=== PATIENT | male | born 1930 | race Caucasian/White ===

== ENCOUNTER 2016-08-29 20:08 | Inpatient (IN) | payer OTHER, MEDICARE ==
[~2016-08-29] VITALS: Ht 190.5 cm; Wt 104.5 kg
[~2016-08-29 20:08] MED LIST: ACETAMINOPHEN/O1 TAB PO; AMLODIPINE10 MG PO; ASPIRIN81 M1 PO; ATORVASTATIN CA20 MG PO; CEFUROXIME250 M1 PO; FUROSEMIDE20 M1 PO; HYDRALAZINE HCL25 MG PO; HYDRALAZINE HCL50 M1 PO; IMDUR60 MG PO; LEVOTHROID SO0.05 MG PO; LIPITOR20 MG PO; LYRICA75 MG PO; METOPROLOL TART50 MG PO; OMEPRAZOLE20 M2 PO; PROCRIT20000 UNIT SC; ROCALTROL0.25 MCG PO; SODIUM BICARBO648 MG PO; TRANDATE100 MG PO; VALSARTAN320 MG PO; VITAMIN D1000 IU PO; ZETIA10 MG PO
--- NOTE | 2016-08-29 20:42 | ED AMS/SEIZURE/WEAK/DIZZY ---
History of Present Illness General Chief Complaint: General Adult Stated Complaint: SIB LATOYA OSMAN, KIDNEY FAILURE? Source: patient, family, old records Exam Limitations: no limitations Vital Signs & Intake/Output Vital Signs & Intake/Output Vital Signs Date Time Temp Pulse Resp B/P Pulse O2 O2 Flow FiO2 Ox Delivery Rate 08/29 2010 98.5 68 18 165/72 94 Room Air Allergies Coded Allergies: NO KNOWN ALLERGIES (09/28/15) Reconcile Medications Amlodipine Besylate (Amlodipine) 10 MG TAB 1 TAB PO DAILY HTN (Reported) Aspirin 81 MG CTB 1 TAB PO DAILY HEART (Reported) Atorvastatin Calcium (Lipitor) 20 MG TAB 1 TAB PO DAILY CHOLESTEROL (Reported ) Calcitriol (Rocaltrol) 0.25 MCG SGL 1 CAP PO DAILY VIT (Reported) Epoetin Earnest (Procrit) 20,000 UNIT/1 ML VIAL 30,000 U SC ONCE A WEEK ANEMIA Ezetimibe (Zetia) 10 MG TAB 1 TAB PO DAILY CHOLESTEROL (Reported) Furosemide 20 MG TABLET 20 MG PO DAILY HEART FAILURE Hydralazine HCl 50 MG TABLET 1 TAB PO BID HTN (Reported) Isosorbide Mononitrate (Imdur) [address] 1 TAB PO DAILY HEART (Reported) Labetalol (Trandate) 100 MG TABLET 300 MG PO BID BLOOD PRESSURE Levothyroxine Sodium (Levothroid Sodium) 0.05 MG TAB 1 TAB PO DAILY THYROID ( Reported) Omeprazole 20 MG CAPSULE.DR 40 MG PO BID gi bleed Pregabalin (Lyrica) 75 MG CAP 1 TAB PO DAILY PAIN (Reported) Sodium Bicarbonate 648 MG TAB 1 TAB PO DAILY HEART (Reported) Triage Note: PT SENT TO ER BY LATOYA OSMAN DUE TO CREATNINE LEVL WENT FROM 2.7-5.5. PT OFFERS NO COMPLAINTS TO THIS NURSE Triage Nurses Notes Reviewed? yes Onset: Gradual Duration: day(s): Timing: recent history Injury Environment: home Severity: mild Modifying Factors: Worsens With: other ("Not drinking so much"). Associated Symptoms: increased weakness and confusion HPI: 86 yo gentleman h/o chf, h/o renal failure, was on dialysis x 3 days in 2016, presents with elevated creatinine of 5.5, sent in by his primary care provider. His family reports that he has had increased weakness and confusion in recent weeks, has had decreased oral intake, no fluid retention/fever/dyspnea/dysuria/ chest pain. He has been taking his lasix as directed. He is otherwise well. Past History Travel History Traveled to [place] past 21 day No Medical History Any Pertinent Medical History? see below for history Neurological: shingles- left flank EENT: NONE Cardiovascular: CAD (s/p CABG x 5), diastolic CHF, hypertension, hyperlipidemia, atrial tachycardia Respiratory: pneumonia Gastrointestinal: NONE Hepatic: NONE Renal: chronic kidney disease (stage 4) Musculoskeletal: chronic back pain (implanted stimulator device), osteoarthritis Psychiatric: NONE Endocrine: hypothyroidism Blood Disorders: anemia Cancer(s): colon/rectal cancer [place] MARSHAL/Reproductive: NONE History of MRSA: No History of VRE: No History of CDIFF: No Surgical History Surgical History: CABG, colon resection (sigmoid - Diaz A colon Ca), knee replacement, nerve stimulator Psychosocial History Who do you live with Spouse What is your primary language Niuean Tobacco Use: Never used ETOH Use: denies use Illicit Drug Use: denies illicit drug use Family History Family History, If Any: MOTHER, , Age 58; Cause: Colon cancer. FATHER, , Age 70; Cause: Myocardial infarction. Relation not specified for: colon cancer in mother Hx Contributory? No Review of Systems Review of Systems Constitutional: Reports: no symptoms. EENTM: Reports: no symptoms. Respiratory: Reports: no symptoms. Cardiovascular: Reports: no symptoms. GI: Reports: no symptoms. Genitourinary: Reports: no symptoms. Musculoskeletal: Reports: no symptoms. Skin: Reports: no symptoms. Neurological/Psychological: Reports: no symptoms. Hematologic/Endocrine: Reports: no symptoms. Immunologic/Allergic: Reports: no symptoms. All Other Systems: Reviewed and Negative Physical Exam Physical Exam General Appearance: well developed/nourished, no apparent distress, alert, mild distress Head: atraumatic, normal appearance Eyes: Bilateral: normal appearance. Ears, Nose, Throat: normal pharynx, normal ENT inspection, dry mucosa Neck: normal inspection, supple, full range of motion Respiratory: normal breath sounds, chest non-tender, no respiratory distress, quiet respiration, lungs clear Cardiovascular: regular rate/rhythm Gastrointestinal: normal bowel sounds, soft, non-tender, no organomegaly Back: normal inspection, normal range of motion Extremities: normal range of motion Neurologic/Psych: no motor/sensory deficits, awake, alert, oriented x 3 Skin: intact, normal color, warm/dry Core Measures ACS in differential dx? No CVA/TIA Diagnosis: No Severe Sepsis Present: No Septic Shock Present: No Progress Differential Diagnosis: dehydration, electrolyte imbalance, hypoglycemia Plan of Care: Orders Procedure Date/time Status Nothing by Mouth 08/30 B Active Saline Lock 08/29 2051 Active Misc Message 08/29 2051 Active ED Holding Orders 08/29 2051 Active Admit to inpatient 08/29 2051 Active Vital Signs 08/29 2051 Active AMMONIA 08/29 2051 Complete Code Status 08/29 2051 Active EKG 08/29 2050 Active Mims, Insertion/Removal/Asses 08/29 2049 Active CULTURE,URINE 08/29 2049 Active URINALYSIS 08/29 2049 Complete LIPASE 08/29 2018 Complete HEPATIC FUNCTION PANEL 08/29 2018 Complete CBC WITHOUT DIFFERENTIAL 08/29 2018 Complete BASIC METABOLIC PANEL 08/29 2018 Complete AMYLASE 08/29 2018 Complete Laboratory Tests 08/29/162124: Urine Color STRAW, Urine Clarity CLEAR, Urine pH 6.0, Ur Specific [place] 1.015, Urine Protein TRACE H, Urine Ketones NEG, Urine Nitrite NEG, Urine Bilirubin NEG, Urine Urobilinogen 0.2, Ur Leukocyte Esterase NEG, Ur Microscopic SEDIMENT EXAMINED, Urine RBC RARE, Urine Bacteria RARE H, Hyaline Casts 1-3 H, Urine Hemoglobin NEG, Urine Glucose NEG 08/29/16 2100: Ammonia 12 08/29/16 2100: Anion Gap 14, Estimated GFR 10 L, BUN/Creatinine Ratio 16.7, Glucose 118 H, Calcium 9.7, Total Bilirubin 0.7, Direct Bilirubin 0.6 H, AST 24, ALT 24, Alkaline Phosphatase 70, Total Protein 7.3, Albumin 4.3, Amylase 155 H, Lipase 443 H, CBC w Diff NO MAN DIFF REQ, RBC 3.78 L, MCV 87.7, MCH 29.6, RDW 13.7, MPV 8.0, Gran % 72.6, Lymphocytes % 10.5 L, Monocytes % 10.6 H, Eosinophils % 6.0 H, Basophils % 0.3, Absolute Granulocytes 3.5, Absolute Lymphocytes 0.5 L, Absolute Monocytes 0.5, Absolute Eosinophils 0.3, Absolute Basophils 0, PUBS MCHC 33.8 Microbiology 08/29 2124 URINE ROUT: Urine Culture - RECD Initial ED EKG: normal axis, normal intervals, normal p-waves, normal QRS complex, normal sinus rhythm Departure Departure Disposition: STILL A PATIENT Condition: Stable Clinical Impression Primary Impression: Renal failure Referrals: TAI OSMAN APRN (PCP/Family) Departure Forms: Customer Survey General Discharge Information Admission Note Spoke With: ALAN MCLEAN MD Documentation of Exam: Documentation of any treatments & extenuating circumstances including Concerns Regarding Discharge (functional status, medication knowledge or non-compliance, living conditions, etc.) that warrant an admission rather than observation: pt with creatinine of 5.5, most consistent with pre-renal azotemia vs post renal vs intrinsic renal failure.... pt merits trial of iv fluids, follow creatinine, electrolytes, volume status. stable for gen med Regarding Discharge (functional status, medication knowledge or non-compliance, living conditions, etc.) that warrant an admission rather than observation: pt with creatinine of 5.5, most consistent with pre-renal azotemia vs post renal vs intrinsic renal failure.... pt merits trial of iv fluids, follow creatinine, electrolytes, volume status. stable for gen med
[2016-08-29 21:19] LABS: ABSOLUTE BASOPHIL COUNT 0 /CUMM (0.0-0.2); ABSOLUTE EOSINOPHIL COUNT 0.3 /CUMM (0.0-0.7); ABSOLUTE GRANULOCYTE CT 3.5 /CUMM (1.4-6.5); ABSOLUTE LYMPH COUNT 0.5 /CUMM (1.2-3.4); ABSOLUTE MONOCYTE COUNT 0.5 /CUMM (0.10-0.60); BASOPHIL % 0.3 % (0.0-2.0); GRANULOCYTE % 72.6 % (42.2-75.2); HEMATOCRIT 33.1 % (42-52); MEAN CORPUSCULAR HGB 29.6 PG (27.0-31.0); MEAN CORPUSCULAR HGB CONC 33.8 G/DL (33.0-37.0); MEAN CORPUSCULAR VOLUME 87.7 FL (80.0-94.0); PLATELET COUNT 169 /CUMM (130-400); RBC DISTRIBUTION WIDTH 13.7 % (11.5-14.5); RED BLOOD CELL CT 3.78 /CUMM (4.70-6.10); WHITE BLOOD CELL COUNT 4.8 /CUMM (4.8-10.8)
[2016-08-29] MEDS ORDERED: ZETIA10 M1 PO (22:34)
[2016-08-29] MEDS ORDERED: HYDRALAZINE HC100 M1 PO (22:39)
[2016-08-29] MEDS ORDERED: ATORVASTATIN CA20 M1 PO (22:39)
[2016-08-29] MEDS ORDERED: LABETALOL HCL300 M1 PO (22:40)
[2016-08-29] MEDS ORDERED: COLACE100 M1 PO (22:40)
[2016-08-29] MEDS ORDERED: LASIX20 M1 PO (22:41)
[2016-08-29] MEDS ORDERED: FEOSOL325 MG PO (22:42)
[2016-08-29] MEDS ORDERED: SENOKOT8.6 M2 PO (22:42)
[2016-08-29] MEDS ORDERED: ISOSORBIDE MONO60 M1 PO (22:43)
[2016-08-29] MEDS ORDERED: AMLODIPINE BESY10 M1 PO (22:43)
[2016-08-29] MEDS ORDERED: LEVOTHYROXINE50 MCG PO (22:43)
[2016-08-29] MEDS ORDERED: LYRICA75 M1 PO (22:44)
[2016-08-29] MEDS ORDERED: VITAMIN D1000 UNIT PO (22:44)
[2016-08-29] MEDS ORDERED: LIDO TOP (22:49)
[2016-08-29] MEDS ORDERED: [UNRECOGNIZED DRUG - OTHER] TOP (22:49)
[2016-08-29] MEDS ORDERED: GABA TOP (22:49)
[2016-08-29] MEDS ORDERED: ERYTHROMYCIN1 GM OPH (22:50)
[2016-08-30 00:26] VITALS: BP 210/96
--- NOTE | 2016-08-30 00:27 | History & Physical ---
HE BAIN,ENRIQUE 08/30/16 0026: General Information and HPI MD Statement: I have seen and personally examined IRIS DREW SR and documented this H&P. The patient is a 86 year old M who presented with a patient stated chief complaint of []. Source of Information: patient Exam Limitations: no limitations History of Present Illness: Patient is an 86-year-old male with a past medical history of CAD (s/p CABG x 5) , LVEF> 55%, hypertension, hyperlipidemia, diastolic heart failure, stage IV chronic kidney disease,Chronic back pain (implanted stimulator device). He was having chest pain, on the left side of chest secondary to postherpetic neuralgia. It was terrible and was uncontrollable for him so he visited his PCP. He advised for blood work up and even chest CT scan to know exactly what is going on. On blood work up. It was found that his creatinine has been an increase to 5.4, so he was advised to visit [facility]. Most of the information is taken from the . According to her, patient was having hallucinations since last 2 days and he was sleeping more and more today. Patient denies fever, chills, dysuria, diarrhea, constipation, nausea, no vomiting, chest pain, shortness of breath, palpitation. According to the patient was tested for sleep apnea in past by Dr. Currie, and advised to have CPAP, but because he was having very severe dryness of the mouth, he is avoiding it. He is also on 2 liters of oxygen via nasal cannula at home, he uses it only in the night or when his saturation goes down to 88 percent. also requested to inform Dr. Zack Cross at [facility] for this admission. He is having history of chronic back pain (implanted stimulator device) and following the pain specialist Dr goff. Personal history-he walks independently, he quit smoking 25 years ago, he denies use of alcohol, he lives with the . Allergies-drug allergies Summer Child Caregiver-Dr. Currie Coordinator Of Online Programs-Andrea Levine MD Allergies/Medications Allergies: Coded Allergies: NO KNOWN ALLERGIES (09/28/15) Home Med list Amlodipine Besylate 10 MG TABLET 1 TAB PO DAILY BP (Reported) Atorvastatin Calcium 20 MG TABLET 1 TAB PO DAILY CHOLESTEROL (Reported) Cholecalciferol (Vitamin D3) (Vitamin D) 1,000 UNIT TABLET 1 TAB PO DAILY SUPPLEMENT (Reported) Docusate Sodium (Colace) 100 MG CAPSULE 1 CAP PO BID STOOL SOFTENER (Reported ) Epoetin Earnest (Procrit) 20,000 UNIT/1 ML VIAL 30,000 U SC ONCE A WEEK ANEMIA Erythromycin Base (Erythromycin) 5 MG/GRAM (0.5 %) OINT...G. 1 ANI OPH QHS RIGHT LOWER LID (Reported) apply 1 cm ribbon into the lower conjunctival sac Ezetimibe (Zetia) 10 MG TABLET 1 TAB PO DAILY CHOLESTEROL (Reported) Ferrous Sulfate (IRON) (Unknown Strength) TABLET 2 TAB PO BID SUPPLEMENT ( Reported) Furosemide (Lasix) 20 MG TABLET 60 MG PO QAM DIURETIC (Reported) Furosemide 20 MG TABLET 20 MG PO DAILY HEART FAILURE [Cheryl 10%/ Lido 5%/ A] 1 ANI TOP QPM NERVE PAIN -LEFT SIDE UNDER AR (Reported) Hydralazine HCl 100 MG TABLET 1 TAB PO BID BP (Reported) Isosorbide Mononitrate (Isosorbide Mononitrate ER) 60 MG TAB.ER.24H 1 TAB PO DAILY HEART (Reported) Labetalol HCl 300 MG TABLET 1 TAB PO BID BP (Reported) Levothyroxine Sodium 50 MCG TABLET 1 TAB PO DAILY THYROID (Reported) Omeprazole 20 MG CAPSULE.DR 40 MG PO BID gi bleed Pregabalin (Lyrica) 75 MG CAPSULE 1 CAP PO QPM NERVE PAIN (Reported) Sennosides (Senokot) 8.6 MG TABLET 1 TAB PO DAILY GI (Reported) Past History Travel History Traveled to [place] past 21 day No Medical History Neurological: shingles- left flank EENT: NONE Cardiovascular: CAD (s/p CABG x 5), diastolic CHF, hypertension, hyperlipidemia, atrial tachycardia Respiratory: pneumonia Gastrointestinal: NONE Hepatic: NONE Renal: chronic kidney disease (stage 4) Musculoskeletal: chronic back pain (implanted stimulator device), osteoarthritis Psychiatric: NONE Endocrine: hypothyroidism Blood Disorders: anemia Cancer(s): colon/rectal cancer 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 FATHER, , Age 70; Cause: Myocardial infarction. Relation not specified for: colon cancer in mother Psychosocial History Primary Language: Hungarian ETOH Use: denies use Illicit Drug Use: denies illicit drug use Living Will? yes Power of Assembler Dc Field Ring/HCP? unknown Functional Ability ADLs Independent: dressing, eating, toileting, bathing. Ambulation: independent IADLs Independent: shopping, housework, finances, food prep, telephone, transportation , medication admin. Review of Systems Review of Systems Constitutional: Denies: no symptoms. EENTM: Denies: no symptoms. Cardiovascular: Reports: chest pain. Denies: edema, orthopena, palpitations, peripheral edema, syncope. Respiratory: Denies: cough, hemoptysis, orthopnea, short of breath, sputum production, stridor. GI: Denies: no symptoms. Genitourinary: Reports: frequency. Musculoskeletal: Reports: back pain, joint pain. Denies: gout, joint swelling, muscle pain, muscle stiffness, neck pain. Skin: Reports: change in skin color, erythema. Neurological/Psychological: Reports: cognitive dysfunction, confusion, dementia. Denies: anxiety, ataxia. Exam & Diagnostic Data Last 24 Hrs of Vital Signs/I&O Vital Signs Date Time Temp Pulse Resp B/P Pulse O2 O2 Flow FiO2 Ox Delivery Rate 08/30 25 92 Room Air 08/30 25 97.6 77 20 210/96 92 Room Air 08/29 2010 98.5 68 18 165/72 94 Room Air Intake & Output 08/30 0800 08/30 0000 08/29 1600 Intake Total 1000 Output Total Balance 1000 Intake, IV 1000 Patient 108.862 kg 108.862 kg Weight Physical Exam General Appearance Alert, Oriented X3, Cooperative, No Acute Distress Skin there is area of redness and hyperalgesia on left side thorax and going to left vertebrae to middle of the chest, unilaterally HEENT Atraumatic, PERRLA, EOMI Neck Supple, No JVD Cardiovascular Normal S1, Normal S2, murmur Lungs Clear to Auscultation, Normal Air Movement Abdomen Soft, No Tenderness Neurological Normal Speech Extremities No Clubbing, No Cyanosis, No Edema Last 24 Hrs of Labs/Jamel: Laboratory Tests 08/29/162124: Urine Color STRAW, Urine Clarity CLEAR, Urine pH 6.0, Ur Specific [place] 1.015, Urine Protein TRACE H, Urine Ketones NEG, Urine Nitrite NEG, Urine Bilirubin NEG, Urine Urobilinogen 0.2, Ur Leukocyte Esterase NEG, Ur Microscopic SEDIMENT EXAMINED, Urine RBC RARE, Urine Bacteria RARE H, Hyaline Casts 1-3 H, Urine Hemoglobin NEG, Urine Glucose NEG 08/29/16 2100: Ammonia 12 08/29/16 2100: Anion Gap 14, Estimated GFR 10 L, BUN/Creatinine Ratio 16.7, Glucose 118 H, Calcium 9.7, Total Bilirubin 0.7, Direct Bilirubin 0.6 H, AST 24, ALT 24, Alkaline Phosphatase 70, Total Protein 7.3, Albumin 4.3, Amylase 155 H, Lipase 443 H, CBC w Diff NO MAN DIFF REQ, RBC 3.78 L, MCV 87.7, MCH 29.6, RDW 13.7, MPV 8.0, Gran % 72.6, Lymphocytes % 10.5 L, Monocytes % 10.6 H, Eosinophils % 6.0 H, Basophils % 0.3, Absolute Granulocytes 3.5, Absolute Lymphocytes 0.5 L, Absolute Monocytes 0.5, Absolute Eosinophils 0.3, Absolute Basophils 0, PUBS MCHC 33.8 Microbiology 08/29 2124 URINE ROUT: Urine Culture - RECD Assessment/Plan Assessment: Patient is an 86-year-old male with a past medical history of CAD (s/p CABG x 5) , LVEF> 55%, hypertension, hyperlipidemia, diastolic heart failure, stage IV chronic kidney disease,Chronic back pain (implanted stimulator device). He was having chest pain, on the left side of chest secondary to postherpetic neuralgia. It was terrible and was uncontrollable for him so he visited his PCP. He advised for blood work up and even chest CT scan to know exactly what is going on. On blood work up. It was found that his creatinine has been increase to 5.4, so he was advised to visit [facility]. chest CT was normal. Vital signs at the time of admission temperature 98.5, pulse 80, respiration 18, blood pressure 160/72, SPO2 94% on room Pertinent labs -hemoglobin 11.2, will, BUN 19, creatinine 5.4, GFR 10, carbon dioxide 31, glucose 118, direct bilirubin 0.6, a mildly is 155, lipase 443 Problem list- Shingles left side (since September 2015) CAD (s/p CABG x 5), with nuclear stress test negative for ischemia June 2015 , LVEF> 55% diastolic CHF, hypertension, hyperlipidemia, Recurrent narrow complex tachycardia, possibly an atrial tachycardia but converted to sinus rhythm after adenosine (10/19/15) no recurrence History of pneumonia, probably secondary to aspiration Stage IV chronic kidney disease Anemia of chronic kidney disease Chronic back pain (implanted stimulator device), osteoarthritis History of will Superficial right peroneal vein clot GERD History of colon resection (sigmoid - Diaz A colon Ca), History of knee replacement Plan - Acute kidney injury secondary to dehydration Patient was having dehydration, probably secondary to poor oral intake and furosemide. * We will admit the patient and the general medical floor * We will start him on IV fluids normal saline-100 mL per hour * We will avoid furosemide and other nephrotoxic medication * We will regularly monitor BEP * We will place a consult for cleaning and maintenance worker and follow the recommendation * We will follow ultrasound to r/o obstruction * Strict intake output charting * Daily weight measurement Hypertension(blood pressure 190/60) * We gave tab labetalol 200 milligrams once * We will continue all home medication except furosemide including amlodipine and hydrochlorothiazide * Vitals every shift. 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 Diet - Heart healthy Diet DVT prophylaxis-ALP S/heparin Code Status -Full Code As Ranked By This Provider Problem List: 1. Shingles (herpes zoster) polyneuropathy 2. History of colon cancer 3. Diverticulosis of colon 4. Hypertension 5. Hyperlipidemia 6. Hypothyroidism 7. BPH (benign prostatic hyperplasia) Core Measures/Miscellaneous Acute Coronary Syndrome ACS Diagnosis: No Cerebrovascular Accident CVA/TIA Diagnosis: No Congestive Heart Failure CHF Diagnosis: No Venous Thromboembolism VTE Risk Factors: Age > 40 VTE Prophylaxis Ordered Inpt: Mechanical (ALPS/TEDS) No Mech VTE prophylaxis d/t: No contraindications No VTE Pharm Prophylaxis d/t: No contraindications VTE Diagnosis: No VTE Type: NONE VTE Confirmed by (Test): NONE Severe Sepsis Severe Sepsis Present: No Septic Shock Septic Shock Present: No Miscellaneous Documentation Attending Case Discussed With: ALAN MCLEAN MD Primary Care Physician: TAI OSMAN APRN Patient sees these Specialists Dr Zack Cross - [facility]) - [phone] Dr Rosey Mcgraw Level of Patient Care: General Medicine KIRSTAMOO JOE 08/30/16 0312: Resident Review Statement Resident Statement: discussed with automotive internet sales manager Other Findings: HPI as above Assessment and plan He is 86-year-old man with past medical history of COPD, obstructive sleep apnea intolerant to CPAP, uses 2 L of oxygen at night, hypothyroidism, hypertension, dyslipidemia, diabetes mellitus, hypothyroidism, multifocal anemia, chronic low back syndrome s/p stimulator implantation, colon cancer s/p partial colectomy and coronary artery disease s/p CABG 5, history of GURPREET on CKD requiring transient HD in 2016 , history of shingles and postherpetic neuralgia. Active problems 1. Acute on chronic kidney disease. Most likely prerenal. Patient takes Lasix at home that can also cause kidney damage. Creatinine is 5.4 2. Confusion and hallucination most likely secondary to azotemia 3. Constipation 4. High blood pressure Plan We will admit patient to general medicine floor. Continue IV hydration. Repeat kidney functions in a.m. Avoid nephrotoxins. We will get renal ultrasound to rule out obstruction. Check urine lites, plasma and urine osmolality. Will hold Lasix for now. We will watch for fluid overload. Nephro consult in a.m. Patient's blood pressure was high while in hospital. He is on amlodipine, hydralazine, labetalol. He also takes imdur. According to patient took all his medications for the day before coming to hospital. He was given 200 mg of labetalol 1. We will watch blood pressure closely. We will order a bowel regimen. We will repeat EKG as admission EKG is not a good EKG. pain management. 3. Subcutaneous heparin for DVT prophylaxis. Heart healthy diet. Physical therapy evaluation and treatment. Patient is full VINAY,AARTEKhalif 08/30/16 0458: Attending MD Review Statement Attending Statement Attending MD Statement: examined this patient, discuss w/resident/PA/HEALTH CARE LEGAL ASSISTANT, agreed w/resident/PA/HEALTH CARE LEGAL ASSISTANT, discussed with family, reviewed EMR data (avail), reviewed images, amended to note Attending Assessment/Plan: CC: Worsening creatinine PMH: HTN, HLD, CAD S/P CABG, hypothyroidism, CK D, anemia, GI bleed, history of colon cancer S/P resection, HFpEF, chronic pain on pain stimulator, ROBYN not on CPAP, on nighttime oxygen. Patient was following up with PCP for feeling off balance, hallucinations, dozing off, and persistent pain in his previous shingles site since last few days. Patient was being evaluated with labs outpatient and was found to have elevated creatinine so patient was sent to ER. Patient follows outpatient with Dr. Zack Cross, cleaning and maintenance worker, patient's does not remember his most recent creatinine outpatient, options of AV fistula were not discussed anytime outpatient. Vitals: T max 98.5, pulse, RR, O2 saturation within acceptable range. Patient mildly hypertensive. On exam: A O 3, no acute distress, neck supple, no lymphadenopathy, no JVD, mucosa dry, no focal neurological deficits. CVS: S1-S2, RRR. RS: Clear to auscultate bilaterally. Abdomen: Soft, NT, ND, bowel sounds present. No dependent edema, peripheral pulses and perfusion normal. Labs: Hemoglobin 11.5, bicarbonate 31, anion gap 14, BUN 90, creatinine 5.4, glucose 118, ammonia 12, mildly is 155, lipase 443. EKG showed no acute changes A and P #1 acute on chronic kidney injury: Most recent available creatinine is immediate 2016 which is 1.6, patient's does not remember any exact value thereafter, but mentions that it might be around 2.7. Still patient's creatinine is markedly elevated along with increased BUN. Patient has symptoms of confusion, hallucinations, "dozing". Each may favor more of a chronic process. Patient is on by mouth Lasix 60 mg daily for his heart failure, on examination patient appears dehydrated. We'll continue with gentle hydration normal saline at 100 mL per hour, Lasix on hold, strict I's and O's, keep close eye on oxygenation and volume status, continue Mims catheter, nephrology consult in a.m. Patient's requests that the patient's own cleaning and maintenance worker Dr. Cross should be informed as well. Obtain renal ultrasound, chest x-ray. #2 metabolic encephalopathy probably secondary to uremia, ammonia normal. Patient has history of hallucination and confusion at home, currently oriented, watch for delirium. #3 continue all his home medications for chronic stable conditions, HTN, HLD, CAD, hypothyroidism, anemia, with amlodipine, aspirin, hydralazine, Imdur, labetalol, Synthroid, Lyrica and hold Lasix as discussed above #4 heparin for DVT prophylaxis, avoid opiates with history of hallucinations and confusion, full code. #5 patient has severe post herpetic neuralgia, has follow-up neurology outpatient appointment.
--- NOTE | 2016-08-30 05:00 | Admission Certification ---
Admission Certification Certification Statement - As attending physician, I certify that at the time of - admission, based on clinical presentation, severity of - symptoms, need for further diagnostic testing and - therapeutic interventions, and risk of adverse outcomes - without in-hospital treatment, in my clinical assessment, - this patient requires an acute hospital stay for a minimum - of two nights or longer. I have also considered psychsocial - factors such as support system, advanced age, financial - issues, cognitive issues, and failed out-patient treatments, - past re-admission history, safety of patient, and lack of - compliance as applicable. Specific rationale supporting this admission is: Acute on chronic kidney injury
[2016-08-30 08:06] LABS: ABSOLUTE BASOPHIL COUNT 0 /CUMM (0.0-0.2); ABSOLUTE EOSINOPHIL COUNT 0.2 /CUMM (0.0-0.7); ABSOLUTE GRANULOCYTE CT 3.7 /CUMM (1.4-6.5); ABSOLUTE LYMPH COUNT 0.6 /CUMM (1.2-3.4); ABSOLUTE MONOCYTE COUNT 0.4 /CUMM (0.10-0.60); BASOPHIL % 0.3 % (0.0-2.0); EOSINOPHIL % 4.8 % (0-5); GRANULOCYTE % 74.5 % (42.2-75.2); MEAN CORPUSCULAR HGB CONC 33.9 G/DL (33.0-37.0); MEAN CORPUSCULAR VOLUME 88.5 FL (80.0-94.0); MEAN PLATELET VOLUME 8.5 FL (7.4-10.4); PLATELET COUNT 146 /CUMM (130-400); RBC DISTRIBUTION WIDTH 13.7 % (11.5-14.5); RED BLOOD CELL CT 3.51 /CUMM (4.70-6.10); WHITE BLOOD CELL COUNT 4.9 /CUMM (4.8-10.8)
[2016-08-30 09:00] VITALS: BP 186/90
--- NOTE | 2016-08-30 09:08 | ULTRASOUND REPORT ---
EXAMINATION: US RETROPERITONEAL COMPLETE (RENAL) CLINICAL INFORMATION: 86-year-old male with acute kidney injury. Suspected obstruction. COMPARISON: CT of the abdomen and pelvis done on 10/20/2015. TECHNIQUE: Real-time imaging of the kidneys and bladder. FINDINGS: RIGHT KIDNEY: 10.6 x 4.3 x 4.9 cm (SAG x AP x TRV). Marked diffuse cortical thinning is noted throughout the entire right kidney without evidence of any hydronephrosis. There are 3 cortical renal cysts identified, the largest seen at the inferior pole, measures 3.6 x 2.0 x 2.8 cm. The second smaller cortical cyst is noted at the mid pole, measures 2.1 x 1.9 x 2.0 cm. The superior polar cyst measures 1.8 x 1.6 x 1.8 cm. LEFT KIDNEY: 11.1 x 6.0 x 6.3 cm (SAG x AP x TRV). Moderate diffuse cortical thinning is present with no evidence of any hydronephrosis. Superimposed multiple cystic abnormalities are present, one at the upper pole measures 2.0 x 1.8 x 2.5 cm, while the cystic abnormality seen at the mid pole measures 2.5 x 2.0 x 2.1 cm. BLADDER: Bladder is decompressed. There is a Mims catheter present. IMPRESSION: 1. Bilateral normal size kidneys with evidence of marked diffuse cortical thinning on the right and moderate diffuse cortical thinning on the left with superimposed multiple cystic abnormalities, as described above. 2. No sonographic evidence of hydronephrosis on either side.
--- NOTE | 2016-08-30 09:29 | RADIOLOGY REPORT ---
EXAMINATION: XR PORTABLE CHEST CLINICAL INFORMATION: Confusion and weakness. Increased creatinine level. COMPARISON: 05/19/2016 TECHNIQUE: Portable AP view of the chest was obtained. FINDINGS: Left diaphragm is chronically elevated and platelike atelectasis is present within the lingula. No acute pulmonary edema, focal consolidation or pleural effusion. Cardiac silhouette is mildly enlarged, status post CABG. Thoracic aorta is calcified. No acute skeletal findings. IMPRESSION: 1. No acute cardiopulmonary abnormality compared to 05/19/2016. 2. Mild cardiomegaly without congestive heart failure. 3. Chronically elevated left diaphragm with platelike atelectasis in the lingula.
--- NOTE | 2016-08-30 12:44 | Cons- Nephrology ---
General Information and HPI Consulting Request Date of Consult: 08/30/16 Requested By: ALAN MCLEAN MD Reason for Consult: GURPREET on CKD Source of Information: patient, family, old records Exam Limitations: no limitations History of Present Illness: Patient is an 86-year-old male with a past medical history most significant for chronic kidney disease (baseline creatinine around 2 as per the patient's ; was recently in our system was 1.6 back in November 2015) with an episode of GURPREET requiring dialysis in October of 2015 from which he recovered (at [facility] - in the setting of sepsis), CAD status post CABG, heart failure with a preserved ejection fraction, hypertension, hyperlipidemia who presents for abnormal blood work. Patient had been in his usual state of health when he started developing swelling along his left chest a/w pain. This is the spot that he had zoster in the past. He underwent a CT of the chest on 08/22/16 without contrast which did not demonstrate any acute abnormalities (although of note did have what was thought to be partially visualized possible L renal hemorrhagic/proteinaceous cysts). His reports that starting around 08/26, he started developing hallucinations. His said that this came on all of a sudden. No other specific abnormalities or complaints (no fevers, chills, urinary symptoms, lightheadedness, dizziness, or decreased PO intake). He was able to take his medications which included Lasix during this time. His said that he was not taking any NSAID's. Of note, he is not on an ARSENIO-I or ARB. He had his blood drawn yesterday which demonstrated a creatinine of 5.4 for which he was sent into the hospital for further evaluation. In the hospital, he was given intravenous fluid. A Cruz catheter was placed. His repeat creatinine was 5.0. Labs otherwise notable for hemoglobin of 10.5, white blood cell count 4.9, lipase 443 (newly elevated), and UA with trace protein and no cells. In speaking to the patient has , his hallucinations have resolved. The patient was thirsty but reported no other specific complaints. Allergies/Medications Allergies: Coded Allergies: NO KNOWN ALLERGIES (09/28/15) Home Med List: Amlodipine Besylate 10 MG TABLET 1 TAB PO DAILY BP (Reported) Atorvastatin Calcium 20 MG TABLET 1 TAB PO DAILY CHOLESTEROL (Reported) Cholecalciferol (Vitamin D3) (Vitamin D) 1,000 UNIT TABLET 1 TAB PO DAILY SUPPLEMENT (Reported) Docusate Sodium (Colace) 100 MG CAPSULE 1 CAP PO BID STOOL SOFTENER (Reported ) Epoetin Earnest (Procrit) 20,000 UNIT/1 ML VIAL 30,000 U SC ONCE A WEEK ANEMIA Erythromycin Base (Erythromycin) 5 MG/GRAM (0.5 %) OINT...G. 1 ANI OPH QHS RIGHT LOWER LID (Reported) apply 1 cm ribbon into the lower conjunctival sac Ezetimibe (Zetia) 10 MG TABLET 1 TAB PO DAILY CHOLESTEROL (Reported) Ferrous Sulfate (IRON) (Unknown Strength) TABLET 2 TAB PO BID SUPPLEMENT ( Reported) Furosemide (Lasix) 20 MG TABLET 60 MG PO QAM DIURETIC (Reported) Furosemide 20 MG TABLET 20 MG PO DAILY HEART FAILURE [Cheryl 10%/ Lido 5%/ A] 1 ANI TOP QPM NERVE PAIN -LEFT SIDE UNDER AR (Reported) Hydralazine HCl 100 MG TABLET 1 TAB PO BID BP (Reported) Isosorbide Mononitrate (Isosorbide Mononitrate ER) 60 MG TAB.ER.24H 1 TAB PO DAILY HEART (Reported) Labetalol HCl 300 MG TABLET 1 TAB PO BID BP (Reported) Levothyroxine Sodium 50 MCG TABLET 1 TAB PO DAILY THYROID (Reported) Omeprazole 20 MG CAPSULE.DR 40 MG PO BID gi bleed Pregabalin (Lyrica) 75 MG CAPSULE 1 CAP PO QPM NERVE PAIN (Reported) Sennosides (Senokot) 8.6 MG TABLET 1 TAB PO DAILY GI (Reported) Current Medications: Current Medications Sig/Tiffanie Start time Last Medication Dose Route Stop Time Status Admin Acetaminophen 650 MG Q6P PRN 08/30 0015 AC PO Amlodipine Besylate 10 MG DAILY 08/30 1000 AC 08/30 PO 0841 Amlodipine Besylate 5 MG ONCE ONE 08/30 0115 CAN PO 08/30 0116 Atorvastatin Calcium 20 MG DAILY 08/30 1000 AC 08/30 PO 0841 Cholecalciferol 1,000 IU DAILY 08/30 1000 AC 08/30 PO 0842 Docusate Sodium 100 MG BID 08/30 1000 AC 08/30 PO 0841 Erythromycin 1 ANI AT BEDTIME 08/30 2200 AC OPH Ezetimibe 10 MG DAILY 08/30 1000 AC 08/30 PO 0842 Ferrous Sulfate 325 MG BID 08/30 1000 AC 08/30 PO 0841 Heparin Sodium 5,000 UNIT Q8 08/30 0600 AC 08/30 (Porcine) SC 0618 Hydralazine HCl 100 MG BID 08/30 1000 AC 08/30 PO 0841 Isosorbide 60 MG DAILY 08/30 1000 AC 08/30 Mononitrate PO 0841 Labetalol HCl 300 MG BID 08/30 1000 AC 08/30 PO 0842 Labetalol HCl 200 MG ONCE ONE 08/30 0115 DC 08/30 PO 08/30 0116 0206 Levothyroxine Sodium 0.05 MG DAILY AC 08/30 0700 AC 08/30 PO 0618 Omeprazole 40 MG 0700,1600 08/30 0700 AC 08/30 PO 0618 Patient Own 1 UNIT Q8P PRN 08/30 0115 AC Medication TOP Polyethylene Glycol 17 GM DAILY 08/30 1000 AC 08/30 PO 0842 Pregabalin 75 MG QPM 08/30 2200 AC PO Senna 187 MG DAILY 08/30 1000 AC 08/30 PO 0842 Sodium Chloride 1,000 ML Q10H 08/30 0030 AC 08/30 IV 08/30 2028 0840 Sodium Chloride 1,000 ML BOLUS ONE 08/29 2100 DC 08/29 IV 08/29 215 2150 Review of Systems Review of Systems: Complete 14 point ROS neg except as per HPI Past History Travel History Traveled to [place] past 21 day No Medical History Neurological: shingles- left flank EENT: NONE Cardiovascular: CAD (s/p CABG x 5), diastolic CHF, hypertension, hyperlipidemia, atrial tachycardia Respiratory: pneumonia Gastrointestinal: NONE Hepatic: NONE Renal: chronic kidney disease (stage 4) Musculoskeletal: chronic back pain (implanted stimulator device), osteoarthritis Psychiatric: NONE Endocrine: hypothyroidism Blood Disorders: anemia Cancer(s): colon/rectal cancer OPERATION MANAGER/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 FATHER, , Age 70; Cause: Myocardial infarction. Relation not specified for: colon cancer in mother Psychosocial History Primary Language: Hungarian Smoking Status: Former Smoker ETOH Use: denies use Illicit Drug Use: denies illicit drug use Living Will? yes Power of Clinical Asst/HCP? unknown Functional Ability ADLs Independent: dressing, eating, toileting, bathing. Ambulation: independent IADLs Independent: shopping, housework, finances, food prep, telephone, transportation , medication admin. Exam & Diagnostic Data Vital Signs and I&O Vital Signs Date Time Temp Pulse Resp B/P Pulse O2 O2 Flow FiO2 Ox Delivery Rate 08/30 0900 98.2 74 20 186/90 90 Room Air 08/30 0842 72 186/90 08/30 0841 72 186/90 08/30 0841 72 186/90 08/30 0841 72 186/90 08/30 0206 194/84 08/30 0026 92 Room Air 08/30 0026 97.6 77 20 210/96 92 Room Air 08/29 2010 98.5 68 18 165/72 94 Room Air Intake & Output 08/30 1600 08/30 0400 08/29 1600 08/29 0400 08/28 1600 08/28 0400 Intake Total 800 1000 Output Total 750 Balance 50 1000 Intake, IV 600 1000 Intake, Oral 200 Output, Urine 750 Patient 240 lb Weight Physical Exam: Gen - sleepy but OK appearing Head - NCAT Eyes - anicteric sclera, EOMI Neck - JVP visible but not up CV - RRR Chest - poor inspiratory effort but clear to auscultation Abd - soft, nontender Upper ext - no edema Lower ext - trace edema Skin - no rash Neuro - drowsy but oriented, no asterixis Results Pertinent Lab Results: Laboratory Tests 08/30 08/30 0600 0009 Chemistry Sodium (137 - 145 mmol/L) 143 Potassium (3.5 - 5.1 mmol/L) 3.6 Chloride (98 - 107 mmol/L) 104 Carbon Dioxide (22 - 30 mmol/L) 28 Anion Gap (5 - 16) 12 BUN (9 - 20 mg/dL) 92 H Creatinine (0.7 - 1.2 mg/dL) 5.0 H Estimated GFR (>60 ml/min) 11 L BUN/Creatinine Ratio (7 - 25 %) 18.4 Serum Osmolality (285 - 295 MOSM/KG) 326 H Cancelled Hematology CBC w Diff NO MAN DIFF REQ WBC (4.8 - 10.8 /CUMM) 4.9 RBC (4.70 - 6.10 /CUMM) 3.51 L Hgb (14.0 - 18.0 G/DL) 10.5 L Hct (42 - 52 %) 31.0 L MCV (80.0 - 94.0 FL) 88.5 MCH (27.0 - 31.0 PG) 30.0 RDW (11.5 - 14.5 %) 13.7 Plt Count (130 - 400 /CUMM) 146 MPV (7.4 - 10.4 FL) 8.5 Gran % (42.2 - 75.2 %) 74.5 Lymphocytes % (20.5 - 51.1 %) 11.9 L Monocytes % (1.7 - 9.3 %) 8.5 Eosinophils % (0 - 5 %) 4.8 Basophils % (0.0 - 2.0 %) 0.3 Absolute Granulocytes (1.4 - 6.5 /CUMM) 3.7 Absolute Lymphocytes (1.2 - 3.4 /CUMM) 0.6 L Absolute Monocytes (0.10 - 0.60 /CUMM) 0.4 Absolute Eosinophils (0.0 - 0.7 /CUMM) 0.2 Absolute Basophils (0.0 - 0.2 /CUMM) 0 PUBS MCHC (33.0 - 37.0 G/DL) 33.9 08/29 2100 Chemistry Ammonia (9 - 30 umol/L) 12 Urines Urine Color (YEL,AMB,STR) STRAW Urine Clarity (CLEAR) CLEAR Urine pH (5.0 - 8.0) 6.0 Ur Specific Alpha (1.001 - 1.035) 1.015 Urine Protein (NEG,<30 MG/DL) TRACE H Urine Ketones (NEG) NEG Urine Nitrite (NEG) NEG Urine Bilirubin (NEG) NEG Urine Urobilinogen (0.1 - 1.0 EU/dl) 0.2 Ur Leukocyte Esterase (NEG) NEG Ur Microscopic SEDIMENT EXAMINED Urine RBC (0 - 5 /HPF) RARE Urine Bacteria (NEG/NONE) RARE H Hyaline Casts (0/LPF) 1-3 H Urine Hemoglobin (NEG) NEG Urine Osmolality (300 - 1000 MOSM/KG) 424 Ur Random Creatinine (mg/dL) 79.8 Ur Random Sodium (30 - 90 mmol/L) 54 Ur Random Potassium (mmol/L) 31.0 Fraction Sodium Excret (<1% %) 2.5 H Urine Glucose (N MG/DL) NEG 08/29 2100 Chemistry Sodium (137 - 145 mmol/L) 145 Potassium (3.5 - 5.1 mmol/L) 3.9 Chloride (98 - 107 mmol/L) 100 Carbon Dioxide (22 - 30 mmol/L) 31 H Anion Gap (5 - 16) 14 BUN (9 - 20 mg/dL) 90 H Creatinine (0.7 - 1.2 mg/dL) 5.4 *H Estimated GFR (>60 ml/min) 10 L BUN/Creatinine Ratio (7 - 25 %) 16.7 Glucose (65 - 99 mg/dL) 118 H Calcium (8.4 - 10.2 mg/dL) 9.7 Total Bilirubin (0.2 - 1.3 mg/dL) 0.7 Direct Bilirubin (< 0.4 mg/dL) 0.6 H AST (17 - 59 U/L) 24 ALT (21 - 72 U/L) 24 Alkaline Phosphatase (< 127 U/L) 70 Total Protein (6.3 - 8.2 g/dL) 7.3 Albumin (3.5 - 5.0 g/dL) 4.3 Amylase (30 - 110 U/L) 155 H Lipase (23 - 300 U/L) 443 H Hematology CBC w Diff NO MAN DIFF REQ WBC (4.8 - 10.8 /CUMM) 4.8 RBC (4.70 - 6.10 /CUMM) 3.78 L Hgb (14.0 - 18.0 G/DL) 11.2 L Hct (42 - 52 %) 33.1 L MCV (80.0 - 94.0 FL) 87.7 MCH (27.0 - 31.0 PG) 29.6 RDW (11.5 - 14.5 %) 13.7 Plt Count (130 - 400 /CUMM) 169 MPV (7.4 - 10.4 FL) 8.0 Gran % (42.2 - 75.2 %) 72.6 Lymphocytes % (20.5 - 51.1 %) 10.5 L Monocytes % (1.7 - 9.3 %) 10.6 H Eosinophils % (0 - 5 %) 6.0 H Basophils % (0.0 - 2.0 %) 0.3 Absolute Granulocytes (1.4 - 6.5 /CUMM) 3.5 Absolute Lymphocytes (1.2 - 3.4 /CUMM) 0.5 L Absolute Monocytes (0.10 - 0.60 /CUMM) 0.5 Absolute Eosinophils (0.0 - 0.7 /CUMM) 0.3 Absolute Basophils (0.0 - 0.2 /CUMM) 0 PUBS MCHC (33.0 - 37.0 G/DL) 33.8 Imaging/Other Studies: US - US-RENAL/KIDNEY EXAMINATION: US RETROPERITONEAL COMPLETE (RENAL) CLINICAL INFORMATION: 86-year-old male with acute kidney injury. Suspected obstruction. COMPARISON: CT of the abdomen and pelvis done on 10/20/2015. TECHNIQUE: Real-time imaging of the kidneys and bladder. FINDINGS: RIGHT KIDNEY: 10.6 x 4.3 x 4.9 cm (SAG x AP x TRV). Marked diffuse cortical thinning is noted throughout the entire right kidney without evidence of any hydronephrosis. There are 3 cortical renal cysts identified, the largest seen at the inferior pole, measures 3.6 x 2.0 x 2.8 cm. The second smaller cortical cyst is noted at the mid pole, measures 2.1 x 1.9 x 2.0 cm. The superior polar cyst measures 1.8 x 1.6 x 1.8 cm. LEFT KIDNEY: 11.1 x 6.0 x 6.3 cm (SAG x AP x TRV). Moderate diffuse cortical thinning is present with no evidence of any hydronephrosis. Superimposed multiple cystic abnormalities are present, one at the upper pole measures 2.0 x 1.8 x 2.5 cm, while the cystic abnormality seen at the mid pole measures 2.5 x 2.0 x 2.1 cm. BLADDER: Bladder is decompressed. There is a Cruz catheter present. IMPRESSION: 1. Bilateral normal size kidneys with evidence of marked diffuse cortical thinning on the right and moderate diffuse cortical thinning on the left with superimposed multiple cystic abnormalities, as described above. 2. No sonographic evidence of hydronephrosis on either side. XR PORTABLE CHEST CLINICAL INFORMATION: Confusion and weakness. Increased creatinine level. COMPARISON: 05/19/2016 TECHNIQUE: Portable AP view of the chest was obtained. FINDINGS: Left diaphragm is chronically elevated and platelike atelectasis is present within the lingula. No acute pulmonary edema, focal consolidation or pleural effusion. Cardiac silhouette is mildly enlarged, status post CABG. Thoracic aorta is calcified. No acute skeletal findings. IMPRESSION: 1. No acute cardiopulmonary abnormality compared to 05/19/2016. 2. Mild cardiomegaly without congestive heart failure. 3. Chronically elevated left diaphragm with platelike atelectasis in the lingula. Assessment/Plan Assessment/Recommendations Assessment: GURPREET -will need to get in touch with the patient's outpatient fabric designer, but it does seem like there has been a significant increase in his creatinine. The reason for this is not entirely clear. His story is not completely consistent with prerenal azotemia. There is no evidence of urinary obstruction and he now has a Cruz catheter. His urinalysis is bland. I would suspect ATN versus progression of his chronic kidney disease. Since his hallucinations have reportedly resolved, and his labs are otherwise okay, there is no acute need for dialysis at this time. That being said, he will need to be carefully monitored as he may ultimately require it. Hypernatremia - Likely from decreased free water intake. Volume status - he does have trace lower exam any edema. He is on Lasix as an outpatient. Is getting intravenous fluid without evidence of pulmonary edema on his chest x-ray. Given that his creatinine is slightly improving, it is reasonable to continue this although I would stop after the current liter is finished. I suspect that his GURPREET is indurated ATN for which treatment be supportive. Giving him too much fluid would make him volume overloaded and give us a reason to need to initiate dialysis. Hallucinations -not clear that this is the result of uremia. He is also on medications such as Lyrica that may buildup with renal failure. He has other cardiovascular risk factors and may need to be ruled out for a cerebral event. 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 I suspect that the renal cysts are acquired rather than the underlying cause of his CKD as his kidneys are normal in size and he is 86 years old. Recommendations: -Would stop IVF after current bag finishes -Hold diuretics for now -Maintain cruz catheter -Would reach out to his outpatient physicians to get more recent bloodwork -Would get Hepatitis B panel in case he ultimately needs dialysis -Would get a urine sodium, creatinine, urea -Consider head imaging and careful administration of lyrica -Would switch IVF to 1/2NS given hypernatremia -Would check CK level -No clear need for dialysis today Will continue to follow. Please call [phone] with ?'s
[2016-08-30 16:42] VITALS: BP 142/80
[2016-08-30 21:21] VITALS: BP 192/96
[2016-08-30 23:27] VITALS: BP 160/76
[2016-08-31 08:00] VITALS: BP 162/74
--- NOTE | 2016-08-31 11:06 | PN- Housestaff ---
[facility] 0957: Subjective Follow-up For: Acute on chronic renal failure Hypernatremia Hallucinations Complaints: COMPLAINS OF PAIN IN THE LEFT HAND DUE TO SHINGLES Tele-Events Since Last Visit: Patient is [employer] Subjective: Patient was admitted for acute on chronic kidney injury creatinine 5.4 on admission. He was on followed by his PCP for loss of balance, hallucinations and shingles. He was given IV fluids one bag which resulted in improvement of his creatinine. Hallucinations have resolved .Nephrology on board. Patient has no complaints other than the hand pain due to shingles. Review of Systems Constitutional: Reports: no symptoms. EENTM: Reports: no symptoms. Cardiovascular: Reports: no symptoms. Respiratory: Reports: no symptoms. Gastrointestinal: Reports: no symptoms. Genitourinary: Reports: no symptoms. Musculoskeletal: Reports: muscle pain (LEFT ARM PAIN). Neurological/Psychological: Reports: no symptoms. Objective Last 24 Hrs of Vital Signs/I&O Vital Signs Date Time Temp Pulse Resp B/P Pulse O2 O2 Flow FiO2 Ox Delivery Rate 08/31 918 160/78 08/31 09 160/78 08/31 09 160/78 08/31 0919 160/78 08/31 0800 99.3 68 20 162/74 89 Room Air 08/30 2327 97.9 72 20 160/76 91 Room Air 08/30 2121 72 192/96 08/30 2112 72 192/96 08/30 2111 72 192/96 08/30 1642 98.0 64 18 142/80 93 Room Air 08/30 1600 93 Room Air Intake & Output 08/31 1600 08/31 0800 08/31 0000 Intake Total 100 600 Output Total 500 375 Balance -400 225 Intake, Oral 100 600 Number 0 Bowel Movements Output, Urine 500 375 Physical Exam General Appearance: Alert, Oriented X3, Cooperative, No Acute Distress Skin: No Rashes, No Breakdown, No Significant Lesion HEENT: Atraumatic, PERRLA, EOMI Neck: No JVD Lymphatic: Cervical nl Cardiovascular: Regular Rate, Normal S1, Normal S2 Lungs: Clear to Auscultation, Normal Air Movement Abdomen: Normal Bowel Sounds, Soft, No Tenderness Neurological: Normal Speech, Normal Tone Extremities: No Clubbing, No Cyanosis, No Edema, Normal Pulses Vascular: Normal Pulses Current Medications: Current Medications Sig/Tiffanie Start time Last Medication Dose Route Stop Time Status Admin Acetaminophen 650 MG Q6P PRN 08/30 0015 AC PO Amlodipine Besylate 10 MG DAILY 08/30 1000 AC 08/31 PO 0919 Atorvastatin Calcium 20 MG DAILY 08/30 1000 AC 08/31 PO 0919 Cholecalciferol 1,000 IU DAILY 08/30 1000 AC 08/31 PO 0919 Docusate Sodium 100 MG BID 08/30 1000 AC 08/31 PO 0919 Erythromycin 1 ANI AT BEDTIME 08/30 2200 AC 08/30 OPH 2112 Ezetimibe 10 MG DAILY 08/30 1000 AC 08/31 PO 0919 Ferrous Sulfate 325 MG BID 08/30 1000 AC 08/31 PO 0919 Heparin Sodium 5,000 UNIT Q8 08/30 0600 AC 08/31 (Porcine) SC 0636 Hydralazine HCl 100 MG BID 08/30 1000 AC 08/31 PO 0919 Isosorbide 60 MG DAILY 08/30 1000 AC 08/31 Mononitrate PO 0919 Labetalol HCl 300 MG BID 08/30 1000 AC 08/31 PO 0919 Levothyroxine Sodium 0.05 MG DAILY AC 08/30 0700 AC 08/31 PO 0636 Omeprazole 40 MG 0700,1600 08/30 0700 AC 08/31 PO 0636 Patient Medication 1 ED ONE ONE 08/30 1345 MS Teaching ED 08/30 1346 Patient Own 1 UNIT Q8P PRN 08/30 0115 AC 08/30 Medication TOP 1946 Polyethylene Glycol 17 GM DAILY 08/30 1000 AC 08/30 PO 0842 Potassium Chloride 40 MEQ ONCE ONE 08/31 0730 DC 08/31 PO 08/31 0731 0919 Pregabalin 75 MG QPM 08/30 2200 AC 08/30 PO 2112 Senna 187 MG DAILY 08/30 1000 AC 08/31 PO 0919 Sodium Chloride 1,000 ML Q10H 08/30 0030 DC 08/30 IV 08/30 2028 0840 Last 24 Hrs of Lab/Jamel Results Last 24 Hrs of Labs/Mics: Laboratory Tests 08/31/16 0630: Anion Gap 11, Estimated GFR 10 L, BUN/Creatinine Ratio 15.8, Creatine Kinase 296 H 08/30/16 1930: Urine Osmolality 481, Ur Random Creatinine 112.5, Ur Random Sodium 26 L, Ur Random Potassium 35.5, Fraction Sodium Excret 0.8 Assessment/Plan Assessment: Patient is a 86 y/o M with PMH HTN, HLD, CAD S/P CABG, hypothyroidism, CK D, anemia, GI bleed, history of colon cancer S/P resection, HFpEF, chronic pain on pain stimulator, ROBYN not on CPAP, on nighttime oxygen was admitted for worsening creatinine levels in his recent blood work. He was also being treated for balance issues and hallucinations by his PCP. Assessment and plan: 1. Acute on chronic CKD: Spoke to patient's consultant teacher Dr. Zack Cross who confirmed that patient has stage IV CKD. Last blood work from June 2016 showed a creatinine level of 2.5. Patient has been on temporary dialysis in the past. On admission creatinine was 5.4, the reason for the decline in 2 months is quite unclear.His symptoms of hallucination, balance problems could be secondary to prerenal azotemia. Urine analysis is bland. No obstruction, patient has a Mims now. * Nephrology on board. Most likely examination could be ATN due to such acute worsening in creatinine in 2 months. Patient received one bag of fluids yesterday with slight improvement of the creatinine. However this morning creatinine worsened to 5.3. * Plan is to monitor the patient for one more day. If creatinine improves, dialysis could be avoided at this admission and patient could follow up with his consultant teacher as an outpatient. * Patient has trace pedal edema on exam. No further fluids as it could lead to fluid overload mandating dialysis. * Holding Lasix for now * Continue Mims catheter * Continue to monitor BEP and creatinine kinase which is still high 2. Hypertension: Stable at 168/70 * Continue labetalol, hydralazine and amlodipine * Holding Lasix for kidney injury 3. Hallucinations: Likely secondary to prerenal azotemia * Patient is more awake and alert today * Working with PT for balance problems 4. 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 Renal cysts on CT. Normal-size kidneys. * Creatinine 2.4 in June 2016 * Was on temporary dialysis before * Manager Cath Lab is Dr. Zack Cross([phone]) Diet - Heart healthy Diet DVT prophylaxis-ALP S/heparin Code Status -Full Code Problem List: 1. Shingles (herpes zoster) polyneuropathy 2. GURPREET (acute kidney injury) 3. Dehydration Pain Ratin Pain Location: LEFT ARM Pain Goal: Pain 4 or less Pain Plan: Lyrica Tylenol Tomorrow's Labs & Rationales: BEP for elevated creatinine YENY NICK MD 08/31/16 1309: Attending MD Review Statement Attending Statement Attending MD Statement: examined this patient, discuss w/resident/PA/REMARKETING REP, agreed w/resident/PA/REMARKETING REP, reviewed EMR data (avail) Attending Assessment/Plan: Agree with resident assessment. Labs reviewed. Continues to complain of left abdominal discomfort at post-herpetic neuralgia site. No further hallucinations or psychosis, possibly medication induced in the setting of renal failure. Adequate urine output yesterday. Creatinine worsened at 5.3. Per patient's consultant teacher, his baseline is 2.5 and he has required temporary dialysis in the past. Plan - Continue to monitor urine output - Daily BEP, check UA tomorrow - Follow nephrology recommendations - Continue home medications - Avoid nephrotoxic medications - No further IV fluids - DVT PPx
--- NOTE | 2016-08-31 12:11 | PN- Nephrology ---
Assessment/Plan Assessment: GURPREET -the patient had a baseline creatinine of 2.4 in June of this year. The cause for the increase to 5.4 is not clear. He remains elevated at 5.3 today, even with cessation of diuretics and administration of intravenous fluid. There is no evidence of urinary obstruction and he currently has a Cruz catheter in place. His urine sediment is bland. A would suspect ATN as opposed to prerenal azotemia as it did not resolve with the above measures. He has no clear indication for dialysis right now. Only to await and see how his kidney function does over the next few days. This was discussed in detail with his outpatient cell feed department supervisor as well as primary team. Hypernatremia - Improved. Volume status - he seems relatively euvolemic on exam. I think that we should continue to hold his diuretics at least for today but not give him additional IV fluid. Hallucinations -resolved. As a result, not related to uremia. May have been from medications such as Lyrica building up. 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 I suspect that the renal cysts are acquired rather than the underlying cause of his CKD as his kidneys are normal in size and he is 86 years old. Suggestion: -Hold diuretics -Hold additional IVF -Maintain cruz catheter today - can likely perform trial of void in the next couple of days -No need for dialysis at this time Will continue to follow. Please call [phone] with ?'s Subjective Subjective: Pt without hallucinations No other uremic symptoms Objective Vital Signs and I&Os Vital Signs Date Time Temp Pulse Resp B/P Pulse O2 O2 Flow FiO2 Ox Delivery Rate 08/31 918 160/78 08/31 0919 160/78 08/31 0919 160/78 08/31 0919 160/78 08/31 0800 99.3 68 20 162/74 89 Room Air 08/30 2327 97.9 72 20 160/76 91 Room Air 08/30 2120 72 19208/30 211 72 19208/30 211 72 19208/30 1642 98.0 64 18 142/80 93 Room Air 08/30 1600 93 Room Air Intake & Output 08/31 1600 08/31 0400 08/30 1600 08/30 0400 08/29 1600 08/29 0400 Intake Total 126 400 3017 1000 Output Total 415 036 1244 Balance -400 075 329 3663 Intake, IV 1050 1000 Intake, Oral 100 600 800 Number 0 0 Bowel Movements Output, Urine 218 312 9298 Patient 240 lb Weight Physical Exam: Gen - NAD HEENT - JVP visible but not up CV - RRR Chest - L basilar crackles Abd - soft, nontender Ext - minimal edema Neuro - alert, oriented Current Medications: Current Medications Sig/Tiffanie Start time Last Medication Dose Route Stop Time Status Admin Acetaminophen 650 MG Q6P PRN 08/30 0015 AC PO Amlodipine Besylate 10 MG DAILY 08/30 1000 AC 08/31 PO 0919 Atorvastatin Calcium 20 MG DAILY 08/30 1000 AC 08/31 PO 0919 Cholecalciferol 1,000 IU DAILY 08/30 1000 AC 08/31 PO 0919 Docusate Sodium 100 MG BID 08/30 1000 AC 08/31 PO 0919 Erythromycin 1 ANI AT BEDTIME 08/30 2200 AC 08/30 OPH 2112 Ezetimibe 10 MG DAILY 08/30 1000 AC 08/31 PO 0919 Ferrous Sulfate 325 MG BID 08/30 1000 AC 08/31 PO 0919 Heparin Sodium 5,000 UNIT Q8 08/30 0600 AC 08/31 (Porcine) SC 0636 Hydralazine HCl 100 MG BID 08/30 1000 AC 08/31 PO 0919 Isosorbide 60 MG DAILY 08/30 1000 AC 08/31 Mononitrate PO 0919 Labetalol HCl 300 MG BID 08/30 1000 AC 08/31 PO 0919 Levothyroxine Sodium 0.05 MG DAILY AC 08/30 0700 AC 08/31 PO 0636 Omeprazole 40 MG 0700,1600 08/30 0700 AC 08/31 PO 0636 Patient Medication 1 ED ONE ONE 08/30 1345 DC Teaching ED 08/30 1346 Patient Own 1 UNIT Q8P PRN 08/30 0115 AC 08/30 Medication TOP 1946 Polyethylene Glycol 17 GM DAILY 08/30 1000 AC 08/30 PO 0842 Potassium Chloride 40 MEQ ONCE ONE 08/31 0730 DC 08/31 PO 08/31 0731 0919 Pregabalin 75 MG QPM 08/30 2200 AC 08/30 PO 2112 Senna 187 MG DAILY 08/30 1000 AC 08/31 PO 0919 Sodium Chloride 1,000 ML Q10H 08/30 0030 DC 08/30 IV 08/30 2028 0840 Results Pertinent Lab Results: Laboratory Tests 08/31 08/30 08/30 0630 1930 0600 Chemistry Sodium (137 - 145 mmol/L) 141 143 Potassium (3.5 - 5.1 mmol/L) 3.9 3.6 Chloride (98 - 107 mmol/L) 102 104 Carbon Dioxide (22 - 30 mmol/L) 29 28 Anion Gap (5 - 16) 11 12 BUN (9 - 20 mg/dL) 84 H 92 H Creatinine (0.7 - 1.2 mg/dL) 5.3 *H 5.0 H Estimated GFR (>60 ml/min) 10 L 11 L BUN/Creatinine Ratio (7 - 25 %) 15.8 18.4 Serum Osmolality (285 - 295 MOSM/KG) 326 H Creatine Kinase (55 - 170 U/L) 296 H 370 H Hematology CBC w Diff NO MAN DIFF REQ WBC (4.8 - 10.8 /CUMM) 4.9 RBC (4.70 - 6.10 /CUMM) 3.51 L Hgb (14.0 - 18.0 G/DL) 10.5 L Hct (42 - 52 %) 31.0 L MCV (80.0 - 94.0 FL) 88.5 MCH (27.0 - 31.0 PG) 30.0 RDW (11.5 - 14.5 %) 13.7 Plt Count (130 - 400 /CUMM) 146 MPV (7.4 - 10.4 FL) 8.5 Gran % (42.2 - 75.2 %) 74.5 Lymphocytes % (20.5 - 51.1 %) 11.9 L Monocytes % (1.7 - 9.3 %) 8.5 Eosinophils % (0 - 5 %) 4.8 Basophils % (0.0 - 2.0 %) 0.3 Absolute Granulocytes (1.4 - 6.5 /CUMM) 3.7 Absolute Lymphocytes (1.2 - 3.4 /CUMM) 0.6 L Absolute Monocytes (0.10 - 0.60 /CUMM) 0.4 Absolute Eosinophils (0.0 - 0.7 /CUMM) 0.2 Absolute Basophils (0.0 - 0.2 /CUMM) 0 PUBS MCHC (33.0 - 37.0 G/DL) 33.9 Serology Hepatitis A IgM Ab (NONREACTIVE) NONREACTIVE Hep Bs Antigen (NONREACTIVE) NONREACTIVE Hep B Core IgM Ab Conf (NONREACTIVE) NONREACTIVE Hepatitis C Antibody (NONREACTIVE) NONREACTIVE Urines Urine Osmolality (300 - 1000 MOSM/KG) 481 Ur Random Creatinine (mg/dL) 112.5 Ur Random Sodium (30 - 90 mmol/L) 26 L Ur Random Potassium (mmol/L) 35.5 Fraction Sodium Excret (<1% %) 0.8 08/30 08/29 08/29 0009 2125 212 Chemistry Serum Osmolality Cancelled Miscellaneous Ref Lab Test Result Pending Urines Urine Color (YEL,AMB,STR) STRAW Urine Clarity (CLEAR) CLEAR Urine pH (5.0 - 8.0) 6.0 Ur Specific [place] (1.001 - 1.035) 1.015 Urine Protein (NEG,<30 MG/DL) TRACE H Urine Ketones (NEG) NEG Urine Nitrite (NEG) NEG Urine Bilirubin (NEG) NEG Urine Urobilinogen (0.1 - 1.0 EU/dl) 0.2 Ur Leukocyte Esterase (NEG) NEG Ur Microscopic SEDIMENT EXAMINED Urine RBC (0 - 5 /HPF) RARE Urine Bacteria (NEG/NONE) RARE H Hyaline Casts (0/LPF) 1-3 H Urine Hemoglobin (NEG) NEG Urine Osmolality (300 - 1000 MOSM/KG) 424 Ur Random Creatinine (mg/dL) 79.8 Ur Random Sodium (30 - 90 mmol/L) 54 Ur Random Potassium (mmol/L) 31.0 Fraction Sodium Excret (<1% %) 2.5 H Urine Glucose (N MG/DL) NEG 08/29 08/29 2100 2100 Chemistry Sodium (137 - 145 mmol/L) 145 Potassium (3.5 - 5.1 mmol/L) 3.9 Chloride (98 - 107 mmol/L) 100 Carbon Dioxide (22 - 30 mmol/L) 31 H Anion Gap (5 - 16) 14 BUN (9 - 20 mg/dL) 90 H Creatinine (0.7 - 1.2 mg/dL) 5.4 *H Estimated GFR (>60 ml/min) 10 L BUN/Creatinine Ratio (7 - 25 %) 16.7 Glucose (65 - 99 mg/dL) 118 H Calcium (8.4 - 10.2 mg/dL) 9.7 Total Bilirubin (0.2 - 1.3 mg/dL) 0.7 Direct Bilirubin (< 0.4 mg/dL) 0.6 H AST (17 - 59 U/L) 24 ALT (21 - 72 U/L) 24 Alkaline Phosphatase (< 127 U/L) 70 Ammonia (9 - 30 umol/L) 12 Total Protein (6.3 - 8.2 g/dL) 7.3 Albumin (3.5 - 5.0 g/dL) 4.3 Amylase (30 - 110 U/L) 155 H Lipase (23 - 300 U/L) 443 H Hematology CBC w Diff NO MAN DIFF REQ WBC (4.8 - 10.8 /CUMM) 4.8 RBC (4.70 - 6.10 /CUMM) 3.78 L Hgb (14.0 - 18.0 G/DL) 11.2 L Hct (42 - 52 %) 33.1 L MCV (80.0 - 94.0 FL) 87.7 MCH (27.0 - 31.0 PG) 29.6 RDW (11.5 - 14.5 %) 13.7 Plt Count (130 - 400 /CUMM) 169 MPV (7.4 - 10.4 FL) 8.0 Gran % (42.2 - 75.2 %) 72.6 Lymphocytes % (20.5 - 51.1 %) 10.5 L Monocytes % (1.7 - 9.3 %) 10.6 H Eosinophils % (0 - 5 %) 6.0 H Basophils % (0.0 - 2.0 %) 0.3 Absolute Granulocytes (1.4 - 6.5 /CUMM) 3.5 Absolute Lymphocytes (1.2 - 3.4 /CUMM) 0.5 L Absolute Monocytes (0.10 - 0.60 /CUMM) 0.5 Absolute Eosinophils (0.0 - 0.7 /CUMM) 0.3 Absolute Basophils (0.0 - 0.2 /CUMM) 0 PUBS MCHC (33.0 - 37.0 G/DL) 33.8 Imaging/Other Studies: EXAM TYPE: US - US-RENAL/KIDNEY EXAMINATION: US RETROPERITONEAL COMPLETE (RENAL) CLINICAL INFORMATION: 86-year-old male with acute kidney injury. Suspected obstruction. COMPARISON: CT of the abdomen and pelvis done on 10/20/2015. TECHNIQUE: Real-time imaging of the kidneys and bladder. FINDINGS: RIGHT KIDNEY: 10.6 x 4.3 x 4.9 cm (SAG x AP x TRV). Marked diffuse cortical thinning is noted throughout the entire right kidney without evidence of any hydronephrosis. There are 3 cortical renal cysts identified, the largest seen at the inferior pole, measures 3.6 x 2.0 x 2.8 cm. The second smaller cortical cyst is noted at the mid pole, measures 2.1 x 1.9 x 2.0 cm. The superior polar cyst measures 1.8 x 1.6 x 1.8 cm. LEFT KIDNEY: 11.1 x 6.0 x 6.3 cm (SAG x AP x TRV). Moderate diffuse cortical thinning is present with no evidence of any hydronephrosis. Superimposed multiple cystic abnormalities are present, one at the upper pole measures 2.0 x 1.8 x 2.5 cm, while the cystic abnormality seen at the mid pole measures 2.5 x 2.0 x 2.1 cm. BLADDER: Bladder is decompressed. There is a Cruz catheter present. IMPRESSION: 1. Bilateral normal size kidneys with evidence of marked diffuse cortical thinning on the right and moderate diffuse cortical thinning on the left with superimposed multiple cystic abnormalities, as described above. 2. No sonographic evidence of hydronephrosis on either side. EXAM TYPE: RAD - XRY-PORTABLE CHEST XRAY EXAMINATION: XR PORTABLE CHEST CLINICAL INFORMATION: Confusion and weakness. Increased creatinine level. COMPARISON: 05/19/2016 TECHNIQUE: Portable AP view of the chest was obtained. FINDINGS: Left diaphragm is chronically elevated and platelike atelectasis is present within the lingula. No acute pulmonary edema, focal consolidation or pleural effusion. Cardiac silhouette is mildly enlarged, status post CABG. Thoracic aorta is calcified. No acute skeletal findings. IMPRESSION: 1. No acute cardiopulmonary abnormality compared to 05/19/2016. 2. Mild cardiomegaly without congestive heart failure. 3. Chronically elevated left diaphragm with platelike atelectasis in the lingula.
[2016-08-31 15:18] VITALS: BP 120/70
[2016-08-31 22:00] VITALS: BP 140/80
--- NOTE | 2016-09-01 07:39 | PN- Housestaff ---
[facility] 0724: Subjective Follow-up For: Acute on chronic renal failure Hypernatremia Hallucinations Complaints: confused , no complaints Subjective: Patient appears confused this morning. He is not alert, oriented 3. Denies any nausea, vomiting, abdominal pain, urinary or bowel symptoms. He seems to be hallucinating and thinks he is at his friend's home. He is making urine. Review of Systems Constitutional: Reports: no symptoms. EENTM: Reports: no symptoms. Cardiovascular: Reports: no symptoms. Respiratory: Reports: no symptoms. Gastrointestinal: Reports: no symptoms. Genitourinary: Reports: no symptoms. Neurological/Psychological: Reports: confusion. Objective Last 24 Hrs of Vital Signs/I&O Vital Signs Date Time Temp Pulse Resp B/P Pulse O2 O2 Flow FiO2 Ox Delivery Rate 08/31 2203 70 140/80 08/31 2200 98.0 70 20 140/80 95 Room Air 08/31 1518 98.1 64 20 120/70 90 Room Air 08/31 0919 160/78 08/31 0919 160/78 08/31 0919 160/78 08/31 0919 160/78 08/31 0800 99.3 68 20 162/74 89 Room Air Intake & Output 09/01 0800 09/01 0000 08/31 1600 Intake Total 100 600 Output Total 200 450 Balance -100 150 Intake, Oral 100 600 Number 1 Bowel Movements Output, Urine 200 450 Physical Exam General Appearance: not alert, oriented X3 Skin: redness and hyperalgia on the left side of the chest. HEENT: Atraumatic, PERRLA, EOMI Neck: Supple, No JVD Lymphatic: Cervical nl Cardiovascular: Regular Rate, Normal S1, Normal S2 Lungs: bilateral basal crackles Abdomen: Normal Bowel Sounds, Soft, No Tenderness Neurological: Normal Tone, Sensation Intact Extremities: trace bilateral pedal edema Current Medications: Current Medications Sig/Tiffanie Start time Last Medication Dose Route Stop Time Status Admin Acetaminophen 650 MG Q6P PRN 08/30 0015 AC PO Amlodipine Besylate 10 MG DAILY 08/30 1000 AC 08/31 PO 918 Atorvastatin Calcium 20 MG DAILY 08/30 1000 AC 08/31 PO 918 Cholecalciferol 1,000 IU DAILY 08/30 1000 AC 08/31 PO 918 Docusate Sodium 100 MG BID 08/30 1000 AC 08/31 PO 2155 Erythromycin 1 ANI AT BEDTIME 08/30 2200 AC 08/31 OPH 2156 Ezetimibe 10 MG DAILY 08/30 1000 AC 08/31 PO 0919 Ferrous Sulfate 325 MG BID 08/30 1000 AC 08/31 PO 2155 Heparin Sodium 5,000 UNIT Q8 08/30 0600 AC 09/01 (Porcine) SC 0600 Hydralazine HCl 100 MG BID 08/30 1000 AC 08/31 PO 2202 Isosorbide 60 MG DAILY 08/30 1000 AC 08/31 Mononitrate PO 0919 Labetalol HCl 300 MG BID 08/30 1000 AC 08/31 PO 2203 Levothyroxine Sodium 0.05 MG DAILY AC 08/30 0700 AC 09/01 PO 0654 Omeprazole 40 MG 0700,1600 08/30 0700 AC 09/01 PO 0654 Patient Own 1 UNIT Q8P PRN 08/30 0115 AC 08/30 Medication TOP 1946 Polyethylene Glycol 17 GM DAILY 08/30 1000 AC 08/30 PO 0842 Potassium Chloride 40 MEQ ONCE ONE 08/31 0730 DC 08/31 PO 08/31 0731 0919 Pregabalin 75 MG QPM 08/30 2200 AC 08/31 PO 2206 Senna 187 MG DAILY 08/30 1000 AC 08/31 PO 0919 Last 24 Hrs of Lab/Jamel Results Last 24 Hrs of Labs/Mics: Laboratory Tests 09/01/16 0610: Sodium Pending, Potassium Pending, Chloride Pending, Carbon Dioxide Pending, Anion Gap Pending, BUN Pending, Creatinine Pending, BUN/Creatinine Ratio Pending , Creatine Kinase Pending Assessment/Plan Assessment: Patient is a 86 y/o M with PMH HTN, HLD, CAD S/P CABG, hypothyroidism, CK D, anemia, GI bleed, history of colon cancer S/P resection, HFpEF, chronic pain on pain stimulator, ROBYN not on CPAP, on nighttime oxygen was admitted for worsening creatinine levels in his recent blood work. He was also being treated for balance issues and hallucinations by his PCP. Assessment and plan: 1. Acute on chronic CKD 4/5: Creatinine 2.4 in June 2016. Acute worsening in the last 2 months. Patient has been on temporal dialysis in the past. * Creatinine pending this am * Repeat UA pending * Adequate urine output in the past 24 hours * IV fluids have been stopped. * Continue Mims catheter * Holding Lasix for now * Avoid nephrotoxic medications * Nephrology on board, decision regarding dialysis pending creatinine values 2. Hypertension: Stable at 140/70 * Continue labetalol, hydralazine and amlodipine * Holding Lasix for kidney injury * Continue all other home meds 3. Postherpetic neuralgia * Patient on Lyrica for pain control 4. Hallucinations: Continues to have hallucinations. * We will check back later for improvement of mentation * Working with PT for balance problems 5. 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 Renal cysts on CT. Normal-size kidneys. * Creatinine 2.4 in June 2016 * Was on temporary dialysis before * Road Sign Installer is Dr. Zack Cross([phone]) Diet - Heart healthy Diet DVT prophylaxis-ALP S/heparin Code Status -Full Code Problem List: 1. Shingles (herpes zoster) polyneuropathy 2. Acute on chronic renal failure Pain Ratin Pain Location: Left chest Pain Goal: Pain 4 or less Pain Plan: Lyrica Tylenol Tomorrow's Labs & Rationales: BEP for renal failure YENY NICK MD 09/01/16 1324: Attending MD Review Statement Attending Statement Attending MD Statement: examined this patient, discuss w/resident/PA/PROGRAMMER OPERATOR NUMERICAL CONTROL, agreed w/resident/PA/PROGRAMMER OPERATOR NUMERICAL CONTROL, reviewed EMR data (avail) Attending Assessment/Plan: Agree with resident assessment. Labs reviewed. Continues to complain of left abdominal discomfort at post-herpetic neuralgia site. No further hallucinations or psychosis, possibly medication induced in the setting of renal failure. Adequate urine output yesterday. Creatinine worsened at 5.3. Per patient's enterprise account executive, his baseline is 2.5 and he has required temporary dialysis in the past. Plan - Continue to monitor urine output - Repeat BEP tomorrow - Follow nephrology recommendations - Continue home medications - Avoid nephrotoxic medications - No further IV fluids - DVT PPx - Anticipated discharge tomorrow. Please send CMR to pharmacy for review.
[2016-09-01 07:44] VITALS: BP 142/58
--- NOTE | 2016-09-01 11:57 | PN- Nephrology ---
Assessment/Plan Assessment: GURPREET -the patient had a baseline creatinine of 2.4 in June of this year. The cause for the increase to 5.4 is not clear. He remains elevated at 5.3 today, even with cessation of diuretics and administration of intravenous fluid (which have now been stopped). There is no evidence of urinary obstruction and he currently has a Mims catheter in place. His urine sediment is bland. A would suspect ATN as opposed to prerenal azotemia as it did not resolve with the above measures. He has no clear indication for dialysis right now. If his renal function remains stable over the next day or so and he remains lucid, I would be in favor of letting him be discharged to follow-up with his outpatient Director Of Sustainability. Hypernatremia - Improved. Volume status - he seems relatively euvolemic on exam - I think holding diuretics today would be OK. Hallucinations -resolved. As a result, not related to uremia. May have been from medications such as Lyrica building up. If his renal function does not improve significantly, the dose of this may need to be adjusted. 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 I suspect that the renal cysts are acquired rather than the underlying cause of his CKD as his kidneys are normal in size and he is 86 years old. Suggestion: -Hold diuretics today -Trial of void -f/u BMP tomorrow - if stable/decreasing, may be reasonable to discharge -Family interested in repeat CBC -No need for dialysis at this time Will continue to follow. Please call [phone] with ?'s Subjective Subjective: SCr remains at 5.3 K 4.1 and bicarb 27 Pt without specific complaints Oriented and conversive without hallucinations when I spoke to him (twice) - feels he is doing well too Mims catheter coming out today Objective Vital Signs and I&Os Vital Signs Date Time Temp Pulse Resp B/P Pulse O2 O2 Flow FiO2 Ox Delivery Rate 09/01 0744 98.4 84 20 142/58 90 Room Air 08/31 2203 70 140/80 08/31 2200 98.0 70 20 140/80 95 Room Air 08/31 1518 98.1 64 20 120/70 90 Room Air Intake & Output 09/01 1600 09/01 0400 08/31 1600 08/31 0400 08/30 1600 08/30 0400 Intake Total 200 100 582 243 7982 1000 Output Total 1050 200 952 510 0466 Balance -850 -100 -250 590 731 6335 Intake, IV 1050 1000 Intake, Oral 200 100 700 600 800 Number 1 0 0 Bowel Movements Output, Urine 1050 200 [phone] Patient 240 lb Weight Physical Exam: Gen - NAD HEENT - supple, JVP not clearly up CV - RRR Chest - clear Abd - soft, nontender Ext - no significant edema Neuro - alert, oriented, conversive Current Medications: Current Medications Sig/Tiffanie Start time Last Medication Dose Route Stop Time Status Admin Acetaminophen 650 MG Q6P PRN 08/30 0015 AC PO Amlodipine Besylate 10 MG DAILY 08/30 1000 AC 08/31 PO 0919 Atorvastatin Calcium 20 MG DAILY 08/30 1000 AC 08/31 PO 0919 Cholecalciferol 1,000 IU DAILY 08/30 1000 AC 08/31 PO 0919 Docusate Sodium 100 MG BID 08/30 1000 AC 08/31 PO 2155 Erythromycin 1 ANI AT BEDTIME 08/30 2200 AC 08/31 OPH 2156 Ezetimibe 10 MG DAILY 08/30 1000 AC 08/31 PO 0919 Ferrous Sulfate 325 MG BID 08/30 1000 AC 08/31 PO 2155 Heparin Sodium 5,000 UNIT Q8 08/30 0600 AC 09/01 (Porcine) SC 0600 Hydralazine HCl 100 MG BID 08/30 1000 AC 08/31 PO 2202 Isosorbide 60 MG DAILY 08/30 1000 AC 08/31 Mononitrate PO 0919 Labetalol HCl 300 MG BID 08/30 1000 AC 08/31 PO 2203 Levothyroxine Sodium 0.05 MG DAILY AC 08/30 0700 AC 09/01 PO 0654 Omeprazole 40 MG 0700,1600 08/30 0700 AC 09/01 PO 0654 Patient Own 1 UNIT Q8P PRN 08/30 0115 AC 08/30 Medication TOP 1946 Polyethylene Glycol 17 GM DAILY 08/30 1000 AC 08/30 PO 0842 Pregabalin 75 MG QPM 08/30 2200 AC 08/31 PO 2206 Senna 187 MG DAILY 08/30 1000 AC 08/31 PO 0919 Results Pertinent Lab Results: Laboratory Tests 09/01 09/01 08/31 08/30 0850 0610 0630 1930 Chemistry Sodium (137 - 145 mmol/L) 140 141 Potassium (3.5 - 5.1 mmol/L) 4.1 3.9 Chloride (98 - 107 mmol/L) 104 102 Carbon Dioxide (22 - 30 mmol/L) 27 29 Anion Gap (5 - 16) 9 11 BUN (9 - 20 mg/dL) 83 H 84 H Creatinine (0.7 - 1.2 mg/dL) 5.3 *H 5.3 *H Estimated GFR (>60 ml/min) 10 L 10 L BUN/Creatinine Ratio (7 - 25 %) 15.7 15.8 Creatine Kinase (55 - 170 U/L) 316 H 296 H Urines Urinalysis LIGHT H Urine Color (YEL,AMB,STR) YEL Urine Clarity (CLEAR) CLEAR Urine pH (5.0 - 8.0) 6.0 Ur Specific Holden (1.001 - 1.035) 1.015 Urine Protein (NEG,<30 MG/DL) 30 H Urine Ketones (NEG) NEG Urine Nitrite (NEG) NEG Urine Bilirubin (NEG) NEG Urine Urobilinogen (0.1 - 1.0 EU/dl) 0.2 Ur Leukocyte Esterase (NEG) NEG Ur Microscopic SEDIMENT EXAMINED Urine RBC (0 - 5 /HPF) 15-25 H Urine WBC (0 - 2 /HPF) 1-3 H Ur Epithelial Cells (NONE,FEW) RARE Urine Bacteria (NEG/NONE) FEW H Urine Hemoglobin (NEG) SMALL H Urine Osmolality (300 - 1000 MOSM/KG) 481 Ur Random Creatinine (mg/dL) 112.5 Ur Random Sodium (30 - 90 mmol/L) 26 L Ur Random Potassium (mmol/L) 35.5 Fraction Sodium Excret (<1% %) 0.8 Urine Glucose (N MG/DL) NEG 08/30 08/30 0600 0009 Chemistry Sodium (137 - 145 mmol/L) 143 Potassium (3.5 - 5.1 mmol/L) 3.6 Chloride (98 - 107 mmol/L) 104 Carbon Dioxide (22 - 30 mmol/L) 28 Anion Gap (5 - 16) 12 BUN (9 - 20 mg/dL) 92 H Creatinine (0.7 - 1.2 mg/dL) 5.0 H Estimated GFR (>60 ml/min) 11 L BUN/Creatinine Ratio (7 - 25 %) 18.4 Serum Osmolality (285 - 295 MOSM/KG) 326 H Cancelled Creatine Kinase (55 - 170 U/L) 370 H Hematology CBC w Diff NO MAN DIFF REQ WBC (4.8 - 10.8 /CUMM) 4.9 RBC (4.70 - 6.10 /CUMM) 3.51 L Hgb (14.0 - 18.0 G/DL) 10.5 L Hct (42 - 52 %) 31.0 L MCV (80.0 - 94.0 FL) 88.5 MCH (27.0 - 31.0 PG) 30.0 RDW (11.5 - 14.5 %) 13.7 Plt Count (130 - 400 /CUMM) 146 MPV (7.4 - 10.4 FL) 8.5 Gran % (42.2 - 75.2 %) 74.5 Lymphocytes % (20.5 - 51.1 %) 11.9 L Monocytes % (1.7 - 9.3 %) 8.5 Eosinophils % (0 - 5 %) 4.8 Basophils % (0.0 - 2.0 %) 0.3 Absolute Granulocytes (1.4 - 6.5 /CUMM) 3.7 Absolute Lymphocytes (1.2 - 3.4 /CUMM) 0.6 L Absolute Monocytes (0.10 - 0.60 /CUMM) 0.4 Absolute Eosinophils (0.0 - 0.7 /CUMM) 0.2 Absolute Basophils (0.0 - 0.2 /CUMM) 0 PUBS MCHC (33.0 - 37.0 G/DL) 33.9 Serology Hepatitis A IgM Ab (NONREACTIVE) NONREACTIVE Hep Bs Antigen (NONREACTIVE) NONREACTIVE Hep B Core IgM Ab Conf (NONREACTIVE) NONREACTIVE Hepatitis C Antibody (NONREACTIVE) NONREACTIVE 08/29 2100 Chemistry Ammonia (9 - 30 umol/L) 12 Miscellaneous Ref Lab Test Result (()) REPORT Urines Urine Color (YEL,AMB,STR) STRAW Urine Clarity (CLEAR) CLEAR Urine pH (5.0 - 8.0) 6.0 Ur Specific Holden (1.001 - 1.035) 1.015 Urine Protein (NEG,<30 MG/DL) TRACE H Urine Ketones (NEG) NEG Urine Nitrite (NEG) NEG Urine Bilirubin (NEG) NEG Urine Urobilinogen (0.1 - 1.0 EU/dl) 0.2 Ur Leukocyte Esterase (NEG) NEG Ur Microscopic SEDIMENT EXAMINED Urine RBC (0 - 5 /HPF) RARE Urine Bacteria (NEG/NONE) RARE H Hyaline Casts (0/LPF) 1-3 H Urine Hemoglobin (NEG) NEG Urine Osmolality (300 - 1000 MOSM/KG) 424 Ur Random Creatinine (mg/dL) 79.8 Ur Random Sodium (30 - 90 mmol/L) 54 Ur Random Potassium (mmol/L) 31.0 Fraction Sodium Excret (<1% %) 2.5 H Urine Glucose (N MG/DL) NEG 08/29 2100 Chemistry Sodium (137 - 145 mmol/L) 145 Potassium (3.5 - 5.1 mmol/L) 3.9 Chloride (98 - 107 mmol/L) 100 Carbon Dioxide (22 - 30 mmol/L) 31 H Anion Gap (5 - 16) 14 BUN (9 - 20 mg/dL) 90 H Creatinine (0.7 - 1.2 mg/dL) 5.4 *H Estimated GFR (>60 ml/min) 10 L BUN/Creatinine Ratio (7 - 25 %) 16.7 Glucose (65 - 99 mg/dL) 118 H Calcium (8.4 - 10.2 mg/dL) 9.7 Total Bilirubin (0.2 - 1.3 mg/dL) 0.7 Direct Bilirubin (< 0.4 mg/dL) 0.6 H AST (17 - 59 U/L) 24 ALT (21 - 72 U/L) 24 Alkaline Phosphatase (< 127 U/L) 70 Total Protein (6.3 - 8.2 g/dL) 7.3 Albumin (3.5 - 5.0 g/dL) 4.3 Amylase (30 - 110 U/L) 155 H Lipase (23 - 300 U/L) 443 H Hematology CBC w Diff NO MAN DIFF REQ WBC (4.8 - 10.8 /CUMM) 4.8 RBC (4.70 - 6.10 /CUMM) 3.78 L Hgb (14.0 - 18.0 G/DL) 11.2 L Hct (42 - 52 %) 33.1 L MCV (80.0 - 94.0 FL) 87.7 MCH (27.0 - 31.0 PG) 29.6 RDW (11.5 - 14.5 %) 13.7 Plt Count (130 - 400 /CUMM) 169 MPV (7.4 - 10.4 FL) 8.0 Gran % (42.2 - 75.2 %) 72.6 Lymphocytes % (20.5 - 51.1 %) 10.5 L Monocytes % (1.7 - 9.3 %) 10.6 H Eosinophils % (0 - 5 %) 6.0 H Basophils % (0.0 - 2.0 %) 0.3 Absolute Granulocytes (1.4 - 6.5 /CUMM) 3.5 Absolute Lymphocytes (1.2 - 3.4 /CUMM) 0.5 L Absolute Monocytes (0.10 - 0.60 /CUMM) 0.5 Absolute Eosinophils (0.0 - 0.7 /CUMM) 0.3 Absolute Basophils (0.0 - 0.2 /CUMM) 0 PUBS MCHC (33.0 - 37.0 G/DL) 33.8 Imaging/Other Studies: EXAM TYPE: US - US-RENAL/KIDNEY EXAMINATION: US RETROPERITONEAL COMPLETE (RENAL) CLINICAL INFORMATION: 86-year-old male with acute kidney injury. Suspected obstruction. COMPARISON: CT of the abdomen and pelvis done on 10/20/2015. TECHNIQUE: Real-time imaging of the kidneys and bladder. FINDINGS: RIGHT KIDNEY: 10.6 x 4.3 x 4.9 cm (SAG x AP x TRV). Marked diffuse cortical thinning is noted throughout the entire right kidney without evidence of any hydronephrosis. There are 3 cortical renal cysts identified, the largest seen at the inferior pole, measures 3.6 x 2.0 x 2.8 cm. The second smaller cortical cyst is noted at the mid pole, measures 2.1 x 1.9 x 2.0 cm. The superior polar cyst measures 1.8 x 1.6 x 1.8 cm. LEFT KIDNEY: 11.1 x 6.0 x 6.3 cm (SAG x AP x TRV). Moderate diffuse cortical thinning is present with no evidence of any hydronephrosis. Superimposed multiple cystic abnormalities are present, one at the upper pole measures 2.0 x 1.8 x 2.5 cm, while the cystic abnormality seen at the mid pole measures 2.5 x 2.0 x 2.1 cm. BLADDER: Bladder is decompressed. There is a Mims catheter present. IMPRESSION: 1. Bilateral normal size kidneys with evidence of marked diffuse cortical thinning on the right and moderate diffuse cortical thinning on the left with superimposed multiple cystic abnormalities, as described above. 2. No sonographic evidence of hydronephrosis on either side. EXAM TYPE: RAD - XRY-PORTABLE CHEST XRAY EXAMINATION: XR PORTABLE CHEST CLINICAL INFORMATION: Confusion and weakness. Increased creatinine level. COMPARISON: 05/19/2016 TECHNIQUE: Portable AP view of the chest was obtained. FINDINGS: Left diaphragm is chronically elevated and platelike atelectasis is present within the lingula. No acute pulmonary edema, focal consolidation or pleural effusion. Cardiac silhouette is mildly enlarged, status post CABG. Thoracic aorta is calcified. No acute skeletal findings. IMPRESSION: 1. No acute cardiopulmonary abnormality compared to 05/19/2016. 2. Mild cardiomegaly without congestive heart failure. 3. Chronically elevated left diaphragm with platelike atelectasis in the lingula.
--- NOTE | 2016-09-01 14:52 | Patient Discharge Instructions ---
Discharge Instructions General Discharge Information You were seen/treated for: Acute on chronic kidney disease. Special Instructions: Please follow-up with your PCP within 1 week of discharge. Please follow-up with your casino attendant Dr. Zack Cross within 1 week of discharge. Diet Recommended Diet: Heart Healthy Activity Full Activity/No Limits: Yes (as tolerated) Acute Coronary Syndrome Inclusion Criteria At DC or during hospital stay patient has or had the following: ACS DIAGNOSIS No Discharge Core Measures Meds if any: Prescribed or Continued at Discharge Meds if any: NOT Prescribed or Continued at Discharge Congestive Heart Failure Inclusion Criteria At DC or during hospital stay patient has or had the following: CHF DIAGNOSIS No Discharge Core Measures Meds if any: Prescribed or Continued at Discharge Meds if any: NOT Prescribed or Continued at Discharge Cerebrovascular accident Inclusion Criteria At DC or during hospital stay patient has or had the following: CVA/TIA Diagnosis No Discharge Core Measures Meds if any: Prescribed or Continued at Discharge Meds if any: NOT Prescribed or Continued at Discharge Venous thromboembolism Inclusion Criteria VTE Diagnosis No VTE Type NONE VTE Confirmed by (Test) NONE Discharge Core Measures - Per Current guidelines, there needs to be overlap - treatment for the first 5 days of Warfarin therapy. - If discharged on Warfarin prior to 5 days of - overlap therapy, the patient will need to be - assessed for post discharge needs including - *Post discharge parental anticoagulation - *Warfarin and/or parental anticoagulation education - *Follow up date to check INR post discharge At least 5 days overlap therapy as Inpatient No Meds if any: Prescribed or Continued at Discharge Note: Overlap Therapy is Warfarin and Anticoagulant Meds if any: NOT Prescribed or Continued at Discharge
--- NOTE | 2016-09-01 15:09 | Discharge Summary ---
See Addendum Visit Information Visit Dates Admission Date: 08/29/16 Discharge Date: 09/02/2016 Hospital Course Course Attending Physician: ALAN MCLEAN MD Primary Care Physician: TAI OSMAN APRN Hospital Course: Patient is a 86 y/o M with PMH HTN, HLD, CAD S/P CABG, hypothyroidism, CK D, anemia, GI bleed, history of colon cancer S/P resection, HFpEF, chronic pain on pain stimulator, ROBYN not on CPAP, on nighttime oxygen was admitted for worsening creatinine levels in his recent blood work. He was also being treated for balance issues and hallucinations by his PCP. Problem list: 1.Acute on chronic CKD 4/5: Patient's creatinine on admission was 5.4. Patient' s recent blood work at his side laster's office in June 2016 had a creatinine level of 2.5. It was unclear what had resulted in an acute decline in his kidney function in the last 2 months. Nephrology was consulted who felt it could be an ATN with unclear etiology. Patient received one bag of fluids. He was euvolemic upon examination. BEP was monitored and Lasix was held at admission. He hallucination, balance problems were presumed to be secondary to prerenal azotemia however they improved during the hospital stay. Urinalysis was bland and there were no signs of obstruction. Patient was maintained on a Mims catheter. There was no indication for dialysis at this admission and this was discussed with his side laster Dr. Tanesha Cross. Creatinine did not improve much and patient was given voiding trial before discharge. It was presumed that this creatinine level was his new baseline. Patient was instructed continue holding the diuretics and follow up with his side laster upon discharge. 2. Aspiration pneumonia? Patient desaturated to less than 80% during hospitalization and was found to have a streaky left basilar infiltrate questionable aspiration. He was started on Unasyn IV and cultures were ordered. Patient passed swallow evaluation and was continued on a heart healthy diet. He was discharged home on 7 days of Augmentin. Culture results were pending at the time of discharge. 3. Hypertension: Stable during hospital stay. Patient was maintained on labetalol, hydralazine and amlodipine. 4. Postherpetic neuralgia: Patient was on Lyrica for pain control. 5. Hallucinations: Hallucinations improved during hospital stay. He worked with physical therapy for balance and gait problems. 6. 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 Renal cysts on CT. Normal-size kidneys. Creatinine did not improve much during hospitalization. This was presumed to be patient's new baseline and the plan was to follow up with his side laster upon discharge and discussion about dialysis in future. Diet - Heart healthy Diet DVT prophylaxis-ALP S/heparin Code Status -Full Code Complications: Patient desaturated to less than 80% on 09/02/2016 and was started on 2 L nasal cannula. Chest x-ray streaky questionable infiltrate in the left base. He was started on Unasyn for aspiration pneumonia. White count remained normal and he was afebrile. Allergies: Coded Allergies: NO KNOWN ALLERGIES (09/28/15) Disposition Summary Disposition Principal Diagnosis: Acute on chronic kidney Additional Diagnosis: Hypertension Discharge Disposition: home health services Discharge Instructions General Discharge Information Code Status: Full Code Patient's Diet: Heart healthy Patient's Activity: As tolerated Follow-Up Instructions/Appts: 1. Please follow-up with your PCP within 1 week of discharge. 2. Please follow-up with your side laster Dr. Tanesha Cross within 1 week of discharge. Medications at Discharge Discharge Medications: Stop taking the following medications: Furosemide (Furosemide) 20 MG TABLET ORAL DAILY Days = 30 Furosemide (Lasix) 20 MG TABLET ORAL Every Morning Continue taking these medications: Omeprazole (Omeprazole) 20 MG CAPSULE. 40 Milligram ORAL TWICE DAILY Qty = 60 Comments: Last Taken: 09/20 Time: 0600AM Epoetin Earnest (Procrit) 20,000 UNIT/1 ML VIAL 30,000 Units Inject into fatty tissue ONCE A WEEK Days = 30 Ezetimibe (Zetia) 10 MG TABLET 1 Tablet ORAL DAILY Comments: LAST TAKEN 09/20 AT 10AM Atorvastatin Calcium (Atorvastatin Calcium) 20 MG TABLET 1 Tablet ORAL DAILY Qty = 90 Comments: LAST TAKEN 09/20 10AM Hydralazine HCl (Hydralazine HCl) 100 MG TABLET 1 Tablet ORAL TWICE DAILY Qty = 60 Comments: TAKEN 09/20 AT 10AM Docusate Sodium (Colace) 100 MG CAPSULE 1 Capsule ORAL TWICE DAILY Comments: PER PT MED LIST Labetalol HCl (Labetalol HCl) 300 MG TABLET 1 Tablet ORAL TWICE DAILY Qty = 60 Comments: TAKEN 09/20 AT 10AM Ferrous Sulfate (IRON) (Unknown Strength) TABLET 2 Tablet ORAL TWICE DAILY Comments: PER PT MED LIST Sennosides (Senokot) 8.6 MG TABLET 1 Tablet ORAL DAILY Comments: PER PT MED LIST Amlodipine Besylate (Amlodipine Besylate) 10 MG TABLET 1 Tablet ORAL DAILY Comments: LAST TAKEN 09/20 AT 10AM Isosorbide Mononitrate (Isosorbide Mononitrate ER) 60 MG TAB.ER.24H 1 Tablet ORAL DAILY Comments: TAKEN 09/20 AT 10AM Levothyroxine Sodium (Levothyroxine Sodium) 50 MCG TABLET 1 Tablet ORAL DAILY Qty = 30 Comments: LAST TAKEN 09/20 AT 6AM Pregabalin (Lyrica) 75 MG CAPSULE 1 Capsule ORAL Every night Qty = 30 Comments: PER PT MED LIST Cholecalciferol (Vitamin D3) (Vitamin D) 1,000 UNIT TABLET 1 Tablet ORAL DAILY Comments: LAST TAKEN 09/20 AT 10AM [Toribio 10%/ Lido 5%/ A] 1 Application On the skin Every night Qty = 80 Comments: PER PT MED LABEL TORIBIO 10%/LIDO 5%/AMIT4%/MENTHOL 5% APPLY TOP TO AFFECTED AREA THREE TO FOUR TIMES A DAY Erythromycin Base (Erythromycin) 5 MG/GRAM (0.5 %) OINT...G. 1 Application In the eye TAKE AT BEDTIME Qty = 35 Instructions: apply 1 cm ribbon into the lower conjunctival sac Comments: PER PT MED LABEL Copies To: YENY NICK MD; TANESHA MUNGUIA MD; TAI OSMAN APRN; TANESHA CROSS MD Attending Review Statement Documenting Attending: YENY NICK MD Copies To: BENJAMIN NICK MD, MD, DAVID A; HELLER APRN, JUDITH A.; TANESHA CROSS MD, MD Review Statement Documenting Attending: YENY NICK MD
[2016-09-01 16:09] VITALS: BP 124/76
[2016-09-01 23:27] VITALS: BP 138/70
--- NOTE | 2016-09-02 08:05 | PN- Housestaff ---
[facility] [place] 09/02/16 0753: Subjective Follow-up For: Acute on chronic renal failure Shortness of breath Complaints: c/o shortness of breath, sputum production Subjective: Patient desaturated last night to below 88% and had to be put on 2 L nasal cannula. A chest x-ray has been ordered which is pending. He has been afebrile overnight. Has been producing thick phlegm. Chest examination revealed bilateral wheezing. Completely awake, alert and oriented. A swallow eval has been ordered as there is a question of aspiration leading to the sudden onset of shortness of breath. Eyes any chest pain, palpitations, nausea, vomiting. Review of Systems Constitutional: Reports: malaise, weakness. EENTM: Reports: no symptoms. Cardiovascular: Reports: no symptoms. Respiratory: Reports: short of breath. Gastrointestinal: Reports: no symptoms. Genitourinary: Reports: no symptoms. Musculoskeletal: Reports: no symptoms. Skin: Reports: no symptoms. Neurological/Psychological: Reports: no symptoms. Objective Last 24 Hrs of Vital Signs/I&O Vital Signs Date Time Temp Pulse Resp B/P Pulse O2 O2 Flow FiO2 Ox Delivery Rate 09/02 0000 Nasal 2.0L Cannula 09/01 2327 97.8 69 20 138/70 90 Room Air 09/01 2222 80 152/72 03 2221 80 152/72 09/01 1609 97.6 61 20 124/76 91 Room Air 09/01 1600 Nasal 3.0L Cannula 09/01 1219 84 142/58 09/01 1219 84 142/58 09/01 1218 84 142/58 09/01 1218 84 142/58 Intake & Output 09/02 0800 09/02 0000 09/01 1600 Intake Total 882 115 6865 Output Total 550 550 850 Balance -150 -70 165 Intake, Oral 377 649 7553 Number 0 Bowel Movements Output, Urine 550 550 850 Physical Exam General Appearance: Alert, Oriented X3, Cooperative, Mild Distress Skin: redness and hyperalgesia on the left side of the chest. HEENT: Atraumatic, PERRLA, EOMI, nasal cannula Neck: Supple, No JVD Lymphatic: Cervical nl Cardiovascular: Regular Rate, Normal S1, Normal S2 Lungs: bilateral wheezing Abdomen: Normal Bowel Sounds, Soft, No Tenderness Neurological: Normal Speech, Normal Tone Extremities: trace bilateral edema Vascular: Normal Pulses Current Medications: Current Medications Sig/Tiffanie Start time Last Medication Dose Route Stop Time Status Admin Acetaminophen 650 MG Q6P PRN 08/30 0015 AC PO Amlodipine Besylate 10 MG DAILY 08/30 1000 AC 09/01 PO 1219 Atorvastatin Calcium 20 MG DAILY 08/30 1000 AC 09/01 PO 1218 Cholecalciferol 1,000 IU DAILY 08/30 1000 AC 09/01 PO 1219 Docusate Sodium 100 MG BID 08/30 1000 AC 09/01 PO 2222 Erythromycin 1 ANI AT BEDTIME 08/30 2200 AC 09/01 OPH 2222 Ezetimibe 10 MG DAILY 08/30 1000 AC 09/01 PO 1218 Ferrous Sulfate 325 MG BID 08/30 1000 AC 09/01 PO 2222 Heparin Sodium 5,000 UNIT Q8 08/30 0600 AC 09/02 (Porcine) SC 0618 Hydralazine HCl 100 MG BID 08/30 1000 AC 09/01 PO 2222 Isosorbide 60 MG DAILY 08/30 1000 AC 09/01 Mononitrate PO 1218 Labetalol HCl 300 MG BID 08/30 1000 AC 09/01 PO 2221 Levothyroxine Sodium 0.05 MG DAILY AC 08/30 0700 AC 09/02 PO 0619 Omeprazole 40 MG 0700,1600 08/30 0700 AC 09/02 PO 0619 Patient Medication 1 ED .ST-MED ONE 09/01 1341 IN Teaching ED 09/01 1342 Patient Own 1 UNIT Q8P PRN 08/30 0115 AC 08/30 Medication TOP 1946 Polyethylene Glycol 17 GM DAILY 08/30 1000 AC 09/01 PO 1219 Pregabalin 75 MG QPM 08/30 2200 AC 09/01 PO 2222 Senna 187 MG DAILY 08/30 1000 AC 09/01 PO 1219 Last 24 Hrs of Lab/Jamel Results Last 24 Hrs of Labs/Mics: Laboratory Tests 09/02/16 0610: Anion Gap 10, Estimated GFR 10 L, BUN/Creatinine Ratio 14.9, CBC w Diff Pending , WBC Pending, RBC Pending, Hgb Pending, Hct Pending, MCV Pending, MCH Pending, RDW Pending, Plt Count Pending, MPV Pending, PUBS MCHC Pending 09/01/16 0850: Urinalysis LIGHT H, Urine Color YEL, Urine Clarity CLEAR, Urine pH 6.0, Ur Specific [place] 1.015, Urine Protein 30 H, Urine Ketones NEG, Urine Nitrite NEG, Urine Bilirubin NEG, Urine Urobilinogen 0.2, Ur Leukocyte Esterase NEG, Ur Microscopic SEDIMENT EXAMINED, Urine RBC 15-25 H, Urine WBC 1-3 H, Ur Epithelial Cells RARE, Urine Bacteria FEW H, Urine Hemoglobin SMALL H, Urine Glucose NEG Microbiology 09/03 747 URINE ROUT: Urine Culture - ORD 09/03 747 LOWER RESP: Respiratory Culture - ORD 09/03 747 LOWER RESP: Gram Stain - ORD 09/03 747 BLOOD: Blood Culture - ORD 09/03 747 BLOOD: Blood Culture - ORD Assessment/Plan Assessment: Patient is a 86 y/o M with PMH HTN, HLD, CAD S/P CABG, hypothyroidism, CK D, anemia, GI bleed, history of colon cancer S/P resection, HFpEF, chronic pain on pain stimulator, ROBYN not on CPAP, on nighttime oxygen was admitted for worsening creatinine levels in his recent blood work. He was also being treated for balance issues and hallucinations by his PCP. Assessment and plan: 1. Acute on chronic CKD 4/5: Creatinine 2.4 in June 2016. Acute worsening in the last 2 months. Patient has been on temporal dialysis in the past. * Creatinine continues to be the same 5.3. This seems to be the patient's new baseline. * Repeat UA showed some proteinuria and hematuria * Mims catheter removed. Successful voiding trial with adequate urine output in the last 24 hours. * IV fluids have been stopped. * Holding Lasix for now * Avoid nephrotoxic medications * Nephrology on board, decision regarding dialysis pending creatinine values 2. Sudden onset of shortness of breath? Aspiration. Afebrile. * Patient desaturated overnight to less than 88% and was put on 2 L nasal cannula * Chest examination is significant for bilateral wheezing * Has been complaining of cough with thick phlegm * Blood and sputum cultures have been sent * Stat chest x-ray pending * [facility] nebs [id number] * Swallow evaluation ordered 3. Hypertension: Stable * Continue labetalol, hydralazine and amlodipine * Holding Lasix for kidney injury * Continue all other home meds 4. Postherpetic neuralgia * Patient on Lyrica for pain control 5. Hallucinations: Resolved * Working with PT for balance problems 6. 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 Renal cysts on CT. Normal-size kidneys. * Creatinine 2.4 in June 2016 * Was on temporary dialysis before * Cheese Cook is Dr. Zack Cross([phone]) Diet - Heart healthy Diet DVT prophylaxis-ALP S/heparin Code Status -Full Code Problem List: 1. Shingles 2. Acute on chronic renal failure 3. Acute hypoxemic respiratory failure Pain Ratin Pain Location: chest Pain Goal: Pain 4 or less Pain Plan: Lyrica Tylenol Tomorrow's Labs & Rationales: bep , cbc SANDOVAL BAIN,YENY 09/02/16 1147: Attending MD Review Statement Attending Statement Attending MD Statement: examined this patient, discuss w/resident/PA/SLEEP LAB TECHNICIAN, agreed w/resident/PA/SLEEP LAB TECHNICIAN, reviewed EMR data (avail) Attending Assessment/Plan: Overnight desaturated to 82%. Patient wears PRN 2L NC at home. Lungs sound wheezy bilaterally. CXR shows streaky infiltrate, but do not suspect pneumonia at this time. More likely etiology is aspiration. Patient is comfortable now and saturating 97% on 2L NC. Metabolic encephalopathy seen on admission has since resolved and is likely due to medications such as Lyrica. Plan - May restart home diuretics - Start Unasyn - Continue to monitor urine output - Repeat BEP tomorrow - Follow nephrology recommendations - Continue home medications - Avoid nephrotoxic medications - No further IV fluids - DVT PPx - Anticipated discharge tomorrow. Please send CMR to pharmacy for review. - Can likely be discharged tomorrow if doing well, will continue Augmentin for 7 days and patient will follow up with nephrology as outpatient. - Outpatient modified barium swallow. Seen by speech therapy, instructions given.
[2016-09-02 08:08] VITALS: BP 160/90
[2016-09-02 08:17] LABS: ABSOLUTE BASOPHIL COUNT 0 /CUMM (0.0-0.2); ABSOLUTE EOSINOPHIL COUNT 0.3 /CUMM (0.0-0.7); ABSOLUTE GRANULOCYTE CT 3.2 /CUMM (1.4-6.5); ABSOLUTE LYMPH COUNT 0.6 /CUMM (1.2-3.4); ABSOLUTE MONOCYTE COUNT 0.4 /CUMM (0.10-0.60); BASOPHIL % 0.5 % (0.0-2.0); EOSINOPHIL % 6.2 % (0-5); HEMATOCRIT 27.6 % (42-52); MEAN CORPUSCULAR HGB 29.9 PG (27.0-31.0); MEAN CORPUSCULAR HGB CONC 34.1 G/DL (33.0-37.0); MEAN CORPUSCULAR VOLUME 87.8 FL (80.0-94.0); MEAN PLATELET VOLUME 8.6 FL (7.4-10.4); PLATELET COUNT 128 /CUMM (130-400); RBC DISTRIBUTION WIDTH 13.5 % (11.5-14.5); RED BLOOD CELL CT 3.15 /CUMM (4.70-6.10); WHITE BLOOD CELL COUNT 4.4 /CUMM (4.8-10.8)
--- NOTE | 2016-09-02 08:18 | RADIOLOGY REPORT ---
EXAMINATION: XR PORTABLE CHEST CLINICAL INFORMATION: Evaluate for pulmonary pathology COMPARISON: Multiple chest x-rays most recent prior dated 08/30/2016 TECHNIQUE: Portable AP view of the chest was obtained. FINDINGS: Status post median sternotomy and CABG. Stable cardiomegaly. Mild central pulmonary vascular congestion. Stable low left lung volume with moderate elevation of the left hemidiaphragm. Increasing streaky opacity noted in the left base. Mild blunting of the left costophrenic sulcus may represent trace fluid or pleural thickening. Streaky atelectasis right base.. IMPRESSION: 1. Streaky atelectasis or infiltrate left base. 2. Persistent elevation of the left hemidiaphragm. 3. Minor subsegmental atelectasis right base.
[2016-09-02] MEDS ORDERED: AUGMENTIN 500-1 EACH PO (15:16)
--- NOTE | 2016-09-02 15:47 | PN- Nephrology ---
Assessment/Plan Assessment: GURPREET -the patient had a baseline creatinine of 2.4 in June of this year. The cause for the increase to 5.4 is not clear. He remains elevated at 5.3 today, even with cessation of diuretics and administration of intravenous fluid (which have now been stopped). There is no evidence of urinary obstruction and he currently has a Mims catheter in place. His urine sediment is bland. A would suspect ATN as opposed to prerenal azotemia as it did not resolve with the above measures. He has no clear indication for dialysis right now. There is also the possibility that this is just progression of his underlying kidney disease ( although such a drastic rise seems less likely). At this point, there is not a clear need for him to remain in the hospital just for his abnormal kidney function. It would be reasonable for him to get repeat labs next week and f/u with his outpatient Digestion Operator. Given his diastolic CHF, I think that restarting his oral diuretics would be reasonable. Hypernatremia - Improved. Volume status - he seems relatively euvolemic on exam - I think holding diuretics today would be OK. Hallucinations -resolved. As a result, not related to uremia. May have been from medications such as Lyrica building up. If his renal function does not improve significantly, the dose of this may need to be adjusted. 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 I suspect that the renal cysts are acquired rather than the underlying cause of his CKD as his kidneys are normal in size and he is 86 years old. Suggestion: -Would restart home dose oral diuretics -Would have patient get repeat labs next week and f/u with Dr. Cross (Nephrology ) -No need for dialysis at this time Will continue to follow. Please call [phone] with ?'s Subjective Subjective: SCr stable at 5.3 No uremic symptoms Mims catheter out - no urinary issues ?aspiration Objective Vital Signs and I&Os Vital Signs Date Time Temp Pulse Resp B/P Pulse O2 O2 Flow FiO2 Ox Delivery Rate 09/02 1119 160/90 09/02 1119 160/90 09/02 1118 160/90 09/02 1118 160/90 09/02 0921 Nasal 2.0L Cannula 09/02 0808 97.1 76 20 160/90 94 Nasal 2.0L Cannula 09/02 0800 95 Nasal 2.0L Cannula 09/02 0000 Nasal 2.0L Cannula 09/01 2327 97.8 69 20 138/70 90 Room Air 09/01 2222 80 152/72 09/01 2221 80 152/72 09/01 1609 97.6 61 20 124/76 91 Room Air 09/01 1600 Nasal 3.0L Cannula Intake & Output 09/02 1600 09/02 0400 09/01 1600 09/01 0400 08/31 1600 08/31 0400 Intake Total 802 887 4973 100 700 600 Output Total 350 823 7565 200 950 375 Balance 80 -70 -685 -100 -250 225 Intake, IV 100 Intake, Oral 110 112 3932 100 700 600 Number 0 1 0 Bowel Movements Output, Urine 403 992 6377 200 950 375 Patient 240 lb Weight Physical Exam: Gen - NAD HEENT - supple, JVP not clearly up CV - RRR Chest - clear Abd - soft, nontender Ext - no significant edema Neuro - alert, oriented, conversive Current Medications: Current Medications Sig/Tiffanie Start time Last Medication Dose Route Stop Time Status Admin Acetaminophen 650 MG Q6P PRN 08/30 0015 AC PO Amlodipine Besylate 10 MG DAILY 08/30 1000 AC 09/02 PO 1119 Ampicillin Sodium/ 1,500 MG 0900 09/03 0900 AC Sulbactam Sodium IV Sodium Chloride 100 ML Ampicillin Sodium/ 1,500 MG Q24H 09/02 1300 DC 09/02 Sulbactam Sodium IV 1353 Sodium Chloride 100 ML Atorvastatin Calcium 20 MG DAILY 08/30 1000 AC 09/02 PO 1119 Cholecalciferol 1,000 IU DAILY 08/30 1000 AC 09/02 PO 1119 Docusate Sodium 100 MG BID 08/30 1000 AC 09/02 PO 1118 Erythromycin 1 ANI AT BEDTIME 08/30 2200 AC 09/01 OPH 2222 Ezetimibe 10 MG DAILY 08/30 1000 AC 09/02 PO 1119 Ferrous Sulfate 325 MG BID 08/30 1000 AC 09/02 PO 1118 Heparin Sodium 5,000 UNIT Q8 08/30 0600 AC 09/02 (Porcine) SC 1353 Hydralazine HCl 100 MG BID 08/30 1000 AC 09/02 PO 1118 Isosorbide 60 MG DAILY 08/30 1000 AC 09/02 Mononitrate PO 1118 Labetalol HCl 300 MG BID 08/30 1000 AC 09/02 PO 1119 Levothyroxine Sodium 0.05 MG DAILY AC 08/30 0700 AC 09/02 PO 0619 Omeprazole 40 MG 0700,1600 08/30 0700 AC 09/02 PO 0619 Patient Own 1 UNIT Q8P PRN 08/30 0115 AC 08/30 Medication TOP 194 Polyethylene Glycol 17 GM DAILY 08/30 1000 AC 09/02 PO 1119 Pregabalin 75 MG QPM 08/30 2200 AC 09/01 PO 2222 Senna 187 MG DAILY 08/30 1000 AC 09/02 PO 1119 Results Pertinent Lab Results: Laboratory Tests 09/02 09/01 0610 0850 Chemistry Sodium (137 - 145 mmol/L) 139 Potassium (3.5 - 5.1 mmol/L) 4.5 Chloride (98 - 107 mmol/L) 101 Carbon Dioxide (22 - 30 mmol/L) 28 Anion Gap (5 - 16) 10 BUN (9 - 20 mg/dL) 79 H Creatinine (0.7 - 1.2 mg/dL) 5.3 *H Estimated GFR (>60 ml/min) 10 L BUN/Creatinine Ratio (7 - 25 %) 14.9 Hematology CBC w Diff NO MAN DIFF REQ WBC (4.8 - 10.8 /CUMM) 4.4 L RBC (4.70 - 6.10 /CUMM) 3.15 L Hgb (14.0 - 18.0 G/DL) 9.4 L Hct (42 - 52 %) 27.6 L MCV (80.0 - 94.0 FL) 87.8 MCH (27.0 - 31.0 PG) 29.9 RDW (11.5 - 14.5 %) 13.5 Plt Count (130 - 400 /CUMM) 128 L MPV (7.4 - 10.4 FL) 8.6 Gran % (42.2 - 75.2 %) 72.0 Lymphocytes % (20.5 - 51.1 %) 13.4 L Monocytes % (1.7 - 9.3 %) 7.9 Eosinophils % (0 - 5 %) 6.2 H Basophils % (0.0 - 2.0 %) 0.5 Absolute Granulocytes (1.4 - 6.5 /CUMM) 3.2 Absolute Lymphocytes (1.2 - 3.4 /CUMM) 0.6 L Absolute Monocytes (0.10 - 0.60 /CUMM) 0.4 Absolute Eosinophils (0.0 - 0.7 /CUMM) 0.3 Absolute Basophils (0.0 - 0.2 /CUMM) 0 PUBS MCHC (33.0 - 37.0 G/DL) 34.1 Urines Urinalysis LIGHT H Urine Color (YEL,AMB,STR) YEL Urine Clarity (CLEAR) CLEAR Urine pH (5.0 - 8.0) 6.0 Ur Specific [place] (1.001 - 1.035) 1.015 Urine Protein (NEG,<30 MG/DL) 30 H Urine Ketones (NEG) NEG Urine Nitrite (NEG) NEG Urine Bilirubin (NEG) NEG Urine Urobilinogen (0.1 - 1.0 EU/dl) 0.2 Ur Leukocyte Esterase (NEG) NEG Ur Microscopic SEDIMENT EXAMINED Urine RBC (0 - 5 /HPF) 15-25 H Urine WBC (0 - 2 /HPF) 1-3 H Ur Epithelial Cells (NONE,FEW) RARE Urine Bacteria (NEG/NONE) FEW H Urine Hemoglobin (NEG) SMALL H Urine Glucose (N MG/DL) NEG 09/01 08/31 08/30 0610 0630 1930 Chemistry Sodium (137 - 145 mmol/L) 140 141 Potassium (3.5 - 5.1 mmol/L) 4.1 3.9 Chloride (98 - 107 mmol/L) 104 102 Carbon Dioxide (22 - 30 mmol/L) 27 29 Anion Gap (5 - 16) 9 11 BUN (9 - 20 mg/dL) 83 H 84 H Creatinine (0.7 - 1.2 mg/dL) 5.3 *H 5.3 *H Estimated GFR (>60 ml/min) 10 L 10 L BUN/Creatinine Ratio (7 - 25 %) 15.7 15.8 Creatine Kinase (55 - 170 U/L) 316 H 296 H Urines Urine Osmolality (300 - 1000 MOSM/KG) 481 Ur Random Creatinine (mg/dL) 112.5 Ur Random Sodium (30 - 90 mmol/L) 26 L Ur Random Potassium (mmol/L) 35.5 Fraction Sodium Excret (<1% %) 0.8 Imaging/Other Studies: EXAM TYPE: RAD - XRY-PORTABLE CHEST XRAY EXAMINATION: XR PORTABLE CHEST CLINICAL INFORMATION: Evaluate for pulmonary pathology COMPARISON: Multiple chest x-rays most recent prior dated 08/30/2016 TECHNIQUE: Portable AP view of the chest was obtained. FINDINGS: Status post median sternotomy and CABG. Stable cardiomegaly. Mild central pulmonary vascular congestion. Stable low left lung volume with moderate elevation of the left hemidiaphragm. Increasing streaky opacity noted in the left base. Mild blunting of the left costophrenic sulcus may represent trace fluid or pleural thickening. Streaky atelectasis right base.. IMPRESSION: 1. Streaky atelectasis or infiltrate left base. 2. Persistent elevation of the left hemidiaphragm. 3. Minor subsegmental atelectasis right base. EXAM TYPE: US - US-RENAL/KIDNEY EXAMINATION: US RETROPERITONEAL COMPLETE (RENAL) CLINICAL INFORMATION: 86-year-old male with acute kidney injury. Suspected obstruction. COMPARISON: CT of the abdomen and pelvis done on 10/20/2015. TECHNIQUE: Real-time imaging of the kidneys and bladder. FINDINGS: RIGHT KIDNEY: 10.6 x 4.3 x 4.9 cm (SAG x AP x TRV). Marked diffuse cortical thinning is noted throughout the entire right kidney without evidence of any hydronephrosis. There are 3 cortical renal cysts identified, the largest seen at the inferior pole, measures 3.6 x 2.0 x 2.8 cm. The second smaller cortical cyst is noted at the mid pole, measures 2.1 x 1.9 x 2.0 cm. The superior polar cyst measures 1.8 x 1.6 x 1.8 cm. LEFT KIDNEY: 11.1 x 6.0 x 6.3 cm (SAG x AP x TRV). Moderate diffuse cortical thinning is present with no evidence of any hydronephrosis. Superimposed multiple cystic abnormalities are present, one at the upper pole measures 2.0 x 1.8 x 2.5 cm, while the cystic abnormality seen at the mid pole measures 2.5 x 2.0 x 2.1 cm. BLADDER: Bladder is decompressed. There is a Mims catheter present. IMPRESSION: 1. Bilateral normal size kidneys with evidence of marked diffuse cortical thinning on the right and moderate diffuse cortical thinning on the left with superimposed multiple cystic abnormalities, as described above. 2. No sonographic evidence of hydronephrosis on either side.
[2016-09-02 16:17] VITALS: BP 150/70
[2016-09-02 23:00] VITALS: BP 140/58
[2016-09-03 07:39] VITALS: BP 154/82
--- NOTE | 2016-09-03 08:12 | PN- Housestaff ---
See Addendum Subjective Follow-up For: Aspiration PNA Subjective: Pt seen this morning, he was comfortably lying in bed. Reports no fever or chills. Still has cough productive of thick yellow green sputum. He reports wheezing. He feels OK to go home. Noted increase in bun/cr from 79/5.3 --> 86/5.9. noted h/h drop from 10.5/31 --> 9.4/27.6 pt and family refuses home health services. Pt desat to 85% on 2L on ambulation today, PT thinks pt needs rehab. also his is concern why his creatinine is rising. his is concerned that the unasyn that was started is what increased his cr. we will discontinue the unasyn. and watch off abx. Review of Systems Constitutional: Denies: chills, fever. EENTM: Denies: visual changes. Cardiovascular: Denies: chest pain. Respiratory: Reports: cough, sputum production. Gastrointestinal: Denies: abdominal pain. Objective Last 24 Hrs of Vital Signs/I&O Vital Signs Date Time Temp Pulse Resp B/P Pulse O2 O2 Flow FiO2 Ox Delivery Rate 09/03 0936 154/78 / 0935 154/78 09/03 0935 154/78 09/03 0935 154/78 09/03 0822 94 Nasal 2.0L Cannula 09/03 0739 97.7 66 20 154/82 92 Nasal 2.0L Cannula 09/03 0000 96 Nasal 2.0L Cannula 09/02 2300 98.3 61 20 140/58 96 Nasal 2.0L Cannula 09/02 2115 71 140/58 09/02 2114 71 140/58 09/02 1617 97.7 59 20 150/70 96 09/02 1600 Nasal 2.0L Cannula 09/02 1119 160/90 09/02 1119 160/90 09/02 1118 160/90 09/02 1118 160/90 Intake & Output 09/03 1600 / 0800 / 0000 Intake Total 120 400 Output Total 600 Balance -480 400 Intake, Oral 120 400 Output, Urine 600 Physical Exam General Appearance: Alert, Oriented X3, Cooperative Skin: No Significant Lesion HEENT: Atraumatic Cardiovascular: Normal S1, Normal S2, systolic murmur Lungs: diffuse exp wheezing Abdomen: Normal Bowel Sounds, Soft, No Tenderness Neurological: Normal Speech Current Medications: Current Medications Sig/Tiffanie Start time Last Medication Dose Route Stop Time Status Admin Acetaminophen 650 MG Q6P PRN 08/30 0015 AC PO Amlodipine Besylate 10 MG DAILY 08/30 1000 AC 09/03 PO 0935 Ampicillin Sodium/ 1,500 MG 0900 09/03 0900 AC 09/03 Sulbactam Sodium IV 0934 Sodium Chloride 100 ML Ampicillin Sodium/ 1,500 MG Q24H 09/02 1300 DC 09/02 Sulbactam Sodium IV 1353 Sodium Chloride 100 ML Atorvastatin Calcium 20 MG DAILY 08/30 1000 AC 09/03 PO 0935 Cholecalciferol 1,000 IU DAILY 08/30 1000 AC 09/03 PO 0936 Docusate Sodium 100 MG BID 08/30 1000 AC 09/03 PO 0935 Erythromycin 1 ANI AT BEDTIME 08/30 2200 AC 09/02 OPH 2115 Ezetimibe 10 MG DAILY 08/30 1000 AC 09/03 PO 0936 Ferrous Sulfate 325 MG BID 08/30 1000 AC 09/03 PO 0935 Heparin Sodium 5,000 UNIT Q8 08/30 0600 AC 09/03 (Porcine) SC 0644 Hydralazine HCl 100 MG BID 08/30 1000 AC 09/03 PO 0935 Isosorbide 60 MG DAILY 08/30 1000 AC 09/03 Mononitrate PO 0935 Labetalol HCl 300 MG BID 08/30 1000 AC 09/03 PO 0936 Levothyroxine Sodium 0.05 MG DAILY AC 08/30 0700 AC 09/03 PO 0644 Omeprazole 40 MG 0700,1600 08/30 0700 AC 09/03 PO 0644 Patient Own 1 UNIT Q8P PRN 08/30 0115 AC 08/30 Medication TOP 1946 Polyethylene Glycol 17 GM DAILY 08/30 1000 AC 09/03 PO 0937 Pregabalin 75 MG QPM 08/30 2200 AC 09/02 PO 2116 Senna 187 MG DAILY 08/30 1000 AC 09/03 PO 0935 Last 24 Hrs of Lab/Jamel Results Last 24 Hrs of Labs/Mics: Laboratory Tests 09/03/16 0615: Anion Gap 12, Estimated GFR 9 L, BUN/Creatinine Ratio 14.6 Microbiology 09/02 1205 BLOOD: Blood Culture - RECD 09/02 1140 BLOOD: Blood Culture - RECD Assessment/Plan Assessment: Patient is a 86 y/o M with PMH HTN, HLD, CAD S/P CABG, hypothyroidism, CK D, anemia, GI bleed, history of colon cancer S/P resection, HFpEF, chronic pain on pain stimulator, ROBYN not on CPAP, on nighttime oxygen was admitted for worsening creatinine levels in his recent blood work. He was also being treated for balance issues and hallucinations by his PCP. Assessment and plan: 1. Acute on chronic CKD 4/5: Creatinine 2.4 in June 2016. Acute worsening in the last 2 months. Patient has been on temporal dialysis in the past. * Creatinine increases from 5.3 to 5.9 * Repeat UA showed some proteinuria and hematuria * Mims catheter removed. Successful voiding trial with adequate urine output in the last 24 hours. * IV fluids have been stopped. * Holding Lasix for now * Avoid nephrotoxic medications * Nephrology on board, decision regarding dialysis pending creatinine values 2. Sudden onset of shortness of breath? Aspiration. Afebrile. * Patient desaturated overnight to less than 88% and was put on 2 L nasal cannula * Chest examination is significant for bilateral wheezing * Has been complaining of cough with thick phlegm * Blood and sputum cultures have been sent * [facility] nebs [id number] * Swallow evaluation ordered * IV unasyn started but cr increased, iv unasyn stopped after 1 day, will watch off abx 3. Hypertension: Stable * Continue labetalol, hydralazine and amlodipine * Holding Lasix for kidney injury * Continue all other home meds 4. Postherpetic neuralgia * Patient on Lyrica for pain control 5. Hallucinations: Resolved * Working with PT for balance problems 6. 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 Renal cysts on CT. Normal-size kidneys. * Creatinine 2.4 in June 2016 * Was on temporary dialysis before * Planting Machine Operator is Dr. Zack Cross ([phone]) Diet - Heart healthy Diet DVT prophylaxis-ALP S/heparin Code Status -Full Code Problem List: 1. Acute on chronic renal failure 2. Shingles (herpes zoster) polyneuropathy 3. Acute hypoxemic respiratory failure 4. Aspiration pneumonia Pain Ratin Pain Location: none Pain Goal: Remain pain free Pain Plan: none Tomorrow's Labs & Rationales: bep for worsening bun/cr and increasing k cbc for dropping h/h DVT/Prophylaxis: mechanical, pharmacological
[2016-09-03 16:05] VITALS: BP 160/80
--- NOTE | 2016-09-03 17:21 | PN- Nephrology ---
Assessment/Plan Assessment: GURPREET - I am not sure why his creatinine increased to 5.9 in the last day. Unasyn should not cause GURPREET. The one thing to rule out would be urinary obstruction. I asked the patient's RN to get a bladder scan for PVR. I am somewhat hesitant to restart his diuretics while his creatinine is increasing. If it improves, there shouldn't be a reason from a Nephrology standpoint why he wouldn't be able to go home and f/u with his outpatient Nephrolgoist. Hallucinations -resolved. Likely Lyrica building up in the setting of GURPREET. 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 I suspect that the renal cysts are acquired rather than the underlying cause of his CKD as his kidneys are normal in size and he is 86 years old. Suggestion: -OK to hold diuretics today -Hold unasyn -bladder scan for PVR -If SCr stable/decreasing with no uremic symptoms, would have patient get repeat labs next week and f/u with Dr. Cross (Nephrology) -No need for dialysis at this time Will continue to follow. Please call [phone] with ?'s Subjective Subjective: SCr up to 5.9 Started on unasyn yesterday Mims out Pt remains asymptomatic Objective Vital Signs and I&Os Vital Signs Date Time Temp Pulse Resp B/P Pulse O2 O2 Flow FiO2 Ox Delivery Rate 09/03 1605 98.4 63 20 160/80 95 /04 1600 Nasal 2.0L Cannula 09/03 0936 154/78 / 0935 154/78 / 0935 154/78 / 0935 154/78 / 0822 94 Nasal 2.0L Cannula 09/03 0739 97.7 66 20 154/82 92 Nasal 2.0L Cannula / 0000 96 Nasal 2.0L Cannula 09/02 2300 98.3 61 20 140/58 96 Nasal 2.0L Cannula 09/02 2115 71 140/58 09/02 211 71 140/58 Intake & Output 03/04 1600 03/04 0400 / 1600 09/02 0400 09/01 1600 / 0400 Intake Total 520 400 607 426 7391 100 Output Total 1250 070 005 1667 200 Balance -730 400 80 -70 -685 -100 Intake, IV 100 Intake, Oral 520 400 336 096 6907 100 Number 0 Bowel Movements Output, Urine 1250 582 149 9294 200 Patient 240 lb Weight Physical Exam: Gen - NAD HEENT - supple CV - RRR Chest - decreased breath sounds L base Abd - soft, nontender Ext - trace edema Neuro - alert, oriented, conversive Current Medications: Current Medications Sig/Tiffanie Start time Last Medication Dose Route Stop Time Status Admin Acetaminophen 650 MG Q6P PRN 08/30 0015 AC PO Amlodipine Besylate 10 MG DAILY 08/30 1000 AC 09/03 PO 0935 Ampicillin Sodium/ 1,500 MG 09/03 0900 DC 09/03 Sulbactam Sodium IV 0934 Sodium Chloride 100 ML Atorvastatin Calcium 20 MG DAILY 08/30 1000 AC 09/03 PO 0935 Cholecalciferol 1,000 IU DAILY 08/30 1000 AC 09/03 PO 0936 Docusate Sodium 100 MG BID 08/30 1000 AC 09/03 PO 0935 Erythromycin 1 ANI AT BEDTIME 08/30 2200 AC 09/02 OPH 2115 Ezetimibe 10 MG DAILY 08/30 1000 AC 09/03 PO 0936 Ferrous Sulfate 325 MG BID 08/30 1000 AC 09/03 PO 0935 Heparin Sodium 5,000 UNIT Q8 08/30 0600 AC 09/03 (Porcine) SC 1515 Hydralazine HCl 100 MG BID 08/30 1000 AC 09/03 PO 0935 Isosorbide 60 MG DAILY 08/30 1000 AC 09/03 Mononitrate PO 0935 Labetalol HCl 300 MG BID 08/30 1000 AC 09/03 PO 0936 Levothyroxine Sodium 0.05 MG DAILY AC 08/30 0700 AC 09/03 PO 0644 Omeprazole 40 MG 0700,1600 08/30 0700 AC 09/03 PO 1613 Patient Own 1 UNIT Q8P PRN 08/30 0115 AC 08/30 Medication TOP 1946 Polyethylene Glycol 17 GM DAILY 08/30 1000 AC 09/03 PO 0937 Pregabalin 75 MG QPM 08/30 2200 AC 09/02 PO 2116 Senna 187 MG DAILY 08/30 1000 AC 09/03 PO 0935 Results Pertinent Lab Results: Laboratory Tests 09/03 09/02 0615 0610 Chemistry Sodium (137 - 145 mmol/L) 139 139 Potassium (3.5 - 5.1 mmol/L) 5.0 4.5 Chloride (98 - 107 mmol/L) 100 101 Carbon Dioxide (22 - 30 mmol/L) 27 28 Anion Gap (5 - 16) 12 10 BUN (9 - 20 mg/dL) 86 H 79 H Creatinine (0.7 - 1.2 mg/dL) 5.9 *H 5.3 *H Estimated GFR (>60 ml/min) 9 L 10 L BUN/Creatinine Ratio (7 - 25 %) 14.6 14.9 Hematology CBC w Diff NO MAN DIFF REQ WBC (4.8 - 10.8 /CUMM) 4.4 L RBC (4.70 - 6.10 /CUMM) 3.15 L Hgb (14.0 - 18.0 G/DL) 9.4 L Hct (42 - 52 %) 27.6 L MCV (80.0 - 94.0 FL) 87.8 MCH (27.0 - 31.0 PG) 29.9 RDW (11.5 - 14.5 %) 13.5 Plt Count (130 - 400 /CUMM) 128 L MPV (7.4 - 10.4 FL) 8.6 Gran % (42.2 - 75.2 %) 72.0 Lymphocytes % (20.5 - 51.1 %) 13.4 L Monocytes % (1.7 - 9.3 %) 7.9 Eosinophils % (0 - 5 %) 6.2 H Basophils % (0.0 - 2.0 %) 0.5 Absolute Granulocytes (1.4 - 6.5 /CUMM) 3.2 Absolute Lymphocytes (1.2 - 3.4 /CUMM) 0.6 L Absolute Monocytes (0.10 - 0.60 /CUMM) 0.4 Absolute Eosinophils (0.0 - 0.7 /CUMM) 0.3 Absolute Basophils (0.0 - 0.2 /CUMM) 0 PUBS MCHC (33.0 - 37.0 G/DL) 34.1 /02 03/02 0850 0610 Chemistry Sodium (137 - 145 mmol/L) 140 Potassium (3.5 - 5.1 mmol/L) 4.1 Chloride (98 - 107 mmol/L) 104 Carbon Dioxide (22 - 30 mmol/L) 27 Anion Gap (5 - 16) 9 BUN (9 - 20 mg/dL) 83 H Creatinine (0.7 - 1.2 mg/dL) 5.3 *H Estimated GFR (>60 ml/min) 10 L BUN/Creatinine Ratio (7 - 25 %) 15.7 Creatine Kinase (55 - 170 U/L) 316 H Urines Urinalysis LIGHT H Urine Color (YEL,AMB,STR) YEL Urine Clarity (CLEAR) CLEAR Urine pH (5.0 - 8.0) 6.0 Ur Specific [place] (1.001 - 1.035) 1.015 Urine Protein (NEG,<30 MG/DL) 30 H Urine Ketones (NEG) NEG Urine Nitrite (NEG) NEG Urine Bilirubin (NEG) NEG Urine Urobilinogen (0.1 - 1.0 EU/dl) 0.2 Ur Leukocyte Esterase (NEG) NEG Ur Microscopic SEDIMENT EXAMINED Urine RBC (0 - 5 /HPF) 15-25 H Urine WBC (0 - 2 /HPF) 1-3 H Ur Epithelial Cells (NONE,FEW) RARE Urine Bacteria (NEG/NONE) FEW H Urine Hemoglobin (NEG) SMALL H Urine Glucose (N MG/DL) NEG Imaging/Other Studies: EXAM TYPE: RAD - XRY-PORTABLE CHEST XRAY EXAMINATION: XR PORTABLE CHEST CLINICAL INFORMATION: Evaluate for pulmonary pathology COMPARISON: Multiple chest x-rays most recent prior dated 08/30/2016 TECHNIQUE: Portable AP view of the chest was obtained. FINDINGS: Status post median sternotomy and CABG. Stable cardiomegaly. Mild central pulmonary vascular congestion. Stable low left lung volume with moderate elevation of the left hemidiaphragm. Increasing streaky opacity noted in the left base. Mild blunting of the left costophrenic sulcus may represent trace fluid or pleural thickening. Streaky atelectasis right base.. IMPRESSION: 1. Streaky atelectasis or infiltrate left base. 2. Persistent elevation of the left hemidiaphragm. 3. Minor subsegmental atelectasis right base.
[2016-09-03 23:47] VITALS: BP 160/80
[2016-09-04 08:07] LABS: ABSOLUTE BASOPHIL COUNT 0 /CUMM (0.0-0.2); ABSOLUTE EOSINOPHIL COUNT 0.2 /CUMM (0.0-0.7); ABSOLUTE GRANULOCYTE CT 3.8 /CUMM (1.4-6.5); ABSOLUTE LYMPH COUNT 0.4 /CUMM (1.2-3.4); ABSOLUTE MONOCYTE COUNT 0.4 /CUMM (0.10-0.60); BASOPHIL % 0 % (0.0-2.0); EOSINOPHIL % 3.9 % (0-5); GRANULOCYTE % 79.3 % (42.2-75.2); HEMATOCRIT 27.8 % (42-52); MEAN CORPUSCULAR HGB 30.1 PG (27.0-31.0); MEAN CORPUSCULAR HGB CONC 33.7 G/DL (33.0-37.0); MEAN CORPUSCULAR VOLUME 89.4 FL (80.0-94.0); MEAN PLATELET VOLUME 8.8 FL (7.4-10.4); PLATELET COUNT 118 /CUMM (130-400); RBC DISTRIBUTION WIDTH 13.8 % (11.5-14.5); RED BLOOD CELL CT 3.11 /CUMM (4.70-6.10); WHITE BLOOD CELL COUNT 4.8 /CUMM (4.8-10.8)
[2016-09-04 08:15] VITALS: BP 142/74
--- NOTE | 2016-09-04 08:33 | PN- Housestaff ---
NILA BAIN,[place] 09/04/16 0833: Subjective Follow-up For: Aspiration PNA Complaints: no complaints Subjective: Patient reports no new concerns. Review of Systems Constitutional: Reports: see HPI. Objective Last 24 Hrs of Vital Signs/I&O Vital Signs Date Time Temp Pulse Resp B/P Pulse O2 O2 Flow FiO2 Ox Delivery Rate 09/04 09 140/74 03/05 0907 140/74 / 0907 140/74 / 0907 140/74 / 0815 97.8 70 20 142/74 90 Nasal 4.0L Cannula 09/04 0806 91 Nasal 4.0L Cannula 09/04 0000 Nasal 2.0L Cannula 09/03 2347 97.7 68 20 160/80 94 Nasal 2.0L Cannula 09/03 2238 148/70 09/03 2237 148/70 09/03 1605 98.4 63 20 160/80 95 / 1600 Nasal 2.0L Cannula Intake & Output 09/04 1600 09/04 0800 09/04 0000 Intake Total 250 425 Output Total 300 550 Balance -50 -125 Intake, IV 10 Intake, Oral 240 425 Output, Urine 300 550 Physical Exam General Appearance: Alert, Oriented X3, Cooperative, No Acute Distress Skin: No Rashes HEENT: Atraumatic, PERRLA, EOMI, Mucous Membr. moist/pink Cardiovascular: Regular Rate, Normal S1, Normal S2, No Murmurs Lungs: Clear to Auscultation Abdomen: Normal Bowel Sounds, Soft, No Tenderness, No Hepatospenomegaly, No Masses Extremities: No Clubbing, No Cyanosis, No Edema Current Medications: Current Medications Sig/Tiffanie Start time Last Medication Dose Route Stop Time Status Admin Acetaminophen 650 MG Q6P PRN 08/30 0015 AC PO Amlodipine Besylate 10 MG DAILY 08/30 1000 AC 09/04 PO 0907 Ampicillin Sodium/ 1,500 MG 09/03 0900 DC 09/03 Sulbactam Sodium IV 0934 Sodium Chloride 100 ML Atorvastatin Calcium 20 MG DAILY 08/30 1000 AC 09/04 PO 0907 Cholecalciferol 1,000 IU DAILY 08/30 1000 AC 09/04 PO 0907 Docusate Sodium 100 MG BID 08/30 1000 AC 09/04 PO 0907 Erythromycin 1 ANI AT BEDTIME 08/30 2200 AC 09/03 OPH 2234 Ezetimibe 10 MG DAILY 08/30 1000 AC 09/04 PO 09 Ferrous Sulfate 325 MG BID 08/30 1000 AC 09/04 PO 09 Heparin Sodium 5,000 UNIT Q8 08/30 0600 AC 09/04 (Porcine) SC 06 Hydralazine HCl 100 MG BID 08/30 1000 AC 09/04 PO 0907 Isosorbide 60 MG DAILY 08/30 1000 AC 09/04 Mononitrate PO 09 Labetalol HCl 300 MG BID 08/30 1000 AC 09/04 PO 09 Levothyroxine Sodium 0.05 MG DAILY AC 08/30 0700 AC 09/04 PO 06 Omeprazole 40 MG 0700,1600 08/30 0700 AC 09/04 PO 0604 Patient Own 1 UNIT Q8P PRN 08/30 0115 AC 08/30 Medication TOP 194 Polyethylene Glycol 17 GM DAILY 08/30 1000 AC 09/04 PO 0906 Pregabalin 75 MG QPM 08/30 2200 AC 09/03 PO 223 Senna 187 MG DAILY 08/30 1000 AC 09/04 PO 09 Last 24 Hrs of Lab/Jamel Results Last 24 Hrs of Labs/Mics: Laboratory Tests 09/04/16 0620: Anion Gap 11, Estimated GFR 8 L, BUN/Creatinine Ratio 14.1, CBC w Diff NO MAN DIFF REQ, RBC 3.11 L, MCV 89.4, MCH 30.1, RDW 13.8, MPV 8.8, Gran % 79.3 H, Lymphocytes % 8.5 L, Monocytes % 8.3, Eosinophils % 3.9, Basophils % 0 L, Absolute Granulocytes 3.8, Absolute Lymphocytes 0.4 L, Absolute Monocytes 0.4, Absolute Eosinophils 0.2, Absolute Basophils 0, PUBS MCHC 33.7 Assessment/Plan Assessment: Patient is a 86 y/o M with PMH HTN, HLD, CAD S/P CABG, hypothyroidism, CK D, anemia, GI bleed, history of colon cancer S/P resection, HFpEF, chronic pain on pain stimulator, ROBYN not on CPAP, on nighttime oxygen was admitted for worsening creatinine levels in his recent blood work. He was also being treated for balance issues and hallucinations by his PCP. Assessment and plan: 1. Acute on chronic CKD 4/5: Creatinine 2.4 in June 2016. Acute worsening in the last 2 months. Patient has been on temporal dialysis in the past. * Creatinine increases from 5.9 to 6.4 * Repeat UA showed some proteinuria and hematuria * Mims catheter removed. Successful voiding trial with adequate urine output in the last 24 hours. * IV fluids have been stopped. * Holding Lasix for now * Avoid nephrotoxic medications * Nephrology on board, recommendation if SCr stable and not increasing patient could be discharged. However given the increase patient is not stable for discharge today. 2. Sudden onset of shortness of breath? Aspiration. Afebrile. * IV unasyn started but cr increased, iv unasyn stopped after 1 day, will watch off abx 3. Hypertension: Stable * Continue labetalol, hydralazine and amlodipine * Holding Lasix for kidney injury * Continue all other home meds 4. Postherpetic neuralgia * Patient on Lyrica for pain control 5. Hallucinations: Resolved * Working with PT for balance problems 6. 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 Renal cysts on CT. Normal-size kidneys. * Creatinine 2.4 in June 2016 * Was on temporary dialysis before * Continuous Improvement Coach is Dr. Zack Cross ([phone]) * hyperkalemia today of 5.2. If incraseing will consider intervention. Diet - Heart healthy Diet DVT prophylaxis-ALP S/heparin Code Status -Full Code Problem List: 1. Aspiration pneumonia Pain Ratin Pain Location: none Pain Goal: Pain 4 or less Pain Plan: Pain pathway Tomorrow's Labs & Rationales: CKD YENY NICK MD 09/04/16 1511: Attending MD Review Statement Attending Statement Attending MD Statement: examined this patient, discuss w/resident/PA/PAINT CREW SUPERVISOR, agreed w/resident/PA/PAINT CREW SUPERVISOR, reviewed EMR data (avail) Attending Assessment/Plan: Creatinine increased to 6.4 today. Patient is well and has no complaints. He does desarturate with ambulation to 85%. Afebrile, mild cough. Metabolic encephalopathy seen on admission has since resolved and is likely due to medications such as Lyrica. Plan - May discontinue Unasyn - Continue to monitor urine output - Repeat BEP tomorrow - Follow nephrology recommendations - Continue home medications - Avoid nephrotoxic medications - No further IV fluids - DVT PPx - Outpatient modified barium swallow. Seen by speech therapy, instructions given.
[2016-09-04 15:27] VITALS: BP 172/86
--- NOTE | 2016-09-04 16:40 | PN- Nephrology ---
Assessment/Plan Assessment: GURPREET - GURPREET in last couple days presumably from urinary obstruction. Will need to see if SCr improves with cruz placement. Has required a prolonged cruz in the past post-op in speaking to his . He has a Urologist (she can't remember his name). He may need to go home with a catheter if his SCr now starts to decrease. Should get Urology input. Hallucinations -resolved. Likely Lyrica building up in the setting of GURPREET. 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 I suspect that the renal cysts are acquired rather than the underlying cause of his CKD as his kidneys are normal in size and he is 86 years old. Suggestion: -OK to hold diuretics today -Maintain cruz catheter -Urology consult -No need for dialysis at this time Will continue to follow. Please call [phone] with ?'s Subjective Subjective: SCr up to 6.4 Hg stable at 9.4 No uremic symptoms Cruz catheter replaced after PVR of ~172cc (after voiding 350cc) Objective Vital Signs and I&Os Vital Signs Date Time Temp Pulse Resp B/P Pulse O2 O2 Flow FiO2 Ox Delivery Rate 09/04 1625 92 Nasal 3.0L Cannula 09/04 1527 97.8 70 18 172/86 94 / 0907 140/74 03/ 0907 140/74 03/ 0907 140/74 03/ 0907 140/74 03/ 0815 97.8 70 20 142/74 90 Nasal 4.0L Cannula 09/04 0806 91 Nasal 4.0L Cannula 09/04 0000 Nasal 2.0L Cannula 09/03 2347 97.7 68 20 160/80 94 Nasal 2.0L Cannula 09/03 2238 148/70 09/03 2237 148/70 Intake & Output 09/04 1600 / 0400 / 1600 / 0400 09/02 1600 / 0400 Intake Total 650 425 520 400 980 680 Output Total 6178 632 1960 900 950 Balance -450 -125 -730 400 80 -270 Intake, IV 10 100 Intake, Oral 640 425 520 400 880 680 Output, Urine 8962 349 8821 900 950 Patient 240 lb Weight Physical Exam: Gen - NAD HEENT - supple CV - RRR Chest - decreased breath sounds L base Abd - soft, nontender Ext - trace edema Neuro - alert, oriented, conversive Current Medications: Current Medications Sig/Tiffanie Start time Last Medication Dose Route Stop Time Status Admin Acetaminophen 650 MG Q6P PRN 08/30 0015 AC PO Amlodipine Besylate 10 MG DAILY 08/30 1000 AC 09/04 PO 0907 Atorvastatin Calcium 20 MG DAILY 08/30 1000 AC 09/04 PO 0907 Cholecalciferol 1,000 IU DAILY 08/30 1000 AC 09/04 PO 0907 Docusate Sodium 100 MG BID 08/30 1000 AC 09/04 PO 0907 Erythromycin 1 ANI AT BEDTIME 08/30 2200 AC 09/03 OPH 2234 Ezetimibe 10 MG DAILY 08/30 1000 AC 09/04 PO 0907 Ferrous Sulfate 325 MG BID 08/30 1000 AC 09/04 PO 0907 Heparin Sodium 5,000 UNIT Q8 08/30 0600 AC 09/04 (Porcine) SC 1458 Hydralazine HCl 100 MG BID 08/30 1000 AC 09/04 PO 0907 Isosorbide 60 MG DAILY 08/30 1000 AC 09/04 Mononitrate PO 0907 Labetalol HCl 300 MG BID 08/30 1000 AC 09/04 PO 0907 Levothyroxine Sodium 0.05 MG DAILY AC 08/30 0700 AC 09/04 PO 0604 Omeprazole 40 MG 0700,1600 08/30 0700 AC 09/04 PO 1529 Patient Own 1 UNIT Q8P PRN 08/30 0115 AC 08/30 Medication TOP 1946 Polyethylene Glycol 17 GM DAILY 08/30 1000 AC 09/04 PO 0906 Pregabalin 75 MG QPM 08/30 2200 AC 09/03 PO 2234 Senna 187 MG DAILY 08/30 1000 AC 09/04 PO 0907 Results Pertinent Lab Results: Laboratory Tests 09/04 03 0620 0615 Chemistry Sodium (137 - 145 mmol/L) 137 139 Potassium (3.5 - 5.1 mmol/L) 5.2 H 5.0 Chloride (98 - 107 mmol/L) 102 100 Carbon Dioxide (22 - 30 mmol/L) 23 27 Anion Gap (5 - 16) 11 12 BUN (9 - 20 mg/dL) 90 H 86 H Creatinine (0.7 - 1.2 mg/dL) 6.4 *H 5.9 *H Estimated GFR (>60 ml/min) 8 L 9 L BUN/Creatinine Ratio (7 - 25 %) 14.1 14.6 Hematology CBC w Diff NO MAN DIFF REQ WBC (4.8 - 10.8 /CUMM) 4.8 RBC (4.70 - 6.10 /CUMM) 3.11 L Hgb (14.0 - 18.0 G/DL) 9.4 L Hct (42 - 52 %) 27.8 L MCV (80.0 - 94.0 FL) 89.4 MCH (27.0 - 31.0 PG) 30.1 RDW (11.5 - 14.5 %) 13.8 Plt Count (130 - 400 /CUMM) 118 L MPV (7.4 - 10.4 FL) 8.8 Gran % (42.2 - 75.2 %) 79.3 H Lymphocytes % (20.5 - 51.1 %) 8.5 L Monocytes % (1.7 - 9.3 %) 8.3 Eosinophils % (0 - 5 %) 3.9 Basophils % (0.0 - 2.0 %) 0 L Absolute Granulocytes (1.4 - 6.5 /CUMM) 3.8 Absolute Lymphocytes (1.2 - 3.4 /CUMM) 0.4 L Absolute Monocytes (0.10 - 0.60 /CUMM) 0.4 Absolute Eosinophils (0.0 - 0.7 /CUMM) 0.2 Absolute Basophils (0.0 - 0.2 /CUMM) 0 PUBS MCHC (33.0 - 37.0 G/DL) 33.7 03/03 0610 Chemistry Sodium (137 - 145 mmol/L) 139 Potassium (3.5 - 5.1 mmol/L) 4.5 Chloride (98 - 107 mmol/L) 101 Carbon Dioxide (22 - 30 mmol/L) 28 Anion Gap (5 - 16) 10 BUN (9 - 20 mg/dL) 79 H Creatinine (0.7 - 1.2 mg/dL) 5.3 *H Estimated GFR (>60 ml/min) 10 L BUN/Creatinine Ratio (7 - 25 %) 14.9 Hematology CBC w Diff NO MAN DIFF REQ WBC (4.8 - 10.8 /CUMM) 4.4 L RBC (4.70 - 6.10 /CUMM) 3.15 L Hgb (14.0 - 18.0 G/DL) 9.4 L Hct (42 - 52 %) 27.6 L MCV (80.0 - 94.0 FL) 87.8 MCH (27.0 - 31.0 PG) 29.9 RDW (11.5 - 14.5 %) 13.5 Plt Count (130 - 400 /CUMM) 128 L MPV (7.4 - 10.4 FL) 8.6 Gran % (42.2 - 75.2 %) 72.0 Lymphocytes % (20.5 - 51.1 %) 13.4 L Monocytes % (1.7 - 9.3 %) 7.9 Eosinophils % (0 - 5 %) 6.2 H Basophils % (0.0 - 2.0 %) 0.5 Absolute Granulocytes (1.4 - 6.5 /CUMM) 3.2 Absolute Lymphocytes (1.2 - 3.4 /CUMM) 0.6 L Absolute Monocytes (0.10 - 0.60 /CUMM) 0.4 Absolute Eosinophils (0.0 - 0.7 /CUMM) 0.3 Absolute Basophils (0.0 - 0.2 /CUMM) 0 PUBS MCHC (33.0 - 37.0 G/DL) 34.1 Imaging/Other Studies: EXAM TYPE: RAD - XRY-PORTABLE CHEST XRAY EXAMINATION: XR PORTABLE CHEST CLINICAL INFORMATION: Evaluate for pulmonary pathology COMPARISON: Multiple chest x-rays most recent prior dated 08/30/2016 TECHNIQUE: Portable AP view of the chest was obtained. FINDINGS: Status post median sternotomy and CABG. Stable cardiomegaly. Mild central pulmonary vascular congestion. Stable low left lung volume with moderate elevation of the left hemidiaphragm. Increasing streaky opacity noted in the left base. Mild blunting of the left costophrenic sulcus may represent trace fluid or pleural thickening. Streaky atelectasis right base.. IMPRESSION: 1. Streaky atelectasis or infiltrate left base. 2. Persistent elevation of the left hemidiaphragm. 3. Minor subsegmental atelectasis right base. EXAM TYPE: US - US-RENAL/KIDNEY EXAMINATION: US RETROPERITONEAL COMPLETE (RENAL) CLINICAL INFORMATION: 86-year-old male with acute kidney injury. Suspected obstruction. COMPARISON: CT of the abdomen and pelvis done on 10/20/2015. TECHNIQUE: Real-time imaging of the kidneys and bladder. FINDINGS: RIGHT KIDNEY: 10.6 x 4.3 x 4.9 cm (SAG x AP x TRV). Marked diffuse cortical thinning is noted throughout the entire right kidney without evidence of any hydronephrosis. There are 3 cortical renal cysts identified, the largest seen at the inferior pole, measures 3.6 x 2.0 x 2.8 cm. The second smaller cortical cyst is noted at the mid pole, measures 2.1 x 1.9 x 2.0 cm. The superior polar cyst measures 1.8 x 1.6 x 1.8 cm. LEFT KIDNEY: 11.1 x 6.0 x 6.3 cm (SAG x AP x TRV). Moderate diffuse cortical thinning is present with no evidence of any hydronephrosis. Superimposed multiple cystic abnormalities are present, one at the upper pole measures 2.0 x 1.8 x 2.5 cm, while the cystic abnormality seen at the mid pole measures 2.5 x 2.0 x 2.1 cm. BLADDER: Bladder is decompressed. There is a Cruz catheter present. IMPRESSION: 1. Bilateral normal size kidneys with evidence of marked diffuse cortical thinning on the right and moderate diffuse cortical thinning on the left with superimposed multiple cystic abnormalities, as described above. 2. No sonographic evidence of hydronephrosis on either side.
[2016-09-04 18:35] VITALS: BP 162/84
[2016-09-04 22:21] VITALS: BP 148/72
[2016-09-05 07:12] VITALS: BP 134/68
[2016-09-05 08:54] LABS: ABSOLUTE BASOPHIL COUNT 0 /CUMM (0.0-0.2); ABSOLUTE EOSINOPHIL COUNT 0.1 /CUMM (0.0-0.7); ABSOLUTE GRANULOCYTE CT 4.5 /CUMM (1.4-6.5); ABSOLUTE LYMPH COUNT 0.3 /CUMM (1.2-3.4); ABSOLUTE MONOCYTE COUNT 0.5 /CUMM (0.10-0.60); BASOPHIL % 0.2 % (0.0-2.0); GRANULOCYTE % 82.3 % (42.2-75.2); HEMATOCRIT 26.4 % (42-52); MEAN CORPUSCULAR HGB 29.7 PG (27.0-31.0); MEAN CORPUSCULAR HGB CONC 33.5 G/DL (33.0-37.0); MEAN CORPUSCULAR VOLUME 88.8 FL (80.0-94.0); MEAN PLATELET VOLUME 8.6 FL (7.4-10.4); PLATELET COUNT 114 /CUMM (130-400); RBC DISTRIBUTION WIDTH 13.7 % (11.5-14.5); RED BLOOD CELL CT 2.97 /CUMM (4.70-6.10); WHITE BLOOD CELL COUNT 5.4 /CUMM (4.8-10.8)
--- NOTE | 2016-09-05 10:07 | PN- Housestaff ---
FERNANDOMARCELOFRANKO 09/05/16 1007: Subjective Follow-up For: Acute and chronic kidney injury Aspiration pneumonia Complaints: no complaints Subjective: Patient's creatinine has been worsening. His creatinine this morning was 6.9. His urine is clear and shows no signs of hematuria. Patient feels better this morning. Offers no complaints. Still continues to be on 2 L of oxygen. Review of Systems Constitutional: Reports: no symptoms. EENTM: Reports: no symptoms. Cardiovascular: Reports: no symptoms. Respiratory: Reports: short of breath. Gastrointestinal: Reports: no symptoms. Genitourinary: Reports: no symptoms. Musculoskeletal: Reports: no symptoms. Skin: Reports: no symptoms. Neurological/Psychological: Reports: no symptoms. Hematologic/Endocrine: Reports: no symptoms. Objective Last 24 Hrs of Vital Signs/I&O Vital Signs Date Time Temp Pulse Resp B/P Pulse O2 O2 Flow FiO2 Ox Delivery Rate 09/05 1356 98.2 87 20 130/70 90 / 1040 134/68 09/05 1039 134/68 09/05 0712 97.9 87 20 134/68 88 Nasal Cannula 09/05 0000 92 Nasal 3.0L Cannula 09/04 2221 97.6 80 20 148/72 91 Nasal Cannula 09/04 2138 73 162/84 09/04 2137 73 162/84 09/04 1835 98.1 73 16 162/84 92 Nasal 3.0L Cannula 09/04 1625 92 Nasal 3.0L Cannula 09/04 1527 97.8 70 18 172/86 94 Intake & Output 09/05 1600 09/05 0800 09/05 0000 Intake Total 220 240 Output Total 600 400 Balance -600 220 -160 Intake, Oral 220 240 Output, Urine 600 400 Physical Exam General Appearance: Alert, Cooperative, No Acute Distress Skin: No Rashes, No Breakdown HEENT: Atraumatic, PERRLA, EOMI Neck: Supple, No JVD Lymphatic: Cervical nl Cardiovascular: Regular Rate, Normal S1, Normal S2 Lungs: bilateral crackles Abdomen: Normal Bowel Sounds, Soft, No Tenderness Neurological: Normal Speech, Normal Tone Extremities: No Clubbing, No Cyanosis, No Edema Current Medications: Current Medications Sig/Tiffanie Start time Last Medication Dose Route Stop Time Status Admin Acetaminophen 650 MG Q6P PRN 08/30 0015 AC PO Albuterol Sulfate 3 ML Q4H PRN 09/05 1330 AC INH Amlodipine Besylate 10 MG DAILY 08/30 1000 AC 09/05 PO 1040 Atorvastatin Calcium 20 MG DAILY 08/30 1000 AC 09/05 PO 1040 Cholecalciferol 1,000 IU DAILY 08/30 1000 AC 09/05 PO 1039 Docusate Sodium 100 MG BID 08/30 1000 AC 09/05 PO 1040 Erythromycin 1 ANI AT BEDTIME 08/30 2200 AC 09/04 OPH 2139 Ezetimibe 10 MG DAILY 08/30 1000 AC 09/05 PO 1039 Ferrous Sulfate 325 MG BID 08/30 1000 AC 09/05 PO 1040 Heparin Sodium 5,000 UNIT Q8 08/30 0600 AC 09/05 (Porcine) SC 0552 Hydralazine HCl 100 MG BID 08/30 1000 AC 09/05 PO 1040 Isosorbide 60 MG DAILY 08/30 1000 AC 09/05 Mononitrate PO 1040 Labetalol HCl 300 MG BID 08/30 1000 AC 09/05 PO 1039 Levothyroxine Sodium 0.05 MG DAILY AC 08/30 0700 AC 09/05 PO 0552 Omeprazole 40 MG 0700,1600 08/30 0700 AC 09/05 PO 0552 Patient Medication 1 ED .STK-MED ONE 09/05 1409 [place] Teaching ED 09/05 1410 Patient Own 1 UNIT Q8P PRN 08/30 0115 AC 08/30 Medication TOP 1946 Polyethylene Glycol 17 GM DAILY 08/30 1000 AC 09/05 PO 1039 Pregabalin 75 MG QPM 08/30 2200 AC 09/04 PO 2138 Senna 187 MG DAILY 08/30 1000 AC 09/05 PO 1040 Last 24 Hrs of Lab/Jamel Results Last 24 Hrs of Labs/Mics: Laboratory Tests 09/05/16 0737: Anion Gap 16, Estimated GFR 8 L, BUN/Creatinine Ratio 13.9, CBC w Diff NO MAN DIFF REQ, RBC 2.97 L, MCV 88.8, MCH 29.7, RDW 13.7, MPV 8.6, Gran % 82.3 H, Lymphocytes % 6.0 L, Monocytes % 9.5 H, Eosinophils % 2.0, Basophils % 0.2, Absolute Granulocytes 4.5, Absolute Lymphocytes 0.3 L, Absolute Monocytes 0.5, Absolute Eosinophils 0.1, Absolute Basophils 0, PUBS MCHC 33.5 Assessment/Plan Assessment: Patient is a 86 y/o M with PMH HTN, HLD, CAD S/P CABG, hypothyroidism, CK D, anemia, GI bleed, history of colon cancer S/P resection, HFpEF, chronic pain on pain stimulator, ROBYN not on CPAP, on nighttime oxygen was admitted for worsening creatinine levels in his recent blood work. He was also being treated for balance issues and hallucinations by his PCP. Assessment and plan: 1. 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 Initial thought was that his creatinine might get better with the placement of Mims. However creatinine has been worsening, no clear evidence of nephrotoxic insults. * Creatinine worsened to 6.9 this a.m. * Potassium increased to repeat UA and microscopic analysis * Repeat UA showed some proteinuria and hematuria * Mims catheter removed. Successful voiding trial with adequate urine output in the last 24 hours. * IV fluids have been stopped. * Holding Lasix for now * Avoid nephrotoxic medications * Urine protein, creatinine and microalbumin sent * We will check SPEP and [place] Lambda free light chains * Patient may need dialysis if creatinine continues to worsen * Nephrology on board 2. Aspiration pneumonia * No white count, afebrile * Still continues to be on 3 L oxygen, will try to taper down. * IV unasyn was started but cr increased, iv unasyn stopped after 1 day, due to worsening of creatinine 3. Hypertension: Stable * Continue labetalol, hydralazine and amlodipine * Holding Lasix for kidney injury * Continue all other home meds 4. Postherpetic neuralgia * Patient on Lyrica for pain control 5. Hallucinations: Resolved * Working with PT for balance problems 6. 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 Renal cysts on CT. Normal-size kidneys. * Creatinine 2.4 in June 2016 * Was on temporary dialysis before * Human Service Technician is Dr. Zack Cross ([phone]) * hyperkalemia today of 5.4. Diet - Heart healthy Diet DVT prophylaxis-ALP S/heparin Code Status -Full Code Problem List: 1. GURPREET (acute kidney injury) 2. Aspiration pneumonia Pain Ratin Pain Location: none Pain Goal: Remain pain free Pain Plan: tylenol Tomorrow's Labs & Rationales: bep... gurpreet on ckd RIYA BAIN,COILN 09/05/16 1129: Attending MD Review Statement Attending Statement Attending MD Statement: examined this patient, discuss w/resident/PA/MISSION MANAGER, agreed w/resident/PA/MISSION MANAGER, reviewed EMR data (avail) Attending Assessment/Plan: Patient was seen and examined. She is sitting in chair comfortably. Mims is draining clear urine. Patient denies any recent fever chills or chest pains. His can afebrile with stable vital signs. He is currently on 3 L of oxygen. Chest exam shows decreased air entry the left base. Abdomen soft nontender. Labs were reviewed. CBC shows a chronic anemia and decreasing in platelet count 114. Potassium is 5.4 and creatinine has increased to 6.9. Assessment and plan * Acute and chronic renal failure- unfortunately creatinine has been progressively increasing. Patient does not currently have any uremic symptoms. We did discuss next step with nephrology. Recheck creatinine tomorrow. * Hyperkalemia- * Recent diagnosis of pneumonia- patient received short course of Unasyn which was discontinued due to fears of interstitial nephritis. Patient currently is afebrile. * Hypoxia- patient needs incentive spirometry
--- NOTE | 2016-09-05 11:08 | PN- Nephrology ---
Assessment/Plan Assessment: GURPREET - I was hopeful that his SCr would improve with placement of the cruz catheter but it has not. His initial renal U/S did suggest a significant degree of cortical thinning - suggestive of severe CKD. At this time, the etiology of his initial presentation remains unclear and although he may have had some element of urinary retention without the cruz catheter, his SCr is still increasing with the cruz in. There have been no clear hemodynamic insults or nephrotoxic meds. He has had no peripheral eosinophilia (absolute eosinophil count low). And I think that his volume status seems reasonable and he does not clearly need IVF - his diuretic is being held. His cardiac function was normal in October of last year and I don't think that it needs to be repeated. Unfortunately if his SCr continues to rise, he may need to be initiated on dialysis. A renal biopsy at this time would not be clinically helpful. Hallucinations -resolved. I thought that this was 2/2 Lyrica although he continues to get this medication? 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 I suspect that the renal cysts are acquired rather than the underlying cause of his CKD as his kidneys are normal in size and he is 86 years old. Suggestion: -Would repeat UA with microscopic analysis -Would send urine protein, creatinine, and microalbumin -Would hold diuretics today -Would send SPEP and [place] Lambda free light chains -May need dialysis if SCr continues to uptrend I discussed this with the patient but his was not available. If she is here soon, I can talk to her today otherwise I will have to discuss this with her tomorrow morning. Will continue to follow. Please call [phone] with ?'s Subjective Subjective: SCr continues to uptrend - now 6.9 No clear uremic symptoms Cruz catheter is in (was placed Monday evening) - SCr increasing despite cruz Hg down to 8.8 Plts down to 114 - no recent T bili WBC not elevated - no fever Initial UA (08/29) - trace protein, rare RBC, neg leuks 2nd UA (09/01) - with cruz catheter - 30mg protein, 15-25 RBC, 1-3 WBC's Cruz taken out and now replaced Objective Vital Signs and I&Os Vital Signs Date Time Temp Pulse Resp B/P Pulse O2 O2 Flow FiO2 Ox Delivery Rate 09/05 1040 134/68 09/05 1039 134/68 / 0712 97.9 87 20 134/68 88 Nasal Cannula 09/05 0000 92 Nasal 3.0L Cannula 09/04 2221 97.6 80 20 148/72 91 Nasal Cannula 09/048 73 162/84 09/04 213 73 162/84 09/04 1835 98.1 73 16 162/84 92 Nasal 3.0L Cannula 09/04 162 92 Nasal 3.0L Cannula 09/04 1527 97.8 70 18 172/86 94 Intake & Output 09/05 1600 09/05 0400 09/04 1600 09/04 0400 09/03 1600 09/03 0400 Intake Total 220 240 650 425 520 400 Output Total 400 9161 953 3021 Balance 220 -160 -450 -125 -730 400 Intake, IV 10 Intake, Oral 220 240 640 425 520 400 Output, Urine 400 3983 717 0445 Physical Exam: Gen - OK appearing HEENT - supple CV - RRR Chest - scant bibasilar crackles, "gurgly" sounding Abd - soft, nontender Ext - no edema Neuro - alert, conversive Current Medications: Current Medications Sig/Tiffanie Start time Last Medication Dose Route Stop Time Status Admin Acetaminophen 650 MG Q6P PRN 08/30 0015 AC PO Amlodipine Besylate 10 MG DAILY 08/30 1000 AC 09/05 PO 1040 Atorvastatin Calcium 20 MG DAILY 08/30 1000 AC 09/05 PO 1040 Cholecalciferol 1,000 IU DAILY 08/30 1000 AC 09/05 PO 1039 Docusate Sodium 100 MG BID 08/30 1000 AC 09/05 PO 1040 Erythromycin 1 ANI AT BEDTIME 08/30 2200 AC 09/04 OPH 2139 Ezetimibe 10 MG DAILY 08/30 1000 AC 09/05 PO 1039 Ferrous Sulfate 325 MG BID 08/30 1000 AC 09/05 PO 1040 Heparin Sodium 5,000 UNIT Q8 08/30 0600 AC 09/05 (Porcine) SC 0552 Hydralazine HCl 100 MG BID 08/30 1000 AC 09/05 PO 1040 Isosorbide 60 MG DAILY 08/30 1000 AC 09/05 Mononitrate PO 1040 Labetalol HCl 300 MG BID 08/30 1000 AC 09/05 PO 1039 Levothyroxine Sodium 0.05 MG DAILY AC 08/30 0700 AC 09/05 PO 0552 Omeprazole 40 MG 0700,1600 08/30 0700 AC 09/05 PO 0552 Patient Own 1 UNIT Q8P PRN 08/30 0115 AC 08/30 Medication TOP 1946 Polyethylene Glycol 17 GM DAILY 08/30 1000 AC 09/05 PO 1039 Pregabalin 75 MG QPM 08/30 2200 AC 09/04 PO 2138 Senna 187 MG DAILY 08/30 1000 AC 09/05 PO 1040 Results Pertinent Lab Results: Laboratory Tests 09/05 09/04 0737 0620 Chemistry Sodium (137 - 145 mmol/L) 138 137 Potassium (3.5 - 5.1 mmol/L) 5.4 H 5.2 H Chloride (98 - 107 mmol/L) 99 102 Carbon Dioxide (22 - 30 mmol/L) 23 23 Anion Gap (5 - 16) 16 11 BUN (9 - 20 mg/dL) 96 H 90 H Creatinine (0.7 - 1.2 mg/dL) 6.9 *H 6.4 *H Estimated GFR (>60 ml/min) 8 L 8 L BUN/Creatinine Ratio (7 - 25 %) 13.9 14.1 Hematology CBC w Diff NO MAN DIFF REQ NO MAN DIFF REQ WBC (4.8 - 10.8 /CUMM) 5.4 4.8 RBC (4.70 - 6.10 /CUMM) 2.97 L 3.11 L Hgb (14.0 - 18.0 G/DL) 8.8 L 9.4 L Hct (42 - 52 %) 26.4 L 27.8 L MCV (80.0 - 94.0 FL) 88.8 89.4 MCH (27.0 - 31.0 PG) 29.7 30.1 RDW (11.5 - 14.5 %) 13.7 13.8 Plt Count (130 - 400 /CUMM) 114 L 118 L MPV (7.4 - 10.4 FL) 8.6 8.8 Gran % (42.2 - 75.2 %) 82.3 H 79.3 H Lymphocytes % (20.5 - 51.1 %) 6.0 L 8.5 L Monocytes % (1.7 - 9.3 %) 9.5 H 8.3 Eosinophils % (0 - 5 %) 2.0 3.9 Basophils % (0.0 - 2.0 %) 0.2 0 L Absolute Granulocytes (1.4 - 6.5 /CUMM) 4.5 3.8 Absolute Lymphocytes (1.2 - 3.4 /CUMM) 0.3 L 0.4 L Absolute Monocytes (0.10 - 0.60 /CUMM) 0.5 0.4 Absolute Eosinophils (0.0 - 0.7 /CUMM) 0.1 0.2 Absolute Basophils (0.0 - 0.2 /CUMM) 0 0 PUBS MCHC (33.0 - 37.0 G/DL) 33.5 33.7 / 0615 Chemistry Sodium (137 - 145 mmol/L) 139 Potassium (3.5 - 5.1 mmol/L) 5.0 Chloride (98 - 107 mmol/L) 100 Carbon Dioxide (22 - 30 mmol/L) 27 Anion Gap (5 - 16) 12 BUN (9 - 20 mg/dL) 86 H Creatinine (0.7 - 1.2 mg/dL) 5.9 *H Estimated GFR (>60 ml/min) 9 L BUN/Creatinine Ratio (7 - 25 %) 14.6 Imaging/Other Studies: EXAM TYPE: US - US-RENAL/KIDNEY EXAMINATION: US RETROPERITONEAL COMPLETE (RENAL) CLINICAL INFORMATION: 86-year-old male with acute kidney injury. Suspected obstruction. COMPARISON: CT of the abdomen and pelvis done on 10/20/2015. TECHNIQUE: Real-time imaging of the kidneys and bladder. FINDINGS: RIGHT KIDNEY: 10.6 x 4.3 x 4.9 cm (SAG x AP x TRV). Marked diffuse cortical thinning is noted throughout the entire right kidney without evidence of any hydronephrosis. There are 3 cortical renal cysts identified, the largest seen at the inferior pole, measures 3.6 x 2.0 x 2.8 cm. The second smaller cortical cyst is noted at the mid pole, measures 2.1 x 1.9 x 2.0 cm. The superior polar cyst measures 1.8 x 1.6 x 1.8 cm. LEFT KIDNEY: 11.1 x 6.0 x 6.3 cm (SAG x AP x TRV). Moderate diffuse cortical thinning is present with no evidence of any hydronephrosis. Superimposed multiple cystic abnormalities are present, one at the upper pole measures 2.0 x 1.8 x 2.5 cm, while the cystic abnormality seen at the mid pole measures 2.5 x 2.0 x 2.1 cm. BLADDER: Bladder is decompressed. There is a Cruz catheter present. IMPRESSION: 1. Bilateral normal size kidneys with evidence of marked diffuse cortical thinning on the right and moderate diffuse cortical thinning on the left with superimposed multiple cystic abnormalities, as described above. 2. No sonographic evidence of hydronephrosis on either side. EXAM TYPE: RAD - XRY-PORTABLE CHEST XRAY EXAMINATION: XR PORTABLE CHEST CLINICAL INFORMATION: Evaluate for pulmonary pathology COMPARISON: Multiple chest x-rays most recent prior dated 08/30/2016 TECHNIQUE: Portable AP view of the chest was obtained. FINDINGS: Status post median sternotomy and CABG. Stable cardiomegaly. Mild central pulmonary vascular congestion. Stable low left lung volume with moderate elevation of the left hemidiaphragm. Increasing streaky opacity noted in the left base. Mild blunting of the left costophrenic sulcus may represent trace fluid or pleural thickening. Streaky atelectasis right base.. IMPRESSION: 1. Streaky atelectasis or infiltrate left base. 2. Persistent elevation of the left hemidiaphragm. 3. Minor subsegmental atelectasis right base.
[2016-09-05 13:56] VITALS: BP 130/70
[2016-09-06 06:40] VITALS: BP 140/68
--- NOTE | 2016-09-06 09:17 | PN- Att Addend ---
Attending Addendum Attending Brief Note Attending MD Statement: examined this patient, discuss w/resident/PA/DIRECTOR EXPORT, agreed w/resident/PA/DIRECTOR EXPORT, reviewed EMR data (avail) Attending Assessment/Plan: Patient was seen and examined. Mims is draining clear urine. Patient denies any recent fever chills or chest pains. Vital Signs Date Time Temp Pulse Resp B/P Pulse O2 O2 Flow FiO2 Ox Delivery Rate 09/06 0640 98.1 66 20 140/68 93 Nasal 2.0L Cannula 09/06 0000 92 Nasal 3.0L Cannula 09/05 2056 68 140/70 09/05 2056 68 140/70 09/05 1636 92 Nasal 3.0L Cannula 09/05 1356 98.2 87 20 130/70 90 09/05 1040 134/68 09/05 1039 134/68 Intake & Output 09/06 1600 09/06 0800 09/06 0000 Intake Total 400 250 Output Total 100 Balance 400 150 Intake, Oral 400 250 Output, Urine 100 Chest exam shows decreased air entry the left base. Chest also shows left-sided wheezing and scattered crepitations. Patient appears slightly tachypneic than yesterday. Abdomen soft nontender. Laboratory Tests 09/06 09/05 09/05 0615 1500 1430 Chemistry Sodium (137 - 145 mmol/L) 135 L Potassium (3.5 - 5.1 mmol/L) 5.5 H Chloride (98 - 107 mmol/L) 99 Carbon Dioxide (22 - 30 mmol/L) 22 Anion Gap (5 - 16) 15 BUN (9 - 20 mg/dL) 109 *H Creatinine (0.7 - 1.2 mg/dL) 7.6 *H Estimated GFR (>60 ml/min) 7 L BUN/Creatinine Ratio (7 - 25 %) 14.3 Urines Ur Random Creatinine Pending Cancelled Ur Random Microalbumin Cancelled U Random Total Protein Pending Cancelled U Cystine/Creat Ratio Cancelled 09/05 1430 Urines Urinalysis LIGHT H Urine Color (YEL,AMB,STR) YEL Urine Clarity (CLEAR) HAZY H Urine pH (5.0 - 8.0) 6.0 Ur Specific [place] (1.001 - 1.035) 1.025 Urine Protein (NEG,<30 MG/DL) 100 H Urine Ketones (NEG) NEG Urine Nitrite (NEG) NEG Urine Bilirubin (NEG) NEG Urine Urobilinogen (0.1 - 1.0 EU/dl) 0.2 Ur Leukocyte Esterase (NEG) NEG Ur Microscopic SEDIMENT EXAMINED Urine RBC (0 - 5 /HPF) >75 H Urine WBC (0 - 2 /HPF) 1-3 H Ur Epithelial Cells (NONE,FEW) MANY H Hyaline Casts (0/LPF) FEW H Granular Casts (NONE /LPF) RARE H Urine Hemoglobin (NEG) MOD H Urine Glucose (N MG/DL) NEG Assessment and plan * Acute and chronic renal failure- unfortunately creatinine has been progressively increasing. Patient does not currently have any uremic symptoms. We did discuss next step with nephrology. Recheck creatinine tomorrow. He will likely need a hemodialysis. We will ask nephrology whether we should put a central catheter anticipation of dialysis. * Rule out CHF given the patient's tachypnea [place] obtain a chest x-ray to rule out fluid overload. * Hyperkalemia- can give a dose of Kayexalate given the potassium has progressively been increasing * Recent diagnosis of pneumonia- patient received short course of Unasyn which was discontinued due to fears of interstitial nephritis. Patient currently is afebrile. * Hypoxia- continue incentive spirometry
--- NOTE | 2016-09-06 10:20 | PN- Housestaff ---
Subjective Follow-up For: Acute and chronic kidney injury Aspiration pneumonia Subjective: Patient continues to fluctuating mentation. Creatinine worsened to 7.6 this morning. No uremic symptoms. Still continues to require 2 L of oxygen. We will check a chest x-ray to rule out pulmonary edema. Review of Systems Constitutional: Reports: malaise, weakness. EENTM: Reports: no symptoms. Cardiovascular: Reports: no symptoms. Respiratory: Reports: short of breath. Gastrointestinal: Reports: no symptoms. Genitourinary: Reports: no symptoms. Musculoskeletal: Reports: no symptoms. Skin: Reports: no symptoms. Objective Last 24 Hrs of Vital Signs/I&O Vital Signs Date Time Temp Pulse Resp B/P Pulse O2 O2 Flow FiO2 Ox Delivery Rate 09/06 0839 80 162/70 09/06 0839 162/70 09/06 0939 80 162/70 09/06 0939 80 162/70 09/06 0640 98.1 66 20 140/68 93 Nasal 2.0L Cannula / 0000 92 Nasal 3.0L Cannula 09/05 2057 68 140/70 09/05 2057 68 140/70 09/05 1636 92 Nasal 3.0L Cannula 09/05 1356 98.2 87 20 130/70 90 03/06 1040 134/68 03/06 1039 134/68 Intake & Output 09/06 1600 09/06 0800 / 0000 Intake Total 400 250 Output Total 100 Balance 400 150 Intake, Oral 400 250 Output, Urine 100 Physical Exam General Appearance: Alert, Mild Distress, not oriented Skin: No Rashes, No Breakdown HEENT: Atraumatic, PERRLA, nasal cannula Neck: Supple, No JVD Lymphatic: Cervical nl Cardiovascular: Regular Rate, Normal S1, Normal S2 Lungs: bilateral crackles Abdomen: Normal Bowel Sounds, Soft, No Tenderness Neurological: Normal Speech, Normal Tone Extremities: No Clubbing, No Cyanosis, No Edema, Normal Pulses Current Medications: Current Medications Sig/Tiffanie Start time Last Medication Dose Route Stop Time Status Admin Acetaminophen 650 MG Q6P PRN 08/30 0015 AC PO Albuterol Sulfate 3 ML Q4H PRN 09/05 1330 AC INH Amlodipine Besylate 10 MG DAILY 08/30 1000 AC 09/06 PO 0939 Atorvastatin Calcium 20 MG DAILY 08/30 1000 AC 09/06 PO 0939 Cholecalciferol 1,000 IU DAILY 08/30 1000 AC 09/06 PO 0939 Docusate Sodium 100 MG BID 08/30 1000 AC 09/06 PO 0939 Erythromycin 1 ANI AT BEDTIME 08/30 2200 AC 09/05 OPH 2057 Ezetimibe 10 MG DAILY 08/30 1000 AC 09/06 PO 0938 Ferrous Sulfate 325 MG BID 08/30 1000 AC 09/06 PO 0939 Heparin Sodium 5,000 UNIT Q8 08/30 0600 AC 09/06 (Porcine) SC 0548 Hydralazine HCl 100 MG BID 08/30 1000 AC 09/06 PO 0939 Isosorbide 60 MG DAILY 08/30 1000 AC 09/06 Mononitrate PO 0939 Labetalol HCl 300 MG BID 08/30 1000 AC 09/06 PO 0939 Levothyroxine Sodium 0.05 MG DAILY AC 08/30 0700 AC 09/06 PO 0548 Omeprazole 40 MG 0700,1600 08/30 0700 DC 09/05 PO 0552 Patient Medication 1 ED .STK-MED ONE 09/05 1409 [place] Teaching ED 09/05 1410 Patient Own 1 UNIT Q8P PRN 08/30 0115 08/30 Medication TOP 1946 Polyethylene Glycol 17 GM DAILY 08/30 1000 AC 09/06 PO 0939 Pregabalin 75 MG QPM 08/30 2200 AC 09/05 PO 8 Senna 187 MG DAILY 08/30 1000 AC 09/06 PO 0939 Sodium Polystyrene 60 ML ONCE ONE 09/06 1015 AC Sulfonate PO 09/06 1016 Last 24 Hrs of Lab/Jamel Results Last 24 Hrs of Labs/Mics: Laboratory Tests 09/06/16 0615: Anion Gap 15, Estimated GFR 7 L, BUN/Creatinine Ratio 14.3, Creatine Kinase 190 H 09/05/16 1500: Ur Random Creatinine Pending, U Random Total Protein Pending 09/05/16 1430: Ur Random Creatinine Cancelled, Ur Random Microalbumin Cancelled, U Random Total Protein Cancelled, U Cystine/Creat Ratio Cancelled 09/05/16 1430: Urinalysis LIGHT H, Urine Color YEL, Urine Clarity HAZY H, Urine pH 6.0, Ur Specific [place] 1.025, Urine Protein 100 H, Urine Ketones NEG, Urine Nitrite NEG, Urine Bilirubin NEG, Urine Urobilinogen 0.2, Ur Leukocyte Esterase NEG, Ur Microscopic SEDIMENT EXAMINED, Urine RBC >75 H, Urine WBC 1-3 H, Ur Epithelial Cells MANY H, Hyaline Casts FEW H, Granular Casts RARE H, Urine Hemoglobin MOD H, Urine Glucose NEG Assessment/Plan Assessment: Patient is a 86 y/o M with PMH HTN, HLD, CAD S/P CABG, hypothyroidism, CK D, anemia, GI bleed, history of colon cancer S/P resection, HFpEF, chronic pain on pain stimulator, ROBYN not on CPAP, on nighttime oxygen was admitted for worsening creatinine levels in his recent blood work. He was also being treated for balance issues and hallucinations by his PCP. Assessment and plan: 1. 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 Initial thought was that his creatinine might get better with the placement of Mims. However creatinine has been worsening, no clear evidence of nephrotoxic insults. * Creatinine worsened to 7.6 this a.m. We will discuss with nephrology regarding putting in a dialysis catheter as patient will likely need dialysis * Potassium increased 5.5 , one dose of Kayexalate given. * Repeat UA showed hematuria, some epithelial cells, a few hyaline casts. * CK level ordered to rule out myoglobinuria * Mims catheter continued * Holding Lasix for now * Avoid nephrotoxic medications * Urine protein, creatinine and microalbumin sent * We will check SPEP and [place] Lambda free light chains * Nephrology on board 2. Aspiration pneumonia : Still continues to require 3 L of oxygen * No white count, afebrile * We'll check a chest x-ray to rule out flash pulmonary edema as chest sounds crackly and diuretics are on hold. * IV unasyn was started but cr increased, iv unasyn stopped after 1 day, due to worsening of creatinine 3. Hypertension: Stable * Continue labetalol, hydralazine and amlodipine * Holding Lasix for kidney injury * Continue all other home meds 4. Postherpetic neuralgia * Patient on Lyrica for pain control 5. Hallucinations: Resolved * Working with PT for balance problems 6. 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 Renal cysts on CT. Normal-size kidneys. * Creatinine 2.4 in June 2016 * Was on temporary dialysis before * Professional Services Consultant is Dr. Zack Cross ([phone]) * hyperkalemia today of 5.4. Diet - Heart healthy Diet DVT prophylaxis-ALP S/heparin Code Status -Full Code Problem List: 1. GURPREET (acute kidney injury) 2. Aspiration pneumonia Pain Ratin Pain Location: na Pain Goal: Remain pain free Pain Plan: tylenol Tomorrow's Labs & Rationales: bep... gurpreet on ckd
--- NOTE | 2016-09-06 10:32 | PN- Nephrology ---
See Addendum Assessment/Plan Assessment: GURPREET - Unfortunately continues to rise. He has had urinary retention during this hospitalization as well as in the past, however, whereas his creatinine had improved during prior hospitalizations, it has not improved here. There have been no clear hemodynamic insults or nephrotoxic meds. He has had no peripheral eosinophilia (absolute eosinophil count low). And I think that his volume status seems reasonable and he does not clearly need IVF - his diuretic is being held. His cardiac function was normal in October of last year and I don't think that it needs to be repeated. He has hematuria which has only developed with the placement of 2 cruz catheters - I doubt that this is a GN although it would be reasonable to send serologies. Unfortunately with the rising creatinine and confusion, I think that initiating dialysis would be warranted - I will need to discuss this with his . Hallucinations - These had resolved although he is confused today. He continues to get Lyrica although it was thought that this may have been contributing. 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 I suspect that the renal cysts are acquired rather than the underlying cause of his CKD as his kidneys are normal in size and he is 86 years old. Suggestion: -I will discuss initiation of dialysis with the patient's -Please send urine protein, creatinine, microalbumin -Please send urine sodium, urea, creatinine -Cont to hold diuretics -Please send DORA, dsDNA, C3, C4, HIV, MPO and PR3 ANCA, and anti-GBM -Please send SPEP and [place] Lambda Free Light Chains Will continue to follow. Please call [phone] with ?'s Subjective Subjective: SCr continues to increase - now 7.6 Pt unable to tell me that he is in [facility] and thinks that it's October 1949 No issues breathing PPI (home med) stopped Objective Vital Signs and I&Os Vital Signs Date Time Temp Pulse Resp B/P Pulse O2 O2 Flow FiO2 Ox Delivery Rate 09/06 938 80 162/70 09/06 938 162/70 09/06 938 80 162/70 09/06 938 80 162/09/06 98.1 66 20 140/68 93 Nasal 2.0L Cannula 09/06 0000 92 Nasal 3.0L Cannula 09/05 2056 68 140/70 09/05 2056 68 140/70 09/05 1636 92 Nasal 3.0L Cannula 09/05 1356 98.2 87 20 130/70 90 06 1040 134/68 09/05 1039 134/68 Intake & Output 09/06 1600 09/06 0400 09/05 1600 09/05 0400 09/04 1600 09/04 0400 Intake Total 400 250 700 240 650 425 Output Total 100 040 877 7882 550 Balance 400 150 100 -160 -450 -125 Intake, IV 10 Intake, Oral 400 250 700 240 640 425 Output, Urine 100 098 247 6625 550 Physical Exam: Gen - OK appearing HEENT - supple CV - RRR Chest - some scant crackles Abd - soft, nontender Ext - trace L>R edema Skin - no rash Neuro - not oriented to place or time Current Medications: Current Medications Sig/Tiffanie Start time Last Medication Dose Route Stop Time Status Admin Acetaminophen 650 MG Q6P PRN 08/30 0015 AC PO Albuterol Sulfate 3 ML Q4H PRN 09/05 1330 AC INH Amlodipine Besylate 10 MG DAILY 08/30 1000 AC 09/06 PO 0939 Atorvastatin Calcium 20 MG DAILY 08/30 1000 AC 09/06 PO 0939 Cholecalciferol 1,000 IU DAILY 08/30 1000 AC 09/06 PO 0939 Docusate Sodium 100 MG BID 08/30 1000 AC 09/06 PO 0939 Erythromycin 1 ANI AT BEDTIME 08/30 2200 AC 09/05 OPH 2058 Ezetimibe 10 MG DAILY 08/30 1000 AC 09/06 PO 0938 Ferrous Sulfate 325 MG BID 08/30 1000 AC 09/06 PO 0939 Heparin Sodium 5,000 UNIT Q8 08/30 0600 AC 09/06 (Porcine) SC 0548 Hydralazine HCl 100 MG BID 08/30 1000 AC 09/06 PO 0939 Isosorbide 60 MG DAILY 08/30 1000 AC 09/06 Mononitrate PO 0939 Labetalol HCl 300 MG BID 08/30 1000 AC 09/06 PO 0939 Levothyroxine Sodium 0.05 MG DAILY AC 08/30 0700 AC 09/06 PO 0548 Omeprazole 40 MG 0700,1600 08/30 0700 DC 09/05 PO 0552 Patient Medication 1 ED .STK-MED ONE 09/05 1409 CA Teaching ED 09/05 1410 Patient Own 1 UNIT Q8P PRN 08/30 0115 AC 08/30 Medication TOP 1946 Polyethylene Glycol 17 GM DAILY 08/30 1000 AC 09/06 PO 0939 Pregabalin 75 MG QPM 08/30 2200 AC 09/05 PO 8 Senna 187 MG DAILY 08/30 1000 AC 09/06 PO 0939 Sodium Polystyrene 60 ML ONCE ONE 09/06 1015 DC Sulfonate PO 09/06 1016 Results Pertinent Lab Results: Laboratory Tests 09/06 09/05 09/05 0615 1500 1430 Chemistry Sodium (137 - 145 mmol/L) 135 L Potassium (3.5 - 5.1 mmol/L) 5.5 H Chloride (98 - 107 mmol/L) 99 Carbon Dioxide (22 - 30 mmol/L) 22 Anion Gap (5 - 16) 15 BUN (9 - 20 mg/dL) 109 *H Creatinine (0.7 - 1.2 mg/dL) 7.6 *H Estimated GFR (>60 ml/min) 7 L BUN/Creatinine Ratio (7 - 25 %) 14.3 Creatine Kinase (55 - 170 U/L) 190 H Urines Ur Random Creatinine Pending Cancelled Ur Random Microalbumin Cancelled U Random Total Protein Pending Cancelled U Cystine/Creat Ratio Cancelled 09/05 09/05 1430 0737 Chemistry Sodium (137 - 145 mmol/L) 138 Potassium (3.5 - 5.1 mmol/L) 5.4 H Chloride (98 - 107 mmol/L) 99 Carbon Dioxide (22 - 30 mmol/L) 23 Anion Gap (5 - 16) 16 BUN (9 - 20 mg/dL) 96 H Creatinine (0.7 - 1.2 mg/dL) 6.9 *H Estimated GFR (>60 ml/min) 8 L BUN/Creatinine Ratio (7 - 25 %) 13.9 Hematology CBC w Diff NO MAN DIFF REQ WBC (4.8 - 10.8 /CUMM) 5.4 RBC (4.70 - 6.10 /CUMM) 2.97 L Hgb (14.0 - 18.0 G/DL) 8.8 L Hct (42 - 52 %) 26.4 L MCV (80.0 - 94.0 FL) 88.8 MCH (27.0 - 31.0 PG) 29.7 RDW (11.5 - 14.5 %) 13.7 Plt Count (130 - 400 /CUMM) 114 L MPV (7.4 - 10.4 FL) 8.6 Gran % (42.2 - 75.2 %) 82.3 H Lymphocytes % (20.5 - 51.1 %) 6.0 L Monocytes % (1.7 - 9.3 %) 9.5 H Eosinophils % (0 - 5 %) 2.0 Basophils % (0.0 - 2.0 %) 0.2 Absolute Granulocytes (1.4 - 6.5 /CUMM) 4.5 Absolute Lymphocytes (1.2 - 3.4 /CUMM) 0.3 L Absolute Monocytes (0.10 - 0.60 /CUMM) 0.5 Absolute Eosinophils (0.0 - 0.7 /CUMM) 0.1 Absolute Basophils (0.0 - 0.2 /CUMM) 0 PUBS MCHC (33.0 - 37.0 G/DL) 33.5 Urines Urinalysis LIGHT H Urine Color (YEL,AMB,STR) YEL Urine Clarity (CLEAR) HAZY H Urine pH (5.0 - 8.0) 6.0 Ur Specific [place] (1.001 - 1.035) 1.025 Urine Protein (NEG,<30 MG/DL) 100 H Urine Ketones (NEG) NEG Urine Nitrite (NEG) NEG Urine Bilirubin (NEG) NEG Urine Urobilinogen (0.1 - 1.0 EU/dl) 0.2 Ur Leukocyte Esterase (NEG) NEG Ur Microscopic SEDIMENT EXAMINED Urine RBC (0 - 5 /HPF) >75 H Urine WBC (0 - 2 /HPF) 1-3 H Ur Epithelial Cells (NONE,FEW) MANY H Hyaline Casts (0/LPF) FEW H Granular Casts (NONE /LPF) RARE H Urine Hemoglobin (NEG) MOD H Urine Glucose (N MG/DL) NEG 03/06 03/05 0600 0620 Chemistry Sodium (137 - 145 mmol/L) 137 Potassium (3.5 - 5.1 mmol/L) 5.2 H Chloride (98 - 107 mmol/L) 102 Carbon Dioxide (22 - 30 mmol/L) 23 Anion Gap (5 - 16) 11 BUN (9 - 20 mg/dL) 90 H Creatinine (0.7 - 1.2 mg/dL) 6.4 *H Estimated GFR (>60 ml/min) 8 L BUN/Creatinine Ratio (7 - 25 %) 14.1 Prot Electrophoresis Pending Total Protein (PEP) Pending Albumin % (PEP) Pending Mogsb-4-Ltuttrswp Pending Haciz-7-Rpolyvinf Pending Olpy-8-Ysdswhsw Pending Glnk-2-Wqjjnoqb Pending Gamma Globulins Pending Abnorm Protein Band 1 Pending Abnorm Protein Band 2 Pending Abnorm Protein Band 3 Pending Hematology CBC w Diff NO MAN DIFF REQ WBC (4.8 - 10.8 /CUMM) 4.8 RBC (4.70 - 6.10 /CUMM) 3.11 L Hgb (14.0 - 18.0 G/DL) 9.4 L Hct (42 - 52 %) 27.8 L MCV (80.0 - 94.0 FL) 89.4 MCH (27.0 - 31.0 PG) 30.1 RDW (11.5 - 14.5 %) 13.8 Plt Count (130 - 400 /CUMM) 118 L MPV (7.4 - 10.4 FL) 8.8 Gran % (42.2 - 75.2 %) 79.3 H Lymphocytes % (20.5 - 51.1 %) 8.5 L Monocytes % (1.7 - 9.3 %) 8.3 Eosinophils % (0 - 5 %) 3.9 Basophils % (0.0 - 2.0 %) 0 L Absolute Granulocytes (1.4 - 6.5 /CUMM) 3.8 Absolute Lymphocytes (1.2 - 3.4 /CUMM) 0.4 L Absolute Monocytes (0.10 - 0.60 /CUMM) 0.4 Absolute Eosinophils (0.0 - 0.7 /CUMM) 0.2 Absolute Basophils (0.0 - 0.2 /CUMM) 0 PUBS MCHC (33.0 - 37.0 G/DL) 33.7 Miscellaneous Ref Lab Test Result Pending Imaging/Other Studies: EXAM TYPE: RAD - XRY-PORTABLE CHEST XRAY EXAMINATION: XR PORTABLE CHEST CLINICAL INFORMATION: Evaluate for pulmonary pathology COMPARISON: Multiple chest x-rays most recent prior dated 08/30/2016 TECHNIQUE: Portable AP view of the chest was obtained. FINDINGS: Status post median sternotomy and CABG. Stable cardiomegaly. Mild central pulmonary vascular congestion. Stable low left lung volume with moderate elevation of the left hemidiaphragm. Increasing streaky opacity noted in the left base. Mild blunting of the left costophrenic sulcus may represent trace fluid or pleural thickening. Streaky atelectasis right base.. IMPRESSION: 1. Streaky atelectasis or infiltrate left base. 2. Persistent elevation of the left hemidiaphragm. 3. Minor subsegmental atelectasis right base. EXAM TYPE: US - US-RENAL/KIDNEY EXAMINATION: US RETROPERITONEAL COMPLETE (RENAL) CLINICAL INFORMATION: 86-year-old male with acute kidney injury. Suspected obstruction. COMPARISON: CT of the abdomen and pelvis done on 10/20/2015. TECHNIQUE: Real-time imaging of the kidneys and bladder. FINDINGS: RIGHT KIDNEY: 10.6 x 4.3 x 4.9 cm (SAG x AP x TRV). Marked diffuse cortical thinning is noted throughout the entire right kidney without evidence of any hydronephrosis. There are 3 cortical renal cysts identified, the largest seen at the inferior pole, measures 3.6 x 2.0 x 2.8 cm. The second smaller cortical cyst is noted at the mid pole, measures 2.1 x 1.9 x 2.0 cm. The superior polar cyst measures 1.8 x 1.6 x 1.8 cm. LEFT KIDNEY: 11.1 x 6.0 x 6.3 cm (SAG x AP x TRV). Moderate diffuse cortical thinning is present with no evidence of any hydronephrosis. Superimposed multiple cystic abnormalities are present, one at the upper pole measures 2.0 x 1.8 x 2.5 cm, while the cystic abnormality seen at the mid pole measures 2.5 x 2.0 x 2.1 cm. BLADDER: Bladder is decompressed. There is a Cruz catheter present. IMPRESSION: 1. Bilateral normal size kidneys with evidence of marked diffuse cortical thinning on the right and moderate diffuse cortical thinning on the left with superimposed multiple cystic abnormalities, as described above. 2. No sonographic evidence of hydronephrosis on either side.
--- NOTE | 2016-09-06 11:04 | RADIOLOGY REPORT ---
EXAMINATION: XR PORTABLE CHEST CLINICAL INFORMATION: Shortness of breath. Follow-up x-ray for aspiration pneumonia and question CHF. COMPARISON: Several prior chest x-rays, most recent of which is dated 09/02/2016. TECHNIQUE: Portable AP semierect view of the chest was obtained. FINDINGS: Evaluation is limited by motion artifact. Median sternotomy wires, enlarged heart and volume loss in left lung base again seen with elevation of the left hemidiaphragm and patchy parenchymal opacity in the left lung base. Allowing for differences in technique, no interval change is seen. There is persistent central vascular congestion and patchy parenchymal opacity in the right lung base, likely representing mild subsegmental atelectasis. No pulmonary edema or pneumothorax is seen. Bony structures to the extent seen are unremarkable. IMPRESSION: 1. Limited assessment due to motion artifact. 2. No significant interval change is seen in the elevation of the left hemidiaphragm with left basilar volume loss and consolidation. 3. Mild right basilar subsegmental atelectasis. 4. Mild central vascular congestion. No overt edema.
[2016-09-06 14:41] VITALS: BP 130/70
[2016-09-06 20:47] LABS: PT 11.3 SEC (9.4-12.5)
[2016-09-06 23:22] VITALS: BP 144/68
[2016-09-07 06:57] VITALS: BP 127/60
[2016-09-07 09:00] LABS: ABSOLUTE BASOPHIL COUNT 0 /CUMM (0.0-0.2); ABSOLUTE EOSINOPHIL COUNT 0.1 /CUMM (0.0-0.7); ABSOLUTE GRANULOCYTE CT 3.4 /CUMM (1.4-6.5); ABSOLUTE LYMPH COUNT 0.3 /CUMM (1.2-3.4); ABSOLUTE MONOCYTE COUNT 0.4 /CUMM (0.10-0.60); BASOPHIL % 0.2 % (0.0-2.0); EOSINOPHIL % 1.5 % (0-5); GRANULOCYTE % 82.1 % (42.2-75.2); HEMATOCRIT 25.8 % (42-52); MEAN CORPUSCULAR HGB 29.5 PG (27.0-31.0); MEAN CORPUSCULAR HGB CONC 33.9 G/DL (33.0-37.0); MEAN PLATELET VOLUME 8.9 FL (7.4-10.4); PLATELET COUNT 128 /CUMM (130-400); RBC DISTRIBUTION WIDTH 13.5 % (11.5-14.5); RED BLOOD CELL CT 2.97 /CUMM (4.70-6.10); WHITE BLOOD CELL COUNT 4.1 /CUMM (4.8-10.8)
--- NOTE | 2016-09-07 10:47 | ULTRASOUND REPORT ---
CLINICAL HISTORY: 86-year-old male with acute on chronic kidney disease, now requiring hemodialysis. PROCEDURES: 1. Real-time ultrasound guided access into the right internal jugular vein after documentation of selected vessel patency, and permanent imaging storing in the patient records. 2. Placement of a tunneled 23 cm cm dual lumen central venous catheter. PHYSICIANS: Dr. Rahul Duenas MEDICATIONS: Lidocaine 1% 15mL SQ. Antibiotics: [None] For additional details, please see nursing flow sheet. COMPLICATIONS: None. ESTIMATED BLOOD LOSS: < 5 mL SPECIMENS: None. CONTRAST: None. FLUOROSCOPY TIME: 2.5 minutes PROCEDURE NOTE: The procedure, risks, benefits, and alternatives were carefully explained to the patient and written informed consent was obtained. The patient was placed supine on the fluoroscopy table. A time out was performed. The neck and upper chest was prepped and draped in usual sterile fashion. Local anesthesia was administered to the access site with Lidocaine. The right internal jugular vein was accessed using ultrasound with a 5 F Micropuncture set. A 0.018 wire was advanced into the high right atrium for measuring purposes. The 0.018in wire was subsequently exchanged for a 0.035 in short Amplatz that was advanced to the IVC to maintain access during the tunneling process. Next, subcutaneous Lidocaine was administered to the chest, and a subcutaneous tunnel that connects to the venotomy site was created using blunt dissection. The dialysis catheter was sized for the correct tunnel length. The catheter was then pulled through the tunnel. The micropuncture set sheath in the IJ was exchanged over the wire for sequential dilators and lastly a peel-away sheath. The inner dilator and J wire removed, and the catheter was advanced through the sheath. The sheath was peeled away. The catheter was tested, flushed, and sutured to the skin with its tip in the high right atrium. The catheter ports were packed with heparin per routine protocol. The venotomy site in the right neck was closed with a 2-0 nylon suture. The catheter was secured to the chest wall with a 2-0 nylon suture. FINDINGS: 1. Patent right internal jugular vein. 2. Tip of catheter in the high right atrium. 3. Catheter flushes and aspirates very well with a 10mL syringe. 4. No pneumothorax. IMPRESSION: Successful and uncomplicated placement of a right internal jugular 16 [place] 23 cm hemodialysis catheter. PLAN: The patient was stable after the procedure and was transferred to the floor. The patient was maintained on 5 L of nasal oxygen with oxygen saturations ranging from 88-91 throughout the procedure. There was no significant change throughout the procedure. The patient was stable throughout the procedure. The catheter may be used immediately. The suture at the neck may be removed in 5-7 days and the suture securing the catheter should remain in place for 4 weeks or greater.
--- NOTE | 2016-09-07 13:10 | PN- Nephrology ---
Assessment/Plan Assessment: GURPREET - Continues to rise. He has had urinary retention during this hospitalization as well as in the past, however, whereas his creatinine had improved during prior hospitalizations, it has not improved here. There have been no clear hemodynamic insults or nephrotoxic meds. He has had no peripheral eosinophilia (absolute eosinophil count low). And I think that his volume status seems reasonable and he does not clearly need IVF - his diuretic is being held. His cardiac function was normal in October of last year and I don't think that it needs to be repeated. He has hematuria which has only developed with the placement of 2 cruz catheters - I doubt that this is a GN although it would be reasonable to send serologies. AMANDA cath placed this AM with plan for dialysis this afternoon. I am not convinced that his kidneys are "end-stage" - because his urinary retention may have significantly contributed to his kidney injury, I do think that it's worth getting Urology input on management, especially if he leaves with significant UOP. Hallucinations - These had resolved although he is confused today. He continues to get Lyrica although it was thought that this may have been contributing. 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 I suspect that the renal cysts are acquired rather than the underlying cause of his CKD as his kidneys are normal in size and he is 86 years old. Suggestion: -Initiation of dialysis today -Plan for dialysis today, tomorrow, and Monday -Would resend UA -Would make sure to send (if not already sent) - C3, C4, MPO and PR3 ANCA, and anti-GBM -Would consult Urology given urinary retention - this may have contributed to kidney injury which I am not convinced is permanent - he may need to go home with a catheter if he remains with good UOP Will continue to follow. Please call [phone] with ?'s [phone] Subjective Subjective: SCr up to 8.6 AMANDA cath placed this AM Hg 8.7 Other labs: KLFLC Ratio 1.64 Hep B Ag Neg Hep C Ab Neg HIV NR DORA neg Objective Vital Signs and I&Os Vital Signs Date Time Temp Pulse Resp B/P Pulse O2 O2 Flow FiO2 Ox Delivery Rate 09/07 1043 160/86 09/07 1043 160/86 09/07 1043 160/86 09/07 1042 80 160/86 03/08 0800 Nasal 4.0L Cannula 03/08 0657 97.8 77 20 127/60 91 Nasal 4.0L Cannula 09/07 0000 92 Nasal 4.0L Cannula 09/06 2322 98.0 69 20 144/68 91 Nasal 4.0L Cannula 09/06 2038 69 144/68 09/06 1706 94 Nasal 3.0L Cannula 09/06 1441 97.7 80 20 130/70 93 Intake & Output 09/07 1600 09/07 0400 09/06 1600 09/06 0400 09/05 1600 09/05 0400 Intake Total 120 250 640 250 700 240 Output Total 475 150 500 100 600 400 Balance -355 100 140 150 100 -160 Intake, IV 10 Intake, Oral 120 240 640 250 700 240 Output, Urine 475 150 500 100 600 400 Physical Exam: Gen - lethargic HEENT - supple CV - RRR Chest - poor inspiratory effort Abd - soft, nontender Ext - no significant edema Skin - no rash Neuro - lethargic Access - R chest wall tunneled dialysis catheter Current Medications: Current Medications Sig/Tiffanie Start time Last Medication Dose Route Stop Time Status Admin Acetaminophen 650 MG Q6P PRN 08/30 0015 AC PO Albuterol Sulfate 3 ML Q4H PRN 09/05 1330 AC 09/07 INH 1030 Amlodipine Besylate 10 MG DAILY 08/30 1000 AC 09/07 PO 1043 Atorvastatin Calcium 20 MG DAILY 08/30 1000 AC 09/07 PO 1043 Cholecalciferol 1,000 IU DAILY 08/30 1000 AC 09/07 PO 1042 Docusate Sodium 100 MG BID 08/30 1000 AC 09/07 PO 1043 Erythromycin 1 ANI AT BEDTIME 08/30 2200 AC 09/06 OPH 2035 Ezetimibe 10 MG DAILY 08/30 1000 AC 09/07 PO 1042 Fentanyl Citrate 0 .STK-MED ONE 09/07 0902 DC .ROUTE Ferrous Sulfate 325 MG BID 08/30 1000 AC 09/07 PO 1043 Furosemide 40 MG ONCE ONE 09/06 1600 DC 09/06 IV PUSH 09/06 1601 1713 Heparin Sodium 0 .STK-MED ONE 09/07 0756 DC (Porcine) IV Heparin Sodium 5,000 UNIT Q8 08/30 0600 AC 09/06 (Porcine) SC 2037 Hydralazine HCl 100 MG BID 08/30 1000 AC 09/07 PO 1043 Isosorbide 60 MG DAILY 08/30 1000 AC 09/07 Mononitrate PO 1043 Labetalol HCl 300 MG BID 08/30 1000 AC 09/07 PO 1042 Levothyroxine Sodium 0.05 MG DAILY AC 08/30 0700 AC 09/07 PO 0506 Lidocaine 0 .STK-MED ONE 09/07 0756 DC .ROUTE Lidocaine/Epinephrine 0 .STK-MED ONE 09/07 0756 DC .ROUTE Patient Medication 1 ED .STK-MED ONE 09/06 1415 DC Teaching ED 09/06 141 Patient Own 1 UNIT Q8P PRN 08/30 0115 AC 08/30 Medication TOP 1946 Polyethylene Glycol 17 GM DAILY 08/30 1000 AC 09/07 PO 104 Pregabalin 75 MG QPM 08/30 2200 DC 09/06 PO 2037 Senna 187 MG DAILY 08/30 1000 AC 09/07 PO 1043 Results Pertinent Lab Results: Laboratory Tests 09/0715 Chemistry Sodium (137 - 145 mmol/L) 138 135 L Potassium (3.5 - 5.1 mmol/L) 5.5 H 5.5 H Chloride (98 - 107 mmol/L) 100 99 Carbon Dioxide (22 - 30 mmol/L) 22 22 Anion Gap (5 - 16) 16 15 BUN (9 - 20 mg/dL) 120 *H 109 *H Creatinine (0.7 - 1.2 mg/dL) 8.6 *H 7.6 *H Estimated GFR (>60 ml/min) 6 L 7 L BUN/Creatinine Ratio (7 - 25 %) 14.0 14.3 Creatine Kinase (55 - 170 U/L) 190 H Coagulation PT (9.4 - 12.5 SEC) 11.3 INR (0.90 - 1.17) 1.08 Hematology CBC w Diff NO MAN DIFF REQ WBC (4.8 - 10.8 /CUMM) 4.1 L RBC (4.70 - 6.10 /CUMM) 2.97 L Hgb (14.0 - 18.0 G/DL) 8.7 L Hct (42 - 52 %) 25.8 L MCV (80.0 - 94.0 FL) 87.0 MCH (27.0 - 31.0 PG) 29.5 RDW (11.5 - 14.5 %) 13.5 Plt Count (130 - 400 /CUMM) 128 L MPV (7.4 - 10.4 FL) 8.9 Gran % (42.2 - 75.2 %) 82.1 H Lymphocytes % (20.5 - 51.1 %) 7.0 L Monocytes % (1.7 - 9.3 %) 9.2 Eosinophils % (0 - 5 %) 1.5 Basophils % (0.0 - 2.0 %) 0.2 Absolute Granulocytes (1.4 - 6.5 /CUMM) 3.4 Absolute Lymphocytes (1.2 - 3.4 /CUMM) 0.3 L Absolute Monocytes (0.10 - 0.60 /CUMM) 0.4 Absolute Eosinophils (0.0 - 0.7 /CUMM) 0.1 Absolute Basophils (0.0 - 0.2 /CUMM) 0 PUBS MCHC (33.0 - 37.0 G/DL) 33.9 Serology HIV 1&2 Ab Western Blot (NONREACTIVE) NONREACTIVE 09/06 09/05 09/05 0600 1500 1430 Immunology DORA Titer ND Anti-Nuclear Antibody (NEG,1:40) NEG 1:40 IFA ASSAY Urines Ur Random Creatinine (mg/dL) 139 Cancelled Ur Random Microalbumin Cancelled U Random Total Protein (0 - 12 mg/dL) 96 H Cancelled Protein/Creatinin Ratio (< 0.2) 0.70 H U Cystine/Creat Ratio Cancelled 09/05 09/05 1430 0737 Chemistry Sodium (137 - 145 mmol/L) 138 Potassium (3.5 - 5.1 mmol/L) 5.4 H Chloride (98 - 107 mmol/L) 99 Carbon Dioxide (22 - 30 mmol/L) 23 Anion Gap (5 - 16) 16 BUN (9 - 20 mg/dL) 96 H Creatinine (0.7 - 1.2 mg/dL) 6.9 *H Estimated GFR (>60 ml/min) 8 L BUN/Creatinine Ratio (7 - 25 %) 13.9 Hematology CBC w Diff NO MAN DIFF REQ WBC (4.8 - 10.8 /CUMM) 5.4 RBC (4.70 - 6.10 /CUMM) 2.97 L Hgb (14.0 - 18.0 G/DL) 8.8 L Hct (42 - 52 %) 26.4 L MCV (80.0 - 94.0 FL) 88.8 MCH (27.0 - 31.0 PG) 29.7 RDW (11.5 - 14.5 %) 13.7 Plt Count (130 - 400 /CUMM) 114 L MPV (7.4 - 10.4 FL) 8.6 Gran % (42.2 - 75.2 %) 82.3 H Lymphocytes % (20.5 - 51.1 %) 6.0 L Monocytes % (1.7 - 9.3 %) 9.5 H Eosinophils % (0 - 5 %) 2.0 Basophils % (0.0 - 2.0 %) 0.2 Absolute Granulocytes (1.4 - 6.5 /CUMM) 4.5 Absolute Lymphocytes (1.2 - 3.4 /CUMM) 0.3 L Absolute Monocytes (0.10 - 0.60 /CUMM) 0.5 Absolute Eosinophils (0.0 - 0.7 /CUMM) 0.1 Absolute Basophils (0.0 - 0.2 /CUMM) 0 PUBS MCHC (33.0 - 37.0 G/DL) 33.5 Urines Urinalysis LIGHT H Urine Color (YEL,AMB,STR) YEL Urine Clarity (CLEAR) HAZY H Urine pH (5.0 - 8.0) 6.0 Ur Specific [place] (1.001 - 1.035) 1.025 Urine Protein (NEG,<30 MG/DL) 100 H Urine Ketones (NEG) NEG Urine Nitrite (NEG) NEG Urine Bilirubin (NEG) NEG Urine Urobilinogen (0.1 - 1.0 EU/dl) 0.2 Ur Leukocyte Esterase (NEG) NEG Ur Microscopic SEDIMENT EXAMINED Urine RBC (0 - 5 /HPF) >75 H Urine WBC (0 - 2 /HPF) 1-3 H Ur Epithelial Cells (NONE,FEW) MANY H Hyaline Casts (0/LPF) FEW H Granular Casts (NONE /LPF) RARE H Urine Hemoglobin (NEG) MOD H Urine Glucose (N MG/DL) NEG 03/06 0600 Chemistry Prot Electrophoresis Pending Total Protein (PEP) Pending Albumin % (PEP) Pending Hocpz-3-Mopngglps Pending Tcjpm-9-Skvnqihlx Pending Uecs-4-Evppnbze Pending Twho-0-Sndlanry Pending Gamma Globulins Pending Abnorm Protein Band 1 Pending Abnorm Protein Band 2 Pending Abnorm Protein Band 3 Pending Miscellaneous Ref Lab Test Result (()) REPORT Imaging/Other Studies: EXAM TYPE: RAD - XRY-PORTABLE CHEST XRAY EXAMINATION: XR PORTABLE CHEST CLINICAL INFORMATION: Shortness of breath. Follow-up x-ray for aspiration pneumonia and question CHF. COMPARISON: Several prior chest x-rays, most recent of which is dated 09/02/2016. TECHNIQUE: Portable AP semierect view of the chest was obtained. FINDINGS: Evaluation is limited by motion artifact. Median sternotomy wires, enlarged heart and volume loss in left lung base again seen with elevation of the left hemidiaphragm and patchy parenchymal opacity in the left lung base. Allowing for differences in technique, no interval change is seen. There is persistent central vascular congestion and patchy parenchymal opacity in the right lung base, likely representing mild subsegmental atelectasis. No pulmonary edema or pneumothorax is seen. Bony structures to the extent seen are unremarkable. IMPRESSION: 1. Limited assessment due to motion artifact. 2. No significant interval change is seen in the elevation of the left hemidiaphragm with left basilar volume loss and consolidation. 3. Mild right basilar subsegmental atelectasis. 4. Mild central vascular congestion. No overt edema.
[2016-09-07 14:18] VITALS: BP 117/63
--- NOTE | 2016-09-07 16:10 | PN- Housestaff ---
Subjective Follow-up For: Acute and chronic kidney injury Aspiration pneumonia Complaints: no complaints Subjective: Creatinine worsening this am,patient is scheduled for a dialysis session today. Review of Systems Constitutional: Reports: no symptoms. EENTM: Reports: no symptoms. Cardiovascular: Reports: no symptoms. Respiratory: Reports: no symptoms. Gastrointestinal: Reports: no symptoms. Genitourinary: Reports: no symptoms. Musculoskeletal: Reports: no symptoms. Skin: Reports: no symptoms. Neurological/Psychological: Reports: no symptoms. Objective Last 24 Hrs of Vital Signs/I&O Vital Signs Date Time Temp Pulse Resp B/P Pulse O2 O2 Flow FiO2 Ox Delivery Rate 09/07 1418 98.2 68 17 117/63 90 09/07 1045 92 Nasal 4.0L Cannula 09/07 1043 160/86 09/07 1043 160/86 09/07 1043 160/86 09/07 1042 80 160/86 09/07 0800 Nasal 4.0L Cannula 09/07 0657 97.8 77 20 127/60 91 Nasal 4.0L Cannula 09/07 0000 92 Nasal 4.0L Cannula 09/06 2322 98.0 69 20 144/68 91 Nasal 4.0L Cannula 09/06 2038 69 144/68 07 1706 94 Nasal 3.0L Cannula Intake & Output 09/07 1600 08 0800 08 0000 Intake Total 120 0 250 Output Total 300 175 150 Balance -180 -175 100 Intake, IV 10 Intake, Oral 120 0 240 Number 1 Bowel Movements Output, Urine 300 175 150 Physical Exam General Appearance: not alert and oriented, appears confused Skin: No Rashes, No Breakdown HEENT: Atraumatic, PERRLA, EOMI Neck: Supple, No JVD Lymphatic: Cervical nl Cardiovascular: Regular Rate, Normal S1, Normal S2 Lungs: bibasilar crackles Abdomen: Normal Bowel Sounds, Soft, No Tenderness Neurological: Normal Speech, Normal Tone Extremities: No Clubbing, No Cyanosis, No Edema Current Medications: Current Medications Sig/Tiffanie Start time Last Medication Dose Route Stop Time Status Admin Acetaminophen 650 MG Q6P PRN 08/30 0015 AC PO Albuterol Sulfate 3 ML Q4H PRN 09/05 1330 AC 09/07 INH 1406 Amlodipine Besylate 10 MG DAILY 08/30 1000 AC 09/07 PO 1043 Atorvastatin Calcium 20 MG DAILY 08/30 1000 AC 09/07 PO 1043 Cholecalciferol 1,000 IU DAILY 08/30 1000 AC 09/07 PO 1042 Docusate Sodium 100 MG BID 08/30 1000 AC 09/07 PO 1043 Erythromycin 1 ANI AT BEDTIME 08/30 2200 AC 09/06 OPH 2035 Ezetimibe 10 MG DAILY 08/30 1000 AC 09/07 PO 1042 Fentanyl Citrate 0 .STK-MED ONE 09/07 0902 DC .ROUTE Ferrous Sulfate 325 MG BID 08/30 1000 AC 09/07 PO 1043 Heparin Sodium 0 .STK-MED ONE 09/07 0756 DC (Porcine) IV Heparin Sodium 5,000 UNIT Q8 08/30 0600 AC 09/07 (Porcine) SC 1339 Hydralazine HCl 100 MG BID 08/30 1000 AC 09/07 PO 1043 Isosorbide 60 MG DAILY 08/30 1000 AC 09/07 Mononitrate PO 1043 Labetalol HCl 300 MG BID 08/30 1000 AC 09/07 PO 1042 Levothyroxine Sodium 0.05 MG DAILY AC 08/30 0700 AC 09/07 PO 0506 Lidocaine 0 .STK-MED ONE 09/07 0756 DC .ROUTE Lidocaine/Epinephrine 0 .STK-MED ONE 09/07 0756 DC .ROUTE Patient Own 1 UNIT Q8P PRN 08/30 0115 AC 08/30 Medication TOP 1946 Polyethylene Glycol 17 GM DAILY 08/30 1000 AC 09/07 PO 1042 Pregabalin 75 MG QPM 08/30 2200 DC 09/06 PO 2037 Senna 187 MG DAILY 08/30 1000 AC 09/07 PO 1043 Last 24 Hrs of Lab/Jaeml Results Last 24 Hrs of Labs/Mics: Laboratory Tests 09/07/16 1508: ANCA Pending, Complement C3 Pending, Complement C4 Pending, Hepatitis A IgM Ab Pending, Hep Bs Antigen Pending, Hep B Core IgM Ab Conf Pending, Hepatitis C Antibody Pending 09/07/16 1400: Ref Lab Test Result Pending, Ref Lab Test Result Pending, Ref Lab Test Result Pending 09/07/16 0730: Anion Gap 16, Estimated GFR 6 L, BUN/Creatinine Ratio 14.0, CBC w Diff NO MAN DIFF REQ, RBC 2.97 L, MCV 87.0, MCH 29.5, RDW 13.5, MPV 8.9, Gran % 82.1 H, Lymphocytes % 7.0 L, Monocytes % 9.2, Eosinophils % 1.5, Basophils % 0.2, Absolute Granulocytes 3.4, Absolute Lymphocytes 0.3 L, Absolute Monocytes 0.4, Absolute Eosinophils 0.1, Absolute Basophils 0, PUBS MCHC 33.9 09/06/162024: PT 11.3, INR 1.08 Assessment/Plan Assessment: Patient is a 86 y/o M with PMH HTN, HLD, CAD S/P CABG, hypothyroidism, CK D, anemia, GI bleed, history of colon cancer S/P resection, HFpEF, chronic pain on pain stimulator, ROBYN not on CPAP, on nighttime oxygen was admitted for worsening creatinine levels in his recent blood work. He was also being treated for balance issues and hallucinations by his PCP. Assessment and plan: 1. 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 Initial thought was that his creatinine might get better with the placement of Mims. However creatinine has been worsening, no clear evidence of nephrotoxic insults. * Creatinine worsened to 8.6, Tal cath placement the same followed by dialysis today, tomorrow, and Monday. * Potassium increased 5.5 , one dose of Kayexalate given. * Would resend UA * Will check C3, C4, MPO and PR3 ANCA, and anti-GBM * Urology consult to r/o obstruction * Mims catheter continued * Holding Lasix for now * Avoid nephrotoxic medications * Urine protein, creatinine and microalbumin sent * We will check SPEP and [place] Lambda free light chains * Nephrology on board 2. Aspiration pneumonia : Still continues to require 3 L of oxygen * No white count, afebrile * IV unasyn was started but cr increased, iv unasyn stopped after 1 day, due to worsening of creatinine 3. Hypertension: Stable * Continue labetalol, hydralazine and amlodipine * Holding Lasix for kidney injury * Continue all other home meds 4. Postherpetic neuralgia * Patient on Lyrica for pain control 5. Hallucinations: Resolved * Working with PT for balance problems 6. 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 Renal cysts on CT. Normal-size kidneys. * Creatinine 2.4 in June 2016 * Was on temporary dialysis before * Ironer Hand is Dr. Zack Cross ([phone]) * hyperkalemia today of 5.4. Diet - Heart healthy Diet DVT prophylaxis-ALP S/heparin Code Status -Full Code Problem List: 1. GURPREET (acute kidney injury) 2. Renal failure Pain Ratin Pain Location: na Pain Goal: Remain pain free Pain Plan: tylenol Tomorrow's Labs & Rationales: bep... gurpreet on ckd
--- NOTE | 2016-09-07 16:36 | PN- Att Addend ---
Attending Addendum Attending Brief Note Attending MD Statement: examined this patient, discuss w/resident/PA/TRADE SPECIALIST, agreed w/resident/PA/TRADE SPECIALIST, reviewed EMR data (avail) Attending Assessment/Plan: Patient seen and examined. Plan of care discussed with the medical team and the patient. Available lab work and radiology test reports were reviewed. Patient denies any recent fever chills or chest pains. He underwent Tal catheter placement today. He appears lethargic and exhausted. He continues to be on oxygen currently at 4 L of oxygen by nasal cannula. Vital Signs Date Time Temp Pulse Resp B/P Pulse O2 O2 Flow FiO2 Ox Delivery Rate 09/07 1418 98.2 68 17 117/63 90 09/07 1045 92 Nasal 4.0L Cannula 09/07 1043 160/86 09/07 1043 160/86 09/07 1043 160/86 09/07 1042 80 160/86 09/07 0800 Nasal 4.0L Cannula 09/07 0657 97.8 77 20 127/60 91 Nasal 4.0L Cannula 09/07 0000 92 Nasal 4.0L Cannula 09/06 2322 98.0 69 20 144/68 91 Nasal 4.0L Cannula 09/06 2038 69 144/68 09/06 1706 94 Nasal 3.0L Cannula Intake & Output 09/07 1600 08 0800 09/07 0000 Intake Total 120 0 250 Output Total 300 175 150 Balance -180 -175 100 Intake, IV 10 Intake, Oral 120 0 240 Number 1 Bowel Movements Output, Urine 300 175 150 Exam: General: Patient is lethargic and awake alert oriented without any distress appears slightly tachypneic CVS: S1 plus S2 without any murmur or gallops Chest: Few scattered crepitation without any wheeze. There is no respiratory distress. Abdomen: Soft nontender, bowel sound present, no guarding or rebound CREDIT CARD CLERK: Awake alert oriented without any focal neuro deficit and follows command appropriately Extremities: No edema; no clubbing or cyanosis noted Laboratory Tests 09/07 09/07 09/07 1508 1400 0730 Chemistry Sodium (137 - 145 mmol/L) 138 Potassium (3.5 - 5.1 mmol/L) 5.5 H Chloride (98 - 107 mmol/L) 100 Carbon Dioxide (22 - 30 mmol/L) 22 Anion Gap (5 - 16) 16 BUN (9 - 20 mg/dL) 120 *H Creatinine (0.7 - 1.2 mg/dL) 8.6 *H Estimated GFR (>60 ml/min) 6 L BUN/Creatinine Ratio (7 - 25 %) 14.0 Hematology CBC w Diff NO MAN DIFF REQ WBC (4.8 - 10.8 /CUMM) 4.1 L RBC (4.70 - 6.10 /CUMM) 2.97 L Hgb (14.0 - 18.0 G/DL) 8.7 L Hct (42 - 52 %) 25.8 L MCV (80.0 - 94.0 FL) 87.0 MCH (27.0 - 31.0 PG) 29.5 RDW (11.5 - 14.5 %) 13.5 Plt Count (130 - 400 /CUMM) 128 L MPV (7.4 - 10.4 FL) 8.9 Gran % (42.2 - 75.2 %) 82.1 H Lymphocytes % (20.5 - 51.1 %) 7.0 L Monocytes % (1.7 - 9.3 %) 9.2 Eosinophils % (0 - 5 %) 1.5 Basophils % (0.0 - 2.0 %) 0.2 Absolute Granulocytes (1.4 - 6.5 /CUMM) 3.4 Absolute Lymphocytes (1.2 - 3.4 /CUMM) 0.3 L Absolute Monocytes (0.10 - 0.60 /CUMM) 0.4 Absolute Eosinophils (0.0 - 0.7 /CUMM) 0.1 Absolute Basophils (0.0 - 0.2 /CUMM) 0 PUBS MCHC (33.0 - 37.0 G/DL) 33.9 Immunology ANCA Pending Complement C3 Pending Complement C4 Pending Miscellaneous Ref Lab Test Result Pending Ref Lab Test Result Pending Ref Lab Test Result Pending Serology Hepatitis A IgM Ab Pending Hep Bs Antigen Pending Hep B Core IgM Ab Conf Pending Hepatitis C Antibody Pending 09/06 2024 Coagulation PT (9.4 - 12.5 SEC) 11.3 INR (0.90 - 1.17) 1.08 Chest x-ray 1. Limited assessment due to motion artifact. 2. No significant interval change is seen in the elevation of the left hemidiaphragm with left basilar volume loss and consolidation. 3. Mild right basilar subsegmental atelectasis. 4. Mild central vascular congestion. No overt edema. Assessment * Acute and chronic renal failure- unfortunately creatinine has been progressively increasing. * Rule out CHF given the patient's tachypnea * Hyperkalemia- can give a dose of Kayexalate given the potassium has progressively been increasing * Recent diagnosis of pneumonia- patient received short course of Unasyn which was discontinued due to fears of interstitial nephritis. Patient currently is afebrile. * Hypoxia- continue incentive spirometry Plan * Proceed with hemodialysis today * Recheck chemistry labs tomorrow; expect potassium level to drop with hemodialysis * Continue to monitor respiratory status; taper oxygen as tolerated
[2016-09-07 21:48] VITALS: BP 160/80
[2016-09-08 07:07] VITALS: BP 164/54
--- NOTE | 2016-09-08 10:37 | PN- Att Addend ---
Attending Addendum Attending Brief Note Patient seen and examined. Plan of care discussed with the medical team and the patient. Available lab work and radiology test reports were reviewed. Patient denies any recent fever chills or chest pains. He appears lethargic and exhausted. He continues to be on oxygen currently at 5 L of oxygen by nasal cannula. He underwent him and also yesterday. Last night as per nursing staff patient was confused. Vital Signs Date Time Temp Pulse Resp B/P Pulse O2 O2 Flow FiO2 Ox Delivery Rate 09/08 706 98.6 81 20 164/54 90 Nasal Cannula 09/08 0525 93 Nasal 5.0L Cannula 09/08 0000 90 Nasal 5.0L Cannula 09/07 2150 90 Nasal 5.0L Cannula 09/07 2148 98.6 82 20 160/80 90 Nasal 5.0L Cannula 09/07 2137 82 160/80 09/07 2137 82 160/80 09/07 1600 5.0L 09/07 1418 98.2 68 17 117/63 90 09/07 1045 92 Nasal 4.0L Cannula 09/07 1043 160/86 09/07 1043 160/86 09/07 1043 160/86 09/07 1042 80 160/86 Intake & Output 09/08 1600 09/08 0800 09/08 0000 Intake Total 700 Output Total 400 400 Balance -400 300 Intake, Oral 700 Number 1 1 1 Bowel Movements Output, Urine 400 400 Exam: General: Patient is lethargic and awake and lethargic partially oriented without any distress appears slightly tachypneic and confused CVS: S1 plus S2 without any murmur or gallops Chest: Few scattered crepitation without any wheeze. There is no respiratory distress. Abdomen: Soft nontender, bowel sound present, no guarding or rebound SLIVER HANDLER: Awake alert oriented without any focal neuro deficit and follows command appropriately Extremities: No edema; no clubbing or cyanosis noted Laboratory Tests 09/07 09/07 2047 1508 Immunology ANCA Pending Complement C3 Pending Complement C4 Pending Serology Hepatitis A IgM Ab (NONREACTIVE) NONREACTIVE Hep Bs Antigen (NONREACTIVE) NONREACTIVE Hep B Core IgM Ab Conf (NONREACTIVE) NONREACTIVE Hepatitis C Antibody (NONREACTIVE) NONREACTIVE Urines Urinalysis LIGHT H Urine Color (YEL,AMB,STR) YEL Urine Clarity (CLEAR) HAZY H Urine pH (5.0 - 8.0) 6.0 Ur Specific [place] (1.001 - 1.035) 1.020 Urine Protein (NEG,<30 MG/DL) 30 H Urine Ketones (NEG) NEG Urine Nitrite (NEG) NEG Urine Bilirubin (NEG) NEG Urine Urobilinogen (0.1 - 1.0 EU/dl) 0.2 Ur Leukocyte Esterase (NEG) NEG Ur Microscopic SEDIMENT EXAMINED Urine RBC (0 - 5 /HPF) >75 H Urine WBC (0 - 2 /HPF) RARE Ur Epithelial Cells (NONE,FEW) TRANS H Urine Hemoglobin (NEG) SMALL H Urine Glucose (N MG/DL) NEG 09/07 1400 Miscellaneous Ref Lab Test Result Pending Ref Lab Test Result Pending Ref Lab Test Result Pending Assessment * Acute and chronic renal failure- unfortunately creatinine has been progressively increasing. Patient is status post Tal catheter placement and he underwent hemodialysis as of yesterday. Plan is to repeat hematemesis today. * Rule out CHF given the patient's tachypnea and increasing hypoxia * Hyperkalemia- continue hemodialysis * Recent diagnosis of pneumonia- patient received short course of Unasyn which was discontinued due to fears of interstitial nephritis. Patient currently is afebrile. * Hypoxia- continue incentive spirometry Plan * Proceed with hemodialysis today * Recheck chemistry labs tomorrow; expect potassium level to drop with hemodialysis * Continue to monitor respiratory status; taper oxygen as tolerate; patient needs fluid removal during dialysis * Follow-up lab work which will be done during dialysis
--- NOTE | 2016-09-08 11:42 | PN- Nephrology ---
Assessment/Plan Assessment: GURPREET - Had continued to rise to the point of needing dialysis yesterday. Confusion may be 2/2 uremia. I wonder if his worsened renal function is 2/2 urinary retention. He has had urinary retention during this hospitalization as well as in the past, however, whereas his creatinine had improved during prior hospitalizations, it has not improved here. There have been no clear hemodynamic insults or nephrotoxic meds. He has had no peripheral eosinophilia (absolute eosinophil count low). He has hematuria which has only developed with the placement of 2 cruz catheters - I doubt that this is a GN although it would be reasonable to send serologies. I am not convinced that his kidneys are "end- stage" - because his urinary retention may have significantly contributed to his kidney injury, I do think that it's worth getting Urology input on management, especially if he leaves with significant UOP. Hallucinations - Current confusion may be 2/2 uremia. 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 I suspect that the renal cysts are acquired rather than the underlying cause of his CKD as his kidneys are normal in size and he is 86 years old. Suggestion: -Dialysis #2 today -Plan for dialysis #3 tomorrow -Would make sure to send (if not already sent) - C3, C4, MPO and PR3 ANCA, and anti-GBM -Would consult Urology given urinary retention - this may have contributed to kidney injury which I am not convinced is permanent - he may need to go home with a catheter if he remains with good UOP Will continue to follow. Please call [phone] with ?'s [phone] Subjective Subjective: AMANDA cath and first dialysis session yesterday Cruz remains - 400cc UOP Objective Vital Signs and I&Os Vital Signs Date Time Temp Pulse Resp B/P Pulse O2 O2 Flow FiO2 Ox Delivery Rate 09/08 1121 93 Nasal 5.0L Cannula 09/08 1030 80 160/90 09/08 1030 80 160/90 09/08 1029 80 160/90 09/08 1029 80 160/92 09/08 0707 98.6 81 20 164/54 90 Nasal Cannula 09/08 0525 93 Nasal 5.0L Cannula 09/08 0000 90 Nasal 5.0L Cannula 09/07 2150 90 Nasal 5.0L Cannula 09/07 2148 98.6 82 20 160/80 90 Nasal 5.0L Cannula 09/07 2136 82 160/80 09/07 2136 82 160/80 09/07 1600 5.0L 09/07 1418 98.2 68 17 117/63 90 Intake & Output 09/08 1600 09/08 0400 09/07 1600 09/07 0400 09/06 1600 09/06 0400 Intake Total 700 120 250 640 250 Output Total 400 400 475 150 500 100 Balance -400 300 -355 100 140 150 Intake, IV 10 Intake, Oral 700 120 240 640 250 Number 2 1 1 Bowel Movements Output, Urine 400 400 475 150 500 100 Physical Exam: Gen - OK appearing HEENT - supple CV - RRR Chest - clear anteriorly (limited exam) Abd - soft, nontender Ext - no significant edema Neuro - not oriented to place; knows the President Current Medications: Current Medications Sig/Tiffanie Start time Last Medication Dose Route Stop Time Status Admin Acetaminophen 650 MG Q6P PRN 08/30 0015 AC PO Albuterol Sulfate 3 ML Q4H PRN 09/05 1330 AC 09/07 INH 1406 Amlodipine Besylate 10 MG DAILY 08/30 1000 AC 09/08 PO 1029 Atorvastatin Calcium 20 MG DAILY 08/30 1000 AC 09/08 PO 1031 Cholecalciferol 1,000 IU DAILY 08/30 1000 AC 09/08 PO 1030 Docusate Sodium 100 MG BID 08/30 1000 AC 09/08 PO 1030 Erythromycin 1 ANI AT BEDTIME 08/30 2200 AC 09/07 OPH 2137 Ezetimibe 10 MG DAILY 08/30 1000 AC 09/08 PO 1030 Ferrous Sulfate 325 MG BID 08/30 1000 AC 09/08 PO 1027 Heparin Sodium 5,000 UNIT Q8 08/30 0600 AC 09/08 (Porcine) SD 0648 Hydralazine HCl 100 MG BID 08/30 1000 AC 09/08 PO 1030 Isosorbide 60 MG DAILY 08/30 1000 AC 09/08 Mononitrate PO 1030 Labetalol HCl 300 MG BID 08/30 1000 AC 09/08 PO 1029 Levothyroxine Sodium 0.05 MG DAILY AC 08/30 0700 AC 09/08 PO 0648 Patient Own 1 UNIT Q8P PRN 08/30 0115 AC 08/30 Medication TOP 1946 Polyethylene Glycol 17 GM DAILY 08/30 1000 AC 09/08 PO 1031 Senna 187 MG DAILY 08/30 1000 AC 09/08 PO 1030 Results Pertinent Lab Results: Laboratory Tests 09/07 09/07 2047 1508 Immunology ANCA Pending Complement C3 Pending Complement C4 Pending Serology Hepatitis A IgM Ab (NONREACTIVE) NONREACTIVE Hep Bs Antigen (NONREACTIVE) NONREACTIVE Hep B Core IgM Ab Conf (NONREACTIVE) NONREACTIVE Hepatitis C Antibody (NONREACTIVE) NONREACTIVE Urines Urinalysis LIGHT H Urine Color (YEL,AMB,STR) YEL Urine Clarity (CLEAR) HAZY H Urine pH (5.0 - 8.0) 6.0 Ur Specific [place] (1.001 - 1.035) 1.020 Urine Protein (NEG,<30 MG/DL) 30 H Urine Ketones (NEG) NEG Urine Nitrite (NEG) NEG Urine Bilirubin (NEG) NEG Urine Urobilinogen (0.1 - 1.0 EU/dl) 0.2 Ur Leukocyte Esterase (NEG) NEG Ur Microscopic SEDIMENT EXAMINED Urine RBC (0 - 5 /HPF) >75 H Urine WBC (0 - 2 /HPF) RARE Ur Epithelial Cells (NONE,FEW) TRANS H Urine Hemoglobin (NEG) SMALL H Urine Glucose (N MG/DL) NEG 09/07 09/07 09/06 1400 0730 2024 Chemistry Sodium (137 - 145 mmol/L) 138 Potassium (3.5 - 5.1 mmol/L) 5.5 H Chloride (98 - 107 mmol/L) 100 Carbon Dioxide (22 - 30 mmol/L) 22 Anion Gap (5 - 16) 16 BUN (9 - 20 mg/dL) 120 *H Creatinine (0.7 - 1.2 mg/dL) 8.6 *H Estimated GFR (>60 ml/min) 6 L BUN/Creatinine Ratio (7 - 25 %) 14.0 Coagulation PT (9.4 - 12.5 SEC) 11.3 INR (0.90 - 1.17) 1.08 Hematology CBC w Diff NO MAN DIFF REQ WBC (4.8 - 10.8 /CUMM) 4.1 L RBC (4.70 - 6.10 /CUMM) 2.97 L Hgb (14.0 - 18.0 G/DL) 8.7 L Hct (42 - 52 %) 25.8 L MCV (80.0 - 94.0 FL) 87.0 MCH (27.0 - 31.0 PG) 29.5 RDW (11.5 - 14.5 %) 13.5 Plt Count (130 - 400 /CUMM) 128 L MPV (7.4 - 10.4 FL) 8.9 Gran % (42.2 - 75.2 %) 82.1 H Lymphocytes % (20.5 - 51.1 %) 7.0 L Monocytes % (1.7 - 9.3 %) 9.2 Eosinophils % (0 - 5 %) 1.5 Basophils % (0.0 - 2.0 %) 0.2 Absolute Granulocytes (1.4 - 6.5 /CUMM) 3.4 Absolute Lymphocytes (1.2 - 3.4 /CUMM) 0.3 L Absolute Monocytes (0.10 - 0.60 /CUMM) 0.4 Absolute Eosinophils (0.0 - 0.7 /CUMM) 0.1 Absolute Basophils (0.0 - 0.2 /CUMM) 0 PUBS MCHC (33.0 - 37.0 G/DL) 33.9 Miscellaneous Ref Lab Test Result Pending Ref Lab Test Result Pending Ref Lab Test Result Pending 09/06 09/06 0615 0600 Chemistry Sodium (137 - 145 mmol/L) 135 L Potassium (3.5 - 5.1 mmol/L) 5.5 H Chloride (98 - 107 mmol/L) 99 Carbon Dioxide (22 - 30 mmol/L) 22 Anion Gap (5 - 16) 15 BUN (9 - 20 mg/dL) 109 *H Creatinine (0.7 - 1.2 mg/dL) 7.6 *H Estimated GFR (>60 ml/min) 7 L BUN/Creatinine Ratio (7 - 25 %) 14.3 Creatine Kinase (55 - 170 U/L) 190 H Immunology DORA Titer ND Anti-Nuclear Antibody (NEG,1:40) NEG 1:40 IFA ASSAY Serology HIV 1&2 Ab Western Blot (NONREACTIVE) NONREACTIVE 09/05 09/05 09/05 1500 1430 1430 Urines Urinalysis LIGHT H Urine Color (YEL,AMB,STR) YEL Urine Clarity (CLEAR) HAZY H Urine pH (5.0 - 8.0) 6.0 Ur Specific [place] (1.001 - 1.035) 1.025 Urine Protein (NEG,<30 MG/DL) 100 H Urine Ketones (NEG) NEG Urine Nitrite (NEG) NEG Urine Bilirubin (NEG) NEG Urine Urobilinogen (0.1 - 1.0 EU/dl) 0.2 Ur Leukocyte Esterase (NEG) NEG Ur Microscopic SEDIMENT EXAMINED Urine RBC (0 - 5 /HPF) >75 H Urine WBC (0 - 2 /HPF) 1-3 H Ur Epithelial Cells (NONE,FEW) MANY H Hyaline Casts (0/LPF) FEW H Granular Casts (NONE /LPF) RARE H Urine Hemoglobin (NEG) MOD H Ur Random Creatinine (mg/dL) 139 Cancelled Ur Random Microalbumin Cancelled U Random Total Protein (0 - 12 mg/dL) 96 H Cancelled Protein/Creatinin Ratio (< 0.2) 0.70 H Urine Glucose (N MG/DL) NEG U Cystine/Creat Ratio Cancelled Imaging/Other Studies: No new chest imaging Chest X-ray 09/06/16 EXAM TYPE: RAD - XRY-PORTABLE CHEST XRAY EXAMINATION: XR PORTABLE CHEST CLINICAL INFORMATION: Shortness of breath. Follow-up x-ray for aspiration pneumonia and question CHF. COMPARISON: Several prior chest x-rays, most recent of which is dated 09/02/2016. TECHNIQUE: Portable AP semierect view of the chest was obtained. FINDINGS: Evaluation is limited by motion artifact. Median sternotomy wires, enlarged heart and volume loss in left lung base again seen with elevation of the left hemidiaphragm and patchy parenchymal opacity in the left lung base. Allowing for differences in technique, no interval change is seen. There is persistent central vascular congestion and patchy parenchymal opacity in the right lung base, likely representing mild subsegmental atelectasis. No pulmonary edema or pneumothorax is seen. Bony structures to the extent seen are unremarkable. IMPRESSION: 1. Limited assessment due to motion artifact. 2. No significant interval change is seen in the elevation of the left hemidiaphragm with left basilar volume loss and consolidation. 3. Mild right basilar subsegmental atelectasis. 4. Mild central vascular congestion. No overt edema.
[2016-09-08 13:11] LABS: ABSOLUTE BASOPHIL COUNT 0 /CUMM (0.0-0.2); ABSOLUTE EOSINOPHIL COUNT 0.1 /CUMM (0.0-0.7); ABSOLUTE GRANULOCYTE CT 3.4 /CUMM (1.4-6.5); ABSOLUTE LYMPH COUNT 0.3 /CUMM (1.2-3.4); ABSOLUTE MONOCYTE COUNT 0.5 /CUMM (0.10-0.60); BASOPHIL % 0.4 % (0.0-2.0); EOSINOPHIL % 1.5 % (0-5); GRANULOCYTE % 80.2 % (42.2-75.2); HEMATOCRIT 24.7 % (42-52); MEAN CORPUSCULAR HGB 29.2 PG (27.0-31.0); MEAN CORPUSCULAR HGB CONC 33.4 G/DL (33.0-37.0); MEAN CORPUSCULAR VOLUME 87.5 FL (80.0-94.0); MEAN PLATELET VOLUME 8.7 FL (7.4-10.4); PLATELET COUNT 132 /CUMM (130-400); RBC DISTRIBUTION WIDTH 13.8 % (11.5-14.5); RED BLOOD CELL CT 2.82 /CUMM (4.70-6.10); WHITE BLOOD CELL COUNT 4.3 /CUMM (4.8-10.8)
--- NOTE | 2016-09-08 15:04 | PN- Housestaff ---
Subjective Follow-up For: Acute and chronic kidney injury Aspiration pneumonia Complaints: no complaints Subjective: Creatinine worsening this am,patient had a session of dialysis yesterday and this scheduled for another session today. Appears confused this morning. Review of Systems Constitutional: Reports: malaise, weakness. EENTM: Reports: no symptoms. Cardiovascular: Reports: no symptoms. Respiratory: Reports: short of breath. Gastrointestinal: Reports: no symptoms. Genitourinary: Reports: no symptoms. Musculoskeletal: Reports: no symptoms. Objective Last 24 Hrs of Vital Signs/I&O Vital Signs Date Time Temp Pulse Resp B/P Pulse O2 O2 Flow FiO2 Ox Delivery Rate 09/08 1121 93 Nasal 5.0L Cannula 09/08 1030 80 160/90 09/08 1030 80 160/90 09/08 1029 80 160/90 09/08 1029 80 160/92 09/08 0707 98.6 81 20 164/54 90 Nasal Cannula 09/08 0525 93 Nasal 5.0L Cannula 09/08 0000 90 Nasal 5.0L Cannula 09/07 2150 90 Nasal 5.0L Cannula 09/07 2148 98.6 82 20 160/80 90 Nasal 5.0L Cannula 09/07 2137 82 160/80 09/07 2137 82 160/80 09/07 1600 5.0L Intake & Output 09/08 1600 09/08 0800 09/08 0000 Intake Total 700 Output Total 400 400 Balance -400 300 Intake, Oral 700 Number 1 1 1 Bowel Movements Output, Urine 400 400 Physical Exam General Appearance: Alert, No Acute Distress, confused Skin: No Rashes, No Breakdown, No Significant Lesion HEENT: Atraumatic, PERRLA, EOMI Neck: Supple, No JVD Lymphatic: Cervical nl Cardiovascular: Regular Rate, Normal S1, Normal S2, No Murmurs Lungs: bilateral bases Abdomen: Normal Bowel Sounds, Soft, No Tenderness Neurological: Normal Speech, Normal Tone, Sensation Intact Extremities: No Clubbing, No Cyanosis, No Edema Current Medications: Current Medications Sig/Tiffanie Start time Last Medication Dose Route Stop Time Status Admin Acetaminophen 650 MG Q6P PRN 08/30 0015 AC PO Albuterol Sulfate 3 ML Q4H PRN 09/05 1330 AC 09/07 INH 1406 Amlodipine Besylate 10 MG DAILY 08/30 1000 AC 09/08 PO 1029 Atorvastatin Calcium 20 MG DAILY 08/30 1000 AC 09/08 PO 1031 Cholecalciferol 1,000 IU DAILY 08/30 1000 AC 09/08 PO 1030 Docusate Sodium 100 MG BID 08/30 1000 AC 09/08 PO 1030 Erythromycin 1 ANI AT BEDTIME 08/30 2200 AC 09/07 OPH 2137 Ezetimibe 10 MG DAILY 08/30 1000 AC 09/08 PO 1030 Ferrous Sulfate 325 MG BID 08/30 1000 AC 09/08 PO 1027 Heparin Sodium 5,000 UNIT Q8 08/30 0600 AC 09/08 (Porcine) SC 0648 Hydralazine HCl 100 MG BID 08/30 1000 AC 09/08 PO 1030 Isosorbide 60 MG DAILY 08/30 1000 AC 09/08 Mononitrate PO 1030 Labetalol HCl 300 MG BID 08/30 1000 AC 09/08 PO 1029 Levothyroxine Sodium 0.05 MG DAILY AC 08/30 0700 AC 09/08 PO 0648 Patient Own 1 UNIT Q8P PRN 08/30 0115 AC 08/30 Medication TOP 1946 Polyethylene Glycol 17 GM DAILY 08/30 1000 AC 09/08 PO 1031 Senna 187 MG DAILY 08/30 1000 AC 09/08 PO 1030 Last 24 Hrs of Lab/Jamel Results Last 24 Hrs of Labs/Mics: Laboratory Tests 09/08/16 1230: Anion Gap 14, Estimated GFR 8 L, BUN/Creatinine Ratio 15.2, Glucose 93, Calcium 9.0, Phosphorus 6.0 H, Magnesium 2.5 H, Albumin 3.9, CBC w Diff NO MAN DIFF REQ, RBC 2.82 L, MCV 87.5, MCH 29.2, RDW 13.8, MPV 8.7, Gran % 80.2 H, Lymphocytes % 6.0 L, Monocytes % 11.9 H, Eosinophils % 1.5, Basophils % 0.4, Absolute Granulocytes 3.4, Absolute Lymphocytes 0.3 L, Absolute Monocytes 0.5, Absolute Eosinophils 0.1, Absolute Basophils 0, PUBS MCHC 33.4 09/07/162046: Urinalysis LIGHT H, Urine Color YEL, Urine Clarity HAZY H, Urine pH 6.0, Ur Specific [place] 1.020, Urine Protein 30 H, Urine Ketones NEG, Urine Nitrite NEG, Urine Bilirubin NEG, Urine Urobilinogen 0.2, Ur Leukocyte Esterase NEG, Ur Microscopic SEDIMENT EXAMINED, Urine RBC >75 H, Urine WBC RARE, Ur Epithelial Cells TRANS H, Urine Hemoglobin SMALL H, Urine Glucose NEG 09/07/16 1508: ANCA Pending, Complement C3 Pending, Complement C4 Pending, Hepatitis A IgM Ab NONREACTIVE, Hep Bs Antigen NONREACTIVE, Hep B Core IgM Ab Conf NONREACTIVE, Hepatitis C Antibody NONREACTIVE Assessment/Plan Assessment: Patient is a 86 y/o M with PMH HTN, HLD, CAD S/P CABG, hypothyroidism, CK D, anemia, GI bleed, history of colon cancer S/P resection, HFpEF, chronic pain on pain stimulator, ROBYN not on CPAP, on nighttime oxygen was admitted for worsening creatinine levels in his recent blood work. He was also being treated for balance issues and hallucinations by his PCP. Assessment and plan: 1. 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 Initial thought was that his creatinine might get better with the placement of Mims. However creatinine has been worsening, no clear evidence of nephrotoxic insults. * Dialysis #2 today, plan for dialysis #3 tomorrow * Creatinine improved to 6.7 today * Potassium 4.8 * Pending C3, C4, MPO and PR3 ANCA, and anti-GBM. DORA negative * Urology consult to r/o obstruction * Mims catheter continued * Holding Lasix for now * Avoid nephrotoxic medications * Urine protein, creatinine and microalbumin sent * We will check SPEP and [place] Lambda free light chains * Nephrology on board 2. Aspiration pneumonia : Now requiring 5 L of oxygen * No white count, afebrile * IV unasyn was started but cr increased, iv unasyn stopped after 1 day, due to worsening of creatinine * Will require fluid removal during dialysis 3. Hypertension: Stable * Continue labetalol, hydralazine and amlodipine * Holding Lasix for kidney injury * Continue all other home meds 4. Postherpetic neuralgia * Patient on Lyrica for pain control 5. Hallucinations: Resolved * Working with PT for balance problems 6. 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 Renal cysts on CT. Normal-size kidneys. * Creatinine 2.4 in June 2016 * Was on temporary dialysis before * Data Base Administrator is Dr. Zack Cross ([phone]) * hyperkalemia today of 5.4. Diet - Heart healthy Diet DVT prophylaxis-ALP S/heparin Code Status -Full Code Problem List: 1. GURPREET (acute kidney injury) 2. Renal failure Pain Ratin Pain Location: na Pain Goal: Remain pain free Pain Plan: tylenol Tomorrow's Labs & Rationales: bep... gurpreet on ckd
[2016-09-08 15:25] VITALS: BP 158/60
[2016-09-08 21:00] VITALS: BP 168/78
[2016-09-09 07:43] VITALS: BP 178/70
--- NOTE | 2016-09-09 10:18 | PN- Housestaff ---
Subjective Follow-up For: Acute and chronic kidney injury Aspiration pneumonia Complaints: no complaints Subjective: Creatinine improving , day 3 of dialysis today. Patient is alert awake and oriented 3. Offers no complaints. Review of Systems Constitutional: Reports: no symptoms. EENTM: Reports: no symptoms. Cardiovascular: Reports: no symptoms. Respiratory: Reports: no symptoms. Gastrointestinal: Reports: no symptoms. Genitourinary: Reports: no symptoms. Musculoskeletal: Reports: no symptoms. Skin: Reports: no symptoms. Objective Last 24 Hrs of Vital Signs/I&O Vital Signs Date Time Temp Pulse Resp B/P Pulse O2 O2 Flow FiO2 Ox Delivery Rate 09/09 0743 98.4 77 20 178/70 92 Nasal 5.0L Cannula 09/09 0000 93 Nasal 5.0L Cannula 09/08 2100 99.0 80 22 168/78 93 Nasal 5.0L Cannula 09/08 2040 80 168/78 09/08 2039 80 168/78 09/08 1935 93 Nasal 5.0L Cannula 09/08 1600 Nasal 5.0L Cannula 09/08 1525 98.5 80 20 158/60 100 Nasal 5.0L Cannula 09/08 1121 93 Nasal 5.0L Cannula 09/08 1030 80 160/90 09/08 1030 80 160/90 09/08 1029 80 160/90 09/08 1029 80 160/92 Intake & Output 09/09 1600 09/09 0800 09/09 0000 Intake Total 220 220 Output Total 200 350 Balance 20 -130 Intake, Oral 220 220 Number 1 Bowel Movements Output, Urine 200 350 Patient 108.437 kg 109.543 kg Weight Physical Exam General Appearance: Alert, Oriented X3, Cooperative, No Acute Distress Skin: No Rashes, No Breakdown, No Significant Lesion HEENT: Atraumatic, PERRLA, EOMI Neck: Supple, No JVD Lymphatic: Cervical nl Cardiovascular: Regular Rate, Normal S1, Normal S2, No Murmurs Lungs: bilateral ronchi Abdomen: Normal Bowel Sounds, Soft, No Tenderness Neurological: Normal Speech, Sensation Intact Extremities: No Clubbing, No Cyanosis, No Edema, Normal Pulses Current Medications: Current Medications Sig/Tiffanie Start time Last Medication Dose Route Stop Time Status Admin Acetaminophen 650 MG Q6P PRN 08/30 0015 AC PO Albuterol Sulfate 3 ML Q4H PRN 09/05 1330 AC 09/07 INH 1406 Amlodipine Besylate 10 MG DAILY 08/30 1000 AC 09/08 PO 1029 Atorvastatin Calcium 20 MG DAILY 08/30 1000 AC 09/08 PO 1031 Cholecalciferol 1,000 IU DAILY 08/30 1000 AC 09/08 PO 1030 Docusate Sodium 100 MG BID 08/30 1000 AC 09/08 PO 204 Epoetin Earnest 3,000 UNIT MoWeFr PRN 09/09 914 AC IV Epoetin Earnest 2,000 UNIT MoWeFr PRN 09/09 914 AC IV Erythromycin 1 ANI AT BEDTIME 08/30 2200 AC 09/08 OPH 2053 Ezetimibe 10 MG DAILY 08/30 1000 AC 09/08 PO 1030 Ferrous Sulfate 325 MG BID 08/30 1000 AC 09/08 PO 204 Heparin Sodium 5,000 UNIT Q8 08/30 0600 AC 09/09 (Porcine) SC 0600 Hydralazine HCl 100 MG BID 08/30 1000 AC 09/08 PO 2040 Isosorbide 60 MG DAILY 08/30 1000 AC 09/08 Mononitrate PO 1030 Labetalol HCl 300 MG BID 08/30 1000 AC 09/08 PO 2039 Levothyroxine Sodium 0.05 MG DAILY AC 08/30 0700 AC 09/09 PO 0600 Patient Own 1 UNIT Q8P PRN 08/30 0115 AC 08/30 Medication TOP 1946 Polyethylene Glycol 17 GM DAILY 08/30 1000 AC 09/08 PO 1031 Senna 187 MG DAILY 08/30 1000 AC 09/08 PO 1030 Last 24 Hrs of Lab/Jamel Results Last 24 Hrs of Labs/Mics: Laboratory Tests 09/09/16 0815: Sodium Pending, Potassium Pending, Chloride Pending, Carbon Dioxide Pending, Anion Gap Pending, BUN Pending, Creatinine Pending, BUN/Creatinine Ratio Pending 09/09/16 0630: Urinalysis MOD H, Urine Color YEL, Urine Clarity CLEAR, Urine pH 6.0, Ur Specific [place] 1.025, Urine Protein 30 H, Urine Ketones TRACE H, Urine Nitrite NEG, Urine Bilirubin NEG@ICTO, Urine Urobilinogen 0.2, Ur Leukocyte Esterase NEG, Ur Microscopic SEDIMENT EXAMINED, Urine RBC 1-3, Urine WBC 1-3 H, Ur Epithelial Cells RARE, Urine Bacteria FEW H, Hyaline Casts RARE H, Granular Casts RARE H, Urine Mucus FEW, Urine Hemoglobin NEG, Urine Glucose NEG 09/08/16 1230: Anion Gap 14, Estimated GFR 8 L, BUN/Creatinine Ratio 15.2, Glucose 93, Calcium 9.0, Phosphorus 6.0 H, Magnesium 2.5 H, Albumin 3.9, CBC w Diff NO MAN DIFF REQ, RBC 2.82 L, MCV 87.5, MCH 29.2, RDW 13.8, MPV 8.7, Gran % 80.2 H, Lymphocytes % 6.0 L, Monocytes % 11.9 H, Eosinophils % 1.5, Basophils % 0.4, Absolute Granulocytes 3.4, Absolute Lymphocytes 0.3 L, Absolute Monocytes 0.5, Absolute Eosinophils 0.1, Absolute Basophils 0, PUBS MCHC 33.4 Assessment/Plan Assessment: Patient is a 86 y/o M with PMH HTN, HLD, CAD S/P CABG, hypothyroidism, CK D, anemia, GI bleed, history of colon cancer S/P resection, HFpEF, chronic pain on pain stimulator, ROBYN not on CPAP, on nighttime oxygen was admitted for worsening creatinine levels in his recent blood work. He was also being treated for balance issues and hallucinations by his PCP. Assessment and plan: 1. 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 Initial thought was that his creatinine might get better with the placement of Mims. However creatinine has been worsening, no clear evidence of nephrotoxic insults. * Dialysis #3 today, plan for dialysis #3 tomorrow * Creatinine improved to 5 today * Potassium 4.5 * Pending C3, C4, MPO and PR3 ANCA, and anti-GBM. DORA negative * Urology consult to r/o obstruction * Mims catheter continued * Holding Lasix for now * Avoid nephrotoxic medications * Urine protein, creatinine and microalbumin sent * Elevated [place] and lambda light chains * Nephrology on board 2. Aspiration pneumonia : Now requiring 5 L of oxygen * No white count, afebrile * IV unasyn was started but cr increased, iv unasyn stopped after 1 day, due to worsening of creatinine * 1 L of fluid removed during last dialysis. Will require more fluid removal. 3. Hypertension: Stable * Continue labetalol, hydralazine and amlodipine * Holding Lasix for kidney injury * Continue all other home meds 4. Postherpetic neuralgia * Patient on Lyrica for pain control 5. Hallucinations: Resolved * Working with PT for balance problems 6. 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 Renal cysts on CT. Normal-size kidneys. * Creatinine 2.4 in June 2016 * Was on temporary dialysis before * Fish Net Maker is Dr. Zack Cross ([phone]) * hyperkalemia today of 5.4. Diet - Heart healthy Diet DVT prophylaxis-ALP S/heparin Code Status -Full Code Problem List: 1. GURPREET (acute kidney injury) 2. Aspiration pneumonia 3. CKD (chronic kidney disease) Pain Ratin Pain Location: na Pain Goal: Remain pain free Pain Plan: tylenol Tomorrow's Labs & Rationales: bep... gurpreet on ckd
--- NOTE | 2016-09-09 12:09 | PN- Att Addend ---
Attending Addendum Attending Brief Note Patient seen and examined. Plan of care discussed with the medical team and the patient. Available lab work and radiology test reports were reviewed. He is currently undergoing hemodialysis. Patient denies any recent fever chills or chest pains. He appears awake alert. He continues to be on oxygen currently at 5 L of oxygen by nasal cannula. Vital Signs Date Time Temp Pulse Resp B/P Pulse O2 O2 Flow FiO2 Ox Delivery Rate 09/09 08 Nasal 5.0L Cannula 09/09 0743 98.4 77 20 178/70 92 Nasal 5.0L Cannula 09/09 0000 93 Nasal 5.0L Cannula 09/08 2100 99.0 80 22 168/78 93 Nasal 5.0L Cannula 09/08 2040 80 168/78 09/08 2039 80 168/78 09/08 1935 93 Nasal 5.0L Cannula 09/08 1600 Nasal 5.0L Cannula 09/08 1525 98.5 80 20 158/60 100 Nasal 5.0L Cannula Intake & Output 09/09 1600 09/09 0800 09/09 0000 Intake Total 220 220 Output Total 200 350 Balance 20 -130 Intake, Oral 220 220 Number 1 Bowel Movements Output, Urine 200 350 Patient 239 lb 242 lb Weight Exam: General: Patient is lethargic and awake and lethargic partially oriented without any distress; his confusion seems to have improved. CVS: S1 plus S2 without any murmur or gallops Chest: Few scattered crepitation without any wheeze. There is no respiratory distress. Abdomen: Soft nontender, bowel sound present, no guarding or rebound ACOUSTIC WARFARE ANALYST: Awake alert oriented without any focal neuro deficit and follows command appropriately Extremities: No edema; no clubbing or cyanosis noted Laboratory Tests 09/09 09/09 0815 0630 Chemistry Sodium (137 - 145 mmol/L) 142 Potassium (3.5 - 5.1 mmol/L) 4.5 Chloride (98 - 107 mmol/L) 101 Carbon Dioxide (22 - 30 mmol/L) 26 Anion Gap (5 - 16) 15 BUN (9 - 20 mg/dL) 72 H Creatinine (0.7 - 1.2 mg/dL) 5.0 H Estimated GFR (>60 ml/min) 11 L BUN/Creatinine Ratio (7 - 25 %) 14.4 Urines Urinalysis MOD H Urine Color (YEL,AMB,STR) YEL Urine Clarity (CLEAR) CLEAR Urine pH (5.0 - 8.0) 6.0 Ur Specific [place] (1.001 - 1.035) 1.025 Urine Protein (NEG,<30 MG/DL) 30 H Urine Ketones (NEG) TRACE H Urine Nitrite (NEG) NEG Urine Bilirubin (NEG) NEG@ICTO Urine Urobilinogen (0.1 - 1.0 EU/dl) 0.2 Ur Leukocyte Esterase (NEG) NEG Ur Microscopic SEDIMENT EXAMINED Urine RBC (0 - 5 /HPF) 1-3 Urine WBC (0 - 2 /HPF) 1-3 H Ur Epithelial Cells (NONE,FEW) RARE Urine Bacteria (NEG/NONE) FEW H Hyaline Casts (0/LPF) RARE H Granular Casts (NONE /LPF) RARE H Urine Mucus (FEW,NONE) FEW Urine Hemoglobin (NEG) NEG Urine Glucose (N MG/DL) NEG 09/08 1230 Chemistry Sodium (137 - 145 mmol/L) 139 Potassium (3.5 - 5.1 mmol/L) 4.8 Chloride (98 - 107 mmol/L) 104 Carbon Dioxide (22 - 30 mmol/L) 21 L Anion Gap (5 - 16) 14 BUN (9 - 20 mg/dL) 102 *H Creatinine (0.7 - 1.2 mg/dL) 6.7 *H Estimated GFR (>60 ml/min) 8 L BUN/Creatinine Ratio (7 - 25 %) 15.2 Glucose (65 - 99 mg/dL) 93 Calcium (8.4 - 10.2 mg/dL) 9.0 Phosphorus (2.5 - 4.5 mg/dL) 6.0 H Magnesium (1.6 - 2.3 mg/dL) 2.5 H Albumin (3.5 - 5.0 g/dL) 3.9 Hematology CBC w Diff NO MAN DIFF REQ WBC (4.8 - 10.8 /CUMM) 4.3 L RBC (4.70 - 6.10 /CUMM) 2.82 L Hgb (14.0 - 18.0 G/DL) 8.3 L Hct (42 - 52 %) 24.7 L MCV (80.0 - 94.0 FL) 87.5 MCH (27.0 - 31.0 PG) 29.2 RDW (11.5 - 14.5 %) 13.8 Plt Count (130 - 400 /CUMM) 132 MPV (7.4 - 10.4 FL) 8.7 Gran % (42.2 - 75.2 %) 80.2 H Lymphocytes % (20.5 - 51.1 %) 6.0 L Monocytes % (1.7 - 9.3 %) 11.9 H Eosinophils % (0 - 5 %) 1.5 Basophils % (0.0 - 2.0 %) 0.4 Absolute Granulocytes (1.4 - 6.5 /CUMM) 3.4 Absolute Lymphocytes (1.2 - 3.4 /CUMM) 0.3 L Absolute Monocytes (0.10 - 0.60 /CUMM) 0.5 Absolute Eosinophils (0.0 - 0.7 /CUMM) 0.1 Absolute Basophils (0.0 - 0.2 /CUMM) 0 PUBS MCHC (33.0 - 37.0 G/DL) 33.4 Assessment * Acute and chronic renal failure- patient current hemodialysis day #3 with improvement in creatinine * Rule out CHF given the patient's tachypnea and increasing hypoxia * Hyperkalemia- continue hemodialysis; potassium has improved * Recent diagnosis of pneumonia- patient received short course of Unasyn which was discontinued due to fears of interstitial nephritis. Patient currently is afebrile. * Hypoxia- continue incentive spirometry Plan * Continue to monitor respiratory status; taper oxygen as tolerate; patient needs fluid removal during dialysis * Follow-up lab work which will be done during dialysis * Patient remains hypoxic he may need reimaging of his chest * Continue to monitor respiratory status; taper oxygen as tolerate; patient needs fluid removal during dialysis * Follow-up lab work which will be done during dialysis
--- NOTE | 2016-09-09 12:42 | PN- Nephrology ---
Assessment/Plan Assessment: GURPREET - Had continued to rise to the point of needing initiation of dialysis. Confusion improving. UOP increasing - cruz catheter remains in (this may have been the cause of his worsening renal function). Still not clear to me whether or not he has ESRD. Hematuria - Resolved. Likely 2/2 cruz placement rather than acute GN. Urinary retention - Still with significant UOP. Has cruz in. 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 I suspect that the renal cysts are acquired rather than the underlying cause of his CKD as his kidneys are normal in size and he is 86 years old. Hypoxia - Not clear from last chest x-ray that this is 2/2 fluid. He's getting some fluid taken off with dialysis with care not to drop his blood pressure. Can repeat chest x-ray after today's dialysis to reevaluate for pulm pathology. Suggestion: -Dialysis #3 today -Chest x-ray after dialysis today -Tentative plan for next dialysis on Monday -Maintain crzu catheter -f/u BMP and UOP Monday - will ask for him to be on second shift dialysis that day so that he can be evaluated beforehand -Serologies sent but hematuria resolved - not likely to be clinically helpful at this point Will continue to follow. Please call [phone] with ?'s [phone] Subjective Subjective: Pt seen and examined on dialysis No complaints Noted by housestaff to still have significant O2 requirements UOP up to 1350cc over last day - remains with cruz Objective Vital Signs and I&Os Vital Signs Date Time Temp Pulse Resp B/P Pulse O2 O2 Flow FiO2 Ox Delivery Rate 09/09 0800 Nasal 5.0L Cannula 09/09 0743 98.4 77 20 178/70 92 Nasal 5.0L Cannula 09/09 0000 93 Nasal 5.0L Cannula 09/08 2100 99.0 80 22 168/78 93 Nasal 5.0L Cannula 09/08 2040 80 168/78 09/08 2039 80 168/78 09/08 1935 93 Nasal 5.0L Cannula 09/08 1600 Nasal 5.0L Cannula 09/08 1525 98.5 80 20 158/60 100 Nasal 5.0L Cannula Intake & Output 09/09 1600 09/09 0400 09/08 1600 09/08 0400 03/08 1600 03/08 0400 Intake Total 220 220 400 700 120 250 Output Total 552 509 9467 400 475 150 Balance 20 -130 -600 300 -355 100 Intake, IV 10 Intake, Oral 220 220 400 700 120 240 Number 1 2 1 1 Bowel Movements Output, Urine 266 841 9583 400 475 150 Patient 239 lb 242 lb Weight Physical Exam: Gen - improved appearance HEENT - supple CV - RRR Chest - clear Abd - soft, nontender Ext - no significant edema Neuro - alert, oriented to place, date, and the president Current Medications: Current Medications Sig/Tiffanie Start time Last Medication Dose Route Stop Time Status Admin Acetaminophen 650 MG Q6P PRN 08/30 0015 AC PO Albuterol Sulfate 3 ML Q4H PRN 09/05 1330 AC 09/07 INH 1406 Amlodipine Besylate 10 MG DAILY 08/30 1000 AC 09/08 PO 1029 Atorvastatin Calcium 20 MG DAILY 08/30 1000 AC 09/08 PO 1031 Cholecalciferol 1,000 IU DAILY 08/30 1000 AC 09/08 PO 1030 Docusate Sodium 100 MG BID 08/30 1000 AC 09/08 PO 2042 Epoetin Earnest 3,000 UNIT MoWeFr PRN 09/09 0915 AC IV Epoetin Earnest 2,000 UNIT MoWeFr PRN 09/09 0915 AC IV Erythromycin 1 ANI AT BEDTIME 08/30 2200 AC 09/08 OPH 2053 Ezetimibe 10 MG DAILY 08/30 1000 AC 09/08 PO 1030 Ferrous Sulfate 325 MG BID 08/30 1000 AC 09/08 PO 2042 Heparin Sodium 5,000 UNIT Q8 08/30 0600 AC 09/09 (Porcine) SC 0600 Hydralazine HCl 100 MG BID 08/30 1000 AC 09/08 PO 2040 Isosorbide 60 MG DAILY 08/30 1000 AC 09/08 Mononitrate PO 1030 Labetalol HCl 300 MG BID 08/30 1000 AC 09/08 PO 2039 Levothyroxine Sodium 0.05 MG DAILY AC 08/30 0700 AC 09/09 PO 0600 Patient Own 1 UNIT Q8P PRN 08/30 0115 AC 08/30 Medication TOP 1946 Polyethylene Glycol 17 GM DAILY 08/30 1000 AC 09/08 PO 1031 Senna 187 MG DAILY 08/30 1000 AC 09/08 PO 1030 Results Pertinent Lab Results: Laboratory Tests 09/09 09/09 0815 0630 Chemistry Sodium (137 - 145 mmol/L) 142 Potassium (3.5 - 5.1 mmol/L) 4.5 Chloride (98 - 107 mmol/L) 101 Carbon Dioxide (22 - 30 mmol/L) 26 Anion Gap (5 - 16) 15 BUN (9 - 20 mg/dL) 72 H Creatinine (0.7 - 1.2 mg/dL) 5.0 H Estimated GFR (>60 ml/min) 11 L BUN/Creatinine Ratio (7 - 25 %) 14.4 Urines Urinalysis MOD H Urine Color (YEL,AMB,STR) YEL Urine Clarity (CLEAR) CLEAR Urine pH (5.0 - 8.0) 6.0 Ur Specific [place] (1.001 - 1.035) 1.025 Urine Protein (NEG,<30 MG/DL) 30 H Urine Ketones (NEG) TRACE H Urine Nitrite (NEG) NEG Urine Bilirubin (NEG) NEG@ICTO Urine Urobilinogen (0.1 - 1.0 EU/dl) 0.2 Ur Leukocyte Esterase (NEG) NEG Ur Microscopic SEDIMENT EXAMINED Urine RBC (0 - 5 /HPF) 1-3 Urine WBC (0 - 2 /HPF) 1-3 H Ur Epithelial Cells (NONE,FEW) RARE Urine Bacteria (NEG/NONE) FEW H Hyaline Casts (0/LPF) RARE H Granular Casts (NONE /LPF) RARE H Urine Mucus (FEW,NONE) FEW Urine Hemoglobin (NEG) NEG Urine Glucose (N MG/DL) NEG 09/08 09/07 1230 2047 Chemistry Sodium (137 - 145 mmol/L) 139 Potassium (3.5 - 5.1 mmol/L) 4.8 Chloride (98 - 107 mmol/L) 104 Carbon Dioxide (22 - 30 mmol/L) 21 L Anion Gap (5 - 16) 14 BUN (9 - 20 mg/dL) 102 *H Creatinine (0.7 - 1.2 mg/dL) 6.7 *H Estimated GFR (>60 ml/min) 8 L BUN/Creatinine Ratio (7 - 25 %) 15.2 Glucose (65 - 99 mg/dL) 93 Calcium (8.4 - 10.2 mg/dL) 9.0 Phosphorus (2.5 - 4.5 mg/dL) 6.0 H Magnesium (1.6 - 2.3 mg/dL) 2.5 H Albumin (3.5 - 5.0 g/dL) 3.9 Hematology CBC w Diff NO MAN DIFF REQ WBC (4.8 - 10.8 /CUMM) 4.3 L RBC (4.70 - 6.10 /CUMM) 2.82 L Hgb (14.0 - 18.0 G/DL) 8.3 L Hct (42 - 52 %) 24.7 L MCV (80.0 - 94.0 FL) 87.5 MCH (27.0 - 31.0 PG) 29.2 RDW (11.5 - 14.5 %) 13.8 Plt Count (130 - 400 /CUMM) 132 MPV (7.4 - 10.4 FL) 8.7 Gran % (42.2 - 75.2 %) 80.2 H Lymphocytes % (20.5 - 51.1 %) 6.0 L Monocytes % (1.7 - 9.3 %) 11.9 H Eosinophils % (0 - 5 %) 1.5 Basophils % (0.0 - 2.0 %) 0.4 Absolute Granulocytes (1.4 - 6.5 /CUMM) 3.4 Absolute Lymphocytes (1.2 - 3.4 /CUMM) 0.3 L Absolute Monocytes (0.10 - 0.60 /CUMM) 0.5 Absolute Eosinophils (0.0 - 0.7 /CUMM) 0.1 Absolute Basophils (0.0 - 0.2 /CUMM) 0 PUBS MCHC (33.0 - 37.0 G/DL) 33.4 Urines Urinalysis LIGHT H Urine Color (YEL,AMB,STR) YEL Urine Clarity (CLEAR) HAZY H Urine pH (5.0 - 8.0) 6.0 Ur Specific [place] (1.001 - 1.035) 1.020 Urine Protein (NEG,<30 MG/DL) 30 H Urine Ketones (NEG) NEG Urine Nitrite (NEG) NEG Urine Bilirubin (NEG) NEG Urine Urobilinogen (0.1 - 1.0 EU/dl) 0.2 Ur Leukocyte Esterase (NEG) NEG Ur Microscopic SEDIMENT EXAMINED Urine RBC (0 - 5 /HPF) >75 H Urine WBC (0 - 2 /HPF) RARE Ur Epithelial Cells (NONE,FEW) TRANS H Urine Hemoglobin (NEG) SMALL H Urine Glucose (N MG/DL) NEG 09/07 09/07 09/07 1508 1400 0730 Chemistry Sodium (137 - 145 mmol/L) 138 Potassium (3.5 - 5.1 mmol/L) 5.5 H Chloride (98 - 107 mmol/L) 100 Carbon Dioxide (22 - 30 mmol/L) 22 Anion Gap (5 - 16) 16 BUN (9 - 20 mg/dL) 120 *H Creatinine (0.7 - 1.2 mg/dL) 8.6 *H Estimated GFR (>60 ml/min) 6 L BUN/Creatinine Ratio (7 - 25 %) 14.0 Hematology CBC w Diff NO MAN DIFF REQ WBC (4.8 - 10.8 /CUMM) 4.1 L RBC (4.70 - 6.10 /CUMM) 2.97 L Hgb (14.0 - 18.0 G/DL) 8.7 L Hct (42 - 52 %) 25.8 L MCV (80.0 - 94.0 FL) 87.0 MCH (27.0 - 31.0 PG) 29.5 RDW (11.5 - 14.5 %) 13.5 Plt Count (130 - 400 /CUMM) 128 L MPV (7.4 - 10.4 FL) 8.9 Gran % (42.2 - 75.2 %) 82.1 H Lymphocytes % (20.5 - 51.1 %) 7.0 L Monocytes % (1.7 - 9.3 %) 9.2 Eosinophils % (0 - 5 %) 1.5 Basophils % (0.0 - 2.0 %) 0.2 Absolute Granulocytes (1.4 - 6.5 /CUMM) 3.4 Absolute Lymphocytes (1.2 - 3.4 /CUMM) 0.3 L Absolute Monocytes (0.10 - 0.60 /CUMM) 0.4 Absolute Eosinophils (0.0 - 0.7 /CUMM) 0.1 Absolute Basophils (0.0 - 0.2 /CUMM) 0 PUBS MCHC (33.0 - 37.0 G/DL) 33.9 Immunology ANCA Pending Complement C3 Pending Complement C4 Pending Miscellaneous Ref Lab Test Result Pending Ref Lab Test Result Pending Ref Lab Test Result Pending Serology Hepatitis A IgM Ab (NONREACTIVE) NONREACTIVE Hep Bs Antigen (NONREACTIVE) NONREACTIVE Hep B Core IgM Ab Conf (NONREACTIVE) NONREACTIVE Hepatitis C Antibody (NONREACTIVE) NONREACTIVE 09/06 2024 Coagulation PT (9.4 - 12.5 SEC) 11.3 INR (0.90 - 1.17) 1.08
--- NOTE | 2016-09-09 12:51 | Cons- Urology ---
General Information and HPI Consulting Request Date of Consult: 09/09/16 Requested By: ALAN MCLEAN MD Reason for Consult: worsening renal function: bph-retention? Source of Information: patient, family, old records Exam Limitations: no limitations History of Present Illness: 86 year old with multiple med. problems, present with worsenin renal failure and left chest pain. pt reportedly voiding well, but cruz placed for strict I and O. Renal US reviewed with NO hydro. bilat. Allergies/Medications Allergies: Coded Allergies: NO KNOWN ALLERGIES (09/28/15) Home Med List: Amlodipine Besylate 10 MG TABLET 1 TAB PO DAILY BP (Reported) Atorvastatin Calcium 20 MG TABLET 1 TAB PO DAILY CHOLESTEROL (Reported) Cholecalciferol (Vitamin D3) (Vitamin D) 1,000 UNIT TABLET 1 TAB PO DAILY SUPPLEMENT (Reported) Docusate Sodium (Colace) 100 MG CAPSULE 1 CAP PO BID STOOL SOFTENER (Reported ) Epoetin Earnest (Procrit) 20,000 UNIT/1 ML VIAL 30,000 U SC ONCE A WEEK ANEMIA Erythromycin Base (Erythromycin) 5 MG/GRAM (0.5 %) OINT...G. 1 ANI OPH QHS RIGHT LOWER LID (Reported) apply 1 cm ribbon into the lower conjunctival sac Ezetimibe (Zetia) 10 MG TABLET 1 TAB PO DAILY CHOLESTEROL (Reported) Ferrous Sulfate (IRON) (Unknown Strength) TABLET 2 TAB PO BID SUPPLEMENT ( Reported) Furosemide (Lasix) 20 MG TABLET 60 MG PO QAM DIURETIC (Reported) Furosemide 20 MG TABLET 20 MG PO DAILY HEART FAILURE [Cheryl 10%/ Lido 5%/ A] 1 ANI TOP QPM NERVE PAIN -LEFT SIDE UNDER AR (Reported) Hydralazine HCl 100 MG TABLET 1 TAB PO BID BP (Reported) Isosorbide Mononitrate (Isosorbide Mononitrate ER) 60 MG TAB.ER.24H 1 TAB PO DAILY HEART (Reported) Labetalol HCl 300 MG TABLET 1 TAB PO BID BP (Reported) Levothyroxine Sodium 50 MCG TABLET 1 TAB PO DAILY THYROID (Reported) Omeprazole 20 MG CAPSULE.DR 40 MG PO BID gi bleed Pregabalin (Lyrica) 75 MG CAPSULE 1 CAP PO QPM NERVE PAIN (Reported) Sennosides (Senokot) 8.6 MG TABLET 1 TAB PO DAILY GI (Reported) Current Medications: Current Medications Sig/Tiffanie Start time Last Medication Dose Route Stop Time Status Admin Acetaminophen 650 MG Q6P PRN 08/30 0015 AC PO Albuterol Sulfate 3 ML Q4H PRN 09/05 1330 AC 09/07 INH 1406 Amlodipine Besylate 10 MG DAILY 08/30 1000 AC 09/09 PO 1234 Atorvastatin Calcium 20 MG DAILY 08/30 1000 AC 09/09 PO 1230 Cholecalciferol 1,000 IU DAILY 08/30 1000 AC 09/09 PO 1229 Docusate Sodium 100 MG BID 08/30 1000 AC 09/09 PO 1230 Epoetin Earnest 3,000 UNIT MoWeFr PRN 09/09 09 AC IV Epoetin Earnest 2,000 UNIT MoWeFr PRN 09/09 09 AC IV Erythromycin 1 ANI AT BEDTIME 08/30 2200 AC 09/08 OPH 2053 Ezetimibe 10 MG DAILY 08/30 1000 AC 09/09 PO 1230 Ferrous Sulfate 325 MG BID 08/30 1000 AC 09/09 PO 1230 Heparin Sodium 5,000 UNIT Q8 08/30 0600 AC 09/09 (Porcine) SC 0600 Hydralazine HCl 100 MG BID 08/30 1000 AC 09/09 PO 1234 Isosorbide 60 MG DAILY 08/30 1000 AC 09/09 Mononitrate PO 1233 Labetalol HCl 300 MG BID 08/30 1000 AC 09/09 PO 1233 Levothyroxine Sodium 0.05 MG DAILY AC 08/30 0700 AC 09/09 PO 0600 Patient Own 1 UNIT Q8P PRN 08/30 0115 AC 08/30 Medication TOP 1946 Polyethylene Glycol 17 GM DAILY 08/30 1000 AC 09/08 PO 1031 Senna 187 MG DAILY 08/30 1000 AC 09/09 PO 1230 Past History Medical History Neurological: shingles- left flank EENT: NONE Cardiovascular: CAD (s/p CABG x 5), diastolic CHF, hypertension, hyperlipidemia, atrial tachycardia Respiratory: pneumonia Gastrointestinal: NONE Hepatic: NONE Renal: chronic kidney disease (stage 4) Musculoskeletal: chronic back pain (implanted stimulator device), osteoarthritis Psychiatric: NONE Endocrine: hypothyroidism Blood Disorders: anemia 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 FATHER, , Age 70; Cause: Myocardial infarction. Relation not specified for: colon cancer in mother Psychosocial History Primary Language: American Smoking Status: Former Smoker ETOH Use: denies use Illicit Drug Use: denies illicit drug use Living Will? yes Power of Global Cto/HCP? unknown Functional Ability ADLs Independent: dressing, eating, toileting, bathing. Ambulation: independent IADLs Independent: shopping, housework, finances, food prep, telephone, transportation , medication admin. Employment History Retired? yes Review of Systems Review of Systems Constitutional: Reports: malaise, weakness. EENTM: Denies: no symptoms. Cardiovascular: Denies: no symptoms. GI: Reports: bloating, distention. Genitourinary: Denies: no symptoms. Musculoskeletal: Reports: back pain. Neurological/Psychological: Denies: no symptoms. Exam & Diagnostic Data Vital Signs and I&O Vital Signs Date Time Temp Pulse Resp B/P Pulse O2 O2 Flow FiO2 Ox Delivery Rate 09/09 1234 80 168/70 09/09 1234 80 168/70 09/09 1233 80 168/70 09/09 1233 80 168/70 09/09 0800 Nasal 5.0L Cannula 09/09 0743 98.4 77 20 178/70 92 Nasal 5.0L Cannula 09/09 0000 93 Nasal 5.0L Cannula 09/08 2100 99.0 80 22 168/78 93 Nasal 5.0L Cannula 09/08 2040 80 168/78 09/08 2039 80 168/78 09/08 1935 93 Nasal 5.0L Cannula 09/08 1600 Nasal 5.0L Cannula 09/08 1525 98.5 80 20 158/60 100 Nasal 5.0L Cannula Intake & Output 09/09 1600 09/09 0800 09/09 0000 09/08 1600 09/08 0800 09/08 0000 Intake Total 220 220 400 700 Output Total 722 464 8313 400 Balance 20 -130 -600 300 Intake, Oral 220 220 400 700 Number 1 1 1 1 Bowel Movements Output, Urine 445 937 8950 400 Patient 239 lb 242 lb Weight Physical Exam General Appearance: well developed/nourished, obese Head: atraumatic Neck: normal inspection Respiratory: normal breath sounds Cardiovascular: regular rate/rhythm Gastrointestinal: morbidly obese Back: no vertebral tenderness Extremities: normal inspection, normal capillary refill Neurologic/Psych: no motor/sensory deficits, awake, alert, oriented x 3 Skin: intact Reproductive: Normal male genitalia, cruz in place Last 24 Hours of Labs: Laboratory Tests 09/09 09/09 0815 0630 Chemistry Sodium (137 - 145 mmol/L) 142 Potassium (3.5 - 5.1 mmol/L) 4.5 Chloride (98 - 107 mmol/L) 101 Carbon Dioxide (22 - 30 mmol/L) 26 Anion Gap (5 - 16) 15 BUN (9 - 20 mg/dL) 72 H Creatinine (0.7 - 1.2 mg/dL) 5.0 H Estimated GFR (>60 ml/min) 11 L BUN/Creatinine Ratio (7 - 25 %) 14.4 Urines Urinalysis MOD H Urine Color (YEL,AMB,STR) YEL Urine Clarity (CLEAR) CLEAR Urine pH (5.0 - 8.0) 6.0 Ur Specific [place] (1.001 - 1.035) 1.025 Urine Protein (NEG,<30 MG/DL) 30 H Urine Ketones (NEG) TRACE H Urine Nitrite (NEG) NEG Urine Bilirubin (NEG) NEG@ICTO Urine Urobilinogen (0.1 - 1.0 EU/dl) 0.2 Ur Leukocyte Esterase (NEG) NEG Ur Microscopic SEDIMENT EXAMINED Urine RBC (0 - 5 /HPF) 1-3 Urine WBC (0 - 2 /HPF) 1-3 H Ur Epithelial Cells (NONE,FEW) RARE Urine Bacteria (NEG/NONE) FEW H Hyaline Casts (0/LPF) RARE H Granular Casts (NONE /LPF) RARE H Urine Mucus (FEW,NONE) FEW Urine Hemoglobin (NEG) NEG Urine Glucose (N MG/DL) NEG Imaging Results: PATIENT: IRIS DREW PRESENT AGE: 86 PATIENT ACCOUNT NO: [id number] : 31 LOCATION: 1NO ORDERING PHYSICIAN: MOO VELASCO MD SERVICE DATE: 08/30/16 EXAM TYPE: US - US-RENAL/KIDNEY EXAMINATION: US RETROPERITONEAL COMPLETE (RENAL) CLINICAL INFORMATION: 86-year-old male with acute kidney injury. Suspected obstruction. COMPARISON: CT of the abdomen and pelvis done on 10/20/2015. TECHNIQUE: Real-time imaging of the kidneys and bladder. FINDINGS: RIGHT KIDNEY: 10.6 x 4.3 x 4.9 cm (SAG x AP x TRV). Marked diffuse cortical thinning is noted throughout the entire right kidney without evidence of any hydronephrosis. There are 3 cortical renal cysts identified, the largest seen at the inferior pole, measures 3.6 x 2.0 x 2.8 cm. The second smaller cortical cyst is noted at the mid pole, measures 2.1 x 1.9 x 2.0 cm. The superior polar cyst measures 1.8 x 1.6 x 1.8 cm. LEFT KIDNEY: 11.1 x 6.0 x 6.3 cm (SAG x AP x TRV). Moderate diffuse cortical thinning is present with no evidence of any hydronephrosis. Superimposed multiple cystic abnormalities are present, one at the upper pole measures 2.0 x 1.8 x 2.5 cm, while the cystic abnormality seen at the mid pole measures 2.5 x 2.0 x 2.1 cm. BLADDER: Bladder is decompressed. There is a Cruz catheter present. IMPRESSION: 1. Bilateral normal size kidneys with evidence of marked diffuse cortical thinning on the right and moderate diffuse cortical thinning on the left with superimposed multiple cystic abnormalities, as described above. 2. No sonographic evidence of hydronephrosis on either side. Assessment/Plan Assessment/Plan pt with progressing renal function likely medical disease as there is no obstruction on US. BPH-retention possible contributing factor. plan: keep cruz until creatinine reaches baseline then dc. Copies To: ANTONIO PACHECO MD Consult Acknowledgment - Thank you for your consult request. Attending MD Review Statement Attending Statement Attending MD Statement: examined this patient, discuss w/resident/PA/TECHNICAL SUPPORT INTERN Attending Assessment/Plan: pt with worsening renal failure;possibly exacerbated by dehydration and bph. no hydronephrosis on US so no acute intervention needed. would keep cruz until baseline creatinine reached then DC
--- NOTE | 2016-09-09 14:05 | RADIOLOGY REPORT ---
EXAMINATION: XR MODIFIED BARIUM SWALLOW CLINICAL INFORMATION: Dysphagia. COMPARISON: None. TECHNIQUE: Fluoroscopic assistance was provided during a modified barium swallow performed in coordination with the speech pathology service. FLUOROSCOPY TIME: 55 seconds NUMBER OF SAVED IMAGES: 9 FINDINGS: The modified barium swallow examination was performed in cooperation with the speech pathologist using dynamic fluoroscopic imaging in a lateral projection. The patient's swallowing function was observed during administration of apple sauce puree, honey, nectar, thin barium contrast, and barium coated bread and cracker. Normal swallowing function was observed. No episodes of tracheal aspiration or penetration. IMPRESSION: Normal swallowing function was observed. No evidence of tracheal aspiration.
[2016-09-09 14:24] VITALS: BP 120/78
--- NOTE | 2016-09-09 15:28 | RADIOLOGY REPORT ---
EXAMINATION: XR PORTABLE CHEST CLINICAL INFORMATION: Evaluate for congestion. COMPARISON: Chest x-ray 09/06/2016. TECHNIQUE: Portable AP view of the chest was obtained. FINDINGS: Single AP view of the chest demonstrates pulmonary hypoinflation and bronchovascular crowding. Redemonstrated is nonspecific elevation of the left hemidiaphragm, with loops of bowel visualized beneath the left hemidiaphragm. Cardiomediastinal contours are partially obscured. Redemonstrated are median sternotomy wires and findings suggestive of prior CABG. There is a large bore right jugular central venous catheter terminating within the right atrium. No large right-sided pleural effusions or pneumothoraces are identified. There is limited evaluation for pleural fluid within the left lung base given elevation of the left hemidiaphragm. Left basilar opacification is nonspecific and could reflect atelectasis. Superimposed infection is not excluded in the appropriate clinical setting. IMPRESSION: 1. Interval placement of a large bore right jugular central venous catheter which is visualized terminating within the right atrium. Otherwise, no significant interval changes in the appearance of the chest. 2. No pneumothoraces. 3. Persistent elevation of the left hemidiaphragm. Left basilar opacification may reflect atelectasis. Superimposed infection cannot be excluded in the appropriate clinical setting.
[2016-09-09 23:45] VITALS: BP 152/72
[2016-09-10 06:48] VITALS: BP 120/60
--- NOTE | 2016-09-10 09:17 | PN- Housestaff ---
Subjective Follow-up For: Acute and chronic kidney injury Aspiration pneumonia Subjective: Creatinine improving , Patient is alert awake and oriented 3. Offers no complaints. Review of Systems Constitutional: Reports: no symptoms. EENTM: Reports: no symptoms. Cardiovascular: Reports: no symptoms. Respiratory: Reports: no symptoms. Gastrointestinal: Reports: no symptoms. Genitourinary: Reports: no symptoms. Musculoskeletal: Reports: no symptoms. Skin: Reports: no symptoms. Objective Last 24 Hrs of Vital Signs/I&O Vital Signs Date Time Temp Pulse Resp B/P Pulse O2 O2 Flow FiO2 Ox Delivery Rate 09/10 0648 98.1 70 18 120/60 94 Nasal 4.0L Cannula 09/10 0000 Nasal 5.0L Cannula 09/09 2345 98.9 70 20 152/72 95 Nasal 4.0L Cannula 09/09 2219 70 152/72 09/09 2219 70 152/72 09/09 1600 94 Nasal 2.0L Cannula 09/09 1424 98.0 68 20 120/78 92 09/09 1354 93 Nasal 5.0L Cannula 09/09 1234 80 168/70 09/09 1234 80 168/70 09/09 1233 80 168/70 09/09 1233 80 168/70 Intake & Output 09/10 1600 09/10 0800 09/10 0000 Intake Total 100 100 Output Total 125 326 Balance -25 -226 Intake, Oral 100 100 Output, Stool 1 Output, Urine 125 325 Patient 235 lb Weight Physical Exam General Appearance: Alert, Oriented X3, Cooperative, No Acute Distress Skin: No Rashes, No Breakdown, No Significant Lesion HEENT: Atraumatic, PERRLA, EOMI Neck: Supple, No JVD Lymphatic: Cervical nl Cardiovascular: Regular Rate, Normal S1, Normal S2 Lungs: b/l RONCHI Abdomen: Normal Bowel Sounds, Soft, No Tenderness Extremities: No Clubbing, No Cyanosis, No Edema, Normal Pulses Vascular: Normal Pulses, Pulses Symmetrical Current Medications: Current Medications Sig/Tiffanie Start time Last Medication Dose Route Stop Time Status Admin Acetaminophen 650 MG .STK-MED ONE 09/10 0058 DC PO 09/10 0059 Acetaminophen 650 MG Q6P PRN 08/30 0015 AC 09/10 PO 0101 Albuterol Sulfate 3 ML Q4H PRN 09/05 1330 AC 09/07 INH 1406 Amlodipine Besylate 10 MG DAILY 08/30 1000 AC 09/09 PO 1234 Atorvastatin Calcium 20 MG DAILY 08/30 1000 AC 09/09 PO 1230 Cholecalciferol 1,000 IU DAILY 08/30 1000 AC 09/09 PO 1229 Docusate Sodium 100 MG BID 08/30 1000 AC 09/09 PO 2220 Epoetin Earnest 3,000 UNIT MoWeFr PRN 09/09 0915 AC IV Epoetin Earnest 2,000 UNIT MoWeFr PRN 09/09 0915 AC IV Erythromycin 1 ANI AT BEDTIME 08/30 2200 AC 09/09 OPH 2220 Ezetimibe 10 MG DAILY 08/30 1000 AC 09/09 PO 1230 Ferrous Sulfate 325 MG BID 08/30 1000 AC 09/09 PO 2220 Heparin Sodium 5,000 UNIT Q8 08/30 0600 AC 09/10 (Porcine) SC 0542 Hydralazine HCl 100 MG BID 08/30 1000 AC 09/09 PO 2219 Isosorbide 60 MG DAILY 08/30 1000 AC 09/09 Mononitrate PO 1233 Labetalol HCl 300 MG BID 08/30 1000 AC 09/09 PO 2219 Levothyroxine Sodium 0.05 MG DAILY AC 08/30 0700 AC 09/10 PO 0542 Patient Own 1 UNIT Q8P PRN 08/30 0115 AC 08/30 Medication TOP 1946 Polyethylene Glycol 17 GM DAILY 08/30 1000 AC 09/08 PO 1031 Senna 187 MG DAILY 08/30 1000 AC 09/09 PO 1230 Last 24 Hrs of Lab/Jamel Results Last 24 Hrs of Labs/Mics: Laboratory Tests 09/10/16 0913: Sodium Cancelled, Potassium Cancelled, Chloride Cancelled, Carbon Dioxide Cancelled, Anion Gap Cancelled, BUN Cancelled, Creatinine Cancelled, BUN/ Creatinine Ratio Cancelled 09/09/16 1508: Anion Gap 12, Estimated GFR 20 L, BUN/Creatinine Ratio 12.0 Assessment/Plan Assessment: Patient is a 86 y/o M with PMH HTN, HLD, CAD S/P CABG, hypothyroidism, CK D, anemia, GI bleed, history of colon cancer S/P resection, HFpEF, chronic pain on pain stimulator, ROBYN not on CPAP, on nighttime oxygen was admitted for worsening creatinine levels in his recent blood work. He was also being treated for balance issues and hallucinations by his PCP. Assessment and plan: 1. 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 Initial thought was that his creatinine might get better with the placement of Cruz. However creatinine has been worsening, no clear evidence of nephrotoxic insults. * Patient received dialysis yesterday, next dialysis on Monday * Creatinine yesterday improved to 3 * No BEP today * Potassium 4.1 from yesterday * Pending C3, C4, MPO and PR3 ANCA, and anti-GBM. DORA negative * seen by urologist yesterday, he may have retention related to BPH. Plan is to keep cruz until creatinine reaches baseline then dc. * Cruz catheter continued * Holding Lasix for now * Avoid nephrotoxic medications * Urine protein, creatinine and microalbumin sent * Elevated [place] and lambda light chains * Nephrology on board 2. Aspiration pneumonia : Now requiring 5 L of oxygen * No white count, afebrile * Watch off antibiotic * 1 L of fluid removed during last dialysis. Will require more fluid removal. 3. Hypertension: Stable * Continue labetalol, hydralazine and amlodipine * Holding Lasix for kidney injury * Continue all other home meds 4. Postherpetic neuralgia * Patient on Lyrica for pain control 5. Hallucinations: Resolved * Working with PT for balance problems 6. 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 Renal cysts on CT. Normal-size kidneys. * Creatinine 2.4 in June 2016, yesterday 3 * Was on temporary dialysis before * Fishing Game Warden is Dr. Zack Cross ([phone]) Diet - Heart healthy Diet DVT prophylaxis-ALP S/heparin Code Status -Full Code Problem List: 1. GURPREET (acute kidney injury) 2. CKD (chronic kidney disease) Pain Ratin Pain Location: na Pain Goal: Remain pain free Pain Plan: Tylenol Tomorrow's Labs & Rationales: BEP DVT/Prophylaxis: pharmacological
--- NOTE | 2016-09-10 10:49 | PN- Att Addend ---
Attending Addendum Attending Brief Note Patient seen and examined. Plan of care discussed with the medical team and the patient. Available lab work and radiology test reports were reviewed. Patient denies any recent fever chills or chest pains. He appears awake alert but confused and disoriented this morning. He continues to be on oxygen currently at 4 L of oxygen by nasal cannula. His last and also was yesterday. Vital Signs Date Time Temp Pulse Resp B/P Pulse O2 O2 Flow FiO2 Ox Delivery Rate 09/10 1041 70 120/60 09/10 1040 70 120/60 09/10 1040 70 120/60 09/10 1040 70 120/60 09/10 0648 98.1 70 18 120/60 94 Nasal 4.0L Cannula 09/10 0000 Nasal 5.0L Cannula 09/09 2345 98.9 70 20 152/72 95 Nasal 4.0L Cannula 09/09 2219 70 152/72 09/09 2219 70 152/72 09/09 1600 94 Nasal 2.0L Cannula 09/09 1424 98.0 68 20 120/78 92 09/09 1354 93 Nasal 5.0L Cannula 09/09 1234 80 168/70 09/09 1234 80 168/70 09/09 1233 80 168/70 09/09 1233 80 168/70 Intake & Output 09/10 1600 09/10 0800 09/10 0000 Intake Total 100 100 Output Total 125 326 Balance -25 -226 Intake, Oral 100 100 Output, Stool 1 Output, Urine 125 325 Patient 235 lb Weight Exam: General: Patient is lethargic and awake and lethargic partially oriented without any distress; his confusion seems to have improved. CVS: S1 plus S2 without any murmur or gallops Chest: Few scattered crepitation without any wheeze. There is no respiratory distress. Abdomen: Soft nontender, bowel sound present, no guarding or rebound METAL WEIGHER: Awake alert oriented without any focal neuro deficit and follows command appropriately Extremities: No edema; no clubbing or cyanosis noted Laboratory Tests 09/10 09/09 0913 1508 Chemistry Sodium (137 - 145 mmol/L) Cancelled 140 Potassium (3.5 - 5.1 mmol/L) Cancelled 4.1 Chloride (98 - 107 mmol/L) Cancelled 100 Carbon Dioxide (22 - 30 mmol/L) Cancelled 28 Anion Gap (5 - 16) Cancelled 12 BUN (9 - 20 mg/dL) Cancelled 36 H Creatinine (0.7 - 1.2 mg/dL) Cancelled 3.0 H Estimated GFR (>60 ml/min) 20 L BUN/Creatinine Ratio (7 - 25 %) Cancelled 12.0 Chest x-ray done September 09 1. Interval placement of a large bore right jugular central venous catheter which is visualized terminating within the right atrium. Otherwise, no significant interval changes in the appearance of the chest. 2. No pneumothoraces. 3. Persistent elevation of the left hemidiaphragm. Left basilar opacification may reflect atelectasis. Superimposed infection cannot be excluded in the appropriate clinical setting. Modified barium study showed normal swallowing function Assessment * Acute and chronic renal failure- patient had 3 hemodialysis so far with improvement in creatinine and potassium * Rule out CHF given the patient's tachypnea and increasing hypoxia; recent x- rays do not show any acute CHF * Hyperkalemia- continue hemodialysis; potassium has improved * Recent diagnosis of pneumonia- patient received short course of Unasyn which was discontinued due to fears of interstitial nephritis. Patient currently is afebrile. * Hypoxia- continue incentive spirometry * Confusion and delirium Plan * Continue to monitor respiratory status; taper oxygen as tolerate; patient needs fluid removal during dialysis * Follow-up lab work which will be done during dialysis * Incentive spirometry * Frequent reorientation; out of bed to chair and ambulate with assist
[2016-09-10 15:06] VITALS: BP 134/58
[2016-09-10 22:00] VITALS: BP 160/70
[2016-09-11 07:02] VITALS: BP 140/66
--- NOTE | 2016-09-11 09:11 | PN- Housestaff ---
Subjective Follow-up For: Acute on chronic kidney injury Aspiration pneumonia Complaints: no complaints Subjective: Patient is alert awake and oriented 3. Offers no complaints. Review of Systems Constitutional: Reports: no symptoms. Objective Last 24 Hrs of Vital Signs/I&O Vital Signs Date Time Temp Pulse Resp B/P Pulse O2 O2 Flow FiO2 Ox Delivery Rate 09/11 0702 98.2 86 20 140/66 96 Nasal 4.0L Cannula 09/11 0000 Nasal 5.0L Cannula 09/10 2226 98.0 09/10 220 98.0 92 16 160/70 97 Nasal 2.0L Cannula 09/10 2140 92 16 160/70 09/10 1600 Nasal 5.0L Cannula 09/10 1506 98.3 66 20 134/58 95 09/10 1158 93 Nasal 5.0L Cannula 09/10 1041 70 120/60 09/10 1040 70 120/60 09/10 1040 70 120/60 09/10 1040 70 120/60 Intake & Output 09/11 1600 09/11 0800 09/11 0000 Intake Total 250 480 Output Total 150 Balance 250 330 Intake, Oral 250 480 Output, Urine 150 Physical Exam General Appearance: Alert, Oriented X3, Cooperative, No Acute Distress HEENT: Mucous Membr. moist/pink Cardiovascular: Regular Rate, Normal S1, Normal S2 Lungs: decreased AE bibasilarly Abdomen: Normal Bowel Sounds, Soft, No Tenderness Extremities: No Edema, Normal Pulses Current Medications: Current Medications Sig/Tiffanie Start time Last Medication Dose Route Stop Time Status Admin Acetaminophen 650 MG Q6P PRN 08/30 0015 AC 09/10 PO 0101 Albuterol Sulfate 3 ML Q4H PRN 09/05 1330 DC 09/07 INH 1406 Amlodipine Besylate 10 MG DAILY 08/30 1000 AC 09/10 PO 1040 Atorvastatin Calcium 20 MG DAILY 08/30 1000 AC 09/10 PO 1040 Cholecalciferol 1,000 IU DAILY 08/30 1000 AC 09/10 PO 1040 Docusate Sodium 100 MG BID 08/30 1000 AC 09/10 PO 2141 Epoetin Earnest 3,000 UNIT MoWeFr PRN 09/09 0815 AC IV Epoetin Earnest 2,000 UNIT MoWeFr PRN 09/09 914 AC IV Erythromycin 1 ANI AT BEDTIME 08/30 2200 AC 09/10 OPH 2203 Ezetimibe 10 MG DAILY 08/30 1000 AC 09/10 PO 1040 Ferrous Sulfate 325 MG BID 08/30 1000 AC 09/10 PO 2141 Heparin Sodium 5,000 UNIT Q8 08/30 0600 AC 09/11 (Porcine) SC 0634 Hydralazine HCl 100 MG BID 08/30 1000 AC 09/10 PO 2141 Isosorbide 60 MG DAILY 08/30 1000 AC 09/10 Mononitrate PO 1041 Labetalol HCl 300 MG BID 08/30 1000 AC 09/10 PO 2140 Levothyroxine Sodium 0.05 MG DAILY AC 08/30 0700 AC 09/11 PO 0634 Patient Own 1 UNIT Q8P PRN 08/30 0115 AC 08/30 Medication TOP 1946 Polyethylene Glycol 17 GM DAILY 08/30 1000 AC 09/10 PO 1041 Senna 187 MG DAILY 08/30 1000 AC 09/10 PO 1040 Last 24 Hrs of Lab/Jamel Results Last 24 Hrs of Labs/Mics: not done Assessment/Plan Assessment: Patient is a 86 y/o M with PMH HTN, HLD, CAD S/P CABG, hypothyroidism, CK D, anemia, GI bleed, history of colon cancer S/P resection, HFpEF, chronic pain on pain stimulator, ROBYN not on CPAP, on nighttime oxygen was admitted for worsening creatinine levels in his recent blood work. He was also being treated for balance issues and hallucinations by his PCP. Assessment and plan: 1. 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 * Next dialysisis tomorrow Monday * Repeat BEP tomorrow * Pending C3, C4, MPO and PR3 ANCA, and anti-GBM. DORA negative * Plan is to keep cruz until creatinine reaches baseline then dc. * Holding Lasix for now * Avoid nephrotoxic medications * Elevated [place] and lambda light chains * Nephrology on board * Urology on board 2. Aspiration pneumonia : Now requiring 4 L of oxygen * No white count, afebrile * Watch off antibiotics * Next Dialysis is tomorrow * 3. Hypertension: Stable * Continue labetalol, hydralazine and amlodipine * Holding Lasix for kidney injury * Continue all other home meds 4. Postherpetic neuralgia * Patient on Lyrica for pain control 5. Hallucinations: Resolved * Working with PT for balance problems 6. 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 Renal cysts on CT. Normal-size kidneys. * Creatinine 2.4 in June 2016, yesterday 3 * Was on temporary dialysis before * Can Tester is Dr. Zack Cross ([phone]) Diet - Heart healthy Diet DVT prophylaxis-ALP S/heparin Code Status -Full Code Problem List: 1. Acute on chronic renal failure 2. Aspiration pneumonia Pain Ratin Pain Location: n/a Pain Goal: n/a Pain Plan: n/a Tomorrow's Labs & Rationales: CBC-H&H dropping BEP-Kidney function
--- NOTE | 2016-09-11 10:55 | PN- Att Addend ---
Attending Addendum Attending Brief Note Patient seen and examined. Plan of care discussed with the medical team and the patient. Available lab work and radiology test reports were reviewed. Patient denies any recent fever chills or chest pains. He appears awake alert and oriented this morning. His confusion has decreased. He continues to be on oxygen currently at 4 L of oxygen by nasal cannula. His last hemodialysis was yesterday with removal of 1.5 L of fluid. Vital Signs Date Time Temp Pulse Resp B/P Pulse O2 O2 Flow FiO2 Ox Delivery Rate 09/11 1049 140/68 09/11 1049 140/68 09/11 1049 1409/11 1048 140/68 09/11 0702 98.2 86 20 140/66 96 Nasal 4.0L Cannula 09/11 0000 Nasal 5.0L Cannula 09/10 2226 98.0 09/10 2200 98.0 92 16 160/70 97 Nasal 2.0L Cannula 09/10 2140 92 16 160/70 09/10 1600 Nasal 5.0L Cannula 09/10 1506 98.3 66 20 134/58 95 09/10 1158 93 Nasal 5.0L Cannula Intake & Output 09/11 1600 09/11 0800 09/11 0000 Intake Total 250 480 Output Total 150 Balance 250 330 Intake, Oral 250 480 Output, Urine 150 Exam: General: Patient is lethargic and awake and l oriented without any distress; his confusion seems to have improved. CVS: S1 plus S2 without any murmur or gallops Chest: Few scattered crepitation without any wheeze. There is no respiratory distress. Abdomen: Soft nontender, bowel sound present, no guarding or rebound RESEARCH ENVIRONMENTAL ENGINEER: Awake alert oriented without any focal neuro deficit and follows command appropriately Extremities: No edema; no clubbing or cyanosis noted No new labs done today. Assessment * Acute and chronic renal failure- patient currently on hemodialysis throughcatheter h with improvement in creatinine and potassium * Rule out CHF given the patient's tachypnea and increasing hypoxia; recent x- rays do not show any acute CHF, however patient remains on oxygen * Hyperkalemia- continue hemodialysis; potassium has improved * Recent diagnosis of pneumonia- patient received short course of Unasyn which was discontinued due to fears of interstitial nephritis. Patient currently is afebrile. * Hypoxia- continue incentive spirometry * Confusion and delirium Plan * Continue to monitor respiratory status; taper oxygen as tolerate; * Follow-up lab work which will be done during dialysis * Incentive spirometry * Frequent reorientation; out of bed to chair and ambulate with assist
[2016-09-11 15:41] VITALS: BP 154/68
[2016-09-11 22:46] VITALS: BP 152/70
[2016-09-12 07:08] VITALS: BP 136/70
--- NOTE | 2016-09-12 08:03 | PN- Housestaff ---
[facility] 09[facility] 0753: Subjective Follow-up For: Acute on chronic renal failure ? CHF Hyperkalemia Hypoxia/aspiration pneumonia Complaints: no complaints Subjective: Patient appears less confused this morning. He is awake and oriented 3. Continues to be on 5 L oxygen. Last dialysis was on Monday with removal of 1.5 L of fluid. Improvement in creatinine and BUN levels. Review of Systems Constitutional: Reports: malaise, weakness. EENTM: Reports: no symptoms. Cardiovascular: Reports: no symptoms. Respiratory: Reports: short of breath. Gastrointestinal: Reports: no symptoms. Genitourinary: Reports: no symptoms. Musculoskeletal: Reports: no symptoms. Skin: Reports: no symptoms. Neurological/Psychological: Reports: no symptoms. Objective Last 24 Hrs of Vital Signs/I&O Vital Signs Date Time Temp Pulse Resp B/P Pulse O2 O2 Flow FiO2 Ox Delivery Rate 09/12 0708 98.1 62 22 136/70 93 Nasal 5.0L Cannula 09/12 0000 95 Nasal 3.0L Cannula 09/11 2246 98.1 61 20 152/70 95 Nasal 5.0L Cannula 09/11 2132 60 138/68 09/11 2132 60 138/68 09/11 1600 95 Nasal 5.0L Cannula 09/11 1541 98.0 67 20 154/68 96 09/11 1049 140/68 09/11 1049 140/68 09/11 1049 14/68 09/11 1048 140/68 09/11 0800 96 Nasal 5.0L Cannula Intake & Output 09/12 0800 09/12 0000 09/11 1600 Intake Total 250 400 300 Output Total 275 100 175 Balance -25 300 125 Intake, Oral 250 400 300 Number 1 Bowel Movements Output, Urine 275 100 175 Patient 105.687 kg Weight Physical Exam General Appearance: Alert, Oriented X3, Cooperative, No Acute Distress Skin: No Rashes, No Breakdown, No Significant Lesion HEENT: Atraumatic, PERRLA, EOMI Neck: Supple, No JVD Lymphatic: Cervical nl Cardiovascular: Regular Rate, Normal S1, Normal S2, No Murmurs Lungs: occasional rhonchi Abdomen: Normal Bowel Sounds, Soft, No Tenderness Neurological: Normal Speech, Normal Tone Extremities: No Clubbing, No Cyanosis, No Edema Current Medications: Current Medications Sig/Tiffanie Start time Last Medication Dose Route Stop Time Status Admin Acetaminophen 650 MG .STK-MED ONE 09/11 2347 DC PO 09/11 2348 Acetaminophen 650 MG .STK-MED ONE 09/11 1808 DC PO 09/11 1809 Acetaminophen 650 MG Q6P PRN 08/30 0015 AC 09/11 PO 2350 Amlodipine Besylate 10 MG DAILY 08/30 1000 AC 09/11 PO 1049 Atorvastatin Calcium 20 MG DAILY 08/30 1000 AC 09/11 PO 1049 Cholecalciferol 1,000 IU DAILY 08/30 1000 AC 09/11 PO 1049 Docusate Sodium 100 MG BID 08/30 1000 AC 09/11 PO 2131 Epoetin Earnest 3,000 UNIT MoWeFr PRN 09/09 0915 AC IV Epoetin Earnest 2,000 UNIT MoWeFr PRN 09/09 0915 AC IV Erythromycin 1 ANI AT BEDTIME 08/30 2200 AC 09/11 OPH 2131 Ezetimibe 10 MG DAILY 08/30 1000 AC 09/11 PO 1049 Ferrous Sulfate 325 MG BID 08/30 1000 AC 09/11 PO 2131 Heparin Sodium 5,000 UNIT Q8 08/30 0600 AC 09/12 (Porcine) SC 0518 Hydralazine HCl 100 MG BID 08/30 1000 AC 09/11 PO 1048 Isosorbide 60 MG DAILY 08/30 1000 AC 09/11 Mononitrate PO 1049 Labetalol HCl 300 MG BID 08/30 1000 AC 09/11 PO 1049 Levothyroxine Sodium 0.05 MG DAILY AC 08/30 0700 AC 09/12 PO 0518 Patient Own 1 UNIT Q8P PRN 08/30 0115 AC 09/11 Medication TOP 1814 Polyethylene Glycol 17 GM DAILY 08/30 1000 AC 09/11 PO 1050 Senna 187 MG DAILY 08/30 1000 AC 09/11 PO 1049 Last 24 Hrs of Lab/Jamel Results Last 24 Hrs of Labs/Mics: j Assessment/Plan Assessment: Patient is a 86 y/o M with PMH HTN, HLD, CAD S/P CABG, hypothyroidism, CK D, anemia, GI bleed, history of colon cancer S/P resection, HFpEF, chronic pain on pain stimulator, ROBYN not on CPAP, on nighttime oxygen was admitted for worsening creatinine levels in his recent blood work. He was also being treated for balance issues and hallucinations by his PCP. Assessment and plan: 1. 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 * Next dialysisis today. Plan to attempt ultrafiltration of 2-2.5 L if patient can tolerates and see if this improves his hypoxia. * Creatinine improved to 3 . BEPam pending * Pending C3, C4, MPO and PR3 ANCA, and anti-GBM. DORA negative * Plan is to keep cruz until creatinine reaches baseline then dc. * Holding Lasix for now * Avoid nephrotoxic medications * Elevated [place] and lambda light chains * Nephrology on board * Urology recommended to keep the Cruz in until creatinine reaches baseline and then DC. BPH could be retention contributing factor. There is no obstruction seen on ultrasound. 2. Aspiration pneumonia : Now requiring 4 L of oxygen * No white count, afebrile * Watch off antibiotics * Next Dialysis is tomorrow * We'll try to taper down the oxygen * Incentive spirometry encouraged * Patient encouraged to out of bed to chair 3. Hypertension: Stable * Continue labetalol, hydralazine and amlodipine * Holding Lasix for kidney injury * Continue all other home meds 4. Postherpetic neuralgia * Patient on Lyrica for pain control 5. Hallucinations: Resolved * Working with PT for balance problems 6. 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 Renal cysts on CT. Normal-size kidneys. * Creatinine 2.4 in June 2016, yesterday 3 * Was on temporary dialysis before * Manager Generation is Dr. Zack Cross ([phone]) Diet - Heart healthy Diet DVT prophylaxis-ALP S/heparin Code Status -Full Code Problem List: 1. Aspiration pneumonia 2. CKD (chronic kidney disease) 3. Acute hypoxemic respiratory failure 4. CHF (congestive heart failure) 5. Hyperkalemia 6. GURPREET (acute kidney injury) Pain Ratin Pain Location: na Pain Goal: Remain pain free Pain Plan: tylenol Tomorrow's Labs & Rationales: bep... gurpreet on ckd KRYSTYNA [place] MD 09/12/16 1428: Attending MD Review Statement Attending Statement Attending Statement: examined this patient, discuss w/resident/PA/GPS FIELD DATA COLLECTOR, agreed w/resident/PA/GPS FIELD DATA COLLECTOR, reviewed EMR data (avail), discussed with nursing, discussed with case mgmt, amended to note Attending Assessment/Plan: Patient seen and examined. Sitting up comfortably in the chair not in acute distress. Denies chest pain or shortness of breath. Denies palpitations. Patient reports that what sounds like drug-induced respiratory failure he has been on nocturnal oxygen at 2 L/m. He has a history of obstructive sleep apnea but does not utilize CPAP therapy because he cannot tolerate the mask. He was admitted on account of acute on chronic kidney injury noted on outpatient labs. He is currently requiring about 5 L of oxygen to maintain saturation. On examination he is not in any respiratory distress. He has poor inspiration effort however lungs are clear bilaterally. Abdomen is soft and nontender. He has a peripheral edema. He has no jugular venous distention. His discussed with nephrology service. Patient continues to remain oliguric. Recommendations: -His hypoxia is likely chronic due to obesity hypoventilation and obstructive sleep apnea. -Continue to encourage use of incentive spirometry. -Case discussed with the nephrology service. Patient will have additional ultrafiltration today. -Wean off oxygen supplementation as tolerated postdialysis. -Recommend outpatient follow-up with the pulmonary service, however if oxygenation does not improve or gets worse consider imaging with VQ scan and inpatient pulmonary consultation.
--- NOTE | 2016-09-12 10:05 | PN- Nephrology ---
Assessment/Plan Assessment: Assessment: 1.GURPREET - as noted in previous notes, it is not clear whether or not this is ESRD. His serum creatinine in June was 2.4. 2. Hematuria - Resolved. Likely 2/2 cruz placement rather than acute GN. 3. Urinary retention - Still with significant UOP. Has cruz in. 4. 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 He is followed by Dr. Zack Cross 5. Hypoxia -given the fact that it is hoped his kidneys will recover function, I would not plan on a CT scan with contrast to exclude pulmonary embolus. With his advanced age and known chronic kidney disease, he would be a greater risk for contrast-induced nephropathy 6. Coronary artery disease 7. History of hypertension 8. Urinary retention. If he did experience episodes of urinary retention that had gone unnoticed, this could have led to his progressive renal functional loss. He had an episode of acute on chronic kidney injury requiring hemodialysis in the past. His problems with urinary retention were noted at that time. He only had 275 mL of urine out yesterday with the Cruz catheter in place. 9. Anemia. He is on iron sulfate. This generally is worthless in people with CKD stage IV or 5 disease. It is usually not absorbed and, if anything, causes constipation. It has the dual effect of being poorly tolerated and ineffective. Suggestion: 1. Will plan on hemodialysis today. 2. Will attempt ultrafiltration 2-2.5 L as he tolerates and see if this does not improve his hypoxia. 3. Would stop the iron sulfate Subjective Subjective: Patient is sitting up in a chair. He feels well. He offers no complaints. Review of Systems EENTM: Reports: hearing changes (this is not new). Objective Vital Signs and I&Os Vital Signs Date Time Temp Pulse Resp B/P Pulse O2 O2 Flow FiO2 Ox Delivery Rate 09/12 09 72 140/70 09/12 0926 72 140/70 09/12 0926 72 140/70 09/12 0925 72 140/70 09/12 0708 98.1 62 22 136/70 93 Nasal 5.0L Cannula 09/12 0000 95 Nasal 3.0L Cannula 09/11 2246 98.1 61 20 152/70 95 Nasal 5.0L Cannula 09/112 60 138/68 09/112 60 138/68 09/11 1600 95 Nasal 5.0L Cannula 09/11 1541 98.0 67 20 154/68 96 09/11 1049 140/68 09/11 1049 140/68 09/11 1049 09/11 1048 140 Intake & Output 09/12 1600 09/12 0400 09/11 1600 09/11 0400 09/10 1600 09/10 0400 Intake Total 250 400 550 480 220 100 Output Total 275 100 175 150 275 326 Balance -25 300 375 330 -55 -226 Intake, Oral 250 400 550 480 220 100 Number 1 0 Bowel Movements Output, Stool 1 Output, Urine 275 100 175 150 275 325 Patient 233 lb 235 lb Weight Physical Exam General Appearance: well developed/nourished, no apparent distress, alert, awake Head: atraumatic, normal appearance Ears, Nose, Throat: hearing decreased Neck: normal inspection, supple, trachea mid line Respiratory: lungs clear, decreased breath sounds Cardiovascular: regular rate/rhythm Abdomen: soft, non-tender, no organomegaly, no abdominal bruits Back: no vertebral tenderness, no CVA tenderness Extremities: normal inspection, no edema Neurologic/Psychiatric: awake, alert, oriented x 3, slightly hard of hearing, moving all extremities Skin: intact Current Medications: Current Medications Sig/Tiffanie Start time Last Medication Dose Route Stop Time Status Admin Acetaminophen 650 MG .STK-MED ONE 09/11 2347 DC PO 09/11 2348 Acetaminophen 650 MG .STK-MED ONE 09/11 1808 DC PO 09/11 1809 Acetaminophen 650 MG Q6P PRN 08/30 0015 AC 09/11 PO 2350 Amlodipine Besylate 10 MG DAILY 08/30 1000 AC 09/12 PO 09 Atorvastatin Calcium 20 MG DAILY 08/30 1000 AC 09/12 PO 0924 Cholecalciferol 1,000 IU DAILY 08/30 1000 AC 09/12 PO 0924 Docusate Sodium 100 MG BID 08/30 1000 AC 09/12 PO 0924 Epoetin Earnest 3,000 UNIT MoWeFr PRN 09/09 914 IV Epoetin Earnest 2,000 UNIT MoWeFr PRN 09/09 914 IV Erythromycin 1 ANI AT BEDTIME 08/30 2200 AC 09/11 OPH 2131 Ezetimibe 10 MG DAILY 08/30 1000 AC 09/12 PO 0925 Ferrous Sulfate 325 MG BID 08/30 1000 AC 09/12 PO 0925 Heparin Sodium 5,000 UNIT Q8 08/30 0600 AC 09/12 (Porcine) SC 0518 Hydralazine HCl 100 MG BID 08/30 1000 AC 09/12 PO 0926 Isosorbide 60 MG DAILY 08/30 1000 AC 09/12 Mononitrate PO 0926 Labetalol HCl 300 MG BID 08/30 1000 AC 09/12 PO 0926 Levothyroxine Sodium 0.05 MG DAILY AC 08/30 0700 AC 09/12 PO 0518 Patient Own 1 UNIT Q8P PRN 08/30 0115 AC 09/11 Medication TOP 1814 Polyethylene Glycol 17 GM DAILY 08/30 1000 AC 09/11 PO 1050 Senna 187 MG DAILY 08/30 1000 AC 09/12 PO 0925 Results Pertinent Lab Results: Laboratory Tests 09/10 1508 Chemistry Sodium (137 - 145 mmol/L) Cancelled 140 Potassium (3.5 - 5.1 mmol/L) Cancelled 4.1 Chloride (98 - 107 mmol/L) Cancelled 100 Carbon Dioxide (22 - 30 mmol/L) Cancelled 28 Anion Gap (5 - 16) Cancelled 12 BUN (9 - 20 mg/dL) Cancelled 36 H Creatinine (0.7 - 1.2 mg/dL) Cancelled 3.0 H Estimated GFR (>60 ml/min) 20 L BUN/Creatinine Ratio (7 - 25 %) Cancelled 12.0 Imaging/Other Studies: PATIENT: IRIS DREW SR PRESENT AGE: 86 PATIENT ACCOUNT NO: [id number] : 31 LOCATION: [facility] ORDERING PHYSICIAN: MOO VELASCO MD SERVICE DATE: 08/30/16 EXAM TYPE: US - US-RENAL/KIDNEY EXAMINATION: US RETROPERITONEAL COMPLETE (RENAL) CLINICAL INFORMATION: 86-year-old male with acute kidney injury. Suspected obstruction. COMPARISON: CT of the abdomen and pelvis done on 10/20/2015. TECHNIQUE: Real-time imaging of the kidneys and bladder. FINDINGS: RIGHT KIDNEY: 10.6 x 4.3 x 4.9 cm (SAG x AP x TRV). Marked diffuse cortical thinning is noted throughout the entire right kidney without evidence of any hydronephrosis. There are 3 cortical renal cysts identified, the largest seen at the inferior pole, measures 3.6 x 2.0 x 2.8 cm. The second smaller cortical cyst is noted at the mid pole, measures 2.1 x 1.9 x 2.0 cm. The superior polar cyst measures 1.8 x 1.6 x 1.8 cm. LEFT KIDNEY: 11.1 x 6.0 x 6.3 cm (SAG x AP x TRV). Moderate diffuse cortical thinning is present with no evidence of any hydronephrosis. Superimposed multiple cystic abnormalities are present, one at the upper pole measures 2.0 x 1.8 x 2.5 cm, while the cystic abnormality seen at the mid pole measures 2.5 x 2.0 x 2.1 cm. BLADDER: Bladder is decompressed. There is a Cruz catheter present. IMPRESSION: 1. Bilateral normal size kidneys with evidence of marked diffuse cortical thinning on the right and moderate diffuse cortical thinning on the left with superimposed multiple cystic abnormalities, as described above. 2. No sonographic evidence of hydronephrosis on either side. DICTATED BY: KATHARINA CRUZ MD DATE/TIME DICTATED:08/30/[address]852 RO[address] EQUIPMENT OPERATOR:ROBERT DATE/TIME TRANSCRIBED:08/30/16852 CONFIDENTIAL, DO NOT COPY WITHOUT APPROPRIATE AUTHORIZATION.
[2016-09-12 15:18] LABS: ABSOLUTE BASOPHIL COUNT 0 /CUMM (0.0-0.2); ABSOLUTE EOSINOPHIL COUNT 0.2 /CUMM (0.0-0.7); ABSOLUTE GRANULOCYTE CT 3.8 /CUMM (1.4-6.5); ABSOLUTE LYMPH COUNT 0.4 /CUMM (1.2-3.4); ABSOLUTE MONOCYTE COUNT 0.5 /CUMM (0.10-0.60); BASOPHIL % 0.2 % (0.0-2.0); EOSINOPHIL % 4.7 % (0-5); GRANULOCYTE % 77.8 % (42.2-75.2); HEMATOCRIT 26.8 % (42-52); MEAN CORPUSCULAR HGB 29.1 PG (27.0-31.0); MEAN CORPUSCULAR HGB CONC 32.9 G/DL (33.0-37.0); MEAN CORPUSCULAR VOLUME 88.5 FL (80.0-94.0); MEAN PLATELET VOLUME 8.1 FL (7.4-10.4); PLATELET COUNT 173 /CUMM (130-400); RBC DISTRIBUTION WIDTH 13.8 % (11.5-14.5); RED BLOOD CELL CT 3.03 /CUMM (4.70-6.10); WHITE BLOOD CELL COUNT 4.9 /CUMM (4.8-10.8)
[2016-09-12 22:58] VITALS: BP 138/62
[2016-09-13 06:54] VITALS: BP 130/70
--- NOTE | 2016-09-13 11:00 | PN- Att Addend ---
Attending Addendum Attending Brief Note Patient seen and examined. Resting comfortably and not in any acute distress. No issues overnight reported by nursing staff. Denies chest pain or shortness of breath. Denies palpitations. Denies cough. Was saturating 97% on 3 L of oxygen at rest. Vital Signs Date Time Temp Pulse Resp B/P Pulse O2 O2 Flow FiO2 Ox Delivery Rate 09/13 0911 78 140/64 09/13 0911 78 140/64 09/13 0910 78 140/64 09/13 0910 78 140/64 09/13 0654 97.8 72 20 130/70 96 Nasal Cannula 09/13 0000 Nasal 3.0L Cannula 09/12 2258 98.7 76 20 138/62 96 Nasal Cannula 09/12 2218 138/62 09/12 2217 138/62 09/12 1600 Nasal 3.0L Cannula Gen. appearance: Not in any distress Neck: No jugular venous distention Heart: S1-S2 regular Lungs: Clear to auscultation bilaterally Abdomen: Soft, nontender with normal bowel sounds Extremities: No pedal edema Skin: Intact with no rashes. Laboratory Tests 09/13/16 0730: Anion Gap 10, Estimated GFR 16 L, BUN/Creatinine Ratio 8.6 09/12/16 1245: Anion Gap 14, Estimated GFR 13 L, BUN/Creatinine Ratio 12.0, CBC w Diff NO MAN DIFF REQ, RBC 3.03 L, MCV 88.5, MCH 29.1, RDW 13.8, MPV 8.1, Gran % 77.8 H, Lymphocytes % 7.8 L, Monocytes % 9.5 H, Eosinophils % 4.7, Basophils % 0.2, Absolute Granulocytes 3.8, Absolute Lymphocytes 0.4 L, Absolute Monocytes 0.5, Absolute Eosinophils 0.2, Absolute Basophils 0, PUBS MCHC 32.9 L Problems: 1. Acute on chronic kidney disease. 2. Hypoxic respiratory insufficiency; chronic 3. Postherpetic neuralgia 4. Hypertension Plan: -Oxygen requirement is improving. Patient is on 2 L at nighttime at home. -Continue to wean down oxygen supplementation as tolerated. -Continue hemodialysis as recommended by the nephrology service. Patient remains oliguric putting out 525 mL of urine yesterday. -Follow-up with the nephrology service regarding discharge planning.
--- NOTE | 2016-09-13 11:01 | PN- Housestaff ---
Subjective Follow-up For: 1. Acute on chronic kidney disease. 2. Hypoxic respiratory insufficiency; chronic 3. Postherpetic neuralgia 4. Hypertension Review of Systems Constitutional: Reports: see HPI. Objective Last 24 Hrs of Vital Signs/I&O Vital Signs Date Time Temp Pulse Resp B/P Pulse O2 O2 Flow FiO2 Ox Delivery Rate 09/13 0911 78 140/64 09/13 0911 78 140/64 09/13 0910 78 140/64 09/13 0910 78 140/64 09/13 0654 97.8 72 20 130/70 96 Nasal Cannula 09/13 0000 Nasal 3.0L Cannula 09/12 2258 98.7 76 20 138/62 96 Nasal Cannula 09/12 2218 138/62 09/12 2217 138/62 09/12 1600 Nasal 3.0L Cannula Intake & Output 09/13 1600 09/13 0800 09/13 0000 Intake Total 240 240 Output Total 50 250 Balance 190 -10 Intake, Oral 240 240 Output, Urine 50 250 Patient 232 lb Weight Physical Exam General Appearance: Alert, Oriented X3 Assessment/Plan Assessment: Patient is a 86 y/o M with PMH HTN, HLD, CAD S/P CABG, hypothyroidism, CK D, anemia, GI bleed, history of colon cancer S/P resection, HFpEF, chronic pain on pain stimulator, ROBYN not on CPAP, on nighttime oxygen was admitted for worsening creatinine levels in his recent blood work. He was also being treated for balance issues and hallucinations by his PCP. Assessment and plan: 1. 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 Aspiration pneumonia 3. Hypertension 4 . postherpetic neuralgia Plan -Creatinine 3.6 today.Would ask nephrology staff for the next day of HD.(placed a call waiting call back) -pending c3,c4,MPO and PR3 anca and anti GBM,ruchi negative -Holding Lasix for now Avoid nephrotoxic medications Elevated [place] and lambda light chains Nephrology on board Urology recommended to keep the Mims in until creatinine reaches baseline and then DC. BPH could be retention contributing factor. There is no obstruction seen on ultrasound. 2. Aspiration pneumonia : Now requring 2L oxygen No white count, afebrile Watch off antibiotics 3. Hypertension: Stable * Continue labetalol, hydralazine and amlodipine * Holding Lasix for kidney injury * Continue all other home meds 4. Postherpetic neuralgia * Patient on Lyrica for pain control 5. Hallucinations: Resolved * Working with PT for balance problems 6. 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 Renal cysts on CT. Normal-size kidneys. * Creatinine 2.4 in June 2016, yesterday 3 * Was on temporary dialysis before * Deposition Reporter is Dr. Zack Cross ([phone]) Diet - Heart healthy Diet DVT prophylaxis-ALP S/heparin Code Status -Full Code Problem List: 1. CKD (chronic kidney disease) 2. Aspiration pneumonia Pain Ratin Pain Location: po tylenol as needed Pain Goal: Remain pain free Pain Plan: po tylenol as needed Tomorrow's Labs & Rationales: cbc and bep
[2016-09-13 14:25] VITALS: BP 123/70
[2016-09-13 22:05] VITALS: BP 130/70
[2016-09-14 07:22] VITALS: BP 164/66
--- NOTE | 2016-09-14 09:53 | PN- Nephrology ---
Assessment/Plan Assessment: Assessment: 1.GURPREET - as noted in previous notes, it is not clear whether or not this is ESRD. His serum creatinine in June was 2.4. The increase in urine output is encouraging. 2. Hematuria - Resolved. Likely 2/2 cruz placement rather than acute GN. 3. Urinary retention - Still with significant UOP. Has cruz in. 4. 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 He is followed by Dr. Zack Cross 5. Hypoxia -this seems to be better 6. Coronary artery disease 7. History of hypertension 8. Urinary retention. 9. Anemia. 10. Volume status. According to the scales he gained 8 pounds in 2 days? This would imply gaining 3.6 kg. This is not documented in the intakes and outputs Suggestion: 1. Hemodialysis today. 2. Currently will likely limit ultrafiltration to 2 L today. 3. It is hoped that he will recover function and no longer need dialysis. 4. Continue with strict intakes and outputs and daily weights. Subjective Subjective: Patient seen at the beginning of hemodialysis. He does appear to be making more urine. Objective Vital Signs and I&Os Vital Signs Date Time Temp Pulse Resp B/P Pulse O2 O2 Flow FiO2 Ox Delivery Rate 09/14 0722 97.9 73 20 164/66 91 Nasal 1.5L Cannula 09/14 0000 Nasal 1.5L Cannula 09/13 2205 98.1 80 20 130/70 96 09/13 2045 60 128/80 09/13 2044 60 128/80 09/13 1600 95 Nasal 1.5L Cannula 09/13 1425 98.2 80 20 123/70 95 Intake & Output 09/14 1600 09/14 0400 09/13 1600 09/13 0400 09/12 0400 Intake Total 200 200 890 240 650 400 Output Total 400 151 250 275 100 Balance -200 200 739 -10 375 300 Intake, IV 0 Intake, Oral 200 200 890 240 650 400 Number 0 0 2 Bowel Movements Output, Stool 1 Output, Urine 400 150 250 275 100 Patient 240 lb 232 lb 233 lb Weight Physical Exam: General Appearance: well developed/nourished, no apparent distress, alert, awake Head: atraumatic, normal appearance Ears, Nose, Throat: hearing decreased Neck: normal inspection, supple, trachea mid line Respiratory: lungs clear, decreased breath sounds Cardiovascular: regular rate/rhythm Abdomen: soft, non-tender, no organomegaly, no abdominal bruits Back: no vertebral tenderness, no CVA tenderness Extremities: normal inspection, he does have sacral edema Neurologic/Psychiatric: awake, alert, oriented x 3, slightly hard of hearing, moving all extremities Current Medications: Current Medications Sig/Tiffanie Start time Last Medication Dose Route Stop Time Status Admin Acetaminophen 650 MG .STK-MED ONE 09/13 1641 DC PO 09/13 1642 Acetaminophen 650 MG Q6P PRN 08/30 0015 AC 09/13 PO 1647 Amlodipine Besylate 10 MG DAILY 08/30 1000 AC 09/13 PO 0911 Atorvastatin Calcium 20 MG DAILY 08/30 1000 AC 09/13 PO 0909 Cholecalciferol 1,000 IU DAILY 08/30 1000 AC 09/13 PO 0908 Docusate Sodium 100 MG BID 08/30 1000 AC 09/13 PO 204 Epoetin Earnest 3,000 UNIT MoWeFr PRN 09/09 0915 AC IV Epoetin Earnest 2,000 UNIT MoWeFr PRN 09/09 0915 AC IV Erythromycin 1 ANI AT BEDTIME 08/30 2200 AC 09/13 OPH 2045 Ezetimibe 10 MG DAILY 08/30 1000 AC 09/13 PO 0908 Heparin Sodium 5,000 UNIT Q8 08/30 0600 AC 09/14 (Porcine) SC 0539 Hydralazine HCl 100 MG BID 08/30 1000 AC 09/13 PO 2044 Isosorbide 60 MG DAILY 08/30 1000 AC 09/13 Mononitrate PO 0910 Labetalol HCl 300 MG BID 08/30 1000 AC 09/13 PO 2045 Levothyroxine Sodium 0.05 MG DAILY AC 08/30 0700 AC 09/14 PO 0539 Patient Own 1 UNIT Q8P PRN 08/30 0115 AC 09/13 Medication TOP 1649 Polyethylene Glycol 17 GM DAILY 08/30 1000 AC 09/13 PO 0912 Senna 187 MG DAILY 08/30 1000 AC 09/13 PO 0909 Results Pertinent Lab Results: Laboratory Tests 09/14 09/13 09/12 0612 0730 1245 Chemistry Sodium (137 - 145 mmol/L) 140 140 142 Potassium (3.5 - 5.1 mmol/L) 3.7 3.8 3.7 Chloride (98 - 107 mmol/L) 102 102 103 Carbon Dioxide (22 - 30 mmol/L) 26 28 24 Anion Gap (5 - 16) 11 10 14 BUN (9 - 20 mg/dL) 37 H 31 H 53 H Creatinine (0.7 - 1.2 mg/dL) 4.2 H 3.6 H 4.4 H Estimated GFR (>60 ml/min) 14 L 16 L 13 L BUN/Creatinine Ratio (7 - 25 %) 8.8 8.6 12.0 Hematology CBC w Diff NO MAN DIFF REQ WBC (4.8 - 10.8 /CUMM) 4.9 RBC (4.70 - 6.10 /CUMM) 3.03 L Hgb (14.0 - 18.0 G/DL) 8.8 L Hct (42 - 52 %) 26.8 L MCV (80.0 - 94.0 FL) 88.5 MCH (27.0 - 31.0 PG) 29.1 RDW (11.5 - 14.5 %) 13.8 Plt Count (130 - 400 /CUMM) 173 MPV (7.4 - 10.4 FL) 8.1 Gran % (42.2 - 75.2 %) 77.8 H Lymphocytes % (20.5 - 51.1 %) 7.8 L Monocytes % (1.7 - 9.3 %) 9.5 H Eosinophils % (0 - 5 %) 4.7 Basophils % (0.0 - 2.0 %) 0.2 Absolute Granulocytes (1.4 - 6.5 /CUMM) 3.8 Absolute Lymphocytes (1.2 - 3.4 /CUMM) 0.4 L Absolute Monocytes (0.10 - 0.60 /CUMM) 0.5 Absolute Eosinophils (0.0 - 0.7 /CUMM) 0.2 Absolute Basophils (0.0 - 0.2 /CUMM) 0 PUBS MCHC (33.0 - 37.0 G/DL) 32.9 L
[2016-09-14 10:18] LABS: ABSOLUTE BASOPHIL COUNT 0 /CUMM (0.0-0.2); ABSOLUTE EOSINOPHIL COUNT 0.3 /CUMM (0.0-0.7); ABSOLUTE GRANULOCYTE CT 4.5 /CUMM (1.4-6.5); ABSOLUTE LYMPH COUNT 0.4 /CUMM (1.2-3.4); ABSOLUTE MONOCYTE COUNT 0.5 /CUMM (0.10-0.60); BASOPHIL % 0.2 % (0.0-2.0); EOSINOPHIL % 5.1 % (0-5); GRANULOCYTE % 78.9 % (42.2-75.2); HEMATOCRIT 28.4 % (42-52); MEAN CORPUSCULAR HGB CONC 32.4 G/DL (33.0-37.0); MEAN CORPUSCULAR VOLUME 89.5 FL (80.0-94.0); MEAN PLATELET VOLUME 7.8 FL (7.4-10.4); PLATELET COUNT 185 /CUMM (130-400); RED BLOOD CELL CT 3.17 /CUMM (4.70-6.10); WHITE BLOOD CELL COUNT 5.7 /CUMM (4.8-10.8)
[2016-09-14 14:26] VITALS: BP 125/80
--- NOTE | 2016-09-14 14:43 | PN- Housestaff ---
Subjective Follow-up For: Acute on chronic kidney disease Possible aspiration pneumonia Hypertension Post herpetic neuralgia Hallucinations Subjective: Patient seen and examined. He is complaining of loose stools and looks less active. at bedside. Patient had some improvement in his urine output. His labs and vitals look stable. Patient expressed this am that he does not want to live anymore. He was evaluated by psyc Review of Systems Constitutional: Reports: see HPI. Objective Last 24 Hrs of Vital Signs/I&O Vital Signs Date Time Temp Pulse Resp B/P Pulse O2 O2 Flow FiO2 Ox Delivery Rate 09/14 1426 98.7 80 20 125/80 96 09/14 1349 88 170/62 09/14 1348 88 170/62 09/14 1348 88 170/62 09/14 1348 88 170/62 09/14 0800 Nasal 1.5L Cannula 09/14 0722 97.9 73 20 164/66 91 Nasal 1.5L Cannula 09/14 0000 Nasal 1.5L Cannula 09/13 2205 98.1 80 20 130/70 96 09/13 2045 60 128/80 09/13 2044 60 128/80 Intake & Output 09/14 1600 09/14 0800 09/14 0000 Intake Total 200 200 Output Total 400 Balance -200 200 Intake, IV 0 Intake, Oral 200 200 Number 0 0 Bowel Movements Output, Urine 400 Patient 108.012 kg 108.862 kg Weight Physical Exam General Appearance: Alert, Oriented X3, Cooperative Skin: No Rashes, No Breakdown HEENT: Atraumatic Neck: Supple Cardiovascular: Normal S1, Normal S2 Lungs: Clear to Auscultation, Normal Air Movement Abdomen: Soft, No Tenderness Current Medications: Current Medications Sig/Tiffanie Start time Last Medication Dose Route Stop Time Status Admin Acetaminophen 650 MG .STK-MED ONE 09/13 1641 DC PO 09/13 1642 Acetaminophen 650 MG Q6P PRN 08/30 0015 AC 09/14 PO 1532 Amlodipine Besylate 10 MG DAILY 08/30 1000 AC 09/14 PO 1348 Atorvastatin Calcium 20 MG DAILY 08/30 1000 AC 09/14 PO 1349 Cholecalciferol 1,000 IU DAILY 08/30 1000 AC 09/14 PO 1349 Docusate Sodium 100 MG BID 08/30 1000 AC 09/14 PO 1349 Epoetin Earnest 3,000 UNIT MoWeFr PRN 03/10 0915 AC IV Epoetin Earnest 2,000 UNIT MoWeFr PRN 09/09 914 AC IV Erythromycin 1 ANI AT BEDTIME 08/30 2200 AC 09/13 OPH 2045 Ezetimibe 10 MG DAILY 08/30 1000 AC 09/14 PO 1348 Heparin Sodium 5,000 UNIT Q8 08/30 0600 AC 09/14 (Porcine) SC 1350 Hydralazine HCl 100 MG BID 08/30 1000 AC 09/14 PO 1348 Isosorbide 60 MG DAILY 08/30 1000 AC 09/14 Mononitrate PO 1349 Labetalol HCl 300 MG BID 08/30 1000 AC 09/14 PO 1348 Levothyroxine Sodium 0.05 MG DAILY AC 08/30 0700 AC 09/14 PO 0539 Patient Medication 1 ED .STK-MED ONE 09/14 1336 MT Teaching ED 09/14 1337 Patient Own 1 UNIT Q8P PRN 08/30 0115 AC 09/13 Medication TOP 1649 Polyethylene Glycol 17 GM DAILY 08/30 1000 AC 09/14 PO 1349 Senna 187 MG DAILY 08/30 1000 AC 09/14 PO 1349 Last 24 Hrs of Lab/Jamel Results Last 24 Hrs of Labs/Mics: Laboratory Tests 09/14/16 1230: 09/14/16 0750: Anion Gap 15, Estimated GFR 14 L, BUN/Creatinine Ratio 9.0, Phosphorus 3.8, Magnesium 2.0, Albumin 3.8, CBC w Diff NO MAN DIFF REQ, RBC 3.17 L, MCV 89.5, MCH 29.0, RDW 14.0, MPV 7.8, Gran % 78.9 H, Lymphocytes % 7.0 L, Monocytes % 8.8, Eosinophils % 5.1 H, Basophils % 0.2, Absolute Granulocytes 4.5, Absolute Lymphocytes 0.4 L, Absolute Monocytes 0.5, Absolute Eosinophils 0.3, Absolute Basophils 0, PUBS MCHC 32.4 L 09/14/16 0612: Anion Gap 11, Estimated GFR 14 L, BUN/Creatinine Ratio 8.8 Assessment/Plan Assessment: Patient is a 86 y/o M with PMH HTN, HLD, CAD S/P CABG, hypothyroidism, CK D, anemia, GI bleed, history of colon cancer S/P resection, HFpEF, chronic pain on pain stimulator, ROBYN not on CPAP, on nighttime oxygen was admitted for worsening creatinine levels in his recent blood work. He was also being treated for balance issues and hallucinations by his PCP. Imaging done as inpatient Chest x-ray 09/09/16 1. Interval placement of a large bore right jugular central venous catheter which is visualized terminating within the right atrium. Otherwise, no significant interval changes in the appearance of the chest. 2. Persistent elevation of the left hemidiaphragm. Left basilar opacification may reflect atelectasis. Superimposed infection cannot be excluded in the appropriate clinical setting. Patient had PICC line insertion on 09/07/16 Dialysis initiated on 09/07/16 Renal ultrasound 08/30/16 1. Bilateral normal size kidneys with evidence of marked diffuse cortical thinning on the right and moderate diffuse cortical thinning on the left with superimposed multiple cystic abnormalities, as described above. 2. No sonographic evidence of hydronephrosis on either side. Problem list 1. 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 Aspiration pneumonia 3. Hypertension 4 . postherpetic neuralgia 5. Hematuria 6. Coronary artery disease 7. Urinary retention- still having Mims catheter 8. Suicidal ideation Plan Acute kidney disease in chronic kidney disease unsure if it is progressing to end-stage renal disease Patient has been on dialysis since 09/07/16, patient had dialysis today. Spoke with Dr. Dyer regarding long-term care for the need of dialysis. Per Dr. Dyer , patient's urine output is improving, if he continues to improve he might not need dialysis anymore. Creatinine 4.1 on 09/14/16 before dialysis C3 109, C426, P ANCA positive, ruchi negative. Elevated [place] and lambda light chains Patient was on a very high-dose of Lasix as an outpatient which is being held currently Continue to avoid nephrotoxic medications Nephrology consult service on board and appreciate the recommendations Hematuria Probably due to Mims insertion, hematuria has resolved. We'll continue to keep the Mims until the creatinine reaches the baseline Possible aspiration pneumonia patient is on 2 L of nasal cannula Chest x-ray shows elevation of left hemidiaphragm with left basilar volume loss and possible consolidation Patient has no leukocytosis and is afebrile Is continue to be off antibiotics If he spikes fever can panculture and start antibiotics Hypertension Continue labetalol, hydralazine and amlodipine Danny hold Lasix as above Postherpetic neuralgia Patient on Lyrica for pain control Hallucinations Patient had some hallucinations previously which have now resolved Suicidal ideation Patient this morning continued to rest was medical treatment and stated that he wants to just . He currently does not have any plan or intention. Patient evaluated by psychiatric service today. They recommended Effexor at half her typical dose (confirmed by pharmacy) Per psych patient would benefit from talk therapy and they want to refer the patient to outpatient services Diarrhea Patient has been having loose stools since this morning. C. diff ordered, will follow up. Patient encouraged to stay hydrated. Will start him on IV fluids @ 50 cc/hr to prevent dehydration. Diet - Heart healthy Diet DVT prophylaxis-ALP S/heparin Code Status -Full Code Problem List: 1. Acute respiratory failure with hypoxia and hypercapnia Pain Ratin Pain Location: n/a Pain Goal: Pain 4 or less Pain Plan: tylenol prn for pain Tomorrow's Labs & Rationales: none
--- NOTE | 2016-09-14 15:42 | Cons- Psychiatry ---
Psychiatric Consult Date of Consult: 09/14/16 Reason for Consult: "aggitation" History of Present Illness: Identifying Info: 86-year-old male presents to [facility] emergency department on 08/29/2016 per his PCPs recommendation for elevated creatinine and increasing confusion. He was subsequently diagnosed with acute on chronic kidney injury and admitted to medicine. CC: "I just want to lay down and " HPI: Patient over the past year the patient has had 3 extended hospital stays as well as rehabilitation stays. Additionally he has chronic pain to the axilla due to nerve damage from a recent bout of shingles. 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 Per his 's report he has engaged in no pleasurable activities at all. Per nursing report he stated today that he just wanted to , at that point he denied any plan or intention he stated rather he would like to of natural causes as he is tired of living this way. This patient is typically in good spirits that for the past 2 days has been quite depressed. PMH: Please see the H&P for a complete listing HTN, HLD, CAD S/P CABG, hypothyroidism, CK D, anemia, GI bleed, history of colon cancer S/P resection, HFpEF, chronic pain on pain stimulator, ROBYN not on CPAP Past Psych History: None Family Psych History: Denies Substance History Former smoker, denies other Family Substance History: Son has substance abuse issues Social: Born and raised in [place]. He's been for 59 years and has 4 kids and one grandchild. 2 of his children live with him and his . 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 Abuse/Trauma: Unobtained Current Home Psychotropic Medications: None Current Hospital Psychotropic Medications: None Allergies: Coded Allergies: NO KNOWN ALLERGIES (09/28/15) Current Medications: Med Acetaminophen 650 MG PO Q6P PRN 08/30/16 0015 Amlodipine Besylate 10 MG PO DAILY 08/30/16 1000 Atorvastatin Calcium 20 MG PO DAILY 08/30/16 1000 Cholecalciferol 1,000 IU PO DAILY 08/30/16 1000 Docusate Sodium 100 MG PO BID 08/30/16 1000 Ezetimibe 10 MG PO DAILY 08/30/16 1000 Epoetin Earnest 3,000 UNIT IV MoWeFr PRN 09/09/16 0915 Epoetin Earnest 2,000 UNIT IV MoWeFr PRN 09/09/16 0915 Erythromycin 1 ANI OPH AT BEDTIME 08/30/16 2200 Heparin Sodium (Porcine) 5,000 UNIT SC Q8 08/30/16 0600 Hydralazine HCl 100 MG PO BID 08/30/16 1000 Isosorbide Mononitrate 60 MG PO DAILY 08/30/16 1000 Labetalol HCl 300 MG PO BID 08/30/16 1000 Levothyroxine Sodium 0.05 MG PO DAILY AC 08/30/16 0700 Patient Own Medication 1 UNIT TOP Q8P PRN 08/30/16 0115 Polyethylene Glycol 17 GM PO DAILY 08/30/16 1000 Senna 187 MG PO DAILY 08/30/16 1000 Past History Past Medical History Neurological: shingles- left flank EENT: NONE Cardiovascular: CAD (s/p CABG x 5), diastolic CHF, hypertension, hyperlipidemia, atrial tachycardia Respiratory: pneumonia Gastrointestinal: NONE Hepatic: NONE Renal: chronic kidney disease (stage 4) Musculoskeletal: chronic back pain (implanted stimulator device), osteoarthritis Psychiatric: NONE Endocrine: hypothyroidism Blood Disorders: anemia Cancer(s): colon/rectal cancer SHIFT MGR/Reproductive: NONE Past Surgical History Surgical History: CABG, colon resection (sigmoid - Diaz A colon Ca), knee replacement, nerve stimulator Psychosocial History Strengths/Capabilities: Strong family support Physical Limitations (Interventions): Multiple medical comorbidities Psychiatric Treatment History Psych Treatment Psychiatric Treatment No Diagnosis: None Risk Factors: age (under 24/over 65), chronic/serious med cond., male Substance Use/Abuse History Drug Use/Abuse Substances Used/Abused No Substance Abuse Treatment Substance Abuse Treatment Past Substance Abuse [place] No Assessment/Plan Mental Status Orientation: Person, Place, Situation Affect: Depressed, Flat Speech: Soft Neuro-vegetative: Appetite Decreased, Energy Decreased Mental Status Exam: Mental Status Exam Presentation/Appearance: Cooperative with evaluation. Hospital garb. Calm lying in bed Orientation: x3 Sensorium: Awake, somewhat somnolent post dialysis treatment Eye contact: Appropriate Affect: Flat Mood: "I dunno" Depression: Endorses Anxiety: Denies Thought Content: - Continues to endorse passive suicidal ideation. Denies any plans or intention. States and also believes they will not kill themselves. - Nadir DACOSTA, /, PI. - Denies Hopeless/Helpless Thoughts Thought Process: Linear Speech: Soft, minimal Judgment: Fair Insight: Fair Cognition: Memory: Grossly intact Attention/Concentration: Grossly intact MMSE: (Not completed) Brief ROS Gait: Impaired ambulates with assistance and walker Sleep: Adequate Appetite: Decreased Energy: Decreased IADLs/ADLs: With assistance Patient and initially hesitant about the need for psychotropic medication, somewhat ambivalent, but would potentially be receptive to a medication that further harm his kidneys. Lab Results: Laboratory Tests 09/14/16 1230: 09/14/16 0750: Anion Gap 15, Estimated GFR 14 L, BUN/Creatinine Ratio 9.0, Phosphorus 3.8, Magnesium 2.0, Albumin 3.8, CBC w Diff NO MAN DIFF REQ, RBC 3.17 L, MCV 89.5, MCH 29.0, RDW 14.0, MPV 7.8, Gran % 78.9 H, Lymphocytes % 7.0 L, Monocytes % 8.8, Eosinophils % 5.1 H, Basophils % 0.2, Absolute Granulocytes 4.5, Absolute Lymphocytes 0.4 L, Absolute Monocytes 0.5, Absolute Eosinophils 0.3, Absolute Basophils 0, PUBS MCHC 32.4 L 09/14/16 0612: Anion Gap 11, Estimated GFR 14 L, BUN/Creatinine Ratio 8.8 09/13/16 0730: Anion Gap 10, Estimated GFR 16 L, BUN/Creatinine Ratio 8.6 09/12/16 1245: Anion Gap 14, Estimated GFR 13 L, BUN/Creatinine Ratio 12.0, CBC w Diff NO MAN DIFF REQ, RBC 3.03 L, MCV 88.5, MCH 29.1, RDW 13.8, MPV 8.1, Gran % 77.8 H, Lymphocytes % 7.8 L, Monocytes % 9.5 H, Eosinophils % 4.7, Basophils % 0.2, Absolute Granulocytes 3.8, Absolute Lymphocytes 0.4 L, Absolute Monocytes 0.5, Absolute Eosinophils 0.2, Absolute Basophils 0, PUBS MCHC 32.9 L Diffential Diagnosis: (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 It should be noted that due to his age, gender, and chronic medical conditions this patient is at higher risk for suicide. While at present he is passively suicidal and he is not imminent threat to self, if he is not treated appropriately there could be serious consequences. His current state of demoralization is tied to his physical health and if he can recover his mental health should as well. Provisional Treatment Plan: 1. Spoke to pharmacy regarding medication recommendations that would be safe for this patient to take in terms of antidepressants that stimulate norepinephrine to help with energy, mood, and possibly pain. Effexor recommended at half a typical dose. This would be with the hope of discontinuing medication once patient is medically well. If nephrology, the patient, and his agree with this plan we would start Effexor ER 37.5mg daily qam. 2. Patient would benefit from talk therapy. If agreeable we can refer him to our outpatient services or another individual therapy provider. 3. Please initiate Pastoral care referral. Thank you for including psychiatry in this case we'll continue to follow. Ky Contreras APRN, pager [phone]
[2016-09-14 21:20] VITALS: BP 135/70
[2016-09-15 06:48] VITALS: BP 152/64
--- NOTE | 2016-09-15 07:23 | PN- Housestaff ---
MARIN CHNE 09/15/16 0723: Subjective Follow-up For: 1. 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 Aspiration pneumonia 3. Hypertension 4 . postherpetic neuralgia 5. Hematuria 6. Coronary artery disease 7. Urinary retention- still having Mims catheter Subjective: Patient seen and examined this morning. Was sitting comfortably on the chair. Did not look depressed any more. Patient stated that he feels more active. His urine foly had slight hematuria (probably traumatic) patient has 4 bowel movements over noght. He does not have WBC count or fever. C diff is pedning. ROS negative Review of Systems Constitutional: Reports: see HPI. Objective Last 24 Hrs of Vital Signs/I&O Vital Signs Date Time Temp Pulse Resp B/P Pulse O2 O2 Flow FiO2 Ox Delivery Rate 09/15 1214 66 95 09/15 1007 67 152/62 09/15 1006 67 152/62 09/15 1006 67 152/62 09/15 1006 67 152/62 09/15 0800 92 Nasal 1.5L Cannula 09/15 0648 98.1 67 20 152/64 92 Nasal 1.5L Cannula 09/15 0000 Nasal 1.5L Cannula 09/14 2133 66 135/70 09/14 2133 66 135/70 09/14 2120 98.2 66 20 135/70 94 09/14 1600 Nasal 1.5L Cannula 09/14 1426 98.7 80 20 125/80 96 09/14 1349 88 170/62 09/14 1348 88 170/62 09/14 1348 88 170/62 09/14 1348 88 170/62 Intake & Output 09/15 1600 09/15 0800 09/15 0000 Intake Total 500 300 Output Total 50 Balance 450 300 Intake, IV 400 200 Intake, Oral 100 100 Output, Urine 50 Physical Exam General Appearance: Alert, Oriented X3, Cooperative, No Acute Distress Skin: No Rashes, No Breakdown HEENT: Atraumatic Neck: Supple Cardiovascular: Regular Rate, Normal S1, Normal S2 Lungs: Clear to Auscultation, Normal Air Movement Abdomen: Normal Bowel Sounds, Soft, No Tenderness Extremities: Normal Pulses Current Medications: Current Medications Sig/Tiffanie Start time Last Medication Dose Route Stop Time Status Admin Acetaminophen 1,000 MG Q6P PRN 09/14 2214 AC N/A 1 UNIT IV Acetaminophen 650 MG .STK-MED ONE 09/14 1522 DC PO 09/14 1523 Acetaminophen 650 MG Q6P PRN 08/30 0015 AC 09/14 PO 1532 Amlodipine Besylate 10 MG DAILY 08/30 1000 AC 09/15 PO 1006 Atorvastatin Calcium 20 MG DAILY 08/30 1000 AC 09/15 PO 1006 Cholecalciferol 1,000 IU DAILY 08/30 1000 AC 09/15 PO 1006 Diclofenac Sodium 1 ANI 4 TIMES/DAY 09/14 2200 CAN TOP Docusate Sodium 100 MG BID 08/30 1000 AC 09/15 PO 1006 Epoetin Earnest 3,000 UNIT MoWeFr PRN 09/09 0915 AC IV Epoetin Earnest 2,000 UNIT MoWeFr PRN 09/09 0915 AC IV Erythromycin 1 ANI AT BEDTIME 08/30 2200 AC 09/14 OPH 2134 Ezetimibe 10 MG DAILY 08/30 1000 AC 09/15 PO 1006 Heparin Sodium 5,000 UNIT Q8 08/30 0600 AC 09/15 (Porcine) SC 0659 Hydralazine HCl 100 MG BID 08/30 1000 AC 09/15 PO 1007 Isosorbide 60 MG DAILY 08/30 1000 AC 09/15 Mononitrate PO 1006 Labetalol HCl 300 MG BID 08/30 1000 AC 09/15 PO 1006 Levothyroxine Sodium 0.05 MG DAILY AC 08/30 0700 AC 09/15 PO 0659 Patient Medication 1 ED .STK-MED ONE 09/14 1336 MD Teaching ED 09/14 1337 Patient Own 1 UNIT Q8P PRN 08/30 0115 AC 09/13 Medication TOP 1649 Polyethylene Glycol 17 GM DAILY 08/30 1000 AC 09/14 PO 1349 Senna 187 MG DAILY 08/30 1000 AC 09/15 PO 1006 Sodium Chloride 1,000 ML Q20H 09/14 1715 AC 09/14 IV 1724 Last 24 Hrs of Lab/Jamel Results Last 24 Hrs of Labs/Mics: Laboratory Tests 09/15/16 0853: Anion Gap 14, Estimated GFR 18 L, BUN/Creatinine Ratio 5.5 L 09/15/16 0615: CBC w Diff NO MAN DIFF REQ, RBC 3.23 L, MCV 89.3, MCH 29.2, RDW 14.3, MPV 7.7, Gran % 76.0 H, Lymphocytes % 10.7 L, Monocytes % 9.6 H, Eosinophils % 3.5, Basophils % 0.2, Absolute Granulocytes 4.2, Absolute Lymphocytes 0.6 L, Absolute Monocytes 0.5, Absolute Eosinophils 0.2, Absolute Basophils 0, PUBS MCHC 32.7 L Microbiology 09/15 1743 STOOL: Cryptosporidium Antigen - COMP 09/15 1743 STOOL: Giardia Antigen (JAMEL) - COMP 09/15 1743 STOOL: Clostridium difficile Toxin A & B - RES 09/15 1743 STOOL: Stool Culture - RES Assessment/Plan Assessment: Patient is a 86 y/o M with PMH HTN, HLD, CAD S/P CABG, hypothyroidism, CK D, anemia, GI bleed, history of colon cancer S/P resection, HFpEF, chronic pain on pain stimulator, ROBYN not on CPAP, on nighttime oxygen was admitted for worsening creatinine levels in his recent blood work. He was also being treated for balance issues and hallucinations by his PCP. Imaging done as inpatient Chest x-ray 09/09/16 1. Interval placement of a large bore right jugular central venous catheter which is visualized terminating within the right atrium. Otherwise, no significant interval changes in the appearance of the chest. 2. Persistent elevation of the left hemidiaphragm. Left basilar opacification may reflect atelectasis. Superimposed infection cannot be excluded in the appropriate clinical setting. Patient had PICC line insertion on 09/07/16 Dialysis initiated on 09/07/16 Renal ultrasound 08/30/16 1. Bilateral normal size kidneys with evidence of marked diffuse cortical thinning on the right and moderate diffuse cortical thinning on the left with superimposed multiple cystic abnormalities, as described above. 2. No sonographic evidence of hydronephrosis on either side. Problem list 1. 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 Aspiration pneumonia 3. Hypertension 4 . postherpetic neuralgia 5. Hematuria 6. Coronary artery disease 7. Urinary retention- still having Mims catheter 8. Suicidal ideation Plan Acute kidney disease in chronic kidney disease unsure if it is progressing to end-stage renal disease Patient has been on dialysis since 09/07/16, patient will have dialysis tomorrow and will stay over the weekend. Spoke with Dr. Dyer regarding long-term care for the need of dialysis. Per Dr. Gomez, patient's urine output is improving, if he continues to improve he might not need dialysis anymore. Will repeat BEP tomorrow after dialysis C3 109, C426, P ANCA positive, ruchi negative. Elevated Sutton and lambda light chains Patient was on a very high-dose of Lasix as an outpatient which is being held currently as patient is on hemodialysis Continue to avoid nephrotoxic medications Nephrology consult service on board and appreciate the recommendations Hematuria Probably due to Mims insertion. Hematuria appreciated again on 09/15/16, possibly traumatic in nature as patient is repeatedly doing to bathroom for his diarrhea. We'll continue to keep the Mims until the creatinine reaches the baseline Possible aspiration pneumonia patient is on 2 L of nasal cannula Chest x-ray shows elevation of left hemidiaphragm with left basilar volume loss and possible consolidation Patient has no leukocytosis and is afebrile Is continue to be off antibiotics If he spikes fever can panculture and start antibiotics Hypertension Continue labetalol, hydralazine and amlodipine Danny hold Lasix as above Postherpetic neuralgia Patient on Lyrica for pain control Hallucinations Patient had some hallucinations previously which have now resolved Suicidal ideation Patient was frustated yesterday due to his medical problems. Patient evaluated by psychiatric service on 09/14/16. They recommended Effexor at half her typical dose.will hold off on that by now as the drug should be avoided in renal impairement. Per psych patient would benefit from talk therapy and they want to refer the patient to outpatient services Diarrhea Patient has been having loose stools since 09/14/16 C. diff ordered, will follow up. Patient encouraged to stay hydrated. Started on IV fluids @ 50 cc/hr to prevent dehydration. Diet - Heart healthy Diet DVT prophylaxis-ALP S/heparin Code Status -Full Code Problem List: 1. Acute on chronic renal failure Pain Ratin Pain Location: n/a Pain Goal: Pain 4 or less Pain Plan: tylenol prn for pain Tomorrow's Labs & Rationales: cbc beroni [place] MD,KRYSTYNA 09/15/16 1057: Attending MD Review Statement Attending Statement Attending Statement: examined this patient, discuss w/resident/PA/INTAKE MANAGER, agreed w/resident/PA/INTAKE MANAGER, reviewed EMR data (avail), discussed with nursing, discussed with case mgmt, amended to note Attending Assessment/Plan: Patient seen and examined. Sitting down in his chair not in any acute distress. He appears to be much better spirits today. Denies chest or shortness of breath. Denies palpitations. Denies abdominal pain. Evaluation by the psychiatry service yesterday appreciated. He put out just over 500 mL of urine yesterday. Urine bag contains [employer] colored urine this morning. Nursing staff reports some trauma with the Mims catheter today when he was being transitioned to the wheelchair. He had some diarrhea yesterday which appears to be improving this morning. Problems: 1. Acute on chronic kidney disease requiring 2. Hematuria 3. Depressive disorder secondary to medical condition 4. Hypertension 5. Metabolic encephalopathy; likely secondary to uremia. Now resolved. 6. Diarrhea 7. Hypoxic respiratory insufficiency. Plan: -Recommendation from the renal service history evaluate patient's creatinine urine output tomorrow morning prior to decision regarding further hemodialysis. Patient and are aware of this recommendation. -Follow-up with the renal service regarding indications of his positive P ANCA result. -Check urinalysis. -So far stool test is negative for infectious process. Hold laxatives for now. -Psychiatric evaluation appreciated. Would avoid Effexor for now given his renal disorder. He appears to be in better spirits today. Continue supportive care. -Saturation is improving with dialysis. He is currently down to 1-1/2 L of oxygen daily. He is on 2 L at nighttime at baseline.
[2016-09-15 08:38] LABS: ABSOLUTE BASOPHIL COUNT 0 /CUMM (0.0-0.2); ABSOLUTE EOSINOPHIL COUNT 0.2 /CUMM (0.0-0.7); ABSOLUTE GRANULOCYTE CT 4.2 /CUMM (1.4-6.5); ABSOLUTE LYMPH COUNT 0.6 /CUMM (1.2-3.4); ABSOLUTE MONOCYTE COUNT 0.5 /CUMM (0.10-0.60); BASOPHIL % 0.2 % (0.0-2.0); EOSINOPHIL % 3.5 % (0-5); HEMATOCRIT 28.8 % (42-52); MEAN CORPUSCULAR HGB 29.2 PG (27.0-31.0); MEAN CORPUSCULAR HGB CONC 32.7 G/DL (33.0-37.0); MEAN CORPUSCULAR VOLUME 89.3 FL (80.0-94.0); MEAN PLATELET VOLUME 7.7 FL (7.4-10.4); PLATELET COUNT 183 /CUMM (130-400); RBC DISTRIBUTION WIDTH 14.3 % (11.5-14.5); RED BLOOD CELL CT 3.23 /CUMM (4.70-6.10); WHITE BLOOD CELL COUNT 5.5 /CUMM (4.8-10.8)
--- NOTE | 2016-09-15 11:47 | PN- Nephrology ---
Assessment/Plan Assessment: Assessment: 1.GURPREET - as noted in previous notes, it is not clear whether or not this is ESRD. His serum creatinine in June was 2.4. The increase in urine output is encouraging.he has a positive atypical pANCA. I doubt this gentleman has a vasculitic process. 2. Hematuria - has recurred Likely due to cruz placement rather than acute GN. 3. Urinary retention - Still with significant UOP. Has cruz in. 4. 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 He is followed by Dr. Zack Cross 5. Hypoxia -this seems to be better 6. Coronary artery disease S/P CABG, 7. History of hypertension 8. Urinary retention. 9. Anemia. 10.HLD, 11.hypothyroidism, 12. CKD 13. GI bleed, 14 History of colon cancer S/P resection, 15. Diastolic Heart failure, 16 chronic pain on pain stimulator, 17. ROBYN not on CPAP, on nighttime oxygen. Suggestion: 1. Possible Hemodialysis tomorrow. 2. He apparently has been receiving fluid overnight secondary to his nausea. Subjective Subjective: Patient feels better this morning than yesterday. Objective Vital Signs and I&Os Vital Signs Date Time Temp Pulse Resp B/P Pulse O2 O2 Flow FiO2 Ox Delivery Rate 09/15 1007 67 152/62 09/15 1006 67 152/62 09/15 1006 67 152/62 09/15 1006 67 152/62 09/15 0800 92 Nasal 1.5L Cannula 09/15 0648 98.1 67 20 152/64 92 Nasal 1.5L Cannula 09/15 0000 Nasal 1.5L Cannula 09/14 2133 66 135/70 09/14 2133 66 135/70 09/14 2120 98.2 66 20 135/70 94 09/14 1600 Nasal 1.5L Cannula 09/14 1426 98.7 80 20 125/80 96 09/14 1349 88 170/62 09/14 1348 88 170/62 09/14 1348 88 170/62 09/14 1348 88 170/62 Intake & Output 09/15 1600 09/15 0400 09/14 1600 09/14 0400 09/13 1600 09/13 0400 Intake Total 500 300 700 200 890 240 Output Total 50 575 151 250 Balance 450 300 125 200 739 -10 Intake, IV 400 200 0 Intake, Oral 100 100 700 200 890 240 Number 3 0 Bowel Movements Output, Stool 1 Output, Urine 50 575 150 250 Patient 238 lb 232 lb Weight Physical Exam: General Appearance: well developed/nourished, no apparent distress, alert, awake Head: atraumatic, normal appearance Ears, Nose, Throat: hearing decreased Neck: normal inspection, supple, trachea mid line Respiratory: lungs clear, decreased breath sounds Cardiovascular: regular rate/rhythm Abdomen: soft, non-tender, no organomegaly, no abdominal bruits Back: no vertebral tenderness, no CVA tenderness Extremities: normal inspection, no edema Neurologic/Psychiatric: awake, alert, oriented x 3, slightly hard of hearing, moving all extremities Current Medications: Current Medications Sig/Tiffanie Start time Last Medication Dose Route Stop Time Status Admin Acetaminophen 1,000 MG Q6P PRN 09/14 221 AC N/A 1 UNIT IV Acetaminophen 650 MG .STK-MED ONE 09/14 1522 DC PO 09/14 1523 Acetaminophen 650 MG Q6P PRN 08/30 0015 AC 09/14 PO 1532 Amlodipine Besylate 10 MG DAILY 08/30 1000 AC 09/15 PO 1006 Atorvastatin Calcium 20 MG DAILY 08/30 1000 AC 09/15 PO 1006 Cholecalciferol 1,000 IU DAILY 08/30 1000 AC 09/15 PO 1006 Diclofenac Sodium 1 ANI 4 TIMES/DAY 09/14 2200 CAN TOP Docusate Sodium 100 MG BID 08/30 1000 AC 09/15 PO 1006 Epoetin Earnest 3,000 UNIT MoWeFr PRN 09/09 0915 AC IV Epoetin Earnest 2,000 UNIT MoWeFr PRN 09/09 0915 AC IV Erythromycin 1 ANI AT BEDTIME 08/30 2200 AC 09/14 OPH 2134 Ezetimibe 10 MG DAILY 08/30 1000 AC 09/15 PO 1006 Heparin Sodium 5,000 UNIT Q8 08/30 0600 AC 09/15 (Porcine) SC 0659 Hydralazine HCl 100 MG BID 08/30 1000 AC 09/15 PO 1007 Isosorbide 60 MG DAILY 08/30 1000 AC 09/15 Mononitrate PO 1006 Labetalol HCl 300 MG BID 08/30 1000 AC 09/15 PO 1006 Levothyroxine Sodium 0.05 MG DAILY AC 08/30 0700 AC 09/15 PO 0659 Patient Medication 1 ED .STK-MED ONE 09/[address] [facility] ED 09/14 1337 Patient Own 1 UNIT Q8P PRN 08/30 0115 AC 09/13 Medication TOP 1649 Polyethylene Glycol 17 GM DAILY 08/30 1000 AC 09/14 PO 1349 Senna 187 MG DAILY 08/30 1000 AC 09/15 PO 1006 Sodium Chloride 1,000 ML Q20H 09/14 1715 AC 09/14 IV 1724 Results Pertinent Lab Results: Laboratory Tests 09/15 09/15 09/14 0853 0615 1230 Chemistry Sodium (137 - 145 mmol/L) 140 Potassium (3.5 - 5.1 mmol/L) 3.4 L Chloride (98 - 107 mmol/L) 102 Carbon Dioxide (22 - 30 mmol/L) 24 Anion Gap (5 - 16) 14 BUN (9 - 20 mg/dL) 18 11 Creatinine (0.7 - 1.2 mg/dL) 3.3 H Estimated GFR (>60 ml/min) 18 L BUN/Creatinine Ratio (7 - 25 %) 5.5 L Hematology CBC w Diff NO MAN DIFF REQ WBC (4.8 - 10.8 /CUMM) 5.5 RBC (4.70 - 6.10 /CUMM) 3.23 L Hgb (14.0 - 18.0 G/DL) 9.4 L Hct (42 - 52 %) 28.8 L MCV (80.0 - 94.0 FL) 89.3 MCH (27.0 - 31.0 PG) 29.2 RDW (11.5 - 14.5 %) 14.3 Plt Count (130 - 400 /CUMM) 183 MPV (7.4 - 10.4 FL) 7.7 Gran % (42.2 - 75.2 %) 76.0 H Lymphocytes % (20.5 - 51.1 %) 10.7 L Monocytes % (1.7 - 9.3 %) 9.6 H Eosinophils % (0 - 5 %) 3.5 Basophils % (0.0 - 2.0 %) 0.2 Absolute Granulocytes (1.4 - 6.5 /CUMM) 4.2 Absolute Lymphocytes (1.2 - 3.4 /CUMM) 0.6 L Absolute Monocytes (0.10 - 0.60 /CUMM) 0.5 Absolute Eosinophils (0.0 - 0.7 /CUMM) 0.2 Absolute Basophils (0.0 - 0.2 /CUMM) 0 PUBS MCHC (33.0 - 37.0 G/DL) 32.7 L 09/14 09/14 09/14 0912 0750 0612 Chemistry Sodium (137 - 145 mmol/L) 140 140 Potassium (3.5 - 5.1 mmol/L) 3.7 3.7 Chloride (98 - 107 mmol/L) 100 102 Carbon Dioxide (22 - 30 mmol/L) 25 26 Anion Gap (5 - 16) 15 11 BUN (9 - 20 mg/dL) 37 H 37 H Creatinine (0.7 - 1.2 mg/dL) 4.1 H 4.2 H Estimated GFR (>60 ml/min) 14 L 14 L BUN/Creatinine Ratio (7 - 25 %) 9.0 8.8 Phosphorus (2.5 - 4.5 mg/dL) 3.8 Magnesium (1.6 - 2.3 mg/dL) 2.0 Albumin (3.5 - 5.0 g/dL) 3.8 Coagulation PT Cancelled INR Cancelled Hematology CBC w Diff NO MAN DIFF REQ WBC (4.8 - 10.8 /CUMM) 5.7 RBC (4.70 - 6.10 /CUMM) 3.17 L Hgb (14.0 - 18.0 G/DL) 9.2 L Hct (42 - 52 %) 28.4 L MCV (80.0 - 94.0 FL) 89.5 MCH (27.0 - 31.0 PG) 29.0 RDW (11.5 - 14.5 %) 14.0 Plt Count (130 - 400 /CUMM) 185 MPV (7.4 - 10.4 FL) 7.8 Gran % (42.2 - 75.2 %) 78.9 H Lymphocytes % (20.5 - 51.1 %) 7.0 L Monocytes % (1.7 - 9.3 %) 8.8 Eosinophils % (0 - 5 %) 5.1 H Basophils % (0.0 - 2.0 %) 0.2 Absolute Granulocytes (1.4 - 6.5 /CUMM) 4.5 Absolute Lymphocytes (1.2 - 3.4 /CUMM) 0.4 L Absolute Monocytes (0.10 - 0.60 /CUMM) 0.5 Absolute Eosinophils (0.0 - 0.7 /CUMM) 0.3 Absolute Basophils (0.0 - 0.2 /CUMM) 0 PUBS MCHC (33.0 - 37.0 G/DL) 32.4 L 09/13 09/12 0730 1245 Chemistry Sodium (137 - 145 mmol/L) 140 142 Potassium (3.5 - 5.1 mmol/L) 3.8 3.7 Chloride (98 - 107 mmol/L) 102 103 Carbon Dioxide (22 - 30 mmol/L) 28 24 Anion Gap (5 - 16) 10 14 BUN (9 - 20 mg/dL) 31 H 53 H Creatinine (0.7 - 1.2 mg/dL) 3.6 H 4.4 H Estimated GFR (>60 ml/min) 16 L 13 L BUN/Creatinine Ratio (7 - 25 %) 8.6 12.0 Hematology CBC w Diff NO MAN DIFF REQ WBC (4.8 - 10.8 /CUMM) 4.9 RBC (4.70 - 6.10 /CUMM) 3.03 L Hgb (14.0 - 18.0 G/DL) 8.8 L Hct (42 - 52 %) 26.8 L MCV (80.0 - 94.0 FL) 88.5 MCH (27.0 - 31.0 PG) 29.1 RDW (11.5 - 14.5 %) 13.8 Plt Count (130 - 400 /CUMM) 173 MPV (7.4 - 10.4 FL) 8.1 Gran % (42.2 - 75.2 %) 77.8 H Lymphocytes % (20.5 - 51.1 %) 7.8 L Monocytes % (1.7 - 9.3 %) 9.5 H Eosinophils % (0 - 5 %) 4.7 Basophils % (0.0 - 2.0 %) 0.2 Absolute Granulocytes (1.4 - 6.5 /CUMM) 3.8 Absolute Lymphocytes (1.2 - 3.4 /CUMM) 0.4 L Absolute Monocytes (0.10 - 0.60 /CUMM) 0.5 Absolute Eosinophils (0.0 - 0.7 /CUMM) 0.2 Absolute Basophils (0.0 - 0.2 /CUMM) 0 PUBS MCHC (33.0 - 37.0 G/DL) 32.9 L
[2016-09-15 14:18] VITALS: BP 130/70
[2016-09-15 22:45] VITALS: BP 140/70
[2016-09-16 07:11] VITALS: BP 152/64
--- NOTE | 2016-09-16 07:33 | PN- Housestaff ---
Subjective Follow-up For: Dialysis dependent CKD Subjective: Patient seen and examined. He looks awake and alert. Doing well. No new complains Review of Systems Constitutional: Reports: see HPI. Objective Last 24 Hrs of Vital Signs/I&O Vital Signs Date Time Temp Pulse Resp B/P Pulse O2 O2 Flow FiO2 Ox Delivery Rate 09/16 1450 98.2 69 20 152/82 94 09/16 0859 64 152/64 09/16 0859 64.0 64 152/64 09/16 0859 64 152/64 09/16 0859 64 152/64 09/16 0711 98.1 64 20 152/64 93 Nasal Cannula 09/16 0000 93 Nasal 0.5L Cannula 09/15 2245 97.6 76 19 140/70 93 Nasal Cannula 09/15 2058 76 160/70 09/15 2057 76 160/70 Intake & Output 09/16 1600 09/16 0800 09/16 0000 Intake Total 400 200 210 Output Total 110 100 220 Balance 290 100 -10 Intake, IV 0 Intake, Oral 400 200 210 Number 0 0 Bowel Movements Output, Urine 110 100 220 Patient 103.873 kg Weight Physical Exam General Appearance: Alert, Oriented X3, Cooperative, No Acute Distress Skin: No Rashes, No Breakdown HEENT: Atraumatic Neck: Supple Cardiovascular: Regular Rate, Normal S1, Normal S2 Lungs: Clear to Auscultation, Normal Air Movement Abdomen: Soft, No Tenderness Neurological: Normal Speech Extremities: No Edema, Normal Pulses Current Medications: Current Medications Sig/Tiffanie Start time Last Medication Dose Route Stop Time Status Admin Acetaminophen 650 MG .STK-MED ONE 09/16 0042 DC PO 09/16 0043 Acetaminophen 1,000 MG Q6P PRN 09/14 2215 AC N/A 1 UNIT IV Acetaminophen 650 MG Q6P PRN 08/30 0015 AC 09/15 PO 2110 Amlodipine Besylate 10 MG DAILY 08/30 1000 AC 09/16 PO 0859 Atorvastatin Calcium 20 MG DAILY 08/30 1000 AC 09/16 PO 0859 Cholecalciferol 1,000 IU DAILY 08/30 1000 AC 09/16 PO 0859 Diclofenac Sodium 1 ANI 4 TIMES/DAY 09/16 1800 CANr TOP Epoetin Earnest 3,000 UNIT MoWeFr PRN 09/09 914 AC IV Epoetin Earnest 2,000 UNIT MoWeFr PRN 03/10 0915 AC IV Erythromycin 1 ANI AT BEDTIME 08/30 2200 AC 09/15 OPH 2058 Ezetimibe 10 MG DAILY 08/30 1000 AC 09/16 PO 0859 Heparin Sodium 5,000 UNIT Q8 08/30 0600 AC 09/16 (Porcine) SC 1448 Hydralazine HCl 100 MG BID 08/30 1000 AC 09/16 PO 0859 Isosorbide 60 MG DAILY 08/30 1000 AC 09/16 Mononitrate PO 0859 Labetalol HCl 300 MG BID 08/30 1000 AC 09/16 PO 0859 Levothyroxine Sodium 0.05 MG DAILY AC 08/30 0700 AC 09/16 PO 0619 Methyl Salicylate 1 ANI .[Q3PRN] 09/16 1700 UNVr TOP Patient Own 1 UNIT Q8P PRN 08/30 0115 AC 09/13 Medication TOP 1649 Last 24 Hrs of Lab/Jamel Results Last 24 Hrs of Labs/Mics: Laboratory Tests 09/16/16 1029: Anion Gap 14, Estimated GFR 15 L, BUN/Creatinine Ratio 8.2, CBC w Diff NO MAN DIFF REQ, RBC 3.26 L, MCV 88.4, MCH 29.2, RDW 13.9, MPV 7.3 L, Gran % 78.3 H, Lymphocytes % 7.9 L, Monocytes % 9.5 H, Eosinophils % 3.9, Basophils % 0.4, Absolute Granulocytes 4.2, Absolute Lymphocytes 0.4 L, Absolute Monocytes 0.5, Absolute Eosinophils 0.2, Absolute Basophils 0, PUBS MCHC 33.0 09/15/16 1810: Urine Color BLDY H, Urine Clarity TURBD H, Urine pH 5.5, Ur Specific [place] > = 1.030, Urine Protein >=300 H, Urine Ketones 15 H, Urine Nitrite POS H, Urine Bilirubin POS@ICTO H, Urine Urobilinogen 1.0, Ur Leukocyte Esterase TRACE H, Ur Microscopic SEDIMENT EXAMINED, Urine RBC PACKD H, Urine WBC 1-3 H, Ur Epithelial Cells FEW, Hyaline Casts RARE H, Urine Hemoglobin LARGE H, Urine Glucose NEG Assessment/Plan Assessment: Patient is a 86 y/o M with PMH HTN, HLD, CAD S/P CABG, hypothyroidism, CK D, anemia, GI bleed, history of colon cancer S/P resection, HFpEF, chronic pain on pain stimulator, ROBYN not on CPAP, on nighttime oxygen was admitted for worsening creatinine levels in his recent blood work. He was also being treated for balance issues and hallucinations by his PCP. Imaging done as inpatient Chest x-ray 09/09/16 1. Interval placement of a large bore right jugular central venous catheter which is visualized terminating within the right atrium. Otherwise, no significant interval changes in the appearance of the chest. 2. Persistent elevation of the left hemidiaphragm. Left basilar opacification may reflect atelectasis. Superimposed infection cannot be excluded in the appropriate clinical setting. Patient had PICC line insertion on 09/07/16 Dialysis initiated on 09/07/16 Renal ultrasound 08/30/16 1. Bilateral normal size kidneys with evidence of marked diffuse cortical thinning on the right and moderate diffuse cortical thinning on the left with superimposed multiple cystic abnormalities, as described above. 2. No sonographic evidence of hydronephrosis on either side. Problem list 1. 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 Aspiration pneumonia 3. Hypertension 4 . postherpetic neuralgia 5. Hematuria 6. Coronary artery disease 7. Urinary retention- still having Mims catheter 8. Suicidal ideation Plan Acute kidney disease in chronic kidney disease unsure if it is progressing to end-stage renal disease Patient has been on dialysis since 09/07/16, patient will have dialysis tomorrow and will likely stay over the weekend. Spoke with Dr. Dyer regarding long-term care for the need of dialysis. Per Dr. yDer, patient's urine output is improving, if he continues to improve he might not need dialysis anymore. Will repeat BEP tomorrow before dialysis C3 109, C426, P ANCA positive, ruchi negative. Elevated [place] and lambda light chains Patient was on a very high-dose of Lasix as an outpatient which is being held currently as patient is on hemodialysis Continue to avoid nephrotoxic medications Nephrology consult service on board and appreciate the recommendations Hematuria Probably due to Mims insertion. Hematuria appreciated again on 09/15/16, possibly traumatic in nature as patient is repeatedly doing to bathroom for his diarrhea. We'll continue to keep the Mims until the creatinine reaches the baseline Possible aspiration pneumonia patient is on 2 L of nasal cannula Chest x-ray shows elevation of left hemidiaphragm with left basilar volume loss and possible consolidation Patient has no leukocytosis and is afebrile Is continue to be off antibiotics If he spikes fever can panculture and start antibiotics Hypertension Continue labetalol, hydralazine and amlodipine Danny hold Lasix as above Postherpetic neuralgia Patient on Lyrica for pain control Hallucinations Patient had some hallucinations previously which have now resolved Suicidal ideation Patient was frustated yesterday due to his medical problems. Patient evaluated by psychiatric service on 09/14/16. They recommended Effexor at half her typical dose.will hold off on that by now as the drug should be avoided in renal impairement. Per psych patient would benefit from talk therapy and they want to refer the patient to outpatient services Diarrhea Patient has been having loose stools since 09/14/16 C. diff negative. Diarrhea has resolved. Diet - Heart healthy Diet DVT prophylaxis-ALP S/heparin Code Status -Full Code Problem List: 1. Renal failure Pain Ratin Pain Location: n/a Pain Goal: Pain 4 or less Pain Plan: tylenol prn Tomorrow's Labs & Rationales: cbc bep to be drawn before dialysis
--- NOTE | 2016-09-16 10:31 | PN- Nephrology ---
Assessment/Plan Assessment: Assessment: 1.GURPREET - as noted in previous notes, it is not clear whether or not this is ESRD. His serum creatinine in June was 2.4. The increase in urine output is encouraging.he has a positive atypical pANCA. I doubt this gentleman has a vasculitic process. Please note, his anti-proteinase 3 and his antimyeloperoxidase were both negative. Likewise, his anti-GBM was negative. He has small kidneys on ultrasound, even if this were positive were involved in a vasculitic process, the likelihood of recovery with biopsy and immunosuppression is slim to none. In addition, the thought of high-dose immunosuppression and an 86-year-old is not thrilling. 2. Hematuria - has recurred Likely due to cruz placement rather than acute GN. 3. Urinary retention - Still with significant UOP. Has cruz in. 4. 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 He is followed by Dr. Zack Cross 5. Hypoxia -this seems to be better 6. Coronary artery disease S/P CABG, 7. History of hypertension 8. Urinary retention. 9. Anemia. 10.HLD, 11.hypothyroidism, 12. CKD 13. GI bleed, 14 History of colon cancer S/P resection, 15. Diastolic Heart failure, 16 chronic pain on pain stimulator, 17. ROBYN not on CPAP, on nighttime oxygen. Suggestion: 1. Possible Hemodialysis tomorrow. 2. Have asked that his blood be sent by peripheral stick on a stat basis. If it is better than it was on Monday prior to dialysis, dialysis may well be held. 3. Please send blood work by peripheral phlebotomy in the a.m. so that a dialysis decision may be made in a timely fashion. Subjective Subjective: Patient says he feels well. He tells me that they just changed his Cruz bag. Objective Vital Signs and I&Os Vital Signs Date Time Temp Pulse Resp B/P Pulse O2 O2 Flow FiO2 Ox Delivery Rate 09/16 0859 64 15264 09/16 0859 64.0 64 152/64 09/16 0859 64 152/64 09/16 0859 64 15264 09/16 0711 98.1 64 20 152/64 93 Nasal Cannula 09/16 0000 93 Nasal 0.5L Cannula 09/15 2245 97.6 76 19 140/70 93 Nasal Cannula 03/16 2058 76 160/70 03/16 2057 76 160/70 09/15 1418 98.0 80 19 130/70 93 09/15 1214 66 95 Intake & Output 09/16 1600 09/16 0400 09/15 1600 09/15 0400 09/14 1600 09/14 0400 Intake Total 200 210 980 300 700 200 Output Total 100 220 80 575 Balance 100 -10 900 300 125 200 Intake, IV 400 200 0 Intake, Oral 200 210 580 100 700 200 Number 0 0 3 0 Bowel Movements Output, Urine 100 220 80 575 Patient 229 lb 238 lb Weight Physical Exam: General Appearance: well developed/nourished, no apparent distress, alert, awake Head: atraumatic, normal appearance Ears, Nose, Throat: hearing decreased Neck: normal inspection, supple, trachea mid line Respiratory: lungs clear, decreased breath sounds Cardiovascular: regular rate/rhythm Abdomen: soft, non-tender, no organomegaly, no abdominal bruits Back: no vertebral tenderness, no CVA tenderness Extremities: normal inspection, no edema Neurologic/Psychiatric: awake, alert, oriented x 3, slightly hard of hearing, moving all extremities Current Medications: Current Medications Sig/Tiffanie Start time Last Medication Dose Route Stop Time Status Admin Acetaminophen 650 MG .STK-MED ONE 09/16 0042 DC PO 09/16 0043 Acetaminophen 1,000 MG Q6P PRN 09/14 2215 N/A 1 UNIT IV Acetaminophen 650 MG Q6P PRN 08/30 0015 AC 09/15 PO 2110 Amlodipine Besylate 10 MG DAILY 08/30 1000 AC 09/16 PO 0859 Atorvastatin Calcium 20 MG DAILY 08/30 1000 AC 09/16 PO 0859 Cholecalciferol 1,000 IU DAILY 08/30 1000 AC 09/16 PO 0859 Docusate Sodium 100 MG BID 08/30 1000 DC 09/15 PO 1006 Epoetin Earnest 3,000 UNIT MoWeFr PRN 09/09 0815 AC IV Epoetin Earnest 2,000 UNIT MoWeFr PRN 09/09 914 AC IV Erythromycin 1 ANI AT BEDTIME 08/30 2200 AC 09/15 OPH 2057 Ezetimibe 10 MG DAILY 08/30 1000 AC 09/16 PO 0859 Heparin Sodium 5,000 UNIT Q8 08/30 0600 AC 09/16 (Porcine) SC 0619 Hydralazine HCl 100 MG BID 08/30 1000 AC 09/16 PO 0859 Isosorbide 60 MG DAILY 08/30 1000 AC 09/16 Mononitrate PO 0859 Labetalol HCl 300 MG BID 08/30 1000 AC 09/16 PO 0859 Levothyroxine Sodium 0.05 MG DAILY AC 08/30 0700 AC 09/16 PO 0619 Patient Medication 1 ED .STK-MED ONE 09/15 1426 IN Teaching ED 09/15 1427 Patient Own 1 UNIT Q8P PRN 08/30 0115 09/13 Medication TOP 1649 Polyethylene Glycol 17 GM DAILY 08/30 1000 DC 09/14 PO 1349 Senna 187 MG DAILY 08/30 1000 DC 09/15 PO 1006 Sodium Chloride 1,000 ML Q20H 09/14 1715 DC 09/14 IV 1724 Results Pertinent Lab Results: Laboratory Tests 09/16 09/15 09/15 1029 1810 0853 Chemistry Sodium (137 - 145 mmol/L) Pending 140 Potassium (3.5 - 5.1 mmol/L) Pending 3.4 L Chloride (98 - 107 mmol/L) Pending 102 Carbon Dioxide (22 - 30 mmol/L) Pending 24 Anion Gap (5 - 16) Pending 14 BUN (9 - 20 mg/dL) Pending 18 Creatinine (0.7 - 1.2 mg/dL) Pending 3.3 H Estimated GFR (>60 ml/min) 18 L BUN/Creatinine Ratio (7 - 25 %) Pending 5.5 L Hematology CBC w Diff Pending WBC Pending RBC Pending Hgb Pending Hct Pending MCV Pending MCH Pending RDW Pending Plt Count Pending MPV Pending PUBS MCHC Pending Urines Urine Color (YEL,AMB,STR) BLDY H Urine Clarity (CLEAR) TURBD H Urine pH (5.0 - 8.0) 5.5 Ur Specific [place] (1.001 - 1.035) >= 1.030 Urine Protein (NEG,<30 MG/DL) >=300 H Urine Ketones (NEG) 15 H Urine Nitrite (NEG) POS H Urine Bilirubin (NEG) POS@ICTO H Urine Urobilinogen (0.1 - 1.0 EU/dl) 1.0 Ur Leukocyte Esterase (NEG) TRACE H Ur Microscopic SEDIMENT EXAMINED Urine RBC (0 - 5 /HPF) PACKD H Urine WBC (0 - 2 /HPF) 1-3 H Ur Epithelial Cells (NONE,FEW) FEW Hyaline Casts (0/LPF) RARE H Urine Hemoglobin (NEG) LARGE H Urine Glucose (N MG/DL) NEG 09/15 09/14 09/14 0615 1230 0912 Chemistry BUN (9 - 20 mg/dL) 11 Coagulation PT Cancelled INR Cancelled Hematology CBC w Diff NO MAN DIFF REQ WBC (4.8 - 10.8 /CUMM) 5.5 RBC (4.70 - 6.10 /CUMM) 3.23 L Hgb (14.0 - 18.0 G/DL) 9.4 L Hct (42 - 52 %) 28.8 L MCV (80.0 - 94.0 FL) 89.3 MCH (27.0 - 31.0 PG) 29.2 RDW (11.5 - 14.5 %) 14.3 Plt Count (130 - 400 /CUMM) 183 MPV (7.4 - 10.4 FL) 7.7 Gran % (42.2 - 75.2 %) 76.0 H Lymphocytes % (20.5 - 51.1 %) 10.7 L Monocytes % (1.7 - 9.3 %) 9.6 H Eosinophils % (0 - 5 %) 3.5 Basophils % (0.0 - 2.0 %) 0.2 Absolute Granulocytes (1.4 - 6.5 /CUMM) 4.2 Absolute Lymphocytes (1.2 - 3.4 /CUMM) 0.6 L Absolute Monocytes (0.10 - 0.60 /CUMM) 0.5 Absolute Eosinophils (0.0 - 0.7 /CUMM) 0.2 Absolute Basophils (0.0 - 0.2 /CUMM) 0 PUBS MCHC (33.0 - 37.0 G/DL) 32.7 L 09/14 09/14 0750 0612 Chemistry Sodium (137 - 145 mmol/L) 140 140 Potassium (3.5 - 5.1 mmol/L) 3.7 3.7 Chloride (98 - 107 mmol/L) 100 102 Carbon Dioxide (22 - 30 mmol/L) 25 26 Anion Gap (5 - 16) 15 11 BUN (9 - 20 mg/dL) 37 H 37 H Creatinine (0.7 - 1.2 mg/dL) 4.1 H 4.2 H Estimated GFR (>60 ml/min) 14 L 14 L BUN/Creatinine Ratio (7 - 25 %) 9.0 8.8 Phosphorus (2.5 - 4.5 mg/dL) 3.8 Magnesium (1.6 - 2.3 mg/dL) 2.0 Albumin (3.5 - 5.0 g/dL) 3.8 Hematology CBC w Diff NO MAN DIFF REQ WBC (4.8 - 10.8 /CUMM) 5.7 RBC (4.70 - 6.10 /CUMM) 3.17 L Hgb (14.0 - 18.0 G/DL) 9.2 L Hct (42 - 52 %) 28.4 L MCV (80.0 - 94.0 FL) 89.5 MCH (27.0 - 31.0 PG) 29.0 RDW (11.5 - 14.5 %) 14.0 Plt Count (130 - 400 /CUMM) 185 MPV (7.4 - 10.4 FL) 7.8 Gran % (42.2 - 75.2 %) 78.9 H Lymphocytes % (20.5 - 51.1 %) 7.0 L Monocytes % (1.7 - 9.3 %) 8.8 Eosinophils % (0 - 5 %) 5.1 H Basophils % (0.0 - 2.0 %) 0.2 Absolute Granulocytes (1.4 - 6.5 /CUMM) 4.5 Absolute Lymphocytes (1.2 - 3.4 /CUMM) 0.4 L Absolute Monocytes (0.10 - 0.60 /CUMM) 0.5 Absolute Eosinophils (0.0 - 0.7 /CUMM) 0.3 Absolute Basophils (0.0 - 0.2 /CUMM) 0 PUBS MCHC (33.0 - 37.0 G/DL) 32.4 L
[2016-09-16 10:44] LABS: ABSOLUTE BASOPHIL COUNT 0 /CUMM (0.0-0.2); ABSOLUTE EOSINOPHIL COUNT 0.2 /CUMM (0.0-0.7); ABSOLUTE GRANULOCYTE CT 4.2 /CUMM (1.4-6.5); ABSOLUTE LYMPH COUNT 0.4 /CUMM (1.2-3.4); ABSOLUTE MONOCYTE COUNT 0.5 /CUMM (0.10-0.60); BASOPHIL % 0.4 % (0.0-2.0); EOSINOPHIL % 3.9 % (0-5); GRANULOCYTE % 78.3 % (42.2-75.2); HEMATOCRIT 28.8 % (42-52); MEAN CORPUSCULAR HGB 29.2 PG (27.0-31.0); MEAN CORPUSCULAR VOLUME 88.4 FL (80.0-94.0); MEAN PLATELET VOLUME 7.3 FL (7.4-10.4); PLATELET COUNT 232 /CUMM (130-400); RBC DISTRIBUTION WIDTH 13.9 % (11.5-14.5); RED BLOOD CELL CT 3.26 /CUMM (4.70-6.10); WHITE BLOOD CELL COUNT 5.4 /CUMM (4.8-10.8)
--- NOTE | 2016-09-16 12:38 | Event Note ---
Event Note Event Note: Discussed with the patient and with his . I spoke with his by phone. The patient's serum creatinine today is 3.8. He looks fine. I'm concerned that his urine output is not great. He does, however, appear to be somewhat on the dry side to me. I do not see any urgent dialytic need today. As outlined in previous notes, it is hoped that the patient will recover enough function to stop dialysis. I do not think we are at that point yet. Although he is technically possible as well as possible from a reimbursement perspective dialyze this man as an outpatient, I am concerned that he is on the cusp of recovery. I would be concerned that injudicious use of renal replacement therapy will delay recovery and potentially result in the person becoming truly end-stage. On the other hand, if it becomes apparent that he is not showing signs of recovery, it may be reasonable for him to be dialyzed at [facility] with his outpatient keyseater operator Dr. Zack Cross. It would seem still too early to tell. The patient's home phone number is [phone].
[2016-09-16 14:50] VITALS: BP 152/82
--- NOTE | 2016-09-16 17:06 | PN- Att Addend ---
Attending Addendum Attending Brief Note Patient seen and examined. Plan of care discussed with the medical team and the patient. Available lab work and radiology test reports were reviewed. Patient denies any recent fever chills or chest pains. He appears awake alert and oriented this morning. He sitting in chair and does not exhibit any confusion no distress. He is currently off oxygen. Vital Signs Date Time Temp Pulse Resp B/P Pulse O2 O2 Flow FiO2 Ox Delivery Rate 09/16 1450 98.2 69 20 152/82 94 09/16 0859 64 152/64 09/16 0859 64.0 64 152/64 09/16 0859 64 152/64 09/16 0859 64 152/64 09/16 0711 98.1 64 20 152/64 93 Nasal Cannula 09/16 0000 93 Nasal 0.5L Cannula 09/15 2245 97.6 76 19 140/70 93 Nasal Cannula 09/15 2058 76 160/70 09/15 2057 76 160/70 Intake & Output 09/16 1600 09/16 0800 09/16 0000 Intake Total 400 200 210 Output Total 110 100 220 Balance 290 100 -10 Intake, IV 0 Intake, Oral 400 200 210 Number 0 0 Bowel Movements Output, Urine 110 100 220 Patient 229 lb Weight Exam: General: Patient is lethargic and awake and l oriented without any distress; no confusion noted CVS: S1 plus S2 without any murmur or gallops Chest: Few scattered crepitation without any wheeze. There is no respiratory distress. Abdomen: Soft nontender, bowel sound present, no guarding or rebound USED CAR RENOVATOR: Awake alert oriented without any focal neuro deficit and follows command appropriately Extremities: No edema; no clubbing or cyanosis noted Laboratory Tests 09/16 09/15 1029 1810 Chemistry Sodium (137 - 145 mmol/L) 135 L Potassium (3.5 - 5.1 mmol/L) 3.9 Chloride (98 - 107 mmol/L) 99 Carbon Dioxide (22 - 30 mmol/L) 22 Anion Gap (5 - 16) 14 BUN (9 - 20 mg/dL) 31 H Creatinine (0.7 - 1.2 mg/dL) 3.8 H Estimated GFR (>60 ml/min) 15 L BUN/Creatinine Ratio (7 - 25 %) 8.2 Hematology CBC w Diff NO MAN DIFF REQ WBC (4.8 - 10.8 /CUMM) 5.4 RBC (4.70 - 6.10 /CUMM) 3.26 L Hgb (14.0 - 18.0 G/DL) 9.5 L Hct (42 - 52 %) 28.8 L MCV (80.0 - 94.0 FL) 88.4 MCH (27.0 - 31.0 PG) 29.2 RDW (11.5 - 14.5 %) 13.9 Plt Count (130 - 400 /CUMM) 232 MPV (7.4 - 10.4 FL) 7.3 L Gran % (42.2 - 75.2 %) 78.3 H Lymphocytes % (20.5 - 51.1 %) 7.9 L Monocytes % (1.7 - 9.3 %) 9.5 H Eosinophils % (0 - 5 %) 3.9 Basophils % (0.0 - 2.0 %) 0.4 Absolute Granulocytes (1.4 - 6.5 /CUMM) 4.2 Absolute Lymphocytes (1.2 - 3.4 /CUMM) 0.4 L Absolute Monocytes (0.10 - 0.60 /CUMM) 0.5 Absolute Eosinophils (0.0 - 0.7 /CUMM) 0.2 Absolute Basophils (0.0 - 0.2 /CUMM) 0 PUBS MCHC (33.0 - 37.0 G/DL) 33.0 Urines Urine Color (YEL,AMB,STR) BLDY H Urine Clarity (CLEAR) TURBD H Urine pH (5.0 - 8.0) 5.5 Ur Specific [place] (1.001 - 1.035) >= 1.030 Urine Protein (NEG,<30 MG/DL) >=300 H Urine Ketones (NEG) 15 H Urine Nitrite (NEG) POS H Urine Bilirubin (NEG) POS@ICTO H Urine Urobilinogen (0.1 - 1.0 EU/dl) 1.0 Ur Leukocyte Esterase (NEG) TRACE H Ur Microscopic SEDIMENT EXAMINED Urine RBC (0 - 5 /HPF) PACKD H Urine WBC (0 - 2 /HPF) 1-3 H Ur Epithelial Cells (NONE,FEW) FEW Hyaline Casts (0/LPF) RARE H Urine Hemoglobin (NEG) LARGE H Urine Glucose (N MG/DL) NEG Assessment * Acute and chronic renal failure- patient currently on hemodialysis through AMANDA catheter with improvement in creatinine and potassium; nephrology decide about further plan for continuing or discontinuing hemodialysis. Note the patient urine output has been low. * hx CHF given the patient's tachypnea and increasing hypoxia; recent x-rays do not show any acute CHF, however patient oxygenation and hypoxia did improve after hemodialysis * hyperkalemia- potassium has improved * Confusion and delirium- improved Plan * Continue to monitor respiratory status; * Await further decision about hemodialysis * Follow-up lab work which will be done during dialysis * Continue Incentive spirometry
[2016-09-16 22:53] VITALS: BP 170/70
[2016-09-17 06:46] VITALS: BP 178/68
[2016-09-17 08:21] LABS: ABSOLUTE BASOPHIL COUNT 0 /CUMM (0.0-0.2); ABSOLUTE EOSINOPHIL COUNT 0.2 /CUMM (0.0-0.7); ABSOLUTE GRANULOCYTE CT 3.3 /CUMM (1.4-6.5); ABSOLUTE LYMPH COUNT 0.5 /CUMM (1.2-3.4); ABSOLUTE MONOCYTE COUNT 0.5 /CUMM (0.10-0.60); BASOPHIL % 0.4 % (0.0-2.0); EOSINOPHIL % 4.9 % (0-5); GRANULOCYTE % 73.3 % (42.2-75.2); HEMATOCRIT 27.6 % (42-52); MEAN CORPUSCULAR HGB 29.3 PG (27.0-31.0); MEAN CORPUSCULAR HGB CONC 33.2 G/DL (33.0-37.0); MEAN PLATELET VOLUME 7.1 FL (7.4-10.4); PLATELET COUNT 215 /CUMM (130-400); RBC DISTRIBUTION WIDTH 14.5 % (11.5-14.5); RED BLOOD CELL CT 3.14 /CUMM (4.70-6.10); WHITE BLOOD CELL COUNT 4.5 /CUMM (4.8-10.8)
--- NOTE | 2016-09-17 09:48 | PN- Housestaff ---
Subjective Follow-up For: GURPREET Urinary retension CKD B/L LE pain Complaints: Pain in B/L LE Subjective: Patient seen and examined, he is setting in the chair in moderate distress. He is oriented and cooperative. Denies chest pain, SOB. No abdominal or flank pain. Vitals stable Mims in place with clear yellow output. Review of Systems Constitutional: Reports: no symptoms. EENTM: Reports: no symptoms. Cardiovascular: Reports: no symptoms. Respiratory: Reports: no symptoms. Gastrointestinal: Reports: no symptoms. Musculoskeletal: Reports: see HPI. Skin: Reports: no symptoms. Objective Last 24 Hrs of Vital Signs/I&O Vital Signs Date Time Temp Pulse Resp B/P Pulse O2 O2 Flow FiO2 Ox Delivery Rate 09/17 1011 72 140/80 09/17 1011 72 140/80 09/17 1011 72 140/80 09/17 1011 72 140/80 09/17 0646 97.5 67 22 178/68 94 Room Air 09/16 2253 98.1 78 22 170/70 94 Room Air 09/16 2137 78 170/70 09/16 2137 74 170/70 09/16 1450 98.2 69 20 152/82 94 Intake & Output 09/17 1600 09/17 0800 09/17 0000 Intake Total 240 760 Output Total 225 Balance 240 535 Intake, IV 10 Intake, Oral 240 750 Output, Urine 225 Patient 231 lb Weight Physical Exam General Appearance: Alert, Oriented X3, Cooperative, Moderate Distress Skin: No Rashes, No Breakdown, No Significant Lesion HEENT: Atraumatic, PERRLA, EOMI, Mucous Membr. moist/pink Cardiovascular: Normal S1, Normal S2, systolic murmur Lungs: Clear to Auscultation, Normal Air Movement Abdomen: Normal Bowel Sounds, Soft, No Tenderness Neurological: Sensation Intact Extremities: No Edema Current Medications: Current Medications Sig/Tiffanie Start time Last Medication Dose Route Stop Time Status Admin Acetaminophen 650 MG .STK-MED ONE 09/16 2129 DC PO 09/16 2130 Acetaminophen 1,000 MG Q6P PRN 09/14 221 AC N/A 1 UNIT IV Acetaminophen 650 MG Q6P PRN 08/30 0015 AC 09/17 PO 0614 Amlodipine Besylate 10 MG DAILY 08/30 1000 AC 09/17 PO 1011 Atorvastatin Calcium 20 MG DAILY 08/30 1000 AC 03/18 PO 1011 Cholecalciferol 1,000 IU DAILY 08/30 1000 AC 09/17 PO 1010 Diclofenac Sodium 1 ANI 4 TIMES/DAY 09/16 1800 CAN TOP Epoetin Earnest 3,000 UNIT MoWeFr PRN 09/09 09 AC IV Epoetin Earnest 2,000 UNIT MoWeFr PRN 09/09 09 AC IV Erythromycin 1 ANI AT BEDTIME 08/30 2200 AC 09/16 OPH 2137 Ezetimibe 10 MG DAILY 08/30 1000 AC 09/17 PO 1010 Heparin Sodium 5,000 UNIT Q8 08/30 0600 AC 09/17 (Porcine) SC 0614 Hydralazine HCl 100 MG BID 08/30 1000 AC 09/17 PO 1011 Isosorbide 60 MG DAILY 08/30 1000 AC 09/17 Mononitrate PO 1011 Labetalol HCl 300 MG BID 08/30 1000 AC 09/17 PO 1011 Levothyroxine Sodium 0.05 MG DAILY AC 08/30 0700 AC 09/17 PO 0614 Methyl Salicylate 1 ANI Q3P PRN 09/16 1700 AC 09/16 TOP 2134 Patient Own 1 UNIT Q8P PRN 08/30 0115 AC 09/13 Medication TOP 1649 Last 24 Hrs of Lab/Jamel Results Last 24 Hrs of Labs/Mics: Laboratory Tests 09/17/16 0700: Anion Gap 11, Estimated GFR 13 L, BUN/Creatinine Ratio 8.2, CBC w Diff NO MAN DIFF REQ, RBC 3.14 L, MCV 88.0, MCH 29.3, RDW 14.5, MPV 7.1 L, Gran % 73.3, Lymphocytes % 11.1 L, Monocytes % 10.3 H, Eosinophils % 4.9, Basophils % 0.4, Absolute Granulocytes 3.3, Absolute Lymphocytes 0.5 L, Absolute Monocytes 0.5, Absolute Eosinophils 0.2, Absolute Basophils 0, PUBS MCHC 33.2 Assessment/Plan Assessment: Patient is a 86 y/o M with PMH HTN, HLD, CAD S/P CABG, hypothyroidism, CK D, anemia, GI bleed, history of colon cancer S/P resection, HFpEF, chronic pain on pain stimulator, ROBYN not on CPAP, on nighttime oxygen was admitted for worsening creatinine levels in his recent blood work. He was also being treated for balance issues and hallucinations by his PCP. Imaging done as inpatient Chest x-ray 09/09/16 1. Interval placement of a large bore right jugular central venous catheter which is visualized terminating within the right atrium. Otherwise, no significant interval changes in the appearance of the chest. 2. Persistent elevation of the left hemidiaphragm. Left basilar opacification may reflect atelectasis. Superimposed infection cannot be excluded in the appropriate clinical setting. Patient had PICC line insertion on 09/07/16 Dialysis initiated on 09/07/16 Renal ultrasound 08/30/16 1. Bilateral normal size kidneys with evidence of marked diffuse cortical thinning on the right and moderate diffuse cortical thinning on the left with superimposed multiple cystic abnormalities, as described above. 2. No sonographic evidence of hydronephrosis on either side. Problem list 1. 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 Aspiration pneumonia 3. Hypertension 4 . postherpetic neuralgia 5. Hematuria 6. Coronary artery disease 7. Urinary retention- still having Mims catheter 8. Suicidal ideation Plan Acute kidney disease in chronic kidney disease unsure if it is progressing to end-stage renal disease Patient last dialysis was on 09/14. He was seen by dual rate dealer, if his creatinine continue to rise over the weakend then will need to re-start treatment. Will repeat BEP tomorrow C3 109, C426, P ANCA positive, ruchi negative. Elevated [place] and lambda light chains Patient was on a very high-dose of Lasix as an outpatient which is being held currently as patient is on hemodialysis Continue to avoid nephrotoxic medications Nephrology consult service on board and appreciate the recommendations B/L lE pain: Lidoderm patch was added Hematuria/ resolved Probably due to Mims insertion. Hematuria appreciated again on 09/15/16, possibly traumatic in nature as patient is repeatedly doing to bathroom for his diarrhea. We'll continue to keep the Mims until the creatinine reaches the baseline Possible aspiration pneumonia/ currently on RA Chest x-ray shows elevation of left hemidiaphragm with left basilar volume loss and possible consolidation Patient has no leukocytosis and is afebrile Is continue to be off antibiotics If he spikes fever can panculture and start antibiotics Hypertension Continue labetalol, hydralazine and amlodipine Danny hold Lasix as above Postherpetic neuralgia Patient on Lyrica for pain control Hallucinations Patient had some hallucinations previously which have now resolved Suicidal ideation Patient was frustated yesterday due to his medical problems. Patient evaluated by psychiatric service on 09/14/16. They recommended Effexor at half her typical dose.will hold off on that by now as the drug should be avoided in renal impairement. Per psych patient would benefit from talk therapy and they want to refer the patient to outpatient services Diarrhea Patient has been having loose stools since 09/14/16 C. diff negative. Diarrhea has resolved. Diet - Heart healthy Diet DVT prophylaxis-ALP S/heparin Code Status -Full Code Problem List: 1. CKD (chronic kidney disease) 2. GURPREET (acute kidney injury) 3. Shingles Pain Ratin Pain Location: B/L LE Pain Goal: Pain 4 or less Pain Plan: iv tylenol Tomorrow's Labs & Rationales: CBC, BEP DVT/Prophylaxis: pharmacological
--- NOTE | 2016-09-17 11:08 | PN- Nephrology ---
Assessment/Plan Assessment: Creatinine still creeping up. No uremic symtpoms. Suggestion: No urgent dialysis need but if creatinine continues to climb over the weekend will need to re-start treatment. Unclear if one gets systemic levels from topical NSAIDs but would consider stopping them. Check daily labs. Subjective Subjective: Patient feeling well, deneis N/V SOB. Objective Vital Signs and I&Os Vital Signs Date Time Temp Pulse Resp B/P Pulse O2 O2 Flow FiO2 Ox Delivery Rate 09/17 1011 72 140/80 09/17 1011 72 140/80 09/17 1011 72 140/80 09/17 1011 72 140/80 09/17 0646 97.5 67 22 178/68 94 Room Air 09/16 2253 98.1 78 22 170/70 94 Room Air 09/16 213 78 170/70 09/16 2137 74 170/70 09/16 1450 98.2 69 20 152/82 94 Intake & Output 09/17 1600 09/17 0400 09/16 1600 09/16 0400 09/15 1600 09/15 0400 Intake Total 240 760 600 210 980 300 Output Total 225 210 220 80 Balance 240 535 390 -10 900 300 Intake, IV 10 0 400 200 Intake, Oral 240 750 600 210 580 100 Number 0 0 Bowel Movements Output, Urine 225 210 220 80 Patient 231 lb 229 lb Weight Physical Exam: NAD VS as above: Lungs: clear CV: no rub Abd:nontender Exts: no edema Neuro: A&O Current Medications: Current Medications Sig/Tiffanie Start time Last Medication Dose Route Stop Time Status Admin Acetaminophen 650 MG .STK-MED ONE 09/16 2129 DC PO 09/16 2130 Acetaminophen 1,000 MG Q6P PRN 09/14 221 AC N/A 1 UNIT IV Acetaminophen 650 MG Q6P PRN 08/30 0015 AC 09/17 PO 0614 Amlodipine Besylate 10 MG DAILY 08/30 1000 AC 09/17 PO 1011 Atorvastatin Calcium 20 MG DAILY 08/30 1000 AC 09/17 PO 1011 Cholecalciferol 1,000 IU DAILY 08/30 1000 AC 09/17 PO 1010 Diclofenac Sodium 1 ANI 4 TIMES/DAY 09/16 1800 CAN TOP Epoetin Earnest 3,000 UNIT MoWeFr PRN 09/09 914 AC IV Epoetin Earnest 2,000 UNIT MoWeFr PRN 03/10 0915 AC IV Erythromycin 1 ANI AT BEDTIME 08/30 2200 AC 09/16 OPH 2137 Ezetimibe 10 MG DAILY 08/30 1000 AC 09/17 PO 1010 Heparin Sodium 5,000 UNIT Q8 08/30 0600 AC 09/17 (Porcine) SC 0614 Hydralazine HCl 100 MG BID 08/30 1000 AC 09/17 PO 1011 Isosorbide 60 MG DAILY 08/30 1000 AC 09/17 Mononitrate PO 1011 Labetalol HCl 300 MG BID 08/30 1000 AC 09/17 PO 1011 Levothyroxine Sodium 0.05 MG DAILY AC 08/30 0700 AC 09/17 PO 0614 Methyl Salicylate 1 ANI Q3P PRN 09/16 1700 AC 09/16 TOP 2134 Patient Own 1 UNIT Q8P PRN 08/30 0115 AC 09/13 Medication TOP 1649 Results Pertinent Lab Results: Laboratory Tests 09/17 09/16 0700 1029 Chemistry Sodium (137 - 145 mmol/L) 137 135 L Potassium (3.5 - 5.1 mmol/L) 3.6 3.9 Chloride (98 - 107 mmol/L) 101 99 Carbon Dioxide (22 - 30 mmol/L) 25 22 Anion Gap (5 - 16) 11 14 BUN (9 - 20 mg/dL) 36 H 31 H Creatinine (0.7 - 1.2 mg/dL) 4.4 H 3.8 H Estimated GFR (>60 ml/min) 13 L 15 L BUN/Creatinine Ratio (7 - 25 %) 8.2 8.2 Hematology CBC w Diff NO MAN DIFF REQ NO MAN DIFF REQ WBC (4.8 - 10.8 /CUMM) 4.5 L 5.4 RBC (4.70 - 6.10 /CUMM) 3.14 L 3.26 L Hgb (14.0 - 18.0 G/DL) 9.2 L 9.5 L Hct (42 - 52 %) 27.6 L 28.8 L MCV (80.0 - 94.0 FL) 88.0 88.4 MCH (27.0 - 31.0 PG) 29.3 29.2 RDW (11.5 - 14.5 %) 14.5 13.9 Plt Count (130 - 400 /CUMM) 215 232 MPV (7.4 - 10.4 FL) 7.1 L 7.3 L Gran % (42.2 - 75.2 %) 73.3 78.3 H Lymphocytes % (20.5 - 51.1 %) 11.1 L 7.9 L Monocytes % (1.7 - 9.3 %) 10.3 H 9.5 H Eosinophils % (0 - 5 %) 4.9 3.9 Basophils % (0.0 - 2.0 %) 0.4 0.4 Absolute Granulocytes (1.4 - 6.5 /CUMM) 3.3 4.2 Absolute Lymphocytes (1.2 - 3.4 /CUMM) 0.5 L 0.4 L Absolute Monocytes (0.10 - 0.60 /CUMM) 0.5 0.5 Absolute Eosinophils (0.0 - 0.7 /CUMM) 0.2 0.2 Absolute Basophils (0.0 - 0.2 /CUMM) 0 0 PUBS MCHC (33.0 - 37.0 G/DL) 33.2 33.0 09/15 09/15 1810 0853 Chemistry Sodium (137 - 145 mmol/L) 140 Potassium (3.5 - 5.1 mmol/L) 3.4 L Chloride (98 - 107 mmol/L) 102 Carbon Dioxide (22 - 30 mmol/L) 24 Anion Gap (5 - 16) 14 BUN (9 - 20 mg/dL) 18 Creatinine (0.7 - 1.2 mg/dL) 3.3 H Estimated GFR (>60 ml/min) 18 L BUN/Creatinine Ratio (7 - 25 %) 5.5 L Urines Urine Color (YEL,AMB,STR) BLDY H Urine Clarity (CLEAR) TURBD H Urine pH (5.0 - 8.0) 5.5 Ur Specific [place] (1.001 - 1.035) >= 1.030 Urine Protein (NEG,<30 MG/DL) >=300 H Urine Ketones (NEG) 15 H Urine Nitrite (NEG) POS H Urine Bilirubin (NEG) POS@ICTO H Urine Urobilinogen (0.1 - 1.0 EU/dl) 1.0 Ur Leukocyte Esterase (NEG) TRACE H Ur Microscopic SEDIMENT EXAMINED Urine RBC (0 - 5 /HPF) PACKD H Urine WBC (0 - 2 /HPF) 1-3 H Ur Epithelial Cells (NONE,FEW) FEW Hyaline Casts (0/LPF) RARE H Urine Hemoglobin (NEG) LARGE H Urine Glucose (N MG/DL) NEG 09/15 09/14 0615 1230 Chemistry BUN (9 - 20 mg/dL) 11 Hematology CBC w Diff NO MAN DIFF REQ WBC (4.8 - 10.8 /CUMM) 5.5 RBC (4.70 - 6.10 /CUMM) 3.23 L Hgb (14.0 - 18.0 G/DL) 9.4 L Hct (42 - 52 %) 28.8 L MCV (80.0 - 94.0 FL) 89.3 MCH (27.0 - 31.0 PG) 29.2 RDW (11.5 - 14.5 %) 14.3 Plt Count (130 - 400 /CUMM) 183 MPV (7.4 - 10.4 FL) 7.7 Gran % (42.2 - 75.2 %) 76.0 H Lymphocytes % (20.5 - 51.1 %) 10.7 L Monocytes % (1.7 - 9.3 %) 9.6 H Eosinophils % (0 - 5 %) 3.5 Basophils % (0.0 - 2.0 %) 0.2 Absolute Granulocytes (1.4 - 6.5 /CUMM) 4.2 Absolute Lymphocytes (1.2 - 3.4 /CUMM) 0.6 L Absolute Monocytes (0.10 - 0.60 /CUMM) 0.5 Absolute Eosinophils (0.0 - 0.7 /CUMM) 0.2 Absolute Basophils (0.0 - 0.2 /CUMM) 0 PUBS MCHC (33.0 - 37.0 G/DL) 32.7 L
--- NOTE | 2016-09-17 11:20 | PN- Att Addend ---
Attending Addendum Attending Brief Note Patient seen and examined. Plan of care discussed with the medical team and the patient. Available lab work and radiology test reports were reviewed. Patient denies any recent fever chills or chest pains. He appears awake alert and oriented this morning. He sitting in chair and does not exhibit any confusion no distress. He is currently off oxygen. Vital Signs Date Time Temp Pulse Resp B/P Pulse O2 O2 Flow FiO2 Ox Delivery Rate 09/17 1011 72 140/80 09/17 1011 72 140/80 09/17 1011 72 140/80 09/17 1011 72 140/80 09/17 0646 97.5 67 22 178/68 94 Room Air 09/16 2253 98.1 78 22 170/70 94 Room Air 09/16 2137 78 170/70 09/16 2137 74 170/70 09/16 1450 98.2 69 20 152/82 94 Intake & Output 09/17 1600 09/17 0800 09/17 0000 Intake Total 240 760 Output Total 225 Balance 240 535 Intake, IV 10 Intake, Oral 240 750 Output, Urine 225 Patient 231 lb Weight Exam: General: Patient is lethargic and awake and l oriented without any distress; no confusion noted CVS: S1 plus S2 without any murmur or gallops Chest: Few scattered crepitation without any wheeze. There is no respiratory distress. Abdomen: Soft nontender, bowel sound present, no guarding or rebound MARKETING OUTREACH COORDINATOR: Awake alert oriented without any focal neuro deficit and follows command appropriately Extremities: No edema; no clubbing or cyanosis noted Laboratory Tests 09/17 0700 Chemistry Sodium (137 - 145 mmol/L) 137 Potassium (3.5 - 5.1 mmol/L) 3.6 Chloride (98 - 107 mmol/L) 101 Carbon Dioxide (22 - 30 mmol/L) 25 Anion Gap (5 - 16) 11 BUN (9 - 20 mg/dL) 36 H Creatinine (0.7 - 1.2 mg/dL) 4.4 H Estimated GFR (>60 ml/min) 13 L BUN/Creatinine Ratio (7 - 25 %) 8.2 Hematology CBC w Diff NO MAN DIFF REQ WBC (4.8 - 10.8 /CUMM) 4.5 L RBC (4.70 - 6.10 /CUMM) 3.14 L Hgb (14.0 - 18.0 G/DL) 9.2 L Hct (42 - 52 %) 27.6 L MCV (80.0 - 94.0 FL) 88.0 MCH (27.0 - 31.0 PG) 29.3 RDW (11.5 - 14.5 %) 14.5 Plt Count (130 - 400 /CUMM) 215 MPV (7.4 - 10.4 FL) 7.1 L Gran % (42.2 - 75.2 %) 73.3 Lymphocytes % (20.5 - 51.1 %) 11.1 L Monocytes % (1.7 - 9.3 %) 10.3 H Eosinophils % (0 - 5 %) 4.9 Basophils % (0.0 - 2.0 %) 0.4 Absolute Granulocytes (1.4 - 6.5 /CUMM) 3.3 Absolute Lymphocytes (1.2 - 3.4 /CUMM) 0.5 L Absolute Monocytes (0.10 - 0.60 /CUMM) 0.5 Absolute Eosinophils (0.0 - 0.7 /CUMM) 0.2 Absolute Basophils (0.0 - 0.2 /CUMM) 0 PUBS MCHC (33.0 - 37.0 G/DL) 33.2 Assessment * Acute and chronic renal failure- hemodialysis currently on hold ; unfortunately his creatinine has been creeping up again. case discussed with Dr. Barnett. Nephrology to reevaluate whether patient needs to go back on hematemesis. Note the patient urine output has been low. * hx CHF given the patient's tachypnea and increasing hypoxia; recent x-rays do not show any acute CHF, however patient oxygenation and hypoxia did improve after hemodialysis * hyperkalemia- potassium has improved * Confusion and delirium- improved Plan * Continue to monitor respiratory status; * Await further decision about hemodialysis * Follow-up lab work which will be done during dialysis * Continue Incentive spirometry
[2016-09-17 14:04] VITALS: BP 150/82
[2016-09-17 22:26] VITALS: BP 130/60
[2016-09-18 07:09] VITALS: BP 132/54
[2016-09-18 08:09] LABS: ABSOLUTE BASOPHIL COUNT 0 /CUMM (0.0-0.2); ABSOLUTE EOSINOPHIL COUNT 0.2 /CUMM (0.0-0.7); ABSOLUTE GRANULOCYTE CT 3.2 /CUMM (1.4-6.5); ABSOLUTE LYMPH COUNT 0.5 /CUMM (1.2-3.4); ABSOLUTE MONOCYTE COUNT 0.5 /CUMM (0.10-0.60); BASOPHIL % 0.2 % (0.0-2.0); EOSINOPHIL % 4.2 % (0-5); HEMATOCRIT 28.4 % (42-52); MEAN CORPUSCULAR HGB 29.3 PG (27.0-31.0); MEAN PLATELET VOLUME 7.2 FL (7.4-10.4); PLATELET COUNT 251 /CUMM (130-400); RBC DISTRIBUTION WIDTH 14.3 % (11.5-14.5); RED BLOOD CELL CT 3.19 /CUMM (4.70-6.10); WHITE BLOOD CELL COUNT 4.5 /CUMM (4.8-10.8)
--- NOTE | 2016-09-18 12:15 | PN- Att Addend ---
Attending Addendum Attending Brief Note Patient seen and examined. Plan of care discussed with the medical team and the patient. Available lab work and radiology test reports were reviewed. Patient denies any recent fever chills or chest pains. He appears awake alert and oriented this morning. He sitting in chair and does not exhibit any confusion no distress. He is currently off oxygen. Vital Signs Date Time Temp Pulse Resp B/P Pulse O2 O2 Flow FiO2 Ox Delivery Rate 09/18 912 98.1 72 20 132/54 09/18 912 98.1 72 20 132/54 09/18 0913 98.1 72 20 132/54 09/18 09 98.1 72 20 132/54 09/18 0709 98.1 72 20 13254 93 Room Air 09/17 2226 98.4 68 20 130/60 92 09/17 2038 70 150/82 09/17 2038 70 150/82 09/17 1404 97.9 70 20 150/82 92 Intake & Output 09/18 1600 09/18 0800 09/18 0000 Intake Total 480 480 Output Total 500 300 Balance -20 180 Intake, Oral 480 480 Output, Urine 500 300 Patient 230 lb Weight Exam: General: Patient is lethargic and awake and l oriented without any distress; no confusion noted CVS: S1 plus S2 without any murmur or gallops Chest: Few scattered crepitation without any wheeze. There is no respiratory distress. Abdomen: Soft nontender, bowel sound present, no guarding or rebound SKIAGRAPHER: Awake alert oriented without any focal neuro deficit and follows command appropriately Extremities: No edema; no clubbing or cyanosis noted Laboratory Tests 09/18 0659 Chemistry Sodium (137 - 145 mmol/L) 136 L Potassium (3.5 - 5.1 mmol/L) 3.5 Chloride (98 - 107 mmol/L) 101 Carbon Dioxide (22 - 30 mmol/L) 23 Anion Gap (5 - 16) 12 BUN (9 - 20 mg/dL) 40 H Creatinine (0.7 - 1.2 mg/dL) 4.7 H Estimated GFR (>60 ml/min) 12 L BUN/Creatinine Ratio (7 - 25 %) 8.5 Hematology CBC w Diff NO MAN DIFF REQ WBC (4.8 - 10.8 /CUMM) 4.5 L RBC (4.70 - 6.10 /CUMM) 3.19 L Hgb (14.0 - 18.0 G/DL) 9.4 L Hct (42 - 52 %) 28.4 L MCV (80.0 - 94.0 FL) 89.0 MCH (27.0 - 31.0 PG) 29.3 RDW (11.5 - 14.5 %) 14.3 Plt Count (130 - 400 /CUMM) 251 MPV (7.4 - 10.4 FL) 7.2 L Gran % (42.2 - 75.2 %) 72.0 Lymphocytes % (20.5 - 51.1 %) 11.6 L Monocytes % (1.7 - 9.3 %) 12.0 H Eosinophils % (0 - 5 %) 4.2 Basophils % (0.0 - 2.0 %) 0.2 Absolute Granulocytes (1.4 - 6.5 /CUMM) 3.2 Absolute Lymphocytes (1.2 - 3.4 /CUMM) 0.5 L Absolute Monocytes (0.10 - 0.60 /CUMM) 0.5 Absolute Eosinophils (0.0 - 0.7 /CUMM) 0.2 Absolute Basophils (0.0 - 0.2 /CUMM) 0 PUBS MCHC (33.0 - 37.0 G/DL) 33.0 ssessment * Acute and chronic renal failure- hemodialysis currently on hold ; unfortunately his creatinine has been creeping up again. case discussed with Dr. Barnett yesterday. Nephrology to reevaluate whether patient needs to go back on hematemesis. Note the patient urine output has been low. Patient likely will need hemodialysis tomorrow. * hx CHF given the patient's tachypnea and increasing hypoxia; recent x-rays do not show any acute CHF, however patient oxygenation and hypoxia did improve after hemodialysis * hyperkalemia- potassium has improved * Confusion and delirium- improved Plan * Continue to monitor respiratory status; * Await further decision about hemodialysis * Follow-up lab work which will be done during dialysis * Continue Incentive spirometry
--- NOTE | 2016-09-18 12:46 | PN- Housestaff ---
Subjective Follow-up For: GURPREET Urinary retension CKD B/L LE pain Subjective: Patient seen and examined, he is setting in the chair, not in distress. He is oriented and cooperative. Denies chest pain, SOB. No abdominal or flank pain. Review of Systems Constitutional: Reports: see HPI. Objective Last 24 Hrs of Vital Signs/I&O Vital Signs Date Time Temp Pulse Resp B/P Pulse O2 O2 Flow FiO2 Ox Delivery Rate 09/18 912 98.1 72 20 132/54 09/18 09 98.1 72 20 132/54 09/18 0913 98.1 72 20 132/54 09/18 0913 98.1 72 20 132/54 09/18 0709 98.1 72 20 132/54 93 Room Air 09/17 2226 98.4 68 20 130/60 92 09/17 2038 70 150/82 09/17 2038 70 150/82 09/17 1404 97.9 70 20 150/82 92 Intake & Output 09/18 1600 09/18 0800 09/18 0000 Intake Total 480 480 Output Total 500 300 Balance -20 180 Intake, Oral 480 480 Output, Urine 500 300 Patient 230 lb Weight Physical Exam General Appearance: Alert, Oriented X3, Cooperative, No Acute Distress Cardiovascular: Normal S1, Normal S2, systolic murmur grade 3/6 Lungs: Clear to Auscultation, Normal Air Movement Abdomen: Normal Bowel Sounds, Soft, No Tenderness Extremities: No Edema, Normal Pulses, No Tenderness/Swelling Current Medications: Current Medications Sig/Tiffanie Start time Last Medication Dose Route Stop Time Status Admin Acetaminophen 650 MG .STK-MED ONE 09/18 2155 DC PO 09/17 2156 Acetaminophen 1,000 MG Q6P PRN 09/14 2214 AC N/A 1 UNIT IV Acetaminophen 650 MG Q6P PRN 08/30 0015 AC 09/17 PO 2199 Amlodipine Besylate 10 MG DAILY 08/30 1000 AC 09/18 PO 09 Atorvastatin Calcium 20 MG DAILY 08/30 1000 AC 09/18 PO 912 Cholecalciferol 1,000 IU DAILY 08/30 1000 AC 09/18 PO 0914 Epoetin Earnest 3,000 UNIT MoWeFr PRN 09/09 914 AC IV Epoetin Earnest 2,000 UNIT MoWeFr PRN 09/09 914 AC IV Erythromycin 1 ANI AT BEDTIME 08/30 2199 AC 09/17 OPH 2041 Ezetimibe 10 MG DAILY 08/30 1000 AC 09/18 PO 0914 Heparin Sodium 5,000 UNIT Q8 08/30 0600 AC 09/18 (Porcine) SC 1501 Hydralazine HCl 100 MG BID 08/30 1000 AC 09/18 PO 0913 Isosorbide 60 MG DAILY 08/30 1000 AC 09/18 Mononitrate PO 0913 Labetalol HCl 300 MG BID 08/30 1000 AC 09/18 PO 0913 Levothyroxine Sodium 0.05 MG DAILY AC 08/30 0700 AC 09/18 PO 0559 Lidocaine 1 PAT DAILY PRN 09/17 1200 AC 09/17 EXT 1243 Methyl Salicylate 1 ANI Q3P PRN 09/16 1700 AC 09/16 TOP 2134 Patient Own 1 UNIT Q8P PRN 08/30 0115 AC 09/13 Medication TOP 1649 Last 24 Hrs of Lab/Jamel Results Last 24 Hrs of Labs/Mics: Laboratory Tests 09/18/16 0659: Anion Gap 12, Estimated GFR 12 L, BUN/Creatinine Ratio 8.5, CBC w Diff NO MAN DIFF REQ, RBC 3.19 L, MCV 89.0, MCH 29.3, RDW 14.3, MPV 7.2 L, Gran % 72.0, Lymphocytes % 11.6 L, Monocytes % 12.0 H, Eosinophils % 4.2, Basophils % 0.2, Absolute Granulocytes 3.2, Absolute Lymphocytes 0.5 L, Absolute Monocytes 0.5, Absolute Eosinophils 0.2, Absolute Basophils 0, PUBS MCHC 33.0 Lines/Diet/Fluids Lines: peripheral lines Assessment/Plan Assessment: Patient is a 86 y/o M with PMH HTN, HLD, CAD S/P CABG, hypothyroidism, CK D, anemia, GI bleed, history of colon cancer S/P resection, HFpEF, chronic pain on pain stimulator, ROBYN not on CPAP, on nighttime oxygen was admitted for worsening creatinine levels in his recent blood work. He was also being treated for balance issues and hallucinations by his PCP. Problem list 1. 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 Aspiration pneumonia 3. Hypertension 4 . postherpetic neuralgia 5. Hematuria 6. Coronary artery disease 7. Urinary retention- still having Mims catheter 8. Suicidal ideation Plan Acute kidney disease in chronic kidney disease unsure if it is progressing to end-stage renal disease His creatine continue andrea over the weekend, so he may need to restart dialysis Will repeat BEP tomorrow Continue to avoid nephrotoxic medications Nephrology consult service on board and appreciate the recommendations B/L lE pain Lidoderm patch was added Hematuria/ resolved Probably due to Mims insertion. We'll continue to keep the Mims until the creatinine reaches the baseline Possible aspiration pneumonia currently on RA Chest x-ray shows elevation of left hemidiaphragm with left basilar volume loss and possible consolidation Patient has no leukocytosis and is afebrile He is off antibiotics If he spikes fever can panculture and start antibiotics Hypertension Continue labetalol, hydralazine and amlodipine Danny hold Lasix as above Postherpetic neuralgia Patient on Lyrica for pain control Hallucinations Patient had some hallucinations previously which have now resolved Diet - Heart healthy Diet DVT prophylaxis-ALP S/heparin Code Status -Full Code Problem List: 1. CKD (chronic kidney disease) Pain Ratin Pain Location: n/a Pain Goal: Remain pain free Pain Plan: see note Tomorrow's Labs & Rationales: BEP patient to outpatient services Diarrhea Patient has been having loose stools since 09/14/16 C. diff negative. Diarrhea has resolved. Diet - Heart healthy Diet DVT prophylaxis-ALP S/heparin Code Status -Full Code
[2016-09-18 14:53] VITALS: BP 160/80
[2016-09-18 21:47] VITALS: BP 166/84
[2016-09-19 06:56] VITALS: BP 160/80
--- NOTE | 2016-09-19 07:36 | PN- Housestaff ---
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 He looks well he's making more urine than before. His creatinine has seemed to stabilize, he was evaluated by renal today, the plan is that if the creatinine remains stable will get the Tal cath out and discharge the patient. His Mims catheter has been DC'd today. Patient has been afebrile, his blood pressure was little elevated in the morning and 160/80 and he was given his labetalol. Patient has no other active issues. Review of Systems Constitutional: Reports: see HPI. Objective Last 24 Hrs of Vital Signs/I&O Vital Signs Date Time Temp Pulse Resp B/P Pulse O2 O2 Flow FiO2 Ox Delivery Rate 09/19 928 160/80 09/19 0928 160/80 09/19 0656 98.4 74 20 160/80 93 Room Air 09/18 2147 98.9 75 20 166/84 92 09/18 2140 75 166/84 09/18 2140 75 166/84 09/18 1453 98.0 64 20 160/80 92 Intake & Output 09/19 1600 09/19 0800 09/19 0000 Intake Total 100 100 Output Total 550 250 Balance -450 -150 Intake, Oral 100 100 Number 1 Bowel Movements Output, Urine 550 250 Patient 104.468 kg Weight Physical Exam General Appearance: Alert, Oriented X3, Cooperative Skin: No Rashes HEENT: Atraumatic Neck: Supple Cardiovascular: Normal S1, Normal S2, No Murmurs Lungs: Normal Air Movement Abdomen: Soft, No Tenderness Neurological: Normal Speech, Normal Tone Current Medications: Current Medications Sig/Tiffanie Start time Last Medication Dose Route Stop Time Status Admin Acetaminophen 650 MG .STK-MED ONE 09/18 233 DC PO 09/18 233 Acetaminophen 1,000 MG Q6P PRN 09/14 2214 AC N/A 1 UNIT IV Acetaminophen 650 MG Q6P PRN 08/30 0015 AC 09/18 PO 234 Amlodipine Besylate 10 MG DAILY 08/30 1000 AC 09/19 PO 928 Atorvastatin Calcium 20 MG DAILY 08/30 1000 AC 09/19 PO 928 Cholecalciferol 1,000 IU DAILY 08/30 1000 AC 09/19 PO 0928 Diphenhydramine HCl 25 MG ONCE ONE 09/18 2345 DC 09/18 PO 09/18 2346 2342 Epoetin Earnest 3,000 UNIT MoWeFr PRN 09/09 914 AC IV Epoetin Earnest 2,000 UNIT MoWeFr PRN 09/09 914 AC IV Erythromycin 1 ANI AT BEDTIME 08/30 2200 AC 09/18 OPH 2141 Ezetimibe 10 MG DAILY 08/30 1000 AC 09/19 PO 0928 Heparin Sodium 5,000 UNIT Q8 08/30 0600 AC 09/19 (Porcine) SC 0655 Hydralazine HCl 100 MG BID 08/30 1000 AC 09/19 PO 0929 Isosorbide 60 MG DAILY 08/30 1000 AC 09/19 Mononitrate PO 09 Labetalol HCl 300 MG BID 08/30 1000 AC 09/19 PO 0928 Levothyroxine Sodium 0.05 MG DAILY AC 08/30 0700 AC 09/19 PO 0654 Lidocaine 1 PAT DAILY PRN 09/17 1200 AC 09/17 EXT 1243 Methyl Salicylate 1 ANI Q3P PRN 09/16 1700 AC 09/16 TOP 2134 Patient Medication 1 ED .STK-MED ONE 09/19 1338 NV Teaching ED 09/19 1339 Patient Own 1 UNIT Q8P PRN 08/30 0115 AC 09/13 Medication TOP 1649 Last 24 Hrs of Lab/Jamel Results Last 24 Hrs of Labs/Mics: Laboratory Tests 09/19/16 0732: Anion Gap 12, Estimated GFR 12 L, BUN/Creatinine Ratio 8.7 Assessment/Plan Assessment: Patient is a 86 y/o M with PMH HTN, HLD, CAD S/P CABG, hypothyroidism, CK D, anemia, GI bleed, history of colon cancer S/P resection, HFpEF, chronic pain on pain stimulator, ROBYN not on CPAP, on nighttime oxygen was admitted for worsening creatinine levels in his recent blood work. He was also being treated for balance issues and hallucinations by his PCP. Problem list 1. 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 Aspiration pneumonia 3. Hypertension 4 . postherpetic neuralgia 5. Hematuria 6. Coronary artery disease 7. Urinary retention- still having Mims catheter 8. Suicidal ideation Plan Acute kidney disease in chronic kidney disease unsure if it is progressing to end-stage renal disease His creatine remained stable at 4.5, he was evaluated by channel rebuilder today. The plan is that we will monitor his creatinine tomorrow if it remains stable we will will take out the Tal cath and probably discharge the patient Continue to avoid nephrotoxic medications Nephrology consult service on board and appreciate the recommendations B/L lE pain Lidoderm patch was added Hematuria/ resolved Was probably due to Mims insertion. Mims has been removed today. Possible aspiration pneumonia currently on RA Chest x-ray shows elevation of left hemidiaphragm with left basilar volume loss and possible consolidation Patient has no leukocytosis and is afebrile He is off antibiotics If he spikes fever can panculture and start antibiotics Hypertension Continue labetalol, hydralazine and amlodipine Continue to Lasix as above Postherpetic neuralgia Patient on Lyrica for pain control Hallucinations Patient had some hallucinations previously which have now resolved Diet - Heart healthy Diet DVT prophylaxis-ALP S/heparin Code Status -Full Code Problem List: 1. Renal failure Pain Ratin Pain Location: N/A Pain Goal: Pain 4 or less Pain Plan: TYLENOL PRN FOR PAIN Tomorrow's Labs & Rationales: CAREY [place] MD,KRYSTYNA 09/19/16 1337: Attending MD Review Statement Attending Statement Attending MD Statement: examined this patient, discuss w/resident/PA/PRECONSTRUCTION MANAGER, agreed w/resident/PA/PRECONSTRUCTION MANAGER, reviewed EMR data (avail), discussed with nursing, discussed with case mgmt, amended to note Attending Assessment/Plan: Patient seen and examined. Resting comfortably limits in acute distress. No issues overnight. Alert and oriented 3. Maintaining saturation on room air. Voided about 950 mL of urine yesterday. Creatinine level has only mildly increased over the weekend. Nephrology follow-up appreciated. Plans are to reevaluate creatinine level in the morning. If his GFR is stable he will be discharged home with no further need for dialysis.
--- NOTE | 2016-09-19 11:47 | PN- Nephrology ---
Assessment/Plan Assessment: 1. GURPREET: ? etiology --> presumed ATN - improving w nonoliguria w/o HD need today 2. CKD: severe, stage 4 @ baseline Suggestion: 1. D/c Prasanna 2. recheck labs in AM --> if GFR stable --> remove HD cath & discharge Subjective Subjective: No SOB No uremic sx Nonoliguric Objective Vital Signs and I&Os Vital Signs Date Time Temp Pulse Resp B/P Pulse O2 O2 Flow FiO2 Ox Delivery Rate 09/19 09 160/80 09/19 0928 160/80 09/19 0656 98.4 74 20 160/80 93 Room Air 09/18 2147 98.9 75 20 166/84 92 09/18 2140 75 166/84 09/18 2140 75 166/84 09/18 1453 98.0 64 20 160/80 92 Intake & Output 09/19 1600 09/19 0400 09/18 1600 09/18 0400 09/17 1600 09/17 0400 Intake Total 292 302 6716 480 1200 760 Output Total 550 250 700 300 250 225 Balance -450 -150 580 180 950 535 Intake, IV 0 10 Intake, Oral 536 845 4012 480 1200 750 Number 1 0 Bowel Movements Output, Urine 550 250 700 300 250 225 Patient 230 lb 230 lb 231 lb Weight Physical Exam General Appearance: well developed/nourished, no apparent distress Head: atraumatic, normal appearance Ears, Nose, Throat: normal ENT inspection Neck: R IJ cath tunelled subclaviam location Respiratory: normal breath sounds, no respiratory distress, quiet respiration, lungs clear Cardiovascular: regular rate/rhythm, edema (none) Abdomen: soft, non-tender, no organomegaly Back: normal inspection Extremities: no edema Neurologic/Psychiatric: no motor/sensory deficits, awake, alert Lymphatic: no anterior cervical noble Current Medications: Current Medications Sig/Tiffanie Start time Last Medication Dose Route Stop Time Status Admin Acetaminophen 650 MG .STK-MED ONE 09/18 233 DC PO 09/18 233 Acetaminophen 1,000 MG Q6P PRN 09/14 221 AC N/A 1 UNIT IV Acetaminophen 650 MG Q6P PRN 08/30 0015 AC 09/18 PO 2342 Amlodipine Besylate 10 MG DAILY 08/30 1000 AC 09/19 PO 09 Atorvastatin Calcium 20 MG DAILY 08/30 1000 AC 09/19 PO 928 Cholecalciferol 1,000 IU DAILY 08/30 1000 AC 09/19 PO 0928 Diphenhydramine HCl 25 MG ONCE ONE 09/18 2345 DC 09/18 PO 09/18 2346 2342 Epoetin Earnest 3,000 UNIT MoWeFr PRN 09/09 09 AC IV Epoetin Earnest 2,000 UNIT MoWeFr PRN 09/09 09 AC IV Erythromycin 1 ANI AT BEDTIME 08/30 2200 AC 09/18 OPH 2141 Ezetimibe 10 MG DAILY 08/30 1000 AC 09/19 PO 0928 Heparin Sodium 5,000 UNIT Q8 08/30 0600 AC 09/19 (Porcine) SC 0655 Hydralazine HCl 100 MG BID 08/30 1000 AC 09/19 PO 09 Isosorbide 60 MG DAILY 08/30 1000 AC 09/19 Mononitrate PO 928 Labetalol HCl 300 MG BID 08/30 1000 AC 09/19 PO 0928 Levothyroxine Sodium 0.05 MG DAILY AC 08/30 0700 AC 09/19 PO 0654 Lidocaine 1 PAT DAILY PRN 09/17 1200 AC 09/17 EXT 1243 Methyl Salicylate 1 ANI Q3P PRN 09/16 1700 AC 09/16 TOP 2134 Patient Own 1 UNIT Q8P PRN 08/30 0115 AC 09/13 Medication TOP 1649 Results Pertinent Lab Results: Laboratory Tests 09/19 09/18 0732 0659 Chemistry Sodium (137 - 145 mmol/L) 137 136 L Potassium (3.5 - 5.1 mmol/L) 3.9 3.5 Chloride (98 - 107 mmol/L) 102 101 Carbon Dioxide (22 - 30 mmol/L) 23 23 Anion Gap (5 - 16) 12 12 BUN (9 - 20 mg/dL) 40 H 40 H Creatinine (0.7 - 1.2 mg/dL) 4.6 H 4.7 H Estimated GFR (>60 ml/min) 12 L 12 L BUN/Creatinine Ratio (7 - 25 %) 8.7 8.5 Hematology CBC w Diff NO MAN DIFF REQ WBC (4.8 - 10.8 /CUMM) 4.5 L RBC (4.70 - 6.10 /CUMM) 3.19 L Hgb (14.0 - 18.0 G/DL) 9.4 L Hct (42 - 52 %) 28.4 L MCV (80.0 - 94.0 FL) 89.0 MCH (27.0 - 31.0 PG) 29.3 RDW (11.5 - 14.5 %) 14.3 Plt Count (130 - 400 /CUMM) 251 MPV (7.4 - 10.4 FL) 7.2 L Gran % (42.2 - 75.2 %) 72.0 Lymphocytes % (20.5 - 51.1 %) 11.6 L Monocytes % (1.7 - 9.3 %) 12.0 H Eosinophils % (0 - 5 %) 4.2 Basophils % (0.0 - 2.0 %) 0.2 Absolute Granulocytes (1.4 - 6.5 /CUMM) 3.2 Absolute Lymphocytes (1.2 - 3.4 /CUMM) 0.5 L Absolute Monocytes (0.10 - 0.60 /CUMM) 0.5 Absolute Eosinophils (0.0 - 0.7 /CUMM) 0.2 Absolute Basophils (0.0 - 0.2 /CUMM) 0 PUBS MCHC (33.0 - 37.0 G/DL) 33.0 03/18 0700 Chemistry Sodium (137 - 145 mmol/L) 137 Potassium (3.5 - 5.1 mmol/L) 3.6 Chloride (98 - 107 mmol/L) 101 Carbon Dioxide (22 - 30 mmol/L) 25 Anion Gap (5 - 16) 11 BUN (9 - 20 mg/dL) 36 H Creatinine (0.7 - 1.2 mg/dL) 4.4 H Estimated GFR (>60 ml/min) 13 L BUN/Creatinine Ratio (7 - 25 %) 8.2 Hematology CBC w Diff NO MAN DIFF REQ WBC (4.8 - 10.8 /CUMM) 4.5 L RBC (4.70 - 6.10 /CUMM) 3.14 L Hgb (14.0 - 18.0 G/DL) 9.2 L Hct (42 - 52 %) 27.6 L MCV (80.0 - 94.0 FL) 88.0 MCH (27.0 - 31.0 PG) 29.3 RDW (11.5 - 14.5 %) 14.5 Plt Count (130 - 400 /CUMM) 215 MPV (7.4 - 10.4 FL) 7.1 L Gran % (42.2 - 75.2 %) 73.3 Lymphocytes % (20.5 - 51.1 %) 11.1 L Monocytes % (1.7 - 9.3 %) 10.3 H Eosinophils % (0 - 5 %) 4.9 Basophils % (0.0 - 2.0 %) 0.4 Absolute Granulocytes (1.4 - 6.5 /CUMM) 3.3 Absolute Lymphocytes (1.2 - 3.4 /CUMM) 0.5 L Absolute Monocytes (0.10 - 0.60 /CUMM) 0.5 Absolute Eosinophils (0.0 - 0.7 /CUMM) 0.2 Absolute Basophils (0.0 - 0.2 /CUMM) 0 PUBS MCHC (33.0 - 37.0 G/DL) 33.2 Imaging/Other Studies: Renal US: 1. Bilateral normal size kidneys with evidence of marked diffuse cortical thinning on the right and moderate diffuse cortical thinning on the left with superimposed multiple cystic abnormalities, as described above. 2. No sonographic evidence of hydronephrosis on either side.
[2016-09-19 14:37] VITALS: BP 160/72
--- NOTE | 2016-09-19 18:50 | PN- Psychiatry ---
Assessment/Plan Impression: The patient reports that his shingles pain is well-controlled with his current topical treatment, but pain is still present at times. He reports that he has been told he may not need hemodialysis, and that his catheter may be removed in the next day, or so. With his present, and with his permission, we discussed the possibilities of a return of the severe shingles pain, or the need for further hemodialysis. The patient verbalized understanding that if he has a return of depressive feelings, he will call the number I provided today for OPS. If he feels suicidal, he will call 911 or come to the ED. Suggestion: 1. If the patient agrees to follow-up and with approval from nephrology, consider Effexor ER 37.5 mg PO every morning. 2. Encourage the patient to make an intake appointment at [facility]. He and his have the contact information. [phone]. Milena Engel APRN, Pager [phone] Subjective Subjective: The patient is sitting in his cardio chair. His supportive is present, and left the room for the beginning of the interview. He is calm, cooperative, hard of hearing. He s alert and oriented. Denies AVH; presents no naye delusions. Denies symptoms of depression or anxiety. MMSE/Folstein today has a score of 23/28. He refuses to write a sentence or draw a figure, "I've been too shaky ever since I got sick with shingles last year." He scored 3/5 on spelling WORLD backwards. He could not recall 3 objects. He denies SI/HI, and presents no passive suicidal ideation. He states that when his shingles pain is severe, or he when he has needed hemodialysis, he would rather not be alive, but denies plan or intent. Those feelings are not currently present. Thought processes are logical and linear. Insight and judgment are intact. Objective Last 24 Hrs of Vital Signs/I&O Vital Signs Date Time Temp Pulse Resp B/P Pulse O2 O2 Flow FiO2 Ox Delivery Rate 09/19 1437 98.0 68 20 160/72 92 09/19 0929 160/80 09/19 0928 160/80 09/19 0656 98.4 74 20 160/80 93 Room Air 09/18 2146 98.9 75 20 166/84 92 09/180 75 166/84 09/19 2139 75 Intake & Output 09/19 1600 09/19 0800 09/19 0000 Intake Total 400 100 100 Output Total 500 550 250 Balance -100 -450 -150 Intake, IV 0 Intake, Oral 400 100 100 Number 2 Bowel Movements Output, Urine 500 550 250 Patient 230 lb Weight
[2016-09-19 21:50] VITALS: BP 150/72
[2016-09-20 06:28] VITALS: BP 140/66
--- NOTE | 2016-09-20 08:25 | PN- Housestaff ---
MARIN CHEN 09/20/16 0825: Subjective Follow-up For: Acute on chronic renal failure Subjective: Patient examined. He looks tired today. He states he couldn't sleep well as he had to wakeup to pass urine several times during the night. His creatinine is stable at 4.5, if nephrology is okay, plan is for the removal of Tal cath today with the discharge to home later. Patient will follow up with psych as an outpatient he has no new complaints. His labs and vitals remained stable. Review of Systems Constitutional: Reports: see HPI. Objective Last 24 Hrs of Vital Signs/I&O Vital Signs Date Time Temp Pulse Resp B/P Pulse O2 O2 Flow FiO2 Ox Delivery Rate 09/20 06 97.9 68 20 140/66 92 Room Air 09/19 2150 97.7 71 20 150/72 92 09/19 213 73 140/60 09/19 2138 73 140/60 09/19 1437 98.0 68 20 160/72 92 09/19 0929 160/80 09/19 0928 160/80 Intake & Output 09/20 1600 09/20 0800 09/20 0000 Intake Total 850 450 Output Total 200 550 300 Balance -200 300 150 Intake, Oral 850 450 Output, Urine 200 550 300 Physical Exam General Appearance: Alert, Oriented X3, Cooperative, No Acute Distress Skin: No Rashes HEENT: Atraumatic Neck: Supple Cardiovascular: Normal S1, Normal S2, No Murmurs Lungs: Clear to Auscultation, Normal Air Movement Abdomen: Soft, No Tenderness, No Hepatospenomegaly Extremities: No Edema, Normal Pulses Current Medications: Current Medications Sig/Tiffanie Start time Last Medication Dose Route Stop Time Status Admin Acetaminophen 650 MG .STK-MED ONE 09/19 2132 DC PO 09/19 2133 Acetaminophen 1,000 MG Q6P PRN 09/14 2214 AC N/A 1 UNIT IV Acetaminophen 650 MG Q6P PRN 08/30 0015 AC 09/19 PO 2138 Amlodipine Besylate 10 MG DAILY 08/30 1000 AC 09/19 PO 928 Atorvastatin Calcium 20 MG DAILY 08/30 1000 AC 09/19 PO 928 Cholecalciferol 1,000 IU DAILY 08/30 1000 AC 09/19 PO 927 Epoetin Earnest 3,000 UNIT MoWeFr PRN 03/10 0915 AC IV Epoetin Earnest 2,000 UNIT MoWeFr PRN 09/09 0915 AC IV Erythromycin 1 ANI AT BEDTIME 08/30 2200 AC 09/19 OPH 2138 Ezetimibe 10 MG DAILY 08/30 1000 AC 09/19 PO 0928 Heparin Sodium 5,000 UNIT Q8 08/30 0600 AC 09/20 (Porcine) SC 0555 Hydralazine HCl 100 MG BID 08/30 1000 AC 09/19 PO 213 Isosorbide 60 MG DAILY 08/30 1000 AC 09/19 Mononitrate PO 0929 Labetalol HCl 300 MG BID 08/30 1000 AC 09/19 PO 2138 Levothyroxine Sodium 0.05 MG DAILY AC 08/30 0700 AC 09/20 PO 0554 Lidocaine 1 PAT DAILY PRN 09/17 1200 AC 09/17 EXT 1243 Methyl Salicylate 1 ANI Q3P PRN 09/16 1700 AC 09/16 TOP 2134 Patient Medication 1 ED .[facility]-MED ONE 09/19 1338 [place] Teaching ED 09/19 1339 Patient Own 1 UNIT Q8P PRN 08/30 0115 AC 09/13 Medication TOP 1649 Last 24 Hrs of Lab/Jamel Results Last 24 Hrs of Labs/Mics: Laboratory Tests 09/20/16 0610: Anion Gap 11, Estimated GFR 13 L, BUN/Creatinine Ratio 9.8 Assessment/Plan Assessment: Patient is a 86 y/o M with PMH HTN, HLD, CAD S/P CABG, hypothyroidism, CK D, anemia, GI bleed, history of colon cancer S/P resection, HFpEF, chronic pain on pain stimulator, ROBYN not on CPAP, on nighttime oxygen was admitted for worsening creatinine levels in his recent blood work. He was also being treated for balance issues and hallucinations by his PCP. Problem list 1. 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 Aspiration pneumonia 3. Hypertension 4 . postherpetic neuralgia 5. Hematuria 6. Coronary artery disease 7. Urinary retention- still having Mims catheter 8. Suicidal ideation Plan Acute kidney disease in chronic kidney disease unsure if it is progressing to end-stage renal disease His creatine remained stable at 4.5, he was evaluated by professor of criminal justice. The plan is that if nephrology is okay, we will remove the Tal cath today and discharge to home later. Continue to avoid nephrotoxic medications such as NSAIDs Nephrology consult service on board and appreciate the recommendations B/L lE pain Lidoderm patch was added Hematuria/ resolved Was probably due to Mims insertion. Mims has been removed on 09/19/16 Possible aspiration pneumonia currently on RA Chest x-ray shows elevation of left hemidiaphragm with left basilar volume loss and possible consolidation Patient has no leukocytosis and is afebrile He is off antibiotics If he spikes fever can panculture and start antibiotics Hypertension Continue labetalol, hydralazine and amlodipine Continue to Lasix as above Postherpetic neuralgia Patient on Lyrica for pain control Hallucinations Patient had some hallucinations previously which have now resolved Diet - Heart healthy Diet DVT prophylaxis-ALP S/heparin Code Status -Full Code Problem List: 1. Renal failure Pain Ratin Pain Location: n/a Pain Goal: Pain 4 or less Pain Plan: tylenol prn for pain Tomorrow's Labs & Rationales: none CLME BAIN,KRYSTYNA 09/20/16 1141: Attending MD Review Statement Attending Statement Attending MD Statement: examined this patient, discuss w/resident/PA/TV PRODUCTION ASSISTANT, agreed w/resident/PA/TV PRODUCTION ASSISTANT, reviewed EMR data (avail), discussed with nursing, discussed with case mgmt, amended to note Attending Assessment/Plan: Patient seen and examined. Sitting up comfortably in his chair and not in any distress. No issues overnight reported by nursing staff. He remains off oxygen supplementation. Lungs are clear to auscultation bilaterally. He has no jugular venous distention. He has no peripheral edema. He is voiding adequately and put out 135 0 mL of urine yesterday. His GFR has been stable over the past 3 days. Case was discussed with the nephrology service. Recommendations are to remove the Tal catheter and discharge the patient home today. He is to follow-up with his professor of criminal justice as an outpatient for monitoring of his renal function and evaluation for AV fistula creation.
--- NOTE | 2016-09-20 10:49 | PN- Nephrology ---
Assessment/Plan Assessment: 1. GURPREET: ? etiology --> presumed ATN - improved & w/o additional HD need @ present time 2. CKD: severe, stage 4 @ baseline Suggestion: 1. D/C HD cath 2. OK for d/c w outpt f/u re AVF creation Subjective Subjective: No SOB - no uremic sx Remians nonoliguric Objective Vital Signs and I&Os Vital Signs Date Time Temp Pulse Resp B/P Pulse O2 O2 Flow FiO2 Ox Delivery Rate 09/20 0628 97.9 68 20 140/66 92 Room Air 09/19 2150 97.7 71 20 150/72 92 09/19 213 73 140/60 09/19 213 73 140/60 09/19 1437 98.0 68 20 160/72 92 Intake & Output 09/20 1600 09/20 0400 09/19 1600 09/19 0400 09/18 1600 09/18 0400 Intake Total 850 450 615 661 7480 480 Output Total 135 679 1197 250 700 300 Balance 100 150 -550 -150 580 180 Intake, IV 0 Intake, Oral 850 450 484 955 7712 480 Number 2 Bowel Movements Output, Urine 640 751 8369 250 700 300 Patient 230 lb 230 lb Weight Physical Exam General Appearance: well developed/nourished, no apparent distress, alert Head: atraumatic, normal appearance Ears, Nose, Throat: normal ENT inspection Neck: normal inspection, R IJ HD cath Respiratory: normal breath sounds, no respiratory distress, lungs clear Cardiovascular: regular rate/rhythm, friction rub (none) Abdomen: soft, non-tender, no organomegaly Extremities: swelling (trace) Neurologic/Psychiatric: no motor/sensory deficits, awake, alert, 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 as tested Skin: intact, normal color Lymphatic: no anterior cervical noble Current Medications: Current Medications Sig/Tiffanie Start time Last Medication Dose Route Stop Time Status Admin Acetaminophen 650 MG .STK-MED ONE 09/19 2132 DC PO 09/19 2133 Acetaminophen 1,000 MG Q6P PRN 09/14 2214 AC N/A 1 UNIT IV Acetaminophen 650 MG Q6P PRN 08/30 0015 AC 09/19 PO 2138 Amlodipine Besylate 10 MG DAILY 08/30 1000 AC 09/19 PO 928 Atorvastatin Calcium 20 MG DAILY 08/30 1000 AC 09/19 PO 928 Cholecalciferol 1,000 IU DAILY 08/30 1000 AC 09/19 PO 0928 Epoetin Earnest 3,000 UNIT MoWeFr PRN 09/09 09 AC IV Epoetin Earnest 2,000 UNIT MoWeFr PRN 09/09 914 AC IV Erythromycin 1 ANI AT BEDTIME 08/30 2200 AC 09/19 OPH 2138 Ezetimibe 10 MG DAILY 08/30 1000 AC 09/19 PO 0928 Heparin Sodium 5,000 UNIT Q8 08/30 0600 AC 09/20 (Porcine) SC 0555 Hydralazine HCl 100 MG BID 08/30 1000 AC 09/19 PO 2138 Isosorbide 60 MG DAILY 08/30 1000 AC 09/19 Mononitrate PO 0929 Labetalol HCl 300 MG BID 08/30 1000 AC 09/19 PO 213 Levothyroxine Sodium 0.05 MG DAILY AC 08/30 0700 AC 09/20 PO 0554 Lidocaine 1 PAT DAILY PRN 09/17 1200 AC 09/17 EXT 1243 Methyl Salicylate 1 ANI Q3P PRN 09/16 1700 AC 09/16 TOP 2134 Patient Medication 1 ED .STK-MED ONE 09/19 1338 NM Teaching ED 09/19 1339 Patient Own 1 UNIT Q8P PRN 08/30 0115 AC 09/13 Medication TOP 1649 Results Pertinent Lab Results: Laboratory Tests 09/20 09/19 09/18 0610 0732 0659 Chemistry Sodium (137 - 145 mmol/L) 136 L 137 136 L Potassium (3.5 - 5.1 mmol/L) 3.9 3.9 3.5 Chloride (98 - 107 mmol/L) 102 102 101 Carbon Dioxide (22 - 30 mmol/L) 23 23 23 Anion Gap (5 - 16) 11 12 12 BUN (9 - 20 mg/dL) 44 H 40 H 40 H Creatinine (0.7 - 1.2 mg/dL) 4.5 H 4.6 H 4.7 H Estimated GFR (>60 ml/min) 13 L 12 L 12 L BUN/Creatinine Ratio (7 - 25 %) 9.8 8.7 8.5 Hematology CBC w Diff NO MAN DIFF REQ WBC (4.8 - 10.8 /CUMM) 4.5 L RBC (4.70 - 6.10 /CUMM) 3.19 L Hgb (14.0 - 18.0 G/DL) 9.4 L Hct (42 - 52 %) 28.4 L MCV (80.0 - 94.0 FL) 89.0 MCH (27.0 - 31.0 PG) 29.3 RDW (11.5 - 14.5 %) 14.3 Plt Count (130 - 400 /CUMM) 251 MPV (7.4 - 10.4 FL) 7.2 L Gran % (42.2 - 75.2 %) 72.0 Lymphocytes % (20.5 - 51.1 %) 11.6 L Monocytes % (1.7 - 9.3 %) 12.0 H Eosinophils % (0 - 5 %) 4.2 Basophils % (0.0 - 2.0 %) 0.2 Absolute Granulocytes (1.4 - 6.5 /CUMM) 3.2 Absolute Lymphocytes (1.2 - 3.4 /CUMM) 0.5 L Absolute Monocytes (0.10 - 0.60 /CUMM) 0.5 Absolute Eosinophils (0.0 - 0.7 /CUMM) 0.2 Absolute Basophils (0.0 - 0.2 /CUMM) 0 PUBS MCHC (33.0 - 37.0 G/DL) 33.0
[2016-09-20 14:35] VITALS: BP 122/70
--- NOTE | 2016-09-20 16:08 | INTERVENTIONAL RADIOLOGY RPT ---
CLINICAL HISTORY: This patient is a 86-year-old male with chronic kidney disease requiring hemodialysis, who requires removal of a tunneled dialysis catheter as the catheter is no longer needed. PROCEDURES: 1. Removal of central venous catheter. PHYSICIANS: Dr. River Thomas (attending). The attending radiologist was present during the procedure and related imaging, and reviewed the report. MEDICATIONS: None COMPLICATIONS: None. ESTIMATED BLOOD LOSS: <1 mL. SPECIMENS: None. CONTRAST: None. FLUOROSCOPY TIME: None. PROCEDURE NOTE: Informed consent was obtained from the patient prior to the procedure. During this process, the procedure and potential alternatives were explained along with the intended outcome and benefits. The risks of the procedure, including the possibility of an unsuccessful procedure, as well as the risk of not doing the procedure, were discussed. The patient was given the opportunity to ask questions regarding the procedure and appeared competent to make decisions. A signed consent form documenting this discussion was placed in the medical record. A time-out procedure was performed. The patient was placed supine on the stretcher. The catheter entry site was prepped and draped in the usual sterile fashion. The catheter was removed using traction and blunt dissection. The cuff was removed with the catheter. Direct pressure was applied at the venotomy site and along the tunnel until hemostasis was achieved. The exit site of the tunnel was covered with skin adhesive. FINDINGS: The exit site of the catheter tunnel was non- erythematous and non- tender. IMPRESSION: Successful removal of the tunneled central venous catheter in the right chest. PLAN: 1. The patient was stable after the procedure and will be transferred back to his medical room 2. The patient was instructed regarding wound care. 3. The patient is instructed to present to the emergency room or interventional radiology should the site bleed or if there are new signs of systemic or local infection. Otherwise, the patient will follow up with their primary care physician if indicated.
== END 2016-09-20 16:00 | disposition home health service (06) | DRG 682 ==
LOC: ENRESERVTM → ENRESERVDT → ERH 20:08 → 1NO 20:52 → ENPENDDIS 20:52 → 2NA 20:52 → ERHI 20:52 → 1NO 08-30 00:07 → 2NA 09-04 18:06
PROVIDERS: Internal Medicine; Internal Medicine Nephrology; Pediatrics; Radiology Diagnostic Radiology; Student in an Organized Health Care Education/Training Program; ADMIT Internal Medicine
PROC: 5A09357 Assistance with Respiratory Ventilation, Less than 24 Consecutive Hours, Continuous Positive Airway Pressure (ICD-10-PCS; 2016-08-29)
PROC: 02H633Z Insertion of Infusion Device into Right Atrium, Percutaneous Approach (ICD-10-PCS; principal; 2016-09-07)
PROC: 5A1D60Z (ICD-10-PCS; 2016-09-07)
PROC: 02PAX3Z Removal of Infusion Device from Heart, External Approach (ICD-10-PCS; 2016-09-20)
DX: N17.0 Acute kidney failure with tubular necrosis (principal); J69.0 Pneumonitis due to inhalation of food and vomit; J96.01 Acute respiratory failure with hypoxia; G93.41 Metabolic encephalopathy; I13.2 Hypertensive heart and chronic kidney disease with heart failure and with stage 5 chronic kidney disease, or end stage renal disease; E87.0 Hyperosmolality and hypernatremia; E87.5 Hyperkalemia; F05 Delirium due to known physiological condition; I50.32 Chronic diastolic (congestive) heart failure; R31.9 Hematuria, unspecified; E86.0 Dehydration; B02.29 Other postherpetic nervous system involvement; E66.2 Morbid (severe) obesity with alveolar hypoventilation; Z95.1 Presence of aortocoronary bypass graft; D63.1 Anemia in chronic kidney disease; N28.1 Cyst of kidney, acquired; I25.10 Atherosclerotic heart disease of native coronary artery without angina pectoris; E78.5 Hyperlipidemia, unspecified; E03.9 Hypothyroidism, unspecified; Z85.038 Personal history of other malignant neoplasm of large intestine; K21.9 Gastro-esophageal reflux disease without esophagitis; N18.5 Chronic kidney disease, stage 5; N40.1 Benign prostatic hyperplasia with lower urinary tract symptoms; R33.8 Other retention of urine; Z87.891 Personal history of nicotine dependence; G89.29 Other chronic pain
CPT/HCPCS: 04007; 1NP; 2NAP; 83520; 83883; 84133; 84300; 86021; 86160; ERO; 36415; 74230; 76775; 77001; 81001; 82436; 82570; 84165; 87040; 87045; 87070; 87086; 87328; 87329; 87389; 93005; 93010; 97110-GO; 97112-GO; 97116-GO; 97161-GP; 97165-GO; 97530-GO; 99232; 99233; C1752; C1769; J0131; J0885; J1644; J1940

== ENCOUNTER 2016-10-03 12:16 | Inpatient (IN) | payer OTHER, MEDICARE ==
[~2016-10-03] VITALS: Ht 190.5 cm; Wt 107.1 kg
[~2016-10-03 12:16] MED LIST changes: +AMLODIPINE BESY10 M1 PO; +ATORVASTATIN CA20 M1 PO; +AUGMENTIN 500-1 EACH PO; +COLACE100 M1 PO; +ERYTHROMYCIN1 GM OPH; +FEOSOL325 MG PO; +GABA TOP; +HYDRALAZINE HC100 M1 PO; +ISOSORBIDE MONO60 M1 PO; +LABETALOL HCL300 M1 PO; +LASIX20 M1 PO; +LEVOTHYROXINE50 MCG PO; +LIDO TOP; +LYRICA75 M1 PO; +SENOKOT8.6 M2 PO; +VITAMIN D1000 UNIT PO; +ZETIA10 M1 PO; +[UNRECOGNIZED DRUG - OTHER] TOP
--- NOTE | 2016-10-03 12:24 | NUR ---
PT C/O CHEST PAIN AND DIFFICULTY BREATHING SINCE THIS MORNING. PT WAS ADMITTED 2 WEEKS AGO FOR SAME. ON 1.5L OF OXYGEN VIA NC AT HOME - TODAY INCREASED IT TO 4 L
--- NOTE | 2016-10-03 12:43 | NUR ---
PT TO ROOM 10 VIA STRETCHER FROM EKG ALCOVE. CHANGED INTO GOWN, PLACED ON MONITOR. IV EST. PT AWAITING PROVIDER EVAL. PT ON 4L NC, SATS 95%.
--- NOTE | 2016-10-03 12:45 | NUR ---
LABS SENT. LAV,SST,BLUE,OLIVAREZ.
--- NOTE | 2016-10-03 12:50 | ED GENERAL ADULT ---
History of Present Illness General Chief Complaint: Dyspnea (COPD, CHF, Other) Stated Complaint: SOB Vital Signs & Intake/Output Vital Signs & Intake/Output Vital Signs Date Time Temp Pulse Resp B/P Pulse O2 O2 Flow FiO2 Ox Delivery Rate 10/03 1225 96.0 72 22 157/77 91 Nasal 4.0L Cannula Allergies Coded Allergies: NO KNOWN ALLERGIES (09/28/15) Reconcile Medications Amlodipine Besylate 10 MG TABLET 1 TAB PO DAILY BP (Reported) Atorvastatin Calcium 20 MG TABLET 1 TAB PO DAILY CHOLESTEROL (Reported) Cholecalciferol (Vitamin D3) (Vitamin D) 1,000 UNIT TABLET 1 TAB PO DAILY SUPPLEMENT (Reported) Docusate Sodium (Colace) 100 MG CAPSULE 1 CAP PO BID STOOL SOFTENER (Reported ) Epoetin Earnest (Procrit) 20,000 UNIT/1 ML VIAL 30,000 U SC ONCE A WEEK ANEMIA Erythromycin Base (Erythromycin) 5 MG/GRAM (0.5 %) OINT...G. 1 ANI OPH QHS RIGHT LOWER LID (Reported) apply 1 cm ribbon into the lower conjunctival sac Ezetimibe (Zetia) 10 MG TABLET 1 TAB PO DAILY CHOLESTEROL (Reported) Ferrous Sulfate (IRON) (Unknown Strength) TABLET 2 TAB PO BID SUPPLEMENT ( Reported) [Cheryl 10%/ Lido 5%/ A] 1 ANI TOP QPM NERVE PAIN -LEFT SIDE UNDER AR (Reported) Hydralazine HCl 100 MG TABLET 1 TAB PO BID BP (Reported) Isosorbide Mononitrate (Isosorbide Mononitrate ER) 60 MG TAB.ER.24H 1 TAB PO DAILY HEART (Reported) Labetalol HCl 300 MG TABLET 1 TAB PO BID BP (Reported) Levothyroxine Sodium 50 MCG TABLET 1 TAB PO DAILY THYROID (Reported) Omeprazole 20 MG CAPSULE.DR 40 MG PO BID gi bleed Pregabalin (Lyrica) 75 MG CAPSULE 1 CAP PO QPM NERVE PAIN (Reported) Sennosides (Senokot) 8.6 MG TABLET 1 TAB PO DAILY GI (Reported) Triage Note: PT C/O CHEST PAIN AND DIFFICULTY BREATHING SINCE THIS MORNING. PT WAS ADMITTED 2 WEEKS AGO FOR SAME. 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 FATHER, , Age 70; Cause: Myocardial infarction. Relation not specified for: colon cancer in mother Progress Plan of Care: Orders Procedure Date/time Status COMPREHENSIVE METABOLIC PANEL 10/03 1243 Active CBC WITHOUT DIFFERENTIAL 10/03 1243 Active EKG 10/03 1217 Active Laboratory Tests 10/03/16 1245: Sodium Pending, Potassium Pending, Chloride Pending, Carbon Dioxide Pending, Anion Gap Pending, BUN Pending, Creatinine Pending, BUN/Creatinine Ratio Pending , Glucose Pending, Calcium Pending, Total Bilirubin Pending, AST Pending, ALT Pending, Alkaline Phosphatase Pending, Total Protein Pending, Albumin Pending, Globulin Pending, Albumin/Globulin Ratio Pending, CBC w Diff Pending, WBC Pending, RBC Pending, Hgb Pending, Hct Pending, MCV Pending, MCH Pending, RDW Pending, Plt Count Pending, MPV Pending, PUBS MCHC Pending Departure Departure Condition: Stable Referrals: TAI OSMAN APRN (PCP/Family) Departure Forms: Customer Survey General Discharge Information
--- NOTE | 2016-10-03 12:53 | NUR ---
CLAYTON PATRICIA IN FOR EVAL.
[2016-10-03 13:04] LABS: ABSOLUTE BASOPHIL COUNT 0 /CUMM (0.0-0.2); ABSOLUTE EOSINOPHIL COUNT 0.1 /CUMM (0.0-0.7); ABSOLUTE GRANULOCYTE CT 3.2 /CUMM (1.4-6.5); ABSOLUTE LYMPH COUNT 0.3 /CUMM (1.2-3.4); ABSOLUTE MONOCYTE COUNT 0.3 /CUMM (0.10-0.60); BASOPHIL % 0.4 % (0.0-2.0); EOSINOPHIL % 2.1 % (0-5); GRANULOCYTE % 81.3 % (42.2-75.2); HEMATOCRIT 25.8 % (42-52); MEAN CORPUSCULAR HGB 29.2 PG (27.0-31.0); MEAN CORPUSCULAR HGB CONC 32.8 G/DL (33.0-37.0); MEAN PLATELET VOLUME 7.1 FL (7.4-10.4); PLATELET COUNT 136 /CUMM (130-400); RBC DISTRIBUTION WIDTH 15.9 % (11.5-14.5)
--- NOTE | 2016-10-03 13:09 | ED DYSPNEA/ASTHMA COMPLAINT ---
History of Present Illness General Chief Complaint: Dyspnea (COPD, CHF, Other) Stated Complaint: SOB Source: patient, old records Exam Limitations: no limitations Vital Signs & Intake/Output Vital Signs & Intake/Output Vital Signs Date Time Temp Pulse Resp B/P Pulse O2 O2 Flow FiO2 Ox Delivery Rate 10/03 1800 97.6 96 24 162/74 96 Non 4.0L ReBreather 10/03 1700 94 Nasal 4.0L Cannula 10/03 1700 97 Nasal 4.0L Cannula 10/03 1628 97.8 63 20 168/80 95 Nasal 4.5L Cannula 10/03 1553 97.6 67 19 162/74 96 Room Air 10/03 1408 97.0 70 20 130/70 96 Nasal 4.0L Cannula 10/03 1245 96 Nasal 4.0L Cannula 10/03 1225 96.0 72 22 157/77 91 Nasal 4.0L Cannula Allergies Coded Allergies: NO KNOWN ALLERGIES (09/28/15) Reconcile Medications Amlodipine Besylate 10 MG TABLET 1 TAB PO DAILY BP (Reported) Atorvastatin Calcium 20 MG TABLET 1 TAB PO DAILY CHOLESTEROL (Reported) Cholecalciferol (Vitamin D3) (Vitamin D) 1,000 UNIT TABLET 1 TAB PO DAILY SUPPLEMENT (Reported) Docusate Sodium (Colace) 100 MG CAPSULE 1 CAP PO BID STOOL SOFTENER (Reported ) Epoetin Earnest (Procrit) 20,000 UNIT/1 ML VIAL 30,000 U SC ONCE A WEEK ANEMIA Ezetimibe (Zetia) 10 MG TABLET 1 TAB PO DAILY CHOLESTEROL (Reported) Ferrous Sulfate (IRON) (Unknown Strength) TABLET 2 TAB PO BID SUPPLEMENT ( Reported) Hydralazine HCl 100 MG TABLET 1 TAB PO BID BP (Reported) Isosorbide Mononitrate (Isosorbide Mononitrate ER) 60 MG TAB.ER.24H 1 TAB PO DAILY HEART (Reported) Labetalol HCl 300 MG TABLET 1 TAB PO BID BP (Reported) Levothyroxine Sodium 50 MCG TABLET 1 TAB PO DAILY THYROID (Reported) Sennosides (Senokot) 8.6 MG TABLET 1 TAB PO DAILY GI (Reported) Triage Note: PT C/O CHEST PAIN AND DIFFICULTY BREATHING SINCE THIS MORNING. PT WAS ADMITTED 2 WEEKS AGO FOR SAME. ON 1.5L OF OXYGEN VIA NC AT HOME - TODAY INCREASED IT TO 4 L Triage Nurses Notes Reviewed? yes Onset: Abrupt Duration: week(s): (1), constant Timing: recent history Severity: moderate, severe Activities at Onset: activity Prior Episodes/Possible Cause: frequent episodes Modifying Factors: Improves With: rest. Worsens With: movement. Associated Symptoms: chest pain, weakness HPI: 86-year-old male with history of CHF, HTN, HLD, CAD S/P CABG, hypothyroidism, CKD, anemia- on epogen, GI bleed, history of colon cancer S/P resection presents to ER for evaluation with his complaining of progressively worsening shortness of breath worse with exertion over the past 1 week. Patient was recently here 1 month ago for acute on chronic renal insufficiency. He was weaned off his oxygen however over the past week he has needed to go back on it most recently has gone up to 4 L. He is on at baseline. He denies cough fever chills. Patient denies chest pain or pain. Symptoms are worse with any sort of exertion. He also is complaining of bilateral leg swelling and a 6 pound weight gain over the past week. Patient is seen by Dr. Cross nephrology, Dr. roman montez, dr rooney cardiology. He is not on any diuretics currently due to his renal insufficiency. reports to 6lb weight gain x 1 week, decreased urine output (MAR JOVEL) Past History Travel History Traveled to [place] past 21 day No Medical History Any Pertinent Medical History? 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 FATHER, , Age 70; Cause: Myocardial infarction. Relation not specified for: colon cancer in mother Hx Contributory? No (MAR JOVEL) Review of Systems Review of Systems Constitutional: Reports: see HPI. All Other Systems: Reviewed and Negative Comments Review of systems: See HPI, All other systems negative. Constitutional, no chills no fever, malaise HEENT: no sore throat no congestion, no ear pain Cardiovascular: chest pain , no palpitation Skin no rashes, no change in skin Respiratory: dyspnea no cough no sputum GI: No nausea no vomiting, no diarrhea : No dysuria Muscle skeletal: No joint pain, no joint swelling, no back pain, no neck pain, Neurologic: No numbness no headache Psych: No stress Heme/endocrine: No bruising no bleeding Immunology: No lymphadenopathy (MAR JOVEL) Physical Exam Physical Exam General Appearance: well developed/nourished, alert Respiratory: normal breath sounds Comments: Well-developed well-nourished person in no acute distress HEENT: Normal EENT exam; PERRL, EOMI, . HEAD is atraumatic. moist mucous membranes. Neck: Supple, normal range of motion without pain or tenderness Back: Nontender. Full range of motion Cardiovascular: Regular rate and rhythms no murmurs rubs Respiratory: Chest nontender.There were no bony deformities, no asymmetry. mild respiratory distress. Patient speaking in full complete sentences. Breath sounds clear to auscultation bilaterally: NO W/R/R Abdomen: Soft, nontender distended, no appreciable organomegaly. Normal bowel sounds. No rebound/guarding Extremity: 3+ edema, full range of motion of extremities, normal and equal pulses bilaterally, 5 out of 5 strength noted to bilateral upper and lower extremities Neuro: Alert oriented x3, motor sensory normal There were no obvious focal neurologic abnormalities. Skin: No appreciable rash on exposed skin, skin is warm and dry. Psych: Mood and affect is normal, memory and judgment is normal. Core Measures ACS in differential dx? Yes Severe Sepsis Present: No Septic Shock Present: No (MAR JOVEL) Progress Differential Diagnosis: asthma, AMI, bronchitis, costochondritis, CHF, COPD, musculoskeletal pain, pericarditis, pulmonary embolism, pneumonia, unstable angina Plan of Care: Orders Procedure Date/time Status CBC WITHOUT DIFFERENTIAL 10/04 0600 Active BASIC ELECTROLYTES PLUS BUN&CR 10/04 0600 Active Heart Healthy Diet 10/03 L Complete Heart Healthy Diet 10/03 D Active Vital Signs 10/04 2043 Complete Teach/Educate 10/04 2043 Active Pain Treatment and Response 10/04 2043 Active Nutritional Intake, Monitor 10/04 2043 Active Isolation 10/04 2043 Complete Intake & Output 10/04 2043 Complete Patient Care Conference 10/04 2043 Active Activity/Ambulation 10/04 2043 Active Pathway - chart 10/03 1903 Active TROPONIN LEVEL 10/03 1900 Complete EKG 10/03 1900 Active URINE CREATININE, SPOT 10/03 1659 Active URINE LYTES, SPOT 10/03 1659 Active URINALYSIS 10/03 1659 Active Pathway - chart 10/03 1530 Active House Staff 10/03 1530 Active Patient Data 10/03 1530 Active Admit to inpatient 10/03 1435 Active Vital Signs 10/03 1435 Active Code Status 10/03 1435 Active Lab Add-on Test 10/03 1427 Active Lab Add-on Test 10/03 1425 Active Patient Data 10/03 1402 Active Add-on Test (ER Only) 10/03 1305 Active Telemetry/Distresser 10/03 1305 Active TROPONIN LEVEL 10/03 1245 Complete TOTAL IRON BINDING CAPACITY 10/03 1245 Complete PARTIAL THROMBOPLASTIN TIME 10/03 1245 Complete PROTHROMBIN TIME 10/03 1245 Complete PHOSPHORUS 10/03 1245 Complete MAGNESIUM 10/03 1245 Complete FERRITIN 10/03 1245 Complete SERUM IRON 10/03 1245 Complete B-TYPE NATRIURETIC PEP (BNP) 10/03 1245 Complete Intake & Output 10/03 1244 Active COMPREHENSIVE METABOLIC PANEL 10/03 1243 Complete CBC WITHOUT DIFFERENTIAL 10/03 1243 Complete EKG 10/03 1217 Active Current Medications Sig/Tiffanie Start time Last Medication Dose Stop Time Status Admin Atorvastatin Calcium 20 MG 1700 10/04 1700 AC (Lipitor) Amlodipine Besylate 10 MG DAILY 10/04 1000 AC (Norvasc) Cholecalciferol 1,000 IU DAILY 10/04 1000 AC (Vitamin D) Ezetimibe 10 MG DAILY 10/04 1000 AC (Zetia) Isosorbide 60 MG DAILY 10/04 1000 AC Mononitrate (Imdur) Levothyroxine Sodium 0.05 MG DAILY AC 10/04 0700 AC (Synthroid) Docusate Sodium 100 MG BID 10/03 2199 AC (Colace) Ferrous Sulfate 325 MG BID 10/03 2199 AC (Feosol) Hydralazine HCl 100 MG BID 10/03 2199 AC (Apresoline) Labetalol HCl 300 MG BID 10/03 2199 AC (Trandate) Polyethylene Glycol 17 GM AT BEDTIME 10/03 2199 AC (Miralax) Docusate Sodium 100 MG BID PRN 10/03 1914 AC (Colace) Hydromorphone HCl 0.5 MG Q6P PRN 10/03 1914 AC (Dilaudid) Acetaminophen 650 MG Q6P PRN 10/03 1899 AC (Tylenol) Acetaminophen/ 1 TAB Q6P PRN 10/03 1899 AC Hydrocodone Bitart (Vicodin) Laboratory Tests 10/03/161914: Troponin I < 0.01 10/03/165: Anion Gap 10, Estimated GFR 14 L, BUN/Creatinine Ratio 11.3, Glucose 107 H, Calcium 9.1, Phosphorus 4.5, Magnesium 1.9, Iron 54, TIBC 296, Ferritin 40.4, Total Bilirubin 0.8, AST 21, ALT 32, Alkaline Phosphatase 43, Troponin I 0.01, Bnh-O-Wrscuubmtda Pept 9680 H, Total Protein 6.6, Albumin 4.0, Globulin 2.6, Albumin/Globulin Ratio 1.5, PT 12.0, INR 1.14, APTT 34, CBC w Diff NO MAN DIFF REQ, RBC 2.90 L, MCV 89.0, MCH 29.2, RDW 15.9 H, MPV 7.1 L, Gran % 81.3 H, Lymphocytes % 8.8 L, Monocytes % 7.4, Eosinophils % 2.1, Basophils % 0.4, Absolute Granulocytes 3.2, Absolute Lymphocytes 0.3 L, Absolute Monocytes 0.3, Absolute Eosinophils 0.1, Absolute Basophils 0, PUBS MCHC 32.8 L Labs ordered old records reviewed- pt 95-96% on 4L Case discussed with Dr. coreas who eval the pt and agrees with plan I discussed the patient and his family at length all of his lab results cr a 4.0 is at baseline as is the H&H. Patient denies any black or bloody stools d/w dr nichols will admit (MAR JOVEL) Diagnostic Imaging: Viewed by Me: Radiology Read. Discussed w/RAD: Radiology Read. Radiology Impression: PATIENT: IRIS DREW SR PRESENT AGE: 86 PATIENT ACCOUNT NO: [id number] : 31 LOCATION: [facility] ORDERING PHYSICIAN: MAR ARNOLD SERVICE DATE: 10/03/16-5780 EXAM TYPE: RAD - XRY-PORTABLE CHEST XRAY EXAMINATION: XR PORTABLE CHEST CLINICAL INFORMATION: Dyspnea, chest pain. Presumptive diagnosis: CHF. COMPARISON: Portable chest 09/09/2016. CT of the chest 08/22/2016. TECHNIQUE: Portable AP semierect view of the chest was obtained. FINDINGS: There is persistent marked elevation of the left hemidiaphragm. There is probable associated mild left base atelectasis. The heart is mostly obscured. There is no definite congestion, edema, or focal consolidation. Sternal wires are intact. IMPRESSION: Stable marked elevation of the left hemidiaphragm with probable mild left base atelectasis. Otherwise, no acute cardiopulmonary process. DICTATED BY: FREDDY MADRIGAL MD DATE/TIME DICTATED:10/03/161330 DENTAL HYGIENE INSTRUCTOR:ROBERT DATE/ TIME TRANSCRIBED:10/03/161330 CONFIDENTIAL, DO NOT COPY WITHOUT APPROPRIATE AUTHORIZATION. <Electronically signed in Other Vendor System> SIGNED BY: FREDDY MADRIGAL MD 10/03/16 1344 Initial ED EKG: normal sinus at 70, nonspecific ST segment changes and normal axis Prior EKG: unchanged (08/2016) Rhythm Strip: normal sinus rhythm (MAR JOVEL) Departure Departure Time of Disposition: 1357 Disposition: HOME OR SELF CARE Condition: Stable Clinical Impression Primary Impression: Acute exacerbation of CHF (congestive heart failure) Secondary Impressions: Chronic renal insufficiency Referrals: TAI OSMAN APRN (PCP/Family) Departure Forms: Customer Survey General Discharge Information Admission Note Spoke With: TRACY LARRY MD Documentation of Exam: Documentation of any treatments & extenuating circumstances including Concerns Regarding Discharge (functional status, medication knowledge or non-compliance, living conditions, etc.) that warrant an admission rather than observation: IV DIURESIS, TREND LABS AND CREATINE, PULM/CARDIO/RENAL CONSULT, patient has had 2 recently increased his oxygen at home bring Edson discharge her to be medically harmful (MAR JOVEL) PA/EARLY CHILDHOOD ASSOCIATE Co-Sign Statement Statement: ED Attending supervision documentation- [X] I saw and evaluated the patient. I have also reviewed all the pertinent lab results and diagnostic results. I agree with the findings and the plan of care as documented in the PA's/EARLY CHILDHOOD ASSOCIATE's documentation. [] I have reviewed the ED Record and agree with the PA's/EARLY CHILDHOOD ASSOCIATE's documentation. [] Additions or exceptions (if any) to the PAs/EARLY CHILDHOOD ASSOCIATE's note and plan are summarized below: [] (KRZYSZTOF CORESA DO) Critical Care Note Critical Care Note Critical Care Time: non-applicable (MAR JOVEL)
--- NOTE | 2016-10-03 13:40 | NUR ---
[facility] PATRICIA IN TO REVIEW POC. ANTICIPATE ADMISSION.
--- NOTE | 2016-10-03 13:44 | RADIOLOGY REPORT ---
EXAMINATION: XR PORTABLE CHEST CLINICAL INFORMATION: Dyspnea, chest pain. Presumptive diagnosis: CHF. COMPARISON: Portable chest 09/09/2016. CT of the chest 08/22/2016. TECHNIQUE: Portable AP semierect view of the chest was obtained. FINDINGS: There is persistent marked elevation of the left hemidiaphragm. There is probable associated mild left base atelectasis. The heart is mostly obscured. There is no definite congestion, edema, or focal consolidation. Sternal wires are intact. IMPRESSION: Stable marked elevation of the left hemidiaphragm with probable mild left base atelectasis. Otherwise, no acute cardiopulmonary process.
[2016-10-03 14:00] LABS: PTT 34 SEC (25-37)
--- NOTE | 2016-10-03 14:13 | History & Physical ---
See Addendum HE BAIN,ENRIQUE 10/03/16 1404: General Information and HPI MD Statement: I have seen and personally examined IRIS MARTINEZ SR and documented this H&P. The patient is a 86 year old M who presented with a patient stated chief complaint of []. Source of Information: patient, family, old records Exam Limitations: no limitations History of Present Illness: Patient is an 86-year-old male is significant past medical history of hypertension, hyperlipidemia, CAD s/p CABG,HFpEF, hypothyroidism, chronic kidney disease, chronic anemia, history of colon cancer s/p colon resection, chronic pain syndrome on nerve stimulator, ROBYN, on 1.5 liters oxygen not on CPAP, history of recent admission for CHF presented with chief complaints of chest pain and difficulty in breathing since morning. Patient was Recently admitted for acute on chronic kidney disease, and aspiration pneumonia. He was treated for 4 or 5 cycles of dialysis and was advised to follow-up with tower excavator operator for further decision regarding AV fistula. He was sent off oxygen at home. He was well until a week ago. Then he started having shortness of breath even with a small exertion and his SPO2 is started trending down to 83%. He tried oxygen by nasal cannula. Yesterday, his oxygen requirement increased to 4 liters with SpO2 of 90% and than his nurse at home advised him to come to [place] [facility]. During last 4 days, he also gained weight around 6Lb. He is also complaining of burning pain on the left side of the back of the chest. He denies any headache, confusion, cough, runny nose, decreased appetite, dysuria, foul-smelling urine, hematuria. Personal history -he quit smoking 40 years ago Allergies -no known drug allergies Family history-brother - diabetes and Parkinsons, grandfather - diabetes,Mother - cancer ? Allergies/Medications Allergies: Coded Allergies: NO KNOWN ALLERGIES (09/28/15) Home Med list Amlodipine Besylate 10 MG TABLET 0.5 TAB PO BID BP (Reported) Atorvastatin Calcium 20 MG TABLET 1 TAB PO DAILY CHOLESTEROL (Reported) Calcitriol 0.25 MCG CAPSULE 1 CAP PO AT BEDTIME KIDNEY DISEASE, HYPOCALCEMIA (Reported) Cholecalciferol (Vitamin D3) (Vitamin D) 1,000 UNIT TABLET 1 TAB PO DAILY SUPPLEMENT (Reported) Docusate Sodium (Colace) 100 MG CAPSULE 1 CAP PO BID STOOL SOFTENER (Reported ) Epoetin Earnest (Procrit) 40,000 UNIT/ML VIAL 40,000 UNIT SC Q2W ANEMIA ( Reported) Ezetimibe (Zetia) 10 MG TABLET 1 TAB PO DAILY CHOLESTEROL (Reported) Ferrous Sulfate (Feosol) 325 MG (65 MG IRON) TABLET 2 TAB PO BID ANEMIA ( Reported) Furosemide (Lasix) 80 MG TABLET 1 TAB PO AD DIURETIC (Reported) Gabapentin 300 MG CAPSULE 1 CAP PO QPM NERVE PAIN (Reported) Hydralazine HCl 100 MG TABLET 1 TAB PO BID BP (Reported) Isosorbide Mononitrate (Isosorbide Mononitrate ER) 30 MG TAB.ER.24H 90 MG PO DAILY chest pain Labetalol HCl 300 MG TABLET 1 TAB PO BID BP (Reported) Levothyroxine Sodium 50 MCG TABLET 1 TAB PO DAILY THYROID (Reported) Sennosides (Senokot) 8.6 MG TABLET 1 TAB PO DAILY GI (Reported) Past History Travel History Traveled to [place] past 21 day No Medical History Neurological: shingles- left flank EENT: NONE Cardiovascular: CAD (s/p CABG x 5), diastolic CHF, hypertension, hyperlipidemia, atrial tachycardia Respiratory: pneumonia, WEARS O2 Gastrointestinal: NONE Hepatic: NONE Renal: chronic kidney disease (stage 4) Musculoskeletal: chronic back pain (implanted stimulator device), osteoarthritis Psychiatric: NONE Endocrine: hypothyroidism Blood Disorders: ANEMIA Cancer(s): colon/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 FATHER, , Age 70; Cause: Myocardial infarction. Relation not specified for: colon cancer in mother Psychosocial History Primary Language: Latvian ETOH Use: denies use Illicit Drug Use: denies illicit drug use Living Will? yes Power of Quality Assurance Advisor/HCP? unknown Functional Ability ADLs Independent: dressing, eating, toileting, bathing. Ambulation: independent IADLs Independent: shopping, housework, finances, food prep, telephone, transportation , medication admin. Review of Systems Review of Systems Constitutional: Reports: malaise, weakness. Denies: no symptoms, chills, fever. Cardiovascular: Reports: chest pain, edema, orthopena, peripheral edema. Denies: palpitations. Respiratory: Reports: orthopnea, short of breath. Denies: cough, hemoptysis, sputum production, stridor, wheezing. GI: Reports: constipation, distention. Denies: abdominal pain, bloating, diarrhea. Genitourinary: Denies: discharge, dysuria, frequency, hematuria. Musculoskeletal: Denies: no symptoms. Skin: Reports: dryness, erythema. Neurological/Psychological: Denies: anxiety, cognitive dysfunction, confusion, dementia. Exam & Diagnostic Data Last 24 Hrs of Vital Signs/I&O Vital Signs Date Time Temp Pulse Resp B/P Pulse O2 O2 Flow FiO2 Ox Delivery Rate 10/03 1800 97.6 96 24 162/74 96 Non 4.0L ReBreather 10/03 1700 94 Nasal 4.0L Cannula 10/03 1700 97 Nasal 4.0L Cannula 10/03 1628 97.8 63 20 168/80 95 Nasal 4.5L Cannula 10/03 1553 97.6 67 19 162/74 96 Room Air 10/03 1408 97.0 70 20 130/70 96 Nasal 4.0L Cannula 10/03 1245 96 Nasal 4.0L Cannula 10/03 1225 96.0 72 22 157/77 91 Nasal 4.0L Cannula Intake & Output 10/03 1600 10/03 0800 10/03 0000 Intake Total Output Total Balance Patient 108.86 kg Weight Physical Exam General Appearance Alert, Oriented X3, Cooperative, No Acute Distress Skin No Rashes, No Breakdown, area of hypopigmentation and hyperalgesia on the left side of the back of the chest Cardiovascular Normal S1, Normal S2, murmur present Lungs decreased air entry on the left lower lobe Abdomen No Tenderness, distended Neurological Normal Speech Extremities No Clubbing, No Cyanosis, bilateral leg edema, more on the left side Vascular Normal Pulses, Pulses Symmetrical Last 24 Hrs of Labs/Jamel: Laboratory Tests 10/03/16 1915: Troponin I < 0.01 10/03/16 1245: Anion Gap 10, Estimated GFR 14 L, BUN/Creatinine Ratio 11.3, Glucose 107 H, Calcium 9.1, Phosphorus 4.5, Magnesium 1.9, Iron 54, TIBC 296, Ferritin 40.4, Total Bilirubin 0.8, AST 21, ALT 32, Alkaline Phosphatase 43, Troponin I 0.01, Yof-W-Wbqarszifxy Pept 9680 H, Total Protein 6.6, Albumin 4.0, Globulin 2.6, Albumin/Globulin Ratio 1.5, PT 12.0, INR 1.14, APTT 34, CBC w Diff NO MAN DIFF REQ, RBC 2.90 L, MCV 89.0, MCH 29.2, RDW 15.9 H, MPV 7.1 L, Gran % 81.3 H, Lymphocytes % 8.8 L, Monocytes % 7.4, Eosinophils % 2.1, Basophils % 0.4, Absolute Granulocytes 3.2, Absolute Lymphocytes 0.3 L, Absolute Monocytes 0.3, Absolute Eosinophils 0.1, Absolute Basophils 0, PUBS MCHC 32.8 L Diagnostic Data CXR Results mild elevation of left hemidiaphragm with mild left basilar atelectasis, no acute cardiopulmonary abnormality Assessment/Plan Assessment: Patient is an 86-year-old male is significant past medical history of hypertension, hyperlipidemia, CAD s/p CABG,HFpEF, hypothyroidism, chronic kidney disease, chronic anemia, history of colon cancer s/p colon resection, chronic pain syndrome on nerve stimulator, ROBYN, on 1.5 liters oxygen not on CPAP, history of recent admission for CHF presented with chief complaints of chest pain and difficulty in breathing since morning. Chest x-ray -mild elevation of left hemidiaphragm with mild left basilar atelectasis, no acute cardiopulmonary abnormality Pertinent labs -hemoglobin 8.5, creatinine -4.0, proBNP -9680, first set of troponin 0.01 Plan - Fluid overload, probably secondary to chronic kidney disease and inadequate diuresis * At the time of recent discharge. Patient was not given diuretics because of abnormal kidney function, probably that may relate to fluid overload. * He doesn't have any signs of fluid overload, although his oxygen requirement has been increased and he is having dyspnea on slight exertion and he gained 6lb * We will give him injection Lasix 40 milligrams IV 1 dose * We will also take the recommendation from tower excavator operator for possible dialysis in future * If needed we will take vascular consult for possible AV fistula CHF and pulmonary edema - * chest x-ray does not show any signs of fluid overload and pulmonary edema, ProBNP-9680 * We will admit the patient to telemetry floor * We will give him inj Lasix 40 mgs IV 1 dose * Strict intake output charting * We will do serial EKGs/troponins * We will place cardiology consult and follow the recommendation Anemia of chronic disease * Hb-8.5 * We will continue erythropoietin and discuss it tomorrow with tower excavator operator Obstructive sleep apnea - * Patient is having history of obstructive sleep apnea and not using CPAP at Nighttime * We will discussed with Dr. Currie and follow his recommendation Diet-renal diet with fluid restriction DVT prophylaxis -ALP S CODE STATUS -full code As Ranked By This Provider Problem List: 1. CKD (chronic kidney disease) 2. Acute exacerbation of CHF (congestive heart failure) 3. Chronic renal insufficiency 4. Shingles (herpes zoster) polyneuropathy Core Measures/Miscellaneous Acute Coronary Syndrome ACS Diagnosis: No Cerebrovascular Accident CVA/TIA Diagnosis: No Congestive Heart Failure CHF Diagnosis: Yes Date of most recent Echo: 09/27/15 Last Known EF %: 55 ARSENIO/ARB for EF <40%: No No ARSENIO/ARB d/t: Renal Failure/Azotemia Venous Thromboembolism VTE Risk Factors: Acute medical illness, Age > 40, Immobility, paresis, Obesity No [facility] VTE prophylaxis d/t: No contraindications No VTE Pharm Prophylaxis d/t: Renal impairment VTE Diagnosis: No VTE Type: NONE VTE Confirmed by (Test): NONE Severe Sepsis Severe Sepsis Present: No Septic Shock Septic Shock Present: No Miscellaneous Documentation Attending Case Discussed With: VÍCOTR BAIN,ROEL Abbott Primary Care Physician: TAI OSMAN APRN Patient sees these Specialists Belt Line Feeder-Dr. Currie Dope Pourer-Dr. Zack Cross Lead Android Developer-Andrea Anne Level of Patient Care: Telemetry SAMMIE MAZARIEGOS 10/03/16 1904: Resident Review Statement Resident Statement: examined this patient, discussed with marketing intern, agreed with marketing intern, discussed with family, discussed with nursing, reviewed images Other Findings: Mr. Martinez is a is an 86-year-old gentleman with significant past medical history of coronary artery disease status post 5 vessel CABG, heart failure with preserved ejection fraction [last echocardiogram September 27 showing an EF of greater than 55%], hypothyroidism, anemia secondary to chronic kidney disease, history of colon cancer status post resection in 2006], chronic back pain with multiple back surgeries status post neurostimulator, ROBYN not on CPAP who was recently discharged from [facility] in August 2016 for acute on chronic kidney failure as well as aspiration pneumonia. He was dialyzed 5 times during this admission. He presents today complaining of worsening dyspnea for the last week, and increased oxygen requirements [he is on 4 L of oxygen via nasal cannula, was on 1.5 L at home], as well as progressive bilateral lower extremity edema and a 6 pound weight gain over the last 3 days. Per the patient's and daughter were at his bedside, the patient was previously on 60 mg of by mouth Lasix daily prior to his admission in August however given his deteriorating kidney function, this Lasix dose was held. Vitals on admission, temperature 90.6 degrees, blood pressure 157/77, heart rate 72, respiratory rate 22, saturating 91% on 4 L of oxygen via nasal cannula. Physical exam reveals an age appropriate appearing gentleman lying comfortably in bed in mild distress and dyspneic. HEENT exam is negative, no JVD is noted. Heart exam, S1-S2 positive without any significant murmurs rubs or gallops. Lungs had decreased air entry bilaterally, no significant rales or rhonchi noted. A left healing zoster rash is noted in the T3/T4 distribution, which is tender to palpation [Patient states he was not placed on anti-viral medications given his kidney function]. Midline CABG healed incision noted. Abdomen was soft and nontender, slightly distended with normal bowel sounds. Extremities positive for +1 pitting edema bilaterally to the mid shins. No significant erythema or tenderness noted. Significant labs hemoglobin/hematocrit 8.5/25.8. White blood cell count 4.0, platelets 1:30. BUNs/creatinine 45/4.0. ProBNP 9680, first set of troponin 0.01. Chest x-ray revealed a stable elevation of his left hemidiaphragm with probable mid left base atelectasis. Problem list/assessment and plan Acute decompensated heart failure with a component of chronic kidney disease [ cardiorenal syndrome] Hypertension Hypothyroidism Anemia Constipation * We will admit the patient to telemetry as opposed to general medicine given his significant cardiac history as his renal impairment led to electrolyte imbalance previously requiring dialysis. * Given the patient's diuresis has been held due to his kidney disease, and his kidneys are not adequately producing as much urine as a normal kidney [he still does produce urine], he is most likely fluid overloaded [although he doesn't have overt signs of fluid overload, no JVD, no flank ascites]. * We will diurese with 40 mg of IV Lasix once, and reevaluate kidney function in the morning. * Nephrology consult placed and appreciated. His BUN/creatinine 45/4.0 with a measured GFR 14 mL/m which is approximately his baseline. U lytes/spot protein pending. * Creatinine clearance modified for height/weight is approximately 18 mL/min, significantly reduced. * We will reevaluate in the morning, possible HD vs HF. * We will of course avoid NSAIDs and nephrotoxins. * Continue isosorbide mononitrate 60 mg daily, amlodipine 10 mg daily, labetalol 300 mg twice a day and hydralazine 100 mg twice a day for blood pressure control. * Continue 50 g of levothyroxine daily for hypothyroidism. * We will continue erythropoietin, however may change the frequency of dosing based on nephrology's recommendation tomorrow morning. Continue iron supplementation at home dose 325 BID. Full code Heart healthy diet Heparin for DVT prophylaxis given his kidney impairment
--- NOTE | 2016-10-03 14:52 | NUR ---
HOUSESTAFF IN FOR EVAL.
--- NOTE | 2016-10-03 15:08 | NUR ---
PT ADMITTED TO ROOM 189-1
--- NOTE | 2016-10-03 15:59 | NUR ---
REPORT TO CAL NGUYEN ON .
--- NOTE | 2016-10-03 16:08 | NUR ---
PT TO FLOOR VIA STRETCHER WITH THIS RN AND TRANSPORT ON MONITOR. ALL PAPERWORK AND BELONGINGS SENT. CLINICAL STATUS UNCHANGED. AT BEDSIDE WITH PT.
[2016-10-03 16:28] VITALS: BP 168/80
--- NOTE | 2016-10-03 17:19 | Admission Certification ---
Admission Certification Certification Statement - As attending physician, I certify that at the time of - admission, based on clinical presentation, severity of - symptoms, need for further diagnostic testing and - therapeutic interventions, and risk of adverse outcomes - without in-hospital treatment, in my clinical assessment, - this patient requires an acute hospital stay for a minimum - of two nights or longer. I have also considered psychsocial - factors such as support system, advanced age, financial - issues, cognitive issues, and failed out-patient treatments, - past re-admission history, safety of patient, and lack of - compliance as applicable. Specific rationale supporting this admission is: Hypoxic respiratory failure and fluid overload.
--- NOTE | 2016-10-03 17:23 | PN- Att Addend ---
Attending MD Review Statement Attending Statement Attending MD Statement: examined this patient, discuss w/resident/PA/GRINDING SUPERVISOR, agreed w/resident/PA/GRINDING SUPERVISOR, discussed with family, reviewed EMR data (avail), discussed w/ nursing Attending Assessment/Plan: Laboratory Tests 10/03/16 1245: Anion Gap 10, Estimated GFR 14 L, BUN/Creatinine Ratio 11.3, Glucose 107 H, Calcium 9.1, Phosphorus 4.5, Magnesium 1.9, Iron 54, TIBC 296, Ferritin 40.4, Total Bilirubin 0.8, AST 21, ALT 32, Alkaline Phosphatase 43, Troponin I 0.01, Myb-S-Lagedhsgzxn Pept 9680 H, Total Protein 6.6, Albumin 4.0, Globulin 2.6, Albumin/Globulin Ratio 1.5, PT 12.0, INR 1.14, APTT 34, CBC w Diff NO MAN DIFF REQ, RBC 2.90 L, MCV 89.0, MCH 29.2, RDW 15.9 H, MPV 7.1 L, Gran % 81.3 H, Lymphocytes % 8.8 L, Monocytes % 7.4, Eosinophils % 2.1, Basophils % 0.4, Absolute Granulocytes 3.2, Absolute Lymphocytes 0.3 L, Absolute Monocytes 0.3, Absolute Eosinophils 0.1, Absolute Basophils 0, PUBS MCHC 32.8 L Vital Signs Date Time Temp Pulse Resp B/P Pulse O2 O2 Flow FiO2 Ox Delivery Rate 10/03 1628 97.8 63 20 168/80 95 Nasal 4.5L Cannula 10/03 1553 97.6 67 19 162/74 96 Room Air 10/03 1408 97.0 70 20 130/70 96 Nasal 4.0L Cannula 10/03 1245 96 Nasal 4.0L Cannula 10/03 1225 96.0 72 22 157/77 91 Nasal 4.0L Cannula Patient seen and examined at bedside. Discussed with patient as well as his at bedside the care plan. Next 86-year-old male being admitted with the shortness of breath for 1 week and leg swelling and 6 pound weight gain over the last 3 days. Patient was recently admitted and discharged on September 20 secondary to acute kidney injury on underlying CKD. Patient underwent 5 sessions of hemodialysis during the last hospitalization. Patient was discharged off Lasix and did not require any hemodialysis at discharge. We will give him 1 dose of IV Lasix today 40 mg. We'll get nephrology consult and will have the lost charge card clerk talk to Patient's outside lost charge card clerk Dr. Cross as per the patient's request. We will monitor his intake and output strictly and will put him on fluid restriction as well as on low-sodium diet. Based on his response to Lasix we will decide the further course of treatment.
[2016-10-03 18:00] VITALS: BP 162/74
[2016-10-04 00:31] VITALS: BP 134/66
[2016-10-04 08:09] LABS: ABSOLUTE BASOPHIL COUNT 0 /CUMM (0.0-0.2); ABSOLUTE EOSINOPHIL COUNT 0.1 /CUMM (0.0-0.7); ABSOLUTE GRANULOCYTE CT 2.8 /CUMM (1.4-6.5); ABSOLUTE LYMPH COUNT 0.4 /CUMM (1.2-3.4); ABSOLUTE MONOCYTE COUNT 0.3 /CUMM (0.10-0.60); BASOPHIL % 0.2 % (0.0-2.0); EOSINOPHIL % 3.5 % (0-5); GRANULOCYTE % 76.8 % (42.2-75.2); HEMATOCRIT 25.1 % (42-52); MEAN CORPUSCULAR HGB 29.4 PG (27.0-31.0); MEAN CORPUSCULAR HGB CONC 32.8 G/DL (33.0-37.0); MEAN CORPUSCULAR VOLUME 89.7 FL (80.0-94.0); MEAN PLATELET VOLUME 7.5 FL (7.4-10.4); PLATELET COUNT 128 /CUMM (130-400); RBC DISTRIBUTION WIDTH 15.1 % (11.5-14.5); WHITE BLOOD CELL COUNT 3.7 /CUMM (4.8-10.8)
[2016-10-04 08:17] VITALS: BP 140/70
--- NOTE | 2016-10-04 08:26 | PN- Housestaff ---
Subjective Follow-up For: Acute on chronic CHF Fluid overload Severe anemia Complaints: no complaints Tele-Events Since Last Visit: Normal sinus rhythm, first-degree heart block, heart rate between 70-78, WA interval 0.26 -0.28 Subjective: Patient is seen and examined at the bedside. He denies of any shortness of breath, chest pain, headache, fever, decreased urine output, pain in abdomen. Review of Systems Constitutional: Reports: weakness. Denies: fever, malaise. Cardiovascular: Reports: peripheral edema. Denies: chest pain, orthopena. Respiratory: Denies: cough, orthopnea, short of breath. Gastrointestinal: Denies: abdominal pain, bloating, constipation. Genitourinary: Denies: no symptoms. Skin: Denies: no symptoms. Objective Last 24 Hrs of Vital Signs/I&O Vital Signs Date Time Temp Pulse Resp B/P Pulse O2 O2 Flow FiO2 Ox Delivery Rate 10/04 1650 99.0 72 18 150/62 94 Nasal 4.0L Cannula 10/04 0922 74 140/70 10/04 0922 74 140/70 10/04 0921 74 140/70 10/04 0921 74 140/70 10/04 0817 98.5 74 20 140/70 95 Nasal 4.0L Cannula 10/04 0800 94 Nasal 4.0L Cannula 10/04 0031 98.3 72 20 134/66 95 Nasal 4.0L Cannula 10/04 0000 96 Nasal 4.0L Cannula 10/03 2200 80 20 149/60 10/03 2159 80 20 140/60 10/03 1800 97.6 96 24 162/74 96 Non 4.0L ReBreather Intake & Output 10/04 1600 10/04 0800 10/04 0000 Intake Total 400 200 150 Output Total 600 475 550 Balance -200 -275 -400 Intake, Oral 400 200 150 Output, Urine 600 475 550 Patient 107.104 kg Weight Physical Exam General Appearance: Alert, Oriented X3, Cooperative, No Acute Distress Skin: No Rashes, No Breakdown Cardiovascular: Normal S1, Normal S2, murmur present Lungs: bilateral basilar, pain on left side of the back of the chest Abdomen: Soft, No Tenderness, distended Neurological: Normal Speech Extremities: No Cyanosis, Normal Pulses, nonpitting edema of the leg Vascular: Normal Pulses Assessment/Plan Assessment: Patient is an 86-year-old male is significant past medical history of hypertension, hyperlipidemia, CAD s/p CABG,HFpEF, hypothyroidism, chronic kidney disease, chronic anemia, history of colon cancer s/p colon resection, chronic pain syndrome on nerve stimulator, ROBYN, on 1.5 liters oxygen not on CPAP, history of recent admission for CHF presented with chief complaints of chest pain and difficulty in breathing since morning. Chest x-ray -mild elevation of left hemidiaphragm with mild left basilar atelectasis, no acute cardiopulmonary abnormality Pertinent labs -hemoglobin 8.5, creatinine -4.0, proBNP -9680, first set of troponin 0.01 Plan - Sudden onset of severe shortness of breath under evaluation * Discussed the adjunct professor of voice. He think it doesn't seems that patient is fluid overloaded. Even his kidney function is going down, secondary to dialysis, his creatinine is rising to 4.4. We will hold the Lasix, and look for the causes of sudden onset of shortness of breath including PE. He suggested VQ scan, echocardiogram to know right atrial pressure and d-dimer. * We also discussed Dr. Currie, he suggested the right atrial pressure measurement before getting VQ scan as it can be indeterminate, as patient is having elevation of left hemidiaphragm. Chronic kidney disease * We will follow the recommendation of adjunct professor of voice * If needed we will take vascular consult for possible AV fistula CHF and pulmonary edema - * chest x-ray does not show any signs of fluid overload and pulmonary edema, ProBNP-9680 * We will admit the patient to telemetry floor * We will hold Lasix * Strict intake output charting * We will do serial EKGs/troponins were negative * We placed cardiology consult and follow the recommendation Anemia of chronic disease * Hb-8.2 * We will continue erythropoietin 15,000 units every 2 weeks * We will start patient on inj sodium ferric gluconate 125 milligrams for total 8 doses Obstructive sleep apnea - * Patient is having history of obstructive sleep apnea and not using CPAP at Nighttime * We will discussed with Dr. Currie and follow his recommendation Diet-renal diet with fluid restriction DVT prophylaxis -ALP S CODE STATUS -full code Problem List: 1. Chronic renal insufficiency 2. Acute exacerbation of CHF (congestive heart failure) 3. Shingles (herpes zoster) polyneuropathy Pain Ratin Pain Location: Left posterior part of the chest Pain Goal: Remain pain free Pain Plan: [id number] Tomorrow's Labs & Rationales: CBC to follow-up with anemia and bleeding BEP to follow up with her creatinine and electrolyte DVT/Prophylaxis: mechanical
--- NOTE | 2016-10-04 09:42 | Cons- Cardiology ---
General Information and HPI Consulting Request Date of Consult: 10/04/16 Requested By: ROEL RENEE MD Reason for Consult: CHF Source of Information: patient, old records Exam Limitations: no limitations History of Present Illness: The patient is an 86-year-old male with history of coronary disease status post coronary bypass surgery, chronic diastolic heart failure ejection fraction 55%, chronic renal insufficiency stage IV, chronic anemia, chronic pain syndrome with nerve stimulator, obstructive sleep apnea now presents with increasing shortness of breath and hypoxia. Patient was in a prison where he noted to be increasingly hypoxemic. His oxygen was increased from 2-4 L without significant improvement. He did describe shortness of breath but denies chest pain to me although that was documented in the history and physical. He also denies fever or chills. He was noted to have a 6 pound weight gain recently. Due to worsening hypoxemia he was brought to the emergency room for evaluation where he received intravenous Lasix 1. His renal insufficiency. He states he feels better today but still describes mild shortness of breath. Of note is the patient has required 4-5 cycles of dialysis recently due to acute on chronic renal insufficiency during an admission for aspiration pneumonia. Allergies/Medications Allergies: Coded Allergies: NO KNOWN ALLERGIES (09/28/15) Home Med List: Amlodipine Besylate 10 MG TABLET 1 TAB PO DAILY BP (Reported) Atorvastatin Calcium 20 MG TABLET 1 TAB PO DAILY CHOLESTEROL (Reported) Cholecalciferol (Vitamin D3) (Vitamin D) 1,000 UNIT TABLET 1 TAB PO DAILY SUPPLEMENT (Reported) Docusate Sodium (Colace) 100 MG CAPSULE 1 CAP PO BID STOOL SOFTENER (Reported ) Epoetin Earnest (Procrit) 20,000 UNIT/1 ML VIAL 30,000 U SC ONCE A WEEK ANEMIA Ezetimibe (Zetia) 10 MG TABLET 1 TAB PO DAILY CHOLESTEROL (Reported) Ferrous Sulfate (IRON) (Unknown Strength) TABLET 2 TAB PO BID SUPPLEMENT ( Reported) Hydralazine HCl 100 MG TABLET 1 TAB PO BID BP (Reported) Isosorbide Mononitrate (Isosorbide Mononitrate ER) 60 MG TAB.ER.24H 1 TAB PO DAILY HEART (Reported) Labetalol HCl 300 MG TABLET 1 TAB PO BID BP (Reported) Levothyroxine Sodium 50 MCG TABLET 1 TAB PO DAILY THYROID (Reported) Sennosides (Senokot) 8.6 MG TABLET 1 TAB PO DAILY GI (Reported) Current Medications: Current Medications Sig/Tiffanie Start time Last Medication Dose Route Stop Time Status Admin Acetaminophen 650 MG Q6P PRN 10/03 1900 AC PO Acetaminophen/ 1 TAB Q6P PRN 10/03 1900 AC Hydrocodone Bitart PO Amlodipine Besylate 10 MG DAILY 10/04 1000 AC 10/04 PO 0922 Atorvastatin Calcium 20 MG 1700 10/04 1700 AC PO Cholecalciferol 1,000 IU DAILY 10/04 1000 AC 10/04 PO 0922 Docusate Sodium 100 MG BID 10/03 2200 AC 10/04 PO 0921 Docusate Sodium 100 MG BID PRN 10/03 1915 AC PO Ezetimibe 10 MG DAILY 10/04 1000 AC 10/04 PO 0922 Ferrous Sulfate 650 MG BID 10/03 2200 DC PO Ferrous Sulfate 325 MG BID 10/03 2200 AC 10/04 PO 0922 Furosemide 40 MG ONCE ONE 10/03 1730 DC 10/03 IV 10/03 1731 1932 Heparin Sodium 0 .STK-MED ONE 10/03 1538 DC (Porcine) .ROUTE Heparin Sodium 5,000 UNIT Q8 10/03 1529 AC 10/04 (Porcine) SC 0611 Hydralazine HCl 100 MG BID 10/03 2200 AC 10/04 PO 0921 Hydromorphone HCl 0.5 MG Q6P PRN 10/03 1915 AC 10/04 IV 0109 Isosorbide 60 MG DAILY 10/04 1000 AC 10/04 Mononitrate PO 0921 Labetalol HCl 300 MG BID 10/03 2200 AC 10/04 PO 0922 Levothyroxine Sodium 0.05 MG DAILY AC 10/04 0700 AC 10/04 PO 0611 Polyethylene Glycol 17 GM AT BEDTIME 10/03 2200 AC 10/03 PO 2200 Senna/Docusate Sodium 2 TAB DAILY 10/03 1540 AC 10/04 PO 0922 Review of Systems Review of Systems: Eyes no blurred or double vision Ears no deafness or ringing Nose and throat no recurrent sinusitis Lungs per history of present illness Heart per history of present illness Abdomen no nausea vomiting Musculoskeletal occasional muscle and joint pains Psych no anxiety or depression Neuro without recurrent headache or seizures Endocrine no heat or cold intolerance Past History Travel History Traveled to [place] past 21 day No Medical History Blood Transfusion Hx: Yes Neurological: shingles- left flank EENT: NONE Cardiovascular: CAD (s/p CABG x 5), diastolic CHF, hypertension, hyperlipidemia, atrial tachycardia Respiratory: pneumonia, WEARS O2 Gastrointestinal: NONE Hepatic: NONE Renal: chronic kidney disease (stage 4) Musculoskeletal: chronic back pain (implanted stimulator device), osteoarthritis Psychiatric: NONE Endocrine: hypothyroidism Blood Disorders: ANEMIA Cancer(s): colon/rectal cancer 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 FATHER, , Age 70; Cause: Myocardial infarction. Relation not specified for: colon cancer in mother Psychosocial History Where Do You Live? Home Services at Home: Nursing, Physical Therapy Primary Language: Persian Smoking Status: Former Smoker ETOH Use: denies use Illicit Drug Use: denies illicit drug use Living Will? yes Power of Information Technology Security Manager/HCP? unknown Functional Ability ADLs Independent: dressing, eating, toileting, bathing. Ambulation: independent IADLs Independent: shopping, housework, finances, food prep, telephone, transportation , medication admin. Exam & Diagnostic Data Vital Signs and I&O Vital Signs Date Time Temp Pulse Resp B/P Pulse O2 O2 Flow FiO2 Ox Delivery Rate 10/04 0922 74 140/70 10/04 0922 74 140/70 10/04 0921 74 140/70 10/04 0921 74 140/70 10/04 0817 98.5 74 20 140/70 95 Nasal 4.0L Cannula / 0031 98.3 72 20 134/66 95 Nasal 4.0L Cannula 10/04 0000 96 Nasal 4.0L Cannula 04/ 2200 80 20 149/60 04/ 2159 80 20 140/60 04/03 1800 97.6 96 24 162/74 96 Non 4.0L ReBreather / 1700 94 Nasal 4.0L Cannula / 1700 97 Nasal 4.0L Cannula 04/ 1628 97.8 63 20 168/80 95 Nasal 4.5L Cannula 04/03 1553 97.6 67 19 162/74 96 Room Air / 1408 97.0 70 20 130/70 96 Nasal 4.0L Cannula 04/ 1245 96 Nasal 4.0L Cannula 04/ 1225 96.0 72 22 157/77 91 Nasal 4.0L Cannula Intake & Output 10/04 0810/04 0000 10/03 1600 10/03 0810/03 0000 Intake Total 200 150 Output Total 475 550 Balance -275 -400 Intake, Oral 200 150 Output, Urine 475 550 Patient 236 lb 240 lb Weight Physical Exam: Patient is a well-developed well-nourished male appearing in mild respiratory distress HEENT is unremarkable Neck is supple there is no JVD Lungs diffuse scattered rhonchi and bibasilar rales Heart regular rhythm S1 and S2 are normal no gallops or rubs 2 to 3/6 systolic ejection murmur at the right upper sternal border Abdomen bowel sounds positive Extremities trace to 1+ edema bilaterally Labs/Jamel Results: Laboratory Tests 10/04 10/03 10/03 0610 2200 1915 Chemistry Sodium (137 - 145 mmol/L) 141 Potassium (3.5 - 5.1 mmol/L) 4.5 Chloride (98 - 107 mmol/L) 106 Carbon Dioxide (22 - 30 mmol/L) 24 Anion Gap (5 - 16) 12 BUN (9 - 20 mg/dL) 44 H Creatinine (0.7 - 1.2 mg/dL) 4.4 H Estimated GFR (>60 ml/min) 13 L BUN/Creatinine Ratio (7 - 25 %) 10.0 Troponin I (<0.11 ng/ml) Cancelled < 0.01 Hematology CBC w Diff NO MAN DIFF REQ WBC (4.8 - 10.8 /CUMM) 3.7 L RBC (4.70 - 6.10 /CUMM) 2.80 L Hgb (14.0 - 18.0 G/DL) 8.2 L Hct (42 - 52 %) 25.1 L MCV (80.0 - 94.0 FL) 89.7 MCH (27.0 - 31.0 PG) 29.4 RDW (11.5 - 14.5 %) 15.1 H Plt Count (130 - 400 /CUMM) 128 L MPV (7.4 - 10.4 FL) 7.5 Gran % (42.2 - 75.2 %) 76.8 H Lymphocytes % (20.5 - 51.1 %) 10.5 L Monocytes % (1.7 - 9.3 %) 9.0 Eosinophils % (0 - 5 %) 3.5 Basophils % (0.0 - 2.0 %) 0.2 Absolute Granulocytes (1.4 - 6.5 /CUMM) 2.8 Absolute Lymphocytes (1.2 - 3.4 /CUMM) 0.4 L Absolute Monocytes (0.10 - 0.60 /CUMM) 0.3 Absolute Eosinophils (0.0 - 0.7 /CUMM) 0.1 Absolute Basophils (0.0 - 0.2 /CUMM) 0 PUBS MCHC (33.0 - 37.0 G/DL) 32.8 L 10/03 1245 Chemistry Sodium (137 - 145 mmol/L) 137 Potassium (3.5 - 5.1 mmol/L) 4.8 Chloride (98 - 107 mmol/L) 105 Carbon Dioxide (22 - 30 mmol/L) 21 L Anion Gap (5 - 16) 10 BUN (9 - 20 mg/dL) 45 H Creatinine (0.7 - 1.2 mg/dL) 4.0 H Estimated GFR (>60 ml/min) 14 L BUN/Creatinine Ratio (7 - 25 %) 11.3 Glucose (65 - 99 mg/dL) 107 H Calcium (8.4 - 10.2 mg/dL) 9.1 Phosphorus (2.5 - 4.5 mg/dL) 4.5 Magnesium (1.6 - 2.3 mg/dL) 1.9 Iron (49 - 181 ug/dL) 54 TIBC (261 - 462 ug/dL) 296 Ferritin (17.9 - 464 ng/mL) 40.4 Total Bilirubin (0.2 - 1.3 mg/dL) 0.8 AST (17 - 59 U/L) 21 ALT (21 - 72 U/L) 32 Alkaline Phosphatase (< 127 U/L) 43 Troponin I (<0.11 ng/ml) 0.01 [id number] Pept (<125 pg/mL) 9680 H Total Protein (6.3 - 8.2 g/dL) 6.6 Albumin (3.5 - 5.0 g/dL) 4.0 Globulin (1.9 - 4.2 gm/dL) 2.6 Albumin/Globulin Ratio (1.1 - 2.2 %) 1.5 Coagulation PT (9.4 - 12.5 SEC) 12.0 INR (0.90 - 1.17) 1.14 APTT (25 - 37 SEC) 34 Hematology CBC w Diff NO MAN DIFF REQ WBC (4.8 - 10.8 /CUMM) 4.0 L RBC (4.70 - 6.10 /CUMM) 2.90 L Hgb (14.0 - 18.0 G/DL) 8.5 L Hct (42 - 52 %) 25.8 L MCV (80.0 - 94.0 FL) 89.0 MCH (27.0 - 31.0 PG) 29.2 RDW (11.5 - 14.5 %) 15.9 H Plt Count (130 - 400 /CUMM) 136 MPV (7.4 - 10.4 FL) 7.1 L Gran % (42.2 - 75.2 %) 81.3 H Lymphocytes % (20.5 - 51.1 %) 8.8 L Monocytes % (1.7 - 9.3 %) 7.4 Eosinophils % (0 - 5 %) 2.1 Basophils % (0.0 - 2.0 %) 0.4 Absolute Granulocytes (1.4 - 6.5 /CUMM) 3.2 Absolute Lymphocytes (1.2 - 3.4 /CUMM) 0.3 L Absolute Monocytes (0.10 - 0.60 /CUMM) 0.3 Absolute Eosinophils (0.0 - 0.7 /CUMM) 0.1 Absolute Basophils (0.0 - 0.2 /CUMM) 0 PUBS MCHC (33.0 - 37.0 G/DL) 32.8 L Diagnostic Data EKG Results Sinus with a first-degree AV block and nonspecific T-wave changes CXR Results are intact. IMPRESSION: Stable marked elevation of the left hemidiaphragm with probable mild left base atelectasis. Otherwise, no acute cardiopulmonary process. Assessment/Plan Assessment/Plan 1. Acute on chronic diastolic heart failure with hypoxemia, edema, and elevated BNP. The etiology is most likely secondary to fluid overload. There appears to be no evidence of an acute ischemic event. 2. Coronary disease by history status post coronary bypass surgery 3. Chronic stage IV renal insufficiency slightly worse with creatinine 4.4 4. Chronic anemia 5. Hypertension stable 6. Hyperlipidemia 7. Obstructive sleep apnea 8. Murmur suggestive of aortic stenosis Recommendations 1. Would obtain an echocardiogram to reassess LV function along with the etiology to his murmur. If he indeed has significant aortic stenosis this may be contributing to his heart failure 2. Renal consult is pending 3. Would consider further diuresis if agreed by renal BX and 4. Continue his current antihypertensive regimen 4. Maintain telemetry 5. Continue to monitor renal function Thank you for allowing [facility] to participate in the care of your patient. Consult Acknowledgment - Thank you for your consult request.
--- NOTE | 2016-10-04 11:04 | Cons- Pulmonary ---
General Information and HPI Consulting Request Date of Consult: 10/04/16 Requested By: Dr. Cody Reason for Consult: dyspnea, increased o2 requirements Source of Information: patient Exam Limitations: no limitations History of Present Illness: 86 year old man. Known to me from the office. History of obesity hypoventilation syndrome, restrictive lung disease, CHF diastolic EF 55%, CKD, chronic anemia, chronic pain with a hx of a nerve stimulator. Unable to tolerate CPAP, returned it, with no intention to reuse it knowing risks. Presented with dyspnea, increased o2 requirements to 4L from 2. About a 5-6 pound weight gain. Creatinine 4. Overall feels better than arrival. IV lasix offered relief. No fevers, no chills. Sputum with mixed mark. Denies any chest pain, no n/v/d/c. No headaches or vision changes. No sick contacts or travel hx. Allergies/Medications Allergies: Coded Allergies: NO KNOWN ALLERGIES (09/28/15) Home Med List: Amlodipine Besylate 10 MG TABLET 1 TAB PO DAILY BP (Reported) Atorvastatin Calcium 20 MG TABLET 1 TAB PO DAILY CHOLESTEROL (Reported) Cholecalciferol (Vitamin D3) (Vitamin D) 1,000 UNIT TABLET 1 TAB PO DAILY SUPPLEMENT (Reported) Docusate Sodium (Colace) 100 MG CAPSULE 1 CAP PO BID STOOL SOFTENER (Reported ) Epoetin Earnest (Procrit) 20,000 UNIT/1 ML VIAL 30,000 U SC ONCE A WEEK ANEMIA Ezetimibe (Zetia) 10 MG TABLET 1 TAB PO DAILY CHOLESTEROL (Reported) Ferrous Sulfate (IRON) (Unknown Strength) TABLET 2 TAB PO BID SUPPLEMENT ( Reported) Hydralazine HCl 100 MG TABLET 1 TAB PO BID BP (Reported) Isosorbide Mononitrate (Isosorbide Mononitrate ER) 60 MG TAB.ER.24H 1 TAB PO DAILY HEART (Reported) Labetalol HCl 300 MG TABLET 1 TAB PO BID BP (Reported) Levothyroxine Sodium 50 MCG TABLET 1 TAB PO DAILY THYROID (Reported) Sennosides (Senokot) 8.6 MG TABLET 1 TAB PO DAILY GI (Reported) Current Medications: Current Medications Sig/Tiffanie Start time Last Medication Dose Route Stop Time Status Admin Acetaminophen 650 MG Q6P PRN 10/03 1900 AC PO Acetaminophen/ 1 TAB Q6P PRN 10/03 1900 AC Hydrocodone Bitart PO Amlodipine Besylate 10 MG DAILY 10/04 1000 AC 10/04 PO 0922 Atorvastatin Calcium 20 MG 1700 10/04 1700 AC PO Cholecalciferol 1,000 IU DAILY 10/04 1000 AC 10/04 PO 0922 Docusate Sodium 100 MG BID 10/03 2200 AC 10/04 PO 0921 Docusate Sodium 100 MG BID PRN 10/03 1915 AC PO Ezetimibe 10 MG DAILY 10/04 1000 AC 10/04 PO 0922 Ferrous Sulfate 650 MG BID 10/03 2200 DC PO Ferrous Sulfate 325 MG BID 10/03 2200 AC 10/04 PO 0922 Furosemide 20 MG 1000,1600 10/04 1000 AC 10/04 IV 10/04 1601 1043 Furosemide 40 MG ONCE ONE 10/04 0945 CAN IV 10/04 0946 Furosemide 40 MG ONCE ONE 10/03 1730 DC 10/03 IV 10/03 1731 1932 Heparin Sodium 0 .STK-MED ONE 10/03 1538 DC (Porcine) .ROUTE Heparin Sodium 5,000 UNIT Q8 10/03 1529 AC 10/04 (Porcine) SC 0611 Hydralazine HCl 100 MG BID 10/03 2200 AC 10/04 PO 0921 Hydromorphone HCl 0.5 MG Q6P PRN 10/03 1915 AC 10/04 IV 0109 Isosorbide 60 MG DAILY 10/04 1000 AC 10/04 Mononitrate PO 0921 Labetalol HCl 300 MG BID 10/03 2200 AC 10/04 PO 0922 Levothyroxine Sodium 0.05 MG DAILY AC 10/04 0700 AC 10/04 PO 0611 Patient Medication 1 UNIT ONE NR 10/04 1000 Teaching ED 10/04 1600 Polyethylene Glycol 17 GM AT BEDTIME 10/03 2200 AC 10/03 PO 2200 Senna/Docusate Sodium 2 TAB DAILY 10/03 1540 AC 10/04 PO 0922 Review of Systems Comments 18 point Review of Systems performed. Positive and negative pertinent findings are deliniated in the HPI. Otherwise the ROS is negative. 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 FATHER, , Age 70; Cause: Myocardial infarction. Relation not specified for: colon cancer in mother Psychosocial History Where Do You Live? Home Services at Home: Nursing, Physical Therapy Primary Language: Macedonian Smoking Status: Former Smoker ETOH Use: denies use Illicit Drug Use: denies illicit drug use Living Will? 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 Ambulation: independent IADLs Independent: shopping, housework, finances, food prep, telephone, transportation , medication admin. Exam & Diagnostic Data Last 24 Hrs of Vital Signs/I&O Vital Signs Date Time Temp Pulse Resp B/P Pulse O2 O2 Flow FiO2 Ox Delivery Rate 10/04 0922 74 140/70 10/04 0922 74 140/70 10/04 0921 74 140/70 10/04 0921 74 140/70 10/04 0817 98.5 74 20 140/70 95 Nasal 4.0L Cannula 10/04 0800 94 Nasal 4.0L Cannula 10/04 0031 98.3 72 20 134/66 95 Nasal 4.0L Cannula 10/04 0000 96 Nasal 4.0L Cannula 10/03 2200 80 20 149/60 10/03 2159 80 20 140/60 10/03 1800 97.6 96 24 162/74 96 Non 4.0L ReBreather 10/03 1700 94 Nasal 4.0L Cannula 10/03 1700 97 Nasal 4.0L Cannula 10/03 1628 97.8 63 20 168/80 95 Nasal 4.5L Cannula 10/03 1553 97.6 67 19 162/74 96 Room Air / 1408 97.0 70 20 130/70 96 Nasal 4.0L Cannula 10/03 1245 96 Nasal 4.0L Cannula 10/03 1225 96.0 72 22 157/77 91 Nasal 4.0L Cannula Intake & Output 10/04 1600 10/04 0800 10/04 0000 Intake Total 200 150 Output Total 475 550 Balance -275 -400 Intake, Oral 200 150 Output, Urine 475 550 Patient 236 lb Weight Physical Exam Other Physical Findings: gen awake and alert HEENT nasal cannula present Lungs - scattered rhonchi and bibasilar crackles CVS - s1, s2, systolic murmur Abd - soft, obese, bs+ Ext with trace edema Last 48 Hrs of Labs/Jamel: Laboratory Tests 10/04/16 0610: Anion Gap 12, Estimated GFR 13 L, BUN/Creatinine Ratio 10.0, CBC w Diff NO MAN DIFF REQ, RBC 2.80 L, MCV 89.7, MCH 29.4, RDW 15.1 H, MPV 7.5, Gran % 76.8 H, Lymphocytes % 10.5 L, Monocytes % 9.0, Eosinophils % 3.5, Basophils % 0.2, Absolute Granulocytes 2.8, Absolute Lymphocytes 0.4 L, Absolute Monocytes 0.3, Absolute Eosinophils 0.1, Absolute Basophils 0, PUBS MCHC 32.8 L 10/03/16 2200: Troponin I Cancelled 10/03/16 1915: Troponin I < 0.01 10/03/16 1245: Anion Gap 10, Estimated GFR 14 L, BUN/Creatinine Ratio 11.3, Glucose 107 H, Calcium 9.1, Phosphorus 4.5, Magnesium 1.9, Iron 54, TIBC 296, Ferritin 40.4, Total Bilirubin 0.8, AST 21, ALT 32, Alkaline Phosphatase 43, Troponin I 0.01, Dnr-F-Symlunipfyn Pept 9680 H, Total Protein 6.6, Albumin 4.0, Globulin 2.6, Albumin/Globulin Ratio 1.5, PT 12.0, INR 1.14, APTT 34, CBC w Diff NO MAN DIFF REQ, RBC 2.90 L, MCV 89.0, MCH 29.2, RDW 15.9 H, MPV 7.1 L, Gran % 81.3 H, Lymphocytes % 8.8 L, Monocytes % 7.4, Eosinophils % 2.1, Basophils % 0.4, Absolute Granulocytes 3.2, Absolute Lymphocytes 0.3 L, Absolute Monocytes 0.3, Absolute Eosinophils 0.1, Absolute Basophils 0, PUBS MCHC 32.8 L Assessment/Plan Impression/Plan: Impression 86 year old man * Dyspnea likely secondary to acute on chronic diastolic heart failure and fluid overload * Underlying CKD with a worsening creatinine with GURPREET can be contributing to fluid overload as well * History of obesity hypoventilation - declines therapy Plan - ECHO pending - nephrology and cardiology follow up - ins/outs, and diuresis if ok with nephrology - maintain o2 sats >92% DVT prophylaxis at all times Consult Acknowledgment - Thank you for your consult request.
--- NOTE | 2016-10-04 12:18 | Cons- Nephrology ---
See Addendum General Information and HPI Consulting Request Date of Consult: 10/04/16 Requested By: VÍCTOR BAIN,ROEL Abbott Reason for Consult: CKD Source of Information: patient, old records Exam Limitations: no limitations History of Present Illness: The patient is an 86-year-old male with a past medical history most significant for Stage IV CKD (required short-term dialysis in 2015 and 2016 - hx as below), CAD status post CABG, hypertension, hypothyroidism, anemia, left chest wall zoster, ROBYN who presents with progressive oxygen requirement. The patient is known to me as he was recently admitted to [facility] Aug- August 2016 for an elevation in his serum creatinine to 5.4 from baseline in the 2's.'s hospitalization was complicated by worsening of his creatinine requiring initiation of dialysis. Although is unclear, this was in part thought to be secondary to urinary retention. He had an AMANDA cath placed was able to come off dialysis and left the hospital with a creatinine of 4.5 on September 20. Plans are for him to follow up with his outpatient nursery technician Dr. Zack Cross for assisted dialysis planning (i.e. AVF). Of note, patient had his Mims catheter taken out prior to discharge. The patient now presents with increased oxygen requirements at home. Whereas he previously needed 1.5 L, he now required 4 L. Because of the symptoms he presented to the emergency room. On chest x-ray, there is no clear evidence of pulmonary edema. He did have a chronic elevation of the left hemidiaphragm. 40 mg of IV Lasix was given with some relief. With this dose, his creatinine increased from 4.0-4.4. He is still satting in the low 90s on approximately 4-5 L nasal cannula. In speaking to the patient, he denies any urinary symptoms at home. Post-void bladder scan just performed - ~25-40cc urine. He denies NSAID use. He reports that he was eating and drinking okay at home. No chronic nausea/vomitting/altered taste. Of note, his weight on discharge was 230 pounds and was 239 pounds now on presentation. He had not been discharged on any diuretic. His last echocardiogram was in September 2015 and was a very technically difficult study but did not demonstrate any significant abnormalities. Allergies/Medications Allergies: Coded Allergies: NO KNOWN ALLERGIES (09/28/15) Home Med List: Amlodipine Besylate 10 MG TABLET 1 TAB PO DAILY BP (Reported) Atorvastatin Calcium 20 MG TABLET 1 TAB PO DAILY CHOLESTEROL (Reported) Cholecalciferol (Vitamin D3) (Vitamin D) 1,000 UNIT TABLET 1 TAB PO DAILY SUPPLEMENT (Reported) Docusate Sodium (Colace) 100 MG CAPSULE 1 CAP PO BID STOOL SOFTENER (Reported ) Epoetin Earnest (Procrit) 20,000 UNIT/1 ML VIAL 30,000 U SC ONCE A WEEK ANEMIA Ezetimibe (Zetia) 10 MG TABLET 1 TAB PO DAILY CHOLESTEROL (Reported) Ferrous Sulfate (IRON) (Unknown Strength) TABLET 2 TAB PO BID SUPPLEMENT ( Reported) Hydralazine HCl 100 MG TABLET 1 TAB PO BID BP (Reported) Isosorbide Mononitrate (Isosorbide Mononitrate ER) 60 MG TAB.ER.24H 1 TAB PO DAILY HEART (Reported) Labetalol HCl 300 MG TABLET 1 TAB PO BID BP (Reported) Levothyroxine Sodium 50 MCG TABLET 1 TAB PO DAILY THYROID (Reported) Sennosides (Senokot) 8.6 MG TABLET 1 TAB PO DAILY GI (Reported) Review of Systems Review of Systems: Complete 14 point ROS neg except as per HPI Past History Travel History Traveled to [place] past 21 day No Medical History Blood Transfusion Hx: Yes Neurological: shingles- left flank EENT: NONE Cardiovascular: CAD (s/p CABG x 5), diastolic CHF, hypertension, hyperlipidemia, atrial tachycardia Respiratory: pneumonia, WEARS O2 Gastrointestinal: NONE Hepatic: NONE Renal: chronic kidney disease (stage 4) Musculoskeletal: chronic back pain (implanted stimulator device), osteoarthritis Psychiatric: NONE Endocrine: hypothyroidism Blood Disorders: ANEMIA Cancer(s): colon/rectal cancer CIGARETTE TESTER/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 FATHER, , Age 70; Cause: Myocardial infarction. Relation not specified for: colon cancer in mother Psychosocial History Where Do You Live? Home Services at Home: Nursing, Physical Therapy Primary Language: Marshallese Smoking Status: Former Smoker ETOH Use: denies use Illicit Drug Use: denies illicit drug use Living Will? yes Power of Donkey Engine Firer/Fireman/HCP? unknown Functional Ability ADLs Independent: dressing, eating, toileting, bathing. Ambulation: independent IADLs Independent: shopping, housework, finances, food prep, telephone, transportation , medication admin. Exam & Diagnostic Data Vital Signs and I&O Vital Signs Date Time Temp Pulse Resp B/P Pulse O2 O2 Flow FiO2 Ox Delivery Rate 10/04 0922 74 140/70 10/04 0922 74 140/70 10/04 0921 74 140/70 10/04 0921 74 140/70 10/04 0817 98.5 74 20 140/70 95 Nasal 4.0L Cannula 10/04 0800 94 Nasal 4.0L Cannula 10/04 0031 98.3 72 20 134/66 95 Nasal 4.0L Cannula 10/04 0000 96 Nasal 4.0L Cannula 10/03 2200 80 20 149/60 10/03 2159 80 20 140/60 10/03 1800 97.6 96 24 162/74 96 Non 4.0L ReBreather 10/03 1700 94 Nasal 4.0L Cannula 10/03 1700 97 Nasal 4.0L Cannula 10/03 1628 97.8 63 20 168/80 95 Nasal 4.5L Cannula 10/03 1553 97.6 67 19 162/74 96 Room Air 10/03 1408 97.0 70 20 130/70 96 Nasal 4.0L Cannula 10/03 1245 96 Nasal 4.0L Cannula 10/03 1225 96.0 72 22 157/77 91 Nasal 4.0L Cannula Intake & Output 10/04 1600 10/04 0400 10/03 1600 10/03 0400 10/02 1600 10/02 0400 Intake Total 200 150 Output Total 475 550 Balance -275 -400 Intake, Oral 200 150 Output, Urine 475 550 Patient 236 lb 240 lb Weight Physical Exam: Gen - OK appearing Head - NCAT Eyes - EOMI, anicteric sclera Neck - JVP not clearly up CV - RRR Chest - decreased breath sounds at L base, no crackles Abd - soft, nontender Upper ext - no edema Lower ext - minimal edema Skin - no rash Neuro - AOX3 Results Pertinent Lab Results: Laboratory Tests 10/04 10/03 10/03 0610 2200 1915 Chemistry Sodium (137 - 145 mmol/L) 141 Potassium (3.5 - 5.1 mmol/L) 4.5 Chloride (98 - 107 mmol/L) 106 Carbon Dioxide (22 - 30 mmol/L) 24 Anion Gap (5 - 16) 12 BUN (9 - 20 mg/dL) 44 H Creatinine (0.7 - 1.2 mg/dL) 4.4 H Estimated GFR (>60 ml/min) 13 L BUN/Creatinine Ratio (7 - 25 %) 10.0 Troponin I (<0.11 ng/ml) Cancelled < 0.01 Hematology CBC w Diff NO MAN DIFF REQ WBC (4.8 - 10.8 /CUMM) 3.7 L RBC (4.70 - 6.10 /CUMM) 2.80 L Hgb (14.0 - 18.0 G/DL) 8.2 L Hct (42 - 52 %) 25.1 L MCV (80.0 - 94.0 FL) 89.7 MCH (27.0 - 31.0 PG) 29.4 RDW (11.5 - 14.5 %) 15.1 H Plt Count (130 - 400 /CUMM) 128 L MPV (7.4 - 10.4 FL) 7.5 Gran % (42.2 - 75.2 %) 76.8 H Lymphocytes % (20.5 - 51.1 %) 10.5 L Monocytes % (1.7 - 9.3 %) 9.0 Eosinophils % (0 - 5 %) 3.5 Basophils % (0.0 - 2.0 %) 0.2 Absolute Granulocytes (1.4 - 6.5 /CUMM) 2.8 Absolute Lymphocytes (1.2 - 3.4 /CUMM) 0.4 L Absolute Monocytes (0.10 - 0.60 /CUMM) 0.3 Absolute Eosinophils (0.0 - 0.7 /CUMM) 0.1 Absolute Basophils (0.0 - 0.2 /CUMM) 0 PUBS MCHC (33.0 - 37.0 G/DL) 32.8 L /03 1245 Chemistry Sodium (137 - 145 mmol/L) 137 Potassium (3.5 - 5.1 mmol/L) 4.8 Chloride (98 - 107 mmol/L) 105 Carbon Dioxide (22 - 30 mmol/L) 21 L Anion Gap (5 - 16) 10 BUN (9 - 20 mg/dL) 45 H Creatinine (0.7 - 1.2 mg/dL) 4.0 H Estimated GFR (>60 ml/min) 14 L BUN/Creatinine Ratio (7 - 25 %) 11.3 Glucose (65 - 99 mg/dL) 107 H Calcium (8.4 - 10.2 mg/dL) 9.1 Phosphorus (2.5 - 4.5 mg/dL) 4.5 Magnesium (1.6 - 2.3 mg/dL) 1.9 Iron (49 - 181 ug/dL) 54 TIBC (261 - 462 ug/dL) 296 Ferritin (17.9 - 464 ng/mL) 40.4 Total Bilirubin (0.2 - 1.3 mg/dL) 0.8 AST (17 - 59 U/L) 21 ALT (21 - 72 U/L) 32 Alkaline Phosphatase (< 127 U/L) 43 Troponin I (<0.11 ng/ml) 0.01 [id number] Pept (<125 pg/mL) 9680 H Total Protein (6.3 - 8.2 g/dL) 6.6 Albumin (3.5 - 5.0 g/dL) 4.0 Globulin (1.9 - 4.2 gm/dL) 2.6 Albumin/Globulin Ratio (1.1 - 2.2 %) 1.5 Coagulation PT (9.4 - 12.5 SEC) 12.0 INR (0.90 - 1.17) 1.14 APTT (25 - 37 SEC) 34 Hematology CBC w Diff NO MAN DIFF REQ WBC (4.8 - 10.8 /CUMM) 4.0 L RBC (4.70 - 6.10 /CUMM) 2.90 L Hgb (14.0 - 18.0 G/DL) 8.5 L Hct (42 - 52 %) 25.8 L MCV (80.0 - 94.0 FL) 89.0 MCH (27.0 - 31.0 PG) 29.2 RDW (11.5 - 14.5 %) 15.9 H Plt Count (130 - 400 /CUMM) 136 MPV (7.4 - 10.4 FL) 7.1 L Gran % (42.2 - 75.2 %) 81.3 H Lymphocytes % (20.5 - 51.1 %) 8.8 L Monocytes % (1.7 - 9.3 %) 7.4 Eosinophils % (0 - 5 %) 2.1 Basophils % (0.0 - 2.0 %) 0.4 Absolute Granulocytes (1.4 - 6.5 /CUMM) 3.2 Absolute Lymphocytes (1.2 - 3.4 /CUMM) 0.3 L Absolute Monocytes (0.10 - 0.60 /CUMM) 0.3 Absolute Eosinophils (0.0 - 0.7 /CUMM) 0.1 Absolute Basophils (0.0 - 0.2 /CUMM) 0 PUBS MCHC (33.0 - 37.0 G/DL) 32.8 L Imaging/Other Studies: Chest x-ray and TTE reviewed Assessment/Plan Assessment/Recommendations Assessment: Stage IV CKD - Mostly minimally proteinuric. Has undergone a serologic work-up during his prior admissions most notable for +p-ANCA 1:80 although MPO/PR3 not done. Has had multiple episodes of GURPREET the last of which he remains with severely impaired renal function. 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 GURPREET - Increase in SCr in the last day from a level that had been below where he left the hospital now back to his discharge "baseline" does seem to correspond with the lasix dose he had been given. SOB - I am a big confused by his SOB. His chest x-ray and exam do not suggest such a significant degree of pulmonary edema that would warrant this degree of hypoxia. I wonder in the setting of this chronically elevated L hemidiaphragm, he may have some degree of shunting (granted, he did not require this amount of oxygen on prior discharge and still had this). A PE should be ruled out as well. I would just want to rule out other etiologies because I do fear that further diuretics would end up leading to worsening renal failure and would ultimately end up requiring him to be initiated on dialysis again - this time likely permanent. Recommendations: -Hold diuretics -PE work-up - V/Q scan (cannot do CTA given renal impairment) -TTE - would opt for bubble study if possible to evaluate for shunting -MPO and PR3 ANCA -SPEP and KLFLC -Cont daily weights -Bladder scan already performed (25-40cc PVR) -Pulm/Cards consults appreciated Please call [phone] with ?'s
--- NOTE | 2016-10-04 12:20 | NUR ---
NURSING NOTE; PT VOIDED 200 ML. PVBS DONE SHOWING 25-40 ML.
[2016-10-04 16:50] VITALS: BP 150/62
--- NOTE | 2016-10-04 16:50 | PN- Att Addend ---
Attending MD Review Statement Attending Statement Attending MD Statement: examined this patient, discuss w/resident/PA/CREATIVE PROJECT MANAGER, agreed w/resident/PA/CREATIVE PROJECT MANAGER, reviewed EMR data (avail), discussed w/nursing Attending Assessment/Plan: Laboratory Tests 10/04/16 0610: Anion Gap 12, Estimated GFR 13 L, BUN/Creatinine Ratio 10.0, CBC w Diff NO MAN DIFF REQ, RBC 2.80 L, MCV 89.7, MCH 29.4, RDW 15.1 H, MPV 7.5, Gran % 76.8 H, Lymphocytes % 10.5 L, Monocytes % 9.0, Eosinophils % 3.5, Basophils % 0.2, Absolute Granulocytes 2.8, Absolute Lymphocytes 0.4 L, Absolute Monocytes 0.3, Absolute Eosinophils 0.1, Absolute Basophils 0, PUBS MCHC 32.8 L 10/03/16 2200: Troponin I Cancelled 10/03/16 1915: Troponin I < 0.01 Vital Signs Date Time Temp Pulse Resp B/P Pulse O2 O2 Flow FiO2 Ox Delivery Rate 10/04 0922 74 140/70 10/04 0922 74 140/70 10/04 0921 74 140/70 10/04 0921 74 140/70 10/04 0817 98.5 74 20 140/70 95 Nasal 4.0L Cannula 10/04 0800 94 Nasal 4.0L Cannula 10/04 0031 98.3 72 20 134/66 95 Nasal 4.0L Cannula 10/04 0000 96 Nasal 4.0L Cannula 10/03 2200 80 20 149/60 10/03 2159 80 20 140/60 10/03 1800 97.6 96 24 162/74 96 Non 4.0L ReBreather 10/03 1700 94 Nasal 4.0L Cannula 10/03 1700 97 Nasal 4.0L Cannula Patient seen and examined at bedside. Discussed with patient the care plan. Patient on exam still has bilateral basal crackles. Also has a systolic murmur on exam in the aortic and pulmonary area. Appreciate cardiology nephrology and pulmonary input. Patient is going to get an echocardiogram with bubble study. We're also going to do a VQ scan. Nephrology recommending holding further diuresis for now. Patient did have negative fluid balance with diuresis. We will monitor closely on telemetry. We will also continue to follow closely his platelet count and renal functions.
--- NOTE | 2016-10-04 18:54 | ULTRASOUND REPORT ---
EXAMINATION: US TRIPLEX LOWER EXTREMITY, BILATERAL CLINICAL INFORMATION: Bilateral leg pain. Higher O2 requirement. COMPARISON: None TECHNIQUE: Color-flow triplex imaging with spectral analysis and compression Doppler were performed on the bilateral lower extremities. FINDINGS: Respiratory variation, normal compression and augmented flow are noted throughout the bilateral lower extremities. The visualized common femoral vein, superficial femoral vein, profunda femoral vein, popliteal vein and midcalf peroneal and posterior tibial venous segments show no evidence of deep venous thrombosis. There is a small left Davies's cyst measuring 3.1 x 0.7 x 2.8 cm. There is no Davies's cyst in right leg. IMPRESSION: Normal triplex scan without evidence of deep venous thrombosis involving the bilateral lower extremities. Small left Davies's cyst.
--- NOTE | 2016-10-04 19:56 | Patient Discharge Instructions ---
Discharge Instructions General Discharge Information You were seen/treated for: Acute onset of shortness of breath, probably secondary to pulmonary Hypertension Special Instructions: Please follow-up with your raker buffing wheel within a week of discharge Please follow-up with your police captain within a week of discharge and discuss about the blood workup-MPO,PR3 ANCA, SPEP and KLFLC Please follow-up with your PCP within a week of discharge Please take the medication as advised Diet Recommended Diet: Renal Non Dialysis Acute Coronary Syndrome Inclusion Criteria At DC or during hospital stay patient has or had the following: ACS DIAGNOSIS No Discharge Core Measures Meds if any: Prescribed or Continued at Discharge Meds if any: NOT Prescribed or Continued at Discharge Congestive Heart Failure Inclusion Criteria At DC or during hospital stay patient has or had the following: CHF DIAGNOSIS No Discharge Core Measures Meds if any: Prescribed or Continued at Discharge Meds if any: NOT Prescribed or Continued at Discharge Cerebrovascular accident Inclusion Criteria At DC or during hospital stay patient has or had the following: CVA/TIA Diagnosis No Discharge Core Measures Meds if any: Prescribed or Continued at Discharge Meds if any: NOT Prescribed or Continued at Discharge Venous thromboembolism Inclusion Criteria VTE Diagnosis No VTE Type NONE VTE Confirmed by (Test) NONE Discharge Core Measures - Per Current guidelines, there needs to be overlap - treatment for the first 5 days of Warfarin therapy. - If discharged on Warfarin prior to 5 days of - overlap therapy, the patient will need to be - assessed for post discharge needs including - *Post discharge parental anticoagulation - *Warfarin and/or parental anticoagulation education - *Follow up date to check INR post discharge At least 5 days overlap therapy as Inpatient No Meds if any: Prescribed or Continued at Discharge Warfarin No Note: Overlap Therapy is Warfarin and Anticoagulant Meds if any: NOT Prescribed or Continued at Discharge
[2016-10-04 22:41] VITALS: BP 150/62
--- NOTE | 2016-10-05 08:15 | PN- Housestaff ---
See Addendum Subjective Follow-up For: Acute on chronic CHF secondary to fluid overload Complaints: no complaints Tele-Events Since Last Visit: Normal sinus rhythm, first-degree heart block, heart rate between 68-79 Subjective: Patient is seen and examined at the bedside. He was not having any active complaints. He denies of any shortness of breath. His pain is same on left side of posterior part of chest. Review of Systems Constitutional: Denies: no symptoms. Comments: Patient denies any active complain, except pain in left side of back of chest is same as before. Objective Last 24 Hrs of Vital Signs/I&O Vital Signs Date Time Temp Pulse Resp B/P Pulse O2 O2 Flow FiO2 Ox Delivery Rate 10/05 1139 77 152/64 10/05 1138 77 152/64 10/05 1137 77 152/64 10/05 1137 77 152/64 10/05 0817 98.1 77 20 152/64 96 Nasal 4.0L Cannula 10/05 0000 94 Nasal 4.0L Cannula 10/04 2241 72 150/62 10/04 2236 75 150/62 10/04 2235 75 150/62 10/04 1650 99.0 72 18 150/62 94 Nasal 4.0L Cannula 10/04 1600 94 Nasal 4.0L Cannula Intake & Output 10/05 1600 10/05 0800 10/05 0000 Intake Total 220 620 Output Total 400 1200 Balance -180 -580 Intake, IV 100 Intake, Oral 220 520 Output, Urine 400 1200 Physical Exam General Appearance: Alert, Oriented X3, Cooperative Skin: area of hypopigmentation of left side of back of chest Cardiovascular: Normal S1, Normal S2, murmur Lungs: mild basilar crackles Abdomen: Soft, No Tenderness, distended Neurological: Normal Speech Extremities: No Clubbing, No Cyanosis, No Edema Vascular: Normal Pulses, Pulses Symmetrical Current Medications: Current Medications Sig/Tiffanie Start time Last Medication Dose Route Stop Time Status Admin Acetaminophen 650 MG Q6P PRN 10/03 1900 AC PO Acetaminophen/ 1 TAB Q6P PRN 10/03 1900 AC Hydrocodone Bitart PO Amlodipine Besylate 10 MG DAILY 10/04 1000 AC 10/05 PO 1138 Atorvastatin Calcium 20 MG 1700 10/04 1700 AC 10/04 PO 1835 Cholecalciferol 1,000 IU DAILY 04/04 1000 AC 10/05 PO 1139 Docusate Sodium 100 MG BID 10/03 2200 AC 10/05 PO 1137 Docusate Sodium 100 MG BID PRN 10/03 1915 AC PO Epoetin Earnest 15,000 U EVERY 2 WEEKS 10/04 1600 AC 10/04 SC 1835 Ezetimibe 10 MG DAILY 10/04 1000 AC 10/05 PO 1139 Ferric Sodium 125 MG 1530 10/04 1530 AC 10/04 Gluconate Complex IV 10/11 1629 1835 Sodium Chloride 100 ML Ferric Sodium 125 MG DAILY 10/04 1418 CAN Gluconate Complex IV 10/11 1001 Ferrous Sulfate 325 MG BID 10/03 2200 AC 10/05 PO 1138 Furosemide 20 MG 1000,1600 10/04 1000 DC 10/04 IV 10/04 1601 1043 Heparin Sodium 5,000 UNIT Q8 10/03 1529 AC 10/05 (Porcine) SC 0558 Hydralazine HCl 100 MG BID 10/03 2200 10/05 PO 1137 Hydromorphone HCl 0.5 MG Q6P PRN 10/03 1915 10/04 IV 0109 Isosorbide 90 MG DAILY 10/06 1000 Mononitrate PO Isosorbide 60 MG DAILY 10/04 1000 DC 10/05 Mononitrate PO 1137 Labetalol HCl 300 MG BID 10/03 2200 10/05 PO 1139 Levothyroxine Sodium 0.05 MG DAILY AC 10/04 0700 AC 10/05 PO 0553 Patient Medication 1 ED .STK-MED ONE 10/04 1337 [facility] ED 10/04 1338 Patient Medication 1 UNIT ONE NR 10/04 1000 [facility] ED 10/04 1600 Patient Own 1 UNIT SEE ADMIN CRITERIA.. 10/04 2245 10/05 Medication TOP 1143 Polyethylene Glycol 17 GM AT BEDTIME 10/03 220 10/04 PO 2236 Senna/Docusate Sodium 2 TAB DAILY 10/03 1540 10/05 PO 1138 Last 24 Hrs of Lab/Jamel Results Last 24 Hrs of Labs/Mics: Laboratory Tests 10/05/16 0655: Anion Gap 12, Estimated GFR 14 L, BUN/Creatinine Ratio 10.5, CBC w Diff NO MAN DIFF REQ, RBC 2.86 L, MCV 88.7, MCH 29.3, RDW 15.4 H, MPV 7.4, Gran % 74.2, Lymphocytes % 11.4 L, Monocytes % 10.2 H, Eosinophils % 3.9, Basophils % 0.3, Absolute Granulocytes 2.2, Absolute Lymphocytes 0.3 L, Absolute Monocytes 0.3, Absolute Eosinophils 0.1, Absolute Basophils 0, PUBS MCHC 33.0 10/04/16 2150: D-Dimer 683 H 10/04/16 1855: pH 7.33 L, pCO2 41, pO2 80, HCO3 21, ABG O2 Sat (Measured) 94.0 L, Carboxyhemoglobin 1.0 L, O2 Concentration % 4L, Temperature 99.0, O2 Delivery Method NC, Phlebotomy Draw Site LEFT RADIAL Assessment/Plan Assessment: Patient is an 86-year-old male is significant past medical history of hypertension, hyperlipidemia, CAD s/p CABG,HFpEF, hypothyroidism, chronic kidney disease, chronic anemia, history of colon cancer s/p colon resection, chronic pain syndrome on nerve stimulator, ROBYN, on 1.5 liters oxygen not on CPAP, history of recent admission for CHF presented with chief complaints of chest pain and difficulty in breathing since morning. Chest x-ray -mild elevation of left hemidiaphragm with mild left basilar atelectasis, no acute cardiopulmonary abnormality Pertinent labs -hemoglobin 8.4, creatinine -4.2, proBNP -9680, first set of troponin 0.01 Plan - Sudden onset of severe shortness of breath under evaluation * We will hold lasix. * We will f/u with echo to know right atrial pressure measurement. Stage IV/V Chronic kidney disease * We will follow the recommendation of office nurse practitioner * We will f/u MPO/PR3 ANCA, Vascular Mapping of both upper extremeties for possible AV fistula in future * If needed we will take vascular consult for possible AV fistula CHF and pulmonary edema - * chest x-ray does not show any signs of fluid overload and pulmonary edema, ProBNP-9680, D-Dimer-683 * We will continue to monitor patient in telemetry floor * We will hold Lasix. * Strict intake output charting * We did serial EKGs/troponins were negative * We will follow cardiology rcms * we increased dose of Imdure to 90mg. * we will f/u CXR tmr Anemia of chronic disease * Hb-8.4 * We will continue erythropoietin 15,000 units every 2 weeks * We will continue patient on inj sodium ferric gluconate 125 milligrams for total 8 doses Obstructive sleep apnea/ COPD- * Patient is having history of obstructive sleep apnea and not using CPAP at Nighttime * We will follow pul. recommendation * Added Tab Prednisone 40mg x OD x 5 days. ( 10/05/16-10/10/16) Diet-renal diet with fluid restriction DVT prophylaxis -ALP S CODE STATUS -full code Problem List: 1. Obstructive sleep apnea 2. Chronic kidney disease 3. Acute exacerbation of CHF (congestive heart failure) Pain Ratin Pain Location: left side of back of chest Pain Goal: Remain pain free Pain Plan: Avoid NSAIDs Tomorrow's Labs & Rationales: BEP - f/u for creatinine DVT/Prophylaxis: mechanical, pharmacological
[2016-10-05 08:17] VITALS: BP 152/64
[2016-10-05 08:33] LABS: ABSOLUTE BASOPHIL COUNT 0 /CUMM (0.0-0.2); ABSOLUTE EOSINOPHIL COUNT 0.1 /CUMM (0.0-0.7); ABSOLUTE GRANULOCYTE CT 2.2 /CUMM (1.4-6.5); ABSOLUTE LYMPH COUNT 0.3 /CUMM (1.2-3.4); ABSOLUTE MONOCYTE COUNT 0.3 /CUMM (0.10-0.60); BASOPHIL % 0.3 % (0.0-2.0); EOSINOPHIL % 3.9 % (0-5); GRANULOCYTE % 74.2 % (42.2-75.2); HEMATOCRIT 25.3 % (42-52); MEAN CORPUSCULAR HGB 29.3 PG (27.0-31.0); MEAN CORPUSCULAR VOLUME 88.7 FL (80.0-94.0); MEAN PLATELET VOLUME 7.4 FL (7.4-10.4); PLATELET COUNT 122 /CUMM (130-400); RBC DISTRIBUTION WIDTH 15.4 % (11.5-14.5); RED BLOOD CELL CT 2.86 /CUMM (4.70-6.10)
--- NOTE | 2016-10-05 10:32 | PN- Pulmonary ---
Subjective HPI/Critical Care Issues: pt seen and examined feels that his shingle post herpetic/neuropathic pain is present otherwise comfortable no new events 96% on 4LNC Objective Current Medications: Current Medications Sig/Tiffanie Start time Last Medication Dose Route Stop Time Status Admin Acetaminophen 650 MG Q6P PRN 10/03 1900 AC PO Acetaminophen/ 1 TAB Q6P PRN 10/03 1900 AC Hydrocodone Bitart PO Amlodipine Besylate 10 MG DAILY 10/04 1000 AC 10/04 PO 0922 Atorvastatin Calcium 20 MG 1700 10/04 1700 AC 10/04 PO 1835 Cholecalciferol 1,000 IU DAILY 10/04 1000 AC 10/04 PO 0922 Docusate Sodium 100 MG BID 10/03 2200 AC 10/04 PO 2235 Docusate Sodium 100 MG BID PRN 10/03 1915 AC PO Epoetin Earnest 15,000 U EVERY 2 WEEKS 10/04 1600 AC 10/04 SC 1835 Ezetimibe 10 MG DAILY 10/04 1000 AC 10/04 PO 0922 Ferric Sodium 125 MG 1530 10/04 1530 AC 10/04 Gluconate Complex IV 10/11 1629 1835 Sodium Chloride 100 ML Ferric Sodium 125 MG DAILY 10/04 1418 CAN Gluconate Complex IV 10/11 1001 Ferrous Sulfate 325 MG BID 10/03 2200 AC 10/04 PO 2235 Furosemide 20 MG 1000,1600 10/04 1000 DC 10/04 IV 10/04 1601 1043 Heparin Sodium 5,000 UNIT Q8 10/03 1529 AC 10/05 (Porcine) SC 0558 Hydralazine HCl 100 MG BID 10/03 2200 AC 10/04 PO 2235 Hydromorphone HCl 0.5 MG Q6P PRN 10/03 1915 AC 10/04 IV 0109 Isosorbide 60 MG DAILY 10/04 1000 AC 10/04 Mononitrate PO 0921 Labetalol HCl 300 MG BID 10/03 2200 AC 10/04 PO 2236 Levothyroxine Sodium 0.05 MG DAILY AC 10/04 0700 AC 10/05 PO 0553 Patient Medication 1 ED .STK-MED ONE 10/[address] Teaching ED 10/04 1338 Patient Medication 1 UNIT ONE NR 10/[address] Teaching ED 10/04 1600 Patient Own 1 UNIT SEE ADMIN CRITERIA.. 10/04 2245 AC Medication TOP Polyethylene Glycol 17 GM AT BEDTIME 10/03 2200 AC 10/04 PO 2236 Senna/Docusate Sodium 2 TAB DAILY 10/03 1540 AC 10/04 PO 0922 Vital Signs & I&O Last 24 Hrs of Vitals and I&O: Vital Signs Date Time Temp Pulse Resp B/P Pulse O2 O2 Flow FiO2 Ox Delivery Rate 10/05 816 98.1 77 20 152/64 96 Nasal 4.0L Cannula 10/05 0000 94 Nasal 4.0L Cannula 10/04 2241 72 150/62 10/04 223 75 150/62 10/04 2235 75 150/62 10/04 1650 99.0 72 18 150/62 94 Nasal 4.0L Cannula 10/04 1600 94 Nasal 4.0L Cannula Intake & Output 10/05 1600 10/05 0800 10/05 0000 Intake Total 220 620 Output Total 400 1200 Balance -180 -580 Intake, IV 100 Intake, Oral 220 520 Output, Urine 400 1200 Exam Other Physical Findings: gen awake and alert HEENT nasal cannula present Lungs - scattered rhonchi and bibasilar crackles CVS - s1, s2, systolic murmur Abd - soft, obese, bs+ Ext with trace edema Results Last 24 Hrs of Lab Results: Laboratory Tests 10/05/16 0655: Anion Gap 12, Estimated GFR 14 L, BUN/Creatinine Ratio 10.5, CBC w Diff NO MAN DIFF REQ, RBC 2.86 L, MCV 88.7, MCH 29.3, RDW 15.4 H, MPV 7.4, Gran % 74.2, Lymphocytes % 11.4 L, Monocytes % 10.2 H, Eosinophils % 3.9, Basophils % 0.3, Absolute Granulocytes 2.2, Absolute Lymphocytes 0.3 L, Absolute Monocytes 0.3, Absolute Eosinophils 0.1, Absolute Basophils 0, PUBS MCHC 33.0 10/04/16 2150: D-Dimer 683 H 10/04/16 1855: pH 7.33 L, pCO2 41, pO2 80, HCO3 21, ABG O2 Sat (Measured) 94.0 L, Carboxyhemoglobin 1.0 L, O2 Concentration % 4L, Temperature 99.0, O2 Delivery Method NC, Phlebotomy Draw Site LEFT RADIAL Impression/Plan Impression/Plan Impression/Plan: Impression 86 year old man * Dyspnea likely secondary to acute on chronic diastolic heart failure and fluid overload * Underlying CKD with a worsening creatinine with GURPREET can be contributing to fluid overload as well * History of obesity hypoventilation - declines therapy Plan - ECHO pending - nephrology and cardiology follow up - for symptoms can do a trial of steroids - prednisone 40mg x 5 days - recheck CXR today - V/Q scan may not be useful - he has pain that are indicative of neuropathic post herpetic/shingles pain - ins/outs, and diuresis if ok with nephrology - maintain o2 sats >92% DVT prophylaxis at all times
--- NOTE | 2016-10-05 11:39 | PN- Cardiology ---
Subjective Subjective: Laying flat in bed on nasal cannula oxygen. Reports mild dyspnea, unchanged. No palpitations. Objective Vital Signs and I&Os Vital Signs Date Time Temp Pulse Resp B/P Pulse O2 O2 Flow FiO2 Ox Delivery Rate 10/05 816 98.1 77 20 152/64 96 Nasal 4.0L Cannula 10/05 0000 94 Nasal 4.0L Cannula 10/04 2241 72 150/62 10/04 2236 75 150/62 10/04 2235 75 150/62 10/04 1650 99.0 72 18 150/62 94 Nasal 4.0L Cannula 10/04 1600 94 Nasal 4.0L Cannula Intake & Output 10/05 0800 10/05 0000 10/04 1600 10/04 0810/04 0000 Intake Total 220 620 400 200 150 Output Total 400 1200 600 475 550 Balance -180 -580 -200 -275 -400 Intake, IV 100 Intake, Oral 220 520 400 200 150 Output, Urine 400 1200 600 475 550 Patient 236 lb Weight Physical Exam: General: no apparent distress. On nasal cannula. Eyes: No obvious scleral icterus. HEENT: No jugular venous distention or abnormal jugular venous pulsations. Cardiovascular: Normal intensity S1/S2. PMI not grossly displaced. Respiratory: Trace respiratory wheezes Abdomen: Soft, nontender with no guarding or rebound tenderness. Musculoskeletal: No clubbing or cyanosis noted, trace edema Skin: Warm Neurologic: No gross focal deficits noted. Current Medications: Current Medications Sig/Tiffanie Start time Last Medication Dose Route Stop Time Status Admin Acetaminophen 650 MG Q6P PRN 10/03 1900 AC PO Acetaminophen/ 1 TAB Q6P PRN 10/03 1900 AC Hydrocodone Bitart PO Amlodipine Besylate 10 MG DAILY 10/04 1000 AC 10/04 PO 0922 Atorvastatin Calcium 20 MG 1700 10/04 1700 AC 10/04 PO 1835 Cholecalciferol 1,000 IU DAILY 10/04 1000 AC 10/04 PO 0922 Docusate Sodium 100 MG BID 10/03 2200 AC 10/04 PO 2235 Docusate Sodium 100 MG BID PRN 10/03 1915 AC PO Epoetin Earnest 15,000 U EVERY 2 WEEKS 10/04 1600 AC 10/04 SC 1835 Ezetimibe 10 MG DAILY 10/04 1000 AC 10/04 PO 0922 Ferric Sodium 125 MG 1530 10/04 1530 AC 10/04 Gluconate Complex IV 10/11 1629 1835 Sodium Chloride 100 ML Ferric Sodium 125 MG DAILY 10/04 1418 CAN Gluconate Complex IV 10/11 1001 Ferrous Sulfate 325 MG BID 10/03 2199 AC 10/04 PO 2235 Furosemide 20 MG 1000,1600 10/04 1000 DC 10/04 IV 10/04 1601 1043 Heparin Sodium 5,000 UNIT Q8 10/03 1529 AC 10/05 (Porcine) SC 0558 Hydralazine HCl 100 MG BID 10/03 220 AC 10/04 PO 2235 Hydromorphone HCl 0.5 MG Q6P PRN 10/03 1915 AC 10/04 IV 0109 Isosorbide 60 MG DAILY 10/04 1000 AC 10/04 Mononitrate PO 0921 Labetalol HCl 300 MG BID 10/03 220 AC 10/04 PO 223 Levothyroxine Sodium 0.05 MG DAILY AC 10/04 0700 AC 10/05 PO 0553 Patient Medication 1 ED .STK-MED ONE 10/04 1337 [facility] ED 10/04 1338 Patient Medication 1 UNIT ONE NR 10/04 1000 [facility] ED 10/04 1600 Patient Own 1 UNIT SEE ADMIN CRITERIA.. 10/04 2245 Medication TOP Polyethylene Glycol 17 GM AT BEDTIME 10/03 2199 10/04 PO 2236 Senna/Docusate Sodium 2 TAB DAILY 10/03 1540 10/04 PO 0922 Results Last 48 Hrs of Labs/Mics: Laboratory Tests 10/05/16 0655: Anion Gap 12, Estimated GFR 14 L, BUN/Creatinine Ratio 10.5, CBC w Diff NO MAN DIFF REQ, RBC 2.86 L, MCV 88.7, MCH 29.3, RDW 15.4 H, MPV 7.4, Gran % 74.2, Lymphocytes % 11.4 L, Monocytes % 10.2 H, Eosinophils % 3.9, Basophils % 0.3, Absolute Granulocytes 2.2, Absolute Lymphocytes 0.3 L, Absolute Monocytes 0.3, Absolute Eosinophils 0.1, Absolute Basophils 0, PUBS MCHC 33.0 10/04/16 2150: D-Dimer 683 H 10/04/16 1855: pH 7.33 L, pCO2 41, pO2 80, HCO3 21, ABG O2 Sat (Measured) 94.0 L, Carboxyhemoglobin 1.0 L, O2 Concentration % 4L, Temperature 99.0, O2 Delivery Method NC, Phlebotomy Draw Site LEFT RADIAL 10/04/16 0610: Anion Gap 12, Estimated GFR 13 L, BUN/Creatinine Ratio 10.0, CBC w Diff NO MAN DIFF REQ, RBC 2.80 L, MCV 89.7, MCH 29.4, RDW 15.1 H, MPV 7.5, Gran % 76.8 H, Lymphocytes % 10.5 L, Monocytes % 9.0, Eosinophils % 3.5, Basophils % 0.2, Absolute Granulocytes 2.8, Absolute Lymphocytes 0.4 L, Absolute Monocytes 0.3, Absolute Eosinophils 0.1, Absolute Basophils 0, PUBS MCHC 32.8 L 10/03/16 2200: Troponin I Cancelled 10/03/16 1915: Troponin I < 0.01 10/03/16 1659: Urine Color Cancelled, Urine Clarity Cancelled, Urine pH Cancelled, Ur Specific [place] Cancelled, Urine Protein Cancelled, Urine Ketones Cancelled, Urine Nitrite Cancelled, Urine Bilirubin Cancelled, Urine Urobilinogen Cancelled, Ur Leukocyte Esterase Cancelled, Ur Microscopic Cancelled, Urine Hemoglobin Cancelled, Urine Glucose Cancelled 10/03/16 1659: Ur Random Creatinine Cancelled, Ur Random Sodium Cancelled, Ur Random Potassium Cancelled, Fraction Sodium Excret Cancelled 10/03/16 1245: Anion Gap 10, Estimated GFR 14 L, BUN/Creatinine Ratio 11.3, Glucose 107 H, Calcium 9.1, Phosphorus 4.5, Magnesium 1.9, Iron 54, TIBC 296, Ferritin 40.4, Total Bilirubin 0.8, AST 21, ALT 32, Alkaline Phosphatase 43, Troponin I 0.01, [id number] Pept 9680 H, Total Protein 6.6, Albumin 4.0, Globulin 2.6, Albumin/Globulin Ratio 1.5, PT 12.0, INR 1.14, APTT 34, CBC w Diff NO MAN DIFF REQ, RBC 2.90 L, MCV 89.0, MCH 29.2, RDW 15.9 H, MPV 7.1 L, Gran % 81.3 H, Lymphocytes % 8.8 L, Monocytes % 7.4, Eosinophils % 2.1, Basophils % 0.4, Absolute Granulocytes 3.2, Absolute Lymphocytes 0.3 L, Absolute Monocytes 0.3, Absolute Eosinophils 0.1, Absolute Basophils 0, PUBS MCHC 32.8 L Recent Imaging Studies: Telemetry tracings were personally reviewed and shows sinus rhythm Venous Doppler IMPRESSION: Normal triplex scan without evidence of deep venous thrombosis involving the bilateral lower extremities. Small left Davies's cyst. Assessment/Plan Assessment/Plan 1. Acute on chronic diastolic heart failure 2. Coronary disease by history status post coronary bypass surgery 3. Chronic stage IV renal insufficiency slightly worse with creatinine 4.4 4. Chronic anemia 5. Hypertension 6. Hyperlipidemia 7. Obstructive sleep apnea Blood pressure is above goal, recommend increasing the Imdur to 90 mg by mouth daily. Diuretics currently on hold per nephrology. Repeat chest x-ray. Creatinine grossly stable. Echocardiogram is pending. Pulmonary is following. Gonzalo Lamas MD [facility] Continue telemetry? No
--- NOTE | 2016-10-05 13:01 | PN- Nephrology ---
Assessment/Plan Assessment: Stage IV/V CKD - Mostly minimally proteinuric. Has undergone a serologic work- up during his prior admissions most notable for +p-ANCA 1:80 although MPO/PR3 not done. Has had multiple episodes of GURPREET the last of which he remains with severely impaired renal function. 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 In general, he is close to needing dialysis. It's difficult to tell if some of his symptoms which stem from his last hospitalization could be considered mildly uremic. There is no urgency to initiating dialysis at this time. I would prefer getting him discharged and seeing Dr. Cross who can get him set up with Vascular surgery for permanent access placement. We can do a vascular U/S while he's here. GURPREET - SCr back down today. Not clear that he's volume expanded - got 20mg IV lasix yesterday AM which given his GFR likely had a negligible effect. I would maintain him off diuretics while being closley followed here. SOB - Confusing. Volume status seems OK. No DVT on LE doppler. ?2/2 obesity hypoventilation compounded by pain from Zoster. Seems to be stable. Suggestion: -Hold diuretics today -TTE -MPO and PR3 ANCA -SPEP and KLFLC -Cont daily weights -Bladder scan already performed (25-40cc PVR) -Pulm/Cards consults appreciated -Would get vascular mapping of upper extremities -Would save non-dominant arm from BP checks, IV's, blood draws Please call [phone] with ?'s Subjective Subjective: Feeling OK 96% on 4L NC Last lasix dose of 20mg yesterday AM Objective Vital Signs and I&Os Vital Signs Date Time Temp Pulse Resp B/P Pulse O2 O2 Flow FiO2 Ox Delivery Rate 10/05 1139 77 152/64 10/05 1138 77 152/64 10/05 1137 77 152/64 10/05 1137 77 152/64 10/05 0817 98.1 77 20 152/64 96 Nasal 4.0L Cannula 10/05 0000 94 Nasal 4.0L Cannula 10/04 2241 72 150/62 10/04 2236 75 150/62 10/04 2235 75 150/62 10/04 1650 99.0 72 18 150/62 94 Nasal 4.0L Cannula 10/04 1600 94 Nasal 4.0L Cannula Intake & Output 10/05 1600 10/05 0400 10/04 1600 10/04 0400 10/03 1600 10/03 0400 Intake Total 220 620 600 150 Output Total 400 1200 1075 550 Balance -180 -580 -475 -400 Intake, IV 100 Intake, Oral 220 520 600 150 Output, Urine 400 1200 1075 550 Patient 236 lb 240 lb Weight Physical Exam: Gen - OK appearing HEENT - JVP not up CV - RRR Chest - decreased breath sounds L base, scant R basilar crackles Abd - soft, nontender Ext - no edema Neuro - alert and oriented Current Medications: Current Medications Sig/Tiffanie Start time Last Medication Dose Route Stop Time Status Admin Acetaminophen 650 MG Q6P PRN 10/03 1900 AC PO Acetaminophen/ 1 TAB Q6P PRN 10/03 1900 AC Hydrocodone Bitart PO Amlodipine Besylate 10 MG DAILY 10/04 1000 AC 10/05 PO 1138 Atorvastatin Calcium 20 MG 1700 10/04 1700 AC 10/04 PO 1835 Cholecalciferol 1,000 IU DAILY 10/04 1000 AC 10/05 PO 1139 Docusate Sodium 100 MG BID 10/03 2200 AC 10/05 PO 1137 Docusate Sodium 100 MG BID PRN 10/03 191 AC PO Epoetin Earnest 15,000 U EVERY 2 WEEKS 10/04 1600 AC 10/04 SC 1835 Ezetimibe 10 MG DAILY 10/04 1000 AC 10/05 PO 1139 Ferric Sodium 125 MG 1530 04 1530 AC 10/04 Gluconate Complex IV 10/11 1629 1835 Sodium Chloride 100 ML Ferric Sodium 125 MG DAILY 10/04 1418 CAN Gluconate Complex IV 10/11 1001 Ferrous Sulfate 325 MG BID 10/03 220 AC 10/05 PO 1138 Furosemide 20 MG 1000,1600 10/04 1000 DC 10/04 IV 10/04 1601 1043 Heparin Sodium 5,000 UNIT Q8 10/03 1529 AC 10/05 (Porcine) AL 0558 Hydralazine HCl 100 MG BID 10/03 220 AC 10/05 PO 1137 Hydromorphone HCl 0.5 MG Q6P PRN 10/03 1915 AC 10/04 IV 0109 Isosorbide 90 MG DAILY 10/06 1000 AC Mononitrate PO Isosorbide 60 MG DAILY 10/04 1000 DC 10/05 Mononitrate PO 1137 Labetalol HCl 300 MG BID 10/03 2200 10/05 PO 1139 Levothyroxine Sodium 0.05 MG DAILY 10/04 0700 10/05 PO 0553 Patient Medication 1 ED .STK-MED ONE 10/04 1337 [facility] ED 10/04 1338 Patient Medication 1 UNIT ONE NR 10/04 1000 [facility] ED 10/04 1600 Patient Own 1 UNIT SEE ADMIN CRITERIA.. 10/04 2245 10/05 Medication TOP 1143 Polyethylene Glycol 17 GM AT BEDTIME 10/03 2199 10/04 PO 2236 Senna/Docusate Sodium 2 TAB DAILY 10/03 1540 10/05 PO 1138 Results Pertinent Lab Results: Laboratory Tests 10/05 10/04 10/04 0655 2150 1855 Blood Gas pH (7.35 - 7.45 PH) 7.33 L pCO2 (35 - 45 TORR) 41 pO2 (80 - 100 TORR) 80 HCO3 (21 - 28 MEQ/L) 21 ABG O2 Sat (Measured) (>96.0 %) 94.0 L Carboxyhemoglobin (1.5 - 5.0 %) 1.0 L O2 Concentration % 4L Temperature (97.0 - 100.0 FARH) 99.0 O2 Delivery Method NC Chemistry Sodium (137 - 145 mmol/L) 142 Potassium (3.5 - 5.1 mmol/L) 4.1 Chloride (98 - 107 mmol/L) 106 Carbon Dioxide (22 - 30 mmol/L) 23 Anion Gap (5 - 16) 12 BUN (9 - 20 mg/dL) 44 H Creatinine (0.7 - 1.2 mg/dL) 4.2 H Estimated GFR (>60 ml/min) 14 L BUN/Creatinine Ratio (7 - 25 %) 10.5 Coagulation D-Dimer (70 - 232 ng/ml) 683 H Hematology CBC w Diff NO MAN DIFF REQ WBC (4.8 - 10.8 /CUMM) 3.0 L RBC (4.70 - 6.10 /CUMM) 2.86 L Hgb (14.0 - 18.0 G/DL) 8.4 L Hct (42 - 52 %) 25.3 L MCV (80.0 - 94.0 FL) 88.7 MCH (27.0 - 31.0 PG) 29.3 RDW (11.5 - 14.5 %) 15.4 H Plt Count (130 - 400 /CUMM) 122 L MPV (7.4 - 10.4 FL) 7.4 Gran % (42.2 - 75.2 %) 74.2 Lymphocytes % (20.5 - 51.1 %) 11.4 L Monocytes % (1.7 - 9.3 %) 10.2 H Eosinophils % (0 - 5 %) 3.9 Basophils % (0.0 - 2.0 %) 0.3 Absolute Granulocytes (1.4 - 6.5 /CUMM) 2.2 Absolute Lymphocytes (1.2 - 3.4 /CUMM) 0.3 L Absolute Monocytes (0.10 - 0.60 /CUMM) 0.3 Absolute Eosinophils (0.0 - 0.7 /CUMM) 0.1 Absolute Basophils (0.0 - 0.2 /CUMM) 0 PUBS MCHC (33.0 - 37.0 G/DL) 33.0 Miscellaneous Phlebotomy Draw Site LEFT RADIAL 10/04 10/03 10/03 0610 2200 1915 Chemistry Sodium (137 - 145 mmol/L) 141 Potassium (3.5 - 5.1 mmol/L) 4.5 Chloride (98 - 107 mmol/L) 106 Carbon Dioxide (22 - 30 mmol/L) 24 Anion Gap (5 - 16) 12 BUN (9 - 20 mg/dL) 44 H Creatinine (0.7 - 1.2 mg/dL) 4.4 H Estimated GFR (>60 ml/min) 13 L BUN/Creatinine Ratio (7 - 25 %) 10.0 Troponin I (<0.11 ng/ml) Cancelled < 0.01 Hematology CBC w Diff NO MAN DIFF REQ WBC (4.8 - 10.8 /CUMM) 3.7 L RBC (4.70 - 6.10 /CUMM) 2.80 L Hgb (14.0 - 18.0 G/DL) 8.2 L Hct (42 - 52 %) 25.1 L MCV (80.0 - 94.0 FL) 89.7 MCH (27.0 - 31.0 PG) 29.4 RDW (11.5 - 14.5 %) 15.1 H Plt Count (130 - 400 /CUMM) 128 L MPV (7.4 - 10.4 FL) 7.5 Gran % (42.2 - 75.2 %) 76.8 H Lymphocytes % (20.5 - 51.1 %) 10.5 L Monocytes % (1.7 - 9.3 %) 9.0 Eosinophils % (0 - 5 %) 3.5 Basophils % (0.0 - 2.0 %) 0.2 Absolute Granulocytes (1.4 - 6.5 /CUMM) 2.8 Absolute Lymphocytes (1.2 - 3.4 /CUMM) 0.4 L Absolute Monocytes (0.10 - 0.60 /CUMM) 0.3 Absolute Eosinophils (0.0 - 0.7 /CUMM) 0.1 Absolute Basophils (0.0 - 0.2 /CUMM) 0 PUBS MCHC (33.0 - 37.0 G/DL) 32.8 L 10/03/ 1659 1659 1245 Chemistry Sodium (137 - 145 mmol/L) 137 Potassium (3.5 - 5.1 mmol/L) 4.8 Chloride (98 - 107 mmol/L) 105 Carbon Dioxide (22 - 30 mmol/L) 21 L Anion Gap (5 - 16) 10 BUN (9 - 20 mg/dL) 45 H Creatinine (0.7 - 1.2 mg/dL) 4.0 H Estimated GFR (>60 ml/min) 14 L BUN/Creatinine Ratio (7 - 25 %) 11.3 Glucose (65 - 99 mg/dL) 107 H Calcium (8.4 - 10.2 mg/dL) 9.1 Phosphorus (2.5 - 4.5 mg/dL) 4.5 Magnesium (1.6 - 2.3 mg/dL) 1.9 Iron (49 - 181 ug/dL) 54 TIBC (261 - 462 ug/dL) 296 Ferritin (17.9 - 464 ng/mL) 40.4 Total Bilirubin (0.2 - 1.3 mg/dL) 0.8 AST (17 - 59 U/L) 21 ALT (21 - 72 U/L) 32 Alkaline Phosphatase (< 127 U/L) 43 Troponin I (<0.11 ng/ml) 0.01 [id number] Pept (<125 pg/mL) 9680 H Total Protein (6.3 - 8.2 g/dL) 6.6 Albumin (3.5 - 5.0 g/dL) 4.0 Globulin (1.9 - 4.2 gm/dL) 2.6 Albumin/Globulin Ratio (1.1 - 2.2 %) 1.5 Coagulation PT (9.4 - 12.5 SEC) 12.0 INR (0.90 - 1.17) 1.14 APTT (25 - 37 SEC) 34 Hematology CBC w Diff NO MAN DIFF REQ WBC (4.8 - 10.8 /CUMM) 4.0 L RBC (4.70 - 6.10 /CUMM) 2.90 L Hgb (14.0 - 18.0 G/DL) 8.5 L Hct (42 - 52 %) 25.8 L MCV (80.0 - 94.0 FL) 89.0 MCH (27.0 - 31.0 PG) 29.2 RDW (11.5 - 14.5 %) 15.9 H Plt Count (130 - 400 /CUMM) 136 MPV (7.4 - 10.4 FL) 7.1 L Gran % (42.2 - 75.2 %) 81.3 H Lymphocytes % (20.5 - 51.1 %) 8.8 L Monocytes % (1.7 - 9.3 %) 7.4 Eosinophils % (0 - 5 %) 2.1 Basophils % (0.0 - 2.0 %) 0.4 Absolute Granulocytes (1.4 - 6.5 /CUMM) 3.2 Absolute Lymphocytes (1.2 - 3.4 /CUMM) 0.3 L Absolute Monocytes (0.10 - 0.60 /CUMM) 0.3 Absolute Eosinophils (0.0 - 0.7 /CUMM) 0.1 Absolute Basophils (0.0 - 0.2 /CUMM) 0 PUBS MCHC (33.0 - 37.0 G/DL) 32.8 L Urines Urine Color Cancelled Urine Clarity Cancelled Urine pH Cancelled Ur Specific [place] Cancelled Urine Protein Cancelled Urine Ketones Cancelled Urine Nitrite Cancelled Urine Bilirubin Cancelled Urine Urobilinogen Cancelled Ur Leukocyte Esterase Cancelled Ur Microscopic Cancelled Urine Hemoglobin Cancelled Ur Random Creatinine Cancelled Ur Random Sodium Cancelled Ur Random Potassium Cancelled Fraction Sodium Excret Cancelled Urine Glucose Cancelled
[2016-10-05 17:22] VITALS: BP 170/70
--- NOTE | 2016-10-05 21:44 | RADIOLOGY REPORT ---
EXAMINATION: XR CHEST CLINICAL INFORMATION: Shortness of breath and oxygen. COMPARISON: Chest x-ray 10/03/2016. TECHNIQUE: 2 views of the chest were obtained. FINDINGS: Allowing for differences in technique, patient positioning and aeration of the lungs, single AP view of the chest demonstrates no significant interval changes in the appearance of the chest. The lungs are again noted to be hypoinflated and there is persistent elevation of the left hemidiaphragm with loops of bowel visualized beneath the left hemidiaphragm. There is also bibasilar subsegmental atelectasis. Cardiomediastinal contours are stable. There is mild central venous congestion without overt pulmonary edema. Redemonstrated are median sternotomy wires and evidence of prior CABG. No large pleural effusions or pneumothoraces are noted. IMPRESSION: Stable appearance of the chest. Otherwise, no acute pulmonary process.
[2016-10-06 00:08] VITALS: BP 148/70
--- NOTE | 2016-10-06 07:14 | ECHOCARDIOGRAM REPORT ---
IRIS DREW Age: 86 : 1930 Gender: M Exam Date: 10/05/2016 19:12 Exam Location: [place] Ht (in): 75 Wt (lb): 236 BSA: 2.40 BP: 152 / 64 Ordering Physician: JANETH CUTLER M Referring Physician: Andrea Levine MD Technologist: Gracia Betts [facility] Room Number: 189-01 Indications: HEART FAILURE Rhythm: Sinus Technical Quality: fair FINDINGS Left Ventricle Normal size left ventricle. Left ventricular wall thickness mildly increased. Normal left ventricular ejection fraction estimated at 60-65%. Right Ventricle Normal right ventricular size and function. Right Atrium Normal right atrial size. Left Atrium Mild left atrial dilatation. Mitral Valve Moderate mitral annular calcification. Iwty-op-qooyijfv mitral stenosis. Mild mitral regurgitation. Aortic Valve Diffuse thickening of the aortic valve cusps with reduced excursion. [id number] aortic stenosis. Tricuspid Valve Tricuspid valve is normal in structure and function. Mild-to- moderate tricuspid regurgitation. Right ventricular systolic pressure estimated to be elevated at60 mmHg. Pulmonic Valve Pulmonic valve not well visualized, grossly normal. Pericardium No pericardial effusion. Great Vessels Mildly dilated proximal ascending aorta (tube). CONCLUSIONS Normal left ventricular systolic function with mild concentric hypertrophy. Mild left atrial enlargement. Mild to moderate Mitral and Aortic stenosis. Moderate to severe Pulmonaru hypertension. Andrea Levine M.D. (Electronically Signed) Final Date: 06 October 2016 07:13 MEASUREMENTS (Male / Female) Normal Values 2D ECHO LV Diastolic Diameter PLAX 4.4 cm 4.2 - 5.9 / 3.9 - 5.3 cm LV Systolic Diameter PLAX 2.6 cm 2.1 - 4.0 cm LV Fractional Shortening PLAX 40.9 % 25 - 46 % LV Ejection Fraction 2D Teich 71.9 % IVS Diastolic Thickness 1.3 cm LVPW Diastolic Thickness 1.3 cm LV Relative Wall Thickness 0.6 RV Internal Dim ED PLAX 3.0 cm 1.9 - 3.8 cm LVOT Diameter 2.0 cm Aortic Root Diameter 3.2 cm LA Systolic Diameter LX 4.5 cm 3.0 - 4.0 / 2.7 - 3.8 cm LA Volume 95.0 cm 18 - 58 / 22 - 52 cm Ascending Aorta Diameter 3.9 cm DOPPLER AV Peak Velocity 242.0 cm/s AV Peak Gradient 23.4 mmHg AV Mean Velocity 173.0 cm/s AV Mean Gradient 13.0 mmHg AV Velocity Time Integral 53.9 cm LVOT Peak Velocity 120.0 cm/s LVOT Peak Gradient 5.8 mmHg LVOT Mean Velocity 78.0 cm/s LVOT Mean Gradient 3.0 mmHg LVOT Velocity Time Integral 28.9 cm LVOT Stroke Volume 90.8 cm AV Area Cont Eq vti 1.7 cm AV Area Cont Eq pk 1.6 cm MV Peak Velocity 178.0 cm/s MV Peak Gradient 12.7 mmHg MV Mean Velocity 116.0 cm/s MV Mean Gradient 6.0 mmHg Mitral E Point Velocity 183.0 cm/s Mitral A Point Velocity 145.0 cm/s Mitral E to A Ratio 1.3 MV PHT Velocity 183.0 cm/s MV Deceleration [place] 626.0 cm/s MV Pressure Half Time 87.7 ms MV Area PHT 2.5 cm MV Deceleration Time 214.0 ms MR Peak Velocity 617.0 cm/s MR Peak Gradient 152.3 mmHg MR ERO PISA 0.3 cm MR Regurgitant Volume PISA 65.2 cm TR Peak Velocity 379.0 cm/s TR Peak Gradient 57.5 mmHg Right Atrial Pressure 5.0 mmHg Pulmonary Artery Systolic Pressu 62.5 mmHg Right Ventricular Systolic Press 62.5 mmHg PV Peak Velocity 116.0 cm/s PV Peak Gradient 5.4 mmHg PV Mean Velocity 80.9 cm/s PV Mean Gradient 3.0 mmHg PV Velocity Time Integral 26.9 cm LV E' Lateral Velocity 5.6 cm/s Mitral E to LV E' Lateral Ratio 32.9 LV E' Septal Velocity 6.1 cm/s Mitral E to LV E' Septal Ratio 29.8
--- NOTE | 2016-10-06 07:29 | PN- Housestaff ---
Subjective Follow-up For: Acute on chronic CHF Complaints: no complaints Subjective: Patient is seen and examined at the bedside. He was not having any active complaints. He denies of any shortness of breath. His pain is same on left side of posterior part of chest. Review of Systems Constitutional: Denies: no symptoms. Comments: Patient denies any active complain, except pain in left side of back of chest is same as before. Objective Last 24 Hrs of Vital Signs/I&O Vital Signs Date Time Temp Pulse Resp B/P Pulse O2 O2 Flow FiO2 Ox Delivery Rate 10/05 1139 77 152/64 10/05 1138 77 152/64 10/05 1137 77 152/64 10/05 1137 77 152/64 10/05 0817 98.1 77 20 152/64 96 Nasal 4.0L Cannula 10/05 0000 94 Nasal 4.0L Cannula 10/04 2241 72 150/62 10/04 2236 75 150/62 10/04 2235 75 150/62 10/04 1650 99.0 72 18 150/62 94 Nasal 4.0L Cannula 10/04 1600 94 Nasal 4.0L Cannula Physical Exam General Appearance: Alert, Oriented X3, Cooperative Skin: area of hypopigmentation on left side of back of chest Cardiovascular: Normal S1, Normal S2 Lungs: mild basilar crackles Abdomen: Soft, No Tenderness, distended Neurological: Normal Speech Extremities: No Clubbing, No Cyanosis, No Edema Vascular: Normal Pulses, Pulses Symmetrical Current Medications: Current Medications Sig/Tiffanie Start time Last Medication Dose Route Stop Time Status Admin Acetaminophen 650 MG Q6P PRN 10/03 1900 AC PO Acetaminophen/ 1 TAB Q6P PRN 10/03 1900 AC Hydrocodone Bitart PO Amlodipine Besylate 10 MG DAILY 10/04 1000 AC 10/05 PO 1138 Atorvastatin Calcium 20 MG 1700 10/04 1700 AC 10/04 PO 1835 Cholecalciferol 1,000 IU DAILY 10/04 1000 AC 10/05 PO 1139 Docusate Sodium 100 MG BID 10/03 2200 AC 10/05 PO 1137 Docusate Sodium 100 MG BID PRN 10/03 1915 AC PO Epoetin Earnest 15,000 U EVERY 2 WEEKS 10/04 1600 AC 10/04 SC 1835 Ezetimibe 10 MG DAILY 10/04 1000 AC 10/05 PO 1139 Ferric Sodium 125 MG 1530 10/04 1530 AC 10/04 Gluconate Complex IV 10/11 1629 1835 Sodium Chloride 100 ML Ferric Sodium 125 MG DAILY 10/04 1418 CAN Gluconate Complex IV 10/11 1001 Ferrous Sulfate 325 MG BID 10/03 2200 AC 10/05 PO 1138 Furosemide 20 MG 1000,1600 10/04 1000 DC 10/04 IV 10/04 1601 1043 Heparin Sodium 5,000 UNIT Q8 10/03 1529 AC 10/05 (Porcine) SC 0558 Hydralazine HCl 100 MG BID 10/03 2200 AC 10/05 PO 1137 Hydromorphone HCl 0.5 MG Q6P PRN 10/03 1915 10/04 IV 0109 Isosorbide 90 MG DAILY 10/06 1000 AC Mononitrate PO Isosorbide 60 MG DAILY 10/04 1000 DC 10/05 Mononitrate PO 1137 Labetalol HCl 300 MG BID 10/03 220 AC 10/05 PO 1139 Levothyroxine Sodium 0.05 MG DAILY AC 10/04 0700 10/05 PO 0553 Patient Medication 1 ED .STK-MED ONE 10/04 1337 AR Teaching ED 10/04 1338 Patient Medication 1 UNIT ONE NR 10/04 1000 [facility] ED 10/04 1600 Patient Own 1 UNIT SEE ADMIN CRITERIA.. 10/04 2245 10/05 Medication TOP 1143 Polyethylene Glycol 17 GM AT BEDTIME 10/03 2199 10/04 PO 2236 Senna/Docusate Sodium 2 TAB DAILY 10/03 1540 AC 10/05 PO 1138 Last 24 Hrs of Lab/Jamel Results Last 24 Hrs of Labs/Mics: Last 24 Hrs of Labs/Mics: Laboratory Tests 10/05/16 0655: Anion Gap 12, Estimated GFR 14 L, BUN/Creatinine Ratio 10.5, CBC w Diff NO MAN DIFF REQ, RBC 2.86 L, MCV 88.7, MCH 29.3, RDW 15.4 H, MPV 7.4, Gran % 74.2, Lymphocytes % 11.4 L, Monocytes % 10.2 H, Eosinophils % 3.9, Basophils % 0.3, Absolute Granulocytes 2.2, Absolute Lymphocytes 0.3 L, Absolute Monocytes 0.3, Absolute Eosinophils 0.1, Absolute Basophils 0, PUBS MCHC 33.0 10/04/16 2150: D-Dimer 683 H 10/04/16 1855: pH 7.33 L, pCO2 41, pO2 80, HCO3 21, ABG O2 Sat (Measured) 94.0 L, Carboxyhemoglobin 1.0 L, O2 Concentration % 4L, Temperature 99.0, O2 Delivery Method NC, Phlebotomy Draw Site LEFT RADIAL Assessment/Plan Assessment: Patient is an 86-year-old male is significant past medical history of hypertension, hyperlipidemia, CAD s/p CABG,HFpEF, hypothyroidism, chronic kidney disease, chronic anemia, history of colon cancer s/p colon resection, chronic pain syndrome on nerve stimulator, ROBYN, on 1.5 liters oxygen not on CPAP, history of recent admission for CHF presented with chief complaints of chest pain and difficulty in breathing since morning. Chest x-ray -mild elevation of left hemidiaphragm with mild left basilar atelectasis, no acute cardiopulmonary abnormality Pertinent labs -hemoglobin 8.4, creatinine -4.2, proBNP -9680, first set of troponin 0.01 Plan - Sudden onset of severe shortness of breath under evaluation * We will hold lasix. * We will f/u with echo to know right atrial pressure measurement. Stage IV/V Chronic kidney disease * We will follow the recommendation of invisible braces orthodontist * We will f/u MPO/PR3 ANCA, Vascular Mapping of both upper extremeties for possible AV fistula in future * If needed we will take vascular consult for possible AV fistula CHF and pulmonary edema - * chest x-ray does not show any signs of fluid overload and pulmonary edema, ProBNP-9680, D-Dimer-683 * We will continue to monitor patient in telemetry floor * We will hold Lasix. * Strict intake output charting * We did serial EKGs/troponins were negative * We will follow cardiology rcms * we increased dose of Imdure to 90mg. * we will f/u CXR tmr Anemia of chronic disease * Hb-8.4 * We will continue erythropoietin 15,000 units every 2 weeks * We will continue patient on inj sodium ferric gluconate 125 milligrams for total 8 doses Obstructive sleep apnea/ COPD- * Patient is having history of obstructive sleep apnea and not using CPAP at Nighttime * We will follow pul. recommendation * Added Tab Prednisone 40mg x OD x 5 days. ( 10/05/16-10/10/16) Diet-renal diet with fluid restriction DVT prophylaxis -ALP S CODE STATUS -full code Problem List: 1. Acute respiratory failure with hypoxia and hypercapnia 2. Pulmonary vascular congestion 3. Obstructive sleep apnea Pain Ratin Pain Location: left side of chest Pain Goal: Remain pain free Pain Plan: moderate to sever Tomorrow's Labs & Rationales: not required as patient is discharged DVT/Prophylaxis: mechanical, pharmacological
[2016-10-06 08:01] VITALS: BP 140/70
[2016-10-06 08:20] LABS: ABSOLUTE BASOPHIL COUNT 0 /CUMM (0.0-0.2); ABSOLUTE EOSINOPHIL COUNT 0 /CUMM (0.0-0.7); ABSOLUTE GRANULOCYTE CT 2.5 /CUMM (1.4-6.5); ABSOLUTE LYMPH COUNT 0.4 /CUMM (1.2-3.4); ABSOLUTE MONOCYTE COUNT 0.3 /CUMM (0.10-0.60); BASOPHIL % 0.5 % (0.0-2.0); EOSINOPHIL % 1.2 % (0-5); GRANULOCYTE % 77.5 % (42.2-75.2); HEMATOCRIT 25.4 % (42-52); MEAN CORPUSCULAR HGB 29.3 PG (27.0-31.0); MEAN CORPUSCULAR HGB CONC 33.1 G/DL (33.0-37.0); MEAN CORPUSCULAR VOLUME 88.5 FL (80.0-94.0); MEAN PLATELET VOLUME 7.7 FL (7.4-10.4); PLATELET COUNT 128 /CUMM (130-400); RED BLOOD CELL CT 2.86 /CUMM (4.70-6.10); WHITE BLOOD CELL COUNT 3.2 /CUMM (4.8-10.8)
--- NOTE | 2016-10-06 08:53 | ULTRASOUND REPORT ---
BILATERAL UPPER EXTREMITY VENOUS MAPPING DATED 10/05/2016: INDICATION: 86-year-old male with renal failure. Vein mapping for arteriovenous fistula. COMPARISON: None TECHNIQUE: Color-flow triplex imaging with spectral analysis and compression Doppler were performed on the bilateral upper extremities. FINDINGS: RIGHT SIDE: Internal jugular vein: Patent. Subclavian vein: Patent. Axillary vein: Patent. Brachial vein: Patent. Basilic vein was patent and appear within normal limits. The diameters of the basilic vein are as follows. In the proximal upper arm 0.6 cm at a depth of 0.5 cm. In the mid upper arm 0.5 cm at 0.6 cm depth. Distal upper arm 0.5 cm and a depth of 0.7 cm. The length of the vein is greater than 4 cm. Cephalic vein was patent and within normal limits. The diameters of the cephalic vein are as follows. In the proximal upper arm it is 0.2 cm at a depth of 0.4 cm. In the mid upper arm it is 0.2 cm at a depth of 0.3 cm. In the distal upper arm it is 0.5 cm at a depth of 0.1 cm. The arterial system demonstrates no significant atherosclerotic plaque in the brachial or radial artery. The velocities measure 127 cm/s in the brachial artery, 35 cm/s in the radial artery and 64 cm/s in the ulnar artery. OTHER: Incidentally noted prominent right neck lymph nodes measuring 1.1 x 0.8 x 1.1 cm and 2.5 x 1.5 x 2.4 cm. LEFT SIDE: Internal jugular veins: Patent. Subclavian veins: Patent. Axillary veins: Patent. Brachial veins: Patent. Basilic vein was patent and appear within normal limits. The diameters of the basilic vein are as follows. In the proximal upper arm 0.4 cm at a depth of 1.5 cm. In the mid upper arm 0.4 cm at 1.3 cm depth. Distal upper arm 0.4 cm and a depth of 1.0 cm. The length of the vein is greater than 4 cm. Cephalic vein was patent and within normal limits. The diameters of the cephalic vein are as follows. In the proximal upper arm it is 0.4 cm at a depth of 0.4 cm. In the mid upper arm it is 0.5 cm at a depth of 0.2 cm. In the distal upper arm it is 0.5 cm a depth of 0.4 cm. The arterial system demonstrates no significant atherosclerotic plaque in the brachial artery and the radial artery. There is atherosclerotic plaque in the ulnar artery. The velocities measure 107 cm/s within the brachial artery, 69 cm/s in the radial artery and 72 cm/s in the ulnar artery. IMPRESSION: 1. Venous mapping and measurements as noted above. 2. Incidentally noted prominent right neck lymph nodes. Clinical correlation recommended.
[2016-10-06 09:42] VITALS: BP 176/78
--- NOTE | 2016-10-06 11:18 | PN- Cardiology ---
Subjective Subjective: Telemetry reviewed. Sinus rhythm throughout. Objective Vital Signs and I&Os Vital Signs Date Time Temp Pulse Resp B/P Pulse O2 O2 Flow FiO2 Ox Delivery Rate 10/06 0942 78 176/78 10/06 0801 98.2 78 20 140/70 92 Nasal 2.0L Cannula 10/06 0800 Nasal 2.0L Cannula 10/06 0050 95 Nasal 2.0L Cannula 10/06 0008 98.4 81 18 148/70 91 Nasal Cannula 10/06 0000 95 Nasal 2.0L Cannula 10/05 2141 83 168/80 10/05 2141 83 168/80 10/05 1722 98.1 73 18 170/70 91 Nasal 3.0L Cannula 10/05 1139 77 152/64 10/05 1138 77 152/64 10/05 1137 77 152/64 10/05 1137 77 152/64 Intake & Output 10/06 1600 10/06 0800 10/06 0000 10/05 1600 10/05 0800 10/05 0000 Intake Total 240 300 425 220 620 Output Total 300 100 582 336 1086 Balance -60 200 25 -180 -580 Intake, IV 0 100 Intake, Oral 240 300 425 220 520 Number 0 Bowel Movements Output, Urine 300 100 595 528 7183 Physical Exam: General exam patient comfortable on nasal oxygen. Admits to some mild shortness of breath but not different from his chronic condition. He is on home oxygen. Head normal carefully atraumatic Eyes sclera anicteric conjunctiva showed mild pallor extraocular muscles were normal Neck mild jugular venous distention no carotid bruits no thyroid masses no palpable nodes Chest lungs appeared clear bilaterally Heart regular rhythm with a grade 1 to 2/6 systolic murmur Abdomen soft no organomegaly bowel sounds normal Extremities no clubbing cyanosis or edema Neurological no gross motor or sensory deficits Current Medications: Current Medications Sig/Tiffanie Start time Last Medication Dose Route Stop Time Status Admin Acetaminophen 650 MG .STK-MED ONE 10/06 0027 DC PO 10/06 0028 Acetaminophen 650 MG Q6P PRN 10/03 1900 AC PO Acetaminophen/ 1 TAB Q6P PRN 10/03 1900 AC 10/06 Hydrocodone Bitart PO 0306 Amlodipine Besylate 10 MG DAILY 10/04 1000 AC 10/06 PO 0942 Atorvastatin Calcium 20 MG 1700 10/04 1700 AC 10/05 PO 1731 Cholecalciferol 1,000 IU DAILY 10/04 1000 AC 10/06 PO 0942 Docusate Sodium 100 MG BID 10/03 2200 AC 10/06 PO 0942 Docusate Sodium 100 MG BID PRN 10/03 191 PO Epoetin Earnest 15,000 U EVERY 2 WEEKS 10/04 1600 AC 10/04 SC 1835 Ezetimibe 10 MG DAILY 10/04 1000 AC 10/06 PO 0942 Ferric Sodium 125 MG 1530 10/04 1530 AC 10/05 Gluconate Complex IV 10/11 1629 1731 Sodium Chloride 100 ML Ferrous Sulfate 325 MG BID 10/03 220 AC 10/06 PO 0942 Heparin Sodium 5,000 UNIT Q8 10/03 1529 AC 10/06 (Porcine) SC 0542 Hydralazine HCl 100 MG BID 10/03 220 AC 10/06 PO 0942 Hydromorphone HCl 0.5 MG Q6P PRN 10/03 1915 AC 10/06 IV 0042 Isosorbide 90 MG DAILY 10/06 1000 AC 10/06 Mononitrate PO 0944 Isosorbide 60 MG DAILY 10/04 1000 DC 10/05 Mononitrate PO 1137 Labetalol HCl 300 MG BID 10/03 2200 AC 10/06 PO 0942 Levothyroxine Sodium 0.05 MG DAILY AC 10/04 0700 AC 10/06 PO 0542 Lidocaine 1 PAT DAILY 10/06 1017 AC EXT Patient Own 1 UNIT SEE ADMIN CRITERIA.. 10/04 2245 10/05 Medication TOP 1143 Polyethylene Glycol 17 GM AT BEDTIME 10/03 2200 AC 10/05 PO 2142 Prednisone 10 MG DAILY 10/05 1615 AC 10/06 PO 10/09 1001 0942 Senna/Docusate Sodium 2 TAB DAILY 10/03 1540 AC 10/06 PO 0942 Results Last 48 Hrs of Labs/Mics: Laboratory Tests 10/06/16 0615: Anion Gap 11, Estimated GFR 14 L, BUN/Creatinine Ratio 10.7, CBC w Diff NO MAN DIFF REQ, RBC 2.86 L, MCV 88.5, MCH 29.3, RDW 15.0 H, MPV 7.7, Gran % 77.5 H, Lymphocytes % 11.9 L, Monocytes % 8.9, Eosinophils % 1.2, Basophils % 0.5, Absolute Granulocytes 2.5, Absolute Lymphocytes 0.4 L, Absolute Monocytes 0.3, Absolute Eosinophils 0, Absolute Basophils 0, PUBS MCHC 33.1 10/05/16 0655: Anion Gap 12, Estimated GFR 14 L, BUN/Creatinine Ratio 10.5, CBC w Diff NO MAN DIFF REQ, RBC 2.86 L, MCV 88.7, MCH 29.3, RDW 15.4 H, MPV 7.4, Gran % 74.2, Lymphocytes % 11.4 L, Monocytes % 10.2 H, Eosinophils % 3.9, Basophils % 0.3, Absolute Granulocytes 2.2, Absolute Lymphocytes 0.3 L, Absolute Monocytes 0.3, Absolute Eosinophils 0.1, Absolute Basophils 0, PUBS MCHC 33.0 10/04/16 2150: D-Dimer 683 H 10/04/16 1855: pH 7.33 L, pCO2 41, pO2 80, HCO3 21, ABG O2 Sat (Measured) 94.0 L, Carboxyhemoglobin 1.0 L, O2 Concentration % 4L, Temperature 99.0, O2 Delivery Method NC, Phlebotomy Draw Site LEFT RADIAL Recent Imaging Studies: Echocardiogram Normal left ventricular systolic function with mild concentric hypertrophy. Mild left atrial enlargement. Mild to moderate Mitral and Aortic stenosis. Moderate to severe Pulmonaru hypertension. Assessment/Plan Assessment/Plan In summary this 86-year-old gentleman has the following problems, line1. Acute on chronic diastolic heart failure 2. Coronary disease by history status post coronary bypass surgery 3. Chronic stage IV renal insufficiency slightly worse with creatinine 4.4 now decreased to 3.5. 4. Chronic anemia 5. Hypertension 6. Hyperlipidemia 7. Obstructive sleep apnea His echocardiogram shows normal left radical systolic function with pulmonary hypertension probably multifactorial related to diastolic heart dysfunction, mitral stenosis. Aortic stenosis is mild to moderate. There is no objective evidence of congestive heart failure based on x-ray and his oxygen saturations are stable. I believe he could be discharged in preparation for AV fistula. Continue telemetry? Yes
--- NOTE | 2016-10-06 11:23 | PN- Nephrology ---
Assessment/Plan Assessment: Stage IV/V CKD - Mostly minimally proteinuric. Has undergone a serologic work- up during his prior admissions most notable for +p-ANCA 1:80 although MPO/PR3 not done. Has had multiple episodes of GURPREET the last of which he remains with severely impaired renal function. 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 In general, he is close to needing dialysis. It's difficult to tell if some of his symptoms of fatigue and poor appetite which stem from his last hospitalization could be considered mildly uremic (he did not have these on his presentation last time when his SCr was higher). There is no urgency to initiating dialysis at this time. I would prefer getting him discharged and seeing Dr. Cross who can get him set up with Vascular surgery for permanent access placement. We can do a vascular U/S while he's here. I spoke to the patient and his in detail about this. GURPREET - SCr slightly down again today. Oxygenation is improving without diuretics. 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 He is not volume expanded today although he will need to be monitored closely on discharge for the potential need to start a diuretic. SOB - Likely 2/2 multifactorial lung disease. Lymphadenopathy - Incidentally noted on ultrasound. Suggestion: -Cont to hold diuretics and closely monitor -MPO and PR3 ANCA -Would resend SPEP and KLFLC -Please get daily weights -Bladder scan already performed (25-40cc PVR) -Pulm/Cards consults appreciated -Vascular mapping performed -Would save non-dominant arm from BP checks, IV's, blood draws -Consider heme/onc consult for lymphadenopathy Please call [phone] with ?'s Subjective Subjective: Feeling OK SCr 4.1 No weights Underwent TTE - mild-moderate pulm HTN BP labile - 140's-170's Objective Vital Signs and I&Os Vital Signs Date Time Temp Pulse Resp B/P Pulse O2 O2 Flow FiO2 Ox Delivery Rate 10/06 0942 78 176/78 10/06 0801 98.2 78 20 140/70 92 Nasal 2.0L Cannula 10/06 0800 Nasal 2.0L Cannula 10/06 0050 95 Nasal 2.0L Cannula 10/06 0008 98.4 81 18 148/70 91 Nasal Cannula 10/06 0000 95 Nasal 2.0L Cannula 10/05 2141 83 168/80 10/05 2141 83 168/80 10/05 1722 98.1 73 18 170/70 91 Nasal 3.0L Cannula 10/05 1139 77 152/64 10/05 1138 77 152/64 10/05 1137 77 152/64 10/05 1137 77 152/64 Intake & Output 10/06 1600 10/06 0400 10/05 1600 10/05 0400 10/04 1600 10/04 0400 Intake Total 240 300 645 620 600 150 Output Total 300 764 041 7888 1075 550 Balance -60 200 -155 -580 -475 -400 Intake, IV 0 100 Intake, Oral 240 300 645 520 600 150 Number 0 Bowel Movements Output, Urine 300 336 638 5046 1075 550 Patient 236 lb Weight Physical Exam: Gen - OK appearing HEENT - JVP visible CV - RRR Chest - clear Abd - soft, nontender Ext - no edema Neuro - AOX3 Current Medications: Current Medications Sig/Tiffanie Start time Last Medication Dose Route Stop Time Status Admin Acetaminophen 650 MG .STK-MED ONE 10/06 0027 DC PO 10/06 0028 Acetaminophen 650 MG Q6P PRN 10/03 1900 AC PO Acetaminophen/ 1 TAB Q6P PRN 10/03 1900 AC 10/06 Hydrocodone Bitart PO 0306 Amlodipine Besylate 10 MG DAILY 10/04 1000 AC 10/06 PO 0942 Atorvastatin Calcium 20 MG 1700 04/04 1700 AC 10/05 PO 1731 Cholecalciferol 1,000 IU DAILY 10/04 1000 AC 10/06 PO 0942 Docusate Sodium 100 MG BID 10/03 2200 AC 10/06 PO 0942 Docusate Sodium 100 MG BID PRN 10/03 1915 AC PO Epoetin Earnest 15,000 U EVERY 2 WEEKS 10/04 1600 AC 10/04 SC 1835 Ezetimibe 10 MG DAILY 10/04 1000 AC 10/06 PO 0942 Ferric Sodium 125 MG 1530 /04 1530 AC 10/05 Gluconate Complex IV 10/11 1629 1731 Sodium Chloride 100 ML Ferrous Sulfate 325 MG BID 10/03 2200 AC 10/06 PO 0942 Heparin Sodium 5,000 UNIT Q8 10/03 1529 AC 10/06 (Porcine) SC 0542 Hydralazine HCl 100 MG BID 10/03 2199 AC 10/06 PO 0942 Hydromorphone HCl 0.5 MG Q6P PRN 10/03 1915 AC 10/06 IV 0042 Isosorbide 90 MG DAILY 10/06 1000 AC 10/06 Mononitrate PO 0944 Isosorbide 60 MG DAILY 10/04 1000 DC 10/05 Mononitrate PO 1137 Labetalol HCl 300 MG BID 10/03 2199 AC 10/06 PO 0942 Levothyroxine Sodium 0.05 MG DAILY AC 10/04 0700 AC 10/06 PO 0542 Lidocaine 1 PAT DAILY 10/06 1017 AC EXT Patient Own 1 UNIT SEE ADMIN CRITERIA.. 10/04 2245 AC 10/05 Medication TOP 1143 Polyethylene Glycol 17 GM AT BEDTIME 10/03 2199 AC 10/05 PO 2142 Prednisone 10 MG DAILY 10/05 1615 AC 10/06 PO 10/09 1001 0942 Senna/Docusate Sodium 2 TAB DAILY 10/03 1540 AC 10/06 PO 0942 Results Pertinent Lab Results: Laboratory Tests 10/06 10/05 0615 0655 Chemistry Sodium (137 - 145 mmol/L) 141 142 Potassium (3.5 - 5.1 mmol/L) 4.7 4.1 Chloride (98 - 107 mmol/L) 106 106 Carbon Dioxide (22 - 30 mmol/L) 23 23 Anion Gap (5 - 16) 11 12 BUN (9 - 20 mg/dL) 44 H 44 H Creatinine (0.7 - 1.2 mg/dL) 4.1 H 4.2 H Estimated GFR (>60 ml/min) 14 L 14 L BUN/Creatinine Ratio (7 - 25 %) 10.7 10.5 Hematology CBC w Diff NO MAN DIFF REQ NO MAN DIFF REQ WBC (4.8 - 10.8 /CUMM) 3.2 L 3.0 L RBC (4.70 - 6.10 /CUMM) 2.86 L 2.86 L Hgb (14.0 - 18.0 G/DL) 8.4 L 8.4 L Hct (42 - 52 %) 25.4 L 25.3 L MCV (80.0 - 94.0 FL) 88.5 88.7 MCH (27.0 - 31.0 PG) 29.3 29.3 RDW (11.5 - 14.5 %) 15.0 H 15.4 H Plt Count (130 - 400 /CUMM) 128 L 122 L MPV (7.4 - 10.4 FL) 7.7 7.4 Gran % (42.2 - 75.2 %) 77.5 H 74.2 Lymphocytes % (20.5 - 51.1 %) 11.9 L 11.4 L Monocytes % (1.7 - 9.3 %) 8.9 10.2 H Eosinophils % (0 - 5 %) 1.2 3.9 Basophils % (0.0 - 2.0 %) 0.5 0.3 Absolute Granulocytes (1.4 - 6.5 /CUMM) 2.5 2.2 Absolute Lymphocytes (1.2 - 3.4 /CUMM) 0.4 L 0.3 L Absolute Monocytes (0.10 - 0.60 /CUMM) 0.3 0.3 Absolute Eosinophils (0.0 - 0.7 /CUMM) 0 0.1 Absolute Basophils (0.0 - 0.2 /CUMM) 0 0 PUBS MCHC (33.0 - 37.0 G/DL) 33.1 33.0 04/10 04/ 04/ 2150 1855 0610 Blood Gas pH (7.35 - 7.45 PH) 7.33 L pCO2 (35 - 45 TORR) 41 pO2 (80 - 100 TORR) 80 HCO3 (21 - 28 MEQ/L) 21 ABG O2 Sat (Measured) (>96.0 %) 94.0 L Carboxyhemoglobin (1.5 - 5.0 %) 1.0 L O2 Concentration % 4L Temperature (97.0 - 100.0 FARH) 99.0 O2 Delivery Method NC Chemistry Sodium (137 - 145 mmol/L) 141 Potassium (3.5 - 5.1 mmol/L) 4.5 Chloride (98 - 107 mmol/L) 106 Carbon Dioxide (22 - 30 mmol/L) 24 Anion Gap (5 - 16) 12 BUN (9 - 20 mg/dL) 44 H Creatinine (0.7 - 1.2 mg/dL) 4.4 H Estimated GFR (>60 ml/min) 13 L BUN/Creatinine Ratio (7 - 25 %) 10.0 Coagulation D-Dimer (70 - 232 ng/ml) 683 H Hematology CBC w Diff NO MAN DIFF REQ WBC (4.8 - 10.8 /CUMM) 3.7 L RBC (4.70 - 6.10 /CUMM) 2.80 L Hgb (14.0 - 18.0 G/DL) 8.2 L Hct (42 - 52 %) 25.1 L MCV (80.0 - 94.0 FL) 89.7 MCH (27.0 - 31.0 PG) 29.4 RDW (11.5 - 14.5 %) 15.1 H Plt Count (130 - 400 /CUMM) 128 L MPV (7.4 - 10.4 FL) 7.5 Gran % (42.2 - 75.2 %) 76.8 H Lymphocytes % (20.5 - 51.1 %) 10.5 L Monocytes % (1.7 - 9.3 %) 9.0 Eosinophils % (0 - 5 %) 3.5 Basophils % (0.0 - 2.0 %) 0.2 Absolute Granulocytes (1.4 - 6.5 /CUMM) 2.8 Absolute Lymphocytes (1.2 - 3.4 /CUMM) 0.4 L Absolute Monocytes (0.10 - 0.60 /CUMM) 0.3 Absolute Eosinophils (0.0 - 0.7 /CUMM) 0.1 Absolute Basophils (0.0 - 0.2 /CUMM) 0 PUBS MCHC (33.0 - 37.0 G/DL) 32.8 L Miscellaneous Phlebotomy Draw Site LEFT RADIAL 10/03 10/03 10/03 10/03 2200 1915 1659 1659 Chemistry Troponin I (<0.11 ng/ml) Cancelled < 0.01 Urines Urine Color Cancelled Urine Clarity Cancelled Urine pH Cancelled Ur Specific [place] Cancelled Urine Protein Cancelled Urine Ketones Cancelled Urine Nitrite Cancelled Urine Bilirubin Cancelled Urine Urobilinogen Cancelled Ur Leukocyte Esterase Cancelled Ur Microscopic Cancelled Urine Hemoglobin Cancelled Ur Random Creatinine Cancelled Ur Random Sodium Cancelled Ur Random Potassium Cancelled Fraction Sodium Excret Cancelled Urine Glucose Cancelled 10/03 1245 Chemistry Sodium (137 - 145 mmol/L) 137 Potassium (3.5 - 5.1 mmol/L) 4.8 Chloride (98 - 107 mmol/L) 105 Carbon Dioxide (22 - 30 mmol/L) 21 L Anion Gap (5 - 16) 10 BUN (9 - 20 mg/dL) 45 H Creatinine (0.7 - 1.2 mg/dL) 4.0 H Estimated GFR (>60 ml/min) 14 L BUN/Creatinine Ratio (7 - 25 %) 11.3 Glucose (65 - 99 mg/dL) 107 H Calcium (8.4 - 10.2 mg/dL) 9.1 Phosphorus (2.5 - 4.5 mg/dL) 4.5 Magnesium (1.6 - 2.3 mg/dL) 1.9 Iron (49 - 181 ug/dL) 54 TIBC (261 - 462 ug/dL) 296 Ferritin (17.9 - 464 ng/mL) 40.4 Total Bilirubin (0.2 - 1.3 mg/dL) 0.8 AST (17 - 59 U/L) 21 ALT (21 - 72 U/L) 32 Alkaline Phosphatase (< 127 U/L) 43 Troponin I (<0.11 ng/ml) 0.01 Ezn-S-Khmcljyhndo Pept (<125 pg/mL) 9680 H Total Protein (6.3 - 8.2 g/dL) 6.6 Albumin (3.5 - 5.0 g/dL) 4.0 Globulin (1.9 - 4.2 gm/dL) 2.6 Albumin/Globulin Ratio (1.1 - 2.2 %) 1.5 Coagulation PT (9.4 - 12.5 SEC) 12.0 INR (0.90 - 1.17) 1.14 APTT (25 - 37 SEC) 34 Hematology CBC w Diff NO MAN DIFF REQ WBC (4.8 - 10.8 /CUMM) 4.0 L RBC (4.70 - 6.10 /CUMM) 2.90 L Hgb (14.0 - 18.0 G/DL) 8.5 L Hct (42 - 52 %) 25.8 L MCV (80.0 - 94.0 FL) 89.0 MCH (27.0 - 31.0 PG) 29.2 RDW (11.5 - 14.5 %) 15.9 H Plt Count (130 - 400 /CUMM) 136 MPV (7.4 - 10.4 FL) 7.1 L Gran % (42.2 - 75.2 %) 81.3 H Lymphocytes % (20.5 - 51.1 %) 8.8 L Monocytes % (1.7 - 9.3 %) 7.4 Eosinophils % (0 - 5 %) 2.1 Basophils % (0.0 - 2.0 %) 0.4 Absolute Granulocytes (1.4 - 6.5 /CUMM) 3.2 Absolute Lymphocytes (1.2 - 3.4 /CUMM) 0.3 L Absolute Monocytes (0.10 - 0.60 /CUMM) 0.3 Absolute Eosinophils (0.0 - 0.7 /CUMM) 0.1 Absolute Basophils (0.0 - 0.2 /CUMM) 0 PUBS MCHC (33.0 - 37.0 G/DL) 32.8 L Imaging/Other Studies: TTE CONCLUSIONS Normal left ventricular systolic function with mild concentric hypertrophy. Mild left atrial enlargement. Mild to moderate Mitral and Aortic stenosis. Moderate to severe Pulmonaru hypertension.
--- NOTE | 2016-10-06 11:34 | PN- Pulmonary ---
Subjective HPI/Critical Care Issues: pt seen and examined down to 2LNC doing much better feeling well no n/v/d/c no cp dyspnea returning to baseline Objective Vital Signs & I&O Last 24 Hrs of Vitals and I&O: Vital Signs Date Time Temp Pulse Resp B/P Pulse O2 O2 Flow FiO2 Ox Delivery Rate 10/06 0942 78 176/78 10/06 0801 98.2 78 20 140/70 92 Nasal 2.0L Cannula 10/06 0800 Nasal 2.0L Cannula 10/06 0050 95 Nasal 2.0L Cannula 10/06 0008 98.4 81 18 148/70 91 Nasal Cannula 10/06 0000 95 Nasal 2.0L Cannula 10/05 2141 83 168/80 04 2141 83 168/80 10/05 1722 98.1 73 18 170/70 91 Nasal 3.0L Cannula 10/05 1139 77 152/64 10/05 1138 77 152/64 10/05 1137 77 152/64 10/05 1137 77 152/64 Intake & Output 10/06 1600 10/06 0800 10/06 0000 Intake Total 240 240 300 Output Total 200 300 100 Balance 40 -60 200 Intake, Oral 240 240 300 Output, Urine 200 300 100 Exam Other Physical Findings: gen awake and alert HEENT nasal cannula present Lungs - scattered rhonchi and bibasilar crackles CVS - s1, s2, systolic murmur Abd - soft, obese, bs+ Ext with trace edema Results Last 24 Hrs of Lab Results: Laboratory Tests 10/06/16 0615: Anion Gap 11, Estimated GFR 14 L, BUN/Creatinine Ratio 10.7, CBC w Diff NO MAN DIFF REQ, RBC 2.86 L, MCV 88.5, MCH 29.3, RDW 15.0 H, MPV 7.7, Gran % 77.5 H, Lymphocytes % 11.9 L, Monocytes % 8.9, Eosinophils % 1.2, Basophils % 0.5, Absolute Granulocytes 2.5, Absolute Lymphocytes 0.4 L, Absolute Monocytes 0.3, Absolute Eosinophils 0, Absolute Basophils 0, PUBS MCHC 33.1 Impression/Plan Impression/Plan Impression/Plan: Impression 86 year old man * Dyspnea likely secondary to acute on chronic diastolic heart failure and fluid overload * Underlying CKD with a worsening creatinine with GURPREET can be contributing to fluid overload as well * History of obesity hypoventilation - declines therapy Plan - nephrology and cardiology appreciated - prednisone 40mg x 5 days total - he has pain that are indicative of neuropathic post herpetic/shingles pain - ins/outs, and diuresis if ok with nephrology - maintain o2 sats >92% - fio2 reduced - DC planning/PT eval DVT prophylaxis at all times
[2016-10-06] MEDS ORDERED: ISOSORBIDE MONO30 M1 PO (13:07)
[2016-10-06] MEDS ORDERED: PREDNISONE10 M2 PO (15:08)
[2016-10-06] MEDS ORDERED: PROCRIT20000 UNIT SC (15:08)
--- NOTE | 2016-10-06 15:25 | PN- Student ---
CHACHA NELSON 10/06/16 1503: Subjective Subjective: Mr. Martinez is a 86 year old man who was admitted on 10/03/16 for dyspnea, bilateral lower extremity edema, and a 6 pound weight gain over three days. His admission labs were significant for a pro-BNP of 9680, Creatinine of 4, and BUN of 45. PMH is significant for CHF, HTN, HLD, CAD s/p CABG x5, ROBYN with non-compliance with CPAP therapy, CKD, chronic anemia, colon cancer s/p resection, hypothyroidism, and chronic pain Yesterday, the patient had a repeat CXR per cardiology recommendations, which was stable. The patient also had an ECHO, showing new mild-moderate aortic stenosis as compared to previous ECHO in 09/2015. ECHO also revealed mild- moderate mitral stenosis, mild-moderate mitral regurgitation, mild-moderate tricuspid regurgitation, mildly dilated proximal ascending aorta, mild concentric hypertrophy, and moderate to severe pulmonary hypertension. Fluid balance for the past 24 hours is negative (-) 15 mL. The patient was in sinus rhythm to sinus tachycardia overnight, with occasional PACs and PVCs. His oxygen has been weaned to 2L nasal cannula, and he is tolerating with a saturation of 91%. He has no new complaints and states he feels better. He denies any worsening SOB. He denies CP, headache, cough, abdominal pain, nausea, vomiting, diarrhea, appetite changes, leg pain, or worsening swelling. Objective Objective: Physical exam: Vitals: Temp: 98.4 oral HR: 82 RR: 18 BP: 148/70 SpO2: 91% on 2L Nasal Cannula Neuro: Patient is A&O x4, no focal deficits HEENT: EOMI, normocephalic, atraumatic CV: regular rate, holosystolic murmur associated with carotid bruit Pulm: clear to auscultation, diminished at left base, symmetrical chest wall expansion GI: abdomen soft, non-tender, non-distended; bowel sounds present and normoactive MSK: bilateral lower extremity edema improving, moves all extremities spontaneously and without difficulty Integument: skin is warm and dry; healing Zoster depigmentation over left lateral chest and left back, sensitive to touch Peripheral vascular: all distal pulses palpable Psych: Cooperative with exam, appropriate mood and affect. Pertinent labs: BUN: 44 Cr: 4.1 all other labs stable Assessment/Plan Assessment: Dyspnea: Improving Weaning oxygen CKD: Public Information Director recommends vascular mapping for future hemodialysis planning Hold Lasix per nephrology Recommend follow up with nephrology when discharged CHF: CXR is stable Imdur increased to 90mg per cardiology recommendations Continue telemetry monitoring Strict I&O ROBYN: Follow pulmonogy recommendations Educate on and encourage use of CPAP upon discharge
--- NOTE | 2016-10-06 15:41 | PN- Att Addend ---
Attending MD Review Statement Attending Statement Attending MD Statement: examined this patient, discuss w/resident/PA/PHERESIS NURSE, agreed w/resident/PA/PHERESIS NURSE, reviewed EMR data (avail), discussed w/nursing, discussed w/ case mgmt Attending Assessment/Plan: Laboratory Tests 10/06/16 0615: Anion Gap 11, Estimated GFR 14 L, BUN/Creatinine Ratio 10.7, CBC w Diff NO MAN DIFF REQ, RBC 2.86 L, MCV 88.5, MCH 29.3, RDW 15.0 H, MPV 7.7, Gran % 77.5 H, Lymphocytes % 11.9 L, Monocytes % 8.9, Eosinophils % 1.2, Basophils % 0.5, Absolute Granulocytes 2.5, Absolute Lymphocytes 0.4 L, Absolute Monocytes 0.3, Absolute Eosinophils 0, Absolute Basophils 0, PUBS MCHC 33.1 Vital Signs Date Time Temp Pulse Resp B/P Pulse O2 O2 Flow FiO2 Ox Delivery Rate 10/06 0942 78 176/78 10/06 0801 98.2 78 20 140/70 92 Nasal 2.0L Cannula 10/06 0800 Nasal 2.0L Cannula 10/06 0050 95 Nasal 2.0L Cannula 10/06 0008 98.4 81 18 148/70 91 Nasal Cannula 10/06 0000 95 Nasal 2.0L Cannula 10/05 2141 83 168/80 04/ 2141 83 168/80 10/05 1722 98.1 73 18 170/70 91 Nasal 3.0L Cannula Patient seen and examined at bedside. Discussed with patient the care plan. Patient on lung exam does not have any crackles his lung sounds much better today. Discussed with patient the importance of using CPAP at home. Patient refuses to use CPAP even though I gave him the option of first getting him another machine . Patient is being discharged home possibly today. Case management is working on arranging an oxygen tank for him to go home as his did not bring his oxygen machine. If unable to do that we will discharge him tomorrow morning.
--- NOTE | 2016-10-11 11:58 | Discharge Summary ---
See Addendum Visit Information Visit Dates Admission Date: 10/03/16 Discharge Date: 10/06/16 Hospital Course Course Attending Physician: VÍCTOR BAIN,ROEL Abbott Primary Care Physician: TAI OSMAN APRN Hospital Course: Patient is an 86-year-old male is significant past medical history of hypertension, hyperlipidemia, CAD s/p CABG,HFpEF, hypothyroidism, chronic kidney disease, chronic anemia, history of colon cancer s/p colon resection, Post herpetic Neuralgia, chronic pain syndrome on nerve stimulator, ROBYN, on 1.5 liters oxygen not on CPAP, history of recent admission for CHF presented with chief complaints of chest pain and difficulty in breathing since one day. Pertinent labs -hemoglobin 8.4, creatinine -4.2, proBNP -9680, first set of troponin 0.01 Plan - Severe Pulmonary hypertension Secondary to Obstructive sleep apnea (non compliance of CPAP), Chronic CHF, CKD, Chronic Anemia. Patient presented with shortness of breath and incresed oxygen requirment. We did chest X ray, which showed mild elevation of left hemidiaphragm with mild left basilar atelectasis, without any evidence of acute cardiopulmonary abnormality, ProBNP-9680, [id number]-683,serial EKGs/troponins were negative.We gave one dose of IV lasix and admitted patient in telemetry and took consult from cardiology and pulmonology. According to terrazzo finisher, he is having history of sleep apnoea and advised for CPAP but he is not compliant for it despite all changes and counsellings. He is well aware of his current pulmonary status and future consequenses of not using CPAP. They advised to add tab Prednisone 40mg x OD x 5 days. ( 10/05/16-10/10/16). Cardiologists advised for echo, which showed Normal left ventricular systolic function, LVEF 60-65% with mild concentric hypertrophy, Mild left atrial enlargement, Mild to moderate Mitral and Aortic stenosis. Moderate to severe Pulmonaru hypertension (60mmHg). They increased the dose of Imdure to 90mg and advised to follow up as an outpatient. Stage IV Chronic kidney disease On Day 1 we gave one dose IV lasix which bumped up his creatinine fron 4 to 4.4. So on Day 2 we holded it and took consult from marketing support assistant.According to them he had minimal proteinuria and was P - ANCA positive in previous visit so need further serological work up including MPO/PR3 ANCA,SPEP, KLFLC and Vascular Mapping of both upper extremeties for possible AV fistula in future. We did Vascular mapping and sent all blood work up and advised patient to follow up his marketing support assistant Dr Cross, for further work up and management. Anemia of chronic disease Hb-8.4. we started him on iron supplementation and will continue inj sodium ferric gluconate 125 mgs for total 8 doses(10/04/2016 - 10/11/2016) and We will continue erythropoietin 15,000 units every 2 weeks (first dose on 10/04/2016). Advised to follow up with marketing support assistant and PCP for further management. Post Herpetic neuralgia Patient continued to have pain in left middle part of chest and there were areas of hypopigmentation. We continued all pain medication for neuralgia as before. Allergies: Coded Allergies: NO KNOWN ALLERGIES (09/28/15) Disposition Summary Disposition Principal Diagnosis: Pulmonary Hypertention - Multifactorial ( ROBYN, non compliance to CPAP, CKD, Acute on Chronic CHF, Chronic Anemia) CKD (may need dialysis in fututre) Additional Diagnosis: Hypertension, Hyperlipidemia, CAD s/p CABG,HFpEF, Hypothyroidism, Chronic kidney disease, Chronic anemia, History of colon cancer s/p colon resection, Chronic pain syndrome on nerve stimulator, ROBYN, on 1.5 liters oxygen not compliant for CPAP Discharge Disposition: home health services Discharge Instructions General Discharge Information Code Status: Full Code Patient's Diet: Heart Healthy Diet with fluid restriction, Renal diet Patient's Activity: As tolerated Follow-Up Instructions/Appts: Advised to follow-up with motor vehicle parts interpreter within a week of discharge. Advised to follow-up with marketing support assistant within a week of discharge and discuss about the blood workup-MPO,PR3 ANCA, SPEP and KLFLC and also for further evaluation for future dialysis. Advised to follow-up with PCP/ Compressor Operator within a week of discharge Advised to take the medication as advised Medications at Discharge Discharge Medications: Stop taking the following medications: Epoetin Earnest (Procrit) 20,000 UNIT/1 ML VIAL Inject into fatty tissue ONCE A WEEK Days = 30 Continue taking these medications: Ezetimibe (Zetia) 10 MG TABLET 1 Tablet ORAL DAILY Comments: Last Taken:10/06/16 Time:9:42A.M Atorvastatin Calcium (Atorvastatin Calcium) 20 MG TABLET 1 Tablet ORAL DAILY Qty = 90 Comments: Last Taken:10/05/16 Time:5:17P.M Hydralazine HCl (Hydralazine HCl) 100 MG TABLET 1 Tablet ORAL TWICE DAILY Qty = 60 Comments: Last Taken:10/06/16 Time:9:42A.M Docusate Sodium (Colace) 100 MG CAPSULE 1 Capsule ORAL TWICE DAILY Comments: Last Taken:10/06/16 Time:9:42A.M Labetalol HCl (Labetalol HCl) 300 MG TABLET 1 Tablet ORAL TWICE DAILY Qty = 60 Comments: Last Taken:10/06/16 Time:9:42A.M Sennosides (Senokot) 8.6 MG TABLET 1 Tablet ORAL DAILY Comments: Last Taken:10/06/16 Time:9:42A.M Amlodipine Besylate (Amlodipine Besylate) 10 MG TABLET 0.5 Tablet ORAL TWICE DAILY Comments: Last Taken:10/06/16 Time:9:42A.M Levothyroxine Sodium (Levothyroxine Sodium) 50 MCG TABLET 1 Tablet ORAL DAILY Qty = 30 Comments: Last Taken:10/06/16 Time:5:42A.M Cholecalciferol (Vitamin D3) (Vitamin D) 1,000 UNIT TABLET 1 Tablet ORAL DAILY Comments: Last Taken:10/06/16 Time:9:42A.M Start taking the following new medications: Isosorbide Mononitrate (Isosorbide Mononitrate ER) 30 MG TAB.ER.24H 90 Milligram ORAL DAILY Qty = 60 No Refills Comments: Last Taken:10/06/16 Time:9:44A.M Copies To: KENDY BAIN,PAPI Bird; TAI OSMAN APRN; ALISON BAIN,TANESHA Richard; GABY BAIN,CHELSEA Attending MD Review Statement Documenting Attending: VÍCTOR BAIN,ROEL Abbott
== END 2016-10-06 17:30 | disposition home health service (06) | DRG 291 ==
LOC: ENRESERVDT → ENRESERVTM → ERH 12:16 → ERHI 14:35 → 1NO 14:35 → ENPENDDIS 14:35 → 1NO 16:09
PROVIDERS: Emergency Medicine; Internal Medicine Cardiovascular Disease; Physician Assistant Medical; ADMIT Internal Medicine
DX: I13.0 Hypertensive heart and chronic kidney disease with heart failure and stage 1 through stage 4 chronic kidney disease, or unspecified chronic kidney disease (principal); J96.91 Respiratory failure, unspecified with hypoxia; N17.9 Acute kidney failure, unspecified; I50.33 Acute on chronic diastolic (congestive) heart failure; N18.4 Chronic kidney disease, stage 4 (severe); I27.2 Other secondary pulmonary hypertension; B02.23 Postherpetic polyneuropathy; E66.2 Morbid (severe) obesity with alveolar hypoventilation; Z95.1 Presence of aortocoronary bypass graft; D63.1 Anemia in chronic kidney disease; E78.5 Hyperlipidemia, unspecified; I25.10 Atherosclerotic heart disease of native coronary artery without angina pectoris; E03.9 Hypothyroidism, unspecified; Z85.038 Personal history of other malignant neoplasm of large intestine; Z87.891 Personal history of nicotine dependence; I08.0 Rheumatic disorders of both mitral and aortic valves; Z68.29 Body mass index [BMI] 29.0-29.9, adult
CPT/HCPCS: 1NSP; 84133; 84300; 36415; 82436; 82570; 84165; 93005; 93010; 93306; 93970; 97162-GP; G0365; J0885-EC; J1644; J1940; J7512

== ENCOUNTER 2016-10-26 10:46 | Emergency (ER) | payer OTHER, MEDICARE ==
[~2016-10-26] VITALS: Ht 188 cm; Wt 105.7 kg
[~2016-10-26 10:46] MED LIST changes: +ISOSORBIDE MONO30 M1 PO; +PREDNISONE10 M2 PO
[2016-10-26] MEDS ORDERED: FUROSEMIDE20 M1 PO (11:02)
[2016-10-26] MEDS ORDERED: LYRICA75 M1 PO (11:03)
[2016-10-26 11:15] LABS: ABSOLUTE BASOPHIL COUNT 0 /CUMM (0.0-0.2); ABSOLUTE EOSINOPHIL COUNT 0.1 /CUMM (0.0-0.7); ABSOLUTE GRANULOCYTE CT 3.5 /CUMM (1.4-6.5); ABSOLUTE LYMPH COUNT 0.2 /CUMM (1.2-3.4); ABSOLUTE MONOCYTE COUNT 0.3 /CUMM (0.10-0.60); BASOPHIL % 0.3 % (0.0-2.0); EOSINOPHIL % 1.9 % (0-5); GRANULOCYTE % 85.4 % (42.2-75.2); MEAN CORPUSCULAR HGB 28.5 PG (27.0-31.0); MEAN CORPUSCULAR HGB CONC 31.6 G/DL (33.0-37.0); MEAN CORPUSCULAR VOLUME 90.3 FL (80.0-94.0); MEAN PLATELET VOLUME 6.8 FL (7.4-10.4); PLATELET COUNT 135 /CUMM (130-400); RBC DISTRIBUTION WIDTH 16.9 % (11.5-14.5); RED BLOOD CELL CT 2.99 /CUMM (4.70-6.10); WHITE BLOOD CELL COUNT 4.1 /CUMM (4.8-10.8)
--- NOTE | 2016-10-26 11:21 | ED SYNCOPE COMPLAINT ---
History of Present Illness General Chief Complaint: Syncope and Near-Syncope Stated Complaint: SYNCOPLE EPISODE AT DRS OFFICE Source: patient, family, old records Exam Limitations: no limitations Vital Signs & Intake/Output Vital Signs & Intake/Output Vital Signs Date Time Temp Pulse Resp B/P B/P Pulse O2 O2 Flow FiO2 Mean Ox Delivery Rate 10/26 1252 96.8 63 20 138/62 93 Room Air 10/26 1132 93 Nasal 2.0L Cannula 10/26 1056 98.2 68 20 137/65 90 Nasal 2.0L Cannula Allergies Coded Allergies: NO KNOWN ALLERGIES (09/28/15) Reconcile Medications Amlodipine Besylate 10 MG TABLET 1 TAB PO DAILY BP (Reported) Atorvastatin Calcium 20 MG TABLET 1 TAB PO DAILY CHOLESTEROL (Reported) Cholecalciferol (Vitamin D3) (Vitamin D) 1,000 UNIT TABLET 1 TAB PO DAILY SUPPLEMENT (Reported) Docusate Sodium (Colace) 100 MG CAPSULE 1 CAP PO BID STOOL SOFTENER (Reported ) Epoetin Earnest (Procrit) 20,000 UNIT/ML VIAL 15,000 U SC EVERY 2 WEEKS anemia 1 dose every other week Ezetimibe (Zetia) 10 MG TABLET 1 TAB PO DAILY CHOLESTEROL (Reported) Ferrous Sulfate (IRON) (Unknown Strength) TABLET 2 TAB PO BID SUPPLEMENT ( Reported) Furosemide 20 MG TABLET 3 TAB PO DAILY WATER PILL (Reported) Hydralazine HCl 100 MG TABLET 1 TAB PO BID BP (Reported) Isosorbide Mononitrate (Isosorbide Mononitrate ER) 60 MG TAB.ER.24H 1 TAB PO DAILY HEART (Reported) Isosorbide Mononitrate (Isosorbide Mononitrate ER) 30 MG TAB.ER.24H 90 MG PO DAILY chest pain Labetalol HCl 300 MG TABLET 1 TAB PO BID BP (Reported) Levothyroxine Sodium 50 MCG TABLET 1 TAB PO DAILY THYROID (Reported) Pregabalin (Lyrica) 75 MG CAPSULE 1 CAP PO DAILY PAIN (Reported) Sennosides (Senokot) 8.6 MG TABLET 1 TAB PO DAILY GI (Reported) Triage Note: PT BIBA FROM 'S OFFICE, FOR LOW O2 SATS AND SYNCOPAL EPISODE. PT NORMALLY ON 1.5 L OF NC OXYGEN, BUT WAS ON 1L OF NC OXYGEN WHEN AMBULATING UP STAIRS TO 'S OFFICE WHEN HE BECAME SOB, O2 SAT DROPPED TO 77% AND PT WAS NOT RESPONDING TO . PT ARRIVES A/O X 4, O2 SAT 89% ON 2L OXYGEN. Triage Nurses Notes Reviewed? yes Timing: recent history Precipitating Factors: lightheadedness Context: became dizzy/fainted Episode Description: Syncope Loss of Consciousness: brief (seconds) Associated Symptoms: shortness of breath, weakness HPI: The morning prior to admission spouse noted four pound weight gain. To preserve portable oxygen was decreased to 1 L/m nasal cannula while walking up the stairs to doctor's appointment he became weak and collapsed. His spouse noted hypoxia with oxygen saturation of 77%. Oxygen was increased to 5 L he was aroused with oxygen saturation of 99%. He denies fever chills nausea vomiting diarrhea abdominal pain chest pain headache dysuria rash bleeding. Past History Travel History Traveled to [place] past 21 day No Medical History Any Pertinent Medical History? see below for history Neurological: shingles- left flank EENT: NONE Cardiovascular: CAD (s/p CABG x 5), diastolic CHF, hypertension, hyperlipidemia, atrial tachycardia Respiratory: pneumonia, WEARS O2 Gastrointestinal: NONE Hepatic: NONE Renal: chronic kidney disease (stage 4) Musculoskeletal: chronic back pain (implanted stimulator device), osteoarthritis Psychiatric: NONE Endocrine: hypothyroidism Blood Disorders: ANEMIA Cancer(s): colon/rectal cancer DIRECTOR OF HOTEL OPERATIONS/Reproductive: NONE History of MRSA: No History of VRE: No History of CDIFF: No Influenza Vaccine: 09/28/15 Surgical History Surgical History: CABG, colon resection (sigmoid - Diaz A colon Ca), knee replacement, nerve stimulator Psychosocial History Who do you live with Spouse Services at Home Nursing, Physical Therapy What is your primary language Mal[place]ian Tobacco Use: Quit >30 days ago ETOH Use: denies use Illicit Drug Use: denies illicit drug use Family History Family History, If Any: MOTHER, , Age 58; Cause: Colon cancer. FATHER, , Age 70; Cause: Myocardial infarction. Relation not specified for: colon cancer in mother Hx Contributory? No Review of Systems Review of Systems Constitutional: Reports: see HPI, weakness. EENTM: Reports: no symptoms. Respiratory: Reports: see HPI, short of breath. Cardiovascular: Reports: no symptoms. GI: Reports: no symptoms. Genitourinary: Reports: no symptoms. Musculoskeletal: Reports: no symptoms. Skin: Reports: no symptoms. Neurological/Psychological: Reports: see HPI, weakness. All Other Systems: Reviewed and Negative Physical Exam Physical Exam General Appearance: well developed/nourished, alert, awake, anxious, moderate distress Head: atraumatic, normal appearance Eyes: Bilateral: normal appearance, PERRL, EOMI. Ears, Nose, Throat: normal pharynx, normal ENT inspection Neck: normal inspection, supple, full range of motion, JVD, no midline tenderness Respiratory: chest non-tender, decreased breath sounds, crackles Cardiovascular: regular rate/rhythm, normal peripheral pulses, norml femoral pulses equa Gastrointestinal: normal bowel sounds, soft, non-tender, no organomegaly Back: normal inspection, normal range of motion, no vertebral tenderness Extremities: normal capillary refill, normal range of motion, pedal edema, no ligament instability Psychiatric: awake, alert, oriented x 3 Cranial Nerves: normal hearing, PERRL Coordination/Gait: normal finger to nose Motor/Sensory: no motor/sensory deficits Reflexes: 2+: bicep (R), bicep (L). Skin: intact, warm/dry, pallor Lymphatic: no anterior cervical noble Core Measures ACS in differential dx? Yes ASA ordered for poss ACS? No-ACS ruled out CVA/TIA Diagnosis: No Severe Sepsis Present: No Septic Shock Present: No Progress Differential Diagnosis: AMI, drug induced syncope, orthostatic syncope Plan of Care: Orders Procedure Date/time Status CASE MANAGEMENT CONSULT 10/26 1444 Active TROPONIN LEVEL 10/26 1101 Complete COMPREHENSIVE METABOLIC PANEL 10/26 1101 Complete CBC WITHOUT DIFFERENTIAL 10/26 1101 Complete B-TYPE NATRIURETIC PEP (BNP) 10/26 1101 Complete EKG 10/26 1054 Active Laboratory Tests 10/26/16 1105: Anion Gap 17 H, Estimated GFR 13 L, BUN/Creatinine Ratio 14.2, Glucose 112 H, Calcium 8.7, Total Bilirubin 0.8, AST 19, ALT 29, Alkaline Phosphatase 45, Troponin I 0.02, Rkw-X-Zraddoaffut Pept 9510 H, Total Protein 6.5, Albumin 4.0, Globulin 2.5, Albumin/Globulin Ratio 1.6, CBC w Diff MAN DIFF ORDERED, RBC 2.99 L, MCV 90.3, MCH 28.5, RDW 16.9 H, MPV 6.8 L, Gran % 85.4 H, Lymphocytes % 4.5 L, Monocytes % 7.9, Eosinophils % 1.9, Basophils % 0.3, Absolute Granulocytes 3.5, Absolute Lymphocytes 0.2 L, Absolute Monocytes 0.3, Absolute Eosinophils 0.1, Absolute Basophils 0, Platelet Estimate VERIFIED BY SMEAR, Poikilocytosis 1+, Basophilic Stippling SLIGHT, Anisocytosis 1+, PUBS MCHC 31.6 L Diagnostic Imaging: Viewed by Me: Radiology Read. Discussed w/RAD: Radiology Read. Radiology Impression: vascular congestion Initial ED EKG: normal axis, normal intervals, normal p-waves, normal QRS complex, normal sinus rhythm, no ST T wave changes Prior EKG: unchanged Rhythm Strip: normal sinus rhythm Comments: Hospitalization advised. Patient refuses. Made aware of risk and complication he and spouse acknowledge and accept. Departure Departure Time of Disposition: 1442 Disposition: HOME OR SELF CARE Condition: Stable Clinical Impression Primary Impression: Volume overload Secondary Impressions: End stage renal disease, Syncope and collapse Referrals: TAI OSMAN APRN (PCP/Family) TANESHA ROSAS MD Departure Forms: Customer Survey General Discharge Information
--- NOTE | 2016-10-26 12:46 | RADIOLOGY REPORT ---
EXAMINATION: XR PORTABLE CHEST CLINICAL INFORMATION: Rales, hypoxia. Presumptive diagnosis: CHF. COMPARISON: Portable AP erect view of the chest is obtained. TECHNIQUE: Portable AP erect view of the chest was obtained. FINDINGS: There is persistent moderate elevation of the left hemidiaphragm and adjacent mild left base atelectasis. There is stable mild central vascular prominence without overt edema. There are stable mild increased interstitial markings in the right lower lung field. There are no other interval changes. IMPRESSION: Stable chronic findings. This includes mild central vascular congestion without overt edema.
[2016-10-26 15:04] VITALS: BP 135/84
== END 2016-10-26 15:05 ==
LOC: ERH 10:46
PROVIDERS: Emergency Medicine
DX: E87.70 Fluid overload, unspecified (principal); N18.6 End stage renal disease; R55 Syncope and collapse; I10 Essential (primary) hypertension; I50.9 Heart failure, unspecified; E03.9 Hypothyroidism, unspecified; D64.9 Anemia, unspecified
CPT/HCPCS: 93005; 93010; 96374; J1940

== ENCOUNTER 2016-10-28 16:30 | Inpatient (IN) | payer OTHER, MEDICARE ==
[~2016-10-28] VITALS: Ht 190.5 cm; Wt 101.6 kg
--- NOTE | 2016-10-28 16:33 | NUR ---
O2 SAT 93% ON 3L PULSE 71
[2016-10-28] MEDS ORDERED: PROCRIT40000 UNIT SC (17:12)
--- NOTE | 2016-10-28 17:13 | NUR ---
RECIEVED TO ROOM 16 VIA WHEELCHAIR
[2016-10-28] MEDS ORDERED: LASIX80 M1 PO (17:14)
[2016-10-28] MEDS ORDERED: CALCITRIOL0.25 MC1 PO (17:16)
[2016-10-28] MEDS ORDERED: GABAPENTIN300 M2 PO (17:16)
--- NOTE | 2016-10-28 17:40 | NUR ---
LABS DRAWN BY DIONICIO NGUYEN. IV STARTED BY DIONICIO NGUYEN.
[2016-10-28 17:41] LABS: ABSOLUTE BASOPHIL COUNT 0 /CUMM (0.0-0.2); ABSOLUTE EOSINOPHIL COUNT 0.1 /CUMM (0.0-0.7); ABSOLUTE GRANULOCYTE CT 3.2 /CUMM (1.4-6.5); ABSOLUTE LYMPH COUNT 0.3 /CUMM (1.2-3.4); ABSOLUTE MONOCYTE COUNT 0.4 /CUMM (0.10-0.60); BASOPHIL % 0.1 % (0.0-2.0); EOSINOPHIL % 2.1 % (0-5); GRANULOCYTE % 79.4 % (42.2-75.2); HEMATOCRIT 27.5 % (42-52); MEAN CORPUSCULAR HGB 28.9 PG (27.0-31.0); MEAN CORPUSCULAR HGB CONC 31.7 G/DL (33.0-37.0); MEAN CORPUSCULAR VOLUME 91.2 FL (80.0-94.0); MEAN PLATELET VOLUME 7.2 FL (7.4-10.4); PLATELET COUNT 139 /CUMM (130-400); RBC DISTRIBUTION WIDTH 16.9 % (11.5-14.5); RED BLOOD CELL CT 3.01 /CUMM (4.70-6.10); WHITE BLOOD CELL COUNT 4.1 /CUMM (4.8-10.8)
--- NOTE | 2016-10-28 17:44 | NUR ---
PT WITH SATS 90-91% ON 2 LITERS. O2 INCREASED TO 4 LITERS. SATS 94% ON 4L
--- NOTE | 2016-10-28 18:02 | NUR ---
CRITICAL TEST RESULTS [id number] IRIS DREW SR 86 M TESTS AND RESULTS: CREATININE 5.4 Results received and read back by: DEMARIO PRADO Results received date and time: 10/28/16 1803 The following provider was notified of the results, and read the results back: CLAYTON SUN Notified date and time: 10/28/16 at 1803
--- NOTE | 2016-10-28 18:08 | ED DYSPNEA/ASTHMA COMPLAINT ---
History of Present Illness General Chief Complaint: Dyspnea (COPD, CHF, Other) Stated Complaint: DIFFICULTY BREATHING H/O CHF Source: patient Exam Limitations: no limitations Vital Signs & Intake/Output Vital Signs & Intake/Output Vital Signs Date Time Temp Pulse Resp B/P B/P Pulse O2 O2 Flow FiO2 Mean Ox Delivery Rate 10/30 1400 109/56 10/30 1006 140/80 10/30 1004 80 140/80 10/30 0854 95 Nasal 60% Cannula 10/30 0853 98.0 80 20 140/80 95 Nasal Cannula 10/30 0800 96 Nasal 65% Cannula 10/30 0611 98 Nasal 60% Cannula 10/30 0049 94 Nasal 60% Cannula 10/30 0008 98.7 73 20 130/90 93 CPAP 10/30 0000 94 Nasal 60% Cannula 10/29 2125 65 138/70 10/29 1918 93 Nasal 65% Cannula 10/29 1747 98.9 86 22 148/80 97 Nasal Cannula ED Intake and Output 10/30 0000 10/29 1200 Intake Total 760 240 Output Total 750 350 Balance 10 -110 Intake, IV 20 Intake, Oral 740 240 Output, Urine 750 350 Patient 248 lb Weight Weight Briana Lift Measurement Method Allergies Coded Allergies: NO KNOWN ALLERGIES (09/28/15) Triage Note: TRIAGE: TO ED FOR INCREASED SOB, WITH HX CHF. SEEN HERE MONDAY AND MEDICATED WITH IV LASIX. BUTTON DECORATING MACHINE OPERATOR IS DR AUSTIN. REPORTS INCREASING WEIGHT GAIN AND MINIMAL URINARY OUTPUT. O2 SAT 94% ROOM AIR, NORMALLY ON 2L NC. REPORTS "FEELING FUNNY" MIDSTERNAL CHEST, DENIES PAIN. AAOX3. AFEBRILE Triage Nurses Notes Reviewed? yes Onset: Gradual Duration: getting worse Timing: recent history Severity: severe Activities at Onset: activity HPI: Patient is a 86-year-old male with past medical history of hypertension, hyperlipidemia, CAD status post CABG, hypothyroidism, CKD, anemia, colon cancer status post colon resection, chronic pain, osteoarthritis currently is on 2 L of oxygen nasal cannula at home in which earlier this month in October patient was admitted to [facility] for concerns of fluid overload secondary to chronic kidney disease and inadequate diuresis and CHF and pulmonary edema and sleep apnea. Patient did present to the emergency room 2 days ago for concerns of a presyncopal episode and over fluid and edema in his lungs and legs in which she was administered IV Lasix and patient was discharged home. Patient presents to the emergency room stating that with his 80 mg of Lasix he is having an 8 pound weight gain in the past week and decreased urine output. Patient denies any fevers chills chest pain arm pain and jaw pain nausea vomiting testicular pain or swelling or abdominal pain. (CORINNE ARNOLD,MAR) Reconcile Medications Amlodipine Besylate 10 MG TABLET 0.5 TAB PO BID BP (Reported) Atorvastatin Calcium 20 MG TABLET 1 TAB PO DAILY CHOLESTEROL (Reported) Calcitriol 0.25 MCG CAPSULE 1 CAP PO AT BEDTIME KIDNEY DISEASE, HYPOCALCEMIA (Reported) Cholecalciferol (Vitamin D3) (Vitamin D) 1,000 UNIT TABLET 1 TAB PO DAILY SUPPLEMENT (Reported) Docusate Sodium (Colace) 100 MG CAPSULE 1 CAP PO BID STOOL SOFTENER (Reported ) Epoetin Earnest (Procrit) 40,000 UNIT/ML VIAL 40,000 UNIT SC Q2W ANEMIA ( Reported) Ezetimibe (Zetia) 10 MG TABLET 1 TAB PO DAILY CHOLESTEROL (Reported) Ferrous Sulfate (Feosol) 325 MG (65 MG IRON) TABLET 2 TAB PO BID ANEMIA ( Reported) Furosemide (Lasix) 80 MG TABLET 1 TAB PO AD DIURETIC (Reported) Gabapentin 300 MG CAPSULE 1 CAP PO QPM NERVE PAIN (Reported) Hydralazine HCl 100 MG TABLET 1 TAB PO BID BP (Reported) Isosorbide Mononitrate (Isosorbide Mononitrate ER) 30 MG TAB.ER.24H 90 MG PO DAILY chest pain Labetalol HCl 300 MG TABLET 1 TAB PO BID BP (Reported) Levothyroxine Sodium 50 MCG TABLET 1 TAB PO DAILY THYROID (Reported) Sennosides (Senokot) 8.6 MG TABLET 1 TAB PO DAILY GI (Reported) (LIYAH BAIN,EASTON Tiwari) Past History Travel History Traveled to [place] past 21 day No Medical History Any Pertinent Medical History? see below for history Neurological: shingles- left flank EENT: NONE Cardiovascular: CAD (s/p CABG x 5), diastolic CHF, hypertension, hyperlipidemia, atrial tachycardia Respiratory: pneumonia, WEARS O2 Gastrointestinal: NONE Hepatic: NONE Renal: chronic kidney disease (stage 4) Musculoskeletal: chronic back pain (implanted stimulator device), osteoarthritis Psychiatric: NONE Endocrine: hypothyroidism Blood Disorders: ANEMIA BLOOD TRANSFUSIONS Cancer(s): colon/rectal cancer BI DATA MODELER/Reproductive: NONE History of MRSA: No History of VRE: No History of CDIFF: No Surgical History Surgical History: CABG, colon resection (sigmoid - Diaz A colon Ca), knee replacement, nerve stimulator Psychosocial History Who do you live with Spouse Services at Home Nursing, Physical Therapy What is your primary language Uzbek Tobacco Use: Quit >30 days ago ETOH Use: denies use Illicit Drug Use: denies illicit drug use Family History Family History, If Any: MOTHER, , Age 58; Cause: Colon cancer. FATHER, , Age 70; Cause: Myocardial infarction. Relation not specified for: colon cancer in mother Hx Contributory? No (MAR ABBOTT) Review of Systems Review of Systems Constitutional: Reports: see HPI. EENTM: Reports: no symptoms. Respiratory: Reports: see HPI. Cardiovascular: Reports: see HPI, peripheral edema. GI: Reports: no symptoms. Genitourinary: Reports: no symptoms. Musculoskeletal: Reports: no symptoms. Skin: Reports: see HPI. Neurological/Psychological: Reports: no symptoms. Hematologic/Endocrine: Reports: no symptoms. Immunologic/Allergic: Reports: no symptoms. All Other Systems: Reviewed and Negative (MAR ABBOTT) Physical Exam Physical Exam General Appearance: no apparent distress, obese Head: atraumatic Eyes: Bilateral: normal appearance. Ears, Nose, Throat: normal ENT inspection, hearing grossly normal Neck: normal inspection Respiratory: crackles Cardiovascular: regular rate/rhythm Peripheral Pulses: 2+ dorsalis pedis (R), 2+ dorsalis pedis (L) Gastrointestinal: normal bowel sounds, soft, non-tender, no organomegaly Extremities: BILATERAL +3 PITTING EDEMA Neurologic/Psych: awake, alert, oriented x 3 Skin: intact, normal color Core Measures ACS in differential dx? Yes Severe Sepsis Present: No Septic Shock Present: No (MAR ABBOTT) Progress Differential Diagnosis: asthma, AMI, bronchitis, costochondritis, CHF, COPD, musculoskeletal pain, pericarditis, pulmonary embolism, pneumonia, pneumothorax, rib fracture, unstable angina, GURPREET Plan of Care: Orders Procedure Date/time Status CBC WITHOUT DIFFERENTIAL 10/31 599 Active BASIC ELECTROLYTES PLUS BUN&CR 10/31 599 Active THERAPIST ORDERS 10/29 UNK Complete Patient Safety Monitor 10/29 UNK Active Current Medications Sig/Tiffanie Start time Last Medication Dose Stop Time Status Admin Albuterol Sulfate 3 ML BID 10/29 2200 AC 10/30 (Proventil) 0852 Calcitriol 0.25 MCG AT BEDTIME 10/29 2199 AC 10/29 (Rocaltrol 0.25 Mcg 2124 Cap) Furosemide 100 MG Q8 10/29 2199 AC 10/30 (Lasix) 1407 Gabapentin 100 MG QPM 10/29 2199 AC 10/29 (Neurontin) 2124 Amlodipine Besylate 10 MG DAILY 10/29 1000 AC 10/30 (Norvasc) 100 Atorvastatin Calcium 20 MG DAILY 10/29 1000 AC 10/30 (Lipitor) 1006 Cholecalciferol 1,000 IU DAILY 10/29 1000 AC 10/30 (Vitamin D) 1006 Docusate Sodium 100 MG BID 10/29 1000 AC 10/30 (Colace) 1006 Isosorbide 90 MG DAILY 10/29 1000 AC 10/30 Mononitrate 1006 (Imdur) Levothyroxine Sodium 0.05 MG DAILY 10/29 1000 AC 10/30 (Synthroid) 1006 Prednisone 40 MG DAILY 10/29 1000 AC 10/30 1004 Senna/Docusate Sodium 1 TAB BID 10/29 1000 AC 10/30 (Senokot S) 1005 Acetaminophen 650 MG Q6P PRN 10/28 223 AC (Tylenol) Ferrous Sulfate 325 MG BID 10/28 222 AC 10/30 (Feosol) 1006 Labetalol HCl 300 MG BID 10/29 2219 AC 10/30 (Trandate) 1004 Heparin Sodium 5,000 UNIT Q8 10/28 2214 AC 10/30 (Porcine) 1358 Laboratory Tests 10/30/16 0610: Anion Gap 16, Estimated GFR 8 L, BUN/Creatinine Ratio 15.2, CBC w Diff MAN DIFF ORDERED, RBC 2.82 L, MCV 90.9, MCH 29.1, RDW 16.6 H, MPV 8.0, Gran % 86.1 H, Lymphocytes % 5.4 L, Monocytes % 8.3, Eosinophils % 0.2, Basophils % 0 L, Absolute Granulocytes 3.7, Absolute Lymphocytes 0.2 L, Absolute Monocytes 0.4, Absolute Eosinophils 0, Absolute Basophils 0, Platelet Estimate VERIFIED BY SMEAR, Polychromasia 1+, Basophilic Stippling 1+, Anisocytosis 1+, PUBS MCHC 32.0 L Patient on initial examination showing no signs of respiratory distress however did have audible crackles upon respiratory examination. 4 L of nasal cannula was place axis saturation 93%. Patient on blood work does show concerns of acute on chronic renal failure From previous echocardiogram performed earlier this month patient had a 60% ejection fracture I initially discussed patient with office machines sales representative Dr. Gil who advised patient to receive IV 100 mg of Lasix and IV Lasix drip, I then discussed admission and patient with set up mechanic heading machines who advised patient to be given IV 100 mg of Lasix bolus and to not administer the Lasix drip and to provide patient with 3 times a day IV Lasix to improve fluid overload most likely due to kidney failure. Discussed admission with Dr. Lucas and Dr. Guillen Patient will be admitted to telemetry. (MAR ABBOTT) Diagnostic Imaging: Viewed by Me: Radiology Read. Radiology Impression: SEE COMMENTS Initial ED EKG: SINUS RHYTHM 72 BPM Comments: PATIENT: IRIS DREW SR PRESENT AGE: 86 PATIENT ACCOUNT NO: [id number] : 31 LOCATION: [facility] ORDERING PHYSICIAN: KRZYSZTOF LUCAS MD SERVICE DATE: 10/28/16 EXAM TYPE: RAD - XRY-PORTABLE CHEST XRAY EXAMINATION: CHEST 1 VIEW CLINICAL INFORMATION: Shortness of breath. Crackles at lung bases. COMPARISON: 10/26/2016. TECHNIQUE: An AP view of the chest is provided. FINDINGS: The cardiac silhouette is enlarged, but stable. Intact midline sternal wires are present. There is marked elevation of the left hemidiaphragm, unchanged from prior exams. There is atelectasis at the left lung base. There is mild interstitial prominence which could correspond to mild vascular congestion. The osseous structures are stable. IMPRESSION: Stable cardiomegaly with likely mild vascular congestion. Persistent elevation of the left hemidiaphragm with left lower lobe atelectasis. (MAR ABBOTT) Departure Departure Disposition: STILL A PATIENT Condition: Critical Clinical Impression Primary Impression: Renal failure Secondary Impressions: CHF (congestive heart failure), Pleural effusion, Pulmonary vascular congestion, Volume overload Referrals: TAI OSMAN APRN (PCP/Family) Departure Forms: Customer Survey General Discharge Information Admission Note Spoke With: YOUSUF ANDERSON MDMoon Documentation of Exam: Documentation of any treatments & extenuating circumstances including Concerns Regarding Discharge (functional status, medication knowledge or non-compliance, living conditions, etc.) that warrant an admission rather than observation: [ Discussed patient with who agrees with telemetry admission for concerns of fluid overload most likely due to kidney failure. Patient requires IV Lasix, monitoring of ins and outs, nephrology consultation, cardiology consultation telemetry monitoring and repeat labs and possible dialysis. Outpatient treatment at this time due to critical findings would be medically harmful.] (MAR ABBOTT) PA/SCALLOPER Co-Sign Statement Statement: ED Attending supervision documentation- [] I saw and evaluated the patient. I have also reviewed all the pertinent lab results and diagnostic results. I agree with the findings and the plan of care as documented in the PA's/SCALLOPER's documentation. [x] I have reviewed the ED Record and agree with the PA's/SCALLOPER's documentation. [] Additions or exceptions (if any) to the PAs/SCALLOPER's note and plan are summarized below: [] (LIYAH BAIN,EASTON Tiwari) PA/SCALLOPER Co-Sign Statement Statement: ED Attending supervision documentation- [] I saw and evaluated the patient. I have also reviewed all the pertinent lab results and diagnostic results. I agree with the findings and the plan of care as documented in the PA's/SCALLOPER's documentation. [x] I have reviewed the ED Record and agree with the PA's/SCALLOPER's documentation. [] Additions or exceptions (if any) to the PAs/SCALLOPER's note and plan are summarized below: [] (JOANN BAIN,KRZYSZTOF Silva) Critical Care Note Critical Care Note Critical Care Time: 30-74 min (MAR ABBOTT) harmful.] (MAR ABBOTT) PA/SCALLOPER Co-Sign Statement Statement: ED Attending supervision documentation- [] I saw and evaluated the patient. I have also reviewed all the pertinent lab results and diagnostic results. I agree with the findings and the plan of care as documented in the PA's/SCALLOPER's documentation. [x] I have reviewed the ED Record and agree with the PA's/SCALLOPER's documentation. [] Additions or exceptions (if any) to the PAs/SCALLOPER's note and plan are summarized below: [] (LIYAH BAIN,EASTON Tiwari) Critical Care Note Critical Care Note Critical Care Time: 30-74 min (MAR ABBOTT)
--- NOTE | 2016-10-28 18:52 | NUR ---
INFORMED PT AND OF PLAN TO PLACE CHAPPELL AND GIVE LASIX. REFUSING TO LET US GIVE LASIX AT PRESENT. SHE WANTS US TO SPEAK WITH DR ROSAS -INKER MACHINE FIRST. CONCERNS AND REFUSAL COMMUNICATED TO MAR SUN
--- NOTE | 2016-10-28 19:20 | NUR ---
CHAPPELL PLACED WITHOUT DIFFICULTY. APPROX 125CC OUTPUT WHEN CHAPPELL PLACED
--- NOTE | 2016-10-28 20:02 | NUR ---
HOSPITALIST IN TO SEE PT AND AND DISCUSS PLAN OF CARE
--- NOTE | 2016-10-28 20:18 | NUR ---
PT / AGREE TO PLAN FOR IV LASIX 100MG. AWARE HE IS BEING ADMITTED TO TELE UNIT.
--- NOTE | 2016-10-28 21:35 | NUR ---
PT GOING TO ROOM 173-1.
--- NOTE | 2016-10-28 22:00 | History & Physical ---
MARTIN BAIN,[facility] 10/28/16 2200: General Information and [facility] MD Statement: I have seen and personally examined IRIS MARTINEZ SR and documented this H&P. The patient is a 86 year old M who presented with a patient stated chief complaint of [decreased urine output and 8 pounds weight gain in one week]. Source of Information: patient, family, old records Exam Limitations: no limitations, poor historian History of Present Illness: Mr. Martinez is 86 year old male with past medical history significant for hypertension, hyperlipidemia, coronary artery disease status post CABG, HFPEF ( Echo October 06, 2016 LVEF 60-65%) ,hypothyroidism, chronic anemia, CKD, colon cancer status post colon resection, chronic pain, osteoarthritis, chronic pain syndrome on nerve stimulator, obstructive sleep apnea on nocturnal oxygen 2 L ( refused CPAP) who presented to ED with chief complaint of decreased urine output and weight gain of 8 pounds over one week. Patient was BIBA on Monday10/26/16 after he lost his consciousness upon exertion with drop in oxygen saturation to 77 while on 2 L oxygen. At that time patient received IV Lasix and was discharged home. According to the who is the primary caregiver, patient has decreased urine output over the last 3 days and he gained 8 pounds over 1 week (usual weight 230 Ib and now it's 238 Ib) despite oral Lasix 80 mg daily. Patient is following with Dr. Wolff counter former and has no CHF clinic follow-up. Patient denied any abdominal pain , dysuria, change in color of urine. Denied any chest pain, palpitation, cough, difficulty breathing although for the last week he has been using 2 L oxygen throughout the day instead of nocturnal. Patient has history of CKD and follow with complaint clerk Dr. Zack Cross in [place], recent recommendation for Lasix every other day given worsening kidney function but the patient has been taking Lasix daily. reported a.m. high blood pressure systolic 170-160, patient denied any headache, visual changes, dizziness although he has been fatigued for the last 2 weeks. Patient has home physical therapist and has been doing well with that according to the but his general ambulation is less than normal for the last 2 weeks. Patient denied fever, chills, joint pain, muscle pain. Allergies/Medications Allergies: Coded Allergies: NO KNOWN ALLERGIES (09/28/15) Home Med list Amlodipine Besylate 10 MG TABLET 0.5 TAB PO BID BP (Reported) Atorvastatin Calcium 20 MG TABLET 1 TAB PO DAILY CHOLESTEROL (Reported) Calcitriol 0.25 MCG CAPSULE 1 CAP PO AT BEDTIME KIDNEY DISEASE, HYPOCALCEMIA (Reported) Cholecalciferol (Vitamin D3) (Vitamin D) 1,000 UNIT TABLET 1 TAB PO DAILY SUPPLEMENT (Reported) Docusate Sodium (Colace) 100 MG CAPSULE 1 CAP PO BID STOOL SOFTENER (Reported ) Epoetin Earnest (Procrit) 40,000 UNIT/ML VIAL 40,000 UNIT SC Q2W ANEMIA ( Reported) Ezetimibe (Zetia) 10 MG TABLET 1 TAB PO DAILY CHOLESTEROL (Reported) Ferrous Sulfate (Feosol) 325 MG (65 MG IRON) TABLET 2 TAB PO BID ANEMIA ( Reported) Furosemide (Lasix) 80 MG TABLET 1 TAB PO AD DIURETIC (Reported) Gabapentin 300 MG CAPSULE 1 CAP PO QPM NERVE PAIN (Reported) Hydralazine HCl 100 MG TABLET 1 TAB PO BID BP (Reported) Isosorbide Mononitrate (Isosorbide Mononitrate ER) 30 MG TAB.ER.24H 90 MG PO DAILY chest pain Labetalol HCl 300 MG TABLET 1 TAB PO BID BP (Reported) Levothyroxine Sodium 50 MCG TABLET 1 TAB PO DAILY THYROID (Reported) Sennosides (Senokot) 8.6 MG TABLET 1 TAB PO DAILY GI (Reported) Past History Travel History Traveled to [place] past 21 day No Medical History Neurological: shingles- left flank EENT: NONE Cardiovascular: CAD (s/p CABG x 5), diastolic CHF, hypertension, hyperlipidemia, atrial tachycardia Respiratory: pneumonia, WEARS O2 Gastrointestinal: NONE Hepatic: NONE Renal: chronic kidney disease (stage 4) Musculoskeletal: chronic back pain (implanted stimulator device), osteoarthritis Psychiatric: NONE Endocrine: hypothyroidism Blood Disorders: ANEMIA BLOOD TRANSFUSIONS Cancer(s): colon/rectal cancer 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 FATHER, , Age 70; Cause: Myocardial infarction. Relation not specified for: colon cancer in mother Psychosocial History Services at Home: Nursing, Physical Therapy Primary Language: Arabic Smoking Status: Former Smoker ETOH Use: denies use Illicit Drug Use: denies illicit drug use Living Will? yes Power of Master Barber/HCP? unknown Functional Ability ADLs Independent: dressing, eating, toileting, bathing. Ambulation: independent IADLs Independent: shopping, housework, finances, food prep, telephone, transportation , medication admin. Review of Systems Review of Systems Constitutional: Reports: see HPI. Exam & Diagnostic Data Last 24 Hrs of Vital Signs/I&O Vital Signs Date Time Temp Pulse Resp B/P B/P Pulse O2 O2 Flow FiO2 Mean Ox Delivery Rate 10/29 0047 98.6 73 18 156/70 91 Nasal Cannula 10/28 2210 97.1 75 18 145/67 91 Nasal 5.0L Cannula 10/28 2036 97.1 77 18 144/65 93 Nasal 4.0L Cannula 10/28 1841 97.6 72 18 11/53 93 Nasal 4.0L Cannula 10/28 1840 97.5 72 18 118/53 93 Nasal 4.0L Cannula 10/28 1745 94 Nasal 4.0L Cannula 10/28 1653 98.4 74 22 121/57 94 Room Air Intake & Output 10/29 0800 10/29 0000 10/28 1600 Intake Total Output Total 425 Balance -425 Output, Urine 425 Patient 107.955 kg Weight Weight Reported by Patient Measurement Method Physical Exam General Appearance Alert, Oriented X3, Cooperative, No Acute Distress Skin No Rashes, No Breakdown, No Significant Lesion Skin Temp/Moisture Exam: Warm/Dry Sepsis Skin Exam (color): Normal for Ethnicity HEENT Atraumatic, PERRLA, EOMI, Mucous Membr. moist/pink Neck Supple Cardiovascular Regular Rate, Normal S1, Normal S2, systolic murmur 3/6 at 5th left ICS Lungs diffuse wheeze and ronchi, no basal crackle was noted Abdomen Normal Bowel Sounds, Soft, No Tenderness Neurological Normal Gait, Normal Speech, Strength at 5/5 X4 Ext, Normal Tone, Sensation Intact, Cranial Nerves 3-12 NL, Reflexes 2+ Extremities No Clubbing, No Cyanosis, Normal Pulses, BLLE pedal edema +1 Assessment/Plan Assessment: Mr. Martinez is 86 year old male with past medical history significant for hypertension, hyperlipidemia, coronary artery disease status post CABG, HFPEF ( Echo October 06, 2016 LVEF 60-65%) ,hypothyroidism, chronic anemia, CKD, colon cancer status post colon resection, chronic pain, osteoarthritis, chronic pain syndrome on nerve stimulator, obstructive sleep apnea on nocturnal oxygen 2 L ( refused CPAP) who presented to ED with chief complaint of decreased urine output and weight gain of 8 pounds over one week. On admission Vitals 98.4, pulse 74, blood pressure 121/57, respiratory rate 20 on room air saturation 94% Labs WBC 4.1, H&H 8.7/27.5, platelet 159, sodium 137, potassium 4.9, chloride 97 , bicarbonate 25, BUN/creatinine 80/5.4, liver function within normal, P BNP 41254, urine clean Chest x-ray revealed Stable cardiomegaly with likely mild vascular congestion. Persistent elevation of the left hemidiaphragm with left lower lobe atelectasis. Problem list #CHF exacerbation #Acute hypoxic respiratory failure due to hypoventilation syndrome, CHF exacerbation #Chronic kidney disease (worsening kidney function stage V) #Chronic anemia in setting of CKD #Carotid artery disease status post CABG, hypertension, hyperlipidemia #Chronic back pain #Hypothyroidism #CHF exacerbation -Patient has history of diastolic congestive heart failure (Echo October 06, 2016 LVEF 60-65%) associated with Mild to moderate Mitral and Aortic stenosis. Moderate to severe Pulmonaru hypertension. -Patient is compliant with oral Lasix 80 mg daily however he continued to gain weight 8 pounds in 7 days. Patient presented with decreased urine output on oral Lasix however when he was in the ED on Wednesday 10/25 and received IV Lasix he diuresed 1300 mL over less than 24 hours -Patient is not following with CHF clinic -Patient received 100 mg of furosemide IV in ED -Admit patient to telemetry floor -Lasix IV 80 mg 3 times a day -Cardiology consultation -Daily weight measurement -Strict in and out -Ensure CHF clinic follow-up after discharge #Acute hypoxic respiratory failure due to hypoventilation syndrome, CHF exacerbation -Increase oxygen requirement in terms of using 2 L of oxygen during the day instead of nuctornal -Continue oxygen supplementation and keep saturation more than 92% -No indication for steroid treatment -TRC as needed #Chronic kidney disease (worsening kidney function stage V) -Baseline creatinine 4.12 4.5 -On admission creatinine 5.4 -In setting of IV Lasix 80 mg 3 times a day, monitor kidney function -Consider nephrology consultation for possible dialysis -History of hemodialysis in the past -Continue vitamin D 3 and calcitriol #Chronic anemia in setting of CKD -On admission H&H 8.7/27.5 -Keep hemoglobin more than 8 -Continue Epogen alpha 40.000 unit subcutaneous every 2 weeks -Continue ferrous sulfate 2 tabs by mouth twice a day -Heme occult stool #Carotid artery disease status post CABG, hypertension, hyperlipidemia -Continue amlodipine 10 mg daily -Continue hydralazine 100 mg by mouth twice a day -Continue isosorbide mononitrate 90 mg daily -Continue labetalol 100 mg twice a day -Continue atorvastatin 20 mg daily -Continue ezetimibe 10 mg daily #Chronic back pain -Adjust gabapentin dose based on kidney function, decrease dose to 100 mg daily #Hypothyroidism -Continue Synthroid 50 MCG #History of constipation -Patient reported history of hard stool -Bowel regimen Diet heart healthy Code full DVT prophylaxis heparin subcutaneous Consultation cardiology and nephrology As Ranked By This Provider Problem List: 1. CAD (coronary artery disease) 2. Hypertension 3. Hyperlipidemia 4. Hypothyroidism 5. Constipation 6. History of colon cancer 7. Iron (Fe) deficiency anemia 8. CHF (congestive heart failure) 9. Acute hypoxemic respiratory failure 10. Chronic renal insufficiency 11. Obstructive sleep apnea Core Measures/Miscellaneous Acute Coronary Syndrome ACS Diagnosis: No Cerebrovascular Accident CVA/TIA Diagnosis: No Congestive Heart Failure CHF Diagnosis: Yes Venous Thromboembolism VTE Risk Factors: Age > 40 No [facility] VTE prophylaxis d/t: No contraindications No VTE Pharm Prophylaxis d/t: No contraindications VTE Diagnosis: No VTE Type: NONE VTE Confirmed by (Test): NONE Severe Sepsis Severe Sepsis Present: No Septic Shock Septic Shock Present: No Miscellaneous Documentation Attending Case Discussed With: YOUSUF ANDERSON MDMoon Primary Care Physician: TAI OSMAN APRN Patient sees these Specialists cardiology, nephrology Level of Patient Care: Telemetry ROBBIE DOTSON MD 10/28/168: Resident Review Statement Resident Statement: examined this patient, discussed with planner internship, agreed with planner internship, discussed with family, reviewed EMR data (avail), reviewed images, amended to note Other Findings: Mr. bria reynolds is an 86-year-old gentleman with past medical history of CAD s/p 5 vessel CABG, heart failure with preserved ejection fraction (echo done on 2016 revealed EF of 60-65% with [id number] mitral and aortic stenosis and moderate to severe pulmonary hypertension), stage V CKD not on dialysis (but did require intermittent inpatient temporary dialysis), anemia of chronic kidney disease, history of colon cancer s/p resection in 2006, chronic back pain with multiple back surgeries, ROBYN not on CPAP who was recently discharged from [facility] on 10/06/2016 after he was successfully treated for congestive heart failure, who was recently evaluated in ER 2 days prior to admission for increased leg swelling and weight gain found to be volume overloaded and received 80 mg of IV Lasix in ER and discharged after good diuresis now returns to ER for evaluation of weight gain and unable to void much on oral diuretic regimen. Patient's and daughter was at bedside and provided most of the clinical information. As per the patient's patient was evaluated by his complaint clerk Dr. Zack Cross 4 days prior to admission and was recommended to decrease Lasix to 80 mg every other day. The next day patient's noted patient's gaining about 8 pounds and decided to continue oral 80 mg Lasix with no significant diuresis and was brought in to ER from his PCPs office when he noted hypoxic to 77% on ambulation resulting in loss of consciousness, followed to be volume overloaded and discharge after given 80 mg of IV Lasix. Patient did put out 1300 mL urine output after IV Lasix and then for past couple days even on his daily 80 mg Lasix po, patient did not void much. Due to inability to respond to diuretic regimen, patient's brought him to ER for further evaluation of volume overload. At baseline patient requires 2 L of supplemental oxygen, and reports no increase in O2 requirement. As per patient's patient eats small portion but do have food with salt in it and also eats pickle occasionally. Patient denies any active chest pain, dizziness, lightheadedness, productive cough, upper respiratory infection, fever, chills, abdominal pain, nausea, vomiting, urinary symptoms. Patient have significant shortness of breath mostly on exertion which limits his daily activity. His vitals on admission were T 98.4, HR 74, RR 22, BP 121/57, O2 sat 94% on 4 L supplemental O2 On physical exam patient is alert oriented 3 in mild respiratory distress, HEENT PERRLA EOMI, neck supple, heart S1-S2 normal with grade 3/6 systolic murmur heard at second right intercostal space and fifth left intercostal space, abdomen soft distended nontender with preserved bowel sounds, no focal gross neuro deficit, 1+ pitting edema in bilateral lower extremity. Labs were significant for WBC 4.1, H&H 8.7/27.5 (baseline hemoglobin 8.5 a week ago), platelet 139, BUN 80, creatinine 5.4 (baseline creatinine 4.4/BUN 44, 2 weeks ago), troponin 0.02, proBNP 16,400, calcium 8.6 Chest x-ray noted with stable cardiomegaly and mild vascular congestion. Noted persistent left hemidiaphragm elevation unchanged from previous x-ray EKG revealed ectopic atrial regular rhythm at rate of [address]-T changes, QTC 425 Patient received 100 mg of Lasix IV in ER and put out about 1 30 mL urine at the time of exam. Assessment and plan: This is 86-year-old male with past medical history of CAD status post CABG, heart failure with preserved ejection fraction, hypothyroidism , stage V CK D presented from home with chief complaint of 8 pound weight gain and bilateral lower extremity edema even on being home 80 mg Lasix at home without no significant diuresis he found to have worsening kidney function, and volume overload. 1. Acute on chronic respiratory failure in setting of Volume overload due to acute on CKD and diastolic HF, pulmonary HTN - Patient received Lasix 100 mg IV bolus in ER - Continue Lasix 80 mg every 8 hourly - Monitor kidney function - Strict CARL's - Daily weight - Cardiology consult in a.m. - Recent echo noted normal EF with severe pulmonary hypertension, will hold repeating echo until recommended by cardiology - On discharge patient needs CHF clinic referral 2. GURPREET on CKD stage 5 - Closely monitor renal function on diuresis treatment - Monitor kidney function - If kidney function gets worse, we may need to consider dialysis - Nephrology consult in a.m. - Avoid nephrotoxic agent - Continue calcitriol - Epogen every 2 weeks 3. History of CAD, hypertension - Continue Imdur, labetalol and amlodipine - Hold hydralazine, if blood pressure remains high and resume in the morning - Continue statin 4. Normocytic anemia secondary to chronic kidney disease - Continue iron supplement Patient received Epogen on Monday, will repeat in 2 weeks - H&H stable - Monitor H&H 5. Chronic back pain - Continue gabapentin at a lower dose 100 mg at bedtime due to worsening kidney function 6. Hypothyroidism - Continue levothyroxine 7. DVT prophylaxis Subcutaneous heparin 8. Full code JUSTIN BAIN, [facility] 10/29/16 0033: Attending MD Review Statement Attending Statement Attending MD Statement: examined this patient, discuss w/resident/PA/NETWORK ENGINEER ADMINISTRATOR, agreed w/resident/PA/NETWORK ENGINEER ADMINISTRATOR, discussed with family Attending Assessment/Plan: 86 yo M with h/o HTN, CAD s/p CABG, CKD stage 4-5, chronic diastolic heart failure, chronic hypoxic respiratory failure on 2 L O2, anemia of chronic disease, colon cancer s/p resection (2006), chronic back pain, ROBYN noncompliant with CPAP, was discharged on October 06 after being treated for CHF/acute on CKD. According to , patient had been doing well, followed up with Dr. Cross ( Nephro) on October 24 and was suggested to reduce lasix to 80 EOD. On an average his urine output ~ 500 1000 cc/day and he weighs about 228-230 lbs. However, on October 25 noted patient had gained about 4 lbs, so she gave him the lasix on Monday. On October 26, while he was visiting his PCP he became weak and collapsed, noted to be hypoxic and was sent to ER. He was given lasix IV 80 mg and discharged. reports that he diuresed well that night. However, now reports that today patient had no urine output despite taking lasix and his weight had increased by a total of 8 lbs (238). Of note, patient required short term dialysis in October 2015 due to worsening renal insufficiency. He was to follow with Vascular for eventual need for AVF for possible dialysis. Currently patient reports dyspnea on exertion, feeling fatigued and wobbly/ off balance when he walks. He denies chest pain, lightheadedness or palpitations. Vitals: afebrile, HR 70's, BP 145/67, sats 91-93% on 4-5 L. Exam: AAO, in mild respiratory distress, no JVD, Chest: bibasilar crackles, Heart S1S2 regular, systolic murmur+, LE: 1+ pitting b/l edema. Labs: H/H 8.7/27.5, BUN 80, creat 5.4 (3.5 4.0 baseline), trop neg, proBNP 75211, UA clear. CXR: mild vascular congestion. EKG: ectopic atrial rhythm. Echo (October 2016): EF 60-65% with mild- to-moderate mitral and aortic stenosis and moderate to severe pulmonary hypertension), 1. Acute on chronic hypoxic respiratory failure 2/2 fluid overload which is multifactorial due to diastolic heart failure and acute on chronic renal insufficiency. Tele admit, daily weights, strict I/O's, IV lasix 100 mg now followed by 80 mg TID from AM, monitor renal functions while on lasix. Cardio and Nephro consult in AM. ER initially discussed with Dr. Gil who suggested lasix drip, however patient's was reluctant. PA then discussed with Dr. Oconnor who suggested lasix 100 mg and then 80 TID. No need for repeat echo. Unclear as to why this patient has not had referral to the CHF clinic. Please consult case management. I had a detailed discussion with patient's , daughter and the patient, they wish to continue aggressive management and are agreeable to dialysis if need be. Patient had seen a Vascular surgeon for possible AVF placement (ultrasound/vein mapping) 2. HTN. We have initiated Imdur, labetalol and amlodipine. Hydralazine to be resumed if BP tolerates. DVT ppx Hep SC. Full code.
--- NOTE | 2016-10-28 22:06 | NUR ---
REPORT CALLED TO [place] ON TELE UNIT
--- NOTE | 2016-10-28 22:17 | NUR ---
CHAPPELL EMPTIED PRIOR TO GOING TO TELE FLOOR--TOTAL OUTPUT SINCE ARRIVAL IN ED WAS 425 CC----PT PUT OUT 225 WHEN CHAPPELL FIRST PLACED AND THEN AN ADDITION 200 AFTER LASIX GIVEN. REPORTS PT HAS NOT VOIDED ALL DAY
--- NOTE | 2016-10-28 22:22 | Admission Certification ---
Admission Certification Certification Statement - As attending physician, I certify that at the time of - admission, based on clinical presentation, severity of - symptoms, need for further diagnostic testing and - therapeutic interventions, and risk of adverse outcomes - without in-hospital treatment, in my clinical assessment, - this patient requires an acute hospital stay for a minimum - of two nights or longer. I have also considered psychsocial - factors such as support system, advanced age, financial - issues, cognitive issues, and failed out-patient treatments, - past re-admission history, safety of patient, and lack of - compliance as applicable. Specific rationale supporting this admission is: Acute on chronic hypoxic respiratory failure, fluid overload, acute on CKD, diastolic CHF.
[2016-10-29 00:47] VITALS: BP 156/70
--- NOTE | 2016-10-29 06:16 | PN- Housestaff ---
See Addendum Subjective Follow-up For: acute on chr. respi failure volume overload acute on CKD anemia Complaints: worsening sob Tele-Events Since Last Visit: accelerated junctional rhythm@70-74 Subjective: Patient is comfortably lying in bed, noted SOB now requires 45% supp. O2 by venti mask. denies cp, fever, chills, abd. pain, nausea, vomiting. Has minimal b /l le edema. Mentating well. Review of Systems Constitutional: Reports: see HPI. Objective Last 24 Hrs of Vital Signs/I&O Vital Signs Date Time Temp Pulse Resp B/P B/P Pulse O2 O2 Flow FiO2 Mean Ox Delivery Rate 10/29 0047 98.6 73 18 156/70 91 Nasal Cannula 10/28 2210 97.1 75 18 145/67 91 Nasal 5.0L Cannula 10/28 2036 97.1 77 18 144/65 93 Nasal 4.0L Cannula 10/28 1841 97.6 72 18 11/53 93 Nasal 4.0L Cannula 10/28 1840 97.5 72 18 118/53 93 Nasal 4.0L Cannula 10/28 1745 94 Nasal 4.0L Cannula 10/28 1653 98.4 74 22 121/57 94 Room Air Intake & Output 10/29 0800 10/29 0000 10/28 1600 Intake Total Output Total 425 Balance -425 Output, Urine 425 Patient 238 lb Weight Weight Reported by Patient Measurement Method Physical Exam General Appearance: Alert, Oriented X3, Cooperative, Moderate Distress Skin: No Breakdown Skin Temp/Moisture Exam: Warm/Dry Sepsis Skin Exam (color): Normal for Ethnicity HEENT: Atraumatic, PERRLA, EOMI, Mucous Membr. moist/pink Neck: Supple, No JVD Cardiovascular: Regular Rate, Normal S1, Normal S2, noted syst. murmur Lungs: Normal Air Movement Abdomen: Normal Bowel Sounds, Soft, No Tenderness Neurological: Normal Speech, Strength at 5/5 X4 Ext, Normal Tone, Sensation Intact, Cranial Nerves 3-12 NL Extremities: Normal Pulses, 1+ b/l le edema Vascular: Normal Pulses, Pulses Symmetrical Current Medications: Current Medications Sig/Tiffanie Start time Last Medication Dose Route Stop Time Status Admin Acetaminophen 650 MG Q6P PRN 10/28 2230 AC PO Amlodipine Besylate 10 MG DAILY 10/29 1000 AC PO Atorvastatin Calcium 20 MG DAILY 10/29 1000 AC PO Atorvastatin Calcium 20 MG ONCE ONE 10/29 0100 DC 10/29 PO 10/29 010 012 Calcitriol 0.25 MCG AT BEDTIME 10/290 AC PO Calcitriol 0.25 MCG ONCE ONE 10/29 0100 DC 10/29 PO 10/29 100 012 Cholecalciferol 1,000 IU DAILY 10/29 1000 AC PO Docusate Sodium 100 MG BID 10/29 1000 AC PO Ferrous Sulfate 325 MG BID 10/28 2220 AC 10/29 PO 0123 Furosemide 80 MG Q8 10/29 0600 AC IV Furosemide 0 .STK-MED ONE 10/28 2013 DC IV Furosemide 100 MG ONCE ONE 10/28 1845 DC 10/28 IV PUSH 10/28 1842016 Furosemide 100 MG CONTINOUS INFUSION 10/28 1844 CAN Sodium Chloride 100 ML IV Gabapentin 100 MG QPM 10/29 2199 AC PO Gabapentin 100 MG ONCE ONE 10/29 0100 DC 10/29 PO 10/29 100 012 Heparin Sodium 5,000 UNIT Q8 10/28 2214 AC (Porcine) SC Isosorbide 90 MG DAILY 10/29 1000 AC Mononitrate PO Labetalol HCl 300 MG BID 10/28 2220 AC 10/29 PO 0123 Levothyroxine Sodium 0.05 MG DAILY 10/29 1000 AC PO Senna/Docusate Sodium 1 TAB BID 10/29 1000 AC PO Last 24 Hrs of Lab/Jamel Results Last 24 Hrs of Labs/Mics: Laboratory Tests 10/29/16 0625: Sodium Pending, Potassium Pending, Chloride Pending, Carbon Dioxide Pending, Anion Gap Pending, BUN Pending, Creatinine Pending, BUN/Creatinine Ratio Pending 10/28/16 1920: Urine Color YEL, Urine Clarity CLEAR, Urine pH 5.5, Ur Specific [place] 1.020, Urine Protein TRACE H, Urine Ketones NEG, Urine Nitrite NEG, Urine Bilirubin NEG, Urine Urobilinogen 0.2, Ur Leukocyte Esterase NEG, Ur Microscopic SEDIMENT EXAMINED, Urine Bacteria RARE H, Urine Hemoglobin NEG, Urine Glucose NEG 10/28/16 1733: Anion Gap 15, Estimated GFR 10 L, BUN/Creatinine Ratio 14.8, Glucose 104 H, Calcium 8.6, Total Bilirubin 0.8, AST 17, ALT 33, Alkaline Phosphatase 50, Troponin I 0.02, Qzs-I-Mmgqhgnjfgb Pept 65514 H, Total Protein 6.8, Albumin 4.3 , Globulin 2.5, Albumin/Globulin Ratio 1.7, CBC w Diff NO MAN DIFF REQ, RBC 3.01 L, MCV 91.2, MCH 28.9, RDW 16.9 H, MPV 7.2 L, Gran % 79.4 H, Lymphocytes % 7.8 L, Monocytes % 10.6 H, Eosinophils % 2.1, Basophils % 0.1, Absolute Granulocytes 3.2, Absolute Lymphocytes 0.3 L, Absolute Monocytes 0.4, Absolute Eosinophils 0.1, Absolute Basophils 0, PUBS MCHC 31.7 L Microbiology 10/28 1914 URINE ROUT: Urine Culture - RECD Assessment/Plan Assessment: This is 86-year-old male with past medical history of CAD status post CABG, heart failure with preserved ejection fraction, hypothyroidism, stage V CK D presented from home with chief complaint of 8 pound weight gain and bilateral lower extremity edema even on being home 80 mg Lasix at home without no significant diuresis he found to have worsening kidney function, and volume overload. 1. Acute on chronic respiratory failure in setting of Volume overload due to acute on CKD and diastolic HF, pulmonary HTN, dietary non-compliance - Continue Lasix 80 mg every 8 hourly - awaiting morning labs to check kidney function - Strict CARL's - Daily weight - Cardiology consult in a.m. - Recent echo noted normal EF with severe pulmonary hypertension, will hold repeating echo until recommended by cardiology 2. GURPREET on CKD stage 5 - Monitor kidney function pending - If kidney function gets worse, we may need to consider dialysis - Nephrology consult in a.m. - Avoid nephrotoxic agent - Continue calcitriol - Epogen every 2 weeks, last dose was on monday 3. History of CAD, hypertension - Continue Imdur, labetalol and amlodipine - Hold hydralazine, if blood pressure remains high and resume in the morning - Continue statin - 1st trop 0.02, awaiting am trop 4. Normocytic anemia secondary to chronic kidney disease - Continue iron supplement - Patient received Epogen on Monday, will repeat in 2 weeks - H&H stable - Monitor H&H 5. Chronic back pain - Continue gabapentin at a lower dose 100 mg at bedtime due to worsening kidney function 6. Hypothyroidism - Continue levothyroxine 7. DVT prophylaxis Subcutaneous heparin 8. Full code Problem List: 1. Volume overload 2. Acute hypoxemic respiratory failure 3. Acute on chronic renal failure 4. Anemia Pain Ratin Pain Location: back Pain Goal: Pain 4 or less Pain Plan: neurontin, tylenol Tomorrow's Labs & Rationales: bep DVT/Prophylaxis: pharmacological
[2016-10-29 08:00] VITALS: BP 150/80
--- NOTE | 2016-10-29 14:25 | PN- Nephrology ---
Assessment/Plan Assessment: Advanced CKD stage 4 - 5. Pt admitted with CHF. Agree with IV lasix 80 tid as you are doing would contiue to do so. -- Would ask Dr. Dill to see him about AVF creation. He should have this done prior to discharge -- No immediate need for dialysis but if CHF not controllable with lasix may come to that. will follow with you during the week. Thanks Suggestion: . Subjective Subjective: Please see Dr. Kauffman's consultation dated 10/04/2016 for history and prior details. Pt just recently discharge from hospital after episode of CHF and now readmitted. His is with him and tells me they were working with Dr. Cross about AVF creation but it hasn't been done. He sees Dr. [facility] for vascular and Dr. Cross does not work with them in his hospital. Review of Systems: As in HPI SOB VIRAMONTES PND no fever, cough other systems negative Objective Vital Signs and I&Os Vital Signs M SOB on high flow O2 160/80 78 98.9 Skin neg rash Eyes anciteric ENT moist Lungs posterior rales Cor RRR Abd soft obese Ext 2+edema Results Pertinent Lab Results: Laboratory Tests 10/29 10/28 0625 1920 Chemistry Sodium (137 - 145 mmol/L) 137 Potassium (3.5 - 5.1 mmol/L) 5.0 Chloride (98 - 107 mmol/L) 97 L Carbon Dioxide (22 - 30 mmol/L) 25 Anion Gap (5 - 16) 15 BUN (9 - 20 mg/dL) 82 H Creatinine (0.7 - 1.2 mg/dL) 5.4 *H Estimated GFR (>60 ml/min) 10 L BUN/Creatinine Ratio (7 - 25 %) 15.2 Troponin I (<0.11 ng/ml) 0.03 Urines Urine Color (YEL,AMB,STR) YEL Urine Clarity (CLEAR) CLEAR Urine pH (5.0 - 8.0) 5.5 Ur Specific [place] (1.001 - 1.035) 1.020 Urine Protein (NEG,<30 MG/DL) TRACE H Urine Ketones (NEG) NEG Urine Nitrite (NEG) NEG Urine Bilirubin (NEG) NEG Urine Urobilinogen (0.1 - 1.0 EU/dl) 0.2 Ur Leukocyte Esterase (NEG) NEG Ur Microscopic SEDIMENT EXAMINED Urine Bacteria (NEG/NONE) RARE H Urine Hemoglobin (NEG) NEG Urine Glucose (N MG/DL) NEG 10/28 1733 Chemistry Sodium (137 - 145 mmol/L) 137 Potassium (3.5 - 5.1 mmol/L) 4.9 Chloride (98 - 107 mmol/L) 97 L Carbon Dioxide (22 - 30 mmol/L) 25 Anion Gap (5 - 16) 15 BUN (9 - 20 mg/dL) 80 H Creatinine (0.7 - 1.2 mg/dL) 5.4 *H Estimated GFR (>60 ml/min) 10 L BUN/Creatinine Ratio (7 - 25 %) 14.8 Glucose (65 - 99 mg/dL) 104 H Calcium (8.4 - 10.2 mg/dL) 8.6 Total Bilirubin (0.2 - 1.3 mg/dL) 0.8 AST (17 - 59 U/L) 17 ALT (21 - 72 U/L) 33 Alkaline Phosphatase (< 127 U/L) 50 Troponin I (<0.11 ng/ml) 0.02 Gwv-P-Cpbndemhuxa Pept (<125 pg/mL) 25861 H Total Protein (6.3 - 8.2 g/dL) 6.8 Albumin (3.5 - 5.0 g/dL) 4.3 Globulin (1.9 - 4.2 gm/dL) 2.5 Albumin/Globulin Ratio (1.1 - 2.2 %) 1.7 Hematology CBC w Diff NO MAN DIFF REQ WBC (4.8 - 10.8 /CUMM) 4.1 L RBC (4.70 - 6.10 /CUMM) 3.01 L Hgb (14.0 - 18.0 G/DL) 8.7 L Hct (42 - 52 %) 27.5 L MCV (80.0 - 94.0 FL) 91.2 MCH (27.0 - 31.0 PG) 28.9 RDW (11.5 - 14.5 %) 16.9 H Plt Count (130 - 400 /CUMM) 139 MPV (7.4 - 10.4 FL) 7.2 L Gran % (42.2 - 75.2 %) 79.4 H Lymphocytes % (20.5 - 51.1 %) 7.8 L Monocytes % (1.7 - 9.3 %) 10.6 H Eosinophils % (0 - 5 %) 2.1 Basophils % (0.0 - 2.0 %) 0.1 Absolute Granulocytes (1.4 - 6.5 /CUMM) 3.2 Absolute Lymphocytes (1.2 - 3.4 /CUMM) 0.3 L Absolute Monocytes (0.10 - 0.60 /CUMM) 0.4 Absolute Eosinophils (0.0 - 0.7 /CUMM) 0.1 Absolute Basophils (0.0 - 0.2 /CUMM) 0 PUBS MCHC (33.0 - 37.0 G/DL) 31.7 L
--- NOTE | 2016-10-29 15:26 | Cons- Cardiology ---
General Information and HPI Consulting Request Date of Consult: 10/29/16 Requested By: JUSTIN BAIN,DEWAYNE History of Present Illness: Mr. Martinez is an 86 year old male with history of coronary artery disease s/p CABG x 5, hypertension, dyslipidemia, hypothyroidism and chronic renal insufficiency. Yesterday, after walking up some steps the patient became profoundly short of breath and unresponsive. He was noted to have a very low oxygenation at that time although it rapidly improved with an increase in his supplemental oxygen. The patient was noted in the ER to have an elevated creatinine consistent with renal failure. The patient's also noted mild leg edema and weight gain along with decreased urine output. Otherwise this patient is without chest pain or palpitations. He feels a bit improved on high flow oxygen after diuresis. Allergies/Medications Allergies: Coded Allergies: NO KNOWN ALLERGIES (09/28/15) Home Med List: Amlodipine Besylate 10 MG TABLET 0.5 TAB PO BID BP (Reported) Atorvastatin Calcium 20 MG TABLET 1 TAB PO DAILY CHOLESTEROL (Reported) Calcitriol 0.25 MCG CAPSULE 1 CAP PO AT BEDTIME KIDNEY DISEASE, HYPOCALCEMIA (Reported) Cholecalciferol (Vitamin D3) (Vitamin D) 1,000 UNIT TABLET 1 TAB PO DAILY SUPPLEMENT (Reported) Docusate Sodium (Colace) 100 MG CAPSULE 1 CAP PO BID STOOL SOFTENER (Reported ) Epoetin Earnest (Procrit) 40,000 UNIT/ML VIAL 40,000 UNIT SC Q2W ANEMIA ( Reported) Ezetimibe (Zetia) 10 MG TABLET 1 TAB PO DAILY CHOLESTEROL (Reported) Ferrous Sulfate (Feosol) 325 MG (65 MG IRON) TABLET 2 TAB PO BID ANEMIA ( Reported) Furosemide (Lasix) 80 MG TABLET 1 TAB PO AD DIURETIC (Reported) Gabapentin 300 MG CAPSULE 1 CAP PO QPM NERVE PAIN (Reported) Hydralazine HCl 100 MG TABLET 1 TAB PO BID BP (Reported) Isosorbide Mononitrate (Isosorbide Mononitrate ER) 30 MG TAB.ER.24H 90 MG PO DAILY chest pain Labetalol HCl 300 MG TABLET 1 TAB PO BID BP (Reported) Levothyroxine Sodium 50 MCG TABLET 1 TAB PO DAILY THYROID (Reported) Sennosides (Senokot) 8.6 MG TABLET 1 TAB PO DAILY GI (Reported) Past History Travel History Traveled to [place] past 21 day No Medical History Blood Transfusion Hx: Yes Neurological: shingles- left flank EENT: NONE Cardiovascular: CAD (s/p CABG x 5), diastolic CHF, hypertension, hyperlipidemia, atrial tachycardia Respiratory: pneumonia, WEARS O2 Gastrointestinal: NONE Hepatic: NONE Renal: chronic kidney disease (stage 4) Musculoskeletal: chronic back pain (implanted stimulator device), osteoarthritis Psychiatric: NONE Endocrine: hypothyroidism Blood Disorders: ANEMIA BLOOD TRANSFUSIONS Cancer(s): colon/rectal cancer 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 FATHER, , Age 70; Cause: Myocardial infarction. Relation not specified for: colon cancer in mother Psychosocial History Where Do You Live? Home Services at Home: Nursing, Physical Therapy Primary Language: Greenlandic Smoking Status: Former Smoker ETOH Use: denies use Illicit Drug Use: denies illicit drug use Living Will? yes Power of Head Chopper/HCP? unknown Functional Ability ADLs Independent: dressing, eating, toileting, bathing. Ambulation: independent IADLs Independent: shopping, housework, finances, food prep, telephone, transportation , medication admin. Exam & Diagnostic Data Vital Signs and I&O Vital Signs Date Time Temp Pulse Resp B/P B/P Pulse O2 O2 Flow FiO2 Mean Ox Delivery Rate 10/29 1443 Nasal 65% Cannula 10/29 0932 98.8 78 28 160/80 10/29 0932 98.8 78 28 160/80 10/29 0931 78 160/80 10/29 0800 90 Venti Mask 55% 10/29 0800 98.8 78 28 150/80 93 Venti Mask 10/29 0047 98.6 73 18 156/70 91 Nasal Cannula 10/28 2300 92 Part 55% ReBreather 10/28 2210 97.1 75 18 145/67 91 Nasal 5.0L Cannula 10/28 2036 97.1 77 18 144/65 93 Nasal 4.0L Cannula 10/28 1841 97.6 72 18 11/53 93 Nasal 4.0L Cannula 10/28 1840 97.5 72 18 118/53 93 Nasal 4.0L Cannula 10/28 1745 94 Nasal 4.0L Cannula 10/28 1653 98.4 74 22 121/57 94 Room Air Intake & Output 10/29 1600 10/29 0800 10/29 0000 10/28 1600 10/28 0800 10/28 0000 Intake Total 240 240 Output Total 300 350 425 Balance -60 -110 -425 Intake, Oral 240 240 Output, Urine 300 350 425 Patient 248 lb 249 lb Weight Weight Briana Lift Briana Lift Measurement Method Physical Exam: General: WD/ overweight male. Lethargic but responsive. Neck: no JVD Heart:RRR with 2/6 systolic murmur Lungs: clear bilaterally Abdomen: soft, NT, +ve bowel sounds Extremities: no edema Assessment/Plan Assessment/Plan * This patient has fluid overload related to renal failure. It should also be noted that this patient has mild to moderate mitral stenosis, mild to moderate aortic stenosis and mild to moderate tricuspid regurgitation as per his last echocardiogram. As such, he will not tolerate fluid overload well. This patient should be aggressively diuresed. He will need large doses of Lasix to remove fluid in the setting of his renal failure. Begin 100mg IV BID to TID as needed for fluid removal. Follow potassium level. * The patient's increased BNP is not specific for left heart failure in the setting of renal failure and is a manifestation of atrial and ventricular stretch from fluid overload. No need to repear an echocardiogram since it was just recently done. Consult Acknowledgment - Thank you for your consult request.
[2016-10-29 17:47] VITALS: BP 148/80
[2016-10-30 00:08] VITALS: BP 130/90
[2016-10-30 08:13] LABS: ABSOLUTE BASOPHIL COUNT 0 /CUMM (0.0-0.2); ABSOLUTE EOSINOPHIL COUNT 0 /CUMM (0.0-0.7); ABSOLUTE MONOCYTE COUNT 0.4 /CUMM (0.10-0.60)
[2016-10-30 08:35] LABS: ABSOLUTE GRANULOCYTE CT 3.7 /CUMM (1.4-6.5); ABSOLUTE LYMPH COUNT 0.2 /CUMM (1.2-3.4); BASOPHIL % 0 % (0.0-2.0); EOSINOPHIL % 0.2 % (0-5); GRANULOCYTE % 86.1 % (42.2-75.2); HEMATOCRIT 25.6 % (42-52); MEAN CORPUSCULAR HGB 29.1 PG (27.0-31.0); MEAN CORPUSCULAR VOLUME 90.9 FL (80.0-94.0); PLATELET COUNT 138 /CUMM (130-400); RBC DISTRIBUTION WIDTH 16.6 % (11.5-14.5); RED BLOOD CELL CT 2.82 /CUMM (4.70-6.10); WHITE BLOOD CELL COUNT 4.3 /CUMM (4.8-10.8)
[2016-10-30 08:53] VITALS: BP 140/80
--- NOTE | 2016-10-30 09:09 | PN- Housestaff ---
EMILY STRICKLAND 10/30/16 0909: Subjective Follow-up For: acute on chr. respi failure volume overload acute on CKD anemia Tele-Events Since Last Visit: Accelerated junctional rythm - SR: 83-87 some PVCs Subjective: Patient seen and examined at bedside. He is on high flow oxygen, and was sleeping. Apparently, he was agitated last night as aper the , who is at t he bedside. Review of Systems Constitutional: Denies: chills, fever. Cardiovascular: Denies: chest pain, palpitations. Respiratory: Denies: cough. Gastrointestinal: Denies: abdominal pain. Musculoskeletal: Reports: no symptoms. Objective Last 24 Hrs of Vital Signs/I&O Vital Signs Date Time Temp Pulse Resp B/P B/P Pulse O2 O2 Flow FiO2 Mean Ox Delivery Rate 10/30 0854 95 Nasal 60% Cannula 10/30 0853 98.0 80 20 140/80 95 Nasal Cannula 10/30 0611 98 Nasal 60% Cannula 10/30 0049 94 Nasal 60% Cannula 10/30 0008 98.7 73 20 130/90 93 CPAP 10/30 0000 94 Nasal 60% Cannula 10/29 2125 65 138/70 10/29 1918 93 Nasal 65% Cannula 10/29 1747 98.9 86 22 148/80 97 Nasal Cannula 10/29 1600 Nasal 65% Cannula 10/29 1443 Nasal 65% Cannula 10/29 0932 98.8 78 28 160/80 10/29 0932 98.8 78 28 160/80 10/29 0931 78 160/80 Intake & Output 10/30 1600 10/30 0800 10/30 0000 Intake Total 0 520 Output Total 1500 450 Balance -1500 70 Intake, IV 20 Intake, Oral 0 500 Output, Urine 1500 450 Physical Exam General Appearance: Cooperative, No Acute Distress, drowsy but arousable. HEENT: Atraumatic, PERRLA Neck: Supple, No JVD Cardiovascular: Regular Rate, Normal S1, Normal S2, No Murmurs Lungs: Clear to Auscultation, Normal Air Movement Abdomen: Normal Bowel Sounds, Soft, No Tenderness Neurological: Normal Speech, Strength at 5/5 X4 Ext, Normal Tone, Sensation Intact, Cranial Nerves 3-12 NL, Reflexes 2+ Extremities: No Clubbing, No Cyanosis, Normal Pulses, No Tenderness/Swelling, 1+ b/l edema Vascular: Normal Pulses, Pulses Symmetrical Current Medications: Current Medications Sig/Tiffanie Start time Last Medication Dose Route Stop Time Status Admin Acetaminophen 650 MG Q6P PRN 10/28 2229 AC PO Albuterol Sulfate 3 ML BID 10/29 220 AC 10/30 INH 0852 Albuterol Sulfate 3 ML Q4P PRN 10/29 0830 DC 10/29 INH 0822 Amlodipine Besylate 10 MG DAILY 10/29 1000 AC 10/29 PO 0932 Atorvastatin Calcium 20 MG DAILY 10/29 1000 AC 10/29 PO 0931 Calcitriol 0.25 MCG AT BEDTIME 10/29 220 AC 10/29 PO 2125 Cholecalciferol 1,000 IU DAILY 10/29 1000 AC 10/29 PO 0931 Docusate Sodium 100 MG BID 10/29 1000 AC 10/29 PO 212 Ferrous Sulfate 325 MG BID 10/28 222 AC 10/29 PO 2125 Furosemide 100 MG Q8 10/29 2200 DC IV Furosemide 100 MG Q8 10/29 2200 AC 10/30 IV 0654 Furosemide 80 MG Q8 10/29 0600 DC 10/29 IV 1345 Gabapentin 100 MG QPM 10/29 2200 AC 10/29 PO 2125 Heparin Sodium 5,000 UNIT Q8 10/28 2214 AC 10/30 (Porcine) SC 0654 Isosorbide 90 MG DAILY 10/29 1000 AC 10/29 Mononitrate PO 0932 Labetalol HCl 300 MG BID 10/28 222 AC 10/29 PO 2125 Levothyroxine Sodium 0.05 MG DAILY 10/29 1000 AC 10/29 PO 0931 Prednisone 40 MG DAILY 10/29 1000 AC 10/29 PO 1100 Senna/Docusate Sodium 1 TAB BID 10/29 1000 AC 10/29 PO 2125 Last 24 Hrs of Lab/Jamel Results Last 24 Hrs of Labs/Mics: Laboratory Tests 10/30/16 0610: Anion Gap 16, Estimated GFR 8 L, BUN/Creatinine Ratio 15.2, CBC w Diff Pending, WBC Pending, RBC Pending, Hgb Pending, Hct Pending, MCV Pending, MCH Pending, RDW Pending, Plt Count Pending, MPV Pending, Gran % Pending, Lymphocytes % Pending, Monocytes % Pending, Eosinophils % Pending, Basophils % Pending, Absolute Granulocytes Pending, Absolute Lymphocytes Pending, Absolute Monocytes Pending, Absolute Eosinophils Pending, Absolute Basophils Pending, PUBS MCHC Pending Assessment/Plan Assessment: This is 86-year-old male with past medical history of CAD status post CABG, heart failure with preserved ejection fraction, hypothyroidism, stage V CK D presented from home with chief complaint of 8 pound weight gain and bilateral lower extremity edema even on being home 80 mg Lasix at home without no significant diuresis he found to have worsening kidney function, and volume overload. 1. Acute on chronic respiratory failure in setting of Volume overload due to acute on CKD and diastolic HF, pulmonary HTN, dietary non-compliance - Changed Lasix 80 mg every 12 hrs as per Cardio recs - AM labs today revealed Cr of 6.8 - Strict CARL's - Daily weight - F/U Cardio recs - Recent echo noted normal EF with severe pulmonary hypertension, will hold repeating echo as per Cardiology 2. GURPREET on CKD stage 5 - Monitor kidney function pending - If kidney function gets worse, we may need to consider dialysis - Nephrology saw the patient yesterday and recommended no immediate need for dialysisfor now. They also want vascular consult to be placed with Dr. Dill to get AVF. He should have this done prior to discharge - Avoid nephrotoxic agent - Continue calcitriol - Epogen every 2 weeks, last dose was on Monday 3. History of CAD, hypertension - Continue Imdur, labetalol and amlodipine - Holding hydralazine. Blood pressure currently stable - Continue statin 4. Normocytic anemia secondary to chronic kidney disease - Continue iron supplement - Patient received Epogen on Monday, will repeat in 2 weeks - H&H stable - Monitor H&H 5. Chronic back pain - Continue gabapentin at a lower dose 100 mg at bedtime due to worsening kidney function 6. Hypothyroidism - Continue levothyroxine 7. DVT prophylaxis Subcutaneous heparin 8. Full code Problem List: 1. Acute on chronic renal failure Pain Ratin Pain Location: n/a Pain Goal: Remain pain free Pain Plan: tyelnol Tomorrow's Labs & Rationales: cbc- monitor H&H BEP - monitor Cr JOANIE BAIN,[facility] 10/30/16 1701: Attending Review Statement Attending Statement Attending MD Statement: examined this patient, discuss w/resident/PA/SOCIAL WORK PROFESSOR, agreed w/resident/PA/SOCIAL WORK PROFESSOR, reviewed EMR data (avail), discussed with nursing, discussed with case mgmt, reviewed images, amended to note Attending Assessment/Plan: 86-year-old gentleman with past medical history significant for hypertension, CAD status post CABG, CK D, chronic diastolic heart failure, chronic hypoxemic respiratory failure and is on 2 L of home oxygen, obstructive sleep apnea and noncompliant with CPAP, recent admission to the [facility] for CHF exacerbation and acute on chronic CK D is being once again admitted to the floor for acute on chronic hypoxemic respiratory failure secondary to fluid overload in the setting of CHF and acute on chronic renal insufficiency. Patient was seen and examined on the bedside. Vitals stable and labs were reviewed. Nephrology has been put on board agrees with continuing the patient on IV Lasix 80 mg 3 times daily. He is being considered for having an aVF creation for possible dialysis. We will consult cardiology as well will initially suggested to put the patient on IV Lasix drip but the patient's family refused. We'll closely monitor the patient.
[2016-10-30 14:00] VITALS: BP 109/56
--- NOTE | 2016-10-30 17:06 | PN- Cardiology ---
Subjective Subjective: * Patient has worsening confusion with no specific complaints. * BUN/ CR is 96/6.3 * sinus rhythm Objective Vital Signs and I&Os Vital Signs Date Time Temp Pulse Resp B/P B/P Pulse O2 O2 Flow FiO2 Mean Ox Delivery Rate 10/30 1400 109/56 10/30 1006 140/80 10/30 1004 80 140/80 10/30 0854 95 Nasal 60% Cannula 10/30 0853 98.0 80 20 140/80 95 Nasal Cannula 10/30 0800 96 Nasal 65% Cannula 10/30 0611 98 Nasal 60% Cannula 10/30 0049 94 Nasal 60% Cannula 10/30 0008 98.7 73 20 130/90 93 CPAP 10/30 0000 94 Nasal 60% Cannula 10/29 2125 65 138/70 10/29 1918 93 Nasal 65% Cannula 10/29 1747 98.9 86 22 148/80 97 Nasal Cannula Intake & Output 10/30 1600 10/30 0800 10/30 0000 10/29 1600 10/29 0800 10/29 0000 Intake Total 240 0 520 240 240 Output Total 750 1500 450 300 350 425 Balance -510 -1500 70 -60 -110 -425 Intake, IV 20 Intake, Oral 240 0 500 240 240 Output, Urine 750 1500 450 300 350 425 Patient 248 lb 249 lb Weight Weight Briana Lift Briana Lift Measurement Method Physical Exam: General: WD/ overweight male. Lethargic but responsive. Neck: no JVD Heart: RRR with 2/6 systolic murmur Lungs: clear bilaterally Extremities: no edema Assessment/Plan Assessment/Plan * This patient has fluid overload related to renal failure. It should also be noted that this patient has mild to moderate mitral stenosis, mild to moderate aortic stenosis and mild to moderate tricuspid regurgitation as per his last echocardiogram. As such, he will not tolerate fluid overload well. He is now doing better after diuresis but has a rising creatinine. Continue Lasix at 100mg IV BID and follow potassium level. * The patient's increased BNP is not specific for left heart failure in the setting of renal failure and is a manifestation of atrial and ventricular stretch from fluid overload. No need to repear an echocardiogram since it was just recently done. * Renal is following with the expectation of dialysis in the near future. Continue telemetry? Yes
[2016-10-30 17:17] VITALS: BP 114/60
[2016-10-30 22:48] VITALS: BP 138/70
--- NOTE | 2016-10-31 08:06 | PN- Housestaff ---
TANA COLE 10/31/16 0805: Subjective Follow-up For: - CHF exacerbation Complaints: no complaints Tele-Events Since Last Visit: NSR, accelerated junctional rhythm. Subjective: Pt was comfortable this am. No complaints. Vitals stable. Remained afebrile. He underwent aggressive diuresis in the last few days. No shortness of breath, no chest pain or palpitations. Currently on high flow oxygen. Plan to place an asael catheter for dialysis. Arrangements made. Requested Dr. Campo to assess the AV fistula site. During the day, tuneled asael catheter was placed without any complications. pt did not have any complaints. No bleeding from the site of insertion. Review of Systems Constitutional: Reports: see HPI. Objective Last 24 Hrs of Vital Signs/I&O Vital Signs Date Time Temp Pulse Resp B/P B/P Pulse O2 O2 Flow FiO2 Mean Ox Delivery Rate 10/31 0406 92 Nasal 60% Cannula 10/31 0000 97 Nasal 65% Cannula 10/308 93 Nasal 60% Cannula 10/30 2248 97.9 76 20 138/70 97 Nasal 65% Cannula 10/30 2059 76 130/70 10/30 1858 93 Nasal 60% Cannula 10/30 1717 97.6 78 22 114/60 97 10/30 1650 93 Nasal 60% Cannula 10/30 1600 96 Nasal 65% Cannula 10/30 1400 109/56 10/30 1006 140/80 10/30 1004 80 140/80 10/30 0854 95 Nasal 60% Cannula 10/30 0853 98.0 80 20 140/80 95 Nasal Cannula Intake & Output 10/31 1600 10/31 0800 10/31 0000 Intake Total 200 510 Output Total 800 850 Balance -600 -340 Intake, IV 30 Intake, Oral 200 480 Output, Urine 800 850 Patient 229 lb Weight Weight Standing Scale Measurement Method Physical Exam General Appearance: No Acute Distress Other Physical Findings: General Exam: AAOx3, No acute distress, Skin: No rashes, no breakdown HEENT: PERRLA, EOMI Neck: Supple, No JVD No cervical lymphadenopathy CVS: Reg Rate, Normal S1,S2, No MGR Resp: Normal air entry, no ronchi/rales Abdomen: Soft, No tenderness, Normal Bowel Sounds Neuro: Normal Speech, Strength 5/5 b/l x 4 extremities, Sensation intact, CN III -XII NL, Reflexes 2+ Extremities: No cyanosis, pedal edema Current Medications: Current Medications Sig/Tiffanie Start time Last Medication Dose Route Stop Time Status Admin Acetaminophen 650 MG Q6P PRN 10/28 2229 AC PO Albuterol Sulfate 3 ML BID 10/29 2199 AC 10/30 INH 1858 Amlodipine Besylate 10 MG DAILY 10/29 1000 AC 10/30 PO 100 Atorvastatin Calcium 20 MG DAILY 10/29 1000 AC 10/30 PO 100 Calcitriol 0.25 MCG AT BEDTIME 10/29 2199 AC 10/30 PO 2100 Cholecalciferol 1,000 IU DAILY 10/29 1000 AC 10/30 PO 100 Docusate Sodium 100 MG BID 10/29 1000 AC 10/30 PO 2059 Ferrous Sulfate 325 MG BID 10/29 2219 AC 10/30 PO 2100 Furosemide 100 MG BID 10/300 AC 10/30 IV 2100 Furosemide 100 MG Q8 10/290 DC 10/30 IV 1407 Gabapentin 100 MG QPM 10/29 2199 AC 10/30 PO 2058 Heparin Sodium 5,000 UNIT Q8 10/28 2214 AC 10/31 (Porcine) SC 0602 Isosorbide 90 MG DAILY 10/29 1000 AC 10/30 Mononitrate PO 100 Labetalol HCl 300 MG BID 10/29 2219 AC 10/30 PO 9 Levothyroxine Sodium 0.05 MG DAILY 10/29 1000 AC 10/30 PO 1006 Prednisone 40 MG DAILY 10/29 1000 AC 10/30 PO 1004 Senna/Docusate Sodium 1 TAB BID 10/29 1000 AC 10/30 PO 2100 Last 24 Hrs of Lab/Jamel Results Last 24 Hrs of Labs/Mics: Laboratory Tests 10/31/16 0600: Sodium Pending, Potassium Pending, Chloride Pending, Carbon Dioxide Pending, Anion Gap Pending, BUN Pending, Creatinine Pending, BUN/Creatinine Ratio Pending , CBC w Diff Pending, WBC Pending, RBC Pending, Hgb Pending, Hct Pending, MCV Pending, MCH Pending, RDW Pending, Plt Count Pending, MPV Pending, PUBS MCHC Pending Assessment/Plan Assessment: Mr Martinez is an 86-year-old male with past medical history of CAD status post CABG, heart failure with preserved ejection fraction, hypothyroidism, CKD- stage 5 is being evaluated for worsening bilateral lower extremity edema and 8 pound weight gain despite being on furosemide likely due to worsening renal function and volume overload. Below is the problem list and plan: 1. Acute on chronic respiratory failure likely multifactorial-volume overload, acute on CKD and diastolic HF, pulmonary HTN, or dietary non-compliance. Patient initially diuresed with high dose of furosemide, which was discontinued this a.m. Worsening renal function serum creatinine 6.8. Check daily weights. Patient has obstructive sleep apnea, and severe pulmonary hypertension which could be contributing to decompensation. 2. GURPREET on CKD stage 5-worsening renal function. BUN 116, serum creatinine 6.8. Tunneled Asael cath placed today. Hemodialysis in the a.m. Sales And Marketing Coordinator-Salvador Zepeda MD advising. In view of long-term hemodialysis, a vascular consult has been placed with Dr. Dill to have aVF placed while the patient is admitted in the hospital. Continue calcitriol and Epogen. 3. History of CAD, hypertension- Continue Imdur, labetalol and amlodipine. Juan J Lamas MD advising. Aspirin could be started after a decision is made about placement of aVF. 4. Normocytic anemia secondary to chronic kidney disease- likely anemia of chronic disease. Received Epogen on Monday. H&H stable at this time. Hemoglobin 8.2. 5. Chronic back pain- Continue gabapentin at a lower dose 100 mg at bedtime due to worsening kidney function 6. Hypothyroidism- Continue levothyroxine 7. DVT prophylaxis- Subcutaneous heparin 8. Full code Problem List: 1. Pulmonary vascular congestion 2. CHF (congestive heart failure) 3. End stage renal disease Pain Ratin Pain Location: none Pain Goal: Pain 4 or less Pain Plan: Tylenol when necessary Tomorrow's Labs & Rationales: cbc- patient has low H&H. Monitor for anemia bep- abnormal renal function. Serum creatinine 6.8. Monitor for worsening kidney function. BASIA BAIN,[facility] 10/31/16 1244: Attending MD Review Statement Attending Statement Attending Statement: examined this patient, discuss w/resident/PA/LIGHTING FIXTURES DECORATOR, agreed w/resident/PA/LIGHTING FIXTURES DECORATOR, reviewed EMR data (avail), discussed with nursing, discussed with case mgmt, reviewed images, amended to note Attending Assessment/Plan: Patient seen and examined, still requiring high flow oxygen. He himself denies any complaints including no shortness of breath, no chest pain, no other complaints. Vital Signs Date Time Temp Pulse Resp B/P B/P Pulse O2 O2 Flow FiO2 Mean Ox Delivery Rate 10/31 0845 98.2 84 144/60 10/31 0944 144/60 10/31 0944 84 144/60 10/31 0905 97 Nasal 60% Cannula 10/31 0822 98.2 84 20 144/70 93 Nasal Cannula 10/31 0800 95 Nasal 65% Cannula 10/31 0406 92 Nasal 60% Cannula 10/31 0000 97 Nasal 65% Cannula 10/30 2248 93 Nasal 60% Cannula 10/30 2248 97.9 76 20 138/70 97 Nasal 65% Cannula 10/30 2059 76 130/70 10/30 1858 93 Nasal 60% Cannula 10/30 1717 97.6 78 22 114/60 97 10/30 1650 93 Nasal 60% Cannula 10/30 1600 96 Nasal 65% Cannula 10/30 1400 109/56 on exam; aox3, nad. cv; s1,s2, + systolic murmur resp; clear with decreased bs at b/l bases. abd; soft, nt, bs+ ext; no edema. Laboratory Tests 10/31 10/31 1104 0600 Chemistry Sodium (137 - 145 mmol/L) 142 Potassium (3.5 - 5.1 mmol/L) 4.4 Chloride (98 - 107 mmol/L) 98 Carbon Dioxide (22 - 30 mmol/L) 24 Anion Gap (5 - 16) 19 H BUN (9 - 20 mg/dL) 116 *H Creatinine (0.7 - 1.2 mg/dL) 6.8 *H Estimated GFR (>60 ml/min) 8 L BUN/Creatinine Ratio (7 - 25 %) 17.1 Coagulation PT (9.4 - 12.5 SEC) 12.5 INR (0.90 - 1.17) 1.19 H Hematology CBC w Diff NO MAN DIFF REQ WBC (4.8 - 10.8 /CUMM) 5.7 RBC (4.70 - 6.10 /CUMM) 2.76 L Hgb (14.0 - 18.0 G/DL) 8.2 L Hct (42 - 52 %) 24.8 L MCV (80.0 - 94.0 FL) 89.9 MCH (27.0 - 31.0 PG) 29.7 RDW (11.5 - 14.5 %) 16.6 H Plt Count (130 - 400 /CUMM) 153 MPV (7.4 - 10.4 FL) 7.8 Gran % (42.2 - 75.2 %) 87.1 H Lymphocytes % (20.5 - 51.1 %) 4.6 L Monocytes % (1.7 - 9.3 %) 7.9 Eosinophils % (0 - 5 %) 0.1 Basophils % (0.0 - 2.0 %) 0.3 Absolute Granulocytes (1.4 - 6.5 /CUMM) 5.0 Absolute Lymphocytes (1.2 - 3.4 /CUMM) 0.3 L Absolute Monocytes (0.10 - 0.60 /CUMM) 0.4 Absolute Eosinophils (0.0 - 0.7 /CUMM) 0 Absolute Basophils (0.0 - 0.2 /CUMM) 0 PUBS MCHC (33.0 - 37.0 G/DL) 33.0 A/P: 86 y/o M with pmh sig for CAD status post CABG, heart failure with preserved ejection fraction, hypothyroidism, stage V CKD, admitted with weight gain, decreased urination, acute on chronic renal failure, fluid overload and acute hypoxic respiratory failure. At this point, patient had been kept on IV Lasix which was stopped today. Seen by nephrology, cardiology and restless surgery. Plan is to initiate dialysis after patient receives the tunneled catheter by IR. Continue oxygen. Please start low-dose aspirin as recommended by cardiology if there are no previous chronic medications. Patient on 40 mg of prednisone, likely will start the taper. Continue all current cardiac medications. DVT px: Heparin subcutaneous. Please order PT evaluation.
[2016-10-31 08:14] LABS: ABSOLUTE BASOPHIL COUNT 0 /CUMM (0.0-0.2); ABSOLUTE EOSINOPHIL COUNT 0 /CUMM (0.0-0.7); ABSOLUTE LYMPH COUNT 0.3 /CUMM (1.2-3.4); ABSOLUTE MONOCYTE COUNT 0.4 /CUMM (0.10-0.60); BASOPHIL % 0.3 % (0.0-2.0); EOSINOPHIL % 0.1 % (0-5); HEMATOCRIT 24.8 % (42-52); MEAN CORPUSCULAR HGB 29.7 PG (27.0-31.0); MEAN CORPUSCULAR VOLUME 89.9 FL (80.0-94.0); MEAN PLATELET VOLUME 7.8 FL (7.4-10.4); PLATELET COUNT 153 /CUMM (130-400); RBC DISTRIBUTION WIDTH 16.6 % (11.5-14.5); RED BLOOD CELL CT 2.76 /CUMM (4.70-6.10); WHITE BLOOD CELL COUNT 5.7 /CUMM (4.8-10.8)
[2016-10-31 08:22] VITALS: BP 144/70
[2016-10-31 10:02] LABS: GRANULOCYTE % 87.1 % (42.2-75.2)
--- NOTE | 2016-10-31 11:10 | PN- Nephrology ---
Assessment/Plan Assessment: 1. CKD stage V, likely ESRD although there is an acute component secondary to CHF/diuretic therapy 2. Coronary artery disease status post CABG 5 with congestive heart failure 3. Hypertension, hyperlipidemia 4. Obstructive sleep apnea Suggestion: 1. Would hold diuretics today 2. Proceed with placement of a tunneled dialysis catheter by IR. This has been discussed with the patient and his ; please check INR 3. We will plan to initiate dialysis tomorrow 4. Check serum phosphorus and magnesium levels 5. Start Nephro-Becca 1 tablet daily 6. Please ask Dr. Dill to see regarding proceeding with AV fistula surgery during this admission 7. Await decision by pt. and his regarding outpatient renal and dialysis follow-up Subjective Subjective: Patient seems a little confused to me today although he is able to answer some questions appropriately. He is on high flow oxygen and denies shortness of breath or pain. No nausea or vomiting. He does not have a clear-cut understanding of end-stage renal disease or dialysis. I did, however, speak with his who does have a good grasp of the issues. The plan is to proceed with placement of a tunneled IJ dialysis catheter followed by initiation of hemodialysis. She and her have not as yet made a decision regarding where they want their follow-up to be i.e. with Dr. Zack Cross in [place] or with our group in [place]. Objective Vital Signs and I&Os Vital Signs Date Time Temp Pulse Resp B/P B/P Pulse O2 O2 Flow FiO2 Mean Ox Delivery Rate 10/31 0945 98.2 84 144/60 10/31 0944 144/60 10/31 0944 84 144/60 10/31 0905 97 Nasal 60% Cannula 10/31 0822 98.2 84 20 144/70 93 Nasal Cannula 10/31 0800 95 Nasal 65% Cannula 10/31 0406 92 Nasal 60% Cannula 10/31 0000 97 Nasal 65% Cannula 10/308 93 Nasal 60% Cannula 10/31 2247 97.9 76 20 138/70 97 Nasal 65% Cannula 10/309 76 130/70 10/30 1858 93 Nasal 60% Cannula 10/30 1717 97.6 78 22 114/60 97 10/30 1650 93 Nasal 60% Cannula 10/30 1600 96 Nasal 65% Cannula 10/30 1400 109/56 Intake & Output 10/31 1600 10/31 0400 10/30 1600 10/30 0400 10/29 1600 10/29 0400 Intake Total 200 510 240 520 480 Output Total 286 509 8557 450 650 425 Balance -600 -989 -2009 70 -170 425 Intake, IV 30 20 Intake, Oral 200 480 240 500 480 Output, Urine 190 775 4122 450 650 425 Patient 229 lb 248 lb 249 lb Weight Weight Standing Scale Briana Lift Briana Lift Measurement Method Physical Exam: General: Well-developed, elderly obese white male on high flow oxygen in NAD Skin: No rash or jaundice HEENT: Conjunctivae pale, sclerae anicteric, mucous membranes moist Neck: Without masses or thyromegaly, no supraclavicular or cervical adenopathy Chest: Clear with poor air entry bilaterally Heart: Regular rate and rhythm without S3 or rub Abdomen: Obese, soft and nontender without palpable masses or organomegaly Extremities: Without cyanosis or edema Neuro: No focal findings, coarse tremor with a few beats of asterixis Current Medications: Current Medications Sig/Tiffanie Start time Last Medication Dose Route Stop Time Status Admin Acetaminophen 650 MG Q6P PRN 10/28 2229 AC PO Albuterol Sulfate 3 ML BID 10/29 2199 AC 10/31 INH 0903 Amlodipine Besylate 10 MG DAILY 10/29 1000 AC 10/31 PO 0944 Atorvastatin Calcium 20 MG DAILY 10/29 1000 AC 10/31 PO 0945 Calcitriol 0.25 MCG AT BEDTIME 10/29 2199 AC 10/30 PO 2100 Cholecalciferol 1,000 IU DAILY 10/29 1000 AC 10/31 PO 0945 Docusate Sodium 100 MG BID 10/29 1000 AC 10/31 PO 0945 Ferrous Sulfate 325 MG BID 10/29 2219 AC 10/31 PO 0945 Furosemide 100 MG BID 10/30 2199 DC 10/31 IV 0948 Furosemide 100 MG Q8 10/29 2199 DC 10/30 IV 1407 Gabapentin 100 MG QPM 10/29 2199 AC 10/30 PO 2059 Heparin Sodium 5,000 UNIT Q8 10/28 2213 AC 10/31 (Porcine) SC 0602 Isosorbide 90 MG DAILY 10/29 1000 AC 10/31 Mononitrate PO 0944 Labetalol HCl 300 MG BID 10/29 2219 AC 10/31 PO 0945 Levothyroxine Sodium 0.05 MG DAILY 10/29 1000 AC 10/31 PO 0945 Prednisone 40 MG DAILY 10/29 1000 AC 10/31 PO 0945 Senna/Docusate Sodium 1 TAB BID 10/29 1000 AC 10/31 PO 45 Results Pertinent Lab Results: Laboratory Tests 10/31 10/30 0600 0610 Chemistry Sodium (137 - 145 mmol/L) 142 142 Potassium (3.5 - 5.1 mmol/L) 4.4 4.8 Chloride (98 - 107 mmol/L) 98 99 Carbon Dioxide (22 - 30 mmol/L) 24 26 Anion Gap (5 - 16) 19 H 16 BUN (9 - 20 mg/dL) 116 *H 96 H Creatinine (0.7 - 1.2 mg/dL) 6.8 *H 6.3 *H Estimated GFR (>60 ml/min) 8 L 8 L BUN/Creatinine Ratio (7 - 25 %) 17.1 15.2 Hematology CBC w Diff NO MAN DIFF REQ MAN DIFF ORDERED WBC (4.8 - 10.8 /CUMM) 5.7 4.3 L RBC (4.70 - 6.10 /CUMM) 2.76 L 2.82 L Hgb (14.0 - 18.0 G/DL) 8.2 L 8.2 L Hct (42 - 52 %) 24.8 L 25.6 L MCV (80.0 - 94.0 FL) 89.9 90.9 MCH (27.0 - 31.0 PG) 29.7 29.1 RDW (11.5 - 14.5 %) 16.6 H 16.6 H Plt Count (130 - 400 /CUMM) 153 138 MPV (7.4 - 10.4 FL) 7.8 8.0 Gran % (42.2 - 75.2 %) 87.1 H 86.1 H Lymphocytes % (20.5 - 51.1 %) 4.6 L 5.4 L Monocytes % (1.7 - 9.3 %) 7.9 8.3 Eosinophils % (0 - 5 %) 0.1 0.2 Basophils % (0.0 - 2.0 %) 0.3 0 L Absolute Granulocytes (1.4 - 6.5 /CUMM) 5.0 3.7 Absolute Lymphocytes (1.2 - 3.4 /CUMM) 0.3 L 0.2 L Absolute Monocytes (0.10 - 0.60 /CUMM) 0.4 0.4 Absolute Eosinophils (0.0 - 0.7 /CUMM) 0 0 Absolute Basophils (0.0 - 0.2 /CUMM) 0 0 Platelet Estimate (ADEQUATE) VERIFIED BY SMEAR Polychromasia 1+ Basophilic Stippling 1+ Anisocytosis 1+ PUBS MCHC (33.0 - 37.0 G/DL) 33.0 32.0 L 10/29 10/28 0625 1920 Chemistry Sodium (137 - 145 mmol/L) 137 Potassium (3.5 - 5.1 mmol/L) 5.0 Chloride (98 - 107 mmol/L) 97 L Carbon Dioxide (22 - 30 mmol/L) 25 Anion Gap (5 - 16) 15 BUN (9 - 20 mg/dL) 82 H Creatinine (0.7 - 1.2 mg/dL) 5.4 *H Estimated GFR (>60 ml/min) 10 L BUN/Creatinine Ratio (7 - 25 %) 15.2 Troponin I (<0.11 ng/ml) 0.03 Urines Urine Color (YEL,AMB,STR) YEL Urine Clarity (CLEAR) CLEAR Urine pH (5.0 - 8.0) 5.5 Ur Specific [place] (1.001 - 1.035) 1.020 Urine Protein (NEG,<30 MG/DL) TRACE H Urine Ketones (NEG) NEG Urine Nitrite (NEG) NEG Urine Bilirubin (NEG) NEG Urine Urobilinogen (0.1 - 1.0 EU/dl) 0.2 Ur Leukocyte Esterase (NEG) NEG Ur Microscopic SEDIMENT EXAMINED Urine Bacteria (NEG/NONE) RARE H Urine Hemoglobin (NEG) NEG Urine Glucose (N MG/DL) NEG 10/28 1733 Chemistry Sodium (137 - 145 mmol/L) 137 Potassium (3.5 - 5.1 mmol/L) 4.9 Chloride (98 - 107 mmol/L) 97 L Carbon Dioxide (22 - 30 mmol/L) 25 Anion Gap (5 - 16) 15 BUN (9 - 20 mg/dL) 80 H Creatinine (0.7 - 1.2 mg/dL) 5.4 *H Estimated GFR (>60 ml/min) 10 L BUN/Creatinine Ratio (7 - 25 %) 14.8 Glucose (65 - 99 mg/dL) 104 H Calcium (8.4 - 10.2 mg/dL) 8.6 Total Bilirubin (0.2 - 1.3 mg/dL) 0.8 AST (17 - 59 U/L) 17 ALT (21 - 72 U/L) 33 Alkaline Phosphatase (< 127 U/L) 50 Troponin I (<0.11 ng/ml) 0.02 [id number] Pept (<125 pg/mL) 04614 H Total Protein (6.3 - 8.2 g/dL) 6.8 Albumin (3.5 - 5.0 g/dL) 4.3 Globulin (1.9 - 4.2 gm/dL) 2.5 Albumin/Globulin Ratio (1.1 - 2.2 %) 1.7 Hematology CBC w Diff NO MAN DIFF REQ WBC (4.8 - 10.8 /CUMM) 4.1 L RBC (4.70 - 6.10 /CUMM) 3.01 L Hgb (14.0 - 18.0 G/DL) 8.7 L Hct (42 - 52 %) 27.5 L MCV (80.0 - 94.0 FL) 91.2 MCH (27.0 - 31.0 PG) 28.9 RDW (11.5 - 14.5 %) 16.9 H Plt Count (130 - 400 /CUMM) 139 MPV (7.4 - 10.4 FL) 7.2 L Gran % (42.2 - 75.2 %) 79.4 H Lymphocytes % (20.5 - 51.1 %) 7.8 L Monocytes % (1.7 - 9.3 %) 10.6 H Eosinophils % (0 - 5 %) 2.1 Basophils % (0.0 - 2.0 %) 0.1 Absolute Granulocytes (1.4 - 6.5 /CUMM) 3.2 Absolute Lymphocytes (1.2 - 3.4 /CUMM) 0.3 L Absolute Monocytes (0.10 - 0.60 /CUMM) 0.4 Absolute Eosinophils (0.0 - 0.7 /CUMM) 0.1 Absolute Basophils (0.0 - 0.2 /CUMM) 0 PUBS MCHC (33.0 - 37.0 G/DL) 31.7 L
[2016-10-31 11:26] LABS: PT 12.5 SEC (9.4-12.5)
--- NOTE | 2016-10-31 11:45 | PN- Cardiology ---
Subjective Subjective: The patient appears comfortable and offers no acute complaints. He is on high flow oxygen. Objective Vital Signs and I&Os Vital Signs Date Time Temp Pulse Resp B/P B/P Pulse O2 O2 Flow FiO2 Mean Ox Delivery Rate 10/31 0845 98.2 84 144/60 10/31 0944 144/60 10/31 0944 84 144/60 10/31 0905 97 Nasal 60% Cannula 10/31 0822 98.2 84 20 144/70 93 Nasal Cannula 10/31 0800 95 Nasal 65% Cannula 10/31 0406 92 Nasal 60% Cannula 10/31 0000 97 Nasal 65% Cannula 10/30 2248 93 Nasal 60% Cannula 10/30 2248 97.9 76 20 138/70 97 Nasal 65% Cannula 10/30 2059 76 130/70 10/30 1858 93 Nasal 60% Cannula 10/30 1717 97.6 78 22 114/60 97 10/30 1650 93 Nasal 60% Cannula 10/30 1600 96 Nasal 65% Cannula 10/30 1400 109/56 Intake & Output 10/31 1600 10/31 0800 10/31 0000 10/30 1600 10/30 0800 10/30 0000 Intake Total 200 510 240 0 520 Output Total 800 453 890 2422 450 Balance -600 -340 -510 -1500 70 Intake, IV 30 20 Intake, Oral 200 480 240 0 500 Output, Urine 800 963 184 7359 450 Patient 229 lb Weight Weight Standing Scale Measurement Method Physical Exam: General: no apparent distress. On supplemental oxygen. Eyes: No obvious scleral icterus. HEENT: No jugular venous distention or abnormal jugular venous pulsations. Cardiovascular: Normal intensity S1/S2. PMI not grossly displaced. Regular. Respiratory: Mildly decreased air entry bilaterally Abdomen: Soft, nontender with no guarding or rebound tenderness. Musculoskeletal: No clubbing or cyanosis noted, no edema Skin: Warm Neurologic: No gross focal deficits noted. Current Medications: Current Medications Sig/Tiffanie Start time Last Medication Dose Route Stop Time Status Admin Acetaminophen 650 MG Q6P PRN 10/280 AC PO Albuterol Sulfate 3 ML BID 10/29 2199 AC 10/31 INH 0903 Amlodipine Besylate 10 MG DAILY 10/29 1000 AC 10/31 PO 0944 Atorvastatin Calcium 20 MG DAILY 10/29 1000 AC 10/31 PO 0945 Calcitriol 0.25 MCG AT BEDTIME 10/29 2199 AC 10/30 PO 2100 Cholecalciferol 1,000 IU DAILY 10/29 1000 AC 10/31 PO 0945 Docusate Sodium 100 MG BID 10/29 1000 AC 10/31 PO 0945 Ferrous Sulfate 325 MG BID 10/29 2219 AC 10/31 PO 0945 Furosemide 100 MG BID 10/30 2199 DC 10/31 IV 0948 Furosemide 100 MG Q8 10/29 2199 DC 10/30 IV 1407 Gabapentin 100 MG QPM 10/29 2199 AC 10/30 PO 205 Heparin Sodium 5,000 UNIT Q8 10/28 2213 AC 10/31 (Porcine) SC 0602 Isosorbide 90 MG DAILY 10/29 1000 AC 10/31 Mononitrate PO 0944 Labetalol HCl 300 MG BID 10/29 2219 AC 10/31 PO 0945 Levothyroxine Sodium 0.05 MG DAILY 10/29 1000 AC 10/31 PO 0945 Multivitamins 1 TAB DAILY 11/01 1000 AC PO Prednisone 40 MG DAILY 10/29 1000 AC 10/31 PO 0945 Senna/Docusate Sodium 1 TAB BID 10/29 1000 AC 10/31 PO 0945 Results Last 48 Hrs of Labs/Mics: Laboratory Tests 10/31/16 1104: PT 12.5, INR 1.19 H 10/31/16 0600: Anion Gap 19 H, Estimated GFR 8 L, BUN/Creatinine Ratio 17.1, CBC w Diff NO MAN DIFF REQ, RBC 2.76 L, MCV 89.9, MCH 29.7, RDW 16.6 H, MPV 7.8, Gran % 87.1 H, Lymphocytes % 4.6 L, Monocytes % 7.9, Eosinophils % 0.1, Basophils % 0.3, Absolute Granulocytes 5.0, Absolute Lymphocytes 0.3 L, Absolute Monocytes 0.4, Absolute Eosinophils 0, Absolute Basophils 0, PUBS MCHC 33.0 10/30/16 0610: Anion Gap 16, Estimated GFR 8 L, BUN/Creatinine Ratio 15.2, CBC w Diff MAN DIFF ORDERED, RBC 2.82 L, MCV 90.9, MCH 29.1, RDW 16.6 H, MPV 8.0, Gran % 86.1 H, Lymphocytes % 5.4 L, Monocytes % 8.3, Eosinophils % 0.2, Basophils % 0 L, Absolute Granulocytes 3.7, Absolute Lymphocytes 0.2 L, Absolute Monocytes 0.4, Absolute Eosinophils 0, Absolute Basophils 0, Platelet Estimate VERIFIED BY SMEAR, Polychromasia 1+, Basophilic Stippling 1+, Anisocytosis 1+, PUBS MCHC 32.0 L Recent Imaging Studies: Telemetry tracings were personally reviewed and shows sinus rhythm Assessment/Plan Assessment/Plan 1. Chronic diastolic heart failure 2. Coronary disease by history status post coronary bypass surgery 3. End-stage renal disease with plan for dialysis 4. Chronic anemia 5. Hypertension 6. Hyperlipidemia 7. Obstructive sleep apnea/hypoventilation 8. Mild to moderate mitral/aortic stenosis by recent echocardiogram 9. History of significant carotid stenosis being managed medically by vascular The patient remains on nasal cannula oxygen but currently offers no complaints. Nephrology is following and the patient is planned to initiate on dialysis. Agree with holding the diuretics for now as the patient does not appear to be in decompensated heart failure. He appears hemodynamically stable. Would continue on daily statin therapy. Given his history of coronary artery disease and carotid stenosis would recommend the patient be on low-dose daily aspirin in the absence of any obvious contraindications. Gonzalo Lamas MD FAC Continue telemetry? Yes
--- NOTE | 2016-10-31 12:02 | Cons- Vascular Surgery ---
General Information and HPI Consulting Request Date of Consult: 10/31/16 Requested By: LUANA FLOR MD Reason for Consult: CK Disease and AVF creation Source of Information: patient Exam Limitations: confusion History of Present Illness: 86 year old known to Dr. Ji with advancing kidney disease and CHF. Called to evaluate for AVF creation. Pt. is right handed. Allergies/Medications Allergies: Coded Allergies: NO KNOWN ALLERGIES (09/28/15) Home Med List: Amlodipine Besylate 10 MG TABLET 0.5 TAB PO BID BP (Reported) Atorvastatin Calcium 20 MG TABLET 1 TAB PO DAILY CHOLESTEROL (Reported) Calcitriol 0.25 MCG CAPSULE 1 CAP PO AT BEDTIME KIDNEY DISEASE, HYPOCALCEMIA (Reported) Cholecalciferol (Vitamin D3) (Vitamin D) 1,000 UNIT TABLET 1 TAB PO DAILY SUPPLEMENT (Reported) Docusate Sodium (Colace) 100 MG CAPSULE 1 CAP PO BID STOOL SOFTENER (Reported ) Epoetin Earnest (Procrit) 40,000 UNIT/ML VIAL 40,000 UNIT SC Q2W ANEMIA ( Reported) Ezetimibe (Zetia) 10 MG TABLET 1 TAB PO DAILY CHOLESTEROL (Reported) Ferrous Sulfate (Feosol) 325 MG (65 MG IRON) TABLET 2 TAB PO BID ANEMIA ( Reported) Furosemide (Lasix) 80 MG TABLET 1 TAB PO AD DIURETIC (Reported) Gabapentin 300 MG CAPSULE 1 CAP PO QPM NERVE PAIN (Reported) Hydralazine HCl 100 MG TABLET 1 TAB PO BID BP (Reported) Isosorbide Mononitrate (Isosorbide Mononitrate ER) 30 MG TAB.ER.24H 90 MG PO DAILY chest pain Labetalol HCl 300 MG TABLET 1 TAB PO BID BP (Reported) Levothyroxine Sodium 50 MCG TABLET 1 TAB PO DAILY THYROID (Reported) Sennosides (Senokot) 8.6 MG TABLET 1 TAB PO DAILY GI (Reported) Current Medications: Current Medications Sig/Tiffanie Start time Last Medication Dose Route Stop Time Status Admin Acetaminophen 650 MG Q6P PRN 10/28 2230 AC PO Albuterol Sulfate 3 ML BID 10/29 2200 AC 10/31 INH 0903 Amlodipine Besylate 10 MG DAILY 10/29 1000 AC 10/31 PO 0944 Atorvastatin Calcium 20 MG DAILY 10/29 1000 AC 10/31 PO 0945 Calcitriol 0.25 MCG AT BEDTIME 10/29 2200 AC 10/30 PO 2100 Cholecalciferol 1,000 IU DAILY 10/29 1000 AC 10/31 PO 0945 Docusate Sodium 100 MG BID 10/29 1000 AC 10/31 PO 0945 Ferrous Sulfate 325 MG BID 10/28 2220 AC 10/31 PO 0945 Furosemide 100 MG BID 10/30 2200 DC 10/31 IV 0948 Furosemide 100 MG Q8 10/29 2200 DC 10/30 IV 1407 Gabapentin 100 MG QPM 10/29 2200 AC 10/30 PO 2059 Heparin Sodium 5,000 UNIT Q8 10/28 2214 AC 10/31 (Porcine) SC 0602 Isosorbide 90 MG DAILY 10/29 1000 AC 10/31 Mononitrate PO 0944 Labetalol HCl 300 MG BID 10/28 2220 AC 10/31 PO 0945 Levothyroxine Sodium 0.05 MG DAILY 10/29 1000 AC 10/31 PO 0945 Multivitamins 1 TAB DAILY 11/01 1000 AC PO Prednisone 40 MG DAILY 10/29 1000 AC 10/31 PO 0945 Senna/Docusate Sodium 1 TAB BID 10/29 1000 AC 10/31 PO 0945 Past History Medical History Blood Transfusion Hx: Yes Neurological: TIA, shingles- left flank EENT: NONE Cardiovascular: CAD (s/p CABG x 5), diastolic CHF, hypertension, hyperlipidemia, atrial tachycardia Respiratory: pneumonia, WEARS O2 Gastrointestinal: NONE Hepatic: NONE Renal: chronic kidney disease (stage 4) Musculoskeletal: chronic back pain (implanted stimulator device), osteoarthritis Psychiatric: NONE Endocrine: hypothyroidism Blood Disorders: ANEMIA BLOOD TRANSFUSIONS Cancer(s): colon/rectal cancer 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 FATHER, , Age 70; Cause: Myocardial infarction. Relation not specified for: colon cancer in mother Psychosocial History Where Do You Live? Home Services at Home: Nursing, Physical Therapy Primary Language: Hebrew Smoking Status: Former Smoker ETOH Use: denies use Illicit Drug Use: denies illicit drug use Living Will? yes Power of Call Or Contact Centre Operator/HCP? unknown Functional Ability ADLs Independent: dressing, eating, toileting, bathing. Ambulation: independent IADLs Independent: shopping, housework, finances, food prep, telephone, transportation , medication admin. Employment History Retired? yes Review of Systems Review of Systems: Denies major complaints Review of Systems Constitutional: Reports: see HPI. Exam & Diagnostic Data Vital Signs and I&O Vital Signs Date Time Temp Pulse Resp B/P B/P Pulse O2 O2 Flow FiO2 Mean Ox Delivery Rate 10/31 944 98.2 84 144/60 10/31 0944 144/60 10/31 0944 84 144/60 10/31 0905 97 Nasal 60% Cannula 10/31 0822 98.2 84 20 144/70 93 Nasal Cannula 10/31 0800 95 Nasal 65% Cannula 10/31 0406 92 Nasal 60% Cannula 10/31 0000 97 Nasal 65% Cannula 10/30 2248 93 Nasal 60% Cannula 10/30 2248 97.9 76 20 138/70 97 Nasal 65% Cannula 10/30 2059 76 130/70 10/30 1858 93 Nasal 60% Cannula 10/30 1717 97.6 78 22 114/60 97 10/30 1650 93 Nasal 60% Cannula 10/30 1600 96 Nasal 65% Cannula 10/30 1400 109/56 Intake & Output 10/31 1600 10/31 0800 10/31 0000 10/30 1600 10/30 0800 10/30 0000 Intake Total 200 510 240 0 520 Output Total 800 986 443 5945 450 Balance -600 -340 -510 -1500 70 Intake, IV 30 20 Intake, Oral 200 480 240 0 500 Output, Urine 800 210 086 4162 450 Patient 229 lb Weight Weight Standing Scale Measurement Method Physical Exam: Bilateral UE exam is stable, + radial pulses bilaterally, palpable veins at wrist and upper arm Physical Exam General Appearance: well developed/nourished, alert, awake Extremities: normal inspection, normal capillary refill, no edema Assessment/Plan Assessment/Plan A. CK disease Stage V- AVF requested 1.) Will discuss with Dr. Ji timing of intervention 2.) Will perform as inpatient as long as pt. is stable 3.) Medical/cardiac clearence requested Consult Acknowledgment - Thank you for your consult request.
[2016-10-31 15:30] VITALS: BP 124/62
--- NOTE | 2016-10-31 16:33 | ULTRASOUND REPORT ---
PROCEDURE: ULTRASOUND AND FLUOROSCOPICALLY GUIDED RIGHT INTERNAL JUGULAR VEIN TUNNELED PERMACATHETER PLACEMENT INTERVENTIONAL RADIOLOGIST: Dhiraj Mccartney M.D. CLINICAL HISTORY: 86-year-old male with renal failure. Tunneled hemodialysis catheter requested. COMPARISON: Tunneled hemodialysis catheter placement 09/07/[address] MEDICATION: lidocaine 1% subcutaneously lidocaine 1% with epinephrine subcutaneously FLUOROSCOPIC TIME: 0.3 minutes TECHNIQUE: Informed consent was obtained from the patient's prior to the procedure. During this process, the procedure and potential alternatives were explained to the patient and his along with the intended outcome and benefits. The risks of the procedure, including the possibility of an unsuccessful procedure, as well as the risk of not doing the procedure were discussed. The patient and his were given the opportunity to ask questions regarding the procedure. A signed consent form which documents this discussion was placed in the medical record. Following informed consent the patient was placed supine on the fluoroscopic table. A timeout procedure was performed. The right neck and chest were prepped and draped in usual sterile fashion. All elements of maximal sterile barrier technique were followed including use of cap, mask, sterile gown, sterile gloves, a sterile full body drape and hand hygiene. The skin was prepared with 2% chlorhexidine for cutaneous antisepsis and sterile ultrasound preparation with sterile gel and probe cover was performed when applicable. Using ultrasound guidance, the right internal jugular vein was localized. Ultrasound was utilized to assess the vascular structures for access. A standard puncture into the right internal jugular vein was performed with a Micro-Stick system. Measurements were taken and the wire advanced down the IVC to confirm venous placement. 1% lidocaine with epinephrine was placed along the anterior chest wall tunneling site. A linear incision was made. The 23 cm tip to cuff tunneled hemodialysis catheter was tunneled in the subcutaneous tissues, exiting at the venotomy site. Serial dilatation was performed over the 0.035 inches wire. A peel-away sheath was placed over the wire and the catheter advanced down the peel-away sheath. The peel-away sheath was removed. Fluoroscopic imaging confirmed location of the catheter tip within the right atrium. Dermabond was utilized to close the venotomy site. Silk suture was utilized for catheter securement. The catheter was flushed with heparin split between the 2 lumens for dwell. The patient tolerated the procedure well. The patient was transferred to the recovery room in good condition. ULTRASOUND-GUIDED VASCULAR ACCESS: Ultrasound was used to identify the right internal jugular vein. The right internal jugular vein was confirmed to be patent. Real time imaging confirmed needle access into the right internal jugular vein. An image was saved for permanent recording in PACS. IMPRESSION: Successful placement of 23 cm tip to cuff tunneled hemodialysis catheter using fluoroscopic and ultrasound guidance.
--- NOTE | 2016-10-31 18:29 | Discharge Summary ---
See Addendum Visit Information Visit Dates Admission Date: 10/28/16 Discharge Date: 11/08/16 Hospital Course Course Attending Physician: LUANA FLOR MD Primary Care Physician: TAI OSMAN APRN Consulting Request: 1 Consulting Specialty: Cardiology Consulting Physician: Juan J Lamas MD Reason for Consult: CAD Consulting Request: 2 Consulting Specialty: Nephrology Consulting Physician: Salvador Zepeda MD Reason for Consult: acute on CKD stage V Consulting Request: 3 Consulting Specialty: Pulmonary Disease Consulting Physician: Dr. Currie Reason for Consult: acute hypoxic respi failure Hospital Course: Mr Martinez is an 86-year-old male with past medical history of CAD status post CABG, heart failure with preserved ejection fraction, hypothyroidism, CKD- stage 5 is being evaluated for worsening bilateral lower extremity edema and 8 pound weight gain despite being on furosemide likely due to worsening renal function and volume overload. Below is the problem list and plan: 1. Acute on chronic respiratory failure likely multifactorial-volume overload, acute on CKD and diastolic HF, pulmonary HTN, or dietary non-compliance and committee acquired pneumonia. Patient initially diuresed with high dose of furosemide, which was discontinued due to worsening kidney function with Cr. 6.8. Patient started on hemodialysis but still remained hypoxic. CT chest was done which revealed Lt. upper lobe consolidation suggestive of pneumonia. Started on iv ceftriaxone and Azithro with significant improvement. Completed total 7 days course of abx. Check daily weights. Patient has obstructive sleep apnea, and severe pulmonary hypertension which could be contributing to decompensation. 2. GURPREET on CKD stage 5-patient noted having worsening renal function. Initially he was diuresis aggressively resulting in further worsening renal function with BUN 116, serum creatinine 6.8. As per nephrology recommendation, Tunneled Tal cath placed and started patient on hemodialysis with significant improvement in kidney function. Turner Machine-Salvador Zepeda MD advising. In view of long-term hemodialysis, a vascular consult up to a with Dr. Dill to have aVF creation and as per vascular surgery/nephrology it can be done as outpatient when patient is medically stable. Patient started on Nephro-Becca and Sevelamer 800mg with meals. 3. History of CAD, hypertension- patient maintain on home dose Imdur, labetalol and amlodipine. Juan J Lamas MD cardiology followed patient during course of hospital stay and recommended to start Aspirin if there is no contraindication. 4. Normocytic anemia secondary to chronic kidney disease- likely anemia of chronic disease in setting of CKD. As per nephrology recommendation patient received Epogen.H&H remained stable on discharge. 5. Chronic back pain- Continue gabapentin at a lower dose 100 mg at bedtime due to worsening kidney function 6. Hypothyroidism- Continue levothyroxine 7. DVT prophylaxis- Subcutaneous heparin 8. Full code Allergies: Coded Allergies: NO KNOWN ALLERGIES (09/28/15) Significant Procedures: Tal cath placement Pertinent Lab Results: Laboratory Tests 11/07/16 0730: Anion Gap 11, Estimated GFR 17 L, BUN/Creatinine Ratio 13.5, Glucose 87, Calcium 8.1 L, Gln-D-Cnwfrddsnlp Pept 48021 H, PTH Intact 271.6 H, CBC w Diff NO MAN DIFF REQ, RBC 3.02 L, MCV 89.5, MCH 29.0, RDW 16.2 H, MPV 7.5, Gran % 72.4, Lymphocytes % 11.3 L, Monocytes % 10.1 H, Eosinophils % 5.9 H, Basophils % 0.3, Absolute Granulocytes 3.1, Absolute Lymphocytes 0.5 L, Absolute Monocytes 0.4, Absolute Eosinophils 0.3, Absolute Basophils 0, PUBS MCHC 32.4 L 11/07/16 0700: Vig-A-Bjkvxcdusvs Pept Cancelled, CBC w Diff Cancelled, WBC Cancelled, RBC Cancelled, Hgb Cancelled, Hct Cancelled, MCV Cancelled, MCH Cancelled, RDW Cancelled, Plt Count Cancelled, MPV Cancelled, PUBS MCHC Cancelled 11/07/16 0626: Anion Gap 11, Estimated GFR 17 L, BUN/Creatinine Ratio 13.8, Phosphorus 3.8, Magnesium 2.3 11/06/16 0710: Anion Gap 12, Estimated GFR 17 L, BUN/Creatinine Ratio 12.6, CBC w Diff NO MAN DIFF REQ, RBC 3.02 L, MCV 89.8, MCH 28.8, RDW 15.9 H, MPV 7.9, Gran % 67.5, Lymphocytes % 11.7 L, Monocytes % 13.3 H, Eosinophils % 7.0 H, Basophils % 0.5, Absolute Granulocytes 2.5, Absolute Lymphocytes 0.4 L, Absolute Monocytes 0.5, Absolute Eosinophils 0.3, Absolute Basophils 0, PUBS MCHC 32.0 L 11/05/16 0754: Anion Gap 12, Estimated GFR 21 L, BUN/Creatinine Ratio 14.1, CBC w Diff NO MAN DIFF REQ, RBC 2.89 L, MCV 89.7, MCH 29.2, RDW 16.3 H, MPV 7.9, Gran % 71.4, Lymphocytes % 10.2 L, Monocytes % 11.5 H, Eosinophils % 6.4 H, Basophils % 0.5, Absolute Granulocytes 2.7, Absolute Lymphocytes 0.4 L, Absolute Monocytes 0.4, Absolute Eosinophils 0.2, Absolute Basophils 0, PUBS MCHC 32.6 L Disposition Summary Disposition Principal Diagnosis: 1. Acute on chronic kidney disease stage V requiring HD 2. Acute hypoxic respiratory failure 3. Community-acquired pneumonia 4. Anemia of chronic disease Additional Diagnosis: 1. CK D 2. CAD 3. Sleep apnea 4. Hypothyroidism 5. Hypertension Discharge Disposition: SNF Discharge Instructions General Discharge Information Code Status: Full Code Patient's Diet: Renal dialysis diet Patient's Activity: As tolerated physical therapy Follow-Up Instructions/Appts: Please follow-up with primary care physician within a week of discharge. Please follow-up with cardiology Dr. Juan J Lamas MD within a week of discharge. Please follow-up with nephrology Salvador Zepeda MD within a week of discharge. Medications at Discharge Discharge Medications: Stop taking the following medications: Hydralazine HCl (Hydralazine HCl) 100 MG TABLET ORAL TWICE DAILY Qty = 60 Amlodipine Besylate (Amlodipine Besylate) 10 MG TABLET ORAL TWICE DAILY Furosemide (Lasix) 80 MG TABLET ORAL As Directed Gabapentin (Gabapentin) 300 MG CAPSULE ORAL Every night Qty = 30 Calcitriol (Calcitriol) 0.25 MCG CAPSULE ORAL AT BEDTIME Qty = 90 Continue taking these medications: Ezetimibe (Zetia) 10 MG TABLET 1 Tablet ORAL DAILY Comments: Last Taken: NOT GIVEN IN HOSPITAL Time: Atorvastatin Calcium (Atorvastatin Calcium) 20 MG TABLET 1 Tablet ORAL DAILY Qty = 90 Comments: Last Taken: 11/08/16 Time: 6:00 PM Docusate Sodium (Colace) 100 MG CAPSULE 1 Capsule ORAL TWICE DAILY Comments: Last Taken: 11/08/16 Time: 9:25 AM Labetalol HCl (Labetalol HCl) 300 MG TABLET 1 Tablet ORAL TWICE DAILY Qty = 60 Comments: Last Taken: 11/08/16 Time: 9:25 AM Ferrous Sulfate (Feosol) 325 MG (65 MG IRON) TABLET 2 Tablet ORAL TWICE DAILY Comments: Last Taken: 11/08/16 Time: 9:25 AM Sennosides (Senokot) 8.6 MG TABLET 1 Tablet ORAL DAILY Comments: Last Taken: 11/02/16 Time: 10:15 PM Levothyroxine Sodium (Levothyroxine Sodium) 50 MCG TABLET 1 Tablet ORAL DAILY Qty = 30 Comments: Last Taken: 11/08/16 Time: 9:25 AM Cholecalciferol (Vitamin D3) (Vitamin D) 1,000 UNIT TABLET 1 Tablet ORAL DAILY Comments: Last Taken: 11/08/16 Time: 9:25 AM Isosorbide Mononitrate (Isosorbide Mononitrate ER) 30 MG TAB.ER.24H 90 Milligram ORAL DAILY Qty = 60 Comments: Last Taken: 11/08/16 Time: 9:25 AM Epoetin Earnest (Procrit) 40,000 UNIT/ML VIAL 40,000 Unit Inject into fatty tissue EVERY 2 WEEKS Start taking the following new medications: Amlodipine Besylate (Norvasc) 10 MG TABLET 10 Milligram ORAL DAILY Qty = 30 No Refills Comments: Last Taken: 11/08/16 Time: 9:25 AM Aspirin (Aspirin*) 81 MG TAB.CHEW 1 Tablet ORAL DAILY Qty = 30 No Refills Comments: Last Taken: 11/08/16 Time: 9:25 AM Gabapentin (Gabapentin) 100 MG CAPSULE 1 Tablet ORAL Every night Qty = 30 No Refills Comments: Last Taken: 11/07/16 Time: 9:10 PM Sevelamer Carbonate (Renvela) 800 MG TABLET 1 Tablet ORAL WITH MEALS Qty = 30 No Refills Comments: Last Taken: 11/08/16 Time: 6:00 PM Nephro-Vitamins (Nephro-Becca Tablet) 0.8 MG TABLET 1 Tablet ORAL DAILY Qty = 30 No Refills Comments: Last Taken: 11/08/16 Time: 9:25 AM Furosemide (Lasix) 80 MG TABLET 1 Tablet ORAL As Directed Qty = 30 No Refills Instructions: please take 1 tab on non-dialysis day. Comments: Last Taken: NOT GIVEN IN HOSPITAL Time: Copies To: MARICEL BAIN,JUAN J; TAI OSMAN APRN; BRAYAN BAIN,SALVADOR Lawson; GABY BAIN, CHELSEA Attending MD Review Statement Documenting Attending: BASIA BAIN,LUANA
[2016-11-01] VITALS: BP 118/64
--- NOTE | 2016-11-01 07:16 | PN- Housestaff ---
TANA COLE 11/01/16 0715: Subjective Follow-up For: - GURPREET on CKD - Fluid overload Complaints: no complaints Tele-Events Since Last Visit: - NSR, first degree heart block, HR 76-78, SD 0.24. No overnight tele events. Subjective: Pt was lethargic this am. Arousable to verbal stimuli. No chest pain, no shortness of breath. Currently on high flow oxygen. He was on high flow oxygen, and vitals were stable overnight. Remained afebrile. Review of Systems Constitutional: Reports: see HPI. Objective Last 24 Hrs of Vital Signs/I&O Vital Signs Date Time Temp Pulse Resp B/P B/P Pulse O2 O2 Flow FiO2 Mean Ox Delivery Rate 11/01 0204 92 Nasal 50% Cannula 11/01 0000 93 Nasal 50% Cannula 10/31 2227 91 Nasal 50% Cannula 10/31 2136 78 138/70 10/31 1900 93 Nasal 55% Cannula 10/31 1600 Nasal Cannula 10/31 1600 90 Nasal 55% Cannula 10/31 1530 99.0 82 18 124/62 93 Nasal Cannula 10/31 1424 92 Nasal 50% Cannula 10/31 0945 98.2 84 144/60 05/ 0944 144/60 05/ 0944 84 144/60 05/ 0905 97 Nasal 60% Cannula 10/31 0822 98.2 84 20 144/70 93 Nasal Cannula 10/31 0800 95 Nasal 65% Cannula Intake & Output 11/01 0800 11/01 0000 05/01 1600 Intake Total 360 240 Output Total 640 Balance 360 -400 Intake, Oral 360 240 Output, Urine 640 Patient 229 lb Weight Physical Exam General Appearance: No Acute Distress Other Physical Findings: General Exam: lethargic, Ox3, No acute distress, Skin: No rashes, no breakdown HEENT: PERRLA, EOMI Neck: Supple, No JVD No cervical lymphadenopathy CVS: Reg Rate, Normal S1,S2, No MGR Resp: Normal air entry, no ronchi/rales Abdomen: Soft, No tenderness, Normal Bowel Sounds Neuro: Normal Speech, Strength 5/5 b/l x 4 extremities, Sensation intact, CN III -XII NL, Reflexes 2+ Extremities: No cyanosis, pedal edema, asael cath in place w/o any erythema or tenderness. Current Medications: Current Medications Sig/Tiffanie Start time Last Medication Dose Route Stop Time Status Admin Acetaminophen 650 MG Q6P PRN 10/28 2230 AC PO Albuterol Sulfate 3 ML BID 10/29 2200 AC 10/31 INH 1900 Amlodipine Besylate 10 MG DAILY 10/29 1000 AC 10/31 PO 0944 Atorvastatin Calcium 20 MG DAILY 10/29 1000 AC 10/31 PO 0945 Calcitriol 0.25 MCG AT BEDTIME 10/29 2199 AC 10/31 PO 2136 Cholecalciferol 1,000 IU DAILY 10/29 1000 AC 10/31 PO 0945 Docusate Sodium 100 MG BID 10/29 1000 AC 10/31 PO 2136 Ferrous Sulfate 325 MG BID 10/28 2220 AC 10/31 PO 2136 Furosemide 100 MG BID 10/30 2200 DC 10/31 IV 0948 Gabapentin 100 MG QPM 10/29 2199 AC 10/31 PO 2135 Heparin Sodium 0 .STK-MED ONE 10/31 1400 DC (Porcine) IV Heparin Sodium 5,000 UNIT Q8 10/28 2214 AC 10/31 (Porcine) SC 2136 Isosorbide 90 MG DAILY 10/29 1000 AC 10/31 Mononitrate PO 0944 Labetalol HCl 300 MG BID 10/28 2220 AC 10/31 PO 2136 Levothyroxine Sodium 0.05 MG DAILY 10/29 1000 AC 10/31 PO 0945 Lidocaine 0 .STK-MED ONE 10/31 1400 DC .ROUTE Lidocaine/Epinephrine 0 .STK-MED ONE 10/31 1400 DC .ROUTE Multivitamins 1 TAB DAILY 11/01 1000 AC PO Polyethylene Glycol 17 GM DAILY 10/31 1727 AC PO Prednisone 40 MG DAILY 10/29 1000 DC 10/31 PO 0945 Senna/Docusate Sodium 1 TAB BID PRN 10/31 1730 AC PO Senna/Docusate Sodium 1 TAB BID 10/29 1000 DC 10/31 PO 0945 Last 24 Hrs of Lab/Jamel Results Last 24 Hrs of Labs/Mics: Laboratory Tests 10/31/16 1104: PT 12.5, INR 1.19 H Assessment/Plan Assessment: Mr Martinez is an 86-year-old male with past medical history of CAD status post CABG, heart failure with preserved ejection fraction, hypothyroidism, CKD- stage 5 is being evaluated for worsening bilateral lower extremity edema and 8 pound weight gain despite being on furosemide likely due to worsening renal function and volume overload. Below is the problem list and plan: 1. Acute on chronic respiratory failure likely multifactorial-volume overload, acute on CKD and diastolic HF, pulmonary HTN, or dietary non-compliance. Patient initially diuresed with high dose of furosemide, which was discontinued this a.m. Worsening renal function serum creatinine 6.8. Check daily weights. Patient has obstructive sleep apnea, and severe pulmonary hypertension which could be contributing to decompensation. 2. GURPREET on CKD stage 5-worsening renal function. BUN 116, serum creatinine 7.2. Tunneled Asael cath placed today. Hemodialysis in the a.m. [facility] Manager-Salvador Zepeda MD advising. In view of long-term hemodialysis, a vascular consult has been placed with Dr. Dill to have aVF placed on 11/03/16. Continue calcitriol and Epogen. 3. History of CAD, hypertension- Continue Imdur, labetalol and amlodipine. Juan J Lamas MD advising. Aspirin could be started after a decision is made about placement of aVF. 4. Normocytic anemia secondary to chronic kidney disease- likely anemia of chronic disease. Received Epogen on Monday. H&H stable at this time. 5. Chronic back pain- Continue gabapentin at a lower dose 100 mg at bedtime due to worsening kidney function. May discontinue it, if the pt continues to be lethargic. 6. Hypothyroidism- Continue levothyroxine 7. DVT prophylaxis- Subcutaneous heparin 8. Full code Problem List: 1. Pulmonary vascular congestion 2. CHF (congestive heart failure) 3. End stage renal disease 4. Volume overload 5. Obstructive sleep apnea Pain Ratin Pain Location: none Pain Goal: Pain 4 or less Pain Plan: tylenol prn Tomorrow's Labs & Rationales: cbc bep mg kimberly FLOR MD,LUANA 11/01/16 1459: Attending MD Review Statement Attending Statement Attending MD Statement: examined this patient, discuss w/resident/PA/DIRECTOR VETERINARY, agreed w/resident/PA/DIRECTOR VETERINARY, reviewed EMR data (avail), discussed with nursing, discussed with case mgmt, reviewed images, amended to note Attending Assessment/Plan: Patient seen and examined, denies any complaints,, just wants to sleep. Got the Asael cath done yesterday. getting HD today. Vital Signs Date Time Temp Pulse Resp B/P B/P Pulse O2 O2 Flow FiO2 Mean Ox Delivery Rate 11/01 1456 92 Nasal 50% Cannula 11/01 1125 79 132/68 11/01 1124 79 132/68 11/01 1124 79 132/68 11/01 0839 92 Nasal 50% Cannula 11/01 0800 98.5 79 22 132/68 93 11/01 0204 92 Nasal 50% Cannula 11/01 0000 98.1 78 22 118/64 93 Nasal 40% Cannula 11/01 0000 93 Nasal 50% Cannula 10/31 2227 91 Nasal 50% Cannula 10/31 2136 78 138/70 10/31 1900 93 Nasal 55% Cannula 10/31 1600 Nasal Cannula 10/31 1600 90 Nasal 55% Cannula 10/31 1530 99.0 82 18 124/62 93 Nasal Cannula On exam; sleepy, nad. CV; s1,s2, rrr, + systolic murmur. Resp; clear. Abd; soft, nt, bs+ ext; no edema. Laboratory Tests 11/01 11/01 1215 0807 Chemistry Sodium (137 - 145 mmol/L) 144 Potassium (3.5 - 5.1 mmol/L) 4.5 Chloride (98 - 107 mmol/L) 99 Carbon Dioxide (22 - 30 mmol/L) 25 Anion Gap (5 - 16) 19 H BUN (9 - 20 mg/dL) 125 *H Creatinine (0.7 - 1.2 mg/dL) 7.2 *H Estimated GFR (>60 ml/min) 7 L BUN/Creatinine Ratio (7 - 25 %) 17.4 Hematology CBC w Diff NO MAN DIFF REQ WBC (4.8 - 10.8 /CUMM) 5.7 RBC (4.70 - 6.10 /CUMM) 2.84 L Hgb (14.0 - 18.0 G/DL) 8.1 L Hct (42 - 52 %) 25.4 L MCV (80.0 - 94.0 FL) 89.5 MCH (27.0 - 31.0 PG) 28.6 RDW (11.5 - 14.5 %) 16.5 H Plt Count (130 - 400 /CUMM) 153 MPV (7.4 - 10.4 FL) 7.6 Gran % (42.2 - 75.2 %) 86.8 H Lymphocytes % (20.5 - 51.1 %) 4.3 L Monocytes % (1.7 - 9.3 %) 8.8 Eosinophils % (0 - 5 %) 0 Basophils % (0.0 - 2.0 %) 0.1 Absolute Granulocytes (1.4 - 6.5 /CUMM) 4.9 Absolute Lymphocytes (1.2 - 3.4 /CUMM) 0.2 L Absolute Monocytes (0.10 - 0.60 /CUMM) 0.5 Absolute Eosinophils (0.0 - 0.7 /CUMM) 0 Absolute Basophils (0.0 - 0.2 /CUMM) 0 PUBS MCHC (33.0 - 37.0 G/DL) 31.9 L Serology Hep Bs Antigen (NONREACTIVE) NONREACTIVE Hep Bs Antibody (NONREACTIVE) NONREACTIVE A/P; 86 y/o M with pmh sig for CAD status post CABG, heart failure with preserved ejection fraction, hypothyroidism, stage V CKD, admitted with weight gain, decreased urination, acute on chronic renal failure, fluid overload and acute hypoxic respiratory failure. Patient to get started on dialysis today. Diuretics were held as of yesterday. Ultimately he will require AV fistula. If he is deemed chronic, then he will need an outpatient dialysis slot. Please start the patient on prednisone taper. Last dose of prednisone 40 mg was given yesterday and after that he has not received any doses. Continue on other current medications. PT evaluation should be obtained. DVT prophylaxis: Heparin subcutaneous.
--- NOTE | 2016-11-01 07:45 | PN- Student ---
Subjective Subjective: IP Day #5 for 86 yo male. Per nurse, no overnight events. Pt is afebrile, vital signs stable. Pt seen this morning, asleep, unable to rouse for interview. Tal cath placed yesterday. Objective Objective: Vital Signs Date Time Temp Pulse Resp B/P B/P Pulse O2 O2 Flow FiO2 Mean Ox Delivery Rate 11/01 0839 92 Nasal 50% Cannula 11/01 0800 98.5 79 22 132/68 93 11/01 0204 92 Nasal 50% Cannula 11/01 0000 98.1 78 22 118/64 93 Nasal 40% Cannula 11/01 0000 93 Nasal 50% Cannula 10/31 2227 91 Nasal 50% Cannula 10/31 2136 78 138/70 10/31 1900 93 Nasal 55% Cannula 10/31 1600 Nasal Cannula 10/31 1600 90 Nasal 55% Cannula 10/31 1530 99.0 82 18 124/62 93 Nasal Cannula 10/31 1424 92 Nasal 50% Cannula Intake & Output 11/01 1600 11/01 0800 11/01 0000 Intake Total 360 360 Output Total 1000 Balance -640 360 Intake, Oral 360 360 Output, Urine 1000 Patient 236 lb Weight Weight Briana Lift Measurement Method Gen: asleep, unable to wake, on high flow O2 CV: S1S2, holosystolic murmur Lung: limited exam Abd: obese abdomen, non-distended, quiet abdomen Skin: warm, dry, well-perfused Ext: DP pulse palpated, no peripheral edema noted Weight: 236lbs Results Results: Laboratory Tests Laboratory Tests 11/01 806 Chemistry Sodium (137 - 145 mmol/L) 144 Potassium (3.5 - 5.1 mmol/L) 4.5 Chloride (98 - 107 mmol/L) 99 Carbon Dioxide (22 - 30 mmol/L) 25 Anion Gap (5 - 16) 19 H BUN (9 - 20 mg/dL) 125 *H Creatinine (0.7 - 1.2 mg/dL) 7.2 *H Estimated GFR (>60 ml/min) 7 L BUN/Creatinine Ratio (7 - 25 %) 17.4 Hematology CBC w Diff NO MAN DIFF REQ WBC (4.8 - 10.8 /CUMM) 5.7 RBC (4.70 - 6.10 /CUMM) 2.84 L Hgb (14.0 - 18.0 G/DL) 8.1 L Hct (42 - 52 %) 25.4 L MCV (80.0 - 94.0 FL) 89.5 MCH (27.0 - 31.0 PG) 28.6 RDW (11.5 - 14.5 %) 16.5 H Plt Count (130 - 400 /CUMM) 153 MPV (7.4 - 10.4 FL) 7.6 Gran % (42.2 - 75.2 %) 86.8 H Lymphocytes % (20.5 - 51.1 %) 4.3 L Monocytes % (1.7 - 9.3 %) 8.8 Eosinophils % (0 - 5 %) 0 Basophils % (0.0 - 2.0 %) 0.1 Absolute Granulocytes (1.4 - 6.5 /CUMM) 4.9 Absolute Lymphocytes (1.2 - 3.4 /CUMM) 0.2 L Absolute Monocytes (0.10 - 0.60 /CUMM) 0.5 Absolute Eosinophils (0.0 - 0.7 /CUMM) 0 Absolute Basophils (0.0 - 0.2 /CUMM) 0 PUBS MCHC (33.0 - 37.0 G/DL) 31.9 L . 10/31/16 1104: PT 12.5, INR 1.19 H 10/31/16 0600: Anion Gap 19 H, Estimated GFR 8 L, BUN/Creatinine Ratio 17.1, CBC w Diff NO MAN DIFF REQ, RBC 2.76 L, MCV 89.9, MCH 29.7, RDW 16.6 H, MPV 7.8, Gran % 87.1 H, Lymphocytes % 4.6 L, Monocytes % 7.9, Eosinophils % 0.1, Basophils % 0.3, Absolute Granulocytes 5.0, Absolute Lymphocytes 0.3 L, Absolute Monocytes 0.4, Absolute Eosinophils 0, Absolute Basophils 0, PUBS MCHC 33.0 10/30/16 0610: Anion Gap 16, Estimated GFR 8 L, BUN/Creatinine Ratio 15.2, CBC w Diff MAN DIFF ORDERED, RBC 2.82 L, MCV 90.9, MCH 29.1, RDW 16.6 H, MPV 8.0, Gran % 86.1 H, Lymphocytes % 5.4 L, Monocytes % 8.3, Eosinophils % 0.2, Basophils % 0 L, Absolute Granulocytes 3.7, Absolute Lymphocytes 0.2 L, Absolute Monocytes 0.4, Absolute Eosinophils 0, Absolute Basophils 0, Platelet Estimate VERIFIED BY SMEAR, Polychromasia 1+, Basophilic Stippling 1+, Anisocytosis 1+, PUBS MCHC 32.0 L Assessment/Plan Assessment: IP Day #5 for 86yo male with PMH significant for CHF, HFPEF, CKD, CAD s/p CABG x5, anemia 2/2 to chronic kidney disease, hypothyroidism, chronic back pain being treated and monitored on telemetry for fluid overload in the setting of CHF, CKD stage V vs ESRD. Pt's fluid overload is due to CKD Stage V vs. ESRD. Pt is being followed by Nephrology and dialysis has been recommended for increasing BUN/Cr. Today 125/7.2. An tal cath was placed yesterday in anticipation of dialysis today. Vascular surgery was consulted re: AV fistula and stated it could be placed if cleared by Cardio. Cardiology has cleared the pt for AV fistula procedure, and pt is scheduled for OR today. Per Cardiology, pt should be on low-dose aspirin, as well as statin, for his carotid stenosis. Aspirin not started in anticipation of surgery. Once perioperative bleeding risk period has passed, it will be safe to start pt on low-dose aspirin. AV fistulas can have effects on hemodynamics in dialysis pts. AV fistula decreases peripheral and central blood pressure, increases CO by increasing sympathetic tone and cardiac contractility. Given this pt's history of heart disease and CAD, regular monitoring for worsening cardiac function is recommended after placement of the fistula. Plan: -OR for AV fistula -hemodialysis via tal cath today -continue telemonitoring -continue medications -continue O2 50% and monitor SpO2 3. Continue to hold diuretics Continue telemetry? Yes Chronic diastolic heart failure 2. Coronary disease by history status post coronary bypass surgery 3. End-stage renal disease with plan for dialysis 4. Chronic anemia 5. Hypertension 6. Hyperlipidemia 7. Obstructive sleep apnea/hypoventilation 8. Mild to moderate mitral/aortic stenosis by recent echocardiogram 9. History of significant carotid stenosis being managed medically by vascular Recommendations 1. Continue current medications 2. Patient is stable from a cardiac standpoint for surgery for creation of AV fistula 3. Continue to hold diuretics Continue telemetry? Yes
[2016-11-01 08:00] VITALS: BP 132/68
--- NOTE | 2016-11-01 09:12 | PN- Cardiology ---
Subjective Subjective: Patient is lethargic but without specific complaints. He denies chest pain or shortness of breath. He is on high flow O2 Review of Systems: Unobtainable patient is lethargic and a poor historian Objective Vital Signs and I&Os Vital Signs Date Time Temp Pulse Resp B/P B/P Pulse O2 O2 Flow FiO2 Mean Ox Delivery Rate 11/01 0839 92 Nasal 50% Cannula 11/01 0800 98.5 79 22 132/68 93 11/01 0204 92 Nasal 50% Cannula 11/01 0000 98.1 78 22 118/64 93 Nasal 40% Cannula 11/01 0000 93 Nasal 50% Cannula 10/31 2227 91 Nasal 50% Cannula 10/31 2136 78 138/70 10/31 1900 93 Nasal 55% Cannula 10/31 1600 Nasal Cannula 10/31 1600 90 Nasal 55% Cannula 10/31 1530 99.0 82 18 124/62 93 Nasal Cannula 10/31 1424 92 Nasal 50% Cannula 10/31 0945 98.2 84 144/60 10/31 0944 144/60 10/31 0944 84 144/60 Intake & Output 11/01 1600 11/01 0800 05/ 0000 05 1600 10/31 0800 05 0000 Intake Total 360 360 240 200 510 Output Total 1000 640 800 850 Balance -640 360 -400 -600 -340 Intake, IV 30 Intake, Oral 360 360 240 200 480 Output, Urine 1000 640 800 850 Patient 236 lb 229 lb 229 lb Weight Weight Briana Lift Standing Scale Measurement Method Physical Exam: Patient is a well-developed well-nourished male lethargic appearing in no acute distress HEENT is unremarkable Neck is supple there is no JVD Lungs decreased air entry bilaterally Heart regular rhythm S1 and S2 are normal no gallops or rubs 3/6 systolic ejection murmur at the right upper sternal border Abdomen bowel sounds positive Extremities without edema Current Medications: Current Medications Sig/Tiffanie Start time Last Medication Dose Route Stop Time Status Admin Acetaminophen 650 MG Q6P PRN 10/28 2229 AC PO Albuterol Sulfate 3 ML BID 10/29 2199 AC 11/01 INH 0823 Amlodipine Besylate 10 MG DAILY 10/29 1000 AC 10/31 PO 0944 Atorvastatin Calcium 20 MG DAILY 10/29 999 AC 10/31 PO 0945 Calcitriol 0.25 MCG AT BEDTIME 10/29 2199 AC 10/31 PO 2136 Cholecalciferol 1,000 IU DAILY 10/29 1000 AC 10/31 PO 0945 Docusate Sodium 100 MG BID 10/29 1000 AC 10/31 PO 2135 Ferrous Sulfate 325 MG BID 10/29 2219 AC 10/31 PO 2136 Furosemide 100 MG BID 10/30 2200 DC 10/31 IV 0948 Gabapentin 100 MG QPM 10/29 2199 AC 10/31 PO 2135 Heparin Sodium 0 .STK-MED ONE 10/31 1400 DC (Porcine) IV Heparin Sodium 5,000 UNIT Q8 10/28 2213 AC 11/01 (Porcine) SC 0721 Isosorbide 90 MG DAILY 10/29 1000 AC 10/31 Mononitrate PO 0944 Labetalol HCl 300 MG BID 10/29 2219 AC 10/31 PO 2135 Levothyroxine Sodium 0.05 MG DAILY 10/29 1000 AC 10/31 PO 0945 Lidocaine 0 .STK-MED ONE 10/31 1400 DC .ROUTE Lidocaine/Epinephrine 0 .STK-MED ONE 10/31 1400 DC .ROUTE Multivitamins 1 TAB DAILY 11/01 1000 AC PO Polyethylene Glycol 17 GM DAILY 10/31 1727 AC PO Prednisone 40 MG DAILY 10/29 1000 DC 10/31 PO 0945 Senna/Docusate Sodium 1 TAB BID PRN 10/31 1730 AC PO Senna/Docusate Sodium 1 TAB BID 10/29 1000 DC 10/31 PO 0945 Results Last 48 Hrs of Labs/Mics: Laboratory Tests 11/01/16 0807: Sodium Pending, Potassium Pending, Chloride Pending, Carbon Dioxide Pending, Anion Gap Pending, BUN Pending, Creatinine Pending, BUN/Creatinine Ratio Pending , CBC w Diff Pending, WBC Pending, RBC Pending, Hgb Pending, Hct Pending, MCV Pending, MCH Pending, RDW Pending, Plt Count Pending, MPV Pending, PUBS MCHC Pending 10/31/16 1104: PT 12.5, INR 1.19 H 10/31/16 0600: Anion Gap 19 H, Estimated GFR 8 L, BUN/Creatinine Ratio 17.1, CBC w Diff NO MAN DIFF REQ, RBC 2.76 L, MCV 89.9, MCH 29.7, RDW 16.6 H, MPV 7.8, Gran % 87.1 H, Lymphocytes % 4.6 L, Monocytes % 7.9, Eosinophils % 0.1, Basophils % 0.3, Absolute Granulocytes 5.0, Absolute Lymphocytes 0.3 L, Absolute Monocytes 0.4, Absolute Eosinophils 0, Absolute Basophils 0, PUBS MCHC 33.0 Telemetry personally reviewed sinus rhythm Assessment/Plan Assessment/Plan 1. Chronic diastolic heart failure 2. Coronary disease by history status post coronary bypass surgery 3. End-stage renal disease with plan for dialysis 4. Chronic anemia 5. Hypertension 6. Hyperlipidemia 7. Obstructive sleep apnea/hypoventilation 8. Mild to moderate mitral/aortic stenosis by recent echocardiogram 9. History of significant carotid stenosis being managed medically by vascular Recommendations 1. Continue current medications 2. Patient is stable from a cardiac standpoint for surgery for creation of AV fistula 3. Continue to hold diuretics Continue telemetry? Yes
[2016-11-01 09:18] LABS: ABSOLUTE BASOPHIL COUNT 0 /CUMM (0.0-0.2); ABSOLUTE EOSINOPHIL COUNT 0 /CUMM (0.0-0.7); ABSOLUTE GRANULOCYTE CT 4.9 /CUMM (1.4-6.5); ABSOLUTE LYMPH COUNT 0.2 /CUMM (1.2-3.4); ABSOLUTE MONOCYTE COUNT 0.5 /CUMM (0.10-0.60); BASOPHIL % 0.1 % (0.0-2.0); EOSINOPHIL % 0 % (0-5); HEMATOCRIT 25.4 % (42-52); MEAN CORPUSCULAR HGB 28.6 PG (27.0-31.0); MEAN CORPUSCULAR HGB CONC 31.9 G/DL (33.0-37.0); MEAN CORPUSCULAR VOLUME 89.5 FL (80.0-94.0); MEAN PLATELET VOLUME 7.6 FL (7.4-10.4); PLATELET COUNT 153 /CUMM (130-400); RBC DISTRIBUTION WIDTH 16.5 % (11.5-14.5); RED BLOOD CELL CT 2.84 /CUMM (4.70-6.10); WHITE BLOOD CELL COUNT 5.7 /CUMM (4.8-10.8)
[2016-11-01 10:05] LABS: GRANULOCYTE % 86.8 % (42.2-75.2)
--- NOTE | 2016-11-01 13:52 | PN- Nephrology ---
Assessment/Plan Assessment: 1. CKD stage V, likely ESRD 2. Coronary artery disease status post CABG 5 with congestive heart failure 3. Hypertension, hyperlipidemia 4. Obstructive sleep apnea Suggestion: 1. Continue to hold diuretics 2. Hemodialysis #1 today in progress with 1-2 L ultrafiltration goal as tolerated 3. We will plan for dialysis again tomorrow and then Monday 4. Await decision by pt. and his regarding outpatient renal and dialysis follow-up 5. Please check magnesium and phosphorus levels 6. Nephro-Becca 1 tablet daily Subjective Subjective: Right IJ dialysis catheter placed yesterday. Patient seen with his first hemodialysis. He is sleeping through the treatment. 1-2 L ultrafiltration planned over 2 hours at 200 mL/min blood flow. Objective Vital Signs and I&Os Vital Signs Date Time Temp Pulse Resp B/P B/P Pulse O2 O2 Flow FiO2 Mean Ox Delivery Rate 11/01 1125 79 132/68 / 1124 79 132/68 11/01 1124 79 132/68 / 0839 92 Nasal 50% Cannula 11/01 0800 98.5 79 22 132/68 93 / 0204 92 Nasal 50% Cannula / 0000 98.1 78 22 118/64 93 Nasal 40% Cannula 11/01 0000 93 Nasal 50% Cannula 10/31 2227 91 Nasal 50% Cannula 10/31 2136 78 138/70 / 1900 93 Nasal 55% Cannula 10/31 1600 Nasal Cannula 10/31 1600 90 Nasal 55% Cannula / 1530 99.0 82 18 124/62 93 Nasal Cannula 10/31 1424 92 Nasal 50% Cannula Intake & Output 11/01 1600 11/01 0400 10/31 1600 10/31 0400 10/30 1600 10/30 0400 Intake Total 360 360 440 510 240 520 Output Total 1000 8567 625 4118 450 Balance -640 360 -1000 -340 70 Intake, IV 30 20 Intake, Oral 360 360 440 480 240 500 Output, Urine 1000 6595 752 6961 450 Patient 236 lb 229 lb Weight Weight Briana Lift Standing Scale Measurement Method Physical Exam: General: Well-developed, elderly obese white male on high flow oxygen in NAD Skin: No rash or jaundice HEENT: Conjunctivae pale, sclerae anicteric, mucous membranes moist Neck: Without masses or thyromegaly, no supraclavicular or cervical adenopathy; right IJ catheter in place Chest: Clear with poor air entry bilaterally Heart: Regular rate and rhythm without S3 or rub Abdomen: Obese, soft and nontender without palpable masses or organomegaly Extremities: Without cyanosis or edema Neuro: No focal findings, no myoclonus Current Medications: Current Medications Sig/Tiffanie Start time Last Medication Dose Route Stop Time Status Admin Acetaminophen 650 MG Q6P PRN 10/28 2230 AC PO Albuterol Sulfate 3 ML BID 10/29 2200 AC 11/01 INH 0823 Amlodipine Besylate 10 MG DAILY 10/29 1000 AC 11/01 PO 1125 Atorvastatin Calcium 20 MG DAILY 10/29 1000 AC 11/01 PO 1124 Calcitriol 0.25 MCG AT BEDTIME 10/29 2200 AC 10/31 PO 2136 Cholecalciferol 1,000 IU DAILY 10/29 1000 AC 11/01 PO 1125 Docusate Sodium 100 MG BID 10/29 1000 AC 11/01 PO 1124 Epoetin Earnest 4,000 UNIT ONCE ONE 11/01 1115 DC IV 11/01 1116 Ferrous Sulfate 325 MG BID 10/28 2220 AC 11/01 PO 1124 Gabapentin 100 MG QPM 10/29 2200 AC 10/31 PO 2135 Heparin Sodium 0 .STK-MED ONE 10/31 1400 DC (Porcine) IV Heparin Sodium 5,000 UNIT Q8 10/28 2214 AC 11/01 (Porcine) SC 0721 Isosorbide 90 MG DAILY 10/29 1000 AC 11/01 Mononitrate PO 1124 Labetalol HCl 300 MG BID 10/28 2220 AC 11/01 PO 1124 Levothyroxine Sodium 0.05 MG DAILY 10/29 1000 AC 11/01 PO 1124 Lidocaine 0 .STK-MED ONE 10/31 1400 DC .ROUTE Lidocaine/Epinephrine 0 .STK-MED ONE 10/31 1400 DC .ROUTE Multivitamins 1 TAB DAILY 11/01 1000 AC 11/01 PO 1125 Polyethylene Glycol 17 GM DAILY 10/31 1727 AC PO Prednisone 40 MG DAILY 10/29 1000 DC 10/31 PO 0945 Senna/Docusate Sodium 1 TAB BID PRN 10/31 1730 AC PO Senna/Docusate Sodium 1 TAB BID 10/29 1000 DC 10/31 PO 0945 Results Pertinent Lab Results: Laboratory Tests 11/01 10/31 0807 1104 Chemistry Sodium (137 - 145 mmol/L) 144 Potassium (3.5 - 5.1 mmol/L) 4.5 Chloride (98 - 107 mmol/L) 99 Carbon Dioxide (22 - 30 mmol/L) 25 Anion Gap (5 - 16) 19 H BUN (9 - 20 mg/dL) 125 *H Creatinine (0.7 - 1.2 mg/dL) 7.2 *H Estimated GFR (>60 ml/min) 7 L BUN/Creatinine Ratio (7 - 25 %) 17.4 Coagulation PT (9.4 - 12.5 SEC) 12.5 INR (0.90 - 1.17) 1.19 H Hematology CBC w Diff NO MAN DIFF REQ WBC (4.8 - 10.8 /CUMM) 5.7 RBC (4.70 - 6.10 /CUMM) 2.84 L Hgb (14.0 - 18.0 G/DL) 8.1 L Hct (42 - 52 %) 25.4 L MCV (80.0 - 94.0 FL) 89.5 MCH (27.0 - 31.0 PG) 28.6 RDW (11.5 - 14.5 %) 16.5 H Plt Count (130 - 400 /CUMM) 153 MPV (7.4 - 10.4 FL) 7.6 Gran % (42.2 - 75.2 %) 86.8 H Lymphocytes % (20.5 - 51.1 %) 4.3 L Monocytes % (1.7 - 9.3 %) 8.8 Eosinophils % (0 - 5 %) 0 Basophils % (0.0 - 2.0 %) 0.1 Absolute Granulocytes (1.4 - 6.5 /CUMM) 4.9 Absolute Lymphocytes (1.2 - 3.4 /CUMM) 0.2 L Absolute Monocytes (0.10 - 0.60 /CUMM) 0.5 Absolute Eosinophils (0.0 - 0.7 /CUMM) 0 Absolute Basophils (0.0 - 0.2 /CUMM) 0 PUBS MCHC (33.0 - 37.0 G/DL) 31.9 L 10/31 10/30 0600 0610 Chemistry Sodium (137 - 145 mmol/L) 142 142 Potassium (3.5 - 5.1 mmol/L) 4.4 4.8 Chloride (98 - 107 mmol/L) 98 99 Carbon Dioxide (22 - 30 mmol/L) 24 26 Anion Gap (5 - 16) 19 H 16 BUN (9 - 20 mg/dL) 116 *H 96 H Creatinine (0.7 - 1.2 mg/dL) 6.8 *H 6.3 *H Estimated GFR (>60 ml/min) 8 L 8 L BUN/Creatinine Ratio (7 - 25 %) 17.1 15.2 Hematology CBC w Diff NO MAN DIFF REQ MAN DIFF ORDERED WBC (4.8 - 10.8 /CUMM) 5.7 4.3 L RBC (4.70 - 6.10 /CUMM) 2.76 L 2.82 L Hgb (14.0 - 18.0 G/DL) 8.2 L 8.2 L Hct (42 - 52 %) 24.8 L 25.6 L MCV (80.0 - 94.0 FL) 89.9 90.9 MCH (27.0 - 31.0 PG) 29.7 29.1 RDW (11.5 - 14.5 %) 16.6 H 16.6 H Plt Count (130 - 400 /CUMM) 153 138 MPV (7.4 - 10.4 FL) 7.8 8.0 Gran % (42.2 - 75.2 %) 87.1 H 86.1 H Lymphocytes % (20.5 - 51.1 %) 4.6 L 5.4 L Monocytes % (1.7 - 9.3 %) 7.9 8.3 Eosinophils % (0 - 5 %) 0.1 0.2 Basophils % (0.0 - 2.0 %) 0.3 0 L Absolute Granulocytes (1.4 - 6.5 /CUMM) 5.0 3.7 Absolute Lymphocytes (1.2 - 3.4 /CUMM) 0.3 L 0.2 L Absolute Monocytes (0.10 - 0.60 /CUMM) 0.4 0.4 Absolute Eosinophils (0.0 - 0.7 /CUMM) 0 0 Absolute Basophils (0.0 - 0.2 /CUMM) 0 0 Platelet Estimate (ADEQUATE) VERIFIED BY SMEAR Polychromasia 1+ Basophilic Stippling 1+ Anisocytosis 1+ PUBS MCHC (33.0 - 37.0 G/DL) 33.0 32.0 L
[2016-11-01 15:30] VITALS: BP 122/60
[2016-11-02 01:18] VITALS: BP 118/68
--- NOTE | 2016-11-02 08:01 | PN- Housestaff ---
TANA COLE 11/02/16 0800: Subjective Follow-up For: - End-stage renal disease -CHF exacerbation Complaints: no complaints Tele-Events Since Last Visit: Normal sinus rhythm, first-degree heart block, multiple PVCs. Heart rate in the range of 84-87. Subjective: The patient was more alert compared to yesterday. Was oriented to time place and person. He had paqh-emx-asrmv temperature 100.8. Vitals remained stable overnight. He continued to remain on high flow nasal cannula-oxygen 50%. This morning, oxygen requirement went up to 75%. Due to get his HD session today to remove fluid. Review of Systems Constitutional: Reports: see HPI. Objective Last 24 Hrs of Vital Signs/I&O Vital Signs Date Time Temp Pulse Resp B/P B/P Pulse O2 O2 Flow FiO2 Mean Ox Delivery Rate 11/02 0118 98.5 84 18 118/68 95 Nasal Cannula 11/02 0030 Nasal 50% Cannula 11/02 0000 Nasal 50% Cannula 11/01 2248 78 142/74 05/ 1630 92 Nasal 50% Cannula 11/01 1600 94 Nasal 50% Cannula 11/01 1530 98.1 88 18 122/60 95 Nasal Cannula 11/01 1456 92 Nasal 50% Cannula 11/01 1125 79 132/68 05/02 1124 79 132/68 05/02 1124 79 132/68 05/02 0839 92 Nasal 50% Cannula Intake & Output 11/02 1600 05/03 0800 05 0000 Intake Total 120 Output Total 475 300 Balance -475 -180 Intake, Oral 120 Output, Urine 475 300 Patient 229 lb 231 lb Weight Weight Chair scale Briana Lift Measurement Method Physical Exam General Appearance: No Acute Distress Other Physical Findings: General Exam: lethargic, Ox3, No acute distress, Skin: No rashes, no breakdown HEENT: PERRLA, EOMI Neck: Supple, No JVD No cervical lymphadenopathy CVS: Reg Rate, Normal S1,S2, No MGR Resp: Normal air entry, no ronchi/rales Abdomen: Soft, No tenderness, Normal Bowel Sounds Neuro: Normal Speech, Strength 5/5 b/l x 4 extremities, Sensation intact, CN III -XII NL, Reflexes 2+ Extremities: No cyanosis, pedal edema, asael cath in place w/o any erythema or tenderness. Current Medications: Current Medications Sig/Tiffanie Start time Last Medication Dose Route Stop Time Status Admin Acetaminophen 650 MG Q6P PRN 10/28 2230 AC PO Albuterol Sulfate 3 ML BID 10/29 2200 AC 11/02 INH 0849 Amlodipine Besylate 10 MG DAILY 10/29 1000 AC 11/02 PO 1107 Atorvastatin Calcium 20 MG DAILY 10/29 1000 AC 11/02 PO 1107 Calcitriol 0.25 MCG AT BEDTIME 10/29 2199 AC 10/31 PO 2136 Ceftriaxone Sodium 1,000 MG DAILY 11/02 1528 AC IV Cholecalciferol 1,000 IU DAILY 10/29 1000 AC 11/02 PO 1107 Docusate Sodium 100 MG BID 10/29 1000 AC 11/02 PO 1107 Ferrous Sulfate 325 MG BID 10/28 222 AC 11/02 PO 1107 Gabapentin 100 MG QPM 10/29 2199 AC 11/01 PO 2248 Heparin Sodium 5,000 UNIT Q8 10/28 2214 AC 11/02 (Porcine) SC 0631 Isosorbide 90 MG DAILY 10/29 1000 AC 11/02 Mononitrate PO 1107 Labetalol HCl 300 MG BID 10/28 2220 AC 11/02 PO 1108 Levothyroxine Sodium 0.05 MG DAILY 10/29 1000 AC 11/02 PO 1107 Multivitamins 1 TAB DAILY 11/01 1000 AC 11/02 PO 1107 Polyethylene Glycol 17 GM DAILY 10/31 1727 AC 11/02 PO 1116 Senna/Docusate Sodium 1 TAB BID PRN 10/31 1730 AC PO Last 24 Hrs of Lab/Jamel Results Last 24 Hrs of Labs/Mics: Laboratory Tests 11/02/16 1110: Urinalysis LIGHT H, Urine Color YEL, Urine Clarity HAZY H, Urine pH 6.0, Ur Specific [place] 1.025, Urine Protein 100 H, Urine Ketones NEG, Urine Nitrite NEG, Urine Bilirubin NEG, Urine Urobilinogen 0.2, Ur Leukocyte Esterase MOD H, Ur Microscopic SEDIMENT EXAMINED, Urine RBC 25-50 H, Urine WBC > 75 H, Ur Epithelial Cells FEW, Urine Bacteria MANY H, Urine Mucus FEW, Urine Hemoglobin LARGE H, Urine Glucose NEG 11/02/16 0655: Anion Gap 18 H, Estimated GFR 10 L, BUN/Creatinine Ratio 18.7, Calcium 8.4, Phosphorus 6.7 H, Magnesium 2.4 H, CBC w Diff NO MAN DIFF REQ, RBC 3.00 L, MCV 89.6, MCH 29.1, RDW 16.4 H, MPV 7.7, Gran % 87.0 H, Lymphocytes % 3.5 L, Monocytes % 9.1, Eosinophils % 0.4, Basophils % 0 L, Absolute Granulocytes 5.0, Absolute Lymphocytes 0.2 L, Absolute Monocytes 0.5, Absolute Eosinophils 0, Absolute Basophils 0, PUBS MCHC 32.5 L 11/01/16 2030: Anion Gap 16, Estimated GFR 11 L, BUN/Creatinine Ratio 17.3, Phosphorus 7.1 H, Magnesium 2.4 H Microbiology 11/02 1530 URINE ROUT: Urine Culture - COLB 11/02 1443 URINE ROUT: Legionella Antigen - COLB 11/02 1443 URINE ROUT: Streptococcus pneumoniae Antigen (M - COLB 11/02 1125 BLOOD: Blood Culture - RECD 11/02 1115 BLOOD: Blood Culture - RECD Assessment/Plan Assessment: Mr Martinez is an 86-year-old male with past medical history of CAD status post CABG, heart failure with preserved ejection fraction, hypothyroidism, CKD- stage 5 is being evaluated for worsening bilateral lower extremity edema and 8 pound weight gain despite being on furosemide likely due to worsening renal function and volume overload. Below is the problem list and plan: 1. Acute on chronic respiratory failure likely multifactorial-volume overload, acute on CKD and diastolic HF, pulmonary HTN, or pneumonia. Patient initially diuresed with high dose of furosemide, which was discontinued. Check daily weights. Patient has obstructive sleep apnea, and severe pulmonary hypertension which could be contributing to decompensation. Currently on high flow oxygen. Titrate down as the patient tolerates. Chest x-ray revealed worsening pathology , likely from fluid overload, and is underlying pneumonia is not completely ruled out. CT chest has been ordered. 2. GURPREET on CKD stage 5-kidney function was worsening, and so the decision was made to hemodialyze the patient. Tunneled Asael cath placed without any complications. Hemodialysis 2 sessions so far. [employer] Server-Salvador Zepeda MD advising. In view of long-term hemodialysis, AV fistula was planned to be placed in the a.m. Considering worsening clinical condition, it was deferred for a later time. Reached out to Dr. Dill's office, and left a message. Continue calcitriol and Epogen. 3. History of CAD, hypertension- Continue Imdur, labetalol and amlodipine. Juan J Lamas MD advising. Aspirin could be started after a decision is made about placement of aVF. 4. Normocytic anemia secondary to chronic kidney disease- likely anemia of chronic disease. Received Epogen on Monday. H&H stable at this time. 5. Chronic back pain- Continue gabapentin at a lower dose 100 mg at bedtime due to worsening kidney function. May discontinue it, if the pt continues to be lethargic. 6. Hypothyroidism- Continue levothyroxine 7. DVT prophylaxis- Subcutaneous heparin 8. Full code Problem List: 1. Pleural effusion 2. CHF (congestive heart failure) 3. End stage renal disease 4. Volume overload Pain Ratin Pain Location: None Pain Goal: Pain 4 or less Pain Plan: Tylenol when necessary Tomorrow's Labs & Rationales: Complete blood count-to monitor for anemia and leukocytosis Basic electrolyte panel-monitor for worsening kidney function including BUN and serum creatinine. DVT/Prophylaxis: pharmacological (heparin subcutaneous) BASIA BAIN,[facility] 11/02/16 1203: Attending MD Review Statement Attending Statement Attending MD Statement: examined this patient, discuss w/resident/PA/CALIBRATION TESTER, agreed w/resident/PA/CALIBRATION TESTER, reviewed EMR data (avail), discussed with nursing, discussed with case mgmt, reviewed images, amended to note Attending Assessment/Plan: Patient seen and examined, remains lethargic and hypoxic. Denies any complaints. Vital Signs Date Time Temp Pulse Resp B/P B/P Pulse O2 O2 Flow FiO2 Mean Ox Delivery Rate 11/02 1107 90 142/80 11/02 0900 100.8 99 20 140/70 92 Nasal Cannula 11/02 0853 85 Nasal 50% Cannula 11/02 0800 Nasal Cannula 11/02 0118 98.5 84 18 118/68 95 Nasal Cannula 11/02 0030 Nasal 50% Cannula 11/02 0000 Nasal 50% Cannula 11/01 2248 78 142/74 11/01 1630 92 Nasal 50% Cannula 11/01 1600 94 Nasal 50% Cannula 11/01 1530 98.1 88 18 122/60 95 Nasal Cannula 11/01 1456 92 Nasal 50% Cannula on exam; sleepy, still hypoxic. cv; s1,s2, rrr. resp; decreased bs at left base. abd; soft, nt, bs+ ext; no edema. Laboratory Tests 11/02 11/01 11/01 6380 2030 1218 Chemistry Sodium (137 - 145 mmol/L) 142 142 Potassium (3.5 - 5.1 mmol/L) 4.4 4.4 Chloride (98 - 107 mmol/L) 101 100 Carbon Dioxide (22 - 30 mmol/L) 23 26 Anion Gap (5 - 16) 18 H 16 BUN (9 - 20 mg/dL) 99 H 90 H Creatinine (0.7 - 1.2 mg/dL) 5.3 *H 5.2 *H Estimated GFR (>60 ml/min) 10 L 11 L BUN/Creatinine Ratio (7 - 25 %) 18.7 17.3 Phosphorus (2.5 - 4.5 mg/dL) 6.7 H 7.1 H Magnesium (1.6 - 2.3 mg/dL) 2.4 H 2.4 H Hematology CBC w Diff NO MAN DIFF REQ WBC (4.8 - 10.8 /CUMM) 5.8 RBC (4.70 - 6.10 /CUMM) 3.00 L Hgb (14.0 - 18.0 G/DL) 8.7 L Hct (42 - 52 %) 26.9 L MCV (80.0 - 94.0 FL) 89.6 MCH (27.0 - 31.0 PG) 29.1 RDW (11.5 - 14.5 %) 16.4 H Plt Count (130 - 400 /CUMM) 150 MPV (7.4 - 10.4 FL) 7.7 Gran % (42.2 - 75.2 %) 87.0 H Lymphocytes % (20.5 - 51.1 %) 3.5 L Monocytes % (1.7 - 9.3 %) 9.1 Eosinophils % (0 - 5 %) 0.4 Basophils % (0.0 - 2.0 %) 0 L Absolute Granulocytes (1.4 - 6.5 /CUMM) 5.0 Absolute Lymphocytes (1.2 - 3.4 /CUMM) 0.2 L Absolute Monocytes (0.10 - 0.60 /CUMM) 0.5 Absolute Eosinophils (0.0 - 0.7 /CUMM) 0 Absolute Basophils (0.0 - 0.2 /CUMM) 0 PUBS MCHC (33.0 - 37.0 G/DL) 32.5 L Serology Hep Bs Antigen (NONREACTIVE) NONREACTIVE Hep Bs Antibody (NONREACTIVE) NONREACTIVE A/P; 86 y/o M with pmh sig for CAD status post CABG, heart failure with preserved ejection fraction, hypothyroidism, stage V CKD, admitted with weight gain, decreased urination, acute on chronic renal failure, fluid overload and acute hypoxic respiratory failure. Chest x-ray this morning shows possibility of fluid overload. Patient due for dialysis. He also low-grade temp. Would recommend checking a urinalysis, blood cultures and urine culture. ABG should be obtained. Pulmonology consult has been called. Patient ideally would require a noncontrast CT chest, please discuss with pulmonology. Hemodialysis per nephrology. Remains on high flow oxygen at this time. Continue other current meds. DVT px: hep sq.
[2016-11-02 08:05] LABS: ABSOLUTE BASOPHIL COUNT 0 /CUMM (0.0-0.2); ABSOLUTE EOSINOPHIL COUNT 0 /CUMM (0.0-0.7); ABSOLUTE LYMPH COUNT 0.2 /CUMM (1.2-3.4); ABSOLUTE MONOCYTE COUNT 0.5 /CUMM (0.10-0.60); BASOPHIL % 0 % (0.0-2.0); EOSINOPHIL % 0.4 % (0-5); HEMATOCRIT 26.9 % (42-52); MEAN CORPUSCULAR HGB 29.1 PG (27.0-31.0); MEAN CORPUSCULAR HGB CONC 32.5 G/DL (33.0-37.0); MEAN CORPUSCULAR VOLUME 89.6 FL (80.0-94.0); MEAN PLATELET VOLUME 7.7 FL (7.4-10.4); PLATELET COUNT 150 /CUMM (130-400); RBC DISTRIBUTION WIDTH 16.4 % (11.5-14.5); WHITE BLOOD CELL COUNT 5.8 /CUMM (4.8-10.8)
--- NOTE | 2016-11-02 08:24 | PN- Vascular Surgery ---
Subjective Subjective: This morning, the patient is short of breath. He is having a difficult time comprehending what I am telling him regarding the need for permanent AV access. He is right-handed, and there is a strongly palpable left radial pulse. There are visible veins on the arm. Objective Vital Signs and I&Os Vital Signs Date Time Temp Pulse Resp B/P B/P Pulse O2 O2 Flow FiO2 Mean Ox Delivery Rate 11/02 0118 98.5 84 18 118/68 95 Nasal Cannula 11/02 0030 Nasal 50% Cannula 11/02 0000 Nasal 50% Cannula 11/01 2248 78 142/74 05/02 1630 92 Nasal 50% Cannula 11/01 1600 94 Nasal 50% Cannula 11/01 1530 98.1 88 18 122/60 95 Nasal Cannula 11/01 1456 92 Nasal 50% Cannula 11/01 1125 79 132/68 05/ 1124 79 132/68 / 1124 79 132/68 / 0839 92 Nasal 50% Cannula Intake & Output 11/02 1600 / 0800 05/ 0000 11/01 1600 11/01 0800 11/01 0000 Intake Total 120 360 360 Output Total 361 897 9712 1000 Balance -475 -180 -2050 -640 360 Intake, Oral 120 360 360 Output, 1500 Dialysate Output, Urine 475 374 788 1070 Patient 103.873 kg 104.553 kg 107.048 kg Weight Weight Chair scale Briana Lift Briana Lift Measurement Method Physical Exam General Appearance: anxious, mild distress Respiratory: accessory muscle use Peripheral Pulses: 3+ radial (R), 3+ radial (L) Assessment/Plan Assessment/Plan This 86-year-old male with severe chronic kidney disease/ESRD requires permanent AV access creation. He will likely sustain a left radiocephalic or brachiocephalic AV fistula. This can be created in one stage. However, given his appearance this morning, his shortness of breath, and his difficulty in expressing an understanding of the procedure we are planning to perform, I would like to discuss this further with his and medical team. He does not appear to be optimized for a surgical intervention at this time. He is tentatively on the operating room schedule for tomorrow afternoon, though this will obviously be guided by his medical condition. I am available to discuss at any time. Problem List: 1. Renal failure Core Measures/Miscellaneous Venous Thromboembolism VTE Risk Factors: Acute medical illness VTE Contraindications: Severe Renal Fail- LMWH VTE Diagnosis: No VTE Type: NONE VTE Confirmed by (Test): NONE Beta Noreen Is Beta Noreen a Home Med? No (unknown) Antibiotics Is Patient on Antibiotics? No (unknwon)
[2016-11-02 09:00] VITALS: BP 140/70
--- NOTE | 2016-11-02 10:56 | RADIOLOGY REPORT ---
EXAMINATION: XR PORTABLE CHEST CLINICAL INFORMATION: Shortness of breath and bibasilar crackles. Rule out CHF. COMPARISON: Chest x-ray 10/28/2016 TECHNIQUE: Portable frontal view of the chest was obtained. FINDINGS: Prominent central pulmonary vasculature suggesting pulmonary edema. Chronically elevated left hemidiaphragm, however, there is been interval development of patchy opacity within the left upper lobe. Right-sided tunneled hemodialysis catheter terminates at the cavoatrial junction. IMPRESSION: Interval development of pulmonary edema. Patchy opacity within the left upper lobe likely represents pulmonary edema, however, a developing infiltrate cannot be entirely excluded. Follow-up imaging recommended status post treatment to ensure resolution.
[2016-11-02 11:00] VITALS: BP 142/80
--- NOTE | 2016-11-02 12:02 | Cons- Pulmonary ---
VIKKI BAIN,SHARLENE 11/02/16 1202: General Information and HPI Consulting Request Date of Consult: 11/02/16 Requested By: Dr. Houston Reason for Consult: Shortness of breath Source of Information: patient, family, old records Exam Limitations: no limitations History of Present Illness: Mr. Martinez is an 86-year-old gentleman who is medical issues include COPD with 2 L home oxygen dependence, hypertension, hyperlipidemia, coronary artery disease status post CABG, TIA, diastolic heart failure, chronic kidney disease, presently on dialysis that presented to the emergency room for evaluation of shortness of breath. He was found to be in acute congestive heart failure and renal failure and was admitted to the cardiac telemetry floor. He was diuresed with IV Lasix subsequently adding an acute injury to his chronic renal failure which eventually required him to have a right sided tunneled catheter placement on October 31, with initiation of dialysis yesterday on November 01. He is being followed closely by the cardiology and nephrology services and the plan is for him to get dialysis again today through the tunnel catheter. He has been evaluated by vascular surgery in anticipation of creation of a left upper extremity fistula for chronic dialysis. He remains on high flow oxygen, his shortness of breath is persistent and hence warranted this evaluation. This morning he had a temperature of 100.8, blood cultures were sent. Urine culture from admission is negative. During my bedside evaluation he was awake however a bit lethargic at times, however answer questions appropriately. States that his shortness of breath is slowly getting better. His last dose of Lasix was on 10/31/2016. Allergies/Medications Allergies: Coded Allergies: NO KNOWN ALLERGIES (09/28/15) Home Med List: Amlodipine Besylate 10 MG TABLET 0.5 TAB PO BID BP (Reported) Atorvastatin Calcium 20 MG TABLET 1 TAB PO DAILY CHOLESTEROL (Reported) Calcitriol 0.25 MCG CAPSULE 1 CAP PO AT BEDTIME KIDNEY DISEASE, HYPOCALCEMIA (Reported) Cholecalciferol (Vitamin D3) (Vitamin D) 1,000 UNIT TABLET 1 TAB PO DAILY SUPPLEMENT (Reported) Docusate Sodium (Colace) 100 MG CAPSULE 1 CAP PO BID STOOL SOFTENER (Reported ) Epoetin Earnest (Procrit) 40,000 UNIT/ML VIAL 40,000 UNIT SC Q2W ANEMIA ( Reported) Ezetimibe (Zetia) 10 MG TABLET 1 TAB PO DAILY CHOLESTEROL (Reported) Ferrous Sulfate (Feosol) 325 MG (65 MG IRON) TABLET 2 TAB PO BID ANEMIA ( Reported) Furosemide (Lasix) 80 MG TABLET 1 TAB PO AD DIURETIC (Reported) Gabapentin 300 MG CAPSULE 1 CAP PO QPM NERVE PAIN (Reported) Hydralazine HCl 100 MG TABLET 1 TAB PO BID BP (Reported) Isosorbide Mononitrate (Isosorbide Mononitrate ER) 30 MG TAB.ER.24H 90 MG PO DAILY chest pain Labetalol HCl 300 MG TABLET 1 TAB PO BID BP (Reported) Levothyroxine Sodium 50 MCG TABLET 1 TAB PO DAILY THYROID (Reported) Sennosides (Senokot) 8.6 MG TABLET 1 TAB PO DAILY GI (Reported) Review of Systems Review of Systems Constitutional: Reports: see HPI. Past History Travel History Traveled to [place] past 21 day No Medical History Blood Transfusion Hx: Yes Neurological: TIA EENT: NONE Cardiovascular: CAD (s/p CABG x 5), diastolic CHF, hypertension, hyperlipidemia Respiratory: pulmonary hypertension Gastrointestinal: NONE Hepatic: NONE Renal: chronic kidney disease Musculoskeletal: osteoarthritis Psychiatric: NONE Endocrine: hypothyroidism Cancer(s): colon/rectal cancer IMPROVEMENT MANAGER/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 FATHER, , Age 70; Cause: Myocardial infarction. Relation not specified for: colon cancer in mother Psychosocial History Where Do You Live? Home Services at Home: Nursing, Physical Therapy Primary Language: Icelandic Smoking Status: Former Smoker ETOH Use: denies use Illicit Drug Use: denies illicit drug use Living Will? yes Power of Senior Design Engineer/HCP? unknown Functional Ability ADLs Independent: dressing, eating, toileting, bathing. Ambulation: independent IADLs Independent: shopping, housework, finances, food prep, telephone, transportation , medication admin. ECHO Results (as available) Date of last Echo 10/15/16 EF% 55 Exam & Diagnostic Data Last 24 Hrs of Vital Signs/I&O Vital Signs Date Time Temp Pulse Resp B/P B/P Pulse O2 O2 Flow FiO2 Mean Ox Delivery Rate 11/02 1212 90 124/60 11/02 1107 90 142/80 11/02 1100 99.2 90 24 142/80 92 Nasal 75% Cannula 11/02 0900 100.8 99 20 140/70 92 Nasal Cannula 11/02 0853 85 Nasal 50% Cannula 11/02 0800 Nasal Cannula 11/02 0118 98.5 84 18 118/68 95 Nasal Cannula 11/02 0030 Nasal 50% Cannula 11/02 0000 Nasal 50% Cannula 11/01 2248 78 142/74 11/01 1630 92 Nasal 50% Cannula 11/01 1600 94 Nasal 50% Cannula 11/01 1530 98.1 88 18 122/60 95 Nasal Cannula 11/01 1456 92 Nasal 50% Cannula Intake & Output 11/02 1600 11/02 0800 11/02 0000 Intake Total 120 Output Total 475 300 Balance -475 -180 Intake, Oral 120 Output, Urine 475 300 Patient 229 lb 231 lb Weight Weight Chair scale Briana Lift Measurement Method Physical Exam General Appearance: no apparent distress, alert, lethargic, mild distress Head: atraumatic, normal appearance Eyes: Bilateral: normal appearance, PERRL, EOMI. Ears, Nose, Throat: normal pharynx, normal ENT inspection Respiratory: decreased air entry bilaterally Cardiovascular: regular rate/rhythm Gastrointestinal: normal bowel sounds, soft, non-tender Skin: Tunneled catheter right precordium, no surrounding errythema Last 48 Hrs of Labs/Jamel: Laboratory Tests 11/02/16 0655: Anion Gap 18 H, Estimated GFR 10 L, BUN/Creatinine Ratio 18.7, Phosphorus 6.7 H, Magnesium 2.4 H, CBC w Diff NO MAN DIFF REQ, RBC 3.00 L, MCV 89.6, MCH 29.1 , RDW 16.4 H, MPV 7.7, Gran % 87.0 H, Lymphocytes % 3.5 L, Monocytes % 9.1, Eosinophils % 0.4, Basophils % 0 L, Absolute Granulocytes 5.0, Absolute Lymphocytes 0.2 L, Absolute Monocytes 0.5, Absolute Eosinophils 0, Absolute Basophils 0, PUBS MCHC 32.5 L 11/01/16 2030: Anion Gap 16, Estimated GFR 11 L, BUN/Creatinine Ratio 17.3, Phosphorus 7.1 H, Magnesium 2.4 H 11/01/16 1215: Hep Bs Antigen NONREACTIVE, Hep Bs Antibody NONREACTIVE 11/01/16 0807: Anion Gap 19 H, Estimated GFR 7 L, BUN/Creatinine Ratio 17.4, Phosphorus 9.4 H, Magnesium 2.6 H, CBC w Diff NO MAN DIFF REQ, RBC 2.84 L, MCV 89.5, MCH 28.6 , RDW 16.5 H, MPV 7.6, Gran % 86.8 H, Lymphocytes % 4.3 L, Monocytes % 8.8, Eosinophils % 0, Basophils % 0.1, Absolute Granulocytes 4.9, Absolute Lymphocytes 0.2 L, Absolute Monocytes 0.5, Absolute Eosinophils 0, Absolute Basophils 0, PUBS MCHC 31.9 L Diagnostic Data CXR Results PATIENT: IRIS MARTINEZ SR PRESENT AGE: 86 PATIENT ACCOUNT NO: [id number] : 31 LOCATION: [facility] ORDERING PHYSICIAN: TANA COLE MD SERVICE DATE: 11/02/16- EXAM TYPE: RAD - XRY-PORTABLE CHEST XRAY EXAMINATION: XR PORTABLE CHEST CLINICAL INFORMATION: Shortness of breath and bibasilar crackles. Rule out CHF. COMPARISON: Chest x-ray 10/28/2016 TECHNIQUE: Portable frontal view of the chest was obtained. FINDINGS: Prominent central pulmonary vasculature suggesting pulmonary edema. Chronically elevated left hemidiaphragm, however, there is been interval development of patchy opacity within the left upper lobe. Right-sided tunneled hemodialysis catheter terminates at the cavoatrial junction. IMPRESSION: Interval development of pulmonary edema. Patchy opacity within the left upper lobe likely represents pulmonary edema, however, a developing infiltrate cannot be entirely excluded. Follow-up imaging recommended status post treatment to ensure resolution. DICTATED BY: PHUONG DEL RIO MD DATE/TIME DICTATED:11/02/161048 [employer] CONSULTANT:ROBERT DATE/TIME TRANSCRIBED:11/02/161048 CONFIDENTIAL, DO NOT COPY WITHOUT APPROPRIATE AUTHORIZATION. <Electronically signed in Other Vendor System> SIGNED BY: PHUONG DEL RIO MD 11/02/16 1056 Assessment/Plan Impression/Plan: Assessment- 1. Persistent dyspnea- the etiology is multifactorial secondary to acute on chronic diastolic heart failure in conjunction with renal failure, chronic pulmonary hypertension, obesity hypoventilation 2. Acute on chronic diastolic heart failure, proBNP 16,400 on admission 3. Acute on chronic renal failure, with initiation of dialysis since yesterday 11/01/2016 through a tunnel catheter 4. Chronic anemia 5. Hypertension 6. Hypothyroidism 7. Hyperlipidemia 8. Chronic pulmonary hypertension Plan- - Check ABG, given lethargy - CT of the chest without IV contrast, his chest x-ray did mention a patchy opacity in the left upper lobe vs pulmonary edema - Continue high flow oxygen, taper oxygen requirements to maintain an oxygen saturation of greater than 92% at all times - Blood cultures 2 (already have been obtained per primary team) - Incentive spirometry - Sputum culture if able to expectorate - Check urinary strep and Legionella antigens, flu swab - Albuterol nebulizer every 4 hours while awake - Lasix is on hold per recommendations from nephrology and cardiology - If chest CT is pursued and does show infiltrates, cover for HCAP, postdialysis renal dosing as recommended by nephrology - Management of other medical problems per primary team - DVT prophylaxis at all times Consult Acknowledgment - Thank you for your consult request. JAY GRIFFIN MD 11/02/16 1247: Assessment/Plan Other Findings/Comments: Jay Mustafa M.D. have examined this patient, reviewed available EMR data, personally reviewed images, discussed with resident/PA/BUSINESS SERVICES SALES REPRESENTATIVE, discussed management plan with housestaff and nursing staff, discussed managment plan all of healthcare providers, discussed management plan with patient and/or family, agreed with resident/PA/BUSINESS SERVICES SALES REPRESENTATIVE. The past history and parts of the chart have been autopopulated. Consult Acknowledgment - Thank you for your consult request.
--- NOTE | 2016-11-02 12:05 | PN- Cardiology ---
Subjective Subjective: Patient remains on high flow nasal cannula oxygen. He is lethargic but answers questions appropriately. He denies any specific complaints at this time. Objective Vital Signs and I&Os Vital Signs Date Time Temp Pulse Resp B/P B/P Pulse O2 O2 Flow FiO2 Mean Ox Delivery Rate 11/02 1107 90 142/80 / 0900 100.8 99 20 140/70 92 Nasal Cannula / 0853 85 Nasal 50% Cannula 11/02 0800 Nasal Cannula 11/02 0118 98.5 84 18 118/68 95 Nasal Cannula 11/02 0030 Nasal 50% Cannula 11/02 0000 Nasal 50% Cannula 11/01 2248 78 142/74 05/ 1630 92 Nasal 50% Cannula 11/01 1600 94 Nasal 50% Cannula 11/01 1530 98.1 88 18 122/60 95 Nasal Cannula 11/01 1456 92 Nasal 50% Cannula Intake & Output 11/02 1600 / 0800 05/03 0000 05/02 1600 11/01 0800 05 0000 Intake Total 120 360 360 Output Total 465 629 6831 1000 Balance -475 -180 -2050 -640 360 Intake, Oral 120 360 360 Output, 1500 Dialysate Output, Urine [phone] Patient 229 lb 231 lb 236 lb Weight Weight Chair scale Briana Lift Briana Lift Measurement Method Physical Exam: General: Lethargic but responsive. On high flow oxygen Eyes: No obvious scleral icterus. HEENT: No jugular venous distention or abnormal jugular venous pulsations. Cardiovascular: Normal intensity S1/S2. PMI not grossly displaced. Regular. Respiratory: Mildly decreased air entry bilaterally Abdomen: Soft, nontender with no guarding or rebound tenderness. Musculoskeletal: No clubbing or cyanosis noted, no edema Skin: Warm Neurologic: Lethargic Current Medications: Current Medications Sig/Tiffanie Start time Last Medication Dose Route Stop Time Status Admin Acetaminophen 650 MG Q6P PRN 10/280 AC PO Albuterol Sulfate 3 ML BID 10/29 2199 AC 11/02 INH 0849 Amlodipine Besylate 10 MG DAILY 10/29 1000 AC 11/02 PO 1107 Atorvastatin Calcium 20 MG DAILY 10/29 1000 AC 11/02 PO 1107 Calcitriol 0.25 MCG AT BEDTIME 10/29 2199 AC 10/31 PO 2136 Cholecalciferol 1,000 IU DAILY 10/29 1000 AC 05/03 PO 1107 Docusate Sodium 100 MG BID 10/29 1000 AC 11/02 PO 1107 Ferrous Sulfate 325 MG BID 10/29 2219 AC 11/02 PO 1107 Gabapentin 100 MG QPM 10/29 2200 AC 11/01 PO 2248 Heparin Sodium 5,000 UNIT Q8 10/28 2214 AC 11/02 (Porcine) SC 0631 Isosorbide 90 MG DAILY 10/29 1000 AC 11/02 Mononitrate PO 1107 Labetalol HCl 300 MG BID 10/29 2219 AC 11/02 PO 1108 Levothyroxine Sodium 0.05 MG DAILY 10/29 1000 AC 11/02 PO 1107 Multivitamins 1 TAB DAILY 11/01 1000 AC 11/02 PO 1107 Patient Medication 1 ED .STK-MED ONE 11/01 1412 MD Teaching ED 11/01 1413 Polyethylene Glycol 17 GM DAILY 10/31 1727 AC 11/02 PO 1116 Senna/Docusate Sodium 1 TAB BID PRN 10/31 1730 AC PO Results Last 48 Hrs of Labs/Mics: Laboratory Tests 11/02/16 0655: Anion Gap 18 H, Estimated GFR 10 L, BUN/Creatinine Ratio 18.7, Phosphorus 6.7 H, Magnesium 2.4 H, CBC w Diff NO MAN DIFF REQ, RBC 3.00 L, MCV 89.6, MCH 29.1 , RDW 16.4 H, MPV 7.7, Gran % 87.0 H, Lymphocytes % 3.5 L, Monocytes % 9.1, Eosinophils % 0.4, Basophils % 0 L, Absolute Granulocytes 5.0, Absolute Lymphocytes 0.2 L, Absolute Monocytes 0.5, Absolute Eosinophils 0, Absolute Basophils 0, PUBS MCHC 32.5 L 11/01/16 2030: Anion Gap 16, Estimated GFR 11 L, BUN/Creatinine Ratio 17.3, Phosphorus 7.1 H, Magnesium 2.4 H 11/01/16 1215: Hep Bs Antigen NONREACTIVE, Hep Bs Antibody NONREACTIVE 11/01/16 0807: Anion Gap 19 H, Estimated GFR 7 L, BUN/Creatinine Ratio 17.4, Phosphorus 9.4 H, Magnesium 2.6 H, CBC w Diff NO MAN DIFF REQ, RBC 2.84 L, MCV 89.5, MCH 28.6 , RDW 16.5 H, MPV 7.6, Gran % 86.8 H, Lymphocytes % 4.3 L, Monocytes % 8.8, Eosinophils % 0, Basophils % 0.1, Absolute Granulocytes 4.9, Absolute Lymphocytes 0.2 L, Absolute Monocytes 0.5, Absolute Eosinophils 0, Absolute Basophils 0, PUBS MCHC 31.9 L Recent Imaging Studies: Telemetry tracings were personally reviewed and shows sinus rhythm with rare PVCs CXR: IMPRESSION: Interval development of pulmonary edema. Patchy opacity within the left upper lobe likely represents pulmonary edema, however, a developing infiltrate cannot be entirely excluded. Follow-up imaging recommended status post treatment to ensure resolution. Assessment/Plan Assessment/Plan 1. Chronic diastolic heart failure 2. Coronary disease by history status post coronary bypass surgery 3. End-stage renal disease with plan for dialysis 4. Chronic anemia 5. Hypertension 6. Hyperlipidemia 7. Obstructive sleep apnea/hypoventilation 8. Mild to moderate mitral/aortic stenosis by recent echocardiogram 9. History of significant carotid stenosis being managed medically by vascular 10. Hypoxia/respiratory failure The patient remains on high flow oxygen. He is lethargic but responsive. Chest x -ray concerning for increased volume overload, dialysis schedule with fluid removal per nephrology. Resume the Lasix when ok by nephrology. Given his respiratory status and lethargy I would consider obtaining an ABG. He will also likely benefit from pulmonary consultation and possibly a noncontrast CT. He had a temperature of 100.8 this morning. Given the patient's history of coronary artery disease and carotid stenosis recommend starting on low-dose daily aspirin therapy in the absence of any contraindications Gonzalo Lamas MD [facility] Continue telemetry? Yes
[2016-11-02 12:12] VITALS: BP 124/60
--- NOTE | 2016-11-02 12:45 | NUR ---
TO DIALYSIS VIA HOSPITAL BED. RESPIRATORY PLACED PATIENT ON NONREBREATHER FOR TRANSPORT AND PLACED BACK ON HIGH FLOW 75% OXYGEN. PATIENT ALERT ORIENTED X1, AROUSABLE. AT BEDSIDE. NOTIFIED DIALYSIS NURSE AND DR SCHMIDT OF PATIENT RECEIVING MEDICATIONS THIS AM. WILL CONTINUE TO MONITOR.
[2016-11-02 16:57] VITALS: BP 128/60
--- NOTE | 2016-11-02 17:10 | CT SCAN REPORT ---
EXAMINATION: CT CHEST WITHOUT CONTRAST CLINICAL INFORMATION: 86-year-old male history of CHF, worsening kidney function, on dialysis. Lethargic. Clinical diagnosis of pneumonia versus pulmonary edema. Patient requiring high oxygen. COMPARISON: CT of the chest done on 08/22/2016. TECHNIQUE: Multidetector volumetric CT imaging of the chest was done. Axial MIP volume rendering provided. Sagittal and coronal reformatted images were obtained. DLP: 937.82 mGy-cm FINDINGS: RN DIALYSIS: Abnormally elevated left hemidiaphragm is noted with nonspecific airspace opacity involving aerated part of the left lung and right perihilar region. LUNGS: Dense airspace consolidation is noted at both lower lobes of the lung (left greater than right), appear new on the right and shows significant interval progression on the left since the prior study dated 08/22/2016. Interval development of dense perihilar, central airspace opacities are also noted associated with air bronchogram at left upper lobe, shows interval progression since prior study. The right lung field is relatively appeared well aerated except for right lower lobe which shows dense airspace consolidation. The findings would be most consistent with left upper lobar pneumonia and likely collapsed consolidation of both lower lobes. Possibility of neoplasm involving the left upper lobe as you know cannot be absolutely excluded. Possibility of CHF/pulmonary edema would be less likely given the unilateral distribution of airspace disease. The tracheobronchial tree appeared patent. MEDIASTINUM: There is mild cardiomegaly present. Extensive coronary arterial calcifications are present. There is a right-sided central line present, new since prior study. There are multiple enlarged pretracheal, right paratracheal, precarinal lymph nodes noted, appear new since prior study dated 08/22/2016. PLEURA: Bilateral small pleural effusions are noted (right greater than left), new since prior study. AXILLA: No lymphadenopathy. UPPER ABDOMEN: Persistent stable asymmetric elevated left hemidiaphragm is noted. Solitary nonspecific hepatic hypodense lesion within the right lobe, ill-defined in outline, at segment 5, measures approximately 2.6 cm at its maximum dimension, unchanged, not optimally characterized. Follow-up ultrasound may be considered for further clarification, if clinically appropriate. Previously identified left adrenal adenoma and hyperdense exophytic masses at the superior anterior cortex of the left kidney appear unchanged as well, may represent hyperdense cysts. OSSEOUS STRUCTURES: No suspicious lytic or sclerotic abnormality. Intraspinal stimulator leads are visualized, appear unchanged. IMPRESSION: 1. Evidence of bilateral lower lobar collapse consolidation, appear new on the right and shows significant interval progression on the left since the prior CT of the chest done on 08/22/2016. Note is also made of interval progression of significant airspace disease at left upper lobe of the lung, likely represent pneumonia however, possibility of underlying neoplasm as you know is not excluded. Due to asymmetric involvement of the left lung, pulmonary edema is less favored. 2. Interval development of mediastinal lymphadenopathy, new since 08/22/2016. 3. Interval development of bilateral small pleural effusions (right greater than left). 4. Persistent stable asymmetric elevated left hemidiaphragm, of indeterminate etiology. 5. Ill-defined nonspecific 2.6 cm hepatic hypodense lesion at segment 5 of the right lobe, of indeterminate etiology. Follow-up ultrasound may be considered for further clarification. 6. Stable likely hyperdense cortical cysts at the superior pole of the left kidney and stable left adrenal adenoma.
--- NOTE | 2016-11-02 18:40 | PN- Nephrology ---
Assessment/Plan Assessment: 1. 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 Coronary artery disease status post CABG 5 with congestive heart failure 3. Hypertension, hyperlipidemia 4. Obstructive sleep apnea 5. Anemia 6. Hyperphosphatemia Suggestion: 1. Hemodialysis #2 today in progress with 1L ultrafiltration goal as tolerated 2. Next dialysis for Saturday 11/04 3. Hold cholecalciferol and begin sevelamer 800 mg by mouth 3 times a day with meals 4. Await decision by pt. and his regarding outpatient renal and dialysis follow-up 5. Permanent vascular access as outpatient (Dr. Dill) Subjective Subjective: Patient seems more alert today. Does not offer any complaints. Seen with hemodialysis #2. Spoke with Dr. Dill. Plan is for his permanent vascular access to be done as an outpatient when he is fully stabilized. Objective Vital Signs and I&Os Vital Signs Date Time Temp Pulse Resp B/P B/P Pulse O2 O2 Flow FiO2 Mean Ox Delivery Rate 11/02 1657 98.4 86 18 128/60 93 Nasal 55% Cannula 11/02 1212 90 124/60 05/ 1107 90 142/80 05/03 1100 99.2 90 24 142/80 92 Nasal 75% Cannula 05/ 0900 100.8 99 20 140/70 92 Nasal Cannula 05/03 0853 85 Nasal 50% Cannula / 0800 Nasal Cannula / 0118 98.5 84 18 118/68 95 Nasal Cannula 05/03 0030 Nasal 50% Cannula 05/03 0000 Nasal 50% Cannula 11/01 2248 78 142/74 Intake & Output 11/02 1600 05/ 0400 11/01 1600 11/01 0400 10/31 1600 10/31 0400 Intake Total 240 120 360 360 440 510 Output Total 464 952 7502 1440 850 Balance -660 -180 -2690 360 -1000 -340 Intake, IV 30 Intake, Oral 240 120 360 360 440 480 Output, 1500 Dialysate Output, Urine 799 537 4543 1440 850 Patient 229 lb 231 lb 229 lb Weight Weight Chair scale Briana Lift Standing Scale Measurement Method Physical Exam: General: Well-developed, elderly obese white male on high flow oxygen in NAD Skin: No rash or jaundice HEENT: Conjunctivae pale, sclerae anicteric, mucous membranes moist Neck: Without masses or thyromegaly, no supraclavicular or cervical adenopathy; right IJ catheter in place Chest: Clear with poor air entry bilaterally Heart: Regular rate and rhythm without S3 or rub Abdomen: Obese, soft and nontender without palpable masses or organomegaly Extremities: Without cyanosis or edema Neuro: No focal findings, no myoclonus Current Medications: Current Medications Sig/Tiffanie Start time Last Medication Dose Route Stop Time Status Admin Acetaminophen 650 MG Q6P PRN 10/28 2230 AC PO Albuterol Sulfate 3 ML BID 10/29 2200 AC 11/02 INH 0849 Amlodipine Besylate 10 MG DAILY 10/29 1000 AC 11/02 PO 1107 Atorvastatin Calcium 20 MG DAILY 10/29 1000 AC 11/02 PO 1107 Azithromycin 500 MG DAILY 11/02 1729 AC Sodium Chloride 250 ML IV Calcitriol 0.25 MCG AT BEDTIME 10/29 2199 AC 10/31 PO 2136 Ceftriaxone Sodium 1,000 MG DAILY 11/02 1528 AC 11/02 IV 1806 Cholecalciferol 1,000 IU DAILY 10/29 1000 AC 11/02 PO 1107 Docusate Sodium 100 MG BID 10/29 1000 AC 11/02 PO 1107 Ferrous Sulfate 325 MG BID 10/28 2220 AC 11/02 PO 1107 Gabapentin 100 MG QPM 10/29 2200 AC 11/01 PO 2248 Heparin Sodium 5,000 UNIT Q8 10/28 2214 AC 11/02 (Porcine) SC 1806 Isosorbide 90 MG DAILY 10/29 1000 AC 11/02 Mononitrate PO 1107 Labetalol HCl 300 MG BID 10/28 2220 AC 11/02 PO 1108 Levothyroxine Sodium 0.05 MG DAILY 10/29 1000 AC 11/02 PO 1107 Multivitamins 1 TAB DAILY 11/01 1000 AC 11/02 PO 1107 Polyethylene Glycol 17 GM DAILY 10/31 1727 AC 11/02 PO 1116 Senna/Docusate Sodium 1 TAB BID PRN 10/31 1730 AC PO Results Pertinent Lab Results: Laboratory Tests 11/02 11/02 1110 0655 Chemistry Sodium (137 - 145 mmol/L) 142 Potassium (3.5 - 5.1 mmol/L) 4.4 Chloride (98 - 107 mmol/L) 101 Carbon Dioxide (22 - 30 mmol/L) 23 Anion Gap (5 - 16) 18 H BUN (9 - 20 mg/dL) 99 H Creatinine (0.7 - 1.2 mg/dL) 5.3 *H Estimated GFR (>60 ml/min) 10 L BUN/Creatinine Ratio (7 - 25 %) 18.7 Calcium (8.4 - 10.2 mg/dL) 8.4 Phosphorus (2.5 - 4.5 mg/dL) 6.7 H Magnesium (1.6 - 2.3 mg/dL) 2.4 H Hematology CBC w Diff NO MAN DIFF REQ WBC (4.8 - 10.8 /CUMM) 5.8 RBC (4.70 - 6.10 /CUMM) 3.00 L Hgb (14.0 - 18.0 G/DL) 8.7 L Hct (42 - 52 %) 26.9 L MCV (80.0 - 94.0 FL) 89.6 MCH (27.0 - 31.0 PG) 29.1 RDW (11.5 - 14.5 %) 16.4 H Plt Count (130 - 400 /CUMM) 150 MPV (7.4 - 10.4 FL) 7.7 Gran % (42.2 - 75.2 %) 87.0 H Lymphocytes % (20.5 - 51.1 %) 3.5 L Monocytes % (1.7 - 9.3 %) 9.1 Eosinophils % (0 - 5 %) 0.4 Basophils % (0.0 - 2.0 %) 0 L Absolute Granulocytes (1.4 - 6.5 /CUMM) 5.0 Absolute Lymphocytes (1.2 - 3.4 /CUMM) 0.2 L Absolute Monocytes (0.10 - 0.60 /CUMM) 0.5 Absolute Eosinophils (0.0 - 0.7 /CUMM) 0 Absolute Basophils (0.0 - 0.2 /CUMM) 0 PUBS MCHC (33.0 - 37.0 G/DL) 32.5 L Urines Urinalysis LIGHT H Urine Color (YEL,AMB,STR) YEL Urine Clarity (CLEAR) HAZY H Urine pH (5.0 - 8.0) 6.0 Ur Specific [place] (1.001 - 1.035) 1.025 Urine Protein (NEG,<30 MG/DL) 100 H Urine Ketones (NEG) NEG Urine Nitrite (NEG) NEG Urine Bilirubin (NEG) NEG Urine Urobilinogen (0.1 - 1.0 EU/dl) 0.2 Ur Leukocyte Esterase (NEG) MOD H Ur Microscopic SEDIMENT EXAMINED Urine RBC (0 - 5 /HPF) 25-50 H Urine WBC (0 - 2 /HPF) > 75 H Ur Epithelial Cells (NONE,FEW) FEW Urine Bacteria (NEG/NONE) MANY H Urine Mucus (FEW,NONE) FEW Urine Hemoglobin (NEG) LARGE H Urine Glucose (N MG/DL) NEG 11/01 11/01 11/01 2030 1215 0807 Chemistry Sodium (137 - 145 mmol/L) 142 144 Potassium (3.5 - 5.1 mmol/L) 4.4 4.5 Chloride (98 - 107 mmol/L) 100 99 Carbon Dioxide (22 - 30 mmol/L) 26 25 Anion Gap (5 - 16) 16 19 H BUN (9 - 20 mg/dL) 90 H 125 *H Creatinine (0.7 - 1.2 mg/dL) 5.2 *H 7.2 *H Estimated GFR (>60 ml/min) 11 L 7 L BUN/Creatinine Ratio (7 - 25 %) 17.3 17.4 Phosphorus (2.5 - 4.5 mg/dL) 7.1 H 9.4 H Magnesium (1.6 - 2.3 mg/dL) 2.4 H 2.6 H Hematology CBC w Diff NO MAN DIFF REQ WBC (4.8 - 10.8 /CUMM) 5.7 RBC (4.70 - 6.10 /CUMM) 2.84 L Hgb (14.0 - 18.0 G/DL) 8.1 L Hct (42 - 52 %) 25.4 L MCV (80.0 - 94.0 FL) 89.5 MCH (27.0 - 31.0 PG) 28.6 RDW (11.5 - 14.5 %) 16.5 H Plt Count (130 - 400 /CUMM) 153 MPV (7.4 - 10.4 FL) 7.6 Gran % (42.2 - 75.2 %) 86.8 H Lymphocytes % (20.5 - 51.1 %) 4.3 L Monocytes % (1.7 - 9.3 %) 8.8 Eosinophils % (0 - 5 %) 0 Basophils % (0.0 - 2.0 %) 0.1 Absolute Granulocytes (1.4 - 6.5 /CUMM) 4.9 Absolute Lymphocytes (1.2 - 3.4 /CUMM) 0.2 L Absolute Monocytes (0.10 - 0.60 /CUMM) 0.5 Absolute Eosinophils (0.0 - 0.7 /CUMM) 0 Absolute Basophils (0.0 - 0.2 /CUMM) 0 PUBS MCHC (33.0 - 37.0 G/DL) 31.9 L Serology Hep Bs Antigen (NONREACTIVE) NONREACTIVE Hep Bs Antibody (NONREACTIVE) NONREACTIVE 10/31 10/31 1104 0600 Chemistry Sodium (137 - 145 mmol/L) 142 Potassium (3.5 - 5.1 mmol/L) 4.4 Chloride (98 - 107 mmol/L) 98 Carbon Dioxide (22 - 30 mmol/L) 24 Anion Gap (5 - 16) 19 H BUN (9 - 20 mg/dL) 116 *H Creatinine (0.7 - 1.2 mg/dL) 6.8 *H Estimated GFR (>60 ml/min) 8 L BUN/Creatinine Ratio (7 - 25 %) 17.1 Coagulation PT (9.4 - 12.5 SEC) 12.5 INR (0.90 - 1.17) 1.19 H Hematology CBC w Diff NO MAN DIFF REQ WBC (4.8 - 10.8 /CUMM) 5.7 RBC (4.70 - 6.10 /CUMM) 2.76 L Hgb (14.0 - 18.0 G/DL) 8.2 L Hct (42 - 52 %) 24.8 L MCV (80.0 - 94.0 FL) 89.9 MCH (27.0 - 31.0 PG) 29.7 RDW (11.5 - 14.5 %) 16.6 H Plt Count (130 - 400 /CUMM) 153 MPV (7.4 - 10.4 FL) 7.8 Gran % (42.2 - 75.2 %) 87.1 H Lymphocytes % (20.5 - 51.1 %) 4.6 L Monocytes % (1.7 - 9.3 %) 7.9 Eosinophils % (0 - 5 %) 0.1 Basophils % (0.0 - 2.0 %) 0.3 Absolute Granulocytes (1.4 - 6.5 /CUMM) 5.0 Absolute Lymphocytes (1.2 - 3.4 /CUMM) 0.3 L Absolute Monocytes (0.10 - 0.60 /CUMM) 0.4 Absolute Eosinophils (0.0 - 0.7 /CUMM) 0 Absolute Basophils (0.0 - 0.2 /CUMM) 0 PUBS MCHC (33.0 - 37.0 G/DL) 33.0
[2016-11-03 01:02] VITALS: BP 1126/66; BP 126/66
[2016-11-03 07:51] LABS: ABSOLUTE BASOPHIL COUNT 0 /CUMM (0.0-0.2); ABSOLUTE EOSINOPHIL COUNT 0.1 /CUMM (0.0-0.7); ABSOLUTE GRANULOCYTE CT 2.7 /CUMM (1.4-6.5); ABSOLUTE LYMPH COUNT 0.3 /CUMM (1.2-3.4); ABSOLUTE MONOCYTE COUNT 0.3 /CUMM (0.10-0.60); BASOPHIL % 0.3 % (0.0-2.0); EOSINOPHIL % 1.9 % (0-5); GRANULOCYTE % 80.3 % (42.2-75.2); HEMATOCRIT 24.7 % (42-52); MEAN CORPUSCULAR HGB CONC 32.3 G/DL (33.0-37.0); MEAN CORPUSCULAR VOLUME 89.7 FL (80.0-94.0); MEAN PLATELET VOLUME 7.9 FL (7.4-10.4); PLATELET COUNT 140 /CUMM (130-400); RBC DISTRIBUTION WIDTH 16.2 % (11.5-14.5); RED BLOOD CELL CT 2.76 /CUMM (4.70-6.10); WHITE BLOOD CELL COUNT 3.4 /CUMM (4.8-10.8)
--- NOTE | 2016-11-03 08:09 | PN- Housestaff ---
TANA COLE 11/03/16 0808: Subjective Follow-up For: - ESRD - CHF ex Complaints: no complaints Tele-Events Since Last Visit: - NSR, accelerated junctional rhythm, multiple PVC's, HR 71-85. No overnight events. Subjective: Pt comfortable. He seems improved compared to yesterday. More alert and awake. He was afebrile overightn, and vitals were stable. Currently requiring low oxygen compared to yesterday w/ pulse ox 95%. Review of Systems Constitutional: Reports: see HPI. Objective Last 24 Hrs of Vital Signs/I&O Vital Signs Date Time Temp Pulse Resp B/P B/P Pulse O2 O2 Flow FiO2 Mean Ox Delivery Rate 11/03 0326 92 Nasal 45% Cannula 11/03 0102 98.7 81 18 126/66 90 Nasal 50% Cannula 11/03 0000 Nasal 50% Cannula 11/02 2216 88 148/74 11/02 2019 95 Nasal 50% Cannula 11/02 1657 98.4 86 18 128/60 93 Nasal 55% Cannula 11/02 1600 Nasal 50% Cannula 11/02 1212 90 124/60 05/ 1107 90 142/80 05/ 1100 99.2 90 24 142/80 92 Nasal 75% Cannula 11/02 0900 100.8 99 20 140/70 92 Nasal Cannula 11/02 0853 85 Nasal 50% Cannula Intake & Output 11/03 1600 11/03 0800 05/04 0000 Intake Total 630 Output Total 250 250 Balance -250 380 Intake, IV 270 Intake, Oral 360 Number 2 Bowel Movements Output, Urine 250 250 Patient 227 lb 226 lb Weight Weight Briana Lift Briana Lift Measurement Method Physical Exam General Appearance: No Acute Distress Other Physical Findings: General Exam: lethargic, AAOx3, No acute distress, Skin: No rashes, no breakdown HEENT: PERRLA, EOMI Neck: Supple, No JVD No cervical lymphadenopathy CVS: Reg Rate, Normal S1,S2, No MGR Resp: Decreased air entry b/l, ronchi/rales b/l Abdomen: Soft, No tenderness, Normal Bowel Sounds Neuro: Normal Speech, Strength 5/5 b/l x 4 extremities, Sensation intact, CN III -XII NL, Reflexes 2+ Extremities: No cyanosis, pedal edema, asael cath in place w/o any erythema or tenderness. Current Medications: Current Medications Sig/Tiffanie Start time Last Medication Dose Route Stop Time Status Admin Acetaminophen 650 MG Q6P PRN 10/28 2230 AC PO Albuterol Sulfate 3 ML BID 10/29 2200 AC 11/02 INH 2009 Amlodipine Besylate 10 MG DAILY 10/29 1000 AC 11/02 PO 1107 Atorvastatin Calcium 20 MG DAILY 10/29 1000 AC 11/02 PO 1107 Azithromycin 500 MG DAILY 11/02 1729 AC 11/02 Sodium Chloride 250 ML IV 1913 Bisacodyl 5 MG DAILY 11/03 1000 AC PO Bisacodyl 10 MG ONCE ONE 11/02 2245 DC 11/03 MN 11/02 224 0056 Calcitriol 0.25 MCG AT BEDTIME 10/29 220 AC 11/02 PO 2215 Ceftriaxone Sodium 1,000 MG DAILY 11/02 1528 AC 11/02 IV 1806 Cholecalciferol 1,000 IU DAILY 10/29 1000 AC 11/02 PO 1107 Docusate Sodium 100 MG BID 10/29 1000 AC 11/02 PO 2216 Ferrous Sulfate 325 MG BID 10/28 2220 AC 11/02 PO 2216 Gabapentin 100 MG QPM 10/29 2200 AC 11/02 PO 2215 Heparin Sodium 5,000 UNIT Q8 10/28 2214 AC 11/03 (Porcine) SC 0634 Isosorbide 90 MG DAILY 10/29 1000 AC 11/02 Mononitrate PO 1107 Labetalol HCl 300 MG BID 10/28 2220 AC 11/02 PO 2216 Levothyroxine Sodium 0.05 MG DAILY 10/29 1000 AC 11/02 PO 1107 Multivitamins 1 TAB DAILY 11/01 1000 AC 11/02 PO 1107 Polyethylene Glycol 17 GM DAILY 10/31 1727 AC 11/02 PO 1116 Senna/Docusate Sodium 1 TAB BID PRN 10/31 1730 AC 11/02 PO 2215 Last 24 Hrs of Lab/Jamel Results Last 24 Hrs of Labs/Mics: Laboratory Tests 11/03/16 0700: Anion Gap 14, Estimated GFR 16 L, BUN/Creatinine Ratio 17.6, CBC w Diff Pending , WBC Pending, RBC Pending, Hgb Pending, Hct Pending, MCV Pending, MCH Pending, RDW Pending, Plt Count Pending, MPV Pending, PUBS MCHC Pending 11/02/161999: pH 7.35, pCO2 49 H, pO2 90, HCO3 27, ABG O2 Sat (Measured) 95.0 L, P-50 (Temp Corrected) Y, Carboxyhemoglobin 0.4 L, O2 Concentration % 50%, Temperature 98.7 , O2 Delivery Method NC, Phlebotomy Draw Site RIGHT BRACHIAL 11/02/16 1110: Urinalysis LIGHT H, Urine Color YEL, Urine Clarity HAZY H, Urine pH 6.0, Ur Specific [place] 1.025, Urine Protein 100 H, Urine Ketones NEG, Urine Nitrite NEG, Urine Bilirubin NEG, Urine Urobilinogen 0.2, Ur Leukocyte Esterase MOD H, Ur Microscopic SEDIMENT EXAMINED, Urine RBC 25-50 H, Urine WBC > 75 H, Ur Epithelial Cells FEW, Urine Bacteria MANY H, Urine Mucus FEW, Urine Hemoglobin LARGE H, Urine Glucose NEG Microbiology 11/02 173 URINE ROUT: Urine Culture - RECD 11/02 173 URINE ROUT: Legionella Antigen - COMP 11/02 173 URINE ROUT: Streptococcus pneumoniae Antigen (M - COMP 11/02 1125 BLOOD: Blood Culture - RECD 11/02 111 BLOOD: Blood Culture - RECD Assessment/Plan Assessment: Mr Martinez is an 86-year-old male with past medical history of CAD status post CABG, heart failure with preserved ejection fraction, hypothyroidism, CKD- stage 5 is being evaluated for worsening bilateral lower extremity edema and 8 pound weight gain despite being on furosemide likely due to worsening renal function and volume overload. Below is the problem list and plan: 1. Acute on chronic respiratory failure likely multifactorial-volume overload, acute on CKD and diastolic HF, pulmonary HTN, or pneumonia. Patient initially diuresed with high dose of furosemide, which was discontinued. Check daily weights. Patient has obstructive sleep apnea, and severe pulmonary hypertension which could be contributing to decompensation. Currently on high flow oxygen. Titrate down as the patient tolerates. Chest x-ray revealed worsening pathology , likely from fluid overload, and is underlying pneumonia is not completely ruled out. CT chest revealed likely an infiltrative process, which could be likely be infectious. For now, it could be treated with ceftriaxone and azithromycin. 2. GURPREET on CKD stage 5-kidney function was worsening, and so the decision was made to hemodialyze the patient. Tunneled Asael cath placed without any complications. Hemodialysis 3 sessions so far. Supervisor Records Change-Salvador Zepeda MD advising. In view of long-term hemodialysis, AV fistula was planned, but the decision is still pending. Considering worsening clinical condition, it was deferred for a later time. Started on sevelamir. 3. History of CAD, hypertension- Continue Imdur, labetalol and amlodipine. Juan J Lamas MD advising. Aspirin could be started after a decision is made about placement of aVF. Placement of AVF would most likely be done as an outpatinet. 4. Normocytic anemia secondary to chronic kidney disease- likely anemia of chronic disease. Received Epogen on Monday. H&H stable at this time. 5. Chronic back pain- Continue gabapentin at a lower dose 100 mg at bedtime due to worsening kidney function. May discontinue it, if the pt continues to be lethargic. 6. Hypothyroidism- Continue levothyroxine 7. DVT prophylaxis- Subcutaneous heparin 8. Full code Problem List: 1. Pulmonary vascular congestion 2. Pleural effusion Pain Ratin Pain Location: back Pain Goal: Pain 4 or less Pain Plan: tylenol prn Tomorrow's Labs & Rationales: bep cbc [facility] 11/03/16 1308: Attending MD Review Statement Attending Statement Attending MD Statement: examined this patient, discuss w/resident/PA/PSYCHOLOGIST, agreed w/resident/PA/PSYCHOLOGIST, reviewed EMR data (avail), discussed with nursing, discussed with case mgmt, reviewed images, amended to note Attending Assessment/Plan: Patient seen and examined, much more awake today. Oxygenation is improved. CT chest is consistent with pneumonia. Vital Signs Date Time Temp Pulse Resp B/P B/P Pulse O2 O2 Flow FiO2 Mean Ox Delivery Rate 11/03 1207 93 Nasal 10L Cannula 11/03 1005 80 148/60 11/03 0827 90 Nasal 45% Cannula 11/03 0821 98.3 71 20 144/60 89 Nasal Cannula 11/03 0800 Nasal Cannula 11/03 0326 92 Nasal 45% Cannula 11/03 0102 98.7 81 18 126/66 90 Nasal 50% Cannula 11/03 0000 Nasal 50% Cannula 11/02 2216 88 148/74 05 2019 95 Nasal 50% Cannula 11/02 1657 98.4 86 18 128/60 93 Nasal 55% Cannula 03 1600 Nasal 50% Cannula on exam; awake, nad. cv; s1,s2, rrr resp; decreased bs at bases. abd; soft, nt, bs+ ext; no edema. Laboratory Tests 11/03 05 0700 2000 Blood Gas pH (7.35 - 7.45 PH) 7.35 pCO2 (35 - 45 TORR) 49 H pO2 (80 - 100 TORR) 90 HCO3 (21 - 28 MEQ/L) 27 ABG O2 Sat (Measured) (>96.0 %) 95.0 L P-50 (Temp Corrected) Y Carboxyhemoglobin (1.5 - 5.0 %) 0.4 L O2 Concentration % 50% Temperature (97.0 - 100.0 FARH) 98.7 O2 Delivery Method NC Chemistry Sodium (137 - 145 mmol/L) 143 Potassium (3.5 - 5.1 mmol/L) 3.9 Chloride (98 - 107 mmol/L) 103 Carbon Dioxide (22 - 30 mmol/L) 25 Anion Gap (5 - 16) 14 BUN (9 - 20 mg/dL) 65 H Creatinine (0.7 - 1.2 mg/dL) 3.7 H Estimated GFR (>60 ml/min) 16 L BUN/Creatinine Ratio (7 - 25 %) 17.6 Hematology CBC w Diff NO MAN DIFF REQ WBC (4.8 - 10.8 /CUMM) 3.4 L RBC (4.70 - 6.10 /CUMM) 2.76 L Hgb (14.0 - 18.0 G/DL) 8.0 L Hct (42 - 52 %) 24.7 L MCV (80.0 - 94.0 FL) 89.7 MCH (27.0 - 31.0 PG) 29.0 RDW (11.5 - 14.5 %) 16.2 H Plt Count (130 - 400 /CUMM) 140 MPV (7.4 - 10.4 FL) 7.9 Gran % (42.2 - 75.2 %) 80.3 H Lymphocytes % (20.5 - 51.1 %) 7.7 L Monocytes % (1.7 - 9.3 %) 9.8 H Eosinophils % (0 - 5 %) 1.9 Basophils % (0.0 - 2.0 %) 0.3 Absolute Granulocytes (1.4 - 6.5 /CUMM) 2.7 Absolute Lymphocytes (1.2 - 3.4 /CUMM) 0.3 L Absolute Monocytes (0.10 - 0.60 /CUMM) 0.3 Absolute Eosinophils (0.0 - 0.7 /CUMM) 0.1 Absolute Basophils (0.0 - 0.2 /CUMM) 0 PUBS MCHC (33.0 - 37.0 G/DL) 32.3 L Miscellaneous Phlebotomy Draw Site RIGHT BRACHIAL A/P; 86 y/o M with pmh sig for CAD status post CABG, heart failure with preserved ejection fraction, hypothyroidism, stage V CKD, admitted with weight gain, decreased urination, acute on chronic renal failure, fluid overload and acute hypoxic respiratory failure. Continue current abx, follow up cx. HD/ fluid removal per nephrology. Cr improved today. Urine cx grwoing GNR, will follow up on final results. Continue other current meds. DVT Px; Hep sq. Pt eval.
[2016-11-03 08:21] VITALS: BP 144/60
--- NOTE | 2016-11-03 08:49 | PN- Student ---
Subjective Subjective: IP Day#7 for 86yo male with complicated PHM being treated for respiratory failure in the setting of CKD stage V vs ESRD and CHF admitted for management of fluid overload. Pt developed fever yesterday morning to 100.8. Telemetry events overnight include: sinus rhythm, junctional rhythm, PVCs, HR 71-81. Per nursing, no overnight events. Pt states he made a BM overnight, slept well. No complaints this morning. Current Medications Sig/Tiffanie Start time Last Medication Dose Route Stop Time Status Admin Acetaminophen 650 MG Q6P PRN 10/28 2230 AC PO Albuterol Sulfate 3 ML BID 10/29 2200 AC 11/03 INH 0809 Amlodipine Besylate 10 MG DAILY 10/29 1000 AC 11/03 PO 1006 Atorvastatin Calcium 20 MG 1700 11/03 1700 AC PO Atorvastatin Calcium 20 MG DAILY 10/29 1000 DC 11/02 PO 1107 Azithromycin 500 MG Q24H 11/03 1900 AC Sodium Chloride 250 ML IV Azithromycin 500 MG DAILY 11/02 1729 DC 11/02 Sodium Chloride 250 ML IV 1913 Bisacodyl 5 MG DAILY 11/03 1000 AC PO Bisacodyl 10 MG ONCE ONE 11/02 2245 DC 11/03 AK 11/02 2246 0056 Calcitriol 0.25 MCG AT BEDTIME 10/29 2200 AC 11/02 PO 2215 Ceftriaxone Sodium 1,000 MG Q24H 11/03 1800 AC IV Ceftriaxone Sodium 1,000 MG DAILY 11/02 1528 DC 11/02 IV 1806 Cholecalciferol 1,000 IU DAILY 10/29 1000 AC 11/03 PO 1006 Docusate Sodium 100 MG BID 10/29 1000 AC 11/03 PO 1006 Ferrous Sulfate 325 MG BID 10/28 2220 AC 11/03 PO 1006 Gabapentin 100 MG QPM 10/29 2200 AC 11/02 PO 2215 Heparin Sodium 5,000 UNIT Q8 10/28 2214 AC 11/03 (Porcine) SC 0634 Isosorbide 90 MG DAILY 10/29 1000 AC 11/03 Mononitrate PO 1005 Labetalol HCl 300 MG BID 10/28 2220 AC 11/03 PO 1006 Levothyroxine Sodium 0.05 MG 0600 11/04 0600 AC PO Levothyroxine Sodium 0.05 MG DAILY 10/29 1000 DC 11/03 PO 1006 Multivitamins 1 TAB DAILY 11/01 1000 AC 11/03 PO 1006 Patient Medication 1 ED .STK-MED ONE 11/03 1353 ID Teaching ED 11/03 1354 Polyethylene Glycol 17 GM DAILY 10/31 1727 AC 11/03 PO 1009 Senna/Docusate Sodium 1 TAB BID PRN 10/31 1730 AC 11/02 PO 2215 Objective Objective: Physical Exam: Vital Signs Date Time Temp Pulse Resp B/P B/P Pulse O2 O2 Flow FiO2 Mean Ox Delivery Rate 11/03 0827 90 Nasal 45% Cannula 11/03 0821 98.3 71 20 144/60 89 Nasal Cannula 11/03 0326 92 Nasal 45% Cannula 11/03 0102 98.7 81 18 126/66 90 Nasal 50% Cannula Gen: elderly male, overweight, resting in bed on his left side CV: S1S2, regular rate and rhythm, systolic murmur Lungs: CTABL, exam limited by poor inspiratory effort Abd: ND, absent bowel sounds, soft, NT Ext: no peripheral edema Skin: warm, dry, well-perfused Neuro: AAO, responsive to questions Results Results: Laboratory Tests Microbiology Date/Time Procedure - Status Source Growth 11/02 1734 Urine Culture - RES URINE ROUT GRAM NEGATIVE RODS 11/02 1734 Legionella Antigen - COMP URINE ROUT 11/02 1734 Streptococcus pneumoniae Antigen (M - COMP URINE ROUT 11/02 1125 Blood Culture - RECD BLOOD 11/02 111 Blood Culture - RECD BLOOD 11/03/16 0700: Anion Gap 14, Estimated GFR 16 L, BUN/Creatinine Ratio 17.6, CBC w Diff NO MAN DIFF REQ, RBC 2.76 L, MCV 89.7, MCH 29.0, RDW 16.2 H, MPV 7.9, Gran % 80.3 H, Lymphocytes % 7.7 L, Monocytes % 9.8 H, Eosinophils % 1.9, Basophils % 0.3, Absolute Granulocytes 2.7, Absolute Lymphocytes 0.3 L, Absolute Monocytes 0.3, Absolute Eosinophils 0.1, Absolute Basophils 0, PUBS MCHC 32.3 L 11/02/161999: pH 7.35, pCO2 49 H, pO2 90, HCO3 27, ABG O2 Sat (Measured) 95.0 L, P-50 (Temp Corrected) Y, Carboxyhemoglobin 0.4 L, O2 Concentration % 50%, Temperature 98.7 , O2 Delivery Method NC, Phlebotomy Draw Site RIGHT BRACHIAL 11/02/16 1110: Urinalysis LIGHT H, Urine Color YEL, Urine Clarity HAZY H, Urine pH 6.0, Ur Specific [place] 1.025, Urine Protein 100 H, Urine Ketones NEG, Urine Nitrite NEG, Urine Bilirubin NEG, Urine Urobilinogen 0.2, Ur Leukocyte Esterase MOD H, Ur Microscopic SEDIMENT EXAMINED, Urine RBC 25-50 H, Urine WBC > 75 H, Ur Epithelial Cells FEW, Urine Bacteria MANY H, Urine Mucus FEW, Urine Hemoglobin LARGE H, Urine Glucose NEG Microbiology 11/02 1734 URINE ROUT: Urine Culture - RECD 11/02 1734 URINE ROUT: Legionella Antigen - COMP 11/02 1734 URINE ROUT: Streptococcus pneumoniae Antigen (M - COMP 11/02 112 BLOOD: Blood Culture - RECD 11/02 111 BLOOD: Blood Culture - RECD Diagnostic Imaging SERVICE DATE: 11/02/16 EXAM TYPE: RAD - XRY-PORTABLE CHEST XRAY Comparison: 10/28/2016 FINDINGS: Prominent central pulmonary vasculature suggesting pulmonary edema. Chronically elevated left hemidiaphragm, however, there is been interval development of patchy opacity within the left upper lobe. Right-sided tunneled hemodialysis catheter terminates at the cavoatrial junction. IMPRESSION: Interval development of pulmonary edema. Patchy opacity within the left upper lobe likely represents pulmonary edema, however, a developing infiltrate cannot be entirely excluded. Follow-up imaging recommended status post treatment to ensure resolution. SERVICE DATE: 11/02/16 EXAM TYPE: CAT - CT CHEST WO IV CONTRAST COMPARISON: CT of the chest done on 08/22/2016. IMPRESSION: 1. Evidence of bilateral lower lobar collapse consolidation, appear new on the right and shows significant interval progression on the left since the prior CT of the chest done on 08/22/2016. Note is also made of interval progression of significant airspace disease at left upper lobe of the lung, likely represent pneumonia however, possibility of underlying neoplasm as you know is not excluded. Due to asymmetric involvement of the left lung, pulmonary edema is less favored. 2. Interval development of mediastinal lymphadenopathy, new since 08/22/2016. 3. Interval development of bilateral small pleural effusions (right greater than left). 4. Persistent stable asymmetric elevated left hemidiaphragm, of indeterminate etiology. 5. Ill-defined nonspecific 2.6 cm hepatic hypodense lesion at segment 5 of the right lobe, of indeterminate etiology. Follow-up ultrasound may be considered for further clarification. 6. Stable likely hyperdense cortical cysts at the superior pole of the left kidney and stable left adrenal adenoma. Assessment/Plan Assessment: IP Day #7 for 86yo male with complicated PMH admitted for acute on chronic respiratory failure, and being treated for fluid overload in the setting of acute on chronic kidney stage V and CHF. Hospital course complicated by pneumonia and UTI. Plan: Cardio/Renal: Followed by Cardiology and Nephrology for CKD stage V vs. ESRD and CHF. Per Cardiology, pt's current condition less likely due to CHF and more likely pulmonary involvement per imaging. Continue current medications. Per Nephrology continue hemodialysis. -Start sevelamer - tx for hyperphosphatemia 2/2 to dialysis -d/c calcitriol, vitD - sevelamer decreases bioavailability of calcitriol -continue nephro-snow -3rd dialysis treatment Monday11/04/2016 -continue current medications -consult with family regarding OP hemodialysis planning Pulm/ID: During the morning and throughout the day yesterday, pt was lethargic and difficult to rouse. He also developed fever to 100.8F. Though his lethargy could be due to his CKD/ESRD and need for dialysis, in the setting of new onset fever, infection must be ruled out. Infection work up was started yesterday in light of the change in his clinical presentation. Blood cultures are pending. Urine culture are positive for gram(-) rods >100K colony forming units. Chest imaging showed consolidations and suggested infiltration changes since prior imagining. Pt has two possible sources of infection based on the studies thus far. Diff Dx for pneumonia for this pt includes HCAP vs. CAP vs. aspiration pneumonia. Tests for S. pneumo ag and Legionella ag were both negative, but do not definitively rule out S. pnuemo which is a common pathogen of CAP and HCAP. Gram(-) rods are also common pathogens for HCAP. Pt was given 1000mg Ceftriaxone yesterday. After second dialysis treatment and initiation of abx, pt shows improvement today. -continue Ceftriaxone - broad coverage for gram(-) rods to treat UTI and pneumonia -initiate azithromycin for additional coverage of probable pneumonia -RT: request acapella therapy -per RT discontinue HFNC, start 10L NC -per Pulm - titrate O2 to 92% -monitor for clinical signs of infection -culture sputum if cough becomes productive Vascular: Surgery for AV fistula placement was planned for this afternoon. However, vascular surgery and pulm consulted on the pt yesterday and and determined, based on his clinical status, lethargy, and confusion, that it would be best to defer surgery until after discharge. Nephrology will follow as OP and reassess for access placement. Other considerations: -CT Chest was also notable for a 2.6cm hepatic mass. Looking back at prior imaging from 10/20/15, there are hepatic masses noted on CT of the abdomen and pelvis. Will work with PCP to determine whether further work-up was done at that time. -ambulate/[id number] -PT assessment for dc -monitor urine output - dc cruz prior to dc -consider PO abx if pt tolerating diet
--- NOTE | 2016-11-03 09:09 | PN- Cardiology ---
Subjective Subjective: Telemetry reviewed. Sinus rhythm. This morning he has low atrial rhythm. No cardiac events overnight. Objective Vital Signs and I&Os Vital Signs Date Time Temp Pulse Resp B/P B/P Pulse O2 O2 Flow FiO2 Mean Ox Delivery Rate 11/03 08 90 Nasal 45% Cannula 11/03 0821 98.3 71 20 144/60 89 Nasal Cannula 11/03 0326 92 Nasal 45% Cannula 11/03 0102 98.7 81 18 126/66 90 Nasal 50% Cannula 11/03 0000 Nasal 50% Cannula 11/02 2216 88 148/74 11/02 2019 95 Nasal 50% Cannula 11/02 1657 98.4 86 18 128/60 93 Nasal 55% Cannula 11/02 1600 Nasal 50% Cannula 11/02 1212 90 124/60 05 1107 90 142/80 05 1100 99.2 90 24 142/80 92 Nasal 75% Cannula Intake & Output 11/03 1600 11/03 0800 05/ 0000 11/02 1600 11/02 0800 05 0000 Intake Total 630 240 120 Output Total 250 250 425 475 300 Balance -250 380 -185 -475 -180 Intake, IV 270 Intake, Oral 360 240 120 Number 2 Bowel Movements Output, Urine 250 250 425 475 300 Patient 227 lb 226 lb 229 lb 231 lb Weight Weight Briana Lift Briana Lift Chair scale Briana Lift Measurement Method Physical Exam: On general exam patient appears slightly cachectic and pale. Head normocephalic atraumatic Eyes sclera anicteric conjunctiva showed pallor extraocular muscles were normal Neck no jugular venous distention no thyroid masses no palpable nodes Chest lungs decreased air entry in both bases and a few scattered wheezes. Heart regular rhythm with a grade 2/6 ejection systolic murmur. Abdomen soft nontender no organomegaly Extremities no clubbing cyanosis or pedal edema Neurological no gross motor or sensory deficits Current Medications: Current Medications Sig/Tiffanie Start time Last Medication Dose Route Stop Time Status Admin Acetaminophen 650 MG Q6P PRN 10/28 2230 AC PO Albuterol Sulfate 3 ML BID 10/29 2200 AC 11/03 INH 0809 Amlodipine Besylate 10 MG DAILY 10/29 1000 AC 11/02 PO 1107 Atorvastatin Calcium 20 MG DAILY 10/29 1000 AC 11/02 PO 1107 Azithromycin 500 MG DAILY 11/02 1729 AC 11/02 Sodium Chloride 250 ML IV 1913 Bisacodyl 5 MG DAILY 11/03 1000 AC PO Bisacodyl 10 MG ONCE ONE 11/02 2244 DC 11/03 [place] 11/02 Calcitriol 0.25 MCG AT BEDTIME 10/29 2199 AC 11/02 PO 221 Ceftriaxone Sodium 1,000 MG DAILY 11/02 1528 AC 11/02 IV 1806 Cholecalciferol 1,000 IU DAILY 10/29 1000 AC 11/02 PO 110 Docusate Sodium 100 MG BID 10/29 1000 AC 11/02 PO 221 Ferrous Sulfate 325 MG BID 10/28 222 AC 11/02 PO 2216 Gabapentin 100 MG QPM 10/29 2199 AC 11/02 PO 221 Heparin Sodium 5,000 UNIT Q8 10/28 2213 AC 11/03 (Porcine) SC 0634 Isosorbide 90 MG DAILY 10/29 1000 AC 11/02 Mononitrate PO 110 Labetalol HCl 300 MG BID 10/29 2219 AC 11/02 PO 221 Levothyroxine Sodium 0.05 MG DAILY 10/29 1000 AC 11/02 PO 1107 Multivitamins 1 TAB DAILY 11/01 1000 AC 11/02 PO 1107 Polyethylene Glycol 17 GM DAILY 10/31 1727 AC 11/02 PO 1116 Senna/Docusate Sodium 1 TAB BID PRN 10/31 173 AC 11/02 PO 221 Results Last 48 Hrs of Labs/Mics: Laboratory Tests 11/03/16 0700: Anion Gap 14, Estimated GFR 16 L, BUN/Creatinine Ratio 17.6, CBC w Diff NO MAN DIFF REQ, RBC 2.76 L, MCV 89.7, MCH 29.0, RDW 16.2 H, MPV 7.9, Gran % 80.3 H, Lymphocytes % 7.7 L, Monocytes % 9.8 H, Eosinophils % 1.9, Basophils % 0.3, Absolute Granulocytes 2.7, Absolute Lymphocytes 0.3 L, Absolute Monocytes 0.3, Absolute Eosinophils 0.1, Absolute Basophils 0, PUBS MCHC 32.3 L 11/02/161999: pH 7.35, pCO2 49 H, pO2 90, HCO3 27, ABG O2 Sat (Measured) 95.0 L, P-50 (Temp Corrected) Y, Carboxyhemoglobin 0.4 L, O2 Concentration % 50%, Temperature 98.7 , O2 Delivery Method NC, Phlebotomy Draw Site RIGHT BRACHIAL 11/02/16 1110: Urinalysis LIGHT H, Urine Color YEL, Urine Clarity HAZY H, Urine pH 6.0, Ur Specific [place] 1.025, Urine Protein 100 H, Urine Ketones NEG, Urine Nitrite NEG, Urine Bilirubin NEG, Urine Urobilinogen 0.2, Ur Leukocyte Esterase MOD H, Ur Microscopic SEDIMENT EXAMINED, Urine RBC 25-50 H, Urine WBC > 75 H, Ur Epithelial Cells FEW, Urine Bacteria MANY H, Urine Mucus FEW, Urine Hemoglobin LARGE H, Urine Glucose NEG 11/02/16 0655: Anion Gap 18 H, Estimated GFR 10 L, BUN/Creatinine Ratio 18.7, Calcium 8.4, Phosphorus 6.7 H, Magnesium 2.4 H, CBC w Diff NO MAN DIFF REQ, RBC 3.00 L, MCV 89.6, MCH 29.1, RDW 16.4 H, MPV 7.7, Gran % 87.0 H, Lymphocytes % 3.5 L, Monocytes % 9.1, Eosinophils % 0.4, Basophils % 0 L, Absolute Granulocytes 5.0, Absolute Lymphocytes 0.2 L, Absolute Monocytes 0.5, Absolute Eosinophils 0, Absolute Basophils 0, PUBS MCHC 32.5 L 11/01/16 2030: Anion Gap 16, Estimated GFR 11 L, BUN/Creatinine Ratio 17.3, Phosphorus 7.1 H, Magnesium 2.4 H 11/01/16 1215: Hep Bs Antigen NONREACTIVE, Hep Bs Antibody NONREACTIVE Microbiology 11/02 1734 URINE ROUT: Legionella Antigen - COMP 11/02 1734 URINE ROUT: Streptococcus pneumoniae Antigen (M - COMP Assessment/Plan Assessment/Plan In summary this 86-year-old gentleman has the following problems 1. Chronic diastolic heart failure 2. Coronary disease by history status post coronary bypass surgery 3. End-stage renal disease with plan for dialysis 4. Chronic anemia 5. Hypertension 6. Hyperlipidemia 7. Obstructive sleep apnea/hypoventilation 8. Mild to moderate mitral/aortic stenosis by recent echocardiogram 9. History of significant carotid stenosis being managed medically by vascular 10. Hypoxia/respiratory failure CT scan of the lung shows extensive consolidation in both lower lobes and airspace disease with air bronchograms in the left upper lobe. The unilateral appearance of this does not suggest congestive heart failure. He has acute on chronic respiratory failure. CT scan of the chest suggests dense consolidation and may be related to obstructive pathology. Neoplasm is considered and bronchoscopy might be informative. A component of acute on chronic fluid overload is related to his advanced renal insufficiency requiring dialysis. Her prognosis appears somewhat poor and await input from pulmonary. Continue telemetry? Yes
--- NOTE | 2016-11-03 09:14 | PN- Pulmonary ---
VIKKI BAIN,SHARLENE 11/03/16 0907: Subjective HPI/Critical Care Issues: Patient seen and examined. Comfortable in his hospital bed. Received dialysis yesterday. States that his shortness of breath is slightly improved as compared to yesterday. Objective Current Medications: Current Medications Sig/Tiffanie Start time Last Medication Dose Route Stop Time Status Admin Acetaminophen 650 MG Q6P PRN 10/28 2230 AC PO Albuterol Sulfate 3 ML BID 10/29 2200 AC 11/03 INH 0809 Amlodipine Besylate 10 MG DAILY 10/29 1000 AC 11/02 PO 1107 Atorvastatin Calcium 20 MG DAILY 10/29 1000 AC 11/02 PO 1107 Azithromycin 500 MG DAILY 11/02 1729 AC 11/02 Sodium Chloride 250 ML IV 1913 Bisacodyl 5 MG DAILY 11/03 1000 AC PO Bisacodyl 10 MG ONCE ONE 11/02 2245 DC 11/03 [place] 11/02 2246 0056 Calcitriol 0.25 MCG AT BEDTIME 10/29 2200 AC 11/02 PO 2215 Ceftriaxone Sodium 1,000 MG DAILY 11/02 1528 AC 11/02 IV 1806 Cholecalciferol 1,000 IU DAILY 10/29 1000 AC 11/02 PO 1107 Docusate Sodium 100 MG BID 10/29 1000 AC 11/02 PO 2216 Ferrous Sulfate 325 MG BID 10/28 2220 AC 11/02 PO 2216 Gabapentin 100 MG QPM 10/29 2200 AC 11/02 PO 2215 Heparin Sodium 5,000 UNIT Q8 10/28 2214 AC 11/03 (Porcine) SC 0634 Isosorbide 90 MG DAILY 10/29 1000 AC 11/02 Mononitrate PO 1107 Labetalol HCl 300 MG BID 10/28 2220 AC 11/02 PO 2216 Levothyroxine Sodium 0.05 MG DAILY 10/29 1000 AC 11/02 PO 1107 Multivitamins 1 TAB DAILY 11/01 1000 AC 11/02 PO 1107 Polyethylene Glycol 17 GM DAILY 10/31 1727 AC 11/02 PO 1116 Senna/Docusate Sodium 1 TAB BID PRN 10/31 1730 AC 11/02 PO 2215 Vital Signs & I&O Last 24 Hrs of Vitals and I&O: Vital Signs Date Time Temp Pulse Resp B/P B/P Pulse O2 O2 Flow FiO2 Mean Ox Delivery Rate 05/04 0827 90 Nasal 45% Cannula 05/04 0821 98.3 71 20 144/60 89 Nasal Cannula 05/04 0326 92 Nasal 45% Cannula 05/04 0102 98.7 81 18 126/66 90 Nasal 50% Cannula 05/04 0000 Nasal 50% Cannula 05/ 2216 88 148/74 05/ 2019 95 Nasal 50% Cannula 05/03 1657 98.4 86 18 128/60 93 Nasal 55% Cannula 05/03 1600 Nasal 50% Cannula 05/ 1212 90 124/60 05/03 1107 90 142/80 05/03 1100 99.2 90 24 142/80 92 Nasal 75% Cannula Intake & Output / 1600 05/04 0800 05/ 0000 Intake Total 630 Output Total 250 250 Balance -250 380 Intake, IV 270 Intake, Oral 360 Number 2 Bowel Movements Output, Urine 250 250 Patient 227 lb 226 lb Weight Weight Brinaa Lift Briana Lift Measurement Method Exam General Appearance: well developed/nourished, alert, awake, comfortable Head: atraumatic Ears, Nose, Throat: normal pharynx, normal ENT inspection Respiratory: crackles, rhonchi Cardiovascular: regular rate/rhythm, 3/6 COCO RUSB Abdomen: normal bowel sounds, soft, non-tender Extremities: normal inspection Skin: Tunneled catheter right precordium, clean, dry, no errythema Diagnostic Data CXR Findings: PATIENT: IRIS DREW SR PRESENT AGE: 86 PATIENT ACCOUNT NO: [id number] : 31 LOCATION: [facility] ORDERING PHYSICIAN: TANA COLE MD SERVICE DATE: 11/02/16- EXAM TYPE: RAD - XRY-PORTABLE CHEST XRAY EXAMINATION: XR PORTABLE CHEST CLINICAL INFORMATION: Shortness of breath and bibasilar crackles. Rule out CHF. COMPARISON: Chest x-ray 10/28/2016 TECHNIQUE: Portable frontal view of the chest was obtained. FINDINGS: Prominent central pulmonary vasculature suggesting pulmonary edema. Chronically elevated left hemidiaphragm, however, there is been interval development of patchy opacity within the left upper lobe. Right-sided tunneled hemodialysis catheter terminates at the cavoatrial junction. IMPRESSION: Interval development of pulmonary edema. Patchy opacity within the left upper lobe likely represents pulmonary edema, however, a developing infiltrate cannot be entirely excluded. Follow-up imaging recommended status post treatment to ensure resolution. DICTATED BY: PHUONG DEL RIO MD DATE/TIME DICTATED:11/02/161048 MECHANIC'S ASSISTANT:ROBERT DATE/TIME TRANSCRIBED:11/02/161048 CONFIDENTIAL, DO NOT COPY WITHOUT APPROPRIATE AUTHORIZATION. <Electronically signed in Other Vendor System> SIGNED BY: PHUONG DEL RIO MD 11/02/[address] Scan Findings: PATIENT: IRIS DREW SR PRESENT AGE: 86 PATIENT ACCOUNT NO: [id number] : 31 LOCATION: [facility] ORDERING PHYSICIAN: TANA COLE MD SERVICE DATE: 11/02/16- EXAM TYPE: CAT - CT CHEST WO IV CONTRAST EXAMINATION: CT CHEST WITHOUT CONTRAST CLINICAL INFORMATION: 86-year-old male history of CHF, worsening kidney function, on dialysis. Lethargic. Clinical diagnosis of pneumonia versus pulmonary edema. Patient requiring high oxygen. COMPARISON: CT of the chest done on 08/22/2016. TECHNIQUE: Multidetector volumetric CT imaging of the chest was done. Axial MIP volume rendering provided. Sagittal and coronal reformatted images were obtained. DLP: 937.82 mGy-cm FINDINGS: TRACKMOBILE OPERATOR: Abnormally elevated left hemidiaphragm is noted with nonspecific airspace opacity involving aerated part of the left lung and right perihilar region. LUNGS: Dense airspace consolidation is noted at both lower lobes of the lung (left greater than right), appear new on the right and shows significant interval progression on the left since the prior study dated 08/22/2016. Interval development of dense perihilar, central airspace opacities are also noted associated with air bronchogram at left upper lobe, shows interval progression since prior study. The right lung field is relatively appeared well aerated except for right lower lobe which shows dense airspace consolidation. The findings would be most consistent with left upper lobar pneumonia and likely collapsed consolidation of both lower lobes. Possibility of neoplasm involving the left upper lobe as you know cannot be absolutely excluded. Possibility of CHF/pulmonary edema would be less likely given the unilateral distribution of airspace disease. The tracheobronchial tree appeared patent. MEDIASTINUM: There is mild cardiomegaly present. Extensive coronary arterial calcifications are present. There is a right-sided central line present, new since prior study. There are multiple enlarged pretracheal, right paratracheal, precarinal lymph nodes noted, appear new since prior study dated 08/22/2016. PLEURA: Bilateral small pleural effusions are noted (right greater than left), new since prior study. AXILLA: No lymphadenopathy. UPPER ABDOMEN: Persistent stable asymmetric elevated left hemidiaphragm is noted. Solitary nonspecific hepatic hypodense lesion within the right lobe, ill-defined in outline, at segment 5, measures approximately 2.6 cm at its maximum dimension, unchanged, not optimally characterized. Follow-up ultrasound may be considered for further clarification, if clinically appropriate. Previously identified left adrenal adenoma and hyperdense exophytic masses at the superior anterior cortex of the left kidney appear unchanged as well, may represent hyperdense cysts. OSSEOUS STRUCTURES: No suspicious lytic or sclerotic abnormality. Intraspinal stimulator leads are visualized, appear unchanged. IMPRESSION: 1. Evidence of bilateral lower lobar collapse consolidation, appear new on the right and shows significant interval progression on the left since the prior CT of the chest done on 08/22/2016. Note is also made of interval progression of significant airspace disease at left upper lobe of the lung, likely represent pneumonia however, possibility of underlying neoplasm as you know is not excluded. Due to asymmetric involvement of the left lung, pulmonary edema is less favored. 2. Interval development of mediastinal lymphadenopathy, new since 08/22/2016. 3. Interval development of bilateral small pleural effusions (right greater than left). 4. Persistent stable asymmetric elevated left hemidiaphragm, of indeterminate etiology. 5. Ill-defined nonspecific 2.6 cm hepatic hypodense lesion at segment 5 of the right lobe, of indeterminate etiology. Follow-up ultrasound may be considered for further clarification. 6. Stable likely hyperdense cortical cysts at the superior pole of the left kidney and stable left adrenal adenoma. DICTATED BY: KATHARINA CRUZ MD DATE/TIME DICTATED:11/02/161637 MECHANIC'S ASSISTANT:ROBERT DATE/TIME TRANSCRIBED:11/02/161637 CONFIDENTIAL, DO NOT COPY WITHOUT APPROPRIATE AUTHORIZATION. <Electronically signed in Other Vendor System> SIGNED BY: KATHARINA CRUZ MD 11/02/16 1710 Impression/Plan Impression/Plan Impression/Plan: Assessment- 1. Persistent dyspnea, etiology is multifactorial 2/2- acute on chronic diastolic heart failure in conjunction with renal failure, chronic pulmonary hypertension, obesity hypoventilation, new multilobar consolidations as seen by chest CT 2. Acute on chronic diastolic heart failure 3. Acute on chronic renal failure, with initiation of dialysis since 11/01/2016 , received dialysis again yesterday on 11/02/2016 4. Chronic anemia 5. Hypertension 6. Hypothyroidism 7. Hyperlipidemia 8. Chronic pulmonary hypertension 9. Constipation, had bowel movement yesterday Plan- - Continue high flow oxygen, taper oxygen requirements to maintain an oxygen saturation of greater than 92% at all times; at present he is down to 45% - Follow cultures - Incentive spirometry - Sputum culture if able to expectorate - Albuterol nebulizer every 4 hours while awake - Lasix is on hold per recommendations from nephrology and cardiology - Continue IV ceftriaxone and azithromycin for now - Management of other medical problems per primary team - DVT prophylaxis at all times JAY GRIFFIN MD 11/03/16 1039: Impression/Plan Impression/Plan Recommendations: Jay Mustafa M.D. have examined this patient, reviewed available EMR data, personally reviewed images, discussed with resident/PA/MARKER MACHINE ATTENDANT, discussed management plan with housestaff and nursing staff, discussed managment plan all of healthcare providers, discussed management plan with patient and/or family, agreed with resident/PA/MARKER MACHINE ATTENDANT. The past history and parts of the chart have been autopopulated. Patient appears to be improved his oxygen saturation is improved from 75% FiO2 to 45% FiO2. His white count stable and he is afebrile. I see no reason to switch his antibiotics at this time. We can continue to treat him for community- acquired pneumonia with ceftriaxone and Zithromax at this time with aggressive diuresis and fluid removal per cardiology and nephrology as tolerated.
--- NOTE | 2016-11-03 11:30 | PN- Nephrology ---
Assessment/Plan Assessment: 1. 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 Coronary artery disease status post CABG 5 with congestive heart failure 3. Hypertension, hyperlipidemia 4. Obstructive sleep apnea 5. Anemia 6. Hyperphosphatemia Suggestion: 1. Hemodialysis #3 tomorrow 2. Hold cholecalciferol and calcitriol; begin sevelamer 800 mg by mouth 3 times a day with meals 3. Will order Epogen with his dialysis 4. Await decision by pt. and his regarding outpatient renal and dialysis follow-up 5. Permanent vascular access as outpatient (Dr. Dill) Subjective Subjective: Patient very alert this a.m. with no complaints. Specifically, he denies shortness of breath, pain, nausea or vomiting. He is fully coherent and oriented. Objective Vital Signs and I&Os Vital Signs Date Time Temp Pulse Resp B/P B/P Pulse O2 O2 Flow FiO2 Mean Ox Delivery Rate 11/03 1005 80 148/60 11/03 0827 90 Nasal 45% Cannula 11/03 0821 98.3 71 20 144/60 89 Nasal Cannula 11/03 0800 Nasal Cannula 11/03 0326 92 Nasal 45% Cannula 11/03 0102 98.7 81 18 126/66 90 Nasal 50% Cannula 11/03 0000 Nasal 50% Cannula 11/02 2216 88 148/74 11/02 2019 95 Nasal 50% Cannula 05/ 1657 98.4 86 18 128/60 93 Nasal 55% Cannula 11/02 1600 Nasal 50% Cannula 11/02 1212 90 124/60 Intake & Output 11/03 1600 05/04 0400 05/03 1600 05/03 0400 05/02 1600 05/ 0400 Intake Total 630 240 120 360 360 Output Total 250 250 619 690 6054 Balance -250 380 -660 -180 -2690 360 Intake, IV 270 Intake, Oral 360 240 120 360 360 Number 2 Bowel Movements Output, 1500 Dialysate Output, Urine 250 [phone] [id number] Patient 227 lb 226 lb 231 lb Weight Weight Briana Lift Briana Lift Briana Lift Measurement Method Physical Exam: General: Well-developed, elderly obese white male on nasal oxygen in NAD Skin: No rash or jaundice HEENT: Conjunctivae pale, sclerae anicteric, mucous membranes moist Neck: Without masses or thyromegaly, no supraclavicular or cervical adenopathy; right IJ catheter in place Chest: Clear with few scattered rales Heart: Regular rate and rhythm without S3 or rub Abdomen: Obese, soft and nontender without palpable masses or organomegaly Extremities: Without cyanosis or edema Neuro: No focal findings, no asterixis or myoclonus Current Medications: Current Medications Sig/Tiffanie Start time Last Medication Dose Route Stop Time Status Admin Acetaminophen 650 MG Q6P PRN 10/28 2230 AC PO Albuterol Sulfate 3 ML BID 10/29 2200 AC 11/03 INH 0809 Amlodipine Besylate 10 MG DAILY 10/29 1000 AC 11/03 PO 1006 Atorvastatin Calcium 20 MG 1700 11/03 1700 AC PO Atorvastatin Calcium 20 MG DAILY 10/29 1000 DC 11/02 PO 1107 Azithromycin 500 MG Q24H 11/03 1900 AC Sodium Chloride 250 ML IV Azithromycin 500 MG DAILY 11/02 1729 DC 11/02 Sodium Chloride 250 ML IV 1913 Bisacodyl 5 MG DAILY 11/03 1000 AC PO Bisacodyl 10 MG ONCE ONE 11/02 2245 DC 11/03 MO 11/02 2246 0056 Calcitriol 0.25 MCG AT BEDTIME 10/29 2200 AC 11/02 PO 2215 Ceftriaxone Sodium 1,000 MG Q24H 11/03 1800 AC IV Ceftriaxone Sodium 1,000 MG DAILY 11/02 1528 DC 11/02 IV 1806 Cholecalciferol 1,000 IU DAILY 10/29 1000 AC 11/03 PO 1006 Docusate Sodium 100 MG BID 10/29 1000 AC 11/03 PO 1006 Ferrous Sulfate 325 MG BID 10/28 2220 AC 11/03 PO 1006 Gabapentin 100 MG QPM 10/29 2200 AC 11/02 PO 2215 Heparin Sodium 5,000 UNIT Q8 10/28 2214 AC 11/03 (Porcine) SC 0634 Isosorbide 90 MG DAILY 10/29 1000 AC 11/03 Mononitrate PO 1005 Labetalol HCl 300 MG BID 10/28 2220 AC 11/03 PO 1006 Levothyroxine Sodium 0.05 MG 0600 11/04 0600 AC PO Levothyroxine Sodium 0.05 MG DAILY 10/29 1000 DC 11/03 PO 1006 Multivitamins 1 TAB DAILY 11/01 1000 AC 11/03 PO 1006 Polyethylene Glycol 17 GM DAILY 10/31 1727 AC 11/03 PO 1009 Senna/Docusate Sodium 1 TAB BID PRN 10/31 1730 AC 11/02 PO 3364 Results Pertinent Lab Results: Laboratory Tests 11/03 11/02 0700 2000 Blood Gas pH (7.35 - 7.45 PH) 7.35 pCO2 (35 - 45 TORR) 49 H pO2 (80 - 100 TORR) 90 HCO3 (21 - 28 MEQ/L) 27 ABG O2 Sat (Measured) (>96.0 %) 95.0 L P-50 (Temp Corrected) Y Carboxyhemoglobin (1.5 - 5.0 %) 0.4 L O2 Concentration % 50% Temperature (97.0 - 100.0 FARH) 98.7 O2 Delivery Method NC Chemistry Sodium (137 - 145 mmol/L) 143 Potassium (3.5 - 5.1 mmol/L) 3.9 Chloride (98 - 107 mmol/L) 103 Carbon Dioxide (22 - 30 mmol/L) 25 Anion Gap (5 - 16) 14 BUN (9 - 20 mg/dL) 65 H Creatinine (0.7 - 1.2 mg/dL) 3.7 H Estimated GFR (>60 ml/min) 16 L BUN/Creatinine Ratio (7 - 25 %) 17.6 Hematology CBC w Diff NO MAN DIFF REQ WBC (4.8 - 10.8 /CUMM) 3.4 L RBC (4.70 - 6.10 /CUMM) 2.76 L Hgb (14.0 - 18.0 G/DL) 8.0 L Hct (42 - 52 %) 24.7 L MCV (80.0 - 94.0 FL) 89.7 MCH (27.0 - 31.0 PG) 29.0 RDW (11.5 - 14.5 %) 16.2 H Plt Count (130 - 400 /CUMM) 140 MPV (7.4 - 10.4 FL) 7.9 Gran % (42.2 - 75.2 %) 80.3 H Lymphocytes % (20.5 - 51.1 %) 7.7 L Monocytes % (1.7 - 9.3 %) 9.8 H Eosinophils % (0 - 5 %) 1.9 Basophils % (0.0 - 2.0 %) 0.3 Absolute Granulocytes (1.4 - 6.5 /CUMM) 2.7 Absolute Lymphocytes (1.2 - 3.4 /CUMM) 0.3 L Absolute Monocytes (0.10 - 0.60 /CUMM) 0.3 Absolute Eosinophils (0.0 - 0.7 /CUMM) 0.1 Absolute Basophils (0.0 - 0.2 /CUMM) 0 PUBS MCHC (33.0 - 37.0 G/DL) 32.3 L Miscellaneous Phlebotomy Draw Site RIGHT BRACHIAL 11/02 11/02 1110 0655 Chemistry Sodium (137 - 145 mmol/L) 142 Potassium (3.5 - 5.1 mmol/L) 4.4 Chloride (98 - 107 mmol/L) 101 Carbon Dioxide (22 - 30 mmol/L) 23 Anion Gap (5 - 16) 18 H BUN (9 - 20 mg/dL) 99 H Creatinine (0.7 - 1.2 mg/dL) 5.3 *H Estimated GFR (>60 ml/min) 10 L BUN/Creatinine Ratio (7 - 25 %) 18.7 Calcium (8.4 - 10.2 mg/dL) 8.4 Phosphorus (2.5 - 4.5 mg/dL) 6.7 H Magnesium (1.6 - 2.3 mg/dL) 2.4 H Hematology CBC w Diff NO MAN DIFF REQ WBC (4.8 - 10.8 /CUMM) 5.8 RBC (4.70 - 6.10 /CUMM) 3.00 L Hgb (14.0 - 18.0 G/DL) 8.7 L Hct (42 - 52 %) 26.9 L MCV (80.0 - 94.0 FL) 89.6 MCH (27.0 - 31.0 PG) 29.1 RDW (11.5 - 14.5 %) 16.4 H Plt Count (130 - 400 /CUMM) 150 MPV (7.4 - 10.4 FL) 7.7 Gran % (42.2 - 75.2 %) 87.0 H Lymphocytes % (20.5 - 51.1 %) 3.5 L Monocytes % (1.7 - 9.3 %) 9.1 Eosinophils % (0 - 5 %) 0.4 Basophils % (0.0 - 2.0 %) 0 L Absolute Granulocytes (1.4 - 6.5 /CUMM) 5.0 Absolute Lymphocytes (1.2 - 3.4 /CUMM) 0.2 L Absolute Monocytes (0.10 - 0.60 /CUMM) 0.5 Absolute Eosinophils (0.0 - 0.7 /CUMM) 0 Absolute Basophils (0.0 - 0.2 /CUMM) 0 PUBS MCHC (33.0 - 37.0 G/DL) 32.5 L Urines Urinalysis LIGHT H Urine Color (YEL,AMB,STR) YEL Urine Clarity (CLEAR) HAZY H Urine pH (5.0 - 8.0) 6.0 Ur Specific [place] (1.001 - 1.035) 1.025 Urine Protein (NEG,<30 MG/DL) 100 H Urine Ketones (NEG) NEG Urine Nitrite (NEG) NEG Urine Bilirubin (NEG) NEG Urine Urobilinogen (0.1 - 1.0 EU/dl) 0.2 Ur Leukocyte Esterase (NEG) MOD H Ur Microscopic SEDIMENT EXAMINED Urine RBC (0 - 5 /HPF) 25-50 H Urine WBC (0 - 2 /HPF) > 75 H Ur Epithelial Cells (NONE,FEW) FEW Urine Bacteria (NEG/NONE) MANY H Urine Mucus (FEW,NONE) FEW Urine Hemoglobin (NEG) LARGE H Urine Glucose (N MG/DL) NEG 11/01 11/01 11/01 2030 1215 0807 Chemistry Sodium (137 - 145 mmol/L) 142 144 Potassium (3.5 - 5.1 mmol/L) 4.4 4.5 Chloride (98 - 107 mmol/L) 100 99 Carbon Dioxide (22 - 30 mmol/L) 26 25 Anion Gap (5 - 16) 16 19 H BUN (9 - 20 mg/dL) 90 H 125 *H Creatinine (0.7 - 1.2 mg/dL) 5.2 *H 7.2 *H Estimated GFR (>60 ml/min) 11 L 7 L BUN/Creatinine Ratio (7 - 25 %) 17.3 17.4 Phosphorus (2.5 - 4.5 mg/dL) 7.1 H 9.4 H Magnesium (1.6 - 2.3 mg/dL) 2.4 H 2.6 H Hematology CBC w Diff NO MAN DIFF REQ WBC (4.8 - 10.8 /CUMM) 5.7 RBC (4.70 - 6.10 /CUMM) 2.84 L Hgb (14.0 - 18.0 G/DL) 8.1 L Hct (42 - 52 %) 25.4 L MCV (80.0 - 94.0 FL) 89.5 MCH (27.0 - 31.0 PG) 28.6 RDW (11.5 - 14.5 %) 16.5 H Plt Count (130 - 400 /CUMM) 153 MPV (7.4 - 10.4 FL) 7.6 Gran % (42.2 - 75.2 %) 86.8 H Lymphocytes % (20.5 - 51.1 %) 4.3 L Monocytes % (1.7 - 9.3 %) 8.8 Eosinophils % (0 - 5 %) 0 Basophils % (0.0 - 2.0 %) 0.1 Absolute Granulocytes (1.4 - 6.5 /CUMM) 4.9 Absolute Lymphocytes (1.2 - 3.4 /CUMM) 0.2 L Absolute Monocytes (0.10 - 0.60 /CUMM) 0.5 Absolute Eosinophils (0.0 - 0.7 /CUMM) 0 Absolute Basophils (0.0 - 0.2 /CUMM) 0 PUBS MCHC (33.0 - 37.0 G/DL) 31.9 L Serology Hep Bs Antigen (NONREACTIVE) NONREACTIVE Hep Bs Antibody (NONREACTIVE) NONREACTIVE
[2016-11-03 16:00] VITALS: BP 130/62
[2016-11-04 01:44] VITALS: BP 136/62
--- NOTE | 2016-11-04 07:16 | PN- Housestaff ---
TANA COLE 11/04/16 0715: Subjective Follow-up For: - CHF exacerbation - CKD stage 5 Complaints: no complaints Tele-Events Since Last Visit: NSR, first-degree heart block and heart rate 68-73, MD interval 0.24, 0.26. Subjective: Patient comfortable this morning. Did not have any complaints. Vitals stable overnight. Patient seems improved compared to yesterday. He is alert oriented Review of Systems Constitutional: Reports: see HPI. Objective Last 24 Hrs of Vital Signs/I&O Vital Signs Date Time Temp Pulse Resp B/P B/P Pulse O2 O2 Flow FiO2 Mean Ox Delivery Rate 11/04 0144 98.1 72 18 136/62 94 Nasal Cannula 11/04 0000 Nasal 5.0L Cannula 11/03 2145 65 146/00 11/03 203 93 Nasal 5.0L Cannula 11/03 1600 Nasal 8L Cannula 11/03 1600 97.9 67 18 130/62 95 Nasal 8L Cannula 11/03 1207 93 Nasal 10L Cannula 11/03 1005 80 148/60 11/03 0827 90 Nasal 45% Cannula 11/03 0821 98.3 71 20 144/60 89 Nasal Cannula 11/03 0800 Nasal Cannula Intake & Output 11/04 0800 05/05 0000 04 1600 Intake Total 50 750 400 Output Total 350 200 300 Balance -300 550 100 Intake, IV 270 Intake, Oral 50 480 400 Output, Urine 350 200 300 Physical Exam General Appearance: No Acute Distress Other Physical Findings: General Exam: lethargic, AAOx3, No acute distress, Skin: No rashes, no breakdown HEENT: PERRLA, EOMI Neck: Supple, No JVD No cervical lymphadenopathy CVS: Reg Rate, Normal S1,S2, No MGR Resp: Decreased air entry b/l, ronchi/rales b/l Abdomen: Soft, No tenderness, Normal Bowel Sounds Neuro: Normal Speech, Strength 5/5 b/l x 4 extremities, Sensation intact, CN III -XII NL, Reflexes 2+ Extremities: No cyanosis, pedal edema, asael cath in place w/o any erythema or tenderness. Current Medications: Current Medications Sig/Tiffanie Start time Last Medication Dose Route Stop Time Status Admin Acetaminophen 650 MG Q6P PRN 10/28 2229 AC PO Albuterol Sulfate 3 ML BID 10/29 2199 AC 11/03 INH 2031 Amlodipine Besylate 10 MG DAILY 10/29 1000 AC 11/03 PO 1006 Atorvastatin Calcium 20 MG 1700 11/03 1700 AC 11/03 PO 1754 Atorvastatin Calcium 20 MG DAILY 10/29 1000 DC 11/02 PO 1107 Azithromycin 500 MG Q24H 11/03 1900 AC 11/03 Sodium Chloride 250 ML IV 1754 Azithromycin 500 MG DAILY 11/02 1729 DC 11/02 Sodium Chloride 250 ML IV 1913 Bisacodyl 5 MG DAILY 11/03 1000 AC PO Calcitriol 0.25 MCG AT BEDTIME 10/29 2200 DC 11/02 PO 2215 Ceftriaxone Sodium 1,000 MG Q24H 11/03 1800 AC 11/03 IV 1754 Ceftriaxone Sodium 1,000 MG DAILY 11/02 1528 DC 11/02 IV 1806 Cholecalciferol 1,000 IU DAILY 10/29 1000 DC 11/03 PO 1006 Docusate Sodium 100 MG BID 10/29 1000 AC 11/03 PO 2146 Ferrous Sulfate 325 MG BID 10/28 2220 AC 11/03 PO 2146 Gabapentin 100 MG QPM 10/29 2200 AC 11/03 PO 2146 Heparin Sodium 5,000 UNIT Q8 10/28 2214 AC 11/04 (Porcine) SC 0620 Isosorbide 90 MG DAILY 10/29 1000 AC 11/03 Mononitrate PO 1005 Labetalol HCl 300 MG BID 10/28 2220 AC 11/03 PO 2145 Levothyroxine Sodium 0.05 MG 0600 11/04 0600 AC 11/04 PO 0620 Levothyroxine Sodium 0.05 MG DAILY 10/29 1000 DC 11/03 PO 1006 Multivitamins 1 TAB DAILY 11/01 1000 AC 11/03 PO 1006 Patient Medication 1 ED .STK-MED ONE 11/03 1353 NV Teaching ED 11/03 1354 Polyethylene Glycol 17 GM DAILY 10/31 1727 AC 11/03 PO 1009 Senna/Docusate Sodium 1 TAB BID PRN 10/31 1730 AC 11/02 PO 2215 Sevelamer Carbonate 800 MG WM 11/03 1700 AC 11/03 PO 1754 Last 24 Hrs of Lab/Jamel Results Last 24 Hrs of Labs/Mics: Laboratory Tests 11/04/16 0605: Sodium Pending, Potassium Pending, Chloride Pending, Carbon Dioxide Pending, Anion Gap Pending, BUN Pending, Creatinine Pending, BUN/Creatinine Ratio Pending , CBC w Diff Pending, WBC Pending, RBC Pending, Hgb Pending, Hct Pending, MCV Pending, MCH Pending, RDW Pending, Plt Count Pending, MPV Pending, PUBS MCHC Pending Assessment/Plan Assessment: Mr Martinez is an 86-year-old male with past medical history of CAD status post CABG, heart failure with preserved ejection fraction, hypothyroidism, CKD- stage 5 is being evaluated for worsening bilateral lower extremity edema and 8 pound weight gain despite being on furosemide likely due to worsening renal function and volume overload. Below is the problem list and plan: 1. Acute on chronic respiratory failure likely multifactorial-volume overload, acute on CKD and diastolic HF, pulmonary HTN, or pneumonia. Patient initially diuresed with high dose of furosemide, which was discontinued. Check daily weights. Patient has obstructive sleep apnea, and severe pulmonary hypertension which could be contributing to decompensation. Currently on supplemental oxygen NC. Titrate down as the patient tolerates. Chest x-ray revealed worsening pathology, likely from fluid overload, and is underlying pneumonia is not completely ruled out. CT chest revealed likely an infiltrative process, which could be likely be infectious. For now, it could be treated with ceftriaxone and azithromycin. 2. GURPREET on CKD stage 5-kidney function was worsening, and so the decision was made to hemodialyze the patient. Tunneled Asael cath placed without any complications. Hemodialysis 3 sessions so far. Janitorial Cleaner-Salvador Zepeda MD advising. In view of long-term hemodialysis, AV fistula was planned, but would be placed as an outpatient.Started on sevelamir. 3. History of CAD, hypertension- Continue Imdur, labetalol and amlodipine. Juan J Lamas MD advising. Aspirin restarted after a decision is made about placement of aVF. Placement of AVF would most likely be done as an outpatinet. 4. Normocytic anemia secondary to chronic kidney disease- likely anemia of chronic disease. Received Epogen on Monday. H&H stable at this time. 5. Chronic back pain- Continue gabapentin at a lower dose 100 mg at bedtime due to worsening kidney function. May discontinue it, if the pt continues to be lethargic. 6. Hypothyroidism- Continue levothyroxine 7. DVT prophylaxis- Subcutaneous heparin 8. Full code Problem List: 1. Pulmonary vascular congestion 2. CHF (congestive heart failure) 3. End stage renal disease 4. Volume overload 5. Obstructive sleep apnea 6. Chronic kidney disease Pain Ratin Pain Location: none Pain Goal: Pain 4 or less Pain Plan: tylenol prn Tomorrow's Labs & Rationales: cbc bep LUANA FLOR MD 11/04/16 1131: Attending MD Review Statement Attending Statement Attending MD Statement: examined this patient, discuss w/resident/PA/MEDICAL DEVICE SALES, agreed w/resident/PA/MEDICAL DEVICE SALES, reviewed EMR data (avail), discussed with nursing, discussed with case mgmt, reviewed images, amended to note Attending Assessment/Plan: Patient seen and examined at dialysis, denies any complaints. Oxygen requirement has improved. Patient remained afebrile. Vital Signs Date Time Temp Pulse Resp B/P B/P Pulse O2 O2 Flow FiO2 Mean Ox Delivery Rate 11/04 0144 98.1 72 18 136/62 94 Nasal Cannula 11/04 0000 Nasal 5.0L Cannula 11/03 2145 65 146/00 11/03 2032 93 Nasal 5.0L Cannula 11/03 1600 Nasal 8L Cannula 11/03 1600 97.9 67 18 130/62 95 Nasal 8L Cannula 11/03 1207 93 Nasal 10L Cannula on exam; aox3, nad. cv; s1,s2, rrr resp; clear with decreased bs at b/l bases. abd; soft, nt, bs+ ext; no edema. Laboratory Tests 11/04 11/04 0810 0605 Chemistry Sodium (137 - 145 mmol/L) 139 140 Potassium (3.5 - 5.1 mmol/L) 4.2 4.2 Chloride (98 - 107 mmol/L) 100 101 Carbon Dioxide (22 - 30 mmol/L) 26 26 Anion Gap (5 - 16) 13 14 BUN (9 - 20 mg/dL) 74 H 73 H Creatinine (0.7 - 1.2 mg/dL) 4.1 H 4.1 H Estimated GFR (>60 ml/min) 14 L 14 L BUN/Creatinine Ratio (7 - 25 %) 18.0 17.8 Calcium (8.4 - 10.2 mg/dL) 8.5 Hematology CBC w Diff NO MAN DIFF REQ NO MAN DIFF REQ WBC (4.8 - 10.8 /CUMM) 3.7 L 4.0 L RBC (4.70 - 6.10 /CUMM) 2.83 L 2.89 L Hgb (14.0 - 18.0 G/DL) 8.1 L 8.5 L Hct (42 - 52 %) 25.4 L 25.9 L MCV (80.0 - 94.0 FL) 89.7 89.6 MCH (27.0 - 31.0 PG) 28.6 29.4 RDW (11.5 - 14.5 %) 15.8 H 16.1 H Plt Count (130 - 400 /CUMM) 159 156 MPV (7.4 - 10.4 FL) 7.8 7.9 Gran % (42.2 - 75.2 %) 77.6 H 77.7 H Lymphocytes % (20.5 - 51.1 %) 6.5 L 6.1 L Monocytes % (1.7 - 9.3 %) 9.5 H 9.8 H Eosinophils % (0 - 5 %) 6.1 H 6.0 H Basophils % (0.0 - 2.0 %) 0.3 0.4 Absolute Granulocytes (1.4 - 6.5 /CUMM) 2.9 3.1 Absolute Lymphocytes (1.2 - 3.4 /CUMM) 0.2 L 0.2 L Absolute Monocytes (0.10 - 0.60 /CUMM) 0.4 0.4 Absolute Eosinophils (0.0 - 0.7 /CUMM) 0.2 0.2 Absolute Basophils (0.0 - 0.2 /CUMM) 0 0 PUBS MCHC (33.0 - 37.0 G/DL) 31.9 L 32.8 L A/P; 86 y/o M with pmh sig for CAD status post CABG, heart failure with preserved ejection fraction, hypothyroidism, stage V CKD, admitted with weight gain, decreased urination, acute on chronic renal failure, fluid overload and acute hypoxic respiratory failure. During the hospital course has developed pneumonia. Also has a UTI. Getting physician be chronic. Responding well to antibiotics. Urine culture growing Citrobacter which is sensitive to cefazolin, continue current antibiotics. Ultimately will need to switch her to oral Augmentin.. Continue other cardiorenal medications. DVT prophylaxis: Heparin subcutaneous. Will need rehab.
[2016-11-04 07:40] VITALS: BP 140/50
--- NOTE | 2016-11-04 07:40 | NUR ---
TO DIALYSIS VIA HOSPITAL BED. PATIENT ALERT ORIENTED X2. ASSESSMENT COMPLETED. SEE NURSING ASSESSMENT FLOWSHEETS FOR FURTHER DOCUMENTATION.
[2016-11-04 07:58] LABS: ABSOLUTE BASOPHIL COUNT 0 /CUMM (0.0-0.2); ABSOLUTE EOSINOPHIL COUNT 0.2 /CUMM (0.0-0.7); ABSOLUTE GRANULOCYTE CT 3.1 /CUMM (1.4-6.5); ABSOLUTE LYMPH COUNT 0.2 /CUMM (1.2-3.4); ABSOLUTE MONOCYTE COUNT 0.4 /CUMM (0.10-0.60); BASOPHIL % 0.4 % (0.0-2.0); GRANULOCYTE % 77.7 % (42.2-75.2); HEMATOCRIT 25.9 % (42-52); MEAN CORPUSCULAR HGB 29.4 PG (27.0-31.0); MEAN CORPUSCULAR HGB CONC 32.8 G/DL (33.0-37.0); MEAN CORPUSCULAR VOLUME 89.6 FL (80.0-94.0); MEAN PLATELET VOLUME 7.9 FL (7.4-10.4); PLATELET COUNT 156 /CUMM (130-400); RBC DISTRIBUTION WIDTH 16.1 % (11.5-14.5); RED BLOOD CELL CT 2.89 /CUMM (4.70-6.10)
--- NOTE | 2016-11-04 08:48 | PN- Pulmonary ---
ANNIKA HANNAH 11/04/16 0847: Subjective HPI/Critical Care Issues: he was seen and examined today. Patient alert, awake, oriented 3. Patient stated there is significant improvement his breathing status as he off the high flow oxygen. Patient underwent hemodialysis today. He is afebrile on 5 L nasal cannula oxygen with oxygen saturation more than 91%. Mims catheter noted patient still reporting making urine. Objective Current Medications: Current Medications Sig/Tiffanie Start time Last Medication Dose Route Stop Time Status Admin Acetaminophen 650 MG Q6P PRN 10/28 2230 AC PO Albuterol Sulfate 3 ML BID 10/29 2200 AC 11/04 INH 1300 Amlodipine Besylate 10 MG DAILY 10/29 1000 AC 11/04 PO 1259 Atorvastatin Calcium 20 MG 1700 11/03 1700 AC 11/03 PO 1754 Azithromycin 500 MG Q24H 11/03 1900 AC 11/03 Sodium Chloride 250 ML IV 1754 Bisacodyl 5 MG DAILY 11/03 1000 AC 11/04 PO 1259 Calcitriol 0.25 MCG AT BEDTIME 10/29 2200 DC 11/02 PO 2215 Ceftriaxone Sodium 1,000 MG Q24H 11/03 1800 AC 11/03 IV 1754 Cholecalciferol 1,000 IU DAILY 10/29 1000 DC 11/03 PO 1006 Docusate Sodium 100 MG BID 10/29 1000 AC 11/04 PO 1258 Epoetin Earnest 4,000 UNIT MoWeFr PRN 11/04 0800 AC IV Ferrous Sulfate 325 MG BID 10/28 2220 AC 11/04 PO 1258 Gabapentin 100 MG QPM 10/29 2200 AC 11/03 PO 2146 Heparin Sodium 5,000 UNIT Q8 10/28 2214 AC 11/04 (Porcine) SC 0620 Isosorbide 90 MG DAILY 10/29 1000 AC 11/04 Mononitrate PO 1258 Labetalol HCl 300 MG BID 10/28 2220 AC 11/04 PO 1258 Levothyroxine Sodium 0.05 MG 0600 11/04 0600 AC 05 PO 0620 Multivitamins 1 TAB DAILY 11/01 1000 AC 11/04 PO 1259 Patient Medication 1 ED .STK-MED ONE 11/03 1353 DC Teaching ED 11/03 1354 Polyethylene Glycol 17 GM DAILY 10/31 1727 AC 05 PO 1259 Senna/Docusate Sodium 1 TAB BID PRN 10/31 1730 AC 11/02 PO 2215 Sevelamer Carbonate 800 MG WM 11/03 1700 AC 11/04 PO 1259 Vital Signs & I&O Last 24 Hrs of Vitals and I&O: Vital Signs Date Time Temp Pulse Resp B/P B/P Pulse O2 O2 Flow FiO2 Mean Ox Delivery Rate 11/04 1300 92 Nasal 5.0L Cannula 11/04 1258 72 152/60 11/04 1215 98.7 72 18 152/60 93 Nasal 5.0L Cannula 11/04 0800 Nasal 5.0L Cannula 11/04 0740 98.3 84 18 140/50 11/04 0144 98.1 72 18 136/62 94 Nasal Cannula 11/04 0000 Nasal 5.0L Cannula 11/03 2145 65 146/00 11/03 203 93 Nasal 5.0L Cannula 11/03 1600 Nasal 8L Cannula 11/03 1600 97.9 67 18 130/62 95 Nasal 8L Cannula Intake & Output 11/04 1600 11/04 0800 11/04 0000 Intake Total 50 750 Output Total 350 200 Balance -300 550 Intake, IV 270 Intake, Oral 50 480 Output, Urine 350 200 Patient 218 lb 224 lb Weight Weight Standing Scale Standing Scale Measurement Method Exam General Appearance: well developed/nourished, alert, awake, comfortable Head: atraumatic Neck: normal inspection Respiratory: chest non-tender, decreased breath sounds, left-sided crackle, right-sided tunneled cath noted Cardiovascular: regular rate/rhythm Abdomen: normal bowel sounds, soft, non-tender Extremities: no edema Results Last 24 Hrs of Lab Results: Laboratory Tests 11/04/16 0810: Anion Gap 13, Estimated GFR 14 L, BUN/Creatinine Ratio 18.0, Calcium 8.5, CBC w Diff NO MAN DIFF REQ, RBC 2.83 L, MCV 89.7, MCH 28.6, RDW 15.8 H, MPV 7.8, Gran % 77.6 H, Lymphocytes % 6.5 L, Monocytes % 9.5 H, Eosinophils % 6.1 H, Basophils % 0.3, Absolute Granulocytes 2.9, Absolute Lymphocytes 0.2 L, Absolute Monocytes 0.4, Absolute Eosinophils 0.2, Absolute Basophils 0, PUBS MCHC 31.9 L 11/04/16 0605: Anion Gap 14, Estimated GFR 14 L, BUN/Creatinine Ratio 17.8, CBC w Diff NO MAN DIFF REQ, RBC 2.89 L, MCV 89.6, MCH 29.4, RDW 16.1 H, MPV 7.9, Gran % 77.7 H, Lymphocytes % 6.1 L, Monocytes % 9.8 H, Eosinophils % 6.0 H, Basophils % 0.4, Absolute Granulocytes 3.1, Absolute Lymphocytes 0.2 L, Absolute Monocytes 0.4, Absolute Eosinophils 0.2, Absolute Basophils 0, PUBS MCHC 32.8 L Impression/Plan Impression/Plan Impression/Plan: Assessment- 1. Persistent dyspnea, etiology is multifactorial 2/2- acute on chronic diastolic heart failure in conjunction with renal failure, chronic pulmonary hypertension, obesity hypoventilation, new multilobar consolidations as seen by chest CT 2. Acute on chronic diastolic heart failure 3. Acute on chronic renal failure, with initiation of dialysis since 11/01/2016 , received dialysis again yesterday on 11/02/2016 4. Chronic anemia 5. Hypertension 6. Hypothyroidism 7. Hyperlipidemia 8. Chronic pulmonary hypertension 9. Constipation, had bowel movement yesterday Recommendation: - Continueoxygen, taper oxygen requirements to maintain an oxygen saturation of greater than 92% at all time. -Continue Incentive spirometry -Continue TRC nebs as needed - Lasix is on hold per recommendations from nephrology and cardiology - Continue IV ceftriaxone and azithromycin for now - Management of other medical problems per primary team - DVT prophylaxis at all times JAY GRIFFIN MD 11/04/16 0959: Impression/Plan Impression/Plan Recommendations: Jay Mustafa M.D. have examined this patient, reviewed available EMR data, personally reviewed images, discussed with resident/PA/FILTER MACHINE OPERATOR, discussed management plan with housestaff and nursing staff, discussed managment plan all of healthcare providers, discussed management plan with patient and/or family, agreed with resident/PA/FILTER MACHINE OPERATOR. The past history and parts of the chart have been autopopulated. Patient appears to be afebrile hemodynamically stable without tachycardia. His oxygen saturation is 94 percent now on nasal cannula 5 L. Significant improvement in the FiO2 status. He is continued on the current antibiotics for community-acquired pneumonia. Fluid overload management is continued. Cardiology and nephrology are following.
[2016-11-04 08:49] LABS: MEAN PLATELET VOLUME 7.8 FL (7.4-10.4); RBC DISTRIBUTION WIDTH 15.8 % (11.5-14.5); WHITE BLOOD CELL COUNT 3.7 /CUMM (4.8-10.8)
[2016-11-04 08:52] LABS: ABSOLUTE BASOPHIL COUNT 0 /CUMM (0.0-0.2); ABSOLUTE EOSINOPHIL COUNT 0.2 /CUMM (0.0-0.7); ABSOLUTE GRANULOCYTE CT 2.9 /CUMM (1.4-6.5); ABSOLUTE LYMPH COUNT 0.2 /CUMM (1.2-3.4); ABSOLUTE MONOCYTE COUNT 0.4 /CUMM (0.10-0.60); BASOPHIL % 0.3 % (0.0-2.0); EOSINOPHIL % 6.1 % (0-5); GRANULOCYTE % 77.6 % (42.2-75.2); HEMATOCRIT 25.4 % (42-52); MEAN CORPUSCULAR HGB 28.6 PG (27.0-31.0); MEAN CORPUSCULAR HGB CONC 31.9 G/DL (33.0-37.0); MEAN CORPUSCULAR VOLUME 89.7 FL (80.0-94.0); PLATELET COUNT 159 /CUMM (130-400); RED BLOOD CELL CT 2.83 /CUMM (4.70-6.10)
--- NOTE | 2016-11-04 09:26 | NUR ---
PHYSICAL THERAPY: ATTEMTPED TO SEE PATIENT THIS A.M.; PATIENT OFF THE FLOOR FOR DIALYSIS; WILL F/U APPROPRIATE FOR TREATMENT.
--- NOTE | 2016-11-04 10:21 | PN- Nephrology ---
Assessment/Plan Assessment: 1. 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 Coronary artery disease status post CABG 5 with congestive heart failure 3. Hypertension, hyperlipidemia 4. Obstructive sleep apnea 5. Anemia 6. Hyperphosphatemia Suggestion: 1. Hemodialysis #3 day in progress with 2 L ultrafiltration goal over 3 hours 2. Hold cholecalciferol and calcitriol until serum phosphorus has normalized 3. Will continue Epogen with his dialysis 4. Await outpatient dialysis slot; patient and his have decided that he receive his dialysis care at [facility] 5. Permanent vascular access as outpatient (Dr. Dill) Subjective Subjective: Continues to feel better. Specifically he denies shortness of breath, chest pain, nausea, vomiting. Seen with hemodialysis #3 which is currently in progress. Plan to liter ultrafiltration over 3 hours. We will increase time to 3.5 hours starting next week. He and his have decided that he should receive his outpatient dialysis care at [facility]. Outpatient slot pending. Objective Vital Signs and I&Os Vital Signs Date Time Temp Pulse Resp B/P B/P Pulse O2 O2 Flow FiO2 Mean Ox Delivery Rate 11/04 0144 98.1 72 18 136/62 94 Nasal Cannula 11/04 0000 Nasal 5.0L Cannula 11/03 2145 65 146/00 11/03 2032 93 Nasal 5.0L Cannula 11/03 1600 Nasal 8L Cannula 11/03 1600 97.9 67 18 130/62 95 Nasal 8L Cannula 11/03 1207 93 Nasal 10L Cannula Intake & Output 11/04 1600 0505 0400 / 1600 11/03 0400 11/02 1600 11/02 0400 Intake Total 50 750 400 630 240 120 Output Total 350 200 550 250 900 300 Balance -300 550 -150 380 -660 -180 Intake, IV 270 270 Intake, Oral 50 480 400 360 240 120 Number 2 Bowel Movements Output, Urine 350 200 550 250 900 300 Patient 224 lb 227 lb 226 lb 231 lb Weight Weight Standing Scale Briana Lift Briana Lift Briana Lift Measurement Method Physical Exam: General: Well-developed, elderly obese white male on nasal oxygen in NAD Skin: No rash or jaundice HEENT: Conjunctivae pale, sclerae anicteric, mucous membranes moist Neck: Without masses or thyromegaly, no supraclavicular or cervical adenopathy; right IJ catheter in place Chest: Clear with few scattered rales Heart: Regular rate and rhythm without S3 or rub Abdomen: Obese, soft and nontender without palpable masses or organomegaly Extremities: Without cyanosis or edema Neuro: No focal findings, no asterixis or myoclonus Current Medications: Current Medications Sig/Tiffanie Start time Last Medication Dose Route Stop Time Status Admin Acetaminophen 650 MG Q6P PRN 10/28 2230 AC PO Albuterol Sulfate 3 ML BID 10/29 2200 AC 11/03 INH 2031 Amlodipine Besylate 10 MG DAILY 10/29 1000 AC 11/03 PO 1006 Atorvastatin Calcium 20 MG 1700 11/03 1700 AC 11/03 PO 1754 Atorvastatin Calcium 20 MG DAILY 10/29 1000 DC 11/02 PO 1107 Azithromycin 500 MG Q24H 11/03 1900 AC 11/03 Sodium Chloride 250 ML IV 1754 Azithromycin 500 MG DAILY 11/02 1729 DC 11/02 Sodium Chloride 250 ML IV 1913 Bisacodyl 5 MG DAILY 11/03 1000 AC PO Calcitriol 0.25 MCG AT BEDTIME 10/29 2200 DC 11/02 PO 2215 Ceftriaxone Sodium 1,000 MG Q24H 11/03 1800 AC 11/03 IV 1754 Ceftriaxone Sodium 1,000 MG DAILY 11/02 1528 DC 11/02 IV 1806 Cholecalciferol 1,000 IU DAILY 10/29 1000 DC 11/03 PO 1006 Docusate Sodium 100 MG BID 10/29 1000 AC 11/03 PO 2146 Epoetin Earnest 4,000 UNIT MoWeFr PRN 11/04 0800 AC IV Ferrous Sulfate 325 MG BID 10/28 2220 AC 11/03 PO 2146 Gabapentin 100 MG QPM 10/29 2200 AC 11/03 PO 2146 Heparin Sodium 5,000 UNIT Q8 10/28 2214 AC 11/04 (Porcine) SC 0620 Isosorbide 90 MG DAILY 10/29 1000 AC 11/03 Mononitrate PO 1005 Labetalol HCl 300 MG BID 10/28 2220 AC 11/03 PO 2145 Levothyroxine Sodium 0.05 MG 0600 11/04 0600 AC 11/04 PO 0620 Levothyroxine Sodium 0.05 MG DAILY 10/29 1000 DC 11/03 PO 1006 Multivitamins 1 TAB DAILY 11/01 1000 AC 11/03 PO 1006 Patient Medication 1 ED .STK-MED ONE 11/03 1353 DC Teaching ED 11/03 1354 Polyethylene Glycol 17 GM DAILY 10/31 1727 AC 11/03 PO 1009 Senna/Docusate Sodium 1 TAB BID PRN 10/31 1730 AC 11/02 PO 2215 Sevelamer Carbonate 800 MG WM 11/03 1700 AC 11/03 PO 1754 Results Pertinent Lab Results: Laboratory Tests 11/04 11/04 0810 0605 Chemistry Sodium (137 - 145 mmol/L) 139 140 Potassium (3.5 - 5.1 mmol/L) 4.2 4.2 Chloride (98 - 107 mmol/L) 100 101 Carbon Dioxide (22 - 30 mmol/L) 26 26 Anion Gap (5 - 16) 13 14 BUN (9 - 20 mg/dL) 74 H 73 H Creatinine (0.7 - 1.2 mg/dL) 4.1 H 4.1 H Estimated GFR (>60 ml/min) 14 L 14 L BUN/Creatinine Ratio (7 - 25 %) 18.0 17.8 Calcium (8.4 - 10.2 mg/dL) 8.5 Hematology CBC w Diff NO MAN DIFF REQ NO MAN DIFF REQ WBC (4.8 - 10.8 /CUMM) 3.7 L 4.0 L RBC (4.70 - 6.10 /CUMM) 2.83 L 2.89 L Hgb (14.0 - 18.0 G/DL) 8.1 L 8.5 L Hct (42 - 52 %) 25.4 L 25.9 L MCV (80.0 - 94.0 FL) 89.7 89.6 MCH (27.0 - 31.0 PG) 28.6 29.4 RDW (11.5 - 14.5 %) 15.8 H 16.1 H Plt Count (130 - 400 /CUMM) 159 156 MPV (7.4 - 10.4 FL) 7.8 7.9 Gran % (42.2 - 75.2 %) 77.6 H 77.7 H Lymphocytes % (20.5 - 51.1 %) 6.5 L 6.1 L Monocytes % (1.7 - 9.3 %) 9.5 H 9.8 H Eosinophils % (0 - 5 %) 6.1 H 6.0 H Basophils % (0.0 - 2.0 %) 0.3 0.4 Absolute Granulocytes (1.4 - 6.5 /CUMM) 2.9 3.1 Absolute Lymphocytes (1.2 - 3.4 /CUMM) 0.2 L 0.2 L Absolute Monocytes (0.10 - 0.60 /CUMM) 0.4 0.4 Absolute Eosinophils (0.0 - 0.7 /CUMM) 0.2 0.2 Absolute Basophils (0.0 - 0.2 /CUMM) 0 0 PUBS MCHC (33.0 - 37.0 G/DL) 31.9 L 32.8 L /04 05/03 0700 2000 Blood Gas pH (7.35 - 7.45 PH) 7.35 pCO2 (35 - 45 TORR) 49 H pO2 (80 - 100 TORR) 90 HCO3 (21 - 28 MEQ/L) 27 ABG O2 Sat (Measured) (>96.0 %) 95.0 L P-50 (Temp Corrected) Y Carboxyhemoglobin (1.5 - 5.0 %) 0.4 L O2 Concentration % 50% Temperature (97.0 - 100.0 FARH) 98.7 O2 Delivery Method NC Chemistry Sodium (137 - 145 mmol/L) 143 Potassium (3.5 - 5.1 mmol/L) 3.9 Chloride (98 - 107 mmol/L) 103 Carbon Dioxide (22 - 30 mmol/L) 25 Anion Gap (5 - 16) 14 BUN (9 - 20 mg/dL) 65 H Creatinine (0.7 - 1.2 mg/dL) 3.7 H Estimated GFR (>60 ml/min) 16 L BUN/Creatinine Ratio (7 - 25 %) 17.6 Hematology CBC w Diff NO MAN DIFF REQ WBC (4.8 - 10.8 /CUMM) 3.4 L RBC (4.70 - 6.10 /CUMM) 2.76 L Hgb (14.0 - 18.0 G/DL) 8.0 L Hct (42 - 52 %) 24.7 L MCV (80.0 - 94.0 FL) 89.7 MCH (27.0 - 31.0 PG) 29.0 RDW (11.5 - 14.5 %) 16.2 H Plt Count (130 - 400 /CUMM) 140 MPV (7.4 - 10.4 FL) 7.9 Gran % (42.2 - 75.2 %) 80.3 H Lymphocytes % (20.5 - 51.1 %) 7.7 L Monocytes % (1.7 - 9.3 %) 9.8 H Eosinophils % (0 - 5 %) 1.9 Basophils % (0.0 - 2.0 %) 0.3 Absolute Granulocytes (1.4 - 6.5 /CUMM) 2.7 Absolute Lymphocytes (1.2 - 3.4 /CUMM) 0.3 L Absolute Monocytes (0.10 - 0.60 /CUMM) 0.3 Absolute Eosinophils (0.0 - 0.7 /CUMM) 0.1 Absolute Basophils (0.0 - 0.2 /CUMM) 0 PUBS MCHC (33.0 - 37.0 G/DL) 32.3 L Miscellaneous Phlebotomy Draw Site RIGHT BRACHIAL 11/02 11/02 1110 0655 Chemistry Sodium (137 - 145 mmol/L) 142 Potassium (3.5 - 5.1 mmol/L) 4.4 Chloride (98 - 107 mmol/L) 101 Carbon Dioxide (22 - 30 mmol/L) 23 Anion Gap (5 - 16) 18 H BUN (9 - 20 mg/dL) 99 H Creatinine (0.7 - 1.2 mg/dL) 5.3 *H Estimated GFR (>60 ml/min) 10 L BUN/Creatinine Ratio (7 - 25 %) 18.7 Calcium (8.4 - 10.2 mg/dL) 8.4 Phosphorus (2.5 - 4.5 mg/dL) 6.7 H Magnesium (1.6 - 2.3 mg/dL) 2.4 H Hematology CBC w Diff NO MAN DIFF REQ WBC (4.8 - 10.8 /CUMM) 5.8 RBC (4.70 - 6.10 /CUMM) 3.00 L Hgb (14.0 - 18.0 G/DL) 8.7 L Hct (42 - 52 %) 26.9 L MCV (80.0 - 94.0 FL) 89.6 MCH (27.0 - 31.0 PG) 29.1 RDW (11.5 - 14.5 %) 16.4 H Plt Count (130 - 400 /CUMM) 150 MPV (7.4 - 10.4 FL) 7.7 Gran % (42.2 - 75.2 %) 87.0 H Lymphocytes % (20.5 - 51.1 %) 3.5 L Monocytes % (1.7 - 9.3 %) 9.1 Eosinophils % (0 - 5 %) 0.4 Basophils % (0.0 - 2.0 %) 0 L Absolute Granulocytes (1.4 - 6.5 /CUMM) 5.0 Absolute Lymphocytes (1.2 - 3.4 /CUMM) 0.2 L Absolute Monocytes (0.10 - 0.60 /CUMM) 0.5 Absolute Eosinophils (0.0 - 0.7 /CUMM) 0 Absolute Basophils (0.0 - 0.2 /CUMM) 0 PUBS MCHC (33.0 - 37.0 G/DL) 32.5 L Urines Urinalysis LIGHT H Urine Color (YEL,AMB,STR) YEL Urine Clarity (CLEAR) HAZY H Urine pH (5.0 - 8.0) 6.0 Ur Specific [place] (1.001 - 1.035) 1.025 Urine Protein (NEG,<30 MG/DL) 100 H Urine Ketones (NEG) NEG Urine Nitrite (NEG) NEG Urine Bilirubin (NEG) NEG Urine Urobilinogen (0.1 - 1.0 EU/dl) 0.2 Ur Leukocyte Esterase (NEG) MOD H Ur Microscopic SEDIMENT EXAMINED Urine RBC (0 - 5 /HPF) 25-50 H Urine WBC (0 - 2 /HPF) > 75 H Ur Epithelial Cells (NONE,FEW) FEW Urine Bacteria (NEG/NONE) MANY H Urine Mucus (FEW,NONE) FEW Urine Hemoglobin (NEG) LARGE H Urine Glucose (N MG/DL) NEG 11/01 1215 Chemistry Sodium (137 - 145 mmol/L) 142 Potassium (3.5 - 5.1 mmol/L) 4.4 Chloride (98 - 107 mmol/L) 100 Carbon Dioxide (22 - 30 mmol/L) 26 Anion Gap (5 - 16) 16 BUN (9 - 20 mg/dL) 90 H Creatinine (0.7 - 1.2 mg/dL) 5.2 *H Estimated GFR (>60 ml/min) 11 L BUN/Creatinine Ratio (7 - 25 %) 17.3 Phosphorus (2.5 - 4.5 mg/dL) 7.1 H Magnesium (1.6 - 2.3 mg/dL) 2.4 H Serology Hep Bs Antigen (NONREACTIVE) NONREACTIVE Hep Bs Antibody (NONREACTIVE) NONREACTIVE
[2016-11-04 12:15] VITALS: BP 152/60
--- NOTE | 2016-11-04 12:15 | NUR ---
BACK FROM DIALYSIS. ALERT ORIENTED X2. VSS. OOB W/ASSIST X1 TO SCALE THEN TO RECLINER. 1:1 SITTER MAINTAINED. CALL DAVID IN REACH.
--- NOTE | 2016-11-04 13:19 | Patient Discharge Instructions ---
Discharge Instructions General Discharge Information You were seen/treated for: - Heart failure - Chronic kidney Special Instructions: PLEASE FOLLOW UP WITH WITH DR ANGULO (EQUITIES TRADER) YOU HAVE YOUR DIALYSIS SESSIONS ON MONDAY, ,AND MONDAY PLEASE FOLLOW UP WITH DR ZARATE (DIVISION CHIEF) IN 1 WEEK Diet Recommended Diet: Renal Dialysis Acute Coronary Syndrome Inclusion Criteria At DC or during hospital stay patient has or had the following: ACS DIAGNOSIS No Discharge Core Measures Meds if any: Prescribed or Continued at Discharge Meds if any: NOT Prescribed or Continued at Discharge Congestive Heart Failure Inclusion Criteria At DC or during hospital stay patient has or had the following: CHF DIAGNOSIS No Discharge Core Measures Meds if any: Prescribed or Continued at Discharge Meds if any: NOT Prescribed or Continued at Discharge Cerebrovascular accident Inclusion Criteria At DC or during hospital stay patient has or had the following: CVA/TIA Diagnosis No Discharge Core Measures Meds if any: Prescribed or Continued at Discharge Meds if any: NOT Prescribed or Continued at Discharge Venous thromboembolism Inclusion Criteria VTE Diagnosis No VTE Type NONE VTE Confirmed by (Test) NONE Discharge Core Measures - Per Current guidelines, there needs to be overlap - treatment for the first 5 days of Warfarin therapy. - If discharged on Warfarin prior to 5 days of - overlap therapy, the patient will need to be - assessed for post discharge needs including - *Post discharge parental anticoagulation - *Warfarin and/or parental anticoagulation education - *Follow up date to check INR post discharge At least 5 days overlap therapy as Inpatient No Meds if any: Prescribed or Continued at Discharge Note: Overlap Therapy is Warfarin and Anticoagulant Meds if any: NOT Prescribed or Continued at Discharge
--- NOTE | 2016-11-04 14:22 | PN- Cardiology ---
Subjective Subjective: Patient seen while in dialysis earlier today. Offers no complaints. Oxygen requirements are decreasing. Objective Vital Signs and I&Os Vital Signs Date Time Temp Pulse Resp B/P B/P Pulse O2 O2 Flow FiO2 Mean Ox Delivery Rate 11/04 1300 92 Nasal 5.0L Cannula 11/04 1258 72 152/60 05/ 1215 98.7 72 18 152/60 93 Nasal 5.0L Cannula 11/04 0800 Nasal 5.0L Cannula 11/04 0740 98.3 84 18 140/50 05 0144 98.1 72 18 136/62 94 Nasal Cannula 11/04 0000 Nasal 5.0L Cannula 11/03 2145 65 146/00 11/03 2032 93 Nasal 5.0L Cannula 11/03 1600 Nasal 8L Cannula 11/03 1600 97.9 67 18 130/62 95 Nasal 8L Cannula Intake & Output 11/04 1600 11/04 0800 / 0000 11/03 1600 11/03 0800 11/03 0000 Intake Total 50 750 400 630 Output Total 350 200 300 250 250 Balance -300 550 100 -250 380 Intake, IV 270 270 Intake, Oral 50 480 400 360 Number 2 Bowel Movements Output, Urine 350 200 300 250 250 Patient 218 lb 224 lb 227 lb 226 lb Weight Weight Standing Scale Standing Scale Briana Lift Briana Lift Measurement Method Physical Exam: General: No apparent distress. More alert. Eyes: No obvious scleral icterus. HEENT: No jugular venous distention or abnormal jugular venous pulsations. Cardiovascular: Normal intensity S1/S2. 2/6 COCO. Regular. Respiratory: Mildly decreased air entry bilaterally Abdomen: Soft, nontender with no guarding or rebound tenderness. Musculoskeletal: No clubbing or cyanosis noted, no edema Skin: Warm Current Medications: Current Medications Sig/Tiffanie Start time Last Medication Dose Route Stop Time Status Admin Acetaminophen 650 MG Q6P PRN 10/28 2230 AC PO Albuterol Sulfate 3 ML BID 10/29 2200 AC 11/04 INH 1300 Amlodipine Besylate 10 MG DAILY 10/29 1000 AC 11/04 PO 1259 Atorvastatin Calcium 20 MG 1700 11/03 1700 AC 05/ PO 1754 Azithromycin 500 MG Q24H 11/03 1900 AC 11/03 Sodium Chloride 250 ML IV 1754 Bisacodyl 5 MG DAILY 11/03 1000 AC 05 PO 1259 Ceftriaxone Sodium 1,000 MG Q24H 11/03 1800 AC 11/03 IV 1754 Docusate Sodium 100 MG BID 10/29 1000 AC 11/04 PO 1258 Epoetin Earnest 4,000 UNIT MoWeFr PRN 11/04 0800 AC IV Ferrous Sulfate 325 MG BID 10/28 2220 AC 11/04 PO 1258 Gabapentin 100 MG QPM 10/29 2200 AC 11/03 PO 2146 Heparin Sodium 5,000 UNIT Q8 10/28 2214 AC 11/04 (Porcine) SC 0620 Isosorbide 90 MG DAILY 10/29 1000 AC 11/04 Mononitrate PO 1258 Labetalol HCl 300 MG BID 10/28 2220 AC 11/04 PO 1258 Levothyroxine Sodium 0.05 MG 0600 11/04 0600 AC 11/04 PO 0620 Multivitamins 1 TAB DAILY 11/01 1000 AC 11/04 PO 1259 Polyethylene Glycol 17 GM DAILY 10/31 1727 AC 11/04 PO 1259 Senna/Docusate Sodium 1 TAB BID PRN 10/31 1730 AC 11/02 PO 2215 Sevelamer Carbonate 800 MG WM 11/03 1700 AC 11/04 PO 1259 Results Last 48 Hrs of Labs/Mics: Laboratory Tests 11/04/16 0810: Anion Gap 13, Estimated GFR 14 L, BUN/Creatinine Ratio 18.0, Calcium 8.5, CBC w Diff NO MAN DIFF REQ, RBC 2.83 L, MCV 89.7, MCH 28.6, RDW 15.8 H, MPV 7.8, Gran % 77.6 H, Lymphocytes % 6.5 L, Monocytes % 9.5 H, Eosinophils % 6.1 H, Basophils % 0.3, Absolute Granulocytes 2.9, Absolute Lymphocytes 0.2 L, Absolute Monocytes 0.4, Absolute Eosinophils 0.2, Absolute Basophils 0, PUBS MCHC 31.9 L 11/04/16 0605: Anion Gap 14, Estimated GFR 14 L, BUN/Creatinine Ratio 17.8, CBC w Diff NO MAN DIFF REQ, RBC 2.89 L, MCV 89.6, MCH 29.4, RDW 16.1 H, MPV 7.9, Gran % 77.7 H, Lymphocytes % 6.1 L, Monocytes % 9.8 H, Eosinophils % 6.0 H, Basophils % 0.4, Absolute Granulocytes 3.1, Absolute Lymphocytes 0.2 L, Absolute Monocytes 0.4, Absolute Eosinophils 0.2, Absolute Basophils 0, PUBS MCHC 32.8 L 11/03/16 0700: Anion Gap 14, Estimated GFR 16 L, BUN/Creatinine Ratio 17.6, CBC w Diff NO MAN DIFF REQ, RBC 2.76 L, MCV 89.7, MCH 29.0, RDW 16.2 H, MPV 7.9, Gran % 80.3 H, Lymphocytes % 7.7 L, Monocytes % 9.8 H, Eosinophils % 1.9, Basophils % 0.3, Absolute Granulocytes 2.7, Absolute Lymphocytes 0.3 L, Absolute Monocytes 0.3, Absolute Eosinophils 0.1, Absolute Basophils 0, PUBS MCHC 32.3 L 11/02/161999: pH 7.35, pCO2 49 H, pO2 90, HCO3 27, ABG O2 Sat (Measured) 95.0 L, P-50 (Temp Corrected) Y, Carboxyhemoglobin 0.4 L, O2 Concentration % 50%, Temperature 98.7 , O2 Delivery Method NC, Phlebotomy Draw Site RIGHT BRACHIAL Microbiology 11/02 1734 URINE ROUT: Urine Culture - COMP CITROBACTER KOSERI 11/02 1734 URINE ROUT: Legionella Antigen - COMP 11/02 1734 URINE ROUT: Streptococcus pneumoniae Antigen (M - COMP Recent Imaging Studies: Telemetry tracings personally reviewed shows sinus rhythm with a 6 beat SVT run Assessment/Plan Assessment/Plan 1. Chronic diastolic heart failure 2. Coronary disease by history status post coronary bypass surgery 3. End-stage renal disease with plan for dialysis 4. Chronic anemia 5. Hypertension 6. Hyperlipidemia 7. Obstructive sleep apnea/hypoventilation 8. Mild to moderate mitral/aortic stenosis by recent echocardiogram 9. History of significant carotid stenosis being managed medically by vascular 10. Hypoxia/respiratory failure/PNA The patient appears to be clinically improving with decreasing oxygen requirements. He is now on intravenous antibiotics for pneumonia as evidenced on the CT scan. Continues to undergo fluid removal with dialysis. Outpatient dialysis position is being arranged. Given the patient's history of coronary artery disease and carotid stenosis recommend starting on low-dose daily aspirin therapy in the absence of any contraindications (It does not appear he will be undergoing vascular access as an inpatient.) Gonzalo Lamas MD [facility] Continue telemetry? No
[2016-11-04 15:58] VITALS: BP 128/72
--- NOTE | 2016-11-05 08:45 | PN- Housestaff ---
[place] [place]45: Subjective Follow-up For: CHF exacerbation CKD stage 5 Tele-Events Since Last Visit: Accelerated junctional rhythm First degree heart block HR 68-70 Subjective: No acute events overnight. Patient seen and examined this morning. He feels good and has no complaints. He denies shortness of breath, chest pain, palpitations, nausea or vomiting. Review of Systems Constitutional: Reports: see HPI. Objective Last 24 Hrs of Vital Signs/I&O Vital Signs Date Time Temp Pulse Resp B/P B/P Pulse O2 O2 Flow FiO2 Mean Ox Delivery Rate 11/05 1548 97.8 65 18 110/60 94 Nasal 4.0L Cannula 11/05 1025 71 130/56 / 1024 71 130/56 / 1023 71 130/56 / 0859 92 Nasal 3.0L Cannula 11/05 0847 98.5 85 20 118/70 87 Nasal 2.0L Cannula 11/05 0800 88 Nasal 2.5L Cannula / 0103 98.7 69 16 91 Nasal 4.0L Cannula 11/05 0000 Nasal 5.0L Cannula 11/04 2044 95 Nasal 5.0L Cannula 11/04 2036 66 120/60 Intake & Output 11/05 1600 05/06 0800 05/ 0000 Intake Total 500 60 750 Output Total 150 250 200 Balance 350 -190 550 Intake, IV 10 270 Intake, Oral 500 50 480 Number 1 Bowel Movements Output, Urine 150 250 200 Patient 99.79 kg Weight Weight Standing Scale Measurement Method Physical Exam General Appearance: Alert, Oriented X3, No Acute Distress Skin: No Rashes HEENT: Atraumatic, Mucous Membr. moist/pink Cardiovascular: Regular Rate, Normal S1, Normal S2 Lungs: Few Crackles Scattered Throughout Bilateral Lung Pineda Abdomen: Soft, No Tenderness, Positive Bowel Sounds Extremities: No Clubbing, No Cyanosis, No Edema Current Medications: Current Medications Sig/Tiffanie Start time Last Medication Dose Route Stop Time Status Admin Acetaminophen 650 MG Q6P PRN 10/28 2230 AC PO Albuterol Sulfate 3 ML BID 10/29 2200 AC 11/05 INH 0853 Amlodipine Besylate 10 MG DAILY 10/29 1000 AC 05/ PO 1024 Aspirin 81 MG DAILY 11/05 1000 AC 05/ PO 1023 Atorvastatin Calcium 20 MG 1700 11/03 1700 AC 05 PO 1733 Azithromycin 500 MG Q24H 11/03 1900 AC 11/05 Sodium Chloride 250 ML IV 1736 Bisacodyl 5 MG DAILY 11/03 1000 AC 11/05 PO 1024 Ceftriaxone Sodium 1,000 MG Q24H 11/03 1800 AC 11/05 IV 1733 Docusate Sodium 100 MG BID 10/29 1000 AC 11/05 PO 1024 Epoetin Earnest 4,000 UNIT MoWeFr PRN 11/04 0800 AC IV Ferrous Sulfate 325 MG BID 10/28 2220 AC 11/05 PO 1024 Gabapentin 100 MG QPM 10/29 2200 AC 11/04 PO 2036 Heparin Sodium 5,000 UNIT Q8 10/28 2214 AC 11/05 (Porcine) SC 1352 Isosorbide 90 MG DAILY 10/29 1000 AC 11/05 Mononitrate PO 1023 Labetalol HCl 300 MG BID 10/28 2220 AC 11/05 PO 1025 Levothyroxine Sodium 0.05 MG 0600 11/04 0600 AC 11/05 PO 0629 Multivitamins 1 TAB DAILY 11/01 1000 AC 11/05 PO 1024 Polyethylene Glycol 17 GM DAILY 10/31 1727 AC 11/05 PO 1022 Senna/Docusate Sodium 1 TAB BID PRN 10/31 1730 AC 11/02 PO 2215 Sevelamer Carbonate 800 MG WM 11/03 1700 AC 11/05 PO 1733 Last 24 Hrs of Lab/Jamel Results Last 24 Hrs of Labs/Mics: Laboratory Tests 11/05/16 0754: Anion Gap 12, Estimated GFR 21 L, BUN/Creatinine Ratio 14.1, CBC w Diff NO MAN DIFF REQ, RBC 2.89 L, MCV 89.7, MCH 29.2, RDW 16.3 H, MPV 7.9, Gran % 71.4, Lymphocytes % 10.2 L, Monocytes % 11.5 H, Eosinophils % 6.4 H, Basophils % 0.5, Absolute Granulocytes 2.7, Absolute Lymphocytes 0.4 L, Absolute Monocytes 0.4, Absolute Eosinophils 0.2, Absolute Basophils 0, PUBS MCHC 32.6 L Assessment/Plan Assessment: Mr Martinez is an 86-year-old male with past medical history of CAD status post CABG, heart failure with preserved ejection fraction, hypothyroidism, CKD- stage 5 is being evaluated for worsening bilateral lower extremity edema and 8 pound weight gain despite being on furosemide likely due to worsening renal function and volume overload. Discharge tomorrow pending availability of dialysis slot if patient remains hemodynamically stable with stable respiratory status. Below is the problem list and plan: 1. Acute on chronic respiratory failure likely multifactorial-volume overload, acute on CKD and diastolic HF, pulmonary HTN, or pneumonia. Patient initially diuresed with high dose of furosemide, which was discontinued. Check daily weights. Patient has obstructive sleep apnea, and severe pulmonary hypertension which could be contributing to decompensation. Currently on supplemental oxygen NC. Titrate down as the patient tolerates. Chest x-ray revealed worsening pathology, likely from fluid overload, and is underlying pneumonia is not completely ruled out. CT chest revealed likely an infiltrative process, which could be likely be infectious. For now, it could be treated with ceftriaxone and azithromycin. Sitter discontinued as patient is more cooperative with his oxygen. 2. GURPREET on CKD stage 5-kidney function was worsening, and so the decision was made to hemodialyze the patient. Tunneled Tal cath placed without any complications. Hemodialysis 3 sessions so far. Retail Sales Merchandiser-Salvador Zepeda MD advising. In view of long-term hemodialysis, AV fistula was planned, but would be placed as an outpatient.Started on sevelamir. 3. History of CAD, hypertension- Continue Imdur, labetalol and amlodipine. Juan J Lamas MD advising. Aspirin restarted after a decision is made about placement of aVF. Placement of AVF would most likely be done as an outpatinet. 4. Normocytic anemia secondary to chronic kidney disease- likely anemia of chronic disease. Received Epogen on Monday. H&H stable at this time. 5. Chronic back pain- Continue gabapentin at a lower dose 100 mg at bedtime due to worsening kidney function. May discontinue it, if the pt continues to be lethargic. 6. Hypothyroidism- Continue levothyroxine 7. DVT prophylaxis- Subcutaneous heparin 8. Full code Problem List: 1. Pulmonary vascular congestion 2. CHF (congestive heart failure) 3. End stage renal disease 4. Volume overload 5. Obstructive sleep apnea 6. Chronic kidney disease Pain Ratin Pain Location: N/A Pain Goal: Remain pain free Pain Plan: Tylenol 650 mg PO Q6H PRN Tomorrow's Labs & Rationales: CBC to monitor H/H and BMP to monitor lytes and kidney function in the setting of ESRD on HD Discharge Plan Anticipated Discharge (Day): tomorrow KRYSTYNA NJ MD 11/05/16 1508: Attending MD Review Statement Attending Statement Attending MD Statement: examined this patient, discuss w/resident/PA/INSTRUMENT MECHANICS SUPERVISOR, agreed w/resident/PA/INSTRUMENT MECHANICS SUPERVISOR, reviewed EMR data (avail), discussed with nursing, discussed with case mgmt, amended to note Attending Assessment/Plan: Patient seen and examined. Lying comfortably in bed not in acute distress. No issues overnight reported by nursing staff. Sitter is in place due to patient frequently taken off oxygen. Patient was only complaints today. Denies chest pain. Denies shortness of breath. On examination heart sounds are regular with 2/6 murmur. Lungs are clear bilaterally. Cardiology and pulmonology follow-up appreciated. If patient remains hemodynamically stable today with no worsening respiratory status anticipate discharge tomorrow.
[2016-11-05 08:47] VITALS: BP 118/70
--- NOTE | 2016-11-05 09:04 | PN- Pulmonary ---
Subjective HPI/Critical Care Issues: She feels comfortable without shortness of breath he has a sitter because of frequent removal of oxygen Objective Current Medications: Current Medications Sig/Tiffanie Start time Last Medication Dose Route Stop Time Status Admin Acetaminophen 650 MG Q6P PRN 10/28 2230 AC PO Albuterol Sulfate 3 ML BID 10/29 2200 AC 11/05 INH 0853 Amlodipine Besylate 10 MG DAILY 10/29 1000 AC 11/04 PO 1259 Aspirin 81 MG DAILY 11/05 1000 AC PO Atorvastatin Calcium 20 MG 1700 11/03 1700 AC 11/04 PO 1818 Azithromycin 500 MG Q24H 11/03 1900 AC 11/04 Sodium Chloride 250 ML IV 1818 Bisacodyl 5 MG DAILY 11/03 1000 AC 11/04 PO 1259 Ceftriaxone Sodium 1,000 MG Q24H 11/03 1800 AC 11/04 IV 1818 Docusate Sodium 100 MG BID 10/29 1000 AC 11/04 PO 2036 Epoetin Earnest 4,000 UNIT MoWeFr PRN 11/04 0800 AC IV Ferrous Sulfate 325 MG BID 10/28 2220 AC 11/04 PO 2036 Gabapentin 100 MG QPM 10/29 2200 AC 11/04 PO 2036 Heparin Sodium 5,000 UNIT Q8 10/28 2214 AC 11/05 (Porcine) SC 0629 Isosorbide 90 MG DAILY 10/29 1000 AC 11/04 Mononitrate PO 1258 Labetalol HCl 300 MG BID 10/28 2220 AC 11/04 PO 2036 Levothyroxine Sodium 0.05 MG 0600 11/04 0600 AC 11/05 PO 0629 Multivitamins 1 TAB DAILY 11/01 1000 AC 11/04 PO 1259 Polyethylene Glycol 17 GM DAILY 10/31 1727 AC 11/04 PO 1259 Senna/Docusate Sodium 1 TAB BID PRN 10/31 1730 AC 11/02 PO 2215 Sevelamer Carbonate 800 MG WM 11/03 1700 AC 11/05 PO 0833 Vital Signs & I&O Last 24 Hrs of Vitals and I&O: Vital Signs Date Time Temp Pulse Resp B/P B/P Pulse O2 O2 Flow FiO2 Mean Ox Delivery Rate 11/05 0859 92 Nasal 3.0L Cannula 11/05 08 98.5 85 20 118/70 87 Nasal 2.0L Cannula 11/05 010 98.7 69 16 91 Nasal 4.0L Cannula 11/05 0000 Nasal 5.0L Cannula 11/044 95 Nasal 5.0L Cannula 11/04 2036 66 120/60 11/04 1730 Nasal 5.0L Cannula 11/04 1600 Nasal 5.0L Cannula 11/04 1558 98.1 76 18 128/72 97 Nasal 5.0L Cannula 11/04 1300 92 Nasal 5.0L Cannula 11/04 1258 72 152/60 11/04 1215 98.7 72 18 152/60 93 Nasal 5.0L Cannula Intake & Output 11/05 1600 11/05 0800 11/05 0000 Intake Total 200 60 750 Output Total 250 200 Balance 200 -190 550 Intake, IV 10 270 Intake, Oral 200 50 480 Output, Urine 250 200 Patient 220 lb Weight Weight Standing Scale Measurement Method Since saturation improved on 3 L 92% exam of his chest shows occasional rhonchi decreased breath sounds at the bases cardiac exam shows regular S1 and S2 without murmurs Impression/Plan Impression/Plan Impression/Plan: 86-year-old multiple medical problems including renal failure pneumonia or congestive heart failure has slowly improving respiratory status Recommendations: Complete course of antibiotics Taper FiO2 his saturations allow attempt to mobilize out of bed aggressive pulmonary toilet
[2016-11-05 09:12] LABS: ABSOLUTE BASOPHIL COUNT 0 /CUMM (0.0-0.2); ABSOLUTE EOSINOPHIL COUNT 0.2 /CUMM (0.0-0.7); ABSOLUTE GRANULOCYTE CT 2.7 /CUMM (1.4-6.5); ABSOLUTE LYMPH COUNT 0.4 /CUMM (1.2-3.4); ABSOLUTE MONOCYTE COUNT 0.4 /CUMM (0.10-0.60); BASOPHIL % 0.5 % (0.0-2.0); EOSINOPHIL % 6.4 % (0-5); GRANULOCYTE % 71.4 % (42.2-75.2); HEMATOCRIT 25.9 % (42-52); MEAN CORPUSCULAR HGB 29.2 PG (27.0-31.0); MEAN CORPUSCULAR HGB CONC 32.6 G/DL (33.0-37.0); MEAN CORPUSCULAR VOLUME 89.7 FL (80.0-94.0); MEAN PLATELET VOLUME 7.9 FL (7.4-10.4); PLATELET COUNT 163 /CUMM (130-400); RBC DISTRIBUTION WIDTH 16.3 % (11.5-14.5); RED BLOOD CELL CT 2.89 /CUMM (4.70-6.10); WHITE BLOOD CELL COUNT 3.8 /CUMM (4.8-10.8)
--- NOTE | 2016-11-05 12:31 | NUR ---
PT attempted to treat patient however pt refusing 2* to fatigue. Pt educated on importance of exercise and walking to improve healing/health however pt cont. to state that he will walk later if he feels up to it. Nursing informed of refusal and stated she will get him up and walk him later.
--- NOTE | 2016-11-05 13:51 | PN- Cardiology ---
Subjective Subjective: Feeling well. No chest pain. No palpitations. Shortness of breath improving. No nausea or vomiting. No diaphoresis. The patient received dialysis yesterday. Objective Vital Signs and I&Os Vital Signs Date Time Temp Pulse Resp B/P B/P Pulse O2 O2 Flow FiO2 Mean Ox Delivery Rate 11/05 1025 71 130/56 05/06 1024 71 130/56 / 1023 71 130/56 / 0859 92 Nasal 3.0L Cannula 11/05 0847 98.5 85 20 118/70 87 Nasal 2.0L Cannula 11/05 0800 88 Nasal 2.5L Cannula 11/05 0103 98.7 69 16 91 Nasal 4.0L Cannula 11/05 0000 Nasal 5.0L Cannula 11/05 2043 95 Nasal 5.0L Cannula 11/04 203 66 120/60 11/04 1730 Nasal 5.0L Cannula 11/04 1600 Nasal 5.0L Cannula 11/04 1558 98.1 76 18 128/72 97 Nasal 5.0L Cannula Intake & Output 11/05 1600 11/05 0800 11/05 0000 11/04 1600 11/04 0000 Intake Total 200 60 750 360 50 750 Output Total 250 200 250 350 200 Balance 200 -190 550 110 -300 550 Intake, IV 10 270 270 Intake, Oral 200 50 480 360 50 480 Output, Urine 250 200 250 350 200 Patient 220 lb 218 lb 224 lb Weight Weight Standing Scale Standing Scale Standing Scale Measurement Method Physical Exam: Gen: NAD HEENT: normal Lungs: Few scattered rales, normal resp. effort Heart: RRR, S1, S2, 2/6 systolic murmur Abdomen: Soft, nontender, no masses Extremities: No clubbing, cyanosis, or edema. Neuro: Alert and oriented x 3, cranial nerves intact Current Medications: Current Medications Sig/Tiffanie Start time Last Medication Dose Route Stop Time Status Admin Acetaminophen 650 MG Q6P PRN 10/280 AC PO Albuterol Sulfate 3 ML BID 10/29 2199 AC 11/05 INH 0853 Amlodipine Besylate 10 MG DAILY 10/29 1000 AC 05/ PO 1024 Aspirin 81 MG DAILY 11/05 1000 AC 05/ PO 1023 Atorvastatin Calcium 20 MG 1700 11/03 1700 AC 0505 PO 1818 Azithromycin 500 MG Q24H 11/03 1900 AC 05 Sodium Chloride 250 ML IV 1818 Bisacodyl 5 MG DAILY 11/03 1000 AC 11/05 PO 1024 Ceftriaxone Sodium 1,000 MG Q24H 11/03 1800 AC 11/04 IV 1818 Docusate Sodium 100 MG BID 10/29 1000 AC 11/05 PO 1024 Epoetin Earnest 4,000 UNIT MoWeFr PRN 11/04 0800 AC IV Ferrous Sulfate 325 MG BID 10/28 2220 AC 11/05 PO 1024 Gabapentin 100 MG QPM 10/29 2200 AC 11/04 PO 2036 Heparin Sodium 5,000 UNIT Q8 10/28 2214 AC 11/05 (Porcine) SC 0629 Isosorbide 90 MG DAILY 10/29 1000 AC 11/05 Mononitrate PO 1023 Labetalol HCl 300 MG BID 10/28 2220 AC 11/05 PO 1025 Levothyroxine Sodium 0.05 MG 0600 11/04 0600 AC 11/05 PO 0629 Multivitamins 1 TAB DAILY 11/01 1000 AC 11/05 PO 1024 Polyethylene Glycol 17 GM DAILY 10/31 1727 AC 11/05 PO 1022 Senna/Docusate Sodium 1 TAB BID PRN 10/31 1730 AC 11/02 PO 2215 Sevelamer Carbonate 800 MG WM 11/03 1700 AC 11/05 PO 0833 Results Last 48 Hrs of Labs/Mics: Laboratory Tests 11/05/16 0754: Anion Gap 12, Estimated GFR 21 L, BUN/Creatinine Ratio 14.1, CBC w Diff NO MAN DIFF REQ, RBC 2.89 L, MCV 89.7, MCH 29.2, RDW 16.3 H, MPV 7.9, Gran % 71.4, Lymphocytes % 10.2 L, Monocytes % 11.5 H, Eosinophils % 6.4 H, Basophils % 0.5, Absolute Granulocytes 2.7, Absolute Lymphocytes 0.4 L, Absolute Monocytes 0.4, Absolute Eosinophils 0.2, Absolute Basophils 0, PUBS MCHC 32.6 L 11/04/16 0810: Anion Gap 13, Estimated GFR 14 L, BUN/Creatinine Ratio 18.0, Calcium 8.5, CBC w Diff NO MAN DIFF REQ, RBC 2.83 L, MCV 89.7, MCH 28.6, RDW 15.8 H, MPV 7.8, Gran % 77.6 H, Lymphocytes % 6.5 L, Monocytes % 9.5 H, Eosinophils % 6.1 H, Basophils % 0.3, Absolute Granulocytes 2.9, Absolute Lymphocytes 0.2 L, Absolute Monocytes 0.4, Absolute Eosinophils 0.2, Absolute Basophils 0, PUBS MCHC 31.9 L 11/04/16 0605: Anion Gap 14, Estimated GFR 14 L, BUN/Creatinine Ratio 17.8, CBC w Diff NO MAN DIFF REQ, RBC 2.89 L, MCV 89.6, MCH 29.4, RDW 16.1 H, MPV 7.9, Gran % 77.7 H, Lymphocytes % 6.1 L, Monocytes % 9.8 H, Eosinophils % 6.0 H, Basophils % 0.4, Absolute Granulocytes 3.1, Absolute Lymphocytes 0.2 L, Absolute Monocytes 0.4, Absolute Eosinophils 0.2, Absolute Basophils 0, PUBS MCHC 32.8 L Assessment/Plan Assessment/Plan Assessment: 1. Chronic diastolic heart failure, with acute exacerbation 2. CAD, status post CABG 3. End-stage renal disease, on dialysis 4. Hypertension 5. 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 * Dialysis as per nephrology Continue telemetry? No
[2016-11-05 15:48] VITALS: BP 110/60
[2016-11-05 23:00] VITALS: BP 128/68
[2016-11-06 08:30] VITALS: BP 150/56
--- NOTE | 2016-11-06 08:41 | PN- Housestaff ---
NIHARIKA BAIN,ROSA MARIA 11/06/16 0841: Subjective Follow-up For: CHF exacerbation CKD stage 5 Complaints: pain over shingles site (torso) Tele-Events Since Last Visit: Occasional junctional rhythm, heart rate ranging from 64-66. Subjective: Followed up and examined the patient today. His only complaint being neuropathic pain from his shingles, no other issues, telemetry recording note is as above. Review of Systems Constitutional: Reports: see HPI. Objective Last 24 Hrs of Vital Signs/I&O Vital Signs Date Time Temp Pulse Resp B/P B/P Pulse O2 O2 Flow FiO2 Mean Ox Delivery Rate 11/06 1825 94 Nasal 3.0L Cannula 11/06 1600 Nasal 3.0L Cannula 11/06 1545 97.6 61 20 132/66 93 Nasal 3.0L Cannula 11/06 1010 65 150/56 /07 1009 65 150/56 / 1009 65 150/56 / 0945 94 Nasal 3.0L Cannula 11/06 0830 97.7 65 20 150/56 96 Nasal 4.0L Cannula 11/06 0800 96 Nasal 4.0L Cannula 11/06 0000 Nasal 4.0L Cannula 11/05 2300 97.7 66 20 128/68 96 Nasal 4.0L Cannula 11/05 2232 66 138/60 Intake & Output 11/06 1600 11/06 0800 11/06 0000 Intake Total 600 130 620 Output Total 400 400 Balance 200 -270 620 Intake, IV 10 270 Intake, Oral 600 120 350 Number 2 Bowel Movements Output, Urine 400 400 Patient 102.512 kg Weight Weight Standing Scale Measurement Method Physical Exam General Appearance: Alert, Oriented X3, Cooperative, No Acute Distress Other Physical Findings: Skin: No Rashes HEENT: Atraumatic, Mucous Membr. moist/pink Cardiovascular: Regular Rate, Normal S1, Normal S2 Lungs: Few Crackles Scattered Throughout Bilateral Lung Pineda Abdomen: Soft, No Tenderness, Positive Bowel Sounds Extremities: No Clubbing, No Cyanosis, No Edema Current Medications: Current Medications Sig/Tiffanie Start time Last Medication Dose Route Stop Time Status Admin Acetaminophen 650 MG .STK-MED ONE 11/06 0100 DC PO 11/06 010 Acetaminophen 650 MG Q6P PRN 10/280 AC 11/06 PO 2035 Albuterol Sulfate 3 ML BID 10/29 2199 AC 11/06 INH 1825 Amlodipine Besylate 10 MG DAILY 10/29 1000 AC 11/06 PO 1009 Aspirin 81 MG DAILY 11/05 1000 AC 11/06 PO 1009 Atorvastatin Calcium 20 MG 1700 11/03 1700 AC 11/06 PO 1652 Azithromycin 500 MG Q24H 11/03 1900 AC 11/06 Sodium Chloride 250 ML IV 1653 Bisacodyl 5 MG DAILY 11/03 1000 AC 11/06 PO 1009 Ceftriaxone Sodium 1,000 MG Q24H 11/03 1800 AC 11/06 IV 1652 Docusate Sodium 100 MG BID 10/29 1000 AC 11/06 PO 1009 Epoetin Earnest 4,000 UNIT MoWeFr PRN 11/04 0800 AC IV Ferrous Sulfate 325 MG BID 10/28 2220 AC 11/06 PO 1009 Gabapentin 100 MG QPM 10/29 2200 AC 11/05 PO 2230 Heparin Sodium 5,000 UNIT Q8 10/28 2214 AC 11/06 (Porcine) SC 0532 Isosorbide 90 MG DAILY 10/29 1000 AC 11/06 Mononitrate PO 1009 Labetalol HCl 300 MG BID 10/28 2220 AC 11/06 PO 1010 Levothyroxine Sodium 0.05 MG 0600 11/04 0600 AC 11/06 PO 0532 Multivitamins 1 TAB DAILY 11/01 1000 AC 11/06 PO 1009 Polyethylene Glycol 17 GM DAILY 10/31 1727 AC 11/06 PO 1008 Potassium Chloride 40 MEQ ONCE ONE 11/06 1200 DC 11/06 PO 11/06 1201 1315 Senna/Docusate Sodium 1 TAB BID PRN 10/31 1730 AC 11/02 PO 2215 Sevelamer Carbonate 800 MG WM 11/03 1700 AC 11/06 PO 1652 Last 24 Hrs of Lab/Jamel Results Last 24 Hrs of Labs/Mics: Laboratory Tests 11/06/16 0710: Anion Gap 12, Estimated GFR 17 L, BUN/Creatinine Ratio 12.6, CBC w Diff NO MAN DIFF REQ, RBC 3.02 L, MCV 89.8, MCH 28.8, RDW 15.9 H, MPV 7.9, Gran % 67.5, Lymphocytes % 11.7 L, Monocytes % 13.3 H, Eosinophils % 7.0 H, Basophils % 0.5, Absolute Granulocytes 2.5, Absolute Lymphocytes 0.4 L, Absolute Monocytes 0.5, Absolute Eosinophils 0.3, Absolute Basophils 0, PUBS MCHC 32.0 L Assessment/Plan Assessment: Mr Martinez is an 86-year-old male with past medical history of CAD status post CABG, heart failure with preserved ejection fraction, hypothyroidism, CKD- stage 5 is being evaluated for worsening bilateral lower extremity edema and 8 pound weight gain despite being on furosemide likely due to worsening renal function and volume overload. Discharge tomorrow pending availability of dialysis slot if patient remains hemodynamically stable with stable respiratory status. Below is the problem list and plan: 1. Acute on chronic respiratory failure likely multifactorial-volume overload, acute on CKD and diastolic HF, pulmonary HTN, or pneumonia. Patient initially diuresed with high dose of furosemide, which was discontinued. Check daily weights. Patient has obstructive sleep apnea, and severe pulmonary hypertension which could be contributing to decompensation. Currently on supplemental oxygen [place]. Titrate down as the patient tolerates. Chest x-ray revealed worsening pathology, likely from fluid overload, and is underlying pneumonia is not completely ruled out. CT chest revealed likely an infiltrative process, which could be likely be infectious. For now, it could be treated with ceftriaxone and azithromycin. Sitter discontinued onn Monday as patient is more cooperative with his oxygen. 2. GURPREET on CKD stage 5-kidney function was worsening, and so the decision was made to hemodialyze the patient. Tunneled Tal cath placed without any complications. Hemodialysis 3 sessions so far. [employer]-Salvador Zepeda MD advising. In view of long-term hemodialysis, AV fistula was planned, but would be placed as an outpatient. Started on sevelamir. 3. History of CAD, hypertension- Continue Imdur, labetalol and amlodipine. Juan J Lamas MD advising. Aspirin restarted after a decision is made about placement of aVF. Placement of AVF would most likely be done as an outpatinet. 4. Normocytic anemia secondary to chronic kidney disease- likely anemia of chronic disease. Received Epogen on Monday. H&H stable at this time. 5. Chronic back pain- His complain of neuropathic pain is probably related to shingles, continue gabapentin at a lower dose 100 mg at bedtime due to worsening kidney function. May discontinue it, if the pt continues to be lethargic. 6. Hypothyroidism- Continue levothyroxine 7. DVT prophylaxis- Subcutaneous heparin 8. Full code Problem List: 1. Pulmonary vascular congestion 2. CHF (congestive heart failure) 3. End stage renal disease 4. Volume overload 5. Obstructive sleep apnea 6. Chronic kidney disease Pain Ratin Pain Location: back Pain Goal: Pain 4 or less Pain Plan: prn, and gabapentin Tomorrow's Labs & Rationales: BEP, Mg, phos to replete KRYSTYNA NJ MD 11/06/16 1103: Attending MD Review Statement Attending Statement Attending Assessment/Plan: Patient seen and examined. Resting comfortably and not in any acute distress. No acute events overnight on telemetry. Patient denies chest pain or shortness of breath. Denies palpitations. Reports fair appetite. On examination he has faintly bilaterally and lungs are clear to auscultation. Abdomen is soft and nontender. He is maintaining saturation 94% on 3 L of oxygen. Recommendations: -Discontinue telemetry per cardiology recommendations. -Follow-up with case management regarding outpatient hemodialysis loss. -Once outpatient dialysis has been secured patient may be discharged home. Patient and have decided on [facility] dialysis in [place] per nephrology service. -He will follow-up as an outpatient for his vascular access placement.
--- NOTE | 2016-11-06 09:06 | PN- Pulmonary ---
Subjective HPI/Critical Care Issues: Oxygen saturations improved Objective Current Medications: Current Medications Sig/Tiffanie Start time Last Medication Dose Route Stop Time Status Admin Acetaminophen 650 MG .STK-MED ONE 11/06 0100 DC PO 11/06 010 Acetaminophen 650 MG Q6P PRN 10/28 2230 AC 11/06 PO 0059 Albuterol Sulfate 3 ML BID 10/29 2200 AC 11/05 INH 1958 Amlodipine Besylate 10 MG DAILY 10/29 1000 AC 11/05 PO 1024 Aspirin 81 MG DAILY 11/05 1000 AC 11/05 PO 1023 Atorvastatin Calcium 20 MG 1700 11/03 1700 AC 11/05 PO 1733 Azithromycin 500 MG Q24H 11/03 1900 AC 11/05 Sodium Chloride 250 ML IV 1736 Bisacodyl 5 MG DAILY 11/03 1000 AC 11/05 PO 1024 Ceftriaxone Sodium 1,000 MG Q24H 11/03 1800 AC 11/05 IV 1733 Docusate Sodium 100 MG BID 10/29 1000 AC 11/05 PO 2230 Epoetin Earnest 4,000 UNIT MoWeFr PRN 11/04 0800 AC IV Ferrous Sulfate 325 MG BID 10/28 2220 AC 11/05 PO 2230 Gabapentin 100 MG QPM 10/29 2200 AC 11/05 PO 2230 Heparin Sodium 5,000 UNIT Q8 10/28 2214 AC 11/06 (Porcine) SC 0532 Isosorbide 90 MG DAILY 10/29 1000 AC 11/05 Mononitrate PO 1023 Labetalol HCl 300 MG BID 10/28 2220 AC 11/05 PO 2232 Levothyroxine Sodium 0.05 MG 0600 11/04 0600 AC 11/06 PO 0532 Multivitamins 1 TAB DAILY 11/01 1000 AC 11/05 PO 1024 Polyethylene Glycol 17 GM DAILY 10/31 1727 AC 11/05 PO 1022 Senna/Docusate Sodium 1 TAB BID PRN 10/31 1730 AC 11/02 PO 2215 Sevelamer Carbonate 800 MG WM 11/03 1700 AC 11/05 PO 1733 Vital Signs & I&O Last 24 Hrs of Vitals and I&O: Vital Signs Date Time Temp Pulse Resp B/P B/P Pulse O2 O2 Flow FiO2 Mean Ox Delivery Rate 11/06 829 97.7 65 20 150/56 96 Nasal 4.0L Cannula 11/06 0000 Nasal 4.0L Cannula 11/05 2300 97.7 66 20 128/68 96 Nasal 4.0L Cannula 11/05 2232 66 138/60 11/05 2000 94 Nasal 4.0L Cannula 11/05 1600 92 Nasal 4.0L Cannula 11/05 1548 97.8 65 18 110/60 94 Nasal 4.0L Cannula 11/05 1025 71 130/56 11/05 1024 71 130/56 11/05 1023 71 130/56 Intake & Output 11/06 1600 11/06 0800 11/06 0000 Intake Total 130 620 Output Total 400 Balance -270 620 Intake, IV 10 270 Intake, Oral 120 350 Number 2 Bowel Movements Output, Urine 400 Patient 226 lb Weight Weight Standing Scale Measurement Method Oxygen 4 L 96% exam of his chest shows diminished breath sounds cardiac exam shows regular S1 and S2 without murmurs Impression/Plan Impression/Plan Impression/Plan: 86-year-old multiple medical problems including renal failure pneumonia congestive heart failure has slowly improving respiratory status Recommendations: Complete course of antibiotics Taper FiO2 his saturations have improved attempt to mobilize out of bed aggressive pulmonary toilet
[2016-11-06 09:27] LABS: ABSOLUTE BASOPHIL COUNT 0 /CUMM (0.0-0.2); ABSOLUTE EOSINOPHIL COUNT 0.3 /CUMM (0.0-0.7); ABSOLUTE GRANULOCYTE CT 2.5 /CUMM (1.4-6.5); ABSOLUTE LYMPH COUNT 0.4 /CUMM (1.2-3.4); ABSOLUTE MONOCYTE COUNT 0.5 /CUMM (0.10-0.60); BASOPHIL % 0.5 % (0.0-2.0); GRANULOCYTE % 67.5 % (42.2-75.2); HEMATOCRIT 27.1 % (42-52); MEAN CORPUSCULAR HGB 28.8 PG (27.0-31.0); MEAN CORPUSCULAR VOLUME 89.8 FL (80.0-94.0); MEAN PLATELET VOLUME 7.9 FL (7.4-10.4); PLATELET COUNT 174 /CUMM (130-400); RBC DISTRIBUTION WIDTH 15.9 % (11.5-14.5); RED BLOOD CELL CT 3.02 /CUMM (4.70-6.10); WHITE BLOOD CELL COUNT 3.7 /CUMM (4.8-10.8)
[2016-11-06 15:45] VITALS: BP 132/66
[2016-11-07 00:29] VITALS: BP 138/50
[2016-11-07 07:30] VITALS: BP 150/60
--- NOTE | 2016-11-07 08:10 | PN- Housestaff ---
Subjective Follow-up For: CKD Acute hypoxic respiratory failure Complaints: no complaints Tele-Events Since Last Visit: off telemetry. Subjective: Pt comfortable this am. No complaints. Pt feels better compared to last week. Vitals stable. Remained afebrile. Await approval and arrangment of dialysis slot. Review of Systems Constitutional: Reports: see HPI. Objective Last 24 Hrs of Vital Signs/I&O Vital Signs Date Time Temp Pulse Resp B/P B/P Pulse O2 O2 Flow FiO2 Mean Ox Delivery Rate 11/07 0029 97.7 66 20 138/50 96 05/08 0000 Nasal 3.0L Cannula 11/06 2146 158/74 11/06 1825 94 Nasal 3.0L Cannula 11/06 1600 Nasal 3.0L Cannula 11/06 1545 97.6 61 20 132/66 93 Nasal 3.0L Cannula 11/06 1010 65 150/56 /07 1009 65 150/56 / 1009 65 150/56 / 0945 94 Nasal 3.0L Cannula 11/06 0830 97.7 65 20 150/56 96 Nasal 4.0L Cannula Intake & Output 11/07 1600 11/07 0800 05 0000 Intake Total Output Total 675 200 Balance -675 -200 Output, Urine 675 200 Patient 225 lb Weight Physical Exam General Appearance: No Acute Distress Other Physical Findings: General Exam: lethargic, AAOx3, No acute distress, Skin: No rashes, no breakdown HEENT: PERRLA, EOMI Neck: Supple, No JVD No cervical lymphadenopathy CVS: Reg Rate, Normal S1,S2, No MGR Resp: Decreased air entry b/l, ronchi/rales b/l Abdomen: Soft, No tenderness, Normal Bowel Sounds Neuro: Normal Speech, Strength 5/5 b/l x 4 extremities, Sensation intact, CN III -XII NL, Reflexes 2+ Extremities: No cyanosis, pedal edema, asael cath in place w/o any erythema or tenderness. Current Medications: Current Medications Sig/Tiffanie Start time Last Medication Dose Route Stop Time Status Admin Acetaminophen 650 MG .STK-MED ONE 11/07 2035 DC PO 11/06 2036 Acetaminophen 650 MG Q6P PRN 10/28 2229 AC 11/06 PO 2035 Albuterol Sulfate 3 ML BID 10/29 2199 AC 11/06 INH 1825 Amlodipine Besylate 10 MG DAILY 10/29 1000 AC 11/06 PO 1009 Aspirin 81 MG DAILY 11/05 1000 AC 11/06 PO 1009 Atorvastatin Calcium 20 MG 1700 11/03 1700 AC 11/06 PO 1652 Azithromycin 500 MG Q24H 11/03 1900 AC 11/06 Sodium Chloride 250 ML IV 1653 Bisacodyl 5 MG DAILY 11/03 1000 AC 11/06 PO 1009 Ceftriaxone Sodium 1,000 MG Q24H 11/03 1800 AC 11/06 IV 1652 Docusate Sodium 100 MG BID 10/29 1000 AC 11/06 PO 2146 Epoetin Earnest 4,000 UNIT MoWeFr PRN 11/04 0800 AC IV Ferrous Sulfate 325 MG BID 10/28 2220 AC 11/06 PO 2147 Gabapentin 100 MG QPM 10/29 2200 AC 11/06 PO 2146 Heparin Sodium 5,000 UNIT Q8 10/28 2214 AC 11/07 (Porcine) SC 0627 Isosorbide 90 MG DAILY 10/29 1000 AC 11/06 Mononitrate PO 1009 Labetalol HCl 300 MG BID 10/28 2220 AC 11/06 PO 2146 Levothyroxine Sodium 0.05 MG 0600 11/04 0600 AC 11/07 PO 0627 Multivitamins 1 TAB DAILY 11/01 1000 AC 11/06 PO 1009 Polyethylene Glycol 17 GM DAILY 10/31 1727 AC 11/06 PO 1008 Potassium Chloride 40 MEQ ONCE ONE 11/06 1200 DC 11/06 PO 11/06 1201 1315 Senna/Docusate Sodium 1 TAB BID PRN 10/31 1730 AC 11/02 PO 2215 Sevelamer Carbonate 800 MG WM 11/03 1700 AC 11/06 PO 1652 Last 24 Hrs of Lab/Jamel Results Last 24 Hrs of Labs/Mics: Laboratory Tests 11/07/16 0700: Pdi-L-Pahutdckifa Pept Cancelled, CBC w Diff Cancelled, WBC Cancelled, RBC Cancelled, Hgb Cancelled, Hct Cancelled, MCV Cancelled, MCH Cancelled, RDW Cancelled, Plt Count Cancelled, MPV Cancelled, PUBS MCHC Cancelled 11/07/16 0626: Sodium Pending, Potassium Pending, Chloride Pending, Carbon Dioxide Pending, Anion Gap Pending, BUN Pending, Creatinine Pending, BUN/Creatinine Ratio Pending , Phosphorus Pending, Magnesium Pending Assessment/Plan Assessment: Mr Martinez is an 86-year-old male with past medical history of CAD status post CABG, heart failure with preserved ejection fraction, hypothyroidism, CKD- stage 5 is being evaluated for worsening bilateral lower extremity edema and 8 pound weight gain despite being on furosemide likely due to worsening renal function and volume overload. Discharge pending availability of dialysis slot if patient remains hemodynamically stable with stable respiratory status. Below is the problem list and plan: 1. Acute on chronic respiratory failure likely multifactorial-volume overload, acute on CKD and diastolic HF, pulmonary HTN, or pneumonia. Patient initially diuresed with high dose of furosemide, which was discontinued. Check daily weights. Patient has obstructive sleep apnea, and severe pulmonary hypertension which could be contributing to decompensation. Currently on supplemental oxygen [place]. Titrate down as the patient tolerates. Chest x-ray revealed worsening pathology, likely from fluid overload, and is underlying pneumonia is not completely ruled out. CT chest revealed likely an infiltrative process, which could be likely be infectious. For now, it could be treated with ceftriaxone and azithromycin. 2. GURPREET on CKD stage 5-kidney function was worsening, and so the decision was made to hemodialyze the patient. Tunneled Asael cath placed without any complications. Hemodialysis 3 sessions so far. [employer]-Salvador Zepeda MD advising. In view of long-term hemodialysis, AV fistula was planned, but would be placed as an outpatient. Started on sevelamir. 3. History of CAD, hypertension- Continue Imdur, labetalol and amlodipine. Juan J Lamas MD advising. Aspirin restarted after a decision is made about placement of aVF. Placement of AVF would most likely be done as an outpatinet. 4. Normocytic anemia secondary to chronic kidney disease- likely anemia of chronic disease. Received Epogen on Monday. H&H stable at this time. 5. Chronic back pain- His complain of neuropathic pain is probably related to shingles, continue gabapentin at a lower dose 100 mg at bedtime due to worsening kidney function. May discontinue it, if the pt continues to be lethargic. 6. Hypothyroidism- Continue levothyroxine 7. DVT prophylaxis- Subcutaneous heparin 8. Full code Problem List: 1. Pulmonary vascular congestion 2. Pleural effusion 3. CHF (congestive heart failure) 4. Syncope and collapse 5. End stage renal disease Pain Ratin Pain Location: none Pain Goal: Pain 4 or less Pain Plan: tylenol Tomorrow's Labs & Rationales: cbc bep
[2016-11-07 09:00] LABS: ABSOLUTE BASOPHIL COUNT 0 /CUMM (0.0-0.2); ABSOLUTE EOSINOPHIL COUNT 0.3 /CUMM (0.0-0.7); ABSOLUTE GRANULOCYTE CT 3.1 /CUMM (1.4-6.5); ABSOLUTE LYMPH COUNT 0.5 /CUMM (1.2-3.4); ABSOLUTE MONOCYTE COUNT 0.4 /CUMM (0.10-0.60); BASOPHIL % 0.3 % (0.0-2.0); EOSINOPHIL % 5.9 % (0-5); GRANULOCYTE % 72.4 % (42.2-75.2); HEMATOCRIT 27.1 % (42-52); MEAN CORPUSCULAR HGB CONC 32.4 G/DL (33.0-37.0); MEAN CORPUSCULAR VOLUME 89.5 FL (80.0-94.0); MEAN PLATELET VOLUME 7.5 FL (7.4-10.4); PLATELET COUNT 198 /CUMM (130-400); RBC DISTRIBUTION WIDTH 16.2 % (11.5-14.5); RED BLOOD CELL CT 3.02 /CUMM (4.70-6.10); WHITE BLOOD CELL COUNT 4.3 /CUMM (4.8-10.8)
--- NOTE | 2016-11-07 09:34 | PN- Pulmonary ---
ANNIKA HANNAH 11/07/16 0933: Subjective HPI/Critical Care Issues: Patient was seen and examined today. Patient alert, awake, oriented. Patient is status post hemodialysis session today. He stated that he is feeling better regarding his overall status. He denies any fever, chills, chest pain. Patient awaiting approval and arrangement of outpatient dialysis spot. Objective Current Medications: Current Medications Sig/Tiffanie Start time Last Medication Dose Route Stop Time Status Admin Acetaminophen 650 MG .STK-MED ONE 11/07 2035 DC PO 11/06 2036 Acetaminophen 650 MG Q6P PRN 10/28 2230 AC 11/06 PO 203 Albuterol Sulfate 3 ML BID 10/29 2200 AC 11/06 INH 1825 Amlodipine Besylate 10 MG DAILY 10/29 1000 AC 11/06 PO 1009 Aspirin 81 MG DAILY 11/05 1000 AC 11/06 PO 1009 Atorvastatin Calcium 20 MG 1700 11/03 1700 AC 11/06 PO 1652 Azithromycin 500 MG Q24H 11/03 1900 AC 11/06 Sodium Chloride 250 ML IV 1653 Bisacodyl 5 MG DAILY 11/03 1000 AC 11/06 PO 1009 Ceftriaxone Sodium 1,000 MG Q24H / 1800 AC 11/06 IV 1652 Docusate Sodium 100 MG BID 10/29 1000 AC 11/06 PO 2146 Epoetin Earnest 4,000 UNIT MoWeFr PRN 11/04 0800 AC IV Ferrous Sulfate 325 MG BID 10/28 2220 AC 11/06 PO 2147 Gabapentin 100 MG QPM 10/29 2200 AC 11/06 PO 2146 Heparin Sodium 5,000 UNIT Q8 10/28 2214 AC 11/07 (Porcine) SC 0627 Isosorbide 90 MG DAILY 10/29 1000 AC 11/06 Mononitrate PO 1009 Labetalol HCl 300 MG BID 10/28 2220 AC 11/06 PO 2146 Levothyroxine Sodium 0.05 MG 0600 11/04 0600 AC 11/07 PO 0627 Multivitamins 1 TAB DAILY 11/01 1000 AC 11/06 PO 1009 Polyethylene Glycol 17 GM DAILY 10/31 1727 AC 11/06 PO 1008 Potassium Chloride 40 MEQ ONCE ONE 11/06 1200 DC 11/06 PO 11/06 1201 1315 Senna/Docusate Sodium 1 TAB BID PRN 10/31 1730 AC 11/02 PO 2215 Sevelamer Carbonate 800 MG WM 11/03 1700 AC 11/06 PO 1652 Vital Signs & I&O Last 24 Hrs of Vitals and I&O: Vital Signs Date Time Temp Pulse Resp B/P B/P Pulse O2 O2 Flow FiO2 Mean Ox Delivery Rate 11/07 729 97.7 71 20 150/60 94 Room Air 11/07 0029 97.7 66 20 138/50 96 11/07 0000 Nasal 3.0L Cannula 11/06 2146 158/74 11/06 1825 94 Nasal 3.0L Cannula 11/06 1600 Nasal 3.0L Cannula 11/06 1545 97.6 61 20 132/66 93 Nasal 3.0L Cannula Intake & Output 11/07 0800 11/07 0000 Intake Total Output Total 675 200 Balance -675 -200 Output, Urine 675 200 Patient 225 lb Weight Exam General Appearance: well developed/nourished, alert, awake, comfortable Head: atraumatic Neck: supple Respiratory: chest non-tender, no respiratory distress, decreased breath sounds Cardiovascular: regular rate/rhythm Abdomen: normal bowel sounds, soft, non-tender Extremities: no edema Results Last 24 Hrs of Lab Results: Laboratory Tests 11/07/16 0730: Anion Gap 11, Estimated GFR 17 L, BUN/Creatinine Ratio 13.5, Glucose 87, Calcium 8.1 L, Vev-M-Rvhevbwnlzj Pept 70922 H, PTH Intact Pending, CBC w Diff NO MAN DIFF REQ, RBC 3.02 L, MCV 89.5, MCH 29.0, RDW 16.2 H, MPV 7.5, Gran % 72.4, Lymphocytes % 11.3 L, Monocytes % 10.1 H, Eosinophils % 5.9 H, Basophils % 0.3, Absolute Granulocytes 3.1, Absolute Lymphocytes 0.5 L, Absolute Monocytes 0.4, Absolute Eosinophils 0.3, Absolute Basophils 0, PUBS MCHC 32.4 L 11/07/16 0700: Imi-G-Zqnhqfrelyi Pept Cancelled, CBC w Diff Cancelled, WBC Cancelled, RBC Cancelled, Hgb Cancelled, Hct Cancelled, MCV Cancelled, MCH Cancelled, RDW Cancelled, Plt Count Cancelled, MPV Cancelled, PUBS MCHC Cancelled 11/07/16 0626: Anion Gap 11, Estimated GFR 17 L, BUN/Creatinine Ratio 13.8, Phosphorus 3.8, Magnesium 2.3 Impression/Plan Impression/Plan Impression/Plan: Assessment- 1. Persistent dyspnea, etiology is multifactorial 2/2- acute on chronic diastolic heart failure in conjunction with renal failure, chronic pulmonary hypertension, obesity hypoventilation, new multilobar consolidations as seen by chest CT 2. Acute on chronic diastolic heart failure 3. Acute on chronic renal failure, with initiation of dialysis since 11/01/2016 , received dialysis again yesterday on 11/02/2016 4. Chronic anemia 5. Hypertension 6. Hypothyroidism 7. Hyperlipidemia 8. Chronic pulmonary hypertension 9. Constipation, had bowel movement yesterday Recommendation: - Continue oxygen, taper oxygen requirements to maintain an oxygen saturation of greater than 92% at all time. -Continue Incentive spirometry -Continue TRC nebs as needed - Lasix is on hold per recommendations from nephrology and cardiology - Continue IV ceftriaxone and azithromycin for now, that can be changed to by mouth prior to discharge to complete total course of 10 days. - Management of other medical problems per primary team - DVT prophylaxis at all times JAY GRIFFIN MD 11/07/16 1107: Impression/Plan Impression/Plan Recommendations: Jay Mustafa M.D. have examined this patient, reviewed available EMR data, personally reviewed images, discussed with resident/PA/MARKETING INFORMATION ANALYST, discussed management plan with housestaff and nursing staff, discussed managment plan all of healthcare providers, discussed management plan with patient and/or family, agreed with resident/PA/MARKETING INFORMATION ANALYST. The past history and parts of the chart have been autopopulated. undergoing hd doing better overall DC PLANNING plan for outpt vascular access cont to remove fluid cont o2 supplementation declines pap therapy
--- NOTE | 2016-11-07 10:42 | PN- Cardiology ---
Subjective Subjective: Patient is resting comfortably this morning. Undergoing dialysis. Laying flat on nasal cannula oxygen without complaints. Objective Vital Signs and I&Os Vital Signs Date Time Temp Pulse Resp B/P B/P Pulse O2 O2 Flow FiO2 Mean Ox Delivery Rate 11/07 0630 97.7 71 20 150/60 94 Room Air 11/07 0029 97.7 66 20 138/50 96 05/ 0000 Nasal 3.0L Cannula 11/06 2146 158/74 11/06 1825 94 Nasal 3.0L Cannula 11/06 1600 Nasal 3.0L Cannula 11/06 1545 97.6 61 20 132/66 93 Nasal 3.0L Cannula Intake & Output 11/07 0800 11/07 0000 11/06 1600 11/06 0811/06 0000 Intake Total 600 130 620 Output Total 675 200 400 400 Balance -675 -200 200 -270 620 Intake, IV 10 270 Intake, Oral 600 120 350 Number 2 Bowel Movements Output, Urine 675 200 400 400 Patient 225 lb 226 lb Weight Weight Standing Scale Measurement Method Physical Exam: General: No apparent distress. On nasal cannula. Eyes: No obvious scleral icterus. HEENT: No jugular venous distention or abnormal jugular venous pulsations. Cardiovascular: Normal intensity S1/S2. 3/6 COCO. Regular. Respiratory: Mildly decreased air entry bilaterally Abdomen: Soft, nontender with no guarding or rebound tenderness. Musculoskeletal: No clubbing or cyanosis noted, no edema Skin: Warm Current Medications: Current Medications Sig/Tiffanie Start time Last Medication Dose Route Stop Time Status Admin Acetaminophen 650 MG .STK-MED ONE 11/07 2035 DC PO 11/06 2036 Acetaminophen 650 MG Q6P PRN 10/28 2230 AC 11/06 PO 203 Albuterol Sulfate 3 ML BID 10/29 2200 AC 11/06 INH 1825 Amlodipine Besylate 10 MG DAILY 10/29 1000 AC 11/06 PO 1009 Aspirin 81 MG DAILY 11/05 1000 AC 11/06 PO 1009 Atorvastatin Calcium 20 MG 1700 11/03 1700 AC 11/06 PO 1652 Azithromycin 500 MG Q24H 11/03 1900 AC 11/06 Sodium Chloride 250 ML IV 1653 Bisacodyl 5 MG DAILY 11/03 1000 AC 11/06 PO 1009 Ceftriaxone Sodium 1,000 MG Q24H / 1800 AC 05/07 IV 1652 Docusate Sodium 100 MG BID 10/29 1000 AC 11/06 PO 2146 Epoetin Earnest 4,000 UNIT MoWeFr PRN 11/04 0800 AC IV Ferrous Sulfate 325 MG BID 10/28 222 AC 11/06 PO 2147 Gabapentin 100 MG QPM 10/29 2200 AC 11/06 PO 214 Heparin Sodium 5,000 UNIT Q8 10/28 2214 AC 11/07 (Porcine) SC 0627 Isosorbide 90 MG DAILY 10/29 1000 AC 11/06 Mononitrate PO 1009 Labetalol HCl 300 MG BID 10/28 222 AC 11/06 PO 214 Levothyroxine Sodium 0.05 MG 0600 11/04 0600 AC 11/07 PO 0627 Multivitamins 1 TAB DAILY 11/01 1000 AC 11/06 PO 1009 Polyethylene Glycol 17 GM DAILY 10/31 1727 AC 11/06 PO 1008 Potassium Chloride 40 MEQ ONCE ONE 11/06 1200 DC 11/06 PO 11/06 1201 1315 Senna/Docusate Sodium 1 TAB BID PRN 10/31 1730 AC 11/02 PO 2215 Sevelamer Carbonate 800 MG WM 11/03 1700 AC 11/06 PO 1652 Results Last 48 Hrs of Labs/Mics: Laboratory Tests 11/07/16 0730: Anion Gap 11, Estimated GFR 17 L, BUN/Creatinine Ratio 13.5, Glucose 87, Calcium 8.1 L, Kra-X-Tzpjnjcrfyf Pept 54518 H, CBC w Diff NO MAN DIFF REQ, RBC 3.02 L, MCV 89.5, MCH 29.0, RDW 16.2 H, MPV 7.5, Gran % 72.4, Lymphocytes % 11.3 L, Monocytes % 10.1 H, Eosinophils % 5.9 H, Basophils % 0.3, Absolute Granulocytes 3.1, Absolute Lymphocytes 0.5 L, Absolute Monocytes 0.4, Absolute Eosinophils 0.3, Absolute Basophils 0, PUBS MCHC 32.4 L 11/07/16 0700: Hna-D-Nnnoagtwnck Pept Cancelled, CBC w Diff Cancelled, WBC Cancelled, RBC Cancelled, Hgb Cancelled, Hct Cancelled, MCV Cancelled, MCH Cancelled, RDW Cancelled, Plt Count Cancelled, MPV Cancelled, PUBS MCHC Cancelled 11/07/16 0626: Anion Gap 11, Estimated GFR 17 L, BUN/Creatinine Ratio 13.8, Phosphorus 3.8, Magnesium 2.3 11/06/16 0710: Anion Gap 12, Estimated GFR 17 L, BUN/Creatinine Ratio 12.6, CBC w Diff NO MAN DIFF REQ, RBC 3.02 L, MCV 89.8, MCH 28.8, RDW 15.9 H, MPV 7.9, Gran % 67.5, Lymphocytes % 11.7 L, Monocytes % 13.3 H, Eosinophils % 7.0 H, Basophils % 0.5, Absolute Granulocytes 2.5, Absolute Lymphocytes 0.4 L, Absolute Monocytes 0.5, Absolute Eosinophils 0.3, Absolute Basophils 0, PUBS MCHC 32.0 L Assessment/Plan Assessment/Plan 1. Chronic diastolic heart failure 2. Coronary disease by history status post coronary bypass surgery 3. End-stage renal disease with plan for dialysis 4. Chronic anemia 5. Hypertension 6. Hyperlipidemia 7. Obstructive sleep apnea/hypoventilation 8. Mild to moderate mitral/aortic stenosis by recent echocardiogram 9. History of significant carotid stenosis being managed medically by vascular 10. Hypoxia/respiratory failure/PNA Patient resting comfortably. Undergoing dialysis this morning. Offers no complaints. Remains on nasal cannula oxygen. Has been started on daily aspirin given the history of coronary artery disease and carotid stenosis. Remains on intravenous antibiotics. As he still makes urine might be a candidate for oral Lasix but will defer to nephrology. Gonzalo Lamas MD [facility] Continue telemetry? Not applicable
--- NOTE | 2016-11-07 10:50 | PN- Nephrology ---
Assessment/Plan Assessment: 1. 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 Coronary artery disease status post CABG 5 with congestive heart failure 3. Hypertension, hyperlipidemia 4. Obstructive sleep apnea 5. Anemia - on Epo 6. Hyperphosphatemia - controlled Suggestion: 1. Hemodialysis today in progress with 2 L ultrafiltration goal over 3.5 hours 2. Can restart cholecalciferol; continue to hold calcitriol; will add PTH level to today's labs 3. Will continue Epogen with his dialysis 4. Await outpatient dialysis slot at [facility] 5. Permanent vascular access as outpatient (Dr. Dill) Subjective Subjective: Patient feeling well without any specific complaints. Seen with hemodialysis. Objective Vital Signs and I&Os Vital Signs Date Time Temp Pulse Resp B/P B/P Pulse O2 O2 Flow FiO2 Mean Ox Delivery Rate 11/07 729 97.7 71 20 150/60 94 Room Air 11/07 0029 97.7 66 20 138/50 96 11/07 0000 Nasal 3.0L Cannula 11/06 2146 158/74 11/06 1825 94 Nasal 3.0L Cannula 11/06 1600 Nasal 3.0L Cannula 11/06 1545 97.6 61 20 132/66 93 Nasal 3.0L Cannula Intake & Output 11/07 1600 11/07 0400 11/06 1600 11/06 0400 11/05 1600 11/05 0400 Intake Total 730 620 560 750 Output Total 675 200 800 400 200 Balance -675 -200 -70 620 160 550 Intake, IV 10 270 10 270 Intake, Oral 720 350 550 480 Number 2 1 Bowel Movements Output, Urine 675 200 800 400 200 Patient 225 lb 226 lb 220 lb Weight Weight Standing Scale Standing Scale Measurement Method Physical Exam: General: Well-developed, elderly obese white male on nasal oxygen in NAD Skin: No rash or jaundice HEENT: Conjunctivae pale, sclerae anicteric, mucous membranes moist Neck: Without masses or thyromegaly, no supraclavicular or cervical adenopathy; right IJ catheter in place Chest: Clear with few scattered rales Heart: Regular rate and rhythm without S3 or rub Abdomen: Obese, soft and nontender without palpable masses or organomegaly Extremities: Without cyanosis or edema Neuro: No focal findings, no asterixis or myoclonus Current Medications: Current Medications Sig/Tiffanie Start time Last Medication Dose Route Stop Time Status Admin Acetaminophen 650 MG .STK-MED ONE 11/07 2035 DC PO 11/06 203 Acetaminophen 650 MG Q6P PRN 10/28 2230 AC 11/06 PO 2036 Albuterol Sulfate 3 ML BID 10/29 2200 AC 11/06 INH 1825 Amlodipine Besylate 10 MG DAILY 10/29 1000 AC 11/06 PO 1009 Aspirin 81 MG DAILY 11/05 1000 AC 11/06 PO 1009 Atorvastatin Calcium 20 MG 1700 11/03 1700 AC 11/06 PO 1652 Azithromycin 500 MG Q24H 11/03 1900 AC 11/06 Sodium Chloride 250 ML IV 1653 Bisacodyl 5 MG DAILY 11/03 1000 AC 11/06 PO 1009 Ceftriaxone Sodium 1,000 MG Q24H 11/03 1800 AC 11/06 IV 1652 Docusate Sodium 100 MG BID 10/29 1000 AC 11/06 PO 2146 Epoetin Earnest 4,000 UNIT MoWeFr PRN 11/04 0800 AC IV Ferrous Sulfate 325 MG BID 10/28 2220 AC 11/06 PO 2147 Gabapentin 100 MG QPM 10/29 2200 AC 11/06 PO 2146 Heparin Sodium 5,000 UNIT Q8 10/28 2214 AC 11/07 (Porcine) SC 0627 Isosorbide 90 MG DAILY 10/29 1000 AC 11/06 Mononitrate PO 1009 Labetalol HCl 300 MG BID 10/28 2220 AC 11/06 PO 2146 Levothyroxine Sodium 0.05 MG 0600 11/04 0600 AC 11/07 PO 0627 Multivitamins 1 TAB DAILY 11/01 1000 AC 11/06 PO 1009 Polyethylene Glycol 17 GM DAILY 10/31 1727 AC 11/06 PO 1008 Potassium Chloride 40 MEQ ONCE ONE 11/06 1200 DC 11/06 PO 11/06 1201 1315 Senna/Docusate Sodium 1 TAB BID PRN 10/31 1730 AC 11/02 PO 2215 Sevelamer Carbonate 800 MG WM 11/03 1700 AC 11/06 PO 1652 Results Pertinent Lab Results: Laboratory Tests 11/07 11/07 11/07 0730 0700 0626 Chemistry Sodium (137 - 145 mmol/L) 140 140 Potassium (3.5 - 5.1 mmol/L) 4.1 4.3 Chloride (98 - 107 mmol/L) 101 102 Carbon Dioxide (22 - 30 mmol/L) 28 27 Anion Gap (5 - 16) 11 11 BUN (9 - 20 mg/dL) 46 H 47 H Creatinine (0.7 - 1.2 mg/dL) 3.4 H 3.4 H Estimated GFR (>60 ml/min) 17 L 17 L BUN/Creatinine Ratio (7 - 25 %) 13.5 13.8 Glucose (65 - 99 mg/dL) 87 Calcium (8.4 - 10.2 mg/dL) 8.1 L Phosphorus (2.5 - 4.5 mg/dL) 3.8 Magnesium (1.6 - 2.3 mg/dL) 2.3 [id number]-Eystmfvpljc Pept (<125 pg/mL) 82854 H Cancelled Hematology CBC w Diff NO MAN DIFF REQ Cancelled WBC (4.8 - 10.8 /CUMM) 4.3 L Cancelled RBC (4.70 - 6.10 /CUMM) 3.02 L Cancelled Hgb (14.0 - 18.0 G/DL) 8.8 L Cancelled Hct (42 - 52 %) 27.1 L Cancelled MCV (80.0 - 94.0 FL) 89.5 Cancelled MCH (27.0 - 31.0 PG) 29.0 Cancelled RDW (11.5 - 14.5 %) 16.2 H Cancelled Plt Count (130 - 400 /CUMM) 198 Cancelled MPV (7.4 - 10.4 FL) 7.5 Cancelled Gran % (42.2 - 75.2 %) 72.4 Lymphocytes % (20.5 - 51.1 %) 11.3 L Monocytes % (1.7 - 9.3 %) 10.1 H Eosinophils % (0 - 5 %) 5.9 H Basophils % (0.0 - 2.0 %) 0.3 Absolute Granulocytes (1.4 - 6.5 /CUMM) 3.1 Absolute Lymphocytes (1.2 - 3.4 /CUMM) 0.5 L Absolute Monocytes (0.10 - 0.60 /CUMM) 0.4 Absolute Eosinophils (0.0 - 0.7 /CUMM) 0.3 Absolute Basophils (0.0 - 0.2 /CUMM) 0 PUBS MCHC (33.0 - 37.0 G/DL) 32.4 L Cancelled 11/06 11/05 0710 0754 Chemistry Sodium (137 - 145 mmol/L) 139 140 Potassium (3.5 - 5.1 mmol/L) 3.7 3.9 Chloride (98 - 107 mmol/L) 101 101 Carbon Dioxide (22 - 30 mmol/L) 25 27 Anion Gap (5 - 16) 12 12 BUN (9 - 20 mg/dL) 43 H 41 H Creatinine (0.7 - 1.2 mg/dL) 3.4 H 2.9 H Estimated GFR (>60 ml/min) 17 L 21 L BUN/Creatinine Ratio (7 - 25 %) 12.6 14.1 Hematology CBC w Diff NO MAN DIFF REQ NO MAN DIFF REQ WBC (4.8 - 10.8 /CUMM) 3.7 L 3.8 L RBC (4.70 - 6.10 /CUMM) 3.02 L 2.89 L Hgb (14.0 - 18.0 G/DL) 8.7 L 8.4 L Hct (42 - 52 %) 27.1 L 25.9 L MCV (80.0 - 94.0 FL) 89.8 89.7 MCH (27.0 - 31.0 PG) 28.8 29.2 RDW (11.5 - 14.5 %) 15.9 H 16.3 H Plt Count (130 - 400 /CUMM) 174 163 MPV (7.4 - 10.4 FL) 7.9 7.9 Gran % (42.2 - 75.2 %) 67.5 71.4 Lymphocytes % (20.5 - 51.1 %) 11.7 L 10.2 L Monocytes % (1.7 - 9.3 %) 13.3 H 11.5 H Eosinophils % (0 - 5 %) 7.0 H 6.4 H Basophils % (0.0 - 2.0 %) 0.5 0.5 Absolute Granulocytes (1.4 - 6.5 /CUMM) 2.5 2.7 Absolute Lymphocytes (1.2 - 3.4 /CUMM) 0.4 L 0.4 L Absolute Monocytes (0.10 - 0.60 /CUMM) 0.5 0.4 Absolute Eosinophils (0.0 - 0.7 /CUMM) 0.3 0.2 Absolute Basophils (0.0 - 0.2 /CUMM) 0 0 PUBS MCHC (33.0 - 37.0 G/DL) 32.0 L 32.6 L
--- NOTE | 2016-11-07 14:53 | NUR ---
Referral received this am from disability case manager that patient will require chronic hemodialysis as an outpatient. Met with patient and his this afternoon. Mrs. Martinez reports that she will transport her to dialysis and that he absolutely is not going to rehab! (in spite of PT recommendations). Appropriate clinical information FAXED to [facility] so outpatient slot may be assigned. Will collaborate with case management.
--- NOTE | 2016-11-07 16:10 | NUR ---
Notified of available outpatient hemodialysis slot to begin on 11/09/16 at 2:30pm. Patient, and mattress spring encaser notified. remains confident in her ability totransport patient.
[2016-11-07 16:23] VITALS: BP 142/64
--- NOTE | 2016-11-07 17:12 | PN- Att Addend ---
Attending MD Review Statement Attending Statement Attending MD Statement: examined this patient, discuss w/resident/PA/PICU NURSE, agreed w/resident/PA/PICU NURSE, discussed with family, reviewed EMR data (avail), discussed w/ nursing, discussed w/case mgmt Attending Assessment/Plan: Laboratory Tests 11/07/16 0730: Anion Gap 11, Estimated GFR 17 L, BUN/Creatinine Ratio 13.5, Glucose 87, Calcium 8.1 L, Gaa-T-Hkckdyzrnwm Pept 58385 H, PTH Intact 271.6 H, CBC w Diff NO MAN DIFF REQ, RBC 3.02 L, MCV 89.5, MCH 29.0, RDW 16.2 H, MPV 7.5, Gran % 72.4, Lymphocytes % 11.3 L, Monocytes % 10.1 H, Eosinophils % 5.9 H, Basophils % 0.3, Absolute Granulocytes 3.1, Absolute Lymphocytes 0.5 L, Absolute Monocytes 0.4, Absolute Eosinophils 0.3, Absolute Basophils 0, PUBS MCHC 32.4 L 11/07/16 0700: Xxz-E-Wkvypnaskql Pept Cancelled, CBC w Diff Cancelled, WBC Cancelled, RBC Cancelled, Hgb Cancelled, Hct Cancelled, MCV Cancelled, MCH Cancelled, RDW Cancelled, Plt Count Cancelled, MPV Cancelled, PUBS MCHC Cancelled 11/07/16 0626: Anion Gap 11, Estimated GFR 17 L, BUN/Creatinine Ratio 13.8, Phosphorus 3.8, Magnesium 2.3 Vital Signs Date Time Temp Pulse Resp B/P B/P Pulse O2 O2 Flow FiO2 Mean Ox Delivery Rate 11/07 1623 98.7 66 20 142/64 91 Nasal 2.0L Cannula 11/07 1337 Nasal 3.0L Cannula 11/07 1310 96 Nasal 3.0L Cannula 11/07 1147 70 176/80 11/07 1147 70 176/80 11/07 1145 70 176/80 11/07 0730 97.7 71 20 150/60 94 Room Air 11/07 0029 97.7 66 20 138/50 96 08 0000 Nasal 3.0L Cannula 11/06 2146 158/74 11/06 1825 94 Nasal 3.0L Cannula Patient seen and examined at bedside. Discussed with patient the care plan. Discussed with patient's at bedside the care plan. Patient currently doing better on hemodialysis and case picker and copy reader is working on getting him a place for long-term dialysis prior to discharge. Community-acquired pneumonia patient currently is on ceftriaxone and Zithromax day #5. We will monitor him closely.
[2016-11-08 00:26] VITALS: BP 160/80
[2016-11-08 02:33] VITALS: BP 140/80
[2016-11-08 07:50] VITALS: BP 160/80
--- NOTE | 2016-11-08 08:43 | PN- Pulmonary ---
ANNIKA HANNAH 11/08/16 0842: Subjective HPI/Critical Care Issues: Patient was seen and examined today. Patient alert, awake, oriented. He stated that he is feeling better regarding his overall status. He denies any fever, chills, chest pain. Patient awaiting approval and arrangement of outpatient dialysis spot. He is on 2 L nasal cannula oxygen with oxygen saturation more than 91%. Afebrile. Objective Current Medications: Current Medications Sig/Tiffanie Start time Last Medication Dose Route Stop Time Status Admin Acetaminophen 650 MG .STK-MED ONE 11/08 2107 DC PO 11/07 210 Acetaminophen 650 MG Q6P PRN 10/28 2230 AC 11/07 PO 2114 Albuterol Sulfate 3 ML BID 10/29 2200 AC 11/08 INH 0854 Amlodipine Besylate 10 MG DAILY 10/29 1000 AC 11/08 PO 0925 Aspirin 81 MG DAILY 11/05 1000 AC 11/08 PO 0926 Atorvastatin Calcium 20 MG 1700 11/03 1700 AC 11/07 PO 1728 Azithromycin 500 MG Q24H 11/03 1900 DC 11/07 Sodium Chloride 250 ML IV 1900 Bisacodyl 5 MG DAILY 11/03 1000 AC 11/07 PO 1145 Ceftriaxone Sodium 1,000 MG Q24H 11/03 1800 DC 11/07 IV 1728 Cholecalciferol 1,000 IU DAILY 11/08 1000 AC 11/08 PO 0924 Docusate Sodium 100 MG BID 10/29 1000 AC 11/08 PO 0925 Epoetin Earnest 4,000 UNIT MoWeFr PRN 11/04 0800 AC IV Ferrous Sulfate 325 MG BID 10/28 2220 AC 11/08 PO 0925 Gabapentin 100 MG QPM 10/29 2200 AC 11/07 PO 2111 Heparin Sodium 5,000 UNIT Q8 10/28 2214 AC 11/08 (Porcine) SC 0542 Isosorbide 90 MG DAILY 10/29 1000 AC 11/08 Mononitrate PO 0926 Labetalol HCl 300 MG BID 10/28 2220 AC 11/08 PO 0925 Levothyroxine Sodium 0.05 MG 0600 11/04 0600 AC 11/08 PO 0542 Multivitamins 1 TAB DAILY 11/01 1000 AC 11/08 PO 0925 Polyethylene Glycol 17 GM DAILY 10/31 1727 AC 11/07 PO 1146 Senna/Docusate Sodium 1 TAB BID PRN 10/31 1730 AC 11/02 PO 2215 Sevelamer Carbonate 800 MG WM 11/03 1700 AC 11/08 PO 0926 Tramadol HCl 50 MG ONCE ONE 11/08 0130 DC 11/08 PO 11/08 130 0136 Vital Signs & I&O Last 24 Hrs of Vitals and I&O: Vital Signs Date Time Temp Pulse Resp B/P B/P Pulse O2 O2 Flow FiO2 Mean Ox Delivery Rate 11/08 925 74 160/80 11/08 924 74 160/80 11/08 924 74 160/80 11/09 0754 95 Nasal 2.0L Cannula 11/08 08 94 Nasal 2.0L Cannula 11/08 0750 98.8 70 20 160/80 92 Nasal 2.0L Cannula 11/08 0233 68 140/80 11/08 0026 98.1 69 20 160/80 93 Nasal 1.0L Cannula 11/08 0000 93 Nasal 2.0L Cannula 11/07 2113 68 140/60 11/07 1850 93 Nasal 2.0L Cannula 11/07 1623 98.7 66 20 142/64 91 Nasal 2.0L Cannula 11/07 1600 93 Nasal 2.0L Cannula 11/07 1337 Nasal 3.0L Cannula 11/07 1310 96 Nasal 3.0L Cannula 11/07 1147 70 176/80 11/07 1147 70 176/80 11/07 1145 70 176/80 Intake & Output 11/08 1600 11/08 0800 11/08 0000 Intake Total 200 700 Output Total 400 Balance -200 700 Intake, IV 300 Intake, Oral 200 400 Number 1 Bowel Movements Output, Urine 400 Patient 224 lb Weight Weight Standing Scale Measurement Method Exam General Appearance: well developed/nourished, alert, awake, comfortable Head: atraumatic Neck: supple Respiratory: chest non-tender, no respiratory distress, decreased breath sounds, right side tunneled cath noted. Cardiovascular: regular rate/rhythm Abdomen: normal bowel sounds, soft, non-tender Extremities: no edema Results Last 24 Hrs of Lab Results: Laboratory Tests 11/08/16 0754: Anion Gap 12, Estimated GFR 25 L, BUN/Creatinine Ratio 9.2, Glucose 85, Calcium 8.1 L Impression/Plan Impression/Plan Impression/Plan: Assessment: 1. Persistent dyspnea, etiology is multifactorial 2/2- acute on chronic diastolic heart failure in conjunction with renal failure, chronic pulmonary hypertension, obesity hypoventilation, new multilobar consolidations as seen by chest CT 2. Acute on chronic diastolic heart failure 3. Acute on chronic renal failure, with initiation of dialysis since 2016. Recommendation: -Continue oxygen supplement at 2 L which is his home -DC Cruz catheter. -Continue Incentive spirometry -Continue TRC nebs as needed -Lasix is on hold per recommendations from nephrology and cardiology. -Continue IV ceftriaxone and azithromycin for now, that can be changed to by mouth prior to discharge to complete total course of 10 days. -Management of other medical problems per primary team -DVT prophylaxis at all times JAY GRIFFIN MD 11/08/16 1022: Impression/Plan Impression/Plan Recommendations: Jay Mustafa M.D. have examined this patient, reviewed available EMR data, personally reviewed images, discussed with resident/PA/TRAVELING OPERATOR, discussed management plan with housestaff and nursing staff, discussed managment plan all of healthcare providers, discussed management plan with patient and/or family, agreed with resident/PA/TRAVELING OPERATOR. The past history and parts of the chart have been autopopulated. HD per renal DC PLANNING plan for outpt vascular access cont o2 supplementation declines pap therapy dc cruz
--- NOTE | 2016-11-08 09:16 | PN- Cardiology ---
Subjective Subjective: Patient without specific complaints. He is sitting at the bedside eating breakfast. He denies chest pain or shortness of breath. Review of Systems: Eyes no blurred or double vision Ears no deafness or ringing Nose and throat no recurrent sinusitis Lungs per history of present illness Heart per history of present illness Abdomen no nausea vomiting Musculoskeletal occasional muscle and joint pains Psych no anxiety or depression Neuro without recurrent headache or seizures Endocrine no heat or cold intolerance Objective Vital Signs and I&Os Vital Signs Date Time Temp Pulse Resp B/P B/P Pulse O2 O2 Flow FiO2 Mean Ox Delivery Rate 11/08 0854 95 Nasal 2.0L Cannula 11/08 0750 98.8 70 20 160/80 92 Nasal 2.0L Cannula 11/08 0233 68 140/80 11/08 0026 98.1 69 20 160/80 93 Nasal 1.0L Cannula 11/08 0000 93 Nasal 2.0L Cannula 11/07 2113 68 140/60 11/07 1850 93 Nasal 2.0L Cannula 11/07 1623 98.7 66 20 142/64 91 Nasal 2.0L Cannula 11/07 1600 93 Nasal 2.0L Cannula 11/07 1337 Nasal 3.0L Cannula 11/07 1310 96 Nasal 3.0L Cannula 11/07 1147 70 176/80 11/07 1147 70 176/80 11/07 1145 70 176/80 Intake & Output 11/08 1600 11/08 0800 / 0000 / 1600 11/07 0800 11/07 0000 Intake Total 200 700 240 Output Total 400 700 675 200 Balance -200 700 -460 -675 -200 Intake, IV 300 Intake, Oral 200 400 240 Number 1 0 Bowel Movements Output, Urine 400 700 675 200 Patient 224 lb 220 lb 225 lb Weight Weight Standing Scale Measurement Method Physical Exam: Patient is a well-developed well-nourished male appearing in no acute distress HEENT is unremarkable Neck is supple there is no JVD Lungs are clear Heart regular rhythm S1 and S2 are normal no gallops or rubs 3/6 COCO LSB Abdomen bowel sounds positive Extremities without edema Current Medications: Current Medications Sig/Tiffanie Start time Last Medication Dose Route Stop Time Status Admin Acetaminophen 650 MG .STK-MED ONE 11/08 2107 DC PO 11/07 2108 Acetaminophen 650 MG Q6P PRN 10/280 AC 11/07 PO 2114 Albuterol Sulfate 3 ML BID 10/29 2200 AC 11/08 INH 0854 Amlodipine Besylate 10 MG DAILY 10/29 1000 AC 11/07 PO 1147 Aspirin 81 MG DAILY 11/05 1000 AC 11/07 PO 1143 Atorvastatin Calcium 20 MG 1700 11/03 1700 AC 11/07 PO 1728 Azithromycin 500 MG Q24H 11/03 1900 DC 11/07 Sodium Chloride 250 ML IV 1900 Bisacodyl 5 MG DAILY 11/03 1000 AC 11/07 PO 1145 Ceftriaxone Sodium 1,000 MG Q24H 11/03 1800 DC 11/07 IV 1728 Cholecalciferol 1,000 IU DAILY 11/08 1000 AC PO Docusate Sodium 100 MG BID 10/29 1000 AC 11/07 PO 2111 Epoetin Earnest 4,000 UNIT MoWeFr PRN 11/04 0800 AC IV Ferrous Sulfate 325 MG BID 10/28 2220 AC 11/07 PO 2111 Gabapentin 100 MG QPM 10/29 2200 AC 11/07 PO 2111 Heparin Sodium 5,000 UNIT Q8 10/28 2214 AC 11/08 (Porcine) SC 0542 Isosorbide 90 MG DAILY 10/29 1000 AC 11/07 Mononitrate PO 1145 Labetalol HCl 300 MG BID 10/28 2220 AC 11/07 PO 2113 Levothyroxine Sodium 0.05 MG 0600 11/04 0600 AC 11/08 PO 0542 Multivitamins 1 TAB DAILY 11/01 1000 AC 11/07 PO 1146 Polyethylene Glycol 17 GM DAILY 10/31 1727 AC 11/07 PO 1146 Senna/Docusate Sodium 1 TAB BID PRN 10/31 1730 AC 11/02 PO 2215 Sevelamer Carbonate 800 MG WM 11/03 1700 AC 11/07 PO 1728 Tramadol HCl 50 MG ONCE ONE 11/08 0130 DC 11/08 PO 11/08 0131 0136 Results Last 48 Hrs of Labs/Mics: Laboratory Tests 11/08/16 0754: Anion Gap 12, Estimated GFR 25 L, BUN/Creatinine Ratio 9.2, Glucose 85, Calcium 8.1 L 11/07/16 0730: Anion Gap 11, Estimated GFR 17 L, BUN/Creatinine Ratio 13.5, Glucose 87, Calcium 8.1 L, Ovk-U-Vdmtkkxtpyv Pept 80733 H, PTH Intact 271.6 H, CBC w Diff NO MAN DIFF REQ, RBC 3.02 L, MCV 89.5, MCH 29.0, RDW 16.2 H, MPV 7.5, Gran % 72.4, Lymphocytes % 11.3 L, Monocytes % 10.1 H, Eosinophils % 5.9 H, Basophils % 0.3, Absolute Granulocytes 3.1, Absolute Lymphocytes 0.5 L, Absolute Monocytes 0.4, Absolute Eosinophils 0.3, Absolute Basophils 0, PUBS MCHC 32.4 L 11/07/16 0700: Amu-P-Oobjotqugpl Pept Cancelled, CBC w Diff Cancelled, WBC Cancelled, RBC Cancelled, Hgb Cancelled, Hct Cancelled, MCV Cancelled, MCH Cancelled, RDW Cancelled, Plt Count Cancelled, MPV Cancelled, PUBS MCHC Cancelled 11/07/16 0626: Anion Gap 11, Estimated GFR 17 L, BUN/Creatinine Ratio 13.8, Phosphorus 3.8, Magnesium 2.3 Assessment/Plan Assessment/Plan 1. Chronic diastolic heart failure 2. Coronary disease by history status post coronary bypass surgery 3. End-stage renal disease with plan for dialysis 4. Chronic anemia 5. Hypertension 6. Hyperlipidemia 7. Obstructive sleep apnea/hypoventilation 8. Mild to moderate mitral/aortic stenosis by recent echocardiogram 9. History of significant carotid stenosis being managed medically by vascular 10. Hypoxia/respiratory failure/PNA Recommendations 1. Continue current medications 2. Plan is for AV fistula for dialysis access as an outpatient 3. Awaiting his seat at [facility] for outpatient dialysis Continue telemetry? No
--- NOTE | 2016-11-08 09:56 | PN- Housestaff ---
ONUR BAIN,JACOB 11/08/16 0956: Subjective Follow-up For: Acute resp failure ESRD Subjective: Pt seen and examined at bedside while laying comfortable. Does not endorse any acute complaints. VS stable. No o/n event reported by nursing staff. Review of Systems Constitutional: Reports: no symptoms. Objective Last 24 Hrs of Vital Signs/I&O Vital Signs Date Time Temp Pulse Resp B/P B/P Pulse O2 O2 Flow FiO2 Mean Ox Delivery Rate 11/08 1750 98.5 68 18 156/68 95 Nasal 2.0L Cannula 11/08 1648 94 Nasal 2.0L Cannula 11/08 09 74 160/80 11/08 0925 74 160/80 11/08 0925 74 160/80 11/08 0854 95 Nasal 2.0L Cannula 11/08 0800 94 Nasal 2.0L Cannula 11/08 0750 98.8 70 20 160/80 92 Nasal 2.0L Cannula 11/08 0233 68 140/80 11/08 0026 98.1 69 20 160/80 93 Nasal 1.0L Cannula 11/08 0000 93 Nasal 2.0L Cannula Intake & Output 11/08 1600 11/08 0800 11/08 0000 Intake Total 600 200 700 Output Total 325 400 Balance 275 -200 700 Intake, IV 300 Intake, Oral 600 200 400 Number 1 Bowel Movements Output, Urine 325 400 Patient 101.605 kg Weight Weight Standing Scale Measurement Method Physical Exam General Appearance: Alert, Oriented X3, Cooperative Other Physical Findings: General Exam: lethargic, AAOx3, No acute distress, Skin: No rashes, no breakdown HEENT: PERRLA, EOMI Neck: Supple, No JVD No cervical lymphadenopathy CVS: Reg Rate, Normal S1,S2, No MGR Resp: Decreased air entry b/l, ronchi/rales b/l Abdomen: Soft, No tenderness, Normal Bowel Sounds Neuro: Normal Speech, Strength 5/5 b/l x 4 extremities, Sensation intact, CN III -XII NL, Reflexes 2+ Extremities: No cyanosis, pedal edema, asael cath in place w/o any erythema or tenderness. Current Medications: Current Medications Sig/Tiffanie Start time Last Medication Dose Route Stop Time Status Admin Acetaminophen 650 MG Q6P PRN 10/28 2229 DCD 11/07 PO 2113 Albuterol Sulfate 3 ML BID 10/29 2199 DCD 11/08 INH 1645 Amlodipine Besylate 10 MG DAILY 10/29 1000 DCD 05 PO 0925 Aspirin 81 MG DAILY 11/05 1000 DCD 11/08 PO 0926 Atorvastatin Calcium 20 MG 1700 11/03 1700 DCD 05 PO 1800 Bisacodyl 5 MG DAILY 11/03 1000 DCD 11/07 PO 1145 Cholecalciferol 1,000 IU DAILY 11/08 1000 DCD 11/08 PO 0924 Docusate Sodium 100 MG BID 10/29 1000 DCD 11/08 PO 0925 Epoetin Earnest 4,000 UNIT MoWeFr PRN 11/04 0800 DCD IV Ferrous Sulfate 325 MG BID 10/28 2220 DCD 11/08 PO 0925 Gabapentin 100 MG QPM 10/29 2200 DCD 11/07 PO 2111 Heparin Sodium 5,000 UNIT Q8 10/28 2214 DCD 11/08 (Porcine) SC 0542 Isosorbide 90 MG DAILY 10/29 1000 DCD 11/08 Mononitrate PO 0926 Labetalol HCl 300 MG BID 10/28 2220 DCD 11/08 PO 0925 Levothyroxine Sodium 0.05 MG 0600 11/04 0600 DCD 11/08 PO 0542 Multivitamins 1 TAB DAILY 11/01 1000 DCD 11/08 PO 0925 Patient Medication 1 ED .STK-MED ONE 11/08 1356 OH Teaching ED 11/08 1357 Polyethylene Glycol 17 GM DAILY 10/31 1727 DCD 11/07 PO 1146 Senna/Docusate Sodium 1 TAB BID PRN 10/31 1730 DCD 11/02 PO 2215 Sevelamer Carbonate 800 MG WM 11/03 1700 DCD 05 PO 1800 Tramadol HCl 50 MG ONCE ONE 11/08 0130 DC 11/08 PO 11/08 0131 0136 Last 24 Hrs of Lab/Jamel Results Last 24 Hrs of Labs/Mics: Laboratory Tests 11/08/16 0754: Anion Gap 12, Estimated GFR 25 L, BUN/Creatinine Ratio 9.2, Glucose 85, Calcium 8.1 L Assessment/Plan Assessment: Mr Martinez is an 86-year-old male with past medical history of CAD status post CABG, heart failure with preserved ejection fraction, hypothyroidism, CKD- stage 5 is being evaluated for worsening bilateral lower extremity edema and 8 pound weight gain despite being on furosemide likely due to worsening renal function and volume overload. Discharge pending availability of dialysis slot if patient remains hemodynamically stable with stable respiratory status. Below is the problem list and plan: 1. Acute on chronic respiratory failure likely multifactorial-volume overload, acute on CKD and diastolic HF, pulmonary HTN, or pneumonia. Patient initially diuresed with high dose of furosemide, which was discontinued. Also s/p ceftriaxone and Azithro for possible PNA. 2. GURPREET on CKD stage 5-kidney function was worsening, and so the decision was made to hemodialyze the patient. Tunneled Asael cath placed without any complications. Hemodialysis 3 sessions so far. Sponge Maker-Salvador Zepeda MD advising. In view of long-term hemodialysis, AV fistula was planned, but would be placed as an outpatient. Started on sevelamir. awaiting sest at [facility]. 3. History of CAD, hypertension- Continue Imdur, labetalol and amlodipine. Juan J Lamas MD advising. Aspirin restarted after a decision is made about placement of aVF. Placement of AVF would most likely be done as an outpatinet. 4. Normocytic anemia secondary to chronic kidney disease- likely anemia of chronic disease. Received Epogen on Monday. H&H stable at this time. 5. Chronic back pain- His complain of neuropathic pain is probably related to shingles, continue gabapentin at a lower dose 100 mg at bedtime due to worsening kidney function. May discontinue it, if the pt continues to be lethargic. 6. Hypothyroidism- Continue levothyroxine 7. DVT prophylaxis- Subcutaneous heparin 8. Full code Problem List: 1. End stage renal disease Pain Ratin Pain Location: none Pain Goal: Remain pain free Pain Plan: per pain pathway Tomorrow's Labs & Rationales: none-discharge Consulting Request: Consulting Specialty: Pulmonary Disease Consulting Physician: Dr. Currie Reason for Consult: acute hypoxic respi failure BASIA BAIN,[facility] 11/08/16 1344: Attending MD Review Statement Attending Statement Attending Statement: examined this patient, discuss w/resident/PA/TRIAL JUDGE, agreed w/resident/PA/TRIAL JUDGE, reviewed EMR data (avail), discussed with nursing, discussed with case mgmt, amended to note Attending Assessment/Plan: Patient seen and examined, and denies any complaints. He has been undergoing his dialysis. Please check with nephrology if adding Lasix would be helpful as he still makes urine and cardiology wants to do that if okay with nephrology. Otherwise patient has an outpatient dialysis slot and he is medically stable for discharge home today. He has been seen by PT today and they're recommending home with home care.
--- NOTE | 2016-11-08 11:13 | NUR ---
PHYSICAL THERAPY: ATTEMPTED TO SEE PATIENT TODAY FOR TREATMENT; PATIENT RECIEVED IN CHAIR, RESTING, STATES "I AM GOING HOME TODAY, I DO MY EXERCISES JUST FINE. I WILL DO THEM ONCE I GET HOME." WITH EDUCATION ON THE BENEFITS OF EXERCISE AND OOB, PATIENT CONTINUES TO REFUSE. WILL F/U APPROPRIATE.
[2016-11-08] MEDS ORDERED: ASPIRIN81 M4 PO (15:11)
[2016-11-08] MEDS ORDERED: GABAPENTIN100 M2 PO (15:11)
[2016-11-08] MEDS ORDERED: RENVELA800 M1 PO (15:11)
[2016-11-08] MEDS ORDERED: NORVASC10 M1 PO (15:11)
[2016-11-08] MEDS ORDERED: LASIX80 M1 PO (15:28)
[2016-11-08] MEDS ORDERED: NEPHRO-VITE TA0.8 MG PO (15:28)
[2016-11-08 17:50] VITALS: BP 156/68
== END 2016-11-08 19:00 | disposition home health service (06) | DRG 291 ==
LOC: ERH 16:30 → 1NO 20:32 → ERHI 20:32 → ENRESERV 21:34 → 1NO 22:39
PROVIDERS: Dermatology; Emergency Medicine; Hospitalist; Internal Medicine Endocrinology, Diabetes & Metabolism; Internal Medicine Nephrology; ADMIT Student in an Organized Health Care Education/Training Program
PROC: 0JH63XZ Insertion of Tunneled Vascular Access Device into Chest Subcutaneous Tissue and Fascia, Percutaneous Approach (ICD-10-PCS; principal; 2016-10-31)
PROC: 06H033Z Insertion of Infusion Device into Inferior Vena Cava, Percutaneous Approach (ICD-10-PCS; 2016-10-31)
PROC: B519ZZA Fluoroscopy of Inferior Vena Cava, Guidance (ICD-10-PCS; 2016-10-31)
PROC: 5A1D60Z (ICD-10-PCS; 2016-11-01)
DX: I13.2 Hypertensive heart and chronic kidney disease with heart failure and with stage 5 chronic kidney disease, or end stage renal disease (principal); J96.21 Acute and chronic respiratory failure with hypoxia; N17.9 Acute kidney failure, unspecified; N18.6 End stage renal disease; Z99.81 Dependence on supplemental oxygen; E11.22 Type 2 diabetes mellitus with diabetic chronic kidney disease; Z95.1 Presence of aortocoronary bypass graft; D53.9 Nutritional anemia, unspecified; I35.0 Nonrheumatic aortic (valve) stenosis; I05.0 Rheumatic mitral stenosis; Z99.2 Dependence on renal dialysis; I50.33 Acute on chronic diastolic (congestive) heart failure; E78.5 Hyperlipidemia, unspecified; I25.10 Atherosclerotic heart disease of native coronary artery without angina pectoris; E03.9 Hypothyroidism, unspecified; Z85.038 Personal history of other malignant neoplasm of large intestine; Z87.891 Personal history of nicotine dependence
CPT/HCPCS: 04007; 1NP; 36415; 77001; 81001; 82436; 87040; 87086; 87449; 87450; 93005; 93010; 96374; 97110-GO; 97116-GO; 97162-GP; 97530-GO; 99291; C1752; C1769; J0456; J0696; J0885; J1644; J1940; J3490; J7040

== ENCOUNTER → 2016-12-01 | Day surgery (SDC) | payer OTHER, MEDICARE ==
[~2016-12-01] VITALS: Ht 190.5 cm; Wt 99.8 kg
[~2016-12-01] MED LIST changes: +ASPIRIN81 M4 PO; +CALCITRIOL0.25 MC1 PO; +GABAPENTIN100 M2 PO; +GABAPENTIN300 M2 PO; +LASIX80 M1 PO; +NEPHRO-VITE TA0.8 MG PO; +NORVASC10 M1 PO; +PROCRIT40000 UNIT SC; +RENVELA800 M1 PO
--- NOTE | 2016-12-01 17:20 | Operative Report ---
Operative/Inv Procedure Report Surgery Date: 12/01/16 Name of Procedure: Left brachiocephalic AV fistula Pre-Operative Diagnosis: End-stage renal disease Post-Operative Diagnosis: Same Estimated Blood Loss: less than 50ml Surgeon/Card Grinder Helper: JIMMY PEDRO MD Anesthesia: local monitored anesthesi Operative/Procedure Note Note: The patient was brought to the operating room and placed on the table in the supine position. He was prepped and draped in the usual fashion. Prior to the start of the procedure timeout was taken to confirm the patient and procedure. Additionally a preoperative dose of antibiotics was administered. We began by anesthetizing the region in the upper arm with 1% lidocaine and half percent Marcaine mixed 50-50. I made a longitudinal incision along the course of the cephalic vein which was preoperatively mapped with ultrasound. I dissected down with electrocautery and blunt dissection to identify the cephalic vein. It was mobilized for approximately 4 cm. I then moved medially within the incision and dissected down to the brachial artery. I was able to mobilize the brachial artery and encircle it with vessel loops. The patient was given 2000 units of intravenous heparin. I transected the cephalic vein and swung it over to approximate the brachial artery. The artery was occluded proximally and distally and an end-to-side anastomosis was performed with a running 6-0 Prolene suture. At the completion of the anastomosis, the clamps were released and a strong thrill was felt into the cephalic vein. I irrigated the wound. I reestablished distal flow to the hand and there was a palpable radial pulse. I then closed the wound in 2 layers including a running 3-0 Vicryl subdermal layer and a running 4 -0 Monocryl subcuticular layer. Topical Dermabond skin glue was applied. At the completion of the procedure there was a palpable thrill in the cephalic vein and a palpable radial pulse. I was present and scrubbed throughout. Discharge Disposition: PACU CC: CEM BAIN,PABLO; BRAYAN BAIN,LINDY Lawson
== END ==
LOC: STS 01:53
DX: N18.6 End stage renal disease (principal); I12.0 Hypertensive chronic kidney disease with stage 5 chronic kidney disease or end stage renal disease; I50.9 Heart failure, unspecified; E03.9 Hypothyroidism, unspecified; Z79.82 Long term (current) use of aspirin
CPT/HCPCS: J0131; J1644; J2250; J2440

== ENCOUNTER 2017-07-19 14:06 | Inpatient (IN) | payer OTHER, MEDICARE ==
[~2017-07-19] VITALS: Ht 190.5 cm; Wt 112.1 kg
[2017-07-19 14:50] LABS: ABSOLUTE BASOPHIL COUNT 0 /CUMM (0.0-0.2); ABSOLUTE EOSINOPHIL COUNT 0.1 /CUMM (0.0-0.7); ABSOLUTE GRANULOCYTE CT 3.8 /CUMM (1.4-6.5); ABSOLUTE LYMPH COUNT 0.5 /CUMM (1.2-3.4); ABSOLUTE MONOCYTE COUNT 0.3 /CUMM (0.10-0.60); BASOPHIL % 0 % (0.0-2.0); EOSINOPHIL % 1.1 % (0-5); GRANULOCYTE % 81.3 % (42.2-75.2); HEMATOCRIT 25.6 % (42-52); MEAN CORPUSCULAR HGB 31.3 PG (27.0-31.0); MEAN CORPUSCULAR HGB CONC 34.6 G/DL (33.0-37.0); MEAN CORPUSCULAR VOLUME 90.6 FL (80.0-94.0); MEAN PLATELET VOLUME 9.1 FL (7.4-10.4); PLATELET COUNT 239 /CUMM (130-400); RBC DISTRIBUTION WIDTH 17.6 % (11.5-14.5); RED BLOOD CELL CT 2.83 /CUMM (4.70-6.10); WHITE BLOOD CELL COUNT 4.7 /CUMM (4.8-10.8)
--- NOTE | 2017-07-19 14:54 | ED GENERAL ADULT ---
History of Present Illness General Chief Complaint: Syncope and Near-Syncope Stated Complaint: BIBA SYCOPE Source: patient, family ( ), EMS Exam Limitations: no limitations Allergies Coded Allergies: NO KNOWN ALLERGIES (09/28/15) Reconcile Medications Amlodipine Besylate (Norvasc) 10 MG TABLET 10 MG PO DAILY HTN Aspirin (Aspirin*) 81 MG TAB.CHEW 1 TAB PO DAILY cad Atorvastatin Calcium 20 MG TABLET 1 TAB PO DAILY CHOLESTEROL (Reported) Cholecalciferol (Vitamin D3) (Vitamin D) 1,000 UNIT TABLET 1 TAB PO DAILY SUPPLEMENT (Reported) Docusate Sodium (Colace) 100 MG CAPSULE 1 CAP PO BID STOOL SOFTENER (Reported ) Duloxetine HCl (Unknown Strength) CAPSULE.DR (Unknown Dose) UNKNOWN (Reported ) Epoetin Earnest (Procrit) 40,000 UNIT/ML VIAL 40,000 UNIT SC Q2W ANEMIA ( Reported) Gabapentin (Neurontin) 300 MG CAPSULE 1 CAP PO QPM NEUROPATHY (Reported) Isosorbide Mononitrate 10 MG TABLET 1 TAB PO BID HEART (Reported) Isosorbide Mononitrate (Isosorbide Mononitrate ER) 30 MG TAB.ER.24H 90 MG PO DAILY chest pain Labetalol HCl 300 MG TABLET 1 TAB PO QAM BP (Reported) Labetalol HCl 300 MG TABLET 150 MG PO QPM BP (Reported) Levothyroxine Sodium 50 MCG TABLET 1 TAB PO DAILY THYROID (Reported) Lidocaine 5 % ADH..PATCH 1 PAT TOP DAILY PAIN (Reported) Nephro-Vitamins (Nephro-Becca Tablet) 0.8 MG TABLET 1 TAB PO DAILY esrd Sennosides (Senokot) 8.6 MG TABLET 1 TAB PO DAILY GI (Reported) Sevelamer Carbonate (Renvela) 800 MG TABLET 1 TAB PO WM ESRD Vitamin E (Dl,Tocopheryl Acet) (Vitamin E) 400 UNIT CAPSULE 1 CAP PO DAILY SUPPLEMENT (Reported) Triage Note: BIBA FROM HOME FOR COLD SYMPTOMS AND NEW ONSET JAUNDICE X SEVERAL DAYS WITH SYNCOPAL EPISODE TODAY. PT WAS LETHARGIC WITH LOW RA SATS (HAS PRN 02 AT HOME), ATTEMPTED TO PUT PT TO BED AND PT SYNCOPIZED, FELL OFF BED STRIKING RIGHT ARM AND SUSTAINING SKIN TEAR TO RIGHT ARM. NO HEAD STRIKE. PT STATES HE COULD HEAR TALKING THE WHOLE TIME, STATES PT WAS "UNRESPONSIVE." PT ARRIVES ALERT, FATIGUED, VISIBLY JAUNDICED, BP 90S/50S FOR EMS AND ON ARRIVAL. O2 SAT ON RA 90%, 95% ON 2L NC, C/O CHRONIC POST-HERPATIC PAIN ACROSS CHEST, NO NEW PAIN COMPLAINTS. FS FOR EMS [facility], PT MISSED DIALYSIS TODAY R/T NOT FEELING WELL, NEXT DIALYSIS MONDAY. ON MONDAY DIALYSIS NURSE TOLD PT "THERE WAS YELLOW STREAKS ON THE FILTER" AND PT HAS APPT WITH PMD TOMORROW "TO CHECK LIVER." Triage Nurses Notes Reviewed? yes Onset: Abrupt Duration: hour(s): (1), continues in ED Timing: single episode today Injury Environment: home Severity: mild, moderate No Modifying Factors: none HPI: 87-year-old male multiple medical problems including chronic kidney disease on dialysis, CHF, chronic anemia, brought in by ambulance for evaluation after a syncopal episode. Patient's reports that earlier today patient's oxygen saturation was noted to be 84%. Patient has when necessary oxygen ordered. Patient's was attempting to move him onto his bed noted to give him oxygen. While moving patient suddenly became lightheaded dizzy and syncopized. Patient states that he felt like he was awake during the entire time but the says he was unresponsive. He did fall over and hit his right forearm and sustained a small skin tear. There is no head strike. Patient is not anticoagulated. While patient was unconscious she had a bowel movement of black diarrhea. His reports that he has had multiple episodes of diarrhea over the past few days in clinic several years incontinent. No nausea or vomiting. No chest pain or shortness of breath. Additionally patient's reports that on Monday of this week at dialysis center noted that patient had a yellow color in his dialysis filter. states that over the past several days he has gradually become more yellow in color. No abdominal pain medications. He does not feel lightheaded or dizzy. He does report some associated weakness Patient currently denies any pain or other concerns. (Matthew Mcleod) Vital Signs & Intake/Output Vital Signs & Intake/Output Vital Signs Date Time Temp Pulse Resp B/P B/P Pulse O2 O2 Flow FiO2 Mean Ox Delivery Rate 07/19 1999 75 18 128/58 96 Nasal 2.0L Cannula 07/196 97.3 69 16 112/54 95 Nasal 2.0L Cannula 07/19 1705 82 16 113/59 94 Nasal 2.0L Cannula 07/19 1532 75 16 109/51 95 Nasal 2.0L Cannula 07/19 1500 95 Nasal 2.0L Cannula 07/19 1450 95 Nasal 2.0L Cannula 07/19 1450 97.5 76 20 92/50 90 Room Air (Shayy BAIN,Sean Latham) Past History Medical History Any Pertinent Medical History? see below for history Neurological: TIA EENT: NONE Cardiovascular: CAD (s/p CABG x 5), diastolic CHF, hypertension, hyperlipidemia Respiratory: pulmonary hypertension Gastrointestinal: NONE Hepatic: NONE Renal: chronic kidney disease Musculoskeletal: osteoarthritis Psychiatric: NONE Endocrine: hypothyroidism Cancer(s): colon/rectal cancer [employer]NER/Reproductive: NONE History of MRSA: No History of VRE: No History of CDIFF: No Surgical History Surgical History: CABG, colon resection (sigmoid - Diaz A colon Ca), knee replacement, nerve stimulator Psychosocial History Who do you live with Spouse Services at Home Nursing, Physical Therapy What is your primary language Georgian Family History Family History, If Any: MOTHER, , Age 58; Cause: Colon cancer. FATHER, , Age 70; Cause: Myocardial infarction. Relation not specified for: colon cancer in mother Hx Contributory? No (Matthew Mcleod) Review of Systems Review of Systems Constitutional: Reports: weakness. EENTM: Reports: no symptoms. Respiratory: Reports: no symptoms. Cardiovascular: Reports: no symptoms. GI: Reports: see HPI, diarrhea, melena. Genitourinary: Reports: no symptoms. Musculoskeletal: Reports: no symptoms. Skin: Reports: no symptoms. Neurological/Psychological: Reports: see HPI (SYNCOPE). Hematologic/Endocrine: Reports: no symptoms. Immunologic/Allergic: Reports: no symptoms. All Other Systems: Reviewed and Negative (Matthew Mcleod) Physical Exam Physical Exam General Appearance: no apparent distress, alert, awake, FATIGUED , JAUNDICED Head: atraumatic, normal appearance Eyes: Bilateral: PERRL, EOMI, other (SCLERAL ICTERUS). Ears, Nose, Throat: normal pharynx, normal ENT inspection Neck: normal inspection, supple, full range of motion Respiratory: normal breath sounds, chest non-tender, no respiratory distress, lungs clear Cardiovascular: regular rate/rhythm, normal peripheral pulses Peripheral Pulses: 2+ radial (R), 2+ radial (L) Gastrointestinal: normal bowel sounds, soft, non-tender, no organomegaly Back: normal inspection, normal range of motion Extremities: POSITIVE [facility], THERE IS A SMALL SUPERFICIAL SKIN TEAR ON THE RIGHT FOREARM., PATIENT IS ABLE TO MOVE ALL EXTREMITIES EQUALLY Neurologic/Psych: no motor/sensory deficits, awake, alert, oriented x 3 Skin: intact, warm/dry, jaundice Core Measures ACS in differential dx? No CVA/TIA Diagnosis: No Sepsis Present: No Sepsis Focused Exam Completed? No (Shabbir ARNOLD,Matthew) Progress Differential Diagnoses I considered the following diagnoses in my evaluation of the patient: [Hepatitis , pancreatic cancer, hemolytic anemia, iron overload, cirrhosis, upper GI bleed, lower GI bleed, colon cancer, hepatic encephalopathy, malignancy, arrhythmia, electrolyte abnormality] Diagnostic Imaging: Viewed by Me: Radiology Read, CT Scan, Ultrasound. Discussed w/RAD: Radiology Read, CT Scan, Ultrasound. Radiology Impression: PATIENT: IRIS DREW SR PRESENT AGE: 87 PATIENT ACCOUNT NO: [id number] : 31 LOCATION: [facility] ORDERING PHYSICIAN: Matthew ARNOLD SERVICE DATE: 07/19/17 EXAM TYPE: CAT - CT ABD & PELVIS W/O IV CONTRAS; CT CHEST WO IV CONTRAST EXAMINATION: CT CHEST, ABDOMEN AND PELVIS WITHOUT CONTRAST CLINICAL INFORMATION: Pneumonia. Cholecystitis. Pancreatitis. Malignancy. Syncope. Jaundice. Elevated bilirubin. COMPARISON: Portable chest 07/19/2017. CT chest 08/22/2016. CT abdomen and pelvis 09/26/2015, 10/10/2007. Renal ultrasound 09/28/2015. TECHNIQUE: Multidetector volumetric CT imaging of the chest, abdomen and pelvis was obtained without oral or intravenous contrast. Coronal and sagittal reformatted images are performed at the CT scanner. DLP: 904.00 mGy-cm FINDINGS: CT CHEST: Lungs: Asymmetric elevation of left diaphragm compared to right. Linear atelectasis at left lung base. No infiltrate. Central bronchial airways are open. Mediastinum: No bulky adenopathy. There are few small shotty lymph nodes measuring less than 1 cm in diameter at the pretracheal retrovascular space and the AP window. There is no pericardial effusion. There is vascular wall calcification of aorta and coronary arteries. Status post median sternotomy. Pleura: There is no pleural effusion. No pleural mass or thickening. Axilla: No lymphadenopathy. CT ABDOMEN AND PELVIS: Liver, Gallbladder, and Biliary Tree: Sharply marginated lobular hypodense lesion with linear calcifications again seen at the inferior posterior right lobe of liver, segment 6. This is unchanged since CAT scan 09/26/2015. No suspicious liver lesions. No intrahepatic bile duct dilatation. Small gallstones layering dependently in the gallbladder that are calcified. No edema around the gallbladder or gallbladder wall thickening. Pancreas: No acute change of the pancreas. No mass. No pancreatic duct dilatation. Spleen: Spleen normal in size and contour. No focal lesion. Adrenal Glands: Stable 2.4 cm left adrenal nodule unchanged since CAT scan 10/10/2007. Right adrenal gland normal. Kidneys and Ureters: Stable mild diffuse cortical thinning and atrophy of the right kidney. Right kidney measures 9 cm in length. Left kidney measures 11.6 cm. Stable bilateral multiple renal cysts. This includes ovoid lesion in the left parapelvic region from a hyperdense parapelvic cyst. This was demonstrated to be a cyst on the ultrasound exam of 09/28/2015. There is no hydronephrosis. No renal or ureteral calculi. Bladder: Unremarkable. Gastrointestinal Tract: Status post anastomosis at the mid sigmoid. There is diverticulosis of the descending colon. No diverticulitis. No acute change of the bowel. No bowel obstruction. No bowel wall thickening or edema. The appendix is normal. The small bowel loops are normal. Mesentery: No focal inflammation. No free fluid. No free air. Abdominal Wall: Small bilateral fat-containing inguinal hernia. Lymph Nodes: Normal. Vascular: Extensive atherosclerotic vascular wall calcifications throughout the abdomen and pelvis. No aneurysm of the aorta. Pelvic Viscera: Prostate measures 5.4 cm transverse. Osseous Structures: Multilevel degenerative spondylosis of the spine. Multilevel vacuum disc phenomena throughout the lumbar spine. Dextroscoliosis of the mid lumbar spine. IMPRESSION: 1. Asymmetric elevation of left diaphragm compared to right. Atelectasis at left lung base. No acute change of the chest. 2. Stable cystic lesion inferior right lobe of liver. No suspicious liver lesion. 3. Cholelithiasis without acute change of gallbladder wall. 4. Atrophic right kidney. Bilateral renal cysts. No acute abnormality of kidneys. 5. Diverticulosis of colon without acute change of bowel. Status post prior surgical anastomosis at sigmoid colon intact. 6. Stable left adrenal lesion. DICTATED BY: Norberto Matt MD DATE/TIME DICTATED:07/19/171705 MAIL SERVICE COORDINATOR :ROBERT DATE/TIME TRANSCRIBED:07/19/171705 CONFIDENTIAL, DO NOT COPY WITHOUT APPROPRIATE AUTHORIZATION., PATIENT: IRIS DREW SR PRESENT AGE: 87 PATIENT ACCOUNT NO: [id number] : 31 LOCATION: [facility] ORDERING PHYSICIAN: Matthew ARNOLD SERVICE DATE: 07/19/17 EXAM TYPE : US - US-LIMITED ABDOMEN EXAMINATION: ABDOMINAL ULTRASOUND LIMITED CLINICAL INFORMATION: Jaundice. Elevated bilirubin. Follow-up abnormal exam. COMPARISON: Same day abdominal and pelvic CT. TECHNIQUE: Real-time imaging of the right upper quadrant abdominal viscera. FINDINGS: PANCREAS: The visualized pancreatic head and body are normal in appearance. The remainder of the pancreas is obscured from visualization by the overlying bowel gas. LIVER: The liver is of normal size and mildly heterogeneous echogenicity without intrahepatic biliary ductal dilation. There is a 4.8 cm cyst within the right lobe with a thin septation and likely peripheral calcification. GALLBLADDER: There are several small calculi within the gallbladder lumen without wall thickening or pericholecystic fluid. COMMON BILE DUCT: Normal in caliber measuring 0.4 cm in diameter. RIGHT KIDNEY: The right kidney is not well demonstrated. FREE FLUID: None. IMPRESSION: Liver of mildly heterogeneous echogenicity. No intrahepatic biliary ductal dilation. 4.8 cm cyst within the right lobe with peripheral calcification. Cholelithiasis without evidence of cholecystitis. DICTATED BY: Brian Suggs MD DATE/TIME DICTATED:07/19/172014 MAIL SERVICE COORDINATOR:ROBERT DATE/TIME TRANSCRIBED:07/19/172014 CONFIDENTIAL, DO NOT COPY WITHOUT APPROPRIATE AUTHORIZATION. CXR Impression: PATIENT: IRIS DREW PRESENT AGE: 87 PATIENT ACCOUNT NO: [id number] : 31 LOCATION: [facility] ORDERING PHYSICIAN: Matthew ARNOLD SERVICE DATE: 07/19/17 EXAM TYPE: RAD - XRY- PORTABLE CHEST XRAY EXAMINATION: XR PORTABLE CHEST CLINICAL INFORMATION: 87-year -old male patient with syncope and CHF. COMPARISON: Last chest x-ray done 05/03/ 2017. CT of the chest the same day. TECHNIQUE: Portable AP semierect view of the chest was obtained. FINDINGS: There is no definite evidence of pulmonary edema or consolidating pneumonia. The left lower lobe is difficult to assess due to the chronic elevation of left hemidiaphragm. An area of linear subsegmental atelectasis is noted in the left lung above the elevated diaphragm. Sternotomy wires are in place. The heart is enlarged. IMPRESSION: No definite evidence of pulmonary edema at this time. Elevated left hemidiaphragm, chronic. Mediastinum is difficult to assess with this technique. DICTATED BY: Eddi Nesbitt MD DATE/TIME DICTATED:07/19/171531 MAIL SERVICE COORDINATOR:ROBERT DATE/TIME TRANSCRIBED:07/19/171531 CONFIDENTIAL, DO NOT COPY WITHOUT APPROPRIATE AUTHORIZATION. Initial ED EKG: NORMAL SINUS RHYTHM, FIRST-DEGREE av BLOCK, BORDERLINE t ABNORMALITIES ANTERIOR LATERAL LEADS (Shabbir ARNOLD,Matthew) Plan of Care: Orders Procedure Date/time Status Nothing by Mouth 07/20 B Active Code Status 07/19 1924 Active Patient Data 07/19 1919 Active ED Holding Orders 07/19 191 Active Admit to inpatient 07/19 191 Active Vital Signs 07/19 1910 Active Add-on Test (ER Only) 07/19 1854 Active AMMONIA 07/19 1853 Complete Add-on Test (ER Only) 07/19 1848 Active Add-on Test (ER Only) 07/19 1825 Active Intake & Output 07/19 1705 Active Add-on Test (ER Only) 07/19 1624 Active LIPASE 07/19 1546 Active HEPATITIS PANEL 07/19 1546 Active FERRITIN 07/19 1546 Active SERUM IRON 07/19 1546 Active DIRECT BILIRUBIN 07/19 1546 Active AMYLASE 07/19 1546 Active Add-on Test (ER Only) 07/19 1453 Active B-TYPE NATRIURETIC PEP (BNP) 07/19 1440 Active PARTIAL THROMBOPLASTIN TIME 07/19 1432 Complete PROTHROMBIN TIME 07/19 1432 Complete LACTIC ACID 07/19 1432 Complete TYPE & SCREEN (NOT X-MATCH) 07/19 1432 Complete COMPREHENSIVE METABOLIC PANEL 07/19 1425 Active CBC WITHOUT DIFFERENTIAL 07/19 1425 Complete EKG 07/19 1424 Active Laboratory Tests 07/19/17 1900: Ammonia 30 07/19/17 1732: Lactic Acid Cancelled 07/19/17 1546: Lactic Acid 1.1 07/19/17 1546: Anion Gap 21 H, Estimated GFR 7 L, BUN/Creatinine Ratio 10.9, Glucose 111 H, Calcium 8.2 L, Iron Pending, Ferritin Pending, Total Bilirubin 9.3 H, Direct Bilirubin 8.6 H, AST 98 H, ALT 110 H, Alkaline Phosphatase 354 H, Pro-B- Natriuretic Pept 36089 H, Total Protein 6.1 L, Albumin 3.4 L, Globulin 2.7, Albumin/Globulin Ratio 1.3, Amylase 137 H, Lipase 353 H, PT 14.1 H, INR 1.35 H, APTT 38 H, Hepatitis A IgM Ab Pending, Hep Bs Antigen Pending, Hep B Core IgM Ab Conf Pending, Hepatitis C Antibody Pending 07/19/17 1440: CBC w Diff NO MAN DIFF REQ, RBC 2.83 L, MCV 90.6, MCH 31.3 H, RDW 17.6 H, MPV 9.1, Gran % 81.3 H, Lymphocytes % 10.6 L, Monocytes % 7.0, Eosinophils % 1.1, Basophils % 0, Absolute Granulocytes 3.8, Absolute Lymphocytes 0.5 L, Absolute Monocytes 0.3, Absolute Eosinophils 0.1, Absolute Basophils 0, PUBS MCHC 34.6 Patient seen and evaluated. He currently is jaundiced borderline hypotensive on arrival with an oxygen saturations 90 ON ROOM AIR. He was placed on 2 L nasal cannula with good effect. He was also given a 500 mL bolus with improvement in his pressures. Rectal exam is positive for melena. Patient does receive iron infusion this may be contributed to the blackness however he is still heme positive. No gross blood. Patient had a syncopal episode and needs to be considered this may be due to acute blood loss. His abdomen is soft and nontender. Lungs are clear. Blood work shows that his hemoglobin is stable. He denies any chest pain or shortness of breath. Patient missed dialysis today Nephrology is aware they will dialyze him tomorrow. Potassium is stable. Patient's total bilirubin is elevated to 9.3. She has mildly elevated AST ALT and an elevated alkaline phosphatase. CT scan of the chest abdomen or pelvis does not show any acute findings. An ultrasound of the right upper quadrant was ordered for further evaluation. Additionally direct bilirubin, ammonia, iron, ferritin were ordered. Spoke with Dr. England from GI he is aware and recommends Protonix for now. He will consult on the patient. Patient will require admission to the hospital for further evaluation and treatment. Case discussed with Dr. Lucas he agrees. (Matthew Mcleod) (Sean Lucas MD) Departure Departure Disposition: STILL A PATIENT Condition: Stable Clinical Impression Primary Impression: GI bleeding Qualifiers: GI bleed type/associated pathology: melena Qualified Code: K92.1 - Melena Secondary Impressions: Jaundice Syncope Qualifiers: Syncope type: unspecified Qualified Code: R55 - Syncope and collapse Referrals: Pricila Duong APRN (PCP/Family) Departure Forms: Customer Survey General Discharge Information Admission Note Spoke With: Sebastián Camacho MD Documentation of Exam: Documentation of any treatments & extenuating circumstances including Concerns Regarding Discharge (functional status, medication knowledge or non-compliance, living conditions, etc.) that warrant an admission rather than observation: [ Patient has multiple medical problems including GI bleeding, syncope and elevated bilirubin. He will require telemetry monitoring, GI consult, nephrology consult, dialysis, serial labs, monitoring of vital signs, gentle IV hydration] (Matthew Mcleod) PA/DAIRY HELPER Co-Sign Statement Statement: ED Attending supervision documentation- [x] I saw and evaluated the patient. I have also reviewed all the pertinent lab results and diagnostic results. I agree with the findings and the plan of care as documented in the PA's/DAIRY HELPER's documentation. Patient presents for evaluation of jaundice generalized weakness at home. Physical examination reveals an awake and alert but jaundiced-appearing gentleman in no acute respiratory distress. [] I have reviewed the ED Record and agree with the PA's/DAIRY HELPER's documentation. [] Additions or exceptions (if any) to the PAs/DAIRY HELPER's note and plan are summarized below: [] (Shayy BAIN,Sean Latham) Critical Care Note Critical Care Note Critical Care Time: non-applicable (Matthew Mcleod)
--- NOTE | 2017-07-19 15:38 | RADIOLOGY REPORT ---
EXAMINATION: XR PORTABLE CHEST CLINICAL INFORMATION: 87-year-old male patient with syncope and CHF. COMPARISON: Last chest x-ray done 11/02/2016. CT of the chest the same day. TECHNIQUE: Portable AP semierect view of the chest was obtained. FINDINGS: There is no definite evidence of pulmonary edema or consolidating pneumonia. The left lower lobe is difficult to assess due to the chronic elevation of left hemidiaphragm. An area of linear subsegmental atelectasis is noted in the left lung above the elevated diaphragm. Sternotomy wires are in place. The heart is enlarged. IMPRESSION: No definite evidence of pulmonary edema at this time. Elevated left hemidiaphragm, chronic. Mediastinum is difficult to assess with this technique.
[2017-07-19 16:32] LABS: PT 14.1 SEC (9.4-12.5); PTT 38 SEC (25-37)
--- NOTE | 2017-07-19 17:43 | CT SCAN REPORT ---
EXAMINATION: CT CHEST, ABDOMEN AND PELVIS WITHOUT CONTRAST CLINICAL INFORMATION: Pneumonia. Cholecystitis. Pancreatitis. Malignancy. Syncope. Jaundice. Elevated bilirubin. COMPARISON: Portable chest 07/19/2017. CT chest 08/22/2016. CT abdomen and pelvis 09/26/2015, 10/10/2007. Renal ultrasound 09/28/2015. TECHNIQUE: Multidetector volumetric CT imaging of the chest, abdomen and pelvis was obtained without oral or intravenous contrast. Coronal and sagittal reformatted images are performed at the CT scanner. DLP: 904.00 mGy-cm FINDINGS: CT CHEST: Lungs: Asymmetric elevation of left diaphragm compared to right. Linear atelectasis at left lung base. No infiltrate. Central bronchial airways are open. Mediastinum: No bulky adenopathy. There are few small shotty lymph nodes measuring less than 1 cm in diameter at the pretracheal retrovascular space and the AP window. There is no pericardial effusion. There is vascular wall calcification of aorta and coronary arteries. Status post median sternotomy. Pleura: There is no pleural effusion. No pleural mass or thickening. Axilla: No lymphadenopathy. CT ABDOMEN AND PELVIS: Liver, Gallbladder, and Biliary Tree: Sharply marginated lobular hypodense lesion with linear calcifications again seen at the inferior posterior right lobe of liver, segment 6. This is unchanged since CAT scan 09/26/2015. No suspicious liver lesions. No intrahepatic bile duct dilatation. Small gallstones layering dependently in the gallbladder that are calcified. No edema around the gallbladder or gallbladder wall thickening. Pancreas: No acute change of the pancreas. No mass. No pancreatic duct dilatation. Spleen: Spleen normal in size and contour. No focal lesion. Adrenal Glands: Stable 2.4 cm left adrenal nodule unchanged since CAT scan 10/10/2007. Right adrenal gland normal. Kidneys and Ureters: Stable mild diffuse cortical thinning and atrophy of the right kidney. Right kidney measures 9 cm in length. Left kidney measures 11.6 cm. Stable bilateral multiple renal cysts. This includes ovoid lesion in the left parapelvic region from a hyperdense parapelvic cyst. This was demonstrated to be a cyst on the ultrasound exam of 09/28/2015. There is no hydronephrosis. No renal or ureteral calculi. Bladder: Unremarkable. Gastrointestinal Tract: Status post anastomosis at the mid sigmoid. There is diverticulosis of the descending colon. No diverticulitis. No acute change of the bowel. No bowel obstruction. No bowel wall thickening or edema. The appendix is normal. The small bowel loops are normal. Mesentery: No focal inflammation. No free fluid. No free air. Abdominal Wall: Small bilateral fat-containing inguinal hernia. Lymph Nodes: Normal. Vascular: Extensive atherosclerotic vascular wall calcifications throughout the abdomen and pelvis. No aneurysm of the aorta. Pelvic Viscera: Prostate measures 5.4 cm transverse. Osseous Structures: Multilevel degenerative spondylosis of the spine. Multilevel vacuum disc phenomena throughout the lumbar spine. Dextroscoliosis of the mid lumbar spine. IMPRESSION: 1. Asymmetric elevation of left diaphragm compared to right. Atelectasis at left lung base. No acute change of the chest. 2. Stable cystic lesion inferior right lobe of liver. No suspicious liver lesion. 3. Cholelithiasis without acute change of gallbladder wall. 4. Atrophic right kidney. Bilateral renal cysts. No acute abnormality of kidneys. 5. Diverticulosis of colon without acute change of bowel. Status post prior surgical anastomosis at sigmoid colon intact. 6. Stable left adrenal lesion.
[2017-07-19] MEDS ORDERED: NEURONTIN300 M1 PO (18:16)
[2017-07-19] MEDS ORDERED: LABETALOL HCL300 M1 PO (18:17)
[2017-07-19] MEDS ORDERED: ISOSORBIDE MONO10 M1 PO (18:17)
[2017-07-19] MEDS ORDERED: VITAMIN E400 UNI1 PO (18:18)
[2017-07-19] MEDS ORDERED: DULOXETINE HCL30 MG PO (18:19)
[2017-07-19] MEDS ORDERED: LIDOCAINE1 EACH TOP (18:19)
--- NOTE | 2017-07-19 20:21 | ULTRASOUND REPORT ---
EXAMINATION: ABDOMINAL ULTRASOUND LIMITED CLINICAL INFORMATION: Jaundice. Elevated bilirubin. Follow-up abnormal exam. COMPARISON: Same day abdominal and pelvic CT. TECHNIQUE: Real-time imaging of the right upper quadrant abdominal viscera. FINDINGS: PANCREAS: The visualized pancreatic head and body are normal in appearance. The remainder of the pancreas is obscured from visualization by the overlying bowel gas. LIVER: The liver is of normal size and mildly heterogeneous echogenicity without intrahepatic biliary ductal dilation. There is a 4.8 cm cyst within the right lobe with a thin septation and likely peripheral calcification. GALLBLADDER: There are several small calculi within the gallbladder lumen without wall thickening or pericholecystic fluid. COMMON BILE DUCT: Normal in caliber measuring 0.4 cm in diameter. RIGHT KIDNEY: The right kidney is not well demonstrated. FREE FLUID: None. IMPRESSION: Liver of mildly heterogeneous echogenicity. No intrahepatic biliary ductal dilation. 4.8 cm cyst within the right lobe with peripheral calcification. Cholelithiasis without evidence of cholecystitis.
--- NOTE | 2017-07-19 20:43 | Cons- Gastroenterology ---
General Information and HPI Consulting Request Date of Consult: 07/19/17 Requested By: Sebastián Camacho MD Reason for Consult: I was called by the [facility] this p.m. to assess chronic, stable anemia in a patient with ESRD on HD, OB+ stool, & elevated LFTs. *The pt was initially seen in the ER, room#20, & then later, in the ICU, room #101, in the presence of his , Andrea. *Extensive records reviewed. Source of Information: patient, family (), old records Exam Limitations: pt is fair hx, PAIUTE-SHOSHONE History of Present Illness: 87 y/o male, full code, with numerous co-morbidities, remotely seen by myself in inpt GI consultation 10/02/15, with intermittent OB+ stool, not c/w outpt PillCam (*see below), post multiple EGD/colonoscopy/push enteroscopy, CKD & HD- dependent since spring 2016 (post LUE AVF 12/01/16), who presented to the [place] ER 07/19/17, BIBA with syncope (witnessed by his , Andrea), hypoxia, urinary & fecal incontinence (no witnessed seizure), history of falls, fatigue, nasal congestion, symptoms of URI with cough productive of brown sputum, found to be yellow with elevated LFTs. He denied any fevers, chills, rashes, myalgias , or acute arthralgias (aside from DJD). 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 When he was incontinent, the stools were "dark" without gross BRB or hematemesis. The stools were OB positive in the ER, without fresh blood. They were later dark brown, trace OB positive, on my digital exam . Upon arrival to the [facility] 07/19/17 at 2:06 p.m., BP 92/50, P 76, R 20, T 97.5, O2 sat RA 90%, improving to 95% on 2L nc. His BP improved after IVF. He last had HD 07/17/17 & missed his HD slot 07/19/17, due to the above. He denied any nausea, vomiting, abdominal pain, early satiety, constipation, obstipation, tenesmus, or rectal bleeding. The mild diarrhea had resolved. He was on baby aspirin 81 mg daily. He denied any NSAIDs or Plavix. Regarding the dark stool, he was on iron, although apparently this was switched to IV Fe & EPO. He was not on any Pepto-Bismol. He was told he looked yellow at HD on . His GB was intact. He denied any dark urine, light stool, or pruritus. He currently denied any confusion, although he was slightly confused after the syncopal event, according to his . There was no documented head trauma or abdominal trauma. His GI ROS from above & below were otherwise negative. The patient was taking approximately 2 g of Tylenol daily. He had been off Percocet for some time. He denied any new medications or herbal medications, aside from low dose Vitamin E 400 IU daily, rxd by renal in 06/2017. He denied any additional OTC medications. He was subsequently found to have 07/19/17: *influenza type A His outpatient medication list included baby ASA, Amlodipine, Colace, Labetalol, vitamin D, isosorbide, Renvela, TORIBIO, Senokot, Colace, Atorvastatin, Vit E, Lidocaine patch, Tylenol, & Miralax. He denied any history of viral hepatitis. Apparently, he was recently started on Hep A & B vaccination series. He denied any EtOH, illicit street drugs, or IVDA. He had been transfused in the past. There was no gross hematuria, epistaxis, gum bleeding, or hemoptysis. He denied any chest pain or shortness of breath. Regarding the LFTs, there is no family history of any inherited liver disease or IBD. There is a positive family history of colon CA (pt's M- 58), & positive family history of colon adenoma (pt's dtr, Jessica). The patient's other numerous issues include prior rx narcotic-induced encephalopathy, which cleared after Narcan, chronic left chest wall pain post shingles, *chronic Fe def anemia, HTN, HLD, & ASHD post CABG 5 in 2000, PAIUTE-SHOSHONE, history of complex right-sided hepatic cysts, chronic low back pain with indwelling neurostimulator low back 05/2015, neuropathy, history of sciatica, diverticulosis coli, DJD, knee replacement, surgery, hypothyroid, carpal repair, , CHF, pulmonary HTN, ROBYN on O2-2L nc hs. 03/10/08: EGD- mild esophagitis, J-shaped stomach, H. pylori negative gastritis 10/24/07: Sigmoid resection by Dr. 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 There was no residual colon cancer found surgically, with negative lymph nodes. 09/25/07: PET- negative. 04/27/09: Colonoscopy to cecum- rectal telangiectasias of unknown etiology with clean anastomosis at 23 cm, left-sided diverticula plus removal of 2 benign tubular adenomas. 12/11/14: CEA 1.7, Fe sat 2.4%, ferritin 10.2. 12/19/14: *low IgA 78, tTG Ab- neg, DGP Ab- neg. 01/08/15: *Combined upper endoscopy to the third portion of the duodenum with biopsy, plus colonoscopy to the cecum with biopsies- normal esophageal mucosa with a minimally irregular Z-line at 40 cm, and a somewhat J-shaped stomach. Biopsy of 2 x 2 mm excrescences at the lesser curvature of the stomach- mild chronic fundic gastritis, H. pylori negative. Random biopsies of the second and third portions of the duodenum- no significant villous blunting (nothing on biopsies to suggest celiac sprue), mild chronic duodenitis, slightly nodular duodenal bulb showing Renzo gland hypertrophy and focal gastric metaplasia. Moderate left-sided diverticula, post sigmoid resection with a clean anastomosis at 23 cm, multiple sessile 5 mm polyps removed via cold biopsies, including one from the right colon showing benign tubular adenoma, two from the transverse colon showing benign sessile serrated polyp/adenoma, biopsy of the left colon unremarkable, biopsy of a small rectal polyp at 10 cm- benign hyperplastic polyp with focal sessile serrated polyp/adenoma. 05/30/15: normal LFTs, decreased ferritin 11.5, iron 24, TIBC 415, Fe sat 5.8%. 07/22/2015: normal SPEP/IPEP. 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 10/02/15: EGD to jejunum (160 cm from the incisors) with pedicolon- 1. Superficial antral erosions, without any active bleeding. 2. Superficial erosions in the duodenal bulb, without any active bleeding. 3. Clot washed clear from the post bulbar region, with normal-appearing underlying mucosa. 4. Slightly J-shaped stomach. 5. Otherwise, negative study to the jejunum. [The patient was endoscoped 3 times, with the single channel scope, the double channel scope, and the pediatric colonoscope from above, down to the jejunum, 160 cm from the incisors]. *The pt subsequently refused outpt PillCam multiple times (rule out angiodysplasias associated with CKD and/or ). The pt was most recently admitted to [place] 10/28/16 - 11/08/16, for acute on chronic respiratory failure, multifactorial volume overload, CKD, & normocytic anemia-> EPO. 09/06/16: *HIV- neg. 09/07/16: *Hep A Ab, Hep Bs Ag, Hep B core Ab, Hep C Ab- all neg. 07/19/17: Admission labs- WBC 4.7, H/H 8.9/25.6, MCV 90.6, RDW 17.6, PLT 239, PT 14.1, INR 1.35, PTT 38, glucose 111, BUN/Cr 81/7.4, GFR 7, Na 141, K 4.9, HCO3 19, AG 21, lactate 1.1, Ca 8.2, amylase/lipase 137/353, albumin 3.4, globulin 2.7, *TBil 9.3, DBil 8.6, alk phos 354, AST 98, ALT 110, nl NH3 30, [Tylenol] < 10; Fe 45 (? no TIBC), ferritin 497, BNP 25,300, *troponin- pending, *Hep A, B, & C serologies- pending. 07/19/17: *Rapid viral influenza A/B: + influenza Type A. 07/19/17: EKG- NSR @ 76, 1st degree AVB, NJ .261, normal axis (V3 missing), NSST flattening. 07/19/17: XRY-PORTABLE CHEST XRAY- No definite evidence of pulmonary edema at this time. Elevated left hemidiaphragm, chronic. Mediastinum is difficult to assess with this technique. 07/19/17: CT CHEST, ABDOMEN AND PELVIS WITHOUT CONTRAST- 1. Asymmetric elevation of left diaphragm compared to right. Atelectasis at left lung base. No acute change of the chest. 2. Stable cystic lesion inferior right lobe of liver. No suspicious liver lesion. No ascites. 3. Cholelithiasis without acute change of gallbladder wall. No dilated ducts. 4. Atrophic right kidney. Bilateral renal cysts. No acute abnormality of kidneys. 5. Diverticulosis of colon without acute change of bowel. Status post prior surgical anastomosis at sigmoid colon intact. 6. Stable left adrenal lesion. 7. Small B/L IH. 8. DJD. Dextroscoliosis mid-L spine. 07/19/17: RUQ ABDOMINAL ULTRASOUND (LIMITED)- Liver of mildly heterogeneous echogenicity. No intrahepatic biliary ductal dilation. CBD 4 mm. Old 4.8 cm cyst within the right lobe with peripheral calcification. Cholelithiasis without evidence of cholecystitis. 07/19/17: CT HEAD WO IV CONTRAST- No evidence for acute intracranial injury. Age-appropriate appearance of the brain. Allergies/Medications Allergies: Coded Allergies: NO KNOWN ALLERGIES (09/28/15) Home Med List: Amlodipine Besylate (Norvasc) 10 MG TABLET 10 MG PO DAILY HTN Aspirin (Aspirin*) 81 MG TAB.CHEW 1 TAB PO DAILY cad Atorvastatin Calcium 20 MG TABLET 1 TAB PO DAILY CHOLESTEROL (Reported) Cholecalciferol (Vitamin D3) (Vitamin D) 1,000 UNIT TABLET 1 TAB PO DAILY SUPPLEMENT (Reported) Docusate Sodium (Colace) 100 MG CAPSULE 1 CAP PO BID STOOL SOFTENER (Reported ) Duloxetine HCl (Unknown Strength) CAPSULE.DR (Unknown Dose) UNKNOWN (Reported ) Epoetin Earnest (Procrit) 40,000 UNIT/ML VIAL 40,000 UNIT SC Q2W ANEMIA ( Reported) Gabapentin (Neurontin) 300 MG CAPSULE 1 CAP PO QPM NEUROPATHY (Reported) Isosorbide Mononitrate 10 MG TABLET 1 TAB PO BID HEART (Reported) Labetalol HCl 300 MG TABLET 1 TAB PO QAM BP (Reported) Labetalol HCl 300 MG TABLET 150 MG PO QPM BP (Reported) Levothyroxine Sodium 50 MCG TABLET 1 TAB PO DAILY THYROID (Reported) Lidocaine 5 % ADH..PATCH 1 PAT TOP DAILY PAIN (Reported) Nephro-Vitamins (Nephro-Becca Tablet) 0.8 MG TABLET 1 TAB PO DAILY esrd Sennosides (Senokot) 8.6 MG TABLET 1 TAB PO DAILY GI (Reported) Sevelamer Carbonate (Renvela) 800 MG TABLET 1 TAB PO WM ESRD Vitamin E (Dl,Tocopheryl Acet) (Vitamin E) 400 UNIT CAPSULE 1 CAP PO DAILY SUPPLEMENT (Reported) Current Medications: Current Medications Sig/Tiffanie Start time Last Medication Dose Route Stop Time Status Admin Aspirin 81 MG DAILY 07/20 1000 AC PO Atorvastatin Calcium 20 MG DAILY 07/20 1000 AC PO Cholecalciferol 1,000 IU DAILY 07/20 1000 AC PO Gabapentin 300 MG QPM 07/20 2200 AC PO Gabapentin 300 MG ONCE ONE 07/20 0030 DC PO 07/20 0031 Ibuprofen 400 MG Q6P PRN 07/19 2230 AC PO Levothyroxine Sodium 0.05 MG DAILY 07/20 1000 AC PO Oseltamivir Phosphate 30 MG 2200 07/20 0001 AC 07/20 PO 07/24 0000 0040 Pantoprazole Sodium 40 MG DAILY 07/20 1000 AC IV Pantoprazole Sodium 0 .STK-MED ONE 07/19 1553 DC IV Pantoprazole Sodium 40 MG ONCE ONE 07/19 1545 DC 07/19 IV 07/19 1546 1554 Sevelamer Carbonate 800 MG WM 07/20 0800 AC PO Sodium Chloride 500 ML BOLUS ONE 07/19 1500 DC 07/19 IV 07/19 1559 1500 Vitamin E 400 IU DAILY 07/20 1000 AC PO Past History Travel History Traveled to [place] past 21 day No Medical History Blood Transfusion Hx: Yes Neurological: shingles left chest wall dermatome EENT: hearing loss Cardiovascular: CAD (s/p CABG x 5), diastolic CHF, hypertension, hyperlipidemia Respiratory: pneumonia, pulmonary hypertension Gastrointestinal: NONE (sigmoid resection Diaz A Ca), diverticulosis coli, HP- neg gastritis Hepatic: NONE Renal: chronic kidney disease (on HD) Musculoskeletal: osteoarthritis, TKR, neurostim low back, back surgery, CTS Psychiatric: NONE Endocrine: hypothyroidism Blood Disorders: anemia (hx Fe def/B12 def) Cancer(s): colon/rectal cancer 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 FATHER, , Age 70; Cause: Myocardial infarction. Relation not specified for: colon cancer in mother Psychosocial History Where Do You Live? Home Who Do You Live With? spouse, child (2 sons) Services at Home: Nursing, Oxygen, Physical Therapy Primary Language: Omani Smoking Status: Former Smoker ETOH Use: denies use Illicit Drug Use: denies illicit drug use Living Will? no Power of Complex Case Manager/HCP? no Other Social History: to Andrea. 4 Children (3 sons & 1 dtr- 1 of the sons had TBI, another son had CVA at age 49, in the setting of PVD/smoking/hypertension). None of the patient's sons ages 50, 52, and 54 had baseline screening colonoscopy, despite the positive family history. Their daughter, Heriberto Lopez, had small benign TA removed in 05/2011. Ex > 125 pack year smoker, stopped in 1975. 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 No EtOH. No drugs. Functional Ability ADLs Independent: dressing, eating, toileting, bathing. Ambulation: independent IADLs Independent: food prep, telephone. Needs Assist: shopping, housework, finances, transportation, medication admin. 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 Review of Systems Constitutional: Reports: malaise, weakness. Denies: chills, diaphoresis, fever, unexplained weight loss. EENTM: Reports: hearing changes. Denies: no symptoms (nasal congestion), blurred vision, double vision, visual changes, eye pain, eye drainage, eye tearing, icterus, ear discharge, ear pain, ear redness, nasal congestion, epistaxis, nasal pain, throat pain, throat swelling, mouth pain, tooth pain. Cardiovascular: Reports: peripheral edema (trace), syncope. Denies: chest pain, edema, orthopena, palpitations. Respiratory: Reports: cough (brown sputum), sputum production. Denies: hemoptysis, orthopnea , short of breath, stridor, wheezing. GI: Reports: melena (? dark stool- resolved). Denies: abdominal pain, bloating, constipation, diarrhea, distention, bowel incontinence, nausea, bloody stool, changes in stool, vomiting, steatorrhea. Genitourinary: Denies: discharge, dysuria, frequency, hematuria, hesitation, nocturia, pain, urgency. Musculoskeletal: Reports: back pain (chronic), joint pain (DJD). Denies: gout, joint swelling, muscle pain, muscle stiffness, neck pain. Skin: Reports: jaundice. Denies: cysts, change in skin color, change in hair/nails, dryness, erythema, lesions, lymphangitis, lumps, moles, rash. Neurological/Psychological: Denies: no symptoms (hx neuropathy & hx falls), anxiety, ataxia, cognitive dysfunction, confusion, depressed, dementia, emotional problems, headache, numbness, paresthesia, pre-existing deficit, petit mal seizures, tingling, tremors, tonic-clonic seizures, unable to move lower ext, unable to move upper ext, weakness. Hematologic/Endocrine: Denies: bruising, bleeding, polyuria, polydipsia. Immunologic/Allergic: Denies: splenectomy, HIV/AIDS, lymphadenopathy. All Other Systems: Reviewed and Negative Exam & Diagnostic Data Vital Signs and I&O Vital Signs Date Time Temp Pulse Resp B/P B/P Pulse O2 O2 Flow FiO2 Mean Ox Delivery Rate 07/19 2200 95 Nasal 2.0L Cannula 07/19 2107 97.8 74 18 126/60 98 Nasal 2.0L Cannula 07/19 2000 75 18 128/58 96 Nasal 2.0L Cannula 07/19 1836 97.3 69 16 112/54 95 Nasal 2.0L Cannula 07/19 1705 82 16 113/59 94 Nasal 2.0L Cannula 07/19 1532 75 16 109/51 95 Nasal 2.0L Cannula 07/19 1500 95 Nasal 2.0L Cannula 07/19 1450 95 Nasal 2.0L Cannula 07/19 1450 97.5 76 20 92/50 90 Room Air Intake & Output 07/19 1600 07/19 0400 07/18 1600 07/18 0400 07/17 1600 07/17 0400 Intake Total Output Total Balance Patient 238 lb Weight Weight Reported by Patient Measurement Method Physical Exam: Well-developed, well-nourished, chronically ill appearing, obese male in mild distress. Sclera icteric. Conjunctiva slightly pale. Oropharynx clear. Poor dentition. There is no adenopathy, thyromegaly, or JVD. No peripheral stigmata of inflammatory bowel disease or chronic liver disease on exam. No spiders on the anterior chest wall. No CVA tenderness. No spine tenderness. Dextroscoliosis of mid-L spine. Tender left lateral chest wall (post-herpetic neuralgia), without gross zoster. Lungs: clear to A&P, with slight decreased BS at the left base. Heart exam: regular rate rhythm S1 and S2, with I/ systolic murmur. s/p CABG. Abdominal exam: normal bowel sounds, obese, soft belly, nontender, without guarding or rebound. Small B/L IH, otherwise, no mass. No organomegaly. Negative Mccauley sign. No fluid shift. No pulsatile mass. No epigastric bruit. Digital rectal exam done by myself 07/19/17: Dark brown stool (on iron), trace OB-positive, without mass. Smooth enlarged prostate. No nodules. No external hemorrhoids. No fissure. No bright red blood. Extremities: without cyanosis or clubbing. Trace pedal edema B/L. LUE AVF, with + thrill, + bruit. Positive DJD. No palpable cords. No palmar erythema. No Dupuytren's conttractures. Distal pulses 1+ bilaterally. DTRs 1+ bilaterally. Alert and oriented x 3, but slightly lethargic & PAIUTE-SHOSHONE. Right handed. Motor 4/5 B/ L. CN II-XII intact. No tremor. No asterixis. Results Pertinent Lab Results: Laboratory Tests 07/20 07/19 07/19 07/19 07/19 0020 1900 1732 1546 1546 Chemistry Sodium (137 - 145 mmol/L) 141 Potassium (3.5 - 5.1 mmol/L) 4.9 Chloride (98 - 107 mmol/L) 100 Carbon Dioxide (22 - 30 mmol/L) 19 L Anion Gap (5 - 16) 21 H BUN (9 - 20 mg/dL) 81 H Creatinine (0.7 - 1.2 mg/dL) 7.4 *H Estimated GFR (>60 ml/min) 7 L BUN/Creatinine Ratio (7 - 25 %) 10.9 Glucose (65 - 99 mg/dL) 111 H Lactic Acid (0.7 - 2.1 mmol/L) Cancelled 1.1 Calcium (8.4 - 10.2 mg/dL) 8.2 L Iron (49 - 181 ug/dL) 45 L Ferritin (17.9 - 464 ng/mL) 497.0 H Total Bilirubin (0.2 - 1.3 mg/dL) 9.3 H Direct Bilirubin (< 0.4 mg/dL) 8.6 H AST (17 - 59 U/L) 98 H ALT (21 - 72 U/L) 110 H Alkaline Phosphatase (< 127 U/L) 354 H Ammonia (9 - 30 umol/L) 30 Troponin I Pending [id number] Pept (<125 pg/mL) 76795 H Total Protein (6.3 - 8.2 g/dL) 6.1 L Albumin (3.5 - 5.0 g/dL) 3.4 L Globulin (1.9 - 4.2 gm/dL) 2.7 Albumin/Globulin Ratio (1.1 - 2.2 %) 1.3 Amylase (30 - 110 U/L) 137 H Lipase (23 - 300 U/L) 353 H Coagulation PT (9.4 - 12.5 SEC) 14.1 H INR (0.90 - 1.17) 1.35 H APTT (25 - 37 SEC) 38 H Hematology CBC w Diff Pending WBC Pending RBC Pending Hgb Pending Hct Pending MCV Pending MCH Pending RDW Pending Plt Count Pending MPV Pending PUBS MCHC Pending Serology Hepatitis A IgM Ab (NONREACTIVE) Pending Hep Bs Antigen (NONREACTIVE) Pending Hep B Core IgM Ab Conf (NONREACTIVE) Pending Hepatitis C Antibody (NONREACTIVE) Pending Toxicology Acetaminophen (10.0 - 30.0 ug/mL) < 10.0 L 07/19 1440 Hematology CBC w Diff NO MAN DIFF REQ WBC (4.8 - 10.8 /CUMM) 4.7 L RBC (4.70 - 6.10 /CUMM) 2.83 L Hgb (14.0 - 18.0 G/DL) 8.9 L Hct (42 - 52 %) 25.6 L MCV (80.0 - 94.0 FL) 90.6 MCH (27.0 - 31.0 PG) 31.3 H RDW (11.5 - 14.5 %) 17.6 H Plt Count (130 - 400 /CUMM) 239 MPV (7.4 - 10.4 FL) 9.1 Gran % (42.2 - 75.2 %) 81.3 H Lymphocytes % (20.5 - 51.1 %) 10.6 L Monocytes % (1.7 - 9.3 %) 7.0 Eosinophils % (0 - 5 %) 1.1 Basophils % (0.0 - 2.0 %) 0 Absolute Granulocytes (1.4 - 6.5 /CUMM) 3.8 Absolute Lymphocytes (1.2 - 3.4 /CUMM) 0.5 L Absolute Monocytes (0.10 - 0.60 /CUMM) 0.3 Absolute Eosinophils (0.0 - 0.7 /CUMM) 0.1 Absolute Basophils (0.0 - 0.2 /CUMM) 0 PUBS MCHC (33.0 - 37.0 G/DL) 34.6 Imaging/Other Studies: 07/19/17: EKG- NSR @ 76, 1st degree AVB, NJ .261, normal axis (V3 missing), NSST flattening. 07/19/17: XRY-PORTABLE CHEST XRAY- No definite evidence of pulmonary edema at this time. Elevated left hemidiaphragm, chronic. Mediastinum is difficult to assess with this technique. 07/19/17: CT CHEST, ABDOMEN AND PELVIS WITHOUT CONTRAST- 1. Asymmetric elevation of left diaphragm compared to right. Atelectasis at left lung base. No acute change of the chest. 2. Stable cystic lesion inferior right lobe of liver. No suspicious liver lesion. No ascites. 3. Cholelithiasis without acute change of gallbladder wall. No dilated ducts. 4. Atrophic right kidney. Bilateral renal cysts. No acute abnormality of kidneys. 5. Diverticulosis of colon without acute change of bowel. Status post prior surgical anastomosis at sigmoid colon intact. 6. Stable left adrenal lesion. 7. Small B/L IH. 8. DJD. Dextroscoliosis mid-L spine. 07/19/17: RUQ ABDOMINAL ULTRASOUND (LIMITED)- Liver of mildly heterogeneous echogenicity. No intrahepatic biliary ductal dilation. CBD 4 mm. Old 4.8 cm cyst within the right lobe with peripheral calcification. Cholelithiasis without evidence of cholecystitis. 07/19/17: CT HEAD WO IV CONTRAST- No evidence for acute intracranial injury. Age-appropriate appearance of the brain. Assessment/Plan Assessment/Recommendations: 87 y/o male, full code, with numerous co-morbidities, remotely seen by myself in inpt GI consultation 10/02/15, with intermittent OB+ stool, not c/w outpt PillCam (*see below), post multiple EGD/colonoscopy/push enteroscopy, CKD & HD- dependent since spring 2016 (post LUE AVF 12/01/16), who presented to the [place] ER 07/19/17, BIBA with syncope (witnessed by his , Andrea), hypoxia, urinary & fecal incontinence (no witnessed seizure), history of falls, fatigue, nasal congestion, symptoms of URI with cough productive of brown sputum, found to be yellow with elevated LFTs. He denied any fevers, chills, rashes, myalgias , or acute arthralgias (aside from DJD). 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 When he was incontinent, the stools were "dark" without gross BRB or hematemesis. The stools were OB positive in the ER, without fresh blood. They were later dark brown, trace OB positive, on my digital exam . Upon arrival to the [place] ER 07/19/17 at 2:06 p.m., BP 92/50, P 76, R 20, T 97.5, O2 sat RA 90%, improving to 95% on 2L nc. His BP improved after IVF. He last had HD 07/17/17 & missed his HD slot 07/19/17, due to the above. He denied any nausea, vomiting, abdominal pain, early satiety, constipation, obstipation, tenesmus, or rectal bleeding. The mild diarrhea had resolved. He was on baby aspirin 81 mg daily. He denied any NSAIDs or Plavix. Regarding the dark stool, he was on iron, although apparently this was switched to IV Fe & EPO. He was not on any Pepto-Bismol. He was told he looked yellow at HD on . His GB was intact. He denied any dark urine, light stool, or pruritus. He currently denied any confusion, although he was slightly confused after the syncopal event, according to his . There was no documented head trauma or abdominal trauma. His GI ROS from above & below were otherwise negative. The patient was taking approximately 2 g of Tylenol daily. He had been off Percocet for some time. He denied any new medications or herbal medications, aside from low dose Vitamin E 400 IU daily, rxd by renal in 06/2017. He denied any additional OTC medications. He was subsequently found to have 07/19/17: *influenza type A His outpatient medication list included baby ASA, Amlodipine, Colace, Labetalol, vitamin D, isosorbide, Renvela, TORIBIO, Senokot, Colace, Atorvastatin, Vit E, Lidocaine patch, Tylenol, & Miralax. He denied any history of viral hepatitis. Apparently, he was recently started on Hep A & B vaccination series. He denied any EtOH, illicit street drugs, or IVDA. He had been transfused in the past. There was no gross hematuria, epistaxis, gum bleeding, or hemoptysis. He denied any chest pain or shortness of breath. Regarding the LFTs, there is no family history of any inherited liver disease or IBD. There is a positive family history of colon CA (pt's M- 59), & positive family history of colon adenoma (pt's dtr, Jessica). The patient's other numerous issues include prior rx narcotic-induced encephalopathy, which cleared after Narcan, chronic left chest wall pain post shingles, *chronic Fe def anemia, HTN, HLD, & ASHD post CABG 5 in 2000, PAIUTE-SHOSHONE, history of complex right-sided hepatic cysts, chronic low back pain with indwelling neurostimulator low back 05/2015, neuropathy, history of sciatica, diverticulosis coli, DJD, knee replacement, surgery, hypothyroid, carpal repair, , CHF, pulmonary HTN, ROBYN on O2-2L nc hs. 09/10/07: EGD- mild esophagitis, J-shaped stomach, H. pylori negative gastritis 10/24/07: Sigmoid resection by Dr. 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 There was no residual colon cancer found surgically, with negative lymph nodes. 09/25/07: PET- negative. 04/27/09: Colonoscopy to cecum- rectal telangiectasias of unknown etiology with clean anastomosis at 23 cm, left-sided diverticula plus removal of 2 benign tubular adenomas. 12/11/14: CEA 1.7, Fe sat 2.4%, ferritin 10.2. 12/19/14: *low IgA 78, tTG Ab- neg, DGP Ab- neg. 01/08/15: *Combined upper endoscopy to the third portion of the duodenum with biopsy, plus colonoscopy to the cecum with biopsies- normal esophageal mucosa with a minimally irregular Z-line at 40 cm, and a somewhat J-shaped stomach. Biopsy of 2 x 2 mm excrescences at the lesser curvature of the stomach- mild chronic fundic gastritis, H. pylori negative. Random biopsies of the second and third portions of the duodenum- no significant villous blunting (nothing on biopsies to suggest celiac sprue), mild chronic duodenitis, slightly nodular duodenal bulb showing Renzo gland hypertrophy and focal gastric metaplasia. Moderate left-sided diverticula, post sigmoid resection with a clean anastomosis at 23 cm, multiple sessile 5 mm polyps removed via cold biopsies, including one from the right colon showing benign tubular adenoma, two from the transverse colon showing benign sessile serrated polyp/adenoma, biopsy of the left colon unremarkable, biopsy of a small rectal polyp at 10 cm- benign hyperplastic polyp with focal sessile serrated polyp/adenoma. 05/30/15: normal LFTs, decreased ferritin 11.5, iron 24, TIBC 415, Fe sat 5.8%. 07/22/2015: normal SPEP/IPEP. 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 10/02/15: EGD to jejunum (160 cm from the incisors) with pedicolon- 1. Superficial antral erosions, without any active bleeding. 2. Superficial erosions in the duodenal bulb, without any active bleeding. 3. Clot washed clear from the post bulbar region, with normal-appearing underlying mucosa. 4. Slightly J-shaped stomach. 5. Otherwise, negative study to the jejunum. [The patient was endoscoped 3 times, with the single channel scope, the double channel scope, and the pediatric colonoscope from above, down to the jejunum, 160 cm from the incisors]. *The pt subsequently refused outpt PillCam multiple times (rule out angiodysplasias associated with CKD and/or ). The pt was most recently admitted to [place] 10/28/16 - 11/08/16, for acute on chronic respiratory failure, multifactorial volume overload, CKD, & normocytic anemia-> EPO. 09/06/16: *HIV- neg. 09/07/16: *Hep A Ab, Hep Bs Ag, Hep B core Ab, Hep C Ab- all neg. 07/19/17: Admission labs- WBC 4.7, H/H 8.9/25.6, MCV 90.6, RDW 17.6, PLT 239, PT 14.1, INR 1.35, PTT 38, glucose 111, BUN/Cr 81/7.4, GFR 7, Na 141, K 4.9, HCO3 19, AG 21, lactate 1.1, Ca 8.2, amylase/lipase 137/353, albumin 3.4, globulin 2.7, *TBil 9.3, DBil 8.6, alk phos 354, AST 98, ALT 110, nl NH3 30, [Tylenol] < 10; Fe 45 (? no TIBC), ferritin 497, BNP 25,300, *troponin- pending, *Hep A, B, & C serologies- pending. 07/19/17: *Rapid viral influenza A/B: + influenza Type A. 07/19/17: EKG- NSR @ 76, 1st degree AVB, NJ .261, normal axis (V3 missing), NSST flattening. 07/19/17: XRY-PORTABLE CHEST XRAY- No definite evidence of pulmonary edema at this time. Elevated left hemidiaphragm, chronic. Mediastinum is difficult to assess with this technique. 07/19/17: CT CHEST, ABDOMEN AND PELVIS WITHOUT CONTRAST- 1. Asymmetric elevation of left diaphragm compared to right. Atelectasis at left lung base. No acute change of the chest. 2. Stable cystic lesion inferior right lobe of liver. No suspicious liver lesion. No ascites. 3. Cholelithiasis without acute change of gallbladder wall. No dilated ducts. 4. Atrophic right kidney. Bilateral renal cysts. No acute abnormality of kidneys. 5. Diverticulosis of colon without acute change of bowel. Status post prior surgical anastomosis at sigmoid colon intact. 6. Stable left adrenal lesion. 7. Small B/L IH. 8. DJD. Dextroscoliosis mid-L spine. 07/19/17: RUQ ABDOMINAL ULTRASOUND (LIMITED)- Liver of mildly heterogeneous echogenicity. No intrahepatic biliary ductal dilation. CBD 4 mm. Old 4.8 cm cyst within the right lobe with peripheral calcification. Cholelithiasis without evidence of cholecystitis. 07/19/17: CT HEAD WO IV CONTRAST- No evidence for acute intracranial injury. Age-appropriate appearance of the brain. Upon completion of the 07/19/17: GI consult, I felt that most likely, the patient's LFTs, which were more cholestatic > transaminitis, were most likely secondary to some systemic process, probably infectious in nature. The 07/19/17: *Rapid viral influenza A/B: + influenza Type A was noted, & perhaps this is the source. The patient was on no new medications to cause the above. He was on Atorvastatin, which usually causes more of a transaminitis than cholestasis. Amlodipine can cause hepatitis. The hypotension may have contributed to the LFTs , as well. I felt that his cholelithiasis was incidental in nature, without any cholecystitis, choledocholithiasis, or dilated ducts. His hepatic cyst was incidental as well. I felt that the yield of an MRCP would be low, and the patient has an implanted neurostimulator, probably prohibiting this. Admission [ Tylenol] < 10. *With regards to the anemia, which is chronic in nature, on my exam he had brown , trace OB positive stool. He has had an extensive GI workup for the above, including relatively recent EGD/colonoscopy/push enteroscopy to the jejunum. The patient was repeatedly noncompliant with a suggested outpt PillCam. He certainly could have small bowel angiodysplasias, which could be associated with CKD and/or (Heyde's syndrome). Clinically, I did not feel that he was actively GI bleeding to the point that would warrant a repeat EGD. He was hypotensive, which resolved. I did not think this was from the mildly OB positive stool, but rather from dehydration and possible sepsis. *SUGGEST: *Clears po then NPO after 11:59 p.m. for possible MRCP (yield of MRCP is low w/o dilated ducts, & neurostimulator probably prohibits this, anyway). If MRCP can't be done, advance diet as tolerated. *Await 07/19/17: *Hep A, B, & C serologies & troponin. *Hold Atorvastatin for now. For HD on 07/20/17, as patient missed his 07/19/17: HD slot. *Serial LFTs, INR, & CBC. Consider checking urine for Mycoplasma/Legionella Ag (atypical PNA can be associated with elevated LFTs). *Tamiflu (adjust dose if needed for CKD/HD). Consider checking EBV/CMV/mono spot (but would expect more of a transaminitis with this). Consider additional serologies (i.e.- DORA, AMA, etc.), but probably low yield. If LFTs persist, may ultimately need liver biopsy, but I anticipate these will gradually resolve. Follow-up CBC, but no plans for inpatient EGD, unless the patient actively bleeds. T&C 2u PRBC. Keep Hgb > 8 (hx ASHD). Empiric PPI. If anemia worsens, consider holding ASA 81 mg daily, if okay with cardiology. *Outpt PillCam, as patient allows. Continue IV Fe/EPO, per renal. Consider recheck B12 levels (previously low). *Avoid NSAIDS- (? Ibuprofen rxd as inpt). DVT prophylaxis with mechanical ALPS. Keep Tylenol to < 2g daily. Avoid hepatotoxins. By dates, one could consider a repeat colonoscopy in 12/2017, 3 years after his last study, in view of his hx colonic TA/SSP, personal hx colon Ca, & +FHx colon Ca. However, he will be 88 y/o then, & I don't feel this would be warranted by the risk:benefit ratio. Further GI recommendations to follow, depending on clinical course. The above was discussed with the medical house staff, the patient, & the patient's . 1 hour of ICU care was spent on the patient. Problem List: 1. Elevated LFTs 2. Hypotension 3. Influenza A 4. Syncope 5. Jaundice 6. Cholelithiasis 7. Hepatic cyst 8. Iron (Fe) deficiency anemia 9. Diverticulosis of colon 10. History of colon cancer 11. Positive occult stool blood test 12. Family history of colon cancer in mother Copies To: Siddhartha BAIN,Andrea Bird; Doug BAINSebastián; Aniyah BAIN,Pricila Perales APRN; Duane BAIN,Salvador Lawson; Rosey BAIN,Jay; Manuel BAIN,Dulce Maria Lawson Consult Acknowledgment - Thank you for your consult request.
--- NOTE | 2017-07-19 21:25 | History & Physical ---
General Information and HPI MD Statement: I have seen and personally examined IRIS DREW and documented this H&P. The patient is a 87 year old M who presented with a patient stated chief complaint of [Syncope]. Source of Information: patient, family, Patient's Exam Limitations: no limitations History of Present Illness: The patient is an 87-year-old man with a past medical history of CKD on hemodialysis Monday, day Monday (he missed Hemodialysis session today), aortic stenosis, heart failure with preserved ejection fraction, coronary artery disease status post CABG 5, pulmonary hypertension, hyperlipidemia, hypertension, hypothyroidism, osteoarthritis, colonic cancer status post resection and anastomosis and obstructive sleep apnea on nocturnal oxygen supplementation. His initial symptoms began 3 days ago when he developed nasal congestion with yellowish nasal discharge, night-time cough and with generalized weakness and loss of appetite. He had a low-grade fever of 100 Fahrenheit as measured by his 3 days ago. He also had intermittent episodes of black colored diarrhea (4 episodes on Monday-5 days ago and 3 episodes yesterday). Just this afternoon while he was sitting in the living room his noticed his PO2 to be 84%. And while she was walking with him back to the bedroom he had a syncopal episode and gradually slumped down to the ground sustaining an abrasion to his right arm. According to his , he was unresponsive for about 10 minutes while she placed him on oxygen by nasal cannula and called 911. He subsequently regained consciousness gradually and was brought into [facility] by ambulance. He denied chest pains, or palpitations prior to or after this episode. Of note, he had a similar unwitnessed syncopal episode one week ago and also had a remote history of syncope after climbing up a flight of stairs in his PCP's office around October 2016. Of recent, the patient was informed by his dialysis nurse that he had yellowish streaks on his dialysis filter. He denies dysuria, hematuria, headaches, numbness or tingling of any parts of the body along with weakness of any part of the body. Allergies/Medications Allergies: Coded Allergies: NO KNOWN ALLERGIES (09/28/15) Home Med list Amlodipine Besylate (Norvasc) 10 MG TABLET 10 MG PO DAILY HTN Aspirin (Aspirin*) 81 MG TAB.CHEW 1 TAB PO DAILY cad Atorvastatin Calcium 20 MG TABLET 1 TAB PO DAILY CHOLESTEROL (Reported) Cholecalciferol (Vitamin D3) (Vitamin D) 1,000 UNIT TABLET 1 TAB PO DAILY SUPPLEMENT (Reported) Docusate Sodium (Colace) 100 MG CAPSULE 1 CAP PO BID STOOL SOFTENER (Reported ) Duloxetine HCl (Unknown Strength) CAPSULE.DR (Unknown Dose) UNKNOWN (Reported ) Epoetin Earnest (Procrit) 40,000 UNIT/ML VIAL 40,000 UNIT SC Q2W ANEMIA ( Reported) Gabapentin (Neurontin) 300 MG CAPSULE 1 CAP PO QPM NEUROPATHY (Reported) Isosorbide Mononitrate 10 MG TABLET 1 TAB PO BID HEART (Reported) Labetalol HCl 300 MG TABLET 1 TAB PO QAM BP (Reported) Labetalol HCl 300 MG TABLET 150 MG PO QPM BP (Reported) Levothyroxine Sodium 50 MCG TABLET 1 TAB PO DAILY THYROID (Reported) Lidocaine 5 % ADH..PATCH 1 PAT TOP DAILY PAIN (Reported) Nephro-Vitamins (Nephro-Becca Tablet) 0.8 MG TABLET 1 TAB PO DAILY esrd Sennosides (Senokot) 8.6 MG TABLET 1 TAB PO DAILY GI (Reported) Sevelamer Carbonate (Renvela) 800 MG TABLET 1 TAB PO WM ESRD Vitamin E (Dl,Tocopheryl Acet) (Vitamin E) 400 UNIT CAPSULE 1 CAP PO DAILY SUPPLEMENT (Reported) Past History Travel History Traveled to [place] past 21 day No Medical History Neurological: TIA EENT: NONE Cardiovascular: CAD (s/p CABG x 5), diastolic CHF, hypertension, hyperlipidemia Respiratory: pulmonary hypertension Gastrointestinal: NONE Hepatic: NONE Renal: chronic kidney disease Musculoskeletal: osteoarthritis Psychiatric: NONE Endocrine: hypothyroidism Cancer(s): colon/rectal cancer AMMONIA DISTILLER/Reproductive: NONE History of MRSA: No History of VRE: No History of CDIFF: No Isolation History: Standard Surgical History Surgical History: CABG, colon resection (sigmoid - Diaz A colon Ca), knee replacement, nerve stimulator Past Family/Social History Family History Relations & Conditions if any MOTHER, , Age 58; Cause: Colon cancer. FATHER, , Age 70; Cause: Myocardial infarction. Relation not specified for: colon cancer in mother Psychosocial History Where do you live? Home Who Do You Live With? spouse Services at Home: Nursing, Physical Therapy Primary Language: Paraguayan Smoking Status: Former Smoker ETOH Use: denies use Living Will? yes Power of Steam Engineer/HCP? unknown Functional Ability ADLs Independent: dressing, eating, toileting, bathing. Ambulation: independent IADLs Independent: shopping, housework, finances, food prep, telephone, transportation , medication admin. Review of Systems Review of Systems Constitutional: Denies: chills, diaphoresis. EENTM: Reports: nasal congestion. Denies: ear pain, throat pain. Cardiovascular: Reports: syncope. Denies: chest pain, palpitations. Respiratory: Reports: cough, sputum production. Denies: hemoptysis, wheezing. GI: Reports: diarrhea. Denies: abdominal pain, constipation, bloody stool, vomiting. Genitourinary: Denies: dysuria, hematuria. Musculoskeletal: Denies: back pain, joint pain, joint swelling, neck pain. Skin: Reports: change in skin color, jaundice. Denies: rash. Neurological/Psychological: Denies: headache, numbness, tremors, tonic-clonic seizures. Exam & Diagnostic Data Last 24 Hrs of Vital Signs/I&O Vital Signs Date Time Temp Pulse Resp B/P B/P Pulse O2 O2 Flow FiO2 Mean Ox Delivery Rate 07/19 2200 95 Nasal 2.0L Cannula 07/19 2107 97.8 74 18 126/60 98 Nasal 2.0L Cannula 07/19 2000 75 18 128/58 96 Nasal 2.0L Cannula 07/19 1836 97.3 69 16 112/54 95 Nasal 2.0L Cannula 07/19 1705 82 16 113/59 94 Nasal 2.0L Cannula 07/19 1532 75 16 109/51 95 Nasal 2.0L Cannula 07/19 1500 95 Nasal 2.0L Cannula 07/19 1450 95 Nasal 2.0L Cannula 07/19 1450 97.5 76 20 92/50 90 Room Air Intake & Output 07/19 1600 07/19 0800 07/19 0000 Intake Total Output Total Balance Patient 238 lb Weight Weight Reported by Patient Measurement Method Physical Exam General Appearance Alert, Oriented X3, Cooperative, No Acute Distress Skin No Rashes, No Breakdown, No Significant Lesion, Jaundice noted Skin Temp/Moisture Exam: Warm/Dry Sepsis Skin Exam (color): Normal for Ethnicity HEENT Atraumatic, PERRLA, EOMI, Mucous Membr. moist/pink Neck Supple, No JVD, No thryomegaly, +2 Carotid Pulse wo Bruit Lymphatic Cervical nl Cardiovascular Regular Rate, Normal S1, Normal S2, No Murmurs, Ejection systolic murmur in aortic valve region heard Lungs Clear to Auscultation, Normal Air Movement Abdomen Normal Bowel Sounds, Soft, No Tenderness, No Hepatospenomegaly, No Masses Neurological Normal Speech, Strength at 5/5 X4 Ext, Normal Tone, Cranial Nerves 3-12 NL Extremities No Clubbing, No Edema, Normal Pulses Vascular Normal Pulses, Pulses Symmetrical Sepsis Peripheral Pulse Location: Dorsalis Pedis Sepsis Peripheral Pulse Exam: Normal Sepsis Cap Refill Exam: >2 sec Last 24 Hrs of Labs/Jamel: Laboratory Tests 07/20/17 1000: Vitamin B12 Cancelled 07/20/17 0515: Anion Gap 22 H, Estimated GFR 6 L, Glucose 88, Calcium 8.3 L, Phosphorus 7.2 H, Magnesium 1.7, Total Bilirubin 5.6 H, AST 69 H, ALT 102 H, Alkaline Phosphatase 314 H, Creatine Kinase 127, Troponin I 0.04, Albumin 3.4 L, Vitamin B12 > 1000 H, PT 14.7 H, INR 1.40 H, CBC w Diff NO MAN DIFF REQ, RBC 2.87 L, MCV 92.8, MCH 30.6, RDW 16.9 H, MPV 8.2, Gran % 78.9 H, Lymphocytes % 10.2 L, Monocytes % 10.3 H, Eosinophils % 0.4, Basophils % 0.2, Absolute Granulocytes 3.7, Absolute Lymphocytes 0.5 L, Absolute Monocytes 0.5, Absolute Eosinophils 0, Absolute Basophils 0, PUBS MCHC 33.0 07/20/17 0500: Vitamin B12 Cancelled 07/20/17 0020: Troponin I 0.03, CBC w Diff MAN DIFF ORDERED, RBC 2.84 L, MCV 92.4, MCH 30.8, RDW 16.8 H, MPV 8.4, Gran % 82.3 H, Lymphocytes % 10.7 L, Monocytes % 7.0, Eosinophils % 0, Basophils % 0, Absolute Granulocytes 4.1, Segmented Neutrophils 87 H, Absolute Lymphocytes 0.5 L, Lymphocytes 8 L, Monocytes 5, Absolute Monocytes 0.3, Absolute Eosinophils 0, Absolute Basophils 0, Platelet Estimate ADEQUATE, Polychromasia 1+, Hypochromic-Microcytic 1+, Anisocytosis 1+, Target Cells 1+, Stomatocytes FEW, Elliptocytes FEW, PUBS MCHC 33.4 07/19/17 2133: Virus Culture Pending 07/19/17 1900: Ammonia 30 07/19/17 1732: Lactic Acid Cancelled Microbiology 07/20 0556 URINE ROUT: Legionella Antigen - COLB 07/20 210 URINE ROUT: Legionella Antigen - COLB 07/20 210 URINE ROUT: Streptococcus pneumoniae Antigen (M - COLB 07/19 2199 UPPER RESP: Surveillance Culture - RECD 07/19 2199 NASOPHARYN: Influenza Virus A & B Rapid Smear - COMP INFLUENZA TYPE A 07/19 2199 GI: Surveillance Culture - RECD Diagnostic Data EKG Results Normal sinus rhythm with 1st degree av block. CXR Results IMPRESSION: No definite evidence of pulmonary edema at this time. Elevated left hemidiaphragm, chronic. Mediastinum is difficult to assess with this technique Other Results CT head- No intracranial lesion' CT CHEST: Lungs: Asymmetric elevation of left diaphragm compared to right. Linear atelectasis at left lung base. No infiltrate. Central bronchial airways are open. CT ABDOMEN AND PELVIS: 1. Stable cystic lesion inferior right lobe of liver. No suspicious liver lesion. 2. Cholelithiasis without acute change of gallbladder wall. 3. Atrophic right kidney. Bilateral renal cysts. No acute abnormality of kidneys. 4. Diverticulosis of colon without acute change of bowel. Status post prior surgical anastomosis at sigmoid colon intact. 5. Stable left adrenal lesion. Assessment/Plan Assessment: The patient is an 87-year-old man with a past medical history of CKD on hemodialysis Monday, day Monday (he missed Hemodialysis session today), aortic stenosis, heart failure with preserved ejection fraction, coronary artery disease status post CABG 5, pulmonary hypertension, hyperlipidemia, hypertension, hypothyroidism, osteoarthritis, colonic cancer status post resection and anastomosis and obstructive sleep apnea on nocturnal oxygen supplementation. He presented with a 3 day history of nasal congestion, cough with yellowish sputum, low-grade fever, generalized weakness, loss of appetite and diarrhea with dark colored stool. He subsequently had an episode of syncope today preceded by hypoxia. His blood pressure was 92/50 mmhg on arrival but improved after 500 mL of normal saline to 113/59 mmhg. His physical exam is prominent for jaundice and an aortic stenosis murmur. His lab findings also significant for conjugated hyperbilirubinemia but without clear biliary dilatation on CT scan and ultrasound of his abdomen. He has a positive rapid flu test and this could be a possible etiology for his mild transaminitis and biliary congestion. His hemoglobin is low but this appears to be a chronic finding and although he did have guaiac positive stools in the ER, it is unlikely that he is having a significant lower GI bleed. He will be admitted and treated for influenza, syncope and conjugated hyperbilirubinemia. In addition he will need hemodialysis as he missed his appointment today. Problem list 1. Syncope 2. Influenza and upper respiratory tract infection 3. Transaminitis and conjugated hyperbilirubinemia 4. Anemia with guaiac positive stools 5. End-stage renal disease on hemodialysis Plan 1. Syncope * Admit to ICU * Serial EKGs and troponins * Cardio consult in the a.m for syncope with concerns for worsening of his known aortic stenosis * Echocardiogram in the morning * Of note his previous Echo on 10/05/16 showed EF of 60-65%. with mild to mild to moderate Aortic and mitral stenosis. * Hold Imdur, labetalol and amlodipine home medications. If his blood pressure is stable in the morning may resume these meds 2. Influenza and upper respiratory tract infection * Oxygen by nasal cannula to keep O2 sat greater than 92% * Tamiflu renal dialysis dose * TRC for nebulizer therapy * Considering his questionable left lower lobe opacity in chest CT scan ( infiltrate versus atelectasis) we'll will monitor closely for fevers and low threshold to start antibiotics for possible bacterial pneumonia 3. Transaminitis and conjugated hyperbilirubinemia * At this point the etiology of his transaminitis and hyperbilirubinemia is unclear * Possible etiologies include transaminitis from influenza virus, congestive hepatopathy from heart failure, or autoimmune as patient had positive p-ANCA in the past * Will obtain Gastroenterology consult * Nothing By mouth in consideration of possible MRCP in a.m (although the patient has a nerve stimulator hardware and this will likely be a contraindication to this test) * Trend LFTs * Sent Tylenol level 4. Anemia with guaiac positive stools * His anemia is likely multifactorial from anemia of chronic disease and a slow lower GI bleed from possible angiodysplasia and he has had workup including upper and lower GI endoscopies by loss control consultant Dr. Strong in the past * The dark stool was likely from iron supplementation which the patient takes * Will monitor CBC closely * Send iron studies * Gastroenterology will evaluate as he was planned for outpatient PillCam with them 5. End-stage renal disease on hemodialysis * Nephrology consult for hemodialysis in the morning. Please note that patient has missed his last hemodialysis dose today 6. DVT prophylaxis * ALPS 7. CODE STATUS * Full code As Ranked By This Provider Problem List: 1. Syncope Qualifiers Syncope type: unspecified Qualified Code: R55 - Syncope and collapse 2. Influenza A 3. Elevated LFTs 4. Jaundice 5. GI bleeding Qualifiers GI bleed type/associated pathology: melena Qualified Code: K92.1 - Melena 6. CAD (coronary artery disease) 7. Hypertension Core Measures/Misc (03/19) Acute Coronary Syndrome ACS Diagnosis: No Congestive Heart Failure Congestive Heart Failure Diagnosis Yes Last Known EF % 65 No ARSENIO/ARB d/t Renal Failure/Azotemia Cerebrovascular Accident CVA/TIA Diagnosis: No VTE (View Protocol) VTE Risk Factors Cancer/chemo/othr therapy No Mechanical VTE Prophylaxis d/t N/A MechProphylax Ordered No VTE Pharm Prophylaxis d/t NA PharmProphylax ordered Sepsis (View protocol) Sepsis Present: No
--- NOTE | 2017-07-19 22:23 | CT SCAN REPORT ---
EXAMINATION: CT HEAD WITHOUT CONTRAST CLINICAL INFORMATION: Syncope. COMPARISON: 10/20/2015. TECHNIQUE: Contiguous axial images of the brain were obtained without IV contrast. DLP: 644 mGy-cm. FINDINGS: There are no pathologic extra-axial fluid collections. The lateral, third, fourth ventricles are mildly prominent, though stable, age-appropriate and concordant with the appearance of the sulci. There is no evidence for acute intraparenchymal hemorrhage or infarct. There is neither mass nor mass effect. There is no shift of midline structures. The paranasal sinuses and mastoid air cells are clear. There are no osseous lesions. IMPRESSION: No evidence for acute intracranial injury. Age-appropriate appearance of the brain.
[2017-07-20] VITALS: BP 120/60
[2017-07-20 01:12] LABS: ABSOLUTE BASOPHIL COUNT 0 /CUMM (0.0-0.2); ABSOLUTE EOSINOPHIL COUNT 0 /CUMM (0.0-0.7); ABSOLUTE GRANULOCYTE CT 4.1 /CUMM (1.4-6.5); ABSOLUTE LYMPH COUNT 0.5 /CUMM (1.2-3.4); ABSOLUTE MONOCYTE COUNT 0.3 /CUMM (0.10-0.60); BASOPHIL % 0 % (0.0-2.0); EOSINOPHIL % 0 % (0-5); GRANULOCYTE % 82.3 % (42.2-75.2); HEMATOCRIT 26.2 % (42-52); MEAN CORPUSCULAR HGB 30.8 PG (27.0-31.0); MEAN CORPUSCULAR HGB CONC 33.4 G/DL (33.0-37.0); MEAN CORPUSCULAR VOLUME 92.4 FL (80.0-94.0); MEAN PLATELET VOLUME 8.4 FL (7.4-10.4); PLATELET COUNT 187 /CUMM (130-400); RBC DISTRIBUTION WIDTH 16.8 % (11.5-14.5); RED BLOOD CELL CT 2.84 /CUMM (4.70-6.10)
--- NOTE | 2017-07-20 02:42 | PN- Att Addend ---
Attending Addendum Attending Brief Note CC: passed out PMH: A day S/P CABG, ESRD on hemodialysis, hypothyroidism, colon cancer S/P resection and anastomosis, HFpEF , chronic back pain on nonsteroidal stimulator, ROBYN not on CPAP, on nighttime oxygen, moderate aortic stenosis History is mostly obtained from patient's , patient is hard of hearing but can provide detail. This morning patient's noticed him to be very pale and lethargic, he did not look right so she checked his oxygen which was 84% so she was walking him to bedroom where he could lie down and start the home oxygen but before he could make it to bed he lost consciousness and gradually fell on the floor, did not hit his head but scratched on the right arm. Patient did not complain of any chest pain, palpitation, lightheadedness before fall. Immediately after the fall patient's started him on oxygen through the nasal cannula, he was breathing but was not responsive to pain. She called EMS and his blood pressure was high when they arrived. Patient did not have any seizure-like activity, bladder or bowel incontinence, tongue bite after the fall. Few months back patient had similar episode of loss of consciousness when he was in doctor's office. Of note patient was complaining of nasal discharge, scratchy throat, nighttime cough with discolored sputum since last 3 days but no obvious fever or chills. Patient denied any pleuritic chest pain. On Monday, that is 5 days back patient had 3-4 times watery diarrhea not associated with cramping or any blood in the stool. Again yesterday patient had 3 watery stools last one around 10:30 PM, not associated with crampy abdominal pain before or after diarrhea, no passing out at the time of diarrhea, no blood but both the times patient said that his stool was dark. Since that time he is on hemodialysis patient is constipated and takes different OTC medications but having diarrhea was unusual. Patient denies any abdominal bloating, heartburn, nausea vomiting. When asked, family denied any loss of consciousness episodes but last week patient had a fall in kitchen, patient does not recall that episode, nobody was at home to witnessed. According to patient's dialysis nurse observed that patient has been more yellow looking and she noticed some yellow streaks on the dialysis filter and was suggested to get liver enzymes and bilirubin. Patient had appointment for the same today but could not go. Patient also did not go for dialysis because of diarrhea. Vitals: Afebrile, pulse in 70s, RR 20, blood pressure 92/50 on arrival been 109/ 51 improved to 113/59, saturating 90% on 2 L nasal cannula. On exam: A O 3, hard of hearing, jaundiced, mucosa dry, crusted blood around the right angle of mouth, no tongue bite or any oral trauma, poor oral hygiene, cooperative, no acute distress, neck supple, JVD normal, no lymphadenopathy, no focal neurological deficit, no dependent edema, no obvious skin rashes or inflammation CVS: S1-S2, RRR. RS: Clear to auscultate bilaterally. Abdomen: Soft , NT, ND, bowel sounds present, no Mccauley sign. Labs: WBC 5.7, hemoglobin 8.9, hematocrit 25.6, platelet 239, sodium 141, potassium 4.9, chloride 100, bicarbonate 19, BUN 81, creatinine 7.4, anion gap 21, glucose 111, calcium 8.2, lactate 1.2, total bilirubin 9.3, direct bilirubin 8.6, AST 98, ALT 110, alkaline phosphatase 354, proBNP 25,300, albumin 3.4, lipase 353, INR 1.35 CT head: BasNo evidence for acute intracranial injury. Age-appropriate appearance of the brain. CT abdomen and chest pelvis without IV contrast: 1. Asymmetric elevation of left diaphragm compared to right. Atelectasis at left lung base. No acute change of the chest. 2. Stable cystic lesion inferior right lobe of liver. No suspicious liver lesion. 3. Cholelithiasis without acute change of gallbladder wall. 4. Atrophic right kidney. Bilateral renal cysts. No acute abnormality of kidneys. 5. Diverticulosis of colon without acute change of bowel. Status post prior surgical anastomosis at sigmoid colon intact. 6. Stable left adrenal lesion. Right upper quadrant ultrasound: Liver of mildly heterogeneous echogenicity. No intrahepatic biliary ductal dilation. 4.8 cm cyst within the right lobe with peripheral calcification. Cholelithiasis without evidence of cholecystitis. Assessment and plan 87-year-old male with multiple comorbidities was brought in ER through EMS after what appears to be a syncopal episode. While in ER his found to have multiple problems #1 syncope : Patient's noticed him to be hypoxic immediately before the episode which might be the likely cause but at the same time any cardiac arrhythmias should be ruled out. Patient had episode of diarrhea tonight prior, hypovolemia and dehydration can cause a syncopal episode. Patient was also hypotensive upon arrival in the ER. Patient also has history of moderate aortic stenosis, echocardiogram done in October 2016. Patient needs further evaluation for syncopal episode. Less likely seizure, no head strike, CT head negative. He had at least 3 episodes like this that can't recall. He scratched right upper extremity in fall. ROM and right elbow intact - Admit to ICU - Continuous telemetry monitoring - Serial troponin and EKG - 2-D echocardiogram for aortic stenosis - Cardiology consult - Orthostatic vitals in a.m. #2 upper respiratory symptoms with nasal congestion, nasal discharge, mild cough with sputum production : Flu was checked which is positive. It should also be noted that on CT scan there is possible infiltrate versus atelectasis on CT scan on left lower lobe, a significant fever spike or leukocytosis, consider empiric antibiotic for pneumonia. - start on Tamiflu, continue O2 by nasal cannula, try to taper down, TRC nebs. #3 elevated bilirubin with a mild transaminitis. Patient's alkaline phosphatase is elevated, CT abdomen and pelvis and ultrasound abdomen does not show any biliary ductal dilatation, obstructing stone. Mccauley's sign negative on examination. INR is 1.35. Patient's does not recall his previous liver enzymes and bilirubin. Comparative value available in October 2016 which was normal liver enzymes and bilirubin. According to patient's this appears to be very acute change in last few days. This needs further evaluation, ERCP versus MRCP to rule out any obstruction. Patient cannot get MRCP because of pain stimulator. We will obtain GI opinion. He has significant HFpEF, which may cause cardiac cirrhosis but there is no evidence of ascites on ultrasound abdomen. Hemolysis is less likely. Patient also has history of p-ANCA positive, labs done in reference to his ESRD, ?Autoimmune disease - Repeat LFT and INR in the morning - Gastroenterology consult in AM #4 FOBT positive and anemia. Patient has chronic anemia and on iron supplementation. He said that his stool was black when he had diarrhea as mentioned above. Fecal occult blood done by ER provider is positive but no naye blood. According to patient's his hemoglobin runs around 10-11, and 8.9 is low for him. Given this and transient hypotension we Will monitor for any further GI bleed, needs closer vital monitoring in ICU, repeat H&H - Obtain iron studies and reticulocyte count - GI consult in a.m. - Repeat hemoglobin and hematocrit in 8 hours #5 ESRD on hemodialysis : Consult nephro in a.m. for dialysis - DVT prophylaxis with Alps - Saline lock IV TTS 35 min
--- NOTE | 2017-07-20 02:42 | Admission Certification ---
Admission Certification Certification Statement - As attending physician, I certify that at the time of - admission, based on clinical presentation, severity of - symptoms, need for further diagnostic testing and - therapeutic interventions, and risk of adverse outcomes - without in-hospital treatment, in my clinical assessment, - this patient requires an acute hospital stay for a minimum - of two nights or longer. I have also considered psychsocial - factors such as support system, advanced age, financial - issues, cognitive issues, and failed out-patient treatments, - past re-admission history, safety of patient, and lack of - compliance as applicable. Specific rationale supporting this admission is: Syncope, hypoxia, transient hypotension, elevated liver enzymes and bilirubin
[2017-07-20 06:12] LABS: ABSOLUTE BASOPHIL COUNT 0 /CUMM (0.0-0.2); ABSOLUTE EOSINOPHIL COUNT 0 /CUMM (0.0-0.7); ABSOLUTE GRANULOCYTE CT 3.7 /CUMM (1.4-6.5); ABSOLUTE LYMPH COUNT 0.5 /CUMM (1.2-3.4); ABSOLUTE MONOCYTE COUNT 0.5 /CUMM (0.10-0.60); BASOPHIL % 0.2 % (0.0-2.0); EOSINOPHIL % 0.4 % (0-5); GRANULOCYTE % 78.9 % (42.2-75.2); HEMATOCRIT 26.7 % (42-52); MEAN CORPUSCULAR HGB 30.6 PG (27.0-31.0); MEAN CORPUSCULAR VOLUME 92.8 FL (80.0-94.0); MEAN PLATELET VOLUME 8.2 FL (7.4-10.4); PLATELET COUNT 191 /CUMM (130-400); RBC DISTRIBUTION WIDTH 16.9 % (11.5-14.5); RED BLOOD CELL CT 2.87 /CUMM (4.70-6.10); WHITE BLOOD CELL COUNT 4.7 /CUMM (4.8-10.8)
[2017-07-20 06:15] LABS: PT 14.7 SEC (9.4-12.5)
--- NOTE | 2017-07-20 07:05 | PN- Resident CRCU ---
Objective Vital Signs & I&O Last 8 Hrs of Vitals and I&O: Intake & Output 07/20 0800 Intake Total 150 Output Total Balance 150 Intake, Oral 150
[2017-07-20 08:00] VITALS: BP 138/70
--- NOTE | 2017-07-20 09:03 | Cons- CRCU ---
General Information and HPI Allergies/Medications Allergies: Coded Allergies: NO KNOWN ALLERGIES (09/28/15) Home Med List: Amlodipine Besylate (Norvasc) 10 MG TABLET 10 MG PO DAILY HTN Aspirin (Aspirin*) 81 MG TAB.CHEW 1 TAB PO DAILY cad Atorvastatin Calcium 20 MG TABLET 1 TAB PO DAILY CHOLESTEROL (Reported) Cholecalciferol (Vitamin D3) (Vitamin D) 1,000 UNIT TABLET 1 TAB PO DAILY SUPPLEMENT (Reported) Docusate Sodium (Colace) 100 MG CAPSULE 1 CAP PO BID STOOL SOFTENER (Reported ) Duloxetine HCl (Unknown Strength) CAPSULE.DR (Unknown Dose) UNKNOWN (Reported ) Epoetin Earnest (Procrit) 40,000 UNIT/ML VIAL 40,000 UNIT SC Q2W ANEMIA ( Reported) Gabapentin (Neurontin) 300 MG CAPSULE 1 CAP PO QPM NEUROPATHY (Reported) Isosorbide Mononitrate 10 MG TABLET 1 TAB PO BID HEART (Reported) Labetalol HCl 300 MG TABLET 1 TAB PO QAM BP (Reported) Labetalol HCl 300 MG TABLET 150 MG PO QPM BP (Reported) Levothyroxine Sodium 50 MCG TABLET 1 TAB PO DAILY THYROID (Reported) Lidocaine 5 % ADH..PATCH 1 PAT TOP DAILY PAIN (Reported) Nephro-Vitamins (Nephro-Becca Tablet) 0.8 MG TABLET 1 TAB PO DAILY esrd Sennosides (Senokot) 8.6 MG TABLET 1 TAB PO DAILY GI (Reported) Sevelamer Carbonate (Renvela) 800 MG TABLET 1 TAB PO WM ESRD Vitamin E (Dl,Tocopheryl Acet) (Vitamin E) 400 UNIT CAPSULE 1 CAP PO DAILY SUPPLEMENT (Reported) Past History Travel History Traveled to [place] past 21 day No Medical History Blood Transfusion Hx: Yes Neurological: shingles left chest wall dermatome EENT: hearing loss Cardiovascular: CAD (s/p CABG x 5), diastolic CHF, hypertension, hyperlipidemia Respiratory: pneumonia, pulmonary hypertension Gastrointestinal: NONE (sigmoid resection Diaz A Ca), diverticulosis coli, HP- neg gastritis Hepatic: NONE Renal: chronic kidney disease (on HD) Musculoskeletal: osteoarthritis, TKR, neurostim low back, back surgery, CTS Psychiatric: NONE Endocrine: hypothyroidism Blood Disorders: anemia (hx Fe def/B12 def) Cancer(s): colon/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 FATHER, , Age 70; Cause: Myocardial infarction. Relation not specified for: colon cancer in mother Psychosocial History Where Do You Live? Home Who Do You Live With? spouse, child (2 sons) Services at Home: Nursing, Oxygen, Physical Therapy Primary Language: Polish Smoking Status: Former Smoker ETOH Use: denies use Illicit Drug Use: denies illicit drug use Living Will? no Power of Nut Culler/HCP? no Other Social History: to Andrea. 4 Children (3 sons & 1 dtr- 1 of the sons had TBI, another son had CVA at age 49, in the setting of PVD/smoking/hypertension). None of the patient's sons ages 50, 52, and 54 had baseline screening colonoscopy, despite the positive family history. Their daughter, Heriberto Lopez, had small benign TA removed in 05/2011. Ex > 125 pack year smoker, stopped in 1975. 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 No EtOH. No drugs. Functional Ability ADLs Independent: dressing, eating, toileting, bathing. Ambulation: independent IADLs Independent: food prep, telephone. Needs Assist: shopping, housework, finances, transportation, medication admin. 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
--- NOTE | 2017-07-20 09:20 | Cons- Cardiology ---
General Information and HPI Consulting Request Date of Consult: 07/20/17 Requested By: Sebastián Camacho MD Reason for Consult: syncope Source of Information: patient, old records Exam Limitations: patient's age, poor historian History of Present Illness: The patient is an 87-year-old man with a past medical history of CK D on hemodialysis Monday (he missed yesterday), aortic stenosis, heart failure with preserved ejection fraction, hypertension, hyperlipidemia, hypothyroidism, pulmonary hypertension, osteoarthritis, colonic cancer status post resection and anastomosis, coronary artery disease status post CABG 5 and obstructive sleep apnea on nocturnal oxygen supplementation. He developed nasal congestion with yellowish nasal discharge 3 days ago along with generalized weakness and loss of appetite. He had a low-grade fever to 100 Fahrenheit as measured by his 3 days ago. He also had intermittent episodes of black colored diarrhea (4 episodes on Monday and 3 episodes yesterday). Just this afternoon while he was sitting in the living room his noticed his PO2 to be 84%. She was walking with him back to the bedroom and after he sat down he had a syncopal episode and gradually slumped down to the ground and sustained a scraping wound to his right arm. According to his , he was unresponsive after 10 minutes and she placed oxygen by nasal cannula on the patient and called 911. He subsequently regained consciousness gradually and was brought into [facility] by ambulance. He denied chest pains, palpitations during this episode. Of note, he had an unwitnessed syncopal episode one week prior and also sustained minor scrape to his arm. He has had a remote history of syncope after climbing up a flight of stairs to his PCPs office around October 2016. He denies dysuria, hematuria, headaches, numbness or tingling of any parts of the body along with weakness of any part of the body The above information was obtained by the medical transcription supervisor. The concurs the history. He has had a long history of coronary artery disease having had coronary artery bypass graft surgery, moderate aortic stenosis, cerebrovascular disease and carotid stenosis, end-stage renal disease on dialysis, obstructive sleep apnea, hypertension, hyperlipidemia. Allergies/Medications Allergies: Coded Allergies: NO KNOWN ALLERGIES (09/28/15) Home Med List: Amlodipine Besylate (Norvasc) 10 MG TABLET 10 MG PO DAILY HTN Aspirin (Aspirin*) 81 MG TAB.CHEW 1 TAB PO DAILY cad Atorvastatin Calcium 20 MG TABLET 1 TAB PO DAILY CHOLESTEROL (Reported) Cholecalciferol (Vitamin D3) (Vitamin D) 1,000 UNIT TABLET 1 TAB PO DAILY SUPPLEMENT (Reported) Docusate Sodium (Colace) 100 MG CAPSULE 1 CAP PO BID STOOL SOFTENER (Reported ) Duloxetine HCl (Unknown Strength) CAPSULE.DR (Unknown Dose) UNKNOWN (Reported ) Epoetin Earnest (Procrit) 40,000 UNIT/ML VIAL 40,000 UNIT SC Q2W ANEMIA ( Reported) Gabapentin (Neurontin) 300 MG CAPSULE 1 CAP PO QPM NEUROPATHY (Reported) Isosorbide Mononitrate 10 MG TABLET 1 TAB PO BID HEART (Reported) Labetalol HCl 300 MG TABLET 1 TAB PO QAM BP (Reported) Labetalol HCl 300 MG TABLET 150 MG PO QPM BP (Reported) Levothyroxine Sodium 50 MCG TABLET 1 TAB PO DAILY THYROID (Reported) Lidocaine 5 % ADH..PATCH 1 PAT TOP DAILY PAIN (Reported) Nephro-Vitamins (Nephro-Becca Tablet) 0.8 MG TABLET 1 TAB PO DAILY esrd Sennosides (Senokot) 8.6 MG TABLET 1 TAB PO DAILY GI (Reported) Sevelamer Carbonate (Renvela) 800 MG TABLET 1 TAB PO WM ESRD Vitamin E (Dl,Tocopheryl Acet) (Vitamin E) 400 UNIT CAPSULE 1 CAP PO DAILY SUPPLEMENT (Reported) Current Medications: Current Medications Sig/Tiffanie Start time Last Medication Dose Route Stop Time Status Admin Aspirin 81 MG DAILY 07/20 1000 AC 07/20 PO 0822 Atorvastatin Calcium 20 MG DAILY 07/20 1000 CAN PO Cholecalciferol 1,000 IU DAILY 07/20 1000 AC 07/20 PO 0822 Gabapentin 300 MG QPM 07/20 2200 AC PO Gabapentin 300 MG ONCE ONE 07/20 0030 DC 07/20 PO 07/20 0031 0144 Ibuprofen 400 MG Q6P PRN 07/19 2230 DC PO Levothyroxine Sodium 0.05 MG DAILY 07/20 1000 AC 07/20 PO 0822 Oseltamivir Phosphate 30 MG 2200 07/20 0001 AC 07/20 PO 07/24 0000 0040 Pantoprazole Sodium 40 MG DAILY 07/20 1000 AC 07/20 IV 0821 Pantoprazole Sodium 0 .STK-MED ONE 07/19 1553 DC IV Pantoprazole Sodium 40 MG ONCE ONE 07/19 1545 DC 07/19 IV 07/19 1546 1554 Sevelamer Carbonate 800 MG WM 07/20 0800 AC 07/20 PO 0823 Sodium Chloride 500 ML BOLUS ONE 07/19 1500 DC 07/19 IV 07/19 1559 1500 Vitamin E 400 IU DAILY 07/20 1000 AC 07/20 PO 0822 Review of Systems Review of Systems Constitutional: Reports: see HPI. EENTM: Reports: see HPI. Cardiovascular: Reports: see HPI. Respiratory: Reports: see HPI. GI: Reports: see HPI. Genitourinary: Reports: see HPI. Musculoskeletal: Reports: see HPI. Skin: Denies: no symptoms. Neurological/Psychological: Reports: see HPI. Hematologic/Endocrine: Denies: no symptoms. 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 FATHER, , Age 70; Cause: Myocardial infarction. Relation not specified for: colon cancer in mother Psychosocial History Where Do You Live? Home Who Do You Live With? spouse, child (2 sons) Services at Home: Nursing, Oxygen, Physical Therapy Primary Language: Lithuanian Smoking Status: Former Smoker ETOH Use: denies use Illicit Drug Use: denies illicit drug use Living Will? 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 4 Children (3 sons & 1 dtr- 1 of the sons had TBI, another son had CVA at age 49, in the setting of PVD/smoking/hypertension). None of the patient's sons ages 50, 52, and 54 had baseline screening colonoscopy, despite the positive family history. Their daughter, Heriberto Lopez, had small benign TA removed in 05/2011. Ex > 125 pack year smoker, stopped in 1975. 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 No EtOH. No drugs. Functional Ability ADLs Independent: dressing, eating, toileting, bathing. Ambulation: independent IADLs Independent: food prep, telephone. Needs Assist: shopping, housework, finances, transportation, medication admin. 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 [employer] ECHO Results (as available) Date of last Echo 10/05/16 EF% 65 Exam & Diagnostic Data Vital Signs and I&O Vital Signs Date Time Temp Pulse Resp B/P B/P Pulse O2 O2 Flow FiO2 Mean Ox Delivery Rate 07/20 0800 95 Nasal 2.0L Cannula 07/20 0800 97.1 88 16 138/70 95 Nasal 2.0L Cannula 07/20 0400 92 Nasal 2.0L Cannula 07/20 0000 99.3 85 18 120/60 95 Nasal 2.0L Cannula 07/20 0000 95 Nasal 2.0L Cannula 07/19 2200 95 Nasal 2.0L Cannula 07/19 2107 97.8 74 18 126/60 98 Nasal 2.0L Cannula 07/19 2000 75 18 128/58 96 Nasal 2.0L Cannula 07/19 1836 97.3 69 16 112/54 95 Nasal 2.0L Cannula 07/19 1705 82 16 113/59 94 Nasal 2.0L Cannula 07/19 1532 75 16 109/51 95 Nasal 2.0L Cannula 07/19 1500 95 Nasal 2.0L Cannula 07/19 1450 95 Nasal 2.0L Cannula 07/19 1450 97.5 76 20 92/50 90 Room Air Intake & Output 07/20 1600 07/20 0800 07/20 0000 07/19 1600 07/19 0800 07/19 0000 Intake Total 150 620 Output Total 0 Balance 150 620 Intake, IV 500 Intake, Oral 150 120 Output, Urine 0 Patient 240 lb 238 lb Weight Weight Bed scale Reported by Patient Measurement Method Physical Exam: Patient appears laying in bed comfortable but appears sick Head normocephalic atraumatic Eyes scleraa was anicteric, conjunctiva no pallor extraocular muscles were normal Neck mild jugular venous distention, left carotid bruit. No palpable nodes Chest lungs reveal bilateral scattered wheezes Heart regular rhythm with a grade 2/6 systolic murmur Abdomen soft nontender Extremities no clubbing cyanosis or edema Neurological no gross motor deficits Labs/Jamel Results: Laboratory Tests 07/20 07/20 0515 0500 Chemistry Sodium (137 - 145 mmol/L) 140 Potassium (3.5 - 5.1 mmol/L) 5.5 H Chloride (98 - 107 mmol/L) 100 Carbon Dioxide (22 - 30 mmol/L) 19 L Anion Gap (5 - 16) 22 H BUN (9 - 20 mg/dL) 87 H Creatinine (0.7 - 1.2 mg/dL) 8.4 *H Estimated GFR (>60 ml/min) 6 L Glucose (65 - 99 mg/dL) 88 Calcium (8.4 - 10.2 mg/dL) 8.3 L Phosphorus (2.5 - 4.5 mg/dL) 7.2 H Magnesium (1.6 - 2.3 mg/dL) 1.7 Total Bilirubin (0.2 - 1.3 mg/dL) 5.6 H AST (17 - 59 U/L) 69 H ALT (21 - 72 U/L) 102 H Troponin I (<0.11 ng/ml) 0.04 Albumin (3.5 - 5.0 g/dL) 3.4 L Vitamin B12 (239 - 931 pg/mL) > 1000 H Cancelled Coagulation PT (9.4 - 12.5 SEC) 14.7 H INR (0.90 - 1.17) 1.40 H Hematology CBC w Diff NO MAN DIFF REQ WBC (4.8 - 10.8 /CUMM) 4.7 L RBC (4.70 - 6.10 /CUMM) 2.87 L Hgb (14.0 - 18.0 G/DL) 8.8 L Hct (42 - 52 %) 26.7 L MCV (80.0 - 94.0 FL) 92.8 MCH (27.0 - 31.0 PG) 30.6 RDW (11.5 - 14.5 %) 16.9 H Plt Count (130 - 400 /CUMM) 191 MPV (7.4 - 10.4 FL) 8.2 Gran % (42.2 - 75.2 %) 78.9 H Lymphocytes % (20.5 - 51.1 %) 10.2 L Monocytes % (1.7 - 9.3 %) 10.3 H Eosinophils % (0 - 5 %) 0.4 Basophils % (0.0 - 2.0 %) 0.2 Absolute Granulocytes (1.4 - 6.5 /CUMM) 3.7 Absolute Lymphocytes (1.2 - 3.4 /CUMM) 0.5 L Absolute Monocytes (0.10 - 0.60 /CUMM) 0.5 Absolute Eosinophils (0.0 - 0.7 /CUMM) 0 Absolute Basophils (0.0 - 0.2 /CUMM) 0 PUBS MCHC (33.0 - 37.0 G/DL) 33.0 07/20 07/19 07/19 0020 2133 1900 Chemistry Ammonia (9 - 30 umol/L) 30 Troponin I (<0.11 ng/ml) 0.03 Hematology CBC w Diff MAN DIFF ORDERED WBC (4.8 - 10.8 /CUMM) 5.0 RBC (4.70 - 6.10 /CUMM) 2.84 L Hgb (14.0 - 18.0 G/DL) 8.8 L Hct (42 - 52 %) 26.2 L MCV (80.0 - 94.0 FL) 92.4 MCH (27.0 - 31.0 PG) 30.8 RDW (11.5 - 14.5 %) 16.8 H Plt Count (130 - 400 /CUMM) 187 MPV (7.4 - 10.4 FL) 8.4 Gran % (42.2 - 75.2 %) 82.3 H Lymphocytes % (20.5 - 51.1 %) 10.7 L Monocytes % (1.7 - 9.3 %) 7.0 Eosinophils % (0 - 5 %) 0 Basophils % (0.0 - 2.0 %) 0 Absolute Granulocytes (1.4 - 6.5 /CUMM) 4.1 Segmented Neutrophils (42.2 - 75.2 %) 87 H Absolute Lymphocytes (1.2 - 3.4 /CUMM) 0.5 L Lymphocytes (20.5 - 51.1 %) 8 L Monocytes (1.7 - 9.3 %) 5 Absolute Monocytes (0.10 - 0.60 /CUMM) 0.3 Absolute Eosinophils (0.0 - 0.7 /CUMM) 0 Absolute Basophils (0.0 - 0.2 /CUMM) 0 Platelet Estimate (ADEQUATE) ADEQUATE Polychromasia 1+ Hypochromic-Microcytic 1+ Anisocytosis 1+ Target Cells 1+ Stomatocytes FEW Elliptocytes FEW PUBS MCHC (33.0 - 37.0 G/DL) 33.4 Serology Virus Culture Pending 07/19 07/19 07/19 1732 1546 1546 Chemistry Sodium (137 - 145 mmol/L) 141 Potassium (3.5 - 5.1 mmol/L) 4.9 Chloride (98 - 107 mmol/L) 100 Carbon Dioxide (22 - 30 mmol/L) 19 L Anion Gap (5 - 16) 21 H BUN (9 - 20 mg/dL) 81 H Creatinine (0.7 - 1.2 mg/dL) 7.4 *H Estimated GFR (>60 ml/min) 7 L BUN/Creatinine Ratio (7 - 25 %) 10.9 Glucose (65 - 99 mg/dL) 111 H Lactic Acid (0.7 - 2.1 mmol/L) Cancelled 1.1 Calcium (8.4 - 10.2 mg/dL) 8.2 L Iron (49 - 181 ug/dL) 45 L Ferritin (17.9 - 464 ng/mL) 497.0 H Total Bilirubin (0.2 - 1.3 mg/dL) 9.3 H Direct Bilirubin (< 0.4 mg/dL) 8.6 H AST (17 - 59 U/L) 98 H ALT (21 - 72 U/L) 110 H Alkaline Phosphatase (< 127 U/L) 354 H Dew-W-[id number] Pept (<125 pg/mL) 76035 H Total Protein (6.3 - 8.2 g/dL) 6.1 L Albumin (3.5 - 5.0 g/dL) 3.4 L Globulin (1.9 - 4.2 gm/dL) 2.7 Albumin/Globulin Ratio (1.1 - 2.2 %) 1.3 Amylase (30 - 110 U/L) 137 H Lipase (23 - 300 U/L) 353 H Coagulation PT (9.4 - 12.5 SEC) 14.1 H INR (0.90 - 1.17) 1.35 H APTT (25 - 37 SEC) 38 H Serology Hepatitis A IgM Ab (NONREACTIVE) Pending Hep Bs Antigen (NONREACTIVE) Pending Hep B Core IgM Ab Conf (NONREACTIVE) Pending Hepatitis C Antibody (NONREACTIVE) Pending Toxicology Acetaminophen (10.0 - 30.0 ug/mL) < 10.0 L 07/19 1440 Hematology CBC w Diff NO MAN DIFF REQ WBC (4.8 - 10.8 /CUMM) 4.7 L RBC (4.70 - 6.10 /CUMM) 2.83 L Hgb (14.0 - 18.0 G/DL) 8.9 L Hct (42 - 52 %) 25.6 L MCV (80.0 - 94.0 FL) 90.6 MCH (27.0 - 31.0 PG) 31.3 H RDW (11.5 - 14.5 %) 17.6 H Plt Count (130 - 400 /CUMM) 239 MPV (7.4 - 10.4 FL) 9.1 Gran % (42.2 - 75.2 %) 81.3 H Lymphocytes % (20.5 - 51.1 %) 10.6 L Monocytes % (1.7 - 9.3 %) 7.0 Eosinophils % (0 - 5 %) 1.1 Basophils % (0.0 - 2.0 %) 0 Absolute Granulocytes (1.4 - 6.5 /CUMM) 3.8 Absolute Lymphocytes (1.2 - 3.4 /CUMM) 0.5 L Absolute Monocytes (0.10 - 0.60 /CUMM) 0.3 Absolute Eosinophils (0.0 - 0.7 /CUMM) 0.1 Absolute Basophils (0.0 - 0.2 /CUMM) 0 PUBS MCHC (33.0 - 37.0 G/DL) 34.6 Diagnostic Data EKG Results Sinus rhythm with first-degree AV block and nonspecific T-wave changes. Other Results CT scan of the chest1. Asymmetric elevation of left diaphragm compared to right. Atelectasis at left lung base. No acute change of the chest. 2. Stable cystic lesion inferior right lobe of liver. No suspicious liver lesion. 3. Cholelithiasis without acute change of gallbladder wall. 4. Atrophic right kidney. Bilateral renal cysts. No acute abnormality of kidneys. 5. Diverticulosis of colon without acute change of bowel. Status post prior surgical anastomosis at sigmoid colon intact. 6. Stable left adrenal lesion. Abdominal ultrasoundLiver of mildly heterogeneous echogenicity. No intrahepatic biliary ductal dilation. 4.8 cm cyst within the right lobe with peripheral calcification. Cholelithiasis without evidence of cholecystitis. Assessment/Plan Assessment/Plan In summary this 87-year-old gentleman has the following problems #1. History of syncope. I suspect severe dehydration and volume depletion related to diarrhea, current proven flu, and moderate aortic stenosis. Arrhythmia must be excluded both tachycardia and tachycardia and he is being monitored. #2. Elevated bilirubin and liver function tests workup in progress #3. End-stage renal disease on dialysis #4. Coronary artery disease previous coronary artery bypass graft surgery #5. Moderate to severe aortic stenosis #6. Cerebrovascular disease and carotid stenosis #7. Hypertension #8. Influenza I would recheck an echocardiogram. I would avoid volume depletion. Continue present medications for now. Observe for bradycardia or tachycardia arrhythmia. Consult Acknowledgment - Thank you for your consult request.
--- NOTE | 2017-07-20 10:09 | PN- Housestaff ---
Diandra Cassidy 07/20/1722: Subjective Follow-up For: - Syncope - Influenza A positive - Possible GI bleed - End-stage renal disease on hemodialysis - Elevated liver enzymes. Complaints: no complaints Subjective: Mr Martinez has a PMHx of coronary artery disease s/p CABG, colon cancer status post resection and anastomosis, HFpEF uses nocturnal O2 as needed, moderate , ROBYN not on CPAP, chronic back pain w/ neurostimulator in place, ESRD on HD was brought in after he was found to be hypoxemic 84% while he was sitting in his chair, and subsequently had a syncopal episode that lastted for ten minutes, which was witnessed by his . No loss of consciousness, bladder or bowel disturbances. He did not prodromal symptoms or had any post episodic confusion. No seizure. As per the , he was told that he had "yellowish tinge of his HD filters" likely from his jaundice, and also missed a dialysis session due to increased fatigue a few days prior to the illness. Also reported to have had upper respiratory symptoms for a week including sore throat, mucoid cough, but did not have any recorded high temperature. He also had several episodes of non-bloody diarrhea, but no relationship to this episode of syncope. However, reported dark stool which could be from iron supplmentation too. He did not have lightheadeness or dizziness in last one week. No chest pain, palpitations, or shorntess of breath. Reported decreased po intake, but no abdominal pain, nausea or vomiting. No abdominal distention, rashes or tremors. He also had fall a few days, which he attributes it to mechacnical reasons. Review of Systems Constitutional: Reports: see HPI. Objective Last 24 Hrs of Vital Signs/I&O Vital Signs Date Time Temp Pulse Resp B/P B/P Pulse O2 O2 Flow FiO2 Mean Ox Delivery Rate 07/20 0800 95 Nasal 2.0L Cannula 07/20 0800 97.1 88 16 138/70 95 Nasal 2.0L Cannula 07/20 0400 92 Nasal 2.0L Cannula 07/20 0000 99.3 85 18 120/60 95 Nasal 2.0L Cannula 07/20 0000 95 Nasal 2.0L Cannula 07/19 2199 95 Nasal 2.0L Cannula 07/19 2106 97.8 74 18 126/60 98 Nasal 2.0L Cannula 01/17 2000 75 18 128/58 96 Nasal 2.0L Cannula 07/19 1836 97.3 69 16 112/54 95 Nasal 2.0L Cannula 07/19 1705 82 16 113/59 94 Nasal 2.0L Cannula 07/19 1532 75 16 109/51 95 Nasal 2.0L Cannula 07/19 1500 95 Nasal 2.0L Cannula 07/19 1450 95 Nasal 2.0L Cannula 07/19 1450 97.5 76 20 92/50 90 Room Air Intake & Output 07/20 1600 07/20 0800 07/20 0000 Intake Total 150 620 Output Total 0 Balance 150 620 Intake, IV 500 Intake, Oral 150 120 Output, Urine 0 Patient 240 lb Weight Weight Bed scale Measurement Method Physical Exam General Appearance: Alert, Oriented X3, Cooperative, No Acute Distress Skin: No Rashes, skin tear- ulcers on the right elbow region. Skin Temp/Moisture Exam: Warm/Dry Sepsis Skin Exam (color): Normal for Ethnicity HEENT: Atraumatic, PERRLA, EOMI Neck: Supple, No JVD, No thryomegaly, +2 Carotid Pulse wo Bruit Lymphatic: Axillary nl Cardiovascular: Regular Rate, Normal S1, Normal S2, systolic murmur Lungs: Normal Air Movement Abdomen: Normal Bowel Sounds, Soft, No Tenderness Neurological: Normal Speech, Strength at 5/5 X4 Ext, Normal Tone, Sensation Intact, Cranial Nerves 3-12 NL, Reflexes 2+, no tremors, asterexis Extremities: No Cyanosis, Normal Pulses, No Tenderness/Swelling, 1+ pedal edema Vascular: Normal Pulses Current Medications: Current Medications Sig/Tiffanie Start time Last Medication Dose Route Stop Time Status Admin Aspirin 81 MG DAILY 07/20 1000 AC 07/20 PO 0822 Atorvastatin Calcium 20 MG DAILY 07/20 1000 CAN PO Cholecalciferol 1,000 IU DAILY 07/20 1000 AC 07/20 PO 0822 Gabapentin 300 MG QPM 07/20 2200 AC PO Gabapentin 300 MG ONCE ONE 07/20 0030 DC 07/20 PO 07/20 0031 0144 Ibuprofen 400 MG Q6P PRN 07/19 2230 DC PO Levothyroxine Sodium 0.05 MG DAILY 07/20 1000 AC 07/20 PO 0822 Lidocaine 1 ANI DAILY PRN 07/20 1015 UNVr TOP Oseltamivir Phosphate 30 MG 0 07/20 0001 AC 07/20 PO 07/24 0000 0040 Pantoprazole Sodium 40 MG DAILY 07/20 1000 AC 07/20 IV 0821 Pantoprazole Sodium 0 .STK-MED ONE 07/19 1553 DC IV Pantoprazole Sodium 40 MG ONCE ONE 07/19 1545 DC 07/19 IV 07/19 1546 1554 Sevelamer Carbonate 800 MG WM 07/20 0800 AC 07/20 PO 0823 Sodium Chloride 500 ML BOLUS ONE 07/19 1500 DC 07/19 IV 07/19 1559 1500 Vitamin E 400 IU DAILY 07/20 1000 AC 07/20 PO 0822 Last 24 Hrs of Lab/Jamel Results Last 24 Hrs of Labs/Mics: Laboratory Tests 07/20/17 1000: Vitamin B12 Cancelled 07/20/17 0515: Anion Gap 22 H, Estimated GFR 6 L, Glucose 88, Calcium 8.3 L, Phosphorus 7.2 H, Magnesium 1.7, Total Bilirubin 5.6 H, AST 69 H, ALT 102 H, Troponin I 0.04 , Albumin 3.4 L, Vitamin B12 > 1000 H, PT 14.7 H, INR 1.40 H, CBC w Diff NO MAN DIFF REQ, RBC 2.87 L, MCV 92.8, MCH 30.6, RDW 16.9 H, MPV 8.2, Gran % 78.9 H, Lymphocytes % 10.2 L, Monocytes % 10.3 H, Eosinophils % 0.4, Basophils % 0.2, Absolute Granulocytes 3.7, Absolute Lymphocytes 0.5 L, Absolute Monocytes 0.5, Absolute Eosinophils 0, Absolute Basophils 0, PUBS MCHC 33.0 07/20/17 0500: Vitamin B12 Cancelled 07/20/17 0020: Troponin I 0.03, CBC w Diff MAN DIFF ORDERED, RBC 2.84 L, MCV 92.4, MCH 30.8, RDW 16.8 H, MPV 8.4, Gran % 82.3 H, Lymphocytes % 10.7 L, Monocytes % 7.0, Eosinophils % 0, Basophils % 0, Absolute Granulocytes 4.1, Segmented Neutrophils 87 H, Absolute Lymphocytes 0.5 L, Lymphocytes 8 L, Monocytes 5, Absolute Monocytes 0.3, Absolute Eosinophils 0, Absolute Basophils 0, Platelet Estimate ADEQUATE, Polychromasia 1+, Hypochromic-Microcytic 1+, Anisocytosis 1+, Target Cells 1+, Stomatocytes FEW, Elliptocytes FEW, PUBS MCHC 33.4 Assessment/Plan Assessment: Mr Martinez has a PMHx of coronary artery disease s/p CABG, colon cancer status post resection and anastomosis, HFpEF uses nocturnal O2 as needed, moderate , ROBYN not on CPAP, chronic back pain w/ neurostimulator in place, ESRD on HD was brought in after he was found to be hypoxemic 84% while he was sitting in his chair, and subsequently had a syncopal episode likely from dehydration. At the time of admission, he was afebrile, pulse in 70s, RR 20, BP 113/59, saturating 90% on 2 L nasal cannula. Overnight, vitals remained stable. Tm 99.3, BP was stable SBP 120-130s. Infl A +. Pertinent lab data: WBC: 4.7, Hb 8.8 Na 140, K 5.5, HCO3 19, AG 22 ( likely metabolic ). Sr Cr 7.4-->8.4( 07/20) Tbili 9.3-->5.6(07/20) AST 98-->69 (07/20) ALT 110-->102(07/20) Alk Phos 354, Alb 3.4, INR 1.4, tylenol neg, Lipase 353. TropI 0.03, 0.04; proBNP 11765 vit B12 > 1000 CT head: No evidence for acute intracranial injury. Age-appropriate appearance of the brain. CT chest, abdomen: 1. Asymmetric elevation of left diaphragm compared to right. Atelectasis at left lung base. No acute change of the chest. 2. Stable cystic lesion inferior right lobe of liver. No suspicious liver lesion. 3. Cholelithiasis without acute change of gallbladder wall. 4. Atrophic right kidney. Bilateral renal cysts. No acute abnormality of kidneys. 5. Diverticulosis of colon without acute change of bowel. Status post prior surgical anastomosis at sigmoid colon intact. 6. Stable left adrenal lesion. US abdomen: Liver of mildly heterogeneous echogenicity. No intrahepatic biliary ductal dilation. 4.8 cm cyst within the right lobe with peripheral calcification. Cholelithiasis without evidence of cholecystitis. Etiology for his acute change in his clinical state that resulted from influenza , which could have affected both repiratory and GI, resulting in dehydration that led to a syncopal episode. Since he had moderate , cardiac cause is not completely ruled out. In regards to his an acute drop in his conjugated bilirubin after he was admitted, could be attributed to a choledocholithiasis that may have been resolved, but he didnt have any symptoms such as nausea, abd pain. Caroline negative. Other uncommon etiologies such as cholestasis from flu or could be entertained. He had abnormal pANCA in the past, which makes auto-immune casues a possibility, but unlikely. Plan: 1. Influenza- Swab positive. He was started on oselatamivir, which could be continued for a total of 5 days. Droplet precautions. - Monitor for any decompensation. 2. Abnormal liver chemistries- etiology is unclear in his case. Bilirubin takes much longer to be cleared from the blood, after the hepatic insult, which makes this very confusing. Alk phos remained stable, but trending down. Gall stone must have passed ?. - Trend liver chemistries. - Monitor for any s/o cholangitis. - Advance the diet for now to clears. discussed w/ Dr. Strong. - As per the pain clinic, the neurostimulator is nor MRI compatible. - May plan for ERCP, if he has worsening LFTs. 3. Syncope- - likely dehydration. - Check Echocardiogram to assess the . - Cardiology consult for advice. 3. ESRD on HD - Would continue dialysis today, and plan for another session tomorrow. - Continue the renal meds. 4. HTN - Hold antihypertensives for now. - Resume when BP allows. 5. GI bleed- - Follow guiac stool - Hb stable. Housekeepin. Diet- clears for now. Renal dialysis diet when tolerated. 2. DVT PPx- ALPS for now. 3. Code- full code. 4. Consults-Nephor, GI. Discussed the plan w/ the attending and also GI. Problem List: 1. Cholelithiasis Pain Ratin Pain Location: back Pain Goal: Pain 4 or less Pain Plan: tylenol neurostimularor Tomorrow's Labs & Rationales: cbc bep lft CodyDiego monroeshelly 07/20/17 1457: Attending Review Statement Attending Statement Attending MD Statement: examined this patient, discuss w/resident/PA/BED SPRING MAKER, agreed w/resident/PA/BED SPRING MAKER, reviewed EMR data (avail), discussed with nursing Attending Assessment/Plan: discussed with pt and family the care plan. explained them the lfts results and that jaundice is getting better. likely gallstone that passed. pt on CT shows gallstones. esrd on hd-missed his dialysis yesterday. going for dialysis today. Influenza- cont tamiflu.
--- NOTE | 2017-07-20 10:35 | Cons- Nephrology ---
General Information and HPI Consulting Request Date of Consult: 07/20/17 Requested By: Sebastián Camacho MD Reason for Consult: ESRD Source of Information: patient, family, old records Exam Limitations: no limitations History of Present Illness: The patient is an 87-year-old man with past medical history most significant for end-stage renal disease on hemodialysis, ICM with mild-moderate MS/, hypertension who initially presented to the hospital yesterday with weakness/ hypoxia. The patient was noted to have URI symptoms a/w low grade fever with +sick contact at home. noted that he was hypoxic (at baseline on home O2). Also noted to have yellowing of the skin since Monday which was new. He had a syncopal episode at home for which he was ultimately brought to the ER. In the ED, BP low 92/50 - afebrile. Found on labs to be Influenza A positive. Oddly noted on labs to have T bili of 9.[address] A/P with cholelithiasis but no ductal dilatation. T bili has since come down to 5.6. Of note, the patient missed his HD yesterday in the setting of this illness. Allergies/Medications Allergies: Coded Allergies: NO KNOWN ALLERGIES (09/28/15) Home Med List: Amlodipine Besylate (Norvasc) 10 MG TABLET 10 MG PO DAILY HTN Aspirin (Aspirin*) 81 MG TAB.CHEW 1 TAB PO DAILY cad Atorvastatin Calcium 20 MG TABLET 1 TAB PO DAILY CHOLESTEROL (Reported) Cholecalciferol (Vitamin D3) (Vitamin D) 1,000 UNIT TABLET 1 TAB PO DAILY SUPPLEMENT (Reported) Docusate Sodium (Colace) 100 MG CAPSULE 1 CAP PO BID STOOL SOFTENER (Reported ) Duloxetine HCl (Unknown Strength) CAPSULE.DR (Unknown Dose) UNKNOWN (Reported ) Epoetin Earnest (Procrit) 40,000 UNIT/ML VIAL 40,000 UNIT SC Q2W ANEMIA ( Reported) Gabapentin (Neurontin) 300 MG CAPSULE 1 CAP PO QPM NEUROPATHY (Reported) Isosorbide Mononitrate 10 MG TABLET 1 TAB PO BID HEART (Reported) Labetalol HCl 300 MG TABLET 1 TAB PO QAM BP (Reported) Labetalol HCl 300 MG TABLET 150 MG PO QPM BP (Reported) Levothyroxine Sodium 50 MCG TABLET 1 TAB PO DAILY THYROID (Reported) Lidocaine 5 % ADH..PATCH 1 PAT TOP DAILY PAIN (Reported) Nephro-Vitamins (Nephro-Becca Tablet) 0.8 MG TABLET 1 TAB PO DAILY esrd Sennosides (Senokot) 8.6 MG TABLET 1 TAB PO DAILY GI (Reported) Sevelamer Carbonate (Renvela) 800 MG TABLET 1 TAB PO WM ESRD Vitamin E (Dl,Tocopheryl Acet) (Vitamin E) 400 UNIT CAPSULE 1 CAP PO DAILY SUPPLEMENT (Reported) Current Medications: Current Medications Sig/Tiffanie Start time Last Medication Dose Route Stop Time Status Admin Aspirin 81 MG DAILY 07/20 1000 AC 07/20 PO 0822 Atorvastatin Calcium 20 MG DAILY 07/20 1000 CAN PO Cholecalciferol 1,000 IU DAILY 07/20 1000 AC 07/20 PO 0822 Gabapentin 300 MG QPM 07/20 2200 AC PO Gabapentin 300 MG ONCE ONE 07/20 0030 DC 07/20 PO 07/20 0031 0144 Ibuprofen 400 MG Q6P PRN 07/19 2230 DC PO Levothyroxine Sodium 0.05 MG DAILY 07/20 1000 AC 07/20 PO 0822 Lidocaine 1 ANI DAILY NEEDED PRN 07/20 1015 AC TOP Oseltamivir Phosphate 30 MG 2200 07/20 0001 AC 07/20 PO 07/24 0000 0040 Pantoprazole Sodium 40 MG DAILY 07/20 1000 AC 07/20 IV 0821 Pantoprazole Sodium 0 .STK-MED ONE 07/19 1553 DC IV Pantoprazole Sodium 40 MG ONCE ONE 07/19 1545 DC 07/19 IV 07/19 1546 1554 Sevelamer Carbonate 800 MG WM 07/20 0800 AC 07/20 PO 0823 Sodium Chloride 500 ML BOLUS ONE 07/19 1500 DC 07/19 IV 07/19 1559 1500 Vitamin E 400 IU DAILY 07/20 1000 AC 07/20 PO 0822 Review of Systems Review of Systems: Complete 14 point ROS neg except as per HPI Past History Travel History Traveled to [place] past 21 day No Medical History Blood Transfusion Hx: Yes Neurological: shingles left chest wall dermatome EENT: hearing loss Cardiovascular: CAD (s/p CABG x 5), diastolic CHF, hypertension, hyperlipidemia Respiratory: pneumonia, pulmonary hypertension Gastrointestinal: NONE (sigmoid resection Diaz A Ca), diverticulosis coli, HP- neg gastritis Hepatic: NONE Renal: chronic kidney disease (on HD) Musculoskeletal: osteoarthritis, TKR, neurostim low back, back surgery, CTS Psychiatric: NONE Endocrine: hypothyroidism Blood Disorders: anemia (hx Fe def/B12 def) Cancer(s): colon/rectal cancer COMPETITIVE ATHLETE/Reproductive: NONE Surgical History Surgical History: CABG, colon resection (sigmoid - Diaz A colon Ca), knee replacement, nerve stimulator 12/01/16: MALENA PERRY Family History Relations & Conditions If Any: MOTHER, , Age 58; Cause: Colon cancer. FATHER, , Age 70; Cause: Myocardial infarction. Relation not specified for: colon cancer in mother Psychosocial History Where Do You Live? Home Who Do You Live With? spouse, child (2 sons) Services at Home: Nursing, Oxygen, Physical Therapy Primary Language: Kazakh Smoking Status: Former Smoker ETOH Use: denies use Illicit Drug Use: denies illicit drug use Living Will? no Power of Medical Office Assistant Instructor/HCP? no Other Social History: to Andrea. 4 Children (3 sons & 1 dtr- 1 of the sons had TBI, another son had CVA at age 49, in the setting of PVD/smoking/hypertension). None of the patient's sons ages 50, 52, and 54 had baseline screening colonoscopy, despite the positive family history. Their daughter, Heriberto Lopez, had small benign TA removed in 05/2011. Ex > 125 pack year smoker, stopped in 1975. 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 No EtOH. No drugs. Functional Ability ADLs Independent: dressing, eating, toileting, bathing. Ambulation: independent IADLs Independent: food prep, telephone. Needs Assist: shopping, housework, finances, transportation, medication admin. 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 [employer] ECHO Results (as available) Date of last Echo 10/05/16 EF% 65 Exam & Diagnostic Data Vital Signs and I&O Vital Signs Date Time Temp Pulse Resp B/P B/P Pulse O2 O2 Flow FiO2 Mean Ox Delivery Rate 07/20 0800 95 Nasal 2.0L Cannula 07/20 0800 97.1 88 16 138/70 95 Nasal 2.0L Cannula 07/20 0400 92 Nasal 2.0L Cannula 07/20 0000 99.3 85 18 120/60 95 Nasal 2.0L Cannula 07/20 0000 95 Nasal 2.0L Cannula 07/19 2200 95 Nasal 2.0L Cannula 07/197 97.8 74 18 126/60 98 Nasal 2.0L Cannula 07/19 2000 75 18 128/58 96 Nasal 2.0L Cannula 07/19 1836 97.3 69 16 112/54 95 Nasal 2.0L Cannula 07/19 1705 82 16 113/59 94 Nasal 2.0L Cannula 07/19 1532 75 16 109/51 95 Nasal 2.0L Cannula 07/19 1500 95 Nasal 2.0L Cannula 07/19 1450 95 Nasal 2.0L Cannula 07/19 1450 97.5 76 20 92/50 90 Room Air Intake & Output 07/20 1600 07/20 0400 07/19 1600 07/19 0400 07/18 1600 07/18 0400 Intake Total 150 620 Output Total 0 Balance 150 620 Intake, IV 500 Intake, Oral 150 120 Output, Urine 0 Patient 240 lb 238 lb Weight Weight Bed scale Reported by Patient Measurement Method Physical Exam: Gen - drowsy but otherwise OK appearing Head - NCAT Eyes - mildly icteric sclera, EOMI Neck - supple, no LAD CV - RRR, no m/r/g Chest - coarse breath sounds without clear w/r/r Abd - soft, NTND Upper ext - ZOE AVF +thrill/+bruit Lower ext - no edema Skin - mild jaundice, no rash Neuro - mildly drowsy but otherwise conversive and grossly nonfocal Results Pertinent Lab Results: Laboratory Tests 07/20 07/20 07/20 UNK 0515 0500 Chemistry Sodium (137 - 145 mmol/L) 140 Potassium (3.5 - 5.1 mmol/L) 5.5 H Chloride (98 - 107 mmol/L) 100 Carbon Dioxide (22 - 30 mmol/L) 19 L Anion Gap (5 - 16) 22 H BUN (9 - 20 mg/dL) 87 H Creatinine (0.7 - 1.2 mg/dL) 8.4 *H Estimated GFR (>60 ml/min) 6 L Glucose (65 - 99 mg/dL) 88 Calcium (8.4 - 10.2 mg/dL) 8.3 L Phosphorus (2.5 - 4.5 mg/dL) 7.2 H Magnesium (1.6 - 2.3 mg/dL) 1.7 Total Bilirubin (0.2 - 1.3 mg/dL) 5.6 H AST (17 - 59 U/L) 69 H ALT (21 - 72 U/L) 102 H Troponin I (<0.11 ng/ml) 0.04 Albumin (3.5 - 5.0 g/dL) 3.4 L Vitamin B12 (239 - 931 pg/mL) Cancelled > 1000 H Cancelled Coagulation PT (9.4 - 12.5 SEC) 14.7 H INR (0.90 - 1.17) 1.40 H Hematology CBC w Diff NO MAN DIFF REQ WBC (4.8 - 10.8 /CUMM) 4.7 L RBC (4.70 - 6.10 /CUMM) 2.87 L Hgb (14.0 - 18.0 G/DL) 8.8 L Hct (42 - 52 %) 26.7 L MCV (80.0 - 94.0 FL) 92.8 MCH (27.0 - 31.0 PG) 30.6 RDW (11.5 - 14.5 %) 16.9 H Plt Count (130 - 400 /CUMM) 191 MPV (7.4 - 10.4 FL) 8.2 Gran % (42.2 - 75.2 %) 78.9 H Lymphocytes % (20.5 - 51.1 %) 10.2 L Monocytes % (1.7 - 9.3 %) 10.3 H Eosinophils % (0 - 5 %) 0.4 Basophils % (0.0 - 2.0 %) 0.2 Absolute Granulocytes (1.4 - 6.5 /CUMM) 3.7 Absolute Lymphocytes (1.2 - 3.4 /CUMM) 0.5 L Absolute Monocytes (0.10 - 0.60 /CUMM) 0.5 Absolute Eosinophils (0.0 - 0.7 /CUMM) 0 Absolute Basophils (0.0 - 0.2 /CUMM) 0 PUBS MCHC (33.0 - 37.0 G/DL) 33.0 07/20 07/19 07/19 0020 2133 1900 Chemistry Ammonia (9 - 30 umol/L) 30 Troponin I (<0.11 ng/ml) 0.03 Hematology CBC w Diff MAN DIFF ORDERED WBC (4.8 - 10.8 /CUMM) 5.0 RBC (4.70 - 6.10 /CUMM) 2.84 L Hgb (14.0 - 18.0 G/DL) 8.8 L Hct (42 - 52 %) 26.2 L MCV (80.0 - 94.0 FL) 92.4 MCH (27.0 - 31.0 PG) 30.8 RDW (11.5 - 14.5 %) 16.8 H Plt Count (130 - 400 /CUMM) 187 MPV (7.4 - 10.4 FL) 8.4 Gran % (42.2 - 75.2 %) 82.3 H Lymphocytes % (20.5 - 51.1 %) 10.7 L Monocytes % (1.7 - 9.3 %) 7.0 Eosinophils % (0 - 5 %) 0 Basophils % (0.0 - 2.0 %) 0 Absolute Granulocytes (1.4 - 6.5 /CUMM) 4.1 Segmented Neutrophils (42.2 - 75.2 %) 87 H Absolute Lymphocytes (1.2 - 3.4 /CUMM) 0.5 L Lymphocytes (20.5 - 51.1 %) 8 L Monocytes (1.7 - 9.3 %) 5 Absolute Monocytes (0.10 - 0.60 /CUMM) 0.3 Absolute Eosinophils (0.0 - 0.7 /CUMM) 0 Absolute Basophils (0.0 - 0.2 /CUMM) 0 Platelet Estimate (ADEQUATE) ADEQUATE Polychromasia 1+ Hypochromic-Microcytic 1+ Anisocytosis 1+ Target Cells 1+ Stomatocytes FEW Elliptocytes FEW PUBS MCHC (33.0 - 37.0 G/DL) 33.4 Serology Virus Culture Pending 07/19 07/19 07/19 1732 1546 1546 Chemistry Sodium (137 - 145 mmol/L) 141 Potassium (3.5 - 5.1 mmol/L) 4.9 Chloride (98 - 107 mmol/L) 100 Carbon Dioxide (22 - 30 mmol/L) 19 L Anion Gap (5 - 16) 21 H BUN (9 - 20 mg/dL) 81 H Creatinine (0.7 - 1.2 mg/dL) 7.4 *H Estimated GFR (>60 ml/min) 7 L BUN/Creatinine Ratio (7 - 25 %) 10.9 Glucose (65 - 99 mg/dL) 111 H Lactic Acid (0.7 - 2.1 mmol/L) Cancelled 1.1 Calcium (8.4 - 10.2 mg/dL) 8.2 L Iron (49 - 181 ug/dL) 45 L Ferritin (17.9 - 464 ng/mL) 497.0 H Total Bilirubin (0.2 - 1.3 mg/dL) 9.3 H Direct Bilirubin (< 0.4 mg/dL) 8.6 H AST (17 - 59 U/L) 98 H ALT (21 - 72 U/L) 110 H Alkaline Phosphatase (< 127 U/L) 354 H Ueq-V-Ftfccectxpx Pept (<125 pg/mL) 85146 H Total Protein (6.3 - 8.2 g/dL) 6.1 L Albumin (3.5 - 5.0 g/dL) 3.4 L Globulin (1.9 - 4.2 gm/dL) 2.7 Albumin/Globulin Ratio (1.1 - 2.2 %) 1.3 Amylase (30 - 110 U/L) 137 H Lipase (23 - 300 U/L) 353 H Coagulation PT (9.4 - 12.5 SEC) 14.1 H INR (0.90 - 1.17) 1.35 H APTT (25 - 37 SEC) 38 H Serology Hepatitis A IgM Ab (NONREACTIVE) NONREACTIVE Hep Bs Antigen (NONREACTIVE) NONREACTIVE Hep B Core IgM Ab Conf (NONREACTIVE) NONREACTIVE Hepatitis C Antibody (NONREACTIVE) NONREACTIVE Toxicology Acetaminophen (10.0 - 30.0 ug/mL) < 10.0 L 07/19 1440 Hematology CBC w Diff NO MAN DIFF REQ WBC (4.8 - 10.8 /CUMM) 4.7 L RBC (4.70 - 6.10 /CUMM) 2.83 L Hgb (14.0 - 18.0 G/DL) 8.9 L Hct (42 - 52 %) 25.6 L MCV (80.0 - 94.0 FL) 90.6 MCH (27.0 - 31.0 PG) 31.3 H RDW (11.5 - 14.5 %) 17.6 H Plt Count (130 - 400 /CUMM) 239 MPV (7.4 - 10.4 FL) 9.1 Gran % (42.2 - 75.2 %) 81.3 H Lymphocytes % (20.5 - 51.1 %) 10.6 L Monocytes % (1.7 - 9.3 %) 7.0 Eosinophils % (0 - 5 %) 1.1 Basophils % (0.0 - 2.0 %) 0 Absolute Granulocytes (1.4 - 6.5 /CUMM) 3.8 Absolute Lymphocytes (1.2 - 3.4 /CUMM) 0.5 L Absolute Monocytes (0.10 - 0.60 /CUMM) 0.3 Absolute Eosinophils (0.0 - 0.7 /CUMM) 0.1 Absolute Basophils (0.0 - 0.2 /CUMM) 0 PUBS MCHC (33.0 - 37.0 G/DL) 34.6 Imaging/Other Studies: CT IMPRESSION: 1. Asymmetric elevation of left diaphragm compared to right. Atelectasis at left lung base. No acute change of the chest. 2. Stable cystic lesion inferior right lobe of liver. No suspicious liver lesion. 3. Cholelithiasis without acute change of gallbladder wall. 4. Atrophic right kidney. Bilateral renal cysts. No acute abnormality of kidneys. 5. Diverticulosis of colon without acute change of bowel. Status post prior surgical anastomosis at sigmoid colon intact. 6. Stable left adrenal lesion. Assessment/Plan Assessment/Recommendations Assessment: ESRD - Missed HD yesterday in the setting of the illness. Relative hypotension today. Plan for HD without any fluid removal with plans to get back onto his routine HD schedule tomorrow. Anemia - Hg below goal. Cont BENJAMÍN. Will hold off on heparin with HD out of initial concern for GI bleed but if Hg remains stable will plan to use in future treatments. Influenza A - Got flu shot this year. Discussed ppx treatment with . MBD - Phos elevated - was not elevated at home. ?2/2 rhabdo in the setting of influenza. Can check CK level. Recommendations: -HD today - no fluid removal -Routine HD tomorrow -Needs Lidocaine cream 1hr before HD -TIW Epogen 2000U - may need to uptitrate -Low phos diet; sevelamer 800mg TIDWM -Check CK level -Tamiflu - recommmended dose is 30mg after HD for 5 days (will be getting HD today and tomorrow and then Monday) Please call [phone] with ?'s
[2017-07-20 16:00] VITALS: BP 148/70
--- NOTE | 2017-07-20 18:12 | PN- Gastroenterology ---
Assessment/Plan Assessment/Recommendations: 87 y/o male, full code, with numerous co-morbidities, remotely seen by myself in inpt GI consultation 10/02/15, with intermittent OB+ stool, not c/w outpt PillCam (*see below), post multiple EGD/colonoscopy/push enteroscopy, CKD & HD- dependent since spring 2016 (post LUE AVF 12/01/16), who presented to the [facility] 07/19/17, BIBA with syncope (witnessed by his , Andrea), hypoxia, urinary & fecal incontinence (no witnessed seizure), history of falls, fatigue, nasal congestion, symptoms of URI with cough productive of brown sputum, found to be yellow with elevated LFTs. He denied any fevers, chills, rashes, myalgias , or acute arthralgias (aside from DJD). 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 When he was incontinent, the stools were "dark" without gross BRB or hematemesis. The stools were OB positive in the ER, without fresh blood. They were later dark brown, trace OB positive, on my digital exam . Upon arrival to the [facility] 07/19/17 at 2:06 p.m., BP 92/50, P 76, R 20, T 97.5, O2 sat RA 90%, improving to 95% on 2L nc. His BP improved after IVF. He last had HD 07/17/17 & missed his HD slot 07/19/17, due to the above. He denied any nausea, vomiting, abdominal pain, early satiety, constipation, obstipation, tenesmus, or rectal bleeding. The mild diarrhea had resolved. He was on baby aspirin 81 mg daily. He denied any NSAIDs or Plavix. Regarding the dark stool, he was on iron, although apparently this was switched to IV Fe & EPO. He was not on any Pepto-Bismol. He was told he looked yellow at HD on . His GB was intact. He denied any dark urine, light stool, or pruritus. He currently denied any confusion, although he was slightly confused after the syncopal event, according to his . There was no documented head trauma or abdominal trauma. His GI ROS from above & below were otherwise negative. The patient was taking approximately 2 g of Tylenol daily. He had been off Percocet for some time. He denied any new medications or herbal medications, aside from low dose Vitamin E 400 IU daily, rxd by renal in 06/2017. He denied any additional OTC medications. He was subsequently found to have 07/19/17: *influenza type A His outpatient medication list included baby ASA, Amlodipine, Colace, Labetalol, vitamin D, isosorbide, Renvela, TORIBIO, Senokot, Colace, Atorvastatin, Vit E, Lidocaine patch, Tylenol, & Miralax. He denied any history of viral hepatitis. Apparently, he was recently started on Hep A & B vaccination series. He denied any EtOH, illicit street drugs, or IVDA. He had been transfused in the past. There was no gross hematuria, epistaxis, gum bleeding, or hemoptysis. He denied any chest pain or shortness of breath. Regarding the LFTs, there is no family history of any inherited liver disease or IBD. There is a positive family history of colon CA (pt's M- 58), & positive family history of colon adenoma (pt's dtr, Jessica). The patient's other numerous issues include prior rx narcotic-induced encephalopathy, which cleared after Narcan, chronic left chest wall pain post shingles, *chronic Fe def anemia, HTN, HLD, & ASHD post CABG 5 in 2000, [place], history of complex right-sided hepatic cysts, chronic low back pain with indwelling neurostimulator low back 05/2015, neuropathy, history of sciatica, diverticulosis coli, DJD, knee replacement, surgery, hypothyroid, carpal repair, , CHF, pulmonary HTN, ROYBN on O2-2L nc hs. 09/10/07: EGD- mild esophagitis, J-shaped stomach, H. pylori negative gastritis 10/24/07: Sigmoid resection by Dr. 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 There was no residual colon cancer found surgically, with negative lymph nodes. 09/25/07: PET- negative. 04/27/09: Colonoscopy to cecum- rectal telangiectasias of unknown etiology with clean anastomosis at 23 cm, left-sided diverticula plus removal of 2 benign tubular adenomas. 12/11/14: CEA 1.7, Fe sat 2.4%, ferritin 10.2. 12/19/14: *low IgA 78, tTG Ab- neg, DGP Ab- neg. 01/08/15: *Combined upper endoscopy to the third portion of the duodenum with biopsy, plus colonoscopy to the cecum with biopsies- normal esophageal mucosa with a minimally irregular Z-line at 40 cm, and a somewhat J-shaped stomach. Biopsy of 2 x 2 mm excrescences at the lesser curvature of the stomach- mild chronic fundic gastritis, H. pylori negative. Random biopsies of the second and third portions of the duodenum- no significant villous blunting (nothing on biopsies to suggest celiac sprue), mild chronic duodenitis, slightly nodular duodenal bulb showing Renzo gland hypertrophy and focal gastric metaplasia. Moderate left-sided diverticula, post sigmoid resection with a clean anastomosis at 23 cm, multiple sessile 5 mm polyps removed via cold biopsies, including one from the right colon showing benign tubular adenoma, two from the transverse colon showing benign sessile serrated polyp/adenoma, biopsy of the left colon unremarkable, biopsy of a small rectal polyp at 10 cm- benign hyperplastic polyp with focal sessile serrated polyp/adenoma. 05/30/15: normal LFTs, decreased ferritin 11.5, iron 24, TIBC 415, Fe sat 5.8%. 07/22/2015: normal SPEP/IPEP. 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 10/02/15: EGD to jejunum (160 cm from the incisors) with pedicolon- 1. Superficial antral erosions, without any active bleeding. 2. Superficial erosions in the duodenal bulb, without any active bleeding. 3. Clot washed clear from the post bulbar region, with normal-appearing underlying mucosa. 4. Slightly J-shaped stomach. 5. Otherwise, negative study to the jejunum. [The patient was endoscoped 3 times, with the single channel scope, the double channel scope, and the pediatric colonoscope from above, down to the jejunum, 160 cm from the incisors]. *The pt subsequently refused outpt PillCam multiple times (rule out angiodysplasias associated with CKD and/or ). The pt was most recently admitted to [facility] 10/28/16 - 11/08/16, for acute on chronic respiratory failure, multifactorial volume overload, CKD, & normocytic anemia-> EPO. 09/06/16: *HIV- neg. 09/07/16: *Hep A Ab, Hep Bs Ag, Hep B core Ab, Hep C Ab- all neg. 07/19/17: Admission labs- WBC 4.7, H/H 8.9/25.6, MCV 90.6, RDW 17.6, PLT 239, PT 14.1, INR 1.35, PTT 38, glucose 111, BUN/Cr 81/7.4, GFR 7, Na 141, K 4.9, HCO3 19, AG 21, lactate 1.1, Ca 8.2, amylase/lipase 137/353, albumin 3.4, globulin 2.7, *TBil 9.3, DBil 8.6, alk phos 354, AST 98, ALT 110, nl NH3 30, [Tylenol] < 10; Fe 45 (? no TIBC), ferritin 497, BNP 25,300, *troponin- pending, *Hep A, B, & C serologies- pending. 07/19/17: *Rapid viral influenza A/B: + influenza Type A. 07/19/17: EKG- NSR @ 76, 1st degree AVB, DC .261, normal axis (V3 missing), NSST flattening. 07/19/17: XRY-PORTABLE CHEST XRAY- No definite evidence of pulmonary edema at this time. Elevated left hemidiaphragm, chronic. Mediastinum is difficult to assess with this technique. 07/19/17: CT CHEST, ABDOMEN AND PELVIS WITHOUT CONTRAST- 1. Asymmetric elevation of left diaphragm compared to right. Atelectasis at left lung base. No acute change of the chest. 2. Stable cystic lesion inferior right lobe of liver. No suspicious liver lesion. No ascites. 3. Cholelithiasis without acute change of gallbladder wall. No dilated ducts. 4. Atrophic right kidney. Bilateral renal cysts. No acute abnormality of kidneys. 5. Diverticulosis of colon without acute change of bowel. Status post prior surgical anastomosis at sigmoid colon intact. 6. Stable left adrenal lesion. 7. Small B/L IH. 8. DJD. Dextroscoliosis mid-L spine. 07/19/17: RUQ ABDOMINAL ULTRASOUND (LIMITED)- Liver of mildly heterogeneous echogenicity. No intrahepatic biliary ductal dilation. CBD 4 mm. Old 4.8 cm cyst within the right lobe with peripheral calcification. Cholelithiasis without evidence of cholecystitis. 07/19/17: CT HEAD WO IV CONTRAST- No evidence for acute intracranial injury. Age-appropriate appearance of the brain. Upon completion of the 07/19/17: GI consult, I felt that most likely, the patient's LFTs, which were more cholestatic > transaminitis, were most likely secondary to some systemic process, probably infectious in nature. The 07/19/17: *Rapid viral influenza A/B: + influenza Type A was noted, & perhaps this is the source. The patient was on no new medications to cause the above. He was on Atorvastatin, which usually causes more of a transaminitis than cholestasis. Amlodipine can cause hepatitis. The hypotension may have contributed to the LFTs , as well. I felt that his cholelithiasis was incidental in nature, without any cholecystitis, choledocholithiasis, or dilated ducts. His hepatic cyst was incidental as well. I felt that the yield of an MRCP would be low, and the patient has an implanted neurostimulator, probably prohibiting this. I did not feel that the risk:benefit ratio warranted the more invasive ERCP. Admission [ Tylenol] < 10. *With regards to the anemia, which is chronic in nature, on my exam he had brown , trace OB positive stool. He has had an extensive GI workup for the above, including relatively recent EGD/colonoscopy/push enteroscopy to the jejunum. The patient was repeatedly noncompliant with a suggested outpt PillCam. He certainly could have small bowel angiodysplasias, which could be associated with CKD and/or (Heyde's syndrome). Clinically, I did not feel that he was actively GI bleeding to the point that would warrant a repeat EGD. He was hypotensive, which resolved. I did not think this was from the mildly OB positive stool, but rather from dehydration and possible sepsis. 07/19/17: *Viral culture- pending. 07/19/17: *Hep A Ab, Hep Bs Ag, Hep B core Ab, Hep C Ab- all negative. 07/20/17: 12:20 a.m.- WBC 5.0 (87S/8L/5M), H/H 8.8/26.2, MCV 92.4, RDW 16.8, PLT 187, 07/20/17: 5:15 a.m.- WBC 4.7, H/H 8.8/26.7, MCV 92.8, RDW 16.9, PLT 191, PT 14.7 , INR 1.40, glucose 88, BUN/Cr 87/8.4, GFR 6, Na 140, K 5.5, HCO3 19, AG 22, Ca 8.3, PO4 7.2, Mg 1.7, alb 3.4, TBil 5.6, alk phos 314, AST 69, ALT 102, CK 127, B12 > 1000, troponin- neg x 2. *The patient was started on Tamiflu 07/20/17. The patient's Hgb remained relatively stable for him. His LFTs were improving. Numerous consultants' notes appreciated (i.e.- ICU, renal, cardiology, etc.). The patient's implantable neurostimulator was not compatible with MRCP. As his LFTs were coming down, I did not push for ERCP. He had no signs of cholangitis, nor any dilated ducts. Again, ? if LFTs were rx in nature to a systemic process, such as influenza A. He remained on EPO. Pantoprazole was continued. Atrovastatin was held. Ibuprofen was never given, & D/C'd. He remained on baby ASA. *As of 07/20/17, the patient remained hemodynamically stable & currently afebrile (T 97.2, Tm 99.3), with O2 sat 2L nc- 97%. He received HD 07/20/17, as he missed his routine HD 1 day prior. He denied any over GI bleeding (dark brown stool, trace OB+ on my 07/19/17: digital exam). He denied any subjecive fevers, chills, abdominal pain, nausea, vomiting, or diarrhea. He remained with a cough productive of brown sputum. He had no CP or SOB. His fatigue was improving & he was tolerating clears po. *SUGGEST: *Clears po & advance renal diet as tolerated. Implantable neurostimulator is incompatible with MRCP, & risk:benefit ratio currently does not warrant ERCP (no dilated ducts on CT/sono; LFTs declining- ? if systemic in nature, from influenza A). Await 07/19/17: viral cultures. *Hold Atorvastatin for now. HD & EPO (+/- IV Fe), per renal. *Serial LFTs, INR, & CBC. Consider checking urine for Mycoplasma/Legionella Ag (atypical PNA can be associated with elevated LFTs) . *Tamiflu 30 mg after HD x 5d (dosing per renal). Consider checking EBV/CMV/ mono spot (but would expect more of a transaminitis with this). Consider additional serologies (i.e.- DORA, AMA, etc.), but probably low yield. If LFTs persist, may ultimately need liver biopsy, but I anticipate these will gradually resolve. Follow-up CBC, but no plans for inpatient EGD, unless the patient actively bleeds. T&C 2u PRBC. Keep Hgb > 8 (hx ASHD). Empiric PPI. If anemia worsens, consider holding ASA 81 mg daily, if okay with cardiology. Outpt PillCam, as patient allows. *Avoid NSAIDS. DVT prophylaxis with mechanical ALPS. Keep Tylenol to < 2g daily. Avoid hepatotoxins. By dates, one could consider a repeat colonoscopy in 12/2017, 3 years after his last study, in view of his hx colonic TA/SSP, personal hx colon Ca, & +FHx colon Ca. However, he will be 88 y/ o then, & I don't feel this would be warranted by the risk:benefit ratio. Further GI recommendations to follow, depending on clinical course. The above was again discussed with the medical house staff, the patient, & the patient's , Andrea, at the bedside in the ICU. Problem List: 1. Elevated LFTs 2. Hypotension 3. Influenza A 4. Syncope 5. Jaundice 6. Cholelithiasis 7. Hepatic cyst 8. Iron (Fe) deficiency anemia 9. Diverticulosis of colon 10. History of colon cancer 11. Positive occult stool blood test 12. Family history of colon cancer in mother Subjective Subjective: 07/19/17: *Viral culture- pending. 07/19/17: *Hep A Ab, Hep Bs Ag, Hep B core Ab, Hep C Ab- all negative. 07/20/17: 12:20 a.m.- WBC 5.0 (87S/8L/5M), H/H 8.8/26.2, MCV 92.4, RDW 16.8, PLT 187, 07/20/17: 5:15 a.m.- WBC 4.7, H/H 8.8/26.7, MCV 92.8, RDW 16.9, PLT 191, PT 14.7 , INR 1.40, glucose 88, BUN/Cr 87/8.4, GFR 6, Na 140, K 5.5, HCO3 19, AG 22, Ca 8.3, PO4 7.2, Mg 1.7, alb 3.4, TBil 5.6, alk phos 314, AST 69, ALT 102, CK 127, B12 > 1000, troponin- neg x 2. *The patient was started on Tamiflu 07/20/17. The patient's Hgb remained relatively stable for him. His LFTs were improving. Numerous consultants' notes appreciated (i.e.- ICU, renal, cardiology, etc.). The patient's implantable neurostimulator was not compatible with MRCP. As his LFTs were coming down, I did not push for ERCP. He had no signs of cholangitis, nor any dilated ducts. Again, ? if LFTs were rx in nature to a systemic process, such as influenza A. He remained on EPO. Pantoprazole was continued. Atrovastatin was held. Ibuprofen was never given, & D/C'd. He remained on baby ASA. *As of 07/20/17, the patient remained hemodynamically stable & currently afebrile (T 97.2, Tm 99.3), with O2 sat 2L nc- 97%. He received HD 07/20/17, as he missed his routine HD 1 day prior. He denied any over GI bleeding (dark brown stool, trace OB+ on my 07/19/17: digital exam). He denied any subjecive fevers, chills, abdominal pain, nausea, vomiting, or diarrhea. He remained with a cough productive of brown sputum. He had no CP or SOB. His fatigue was improving & he was tolerating clears po. Review of Systems: Full 14 point ROS otherwise N/C, & as per HPI. Review of Systems Constitutional: Reports: malaise & weakness-> improving Denies: chills, diaphoresis, fever, unexplained weight loss. EENTM: Reports:chronic hearing changes. Denies: no symptoms (nasal congestion), blurred vision, double vision, visual changes, eye pain, eye drainage, eye tearing, icterus, ear discharge, ear pain, ear redness, nasal congestion, epistaxis, nasal pain, throat pain, throat swelling, mouth pain, tooth pain. Cardiovascular: Reports: peripheral edema (trace), syncope-> resolved. Denies: chest pain, edema, orthopena, palpitations. Respiratory: Reports: cough (brown sputum), sputum production. Denies: hemoptysis, orthopnea, short of breath, stridor, wheezing. GI: Reports: melena (? dark stool- resolved). Denies: abdominal pain, bloating, constipation, diarrhea, distention, bowel incontinence, nausea, bloody stool, changes in stool, vomiting, steatorrhea. Genitourinary: Denies: discharge, dysuria, frequency, hematuria, hesitation, nocturia, pain, urgency. Musculoskeletal: Reports: back pain (chronic), joint pain (DJD). Denies: gout, joint swelling, muscle pain, muscle stiffness, neck pain. Skin: Reports: jaundice-> improving. Denies: cysts, change in skin color, change in hair/nails, dryness, erythema, lesions, lymphangitis, lumps, moles, rash. Neurological/Psychological: Reports: neuropathy & hx falls Denies: anxiety, ataxia, cognitive dysfunction, confusion, depressed, dementia, emotional problems, headache, numbness, paresthesia, pre-existing deficit, petit mal seizures, tingling, tremors, tonic-clonic seizures, unable to move lower ext , unable to move upper ext, weakness. Hematologic/Endocrine: Denies: bruising, bleeding, polyuria, polydipsia. Immunologic/Allergic: Denies: splenectomy, HIV/AIDS, lymphadenopathy. All Other Systems: Reviewed and Negative Objective Vital Signs and I&Os Vital Signs Date Time Temp Pulse Resp B/P B/P Pulse O2 O2 Flow FiO2 Mean Ox Delivery Rate 07/20 1600 97 Nasal 2.0L Cannula 07/20 1600 97.2 89 14 148/70 95 Nasal 2.0L Cannula 07/20 0800 95 Nasal 2.0L Cannula 07/20 0800 97.1 88 16 138/70 95 Nasal 2.0L Cannula 07/20 0400 92 Nasal 2.0L Cannula 07/20 0000 99.3 85 18 120/60 95 Nasal 2.0L Cannula 07/20 0000 95 Nasal 2.0L Cannula 07/19 2200 95 Nasal 2.0L Cannula 07/19 2107 97.8 74 18 126/60 98 Nasal 2.0L Cannula 07/19 2000 75 18 128/58 96 Nasal 2.0L Cannula 07/19 1836 97.3 69 16 112/54 95 Nasal 2.0L Cannula Intake & Output 07/20 1600 07/20 0400 07/19 1600 07/19 0400 07/18 1600 07/18 0400 Intake Total 750 620 Output Total 0 Balance 750 620 Intake, IV 500 Intake, Oral 750 120 Output, Urine 0 Patient 240 lb 238 lb Weight Weight Bed scale Reported by Patient Measurement Method Physical Exam: Well-developed, well-nourished, chronically ill appearing, obese male in no distress. Sclera: less icteric. Conjunctiva slightly pale. Oropharynx clear. Poor dentition. There is no adenopathy, thyromegaly, or JVD. No peripheral stigmata of inflammatory bowel disease or chronic liver disease on exam. No spiders on the anterior chest wall. No gynecomastia. No CVA tenderness. No spine tenderness. Dextroscoliosis of mid-L spine. Tender left lateral chest wall (post -herpetic neuralgia), without gross zoster. Lungs: clear to A&P, with slight decreased BS at the left base. Heart exam: regular rate rhythm S1 and S2, with I/ systolic murmur. s/p CABG. Abdominal exam: normal bowel sounds, obese, soft belly, nontender, without guarding or rebound. Small B/L IH, otherwise, no mass. No organomegaly. Negative Mccauley sign. No fluid shift. No pulsatile mass. No epigastric bruit. Digital rectal exam done by myself 07/19/17: Dark brown stool (on iron), trace OB-positive, without mass. Smooth enlarged prostate. No nodules. No external hemorrhoids. No fissure. No bright red blood. Extremities: without cyanosis or clubbing. Trace pedal edema B/L. LUE AVF , with + thrill, + bruit. Positive DJD. No palpable cords. No palmar erythema. No Dupuytren's conttractures. Distal pulses 1+ bilaterally. DTRs 1+ bilaterally. Alert and oriented x 3. Less lethargic. [place]. Right handed. Motor 4 /5 B/L. CN II-XII intact. No tremor. No asterixis. Current Medications: Current Medications Sig/Tiffanie Start time Last Medication Dose Route Stop Time Status Admin Aspirin 81 MG DAILY 07/20 1000 AC 07/20 PO 08 Atorvastatin Calcium 20 MG DAILY 07/20 1000 CAN PO Cholecalciferol 1,000 IU DAILY 07/20 1000 AC 07/20 PO 0822 Epoetin Earnest 2,000 UNIT TUES THURS SAT 07/20 1424 AC 07/20 IV 1716 Gabapentin 300 MG QPM 07/20 2200 AC PO Gabapentin 300 MG ONCE ONE 07/20 0030 DC 07/20 PO 07/20 0031 0144 Ibuprofen 400 MG Q6P PRN 07/19 2230 DC PO Levothyroxine Sodium 0.05 MG DAILY 07/20 1000 AC 07/20 PO 0822 Lidocaine 1 ANI DAILY NEEDED PRN 07/20 1015 AC TOP Lidocaine/Prilocaine 1 ANI DAILY PRN 07/20 1315 AC 07/20 TOP 1300 Oseltamivir Phosphate 30 MG 0 07/20 0001 AC 07/20 PO 07/24 0000 0040 Pantoprazole Sodium 40 MG DAILY 07/20 1000 AC 07/20 IV 0821 Paricalcitol 2 MCG ONCE ONE 07/20 1445 DC 07/20 IV 07/20 1446 1716 Sevelamer Carbonate 800 MG WM 07/20 0800 AC 07/20 PO 1719 Vitamin E 400 IU DAILY 07/20 1000 AC 07/20 PO 0822 Results Pertinent Lab Results: Laboratory Tests 07/20 07/20 07/20 UNK 0515 0500 Chemistry Sodium (137 - 145 mmol/L) 140 Potassium (3.5 - 5.1 mmol/L) 5.5 H Chloride (98 - 107 mmol/L) 100 Carbon Dioxide (22 - 30 mmol/L) 19 L Anion Gap (5 - 16) 22 H BUN (9 - 20 mg/dL) 87 H Creatinine (0.7 - 1.2 mg/dL) 8.4 *H Estimated GFR (>60 ml/min) 6 L Glucose (65 - 99 mg/dL) 88 Calcium (8.4 - 10.2 mg/dL) 8.3 L Phosphorus (2.5 - 4.5 mg/dL) 7.2 H Magnesium (1.6 - 2.3 mg/dL) 1.7 Total Bilirubin (0.2 - 1.3 mg/dL) 5.6 H AST (17 - 59 U/L) 69 H ALT (21 - 72 U/L) 102 H Alkaline Phosphatase (< 127 U/L) 314 H Creatine Kinase (55 - 170 U/L) 127 Troponin I (<0.11 ng/ml) 0.04 Albumin (3.5 - 5.0 g/dL) 3.4 L Vitamin B12 (239 - 931 pg/mL) Cancelled > 1000 H Cancelled Coagulation PT (9.4 - 12.5 SEC) 14.7 H INR (0.90 - 1.17) 1.40 H Hematology CBC w Diff NO MAN DIFF REQ WBC (4.8 - 10.8 /CUMM) 4.7 L RBC (4.70 - 6.10 /CUMM) 2.87 L Hgb (14.0 - 18.0 G/DL) 8.8 L Hct (42 - 52 %) 26.7 L MCV (80.0 - 94.0 FL) 92.8 MCH (27.0 - 31.0 PG) 30.6 RDW (11.5 - 14.5 %) 16.9 H Plt Count (130 - 400 /CUMM) 191 MPV (7.4 - 10.4 FL) 8.2 Gran % (42.2 - 75.2 %) 78.9 H Lymphocytes % (20.5 - 51.1 %) 10.2 L Monocytes % (1.7 - 9.3 %) 10.3 H Eosinophils % (0 - 5 %) 0.4 Basophils % (0.0 - 2.0 %) 0.2 Absolute Granulocytes (1.4 - 6.5 /CUMM) 3.7 Absolute Lymphocytes (1.2 - 3.4 /CUMM) 0.5 L Absolute Monocytes (0.10 - 0.60 /CUMM) 0.5 Absolute Eosinophils (0.0 - 0.7 /CUMM) 0 Absolute Basophils (0.0 - 0.2 /CUMM) 0 PUBS MCHC (33.0 - 37.0 G/DL) 33.0 07/20 07/19 07/19 0020 2133 1900 Chemistry Ammonia (9 - 30 umol/L) 30 Troponin I (<0.11 ng/ml) 0.03 Hematology CBC w Diff MAN DIFF ORDERED WBC (4.8 - 10.8 /CUMM) 5.0 RBC (4.70 - 6.10 /CUMM) 2.84 L Hgb (14.0 - 18.0 G/DL) 8.8 L Hct (42 - 52 %) 26.2 L MCV (80.0 - 94.0 FL) 92.4 MCH (27.0 - 31.0 PG) 30.8 RDW (11.5 - 14.5 %) 16.8 H Plt Count (130 - 400 /CUMM) 187 MPV (7.4 - 10.4 FL) 8.4 Gran % (42.2 - 75.2 %) 82.3 H Lymphocytes % (20.5 - 51.1 %) 10.7 L Monocytes % (1.7 - 9.3 %) 7.0 Eosinophils % (0 - 5 %) 0 Basophils % (0.0 - 2.0 %) 0 Absolute Granulocytes (1.4 - 6.5 /CUMM) 4.1 Segmented Neutrophils (42.2 - 75.2 %) 87 H Absolute Lymphocytes (1.2 - 3.4 /CUMM) 0.5 L Lymphocytes (20.5 - 51.1 %) 8 L Monocytes (1.7 - 9.3 %) 5 Absolute Monocytes (0.10 - 0.60 /CUMM) 0.3 Absolute Eosinophils (0.0 - 0.7 /CUMM) 0 Absolute Basophils (0.0 - 0.2 /CUMM) 0 Platelet Estimate (ADEQUATE) ADEQUATE Polychromasia 1+ Hypochromic-Microcytic 1+ Anisocytosis 1+ Target Cells 1+ Stomatocytes FEW Elliptocytes FEW PUBS MCHC (33.0 - 37.0 G/DL) 33.4 Serology Virus Culture Pending 07/19 07/19 07/19 1732 1546 1546 Chemistry Sodium (137 - 145 mmol/L) 141 Potassium (3.5 - 5.1 mmol/L) 4.9 Chloride (98 - 107 mmol/L) 100 Carbon Dioxide (22 - 30 mmol/L) 19 L Anion Gap (5 - 16) 21 H BUN (9 - 20 mg/dL) 81 H Creatinine (0.7 - 1.2 mg/dL) 7.4 *H Estimated GFR (>60 ml/min) 7 L BUN/Creatinine Ratio (7 - 25 %) 10.9 Glucose (65 - 99 mg/dL) 111 H Lactic Acid (0.7 - 2.1 mmol/L) Cancelled 1.1 Calcium (8.4 - 10.2 mg/dL) 8.2 L Iron (49 - 181 ug/dL) 45 L Ferritin (17.9 - 464 ng/mL) 497.0 H Total Bilirubin (0.2 - 1.3 mg/dL) 9.3 H Direct Bilirubin (< 0.4 mg/dL) 8.6 H AST (17 - 59 U/L) 98 H ALT (21 - 72 U/L) 110 H Alkaline Phosphatase (< 127 U/L) 354 H Ngl-D-Naokibtetir Pept (<125 pg/mL) 35860 H Total Protein (6.3 - 8.2 g/dL) 6.1 L Albumin (3.5 - 5.0 g/dL) 3.4 L Globulin (1.9 - 4.2 gm/dL) 2.7 Albumin/Globulin Ratio (1.1 - 2.2 %) 1.3 Amylase (30 - 110 U/L) 137 H Lipase (23 - 300 U/L) 353 H Coagulation PT (9.4 - 12.5 SEC) 14.1 H INR (0.90 - 1.17) 1.35 H APTT (25 - 37 SEC) 38 H Serology Hepatitis A IgM Ab (NONREACTIVE) NONREACTIVE Hep Bs Antigen (NONREACTIVE) NONREACTIVE Hep B Core IgM Ab Conf (NONREACTIVE) NONREACTIVE Hepatitis C Antibody (NONREACTIVE) NONREACTIVE Toxicology Acetaminophen (10.0 - 30.0 ug/mL) < 10.0 L 07/19 1440 Hematology CBC w Diff NO MAN DIFF REQ WBC (4.8 - 10.8 /CUMM) 4.7 L RBC (4.70 - 6.10 /CUMM) 2.83 L Hgb (14.0 - 18.0 G/DL) 8.9 L Hct (42 - 52 %) 25.6 L MCV (80.0 - 94.0 FL) 90.6 MCH (27.0 - 31.0 PG) 31.3 H RDW (11.5 - 14.5 %) 17.6 H Plt Count (130 - 400 /CUMM) 239 MPV (7.4 - 10.4 FL) 9.1 Gran % (42.2 - 75.2 %) 81.3 H Lymphocytes % (20.5 - 51.1 %) 10.6 L Monocytes % (1.7 - 9.3 %) 7.0 Eosinophils % (0 - 5 %) 1.1 Basophils % (0.0 - 2.0 %) 0 Absolute Granulocytes (1.4 - 6.5 /CUMM) 3.8 Absolute Lymphocytes (1.2 - 3.4 /CUMM) 0.5 L Absolute Monocytes (0.10 - 0.60 /CUMM) 0.3 Absolute Eosinophils (0.0 - 0.7 /CUMM) 0.1 Absolute Basophils (0.0 - 0.2 /CUMM) 0 PUBS MCHC (33.0 - 37.0 G/DL) 34.6 Imaging/Other Studies: 07/19/17: EKG- NSR @ 76, 1st degree AVB, DC .261, normal axis (V3 missing), NSST flattening. 07/19/17: XRY-PORTABLE CHEST XRAY- No definite evidence of pulmonary edema at this time. Elevated left hemidiaphragm, chronic. Mediastinum is difficult to assess with this technique. 07/19/17: CT CHEST, ABDOMEN AND PELVIS WITHOUT CONTRAST- 1. Asymmetric elevation of left diaphragm compared to right. Atelectasis at left lung base. No acute change of the chest. 2. Stable cystic lesion inferior right lobe of liver. No suspicious liver lesion. No ascites. 3. Cholelithiasis without acute change of gallbladder wall. No dilated ducts. 4. Atrophic right kidney. Bilateral renal cysts. No acute abnormality of kidneys. 5. Diverticulosis of colon without acute change of bowel. Status post prior surgical anastomosis at sigmoid colon intact. 6. Stable left adrenal lesion. 7. Small B/L IH. 8. DJD. Dextroscoliosis mid-L spine. 07/19/17: RUQ ABDOMINAL ULTRASOUND (LIMITED)- Liver of mildly heterogeneous echogenicity. No intrahepatic biliary ductal dilation. CBD 4 mm. Old 4.8 cm cyst within the right lobe with peripheral calcification. Cholelithiasis without evidence of cholecystitis. 07/19/17: CT HEAD WO IV CONTRAST- No evidence for acute intracranial injury. Age-appropriate appearance of the brain.
[2017-07-20 23:00] VITALS: BP 120/60
--- NOTE | 2017-07-21 05:59 | PN- Housestaff ---
Diandra Cassidy 07/21/17 0556: Subjective Follow-up For: - Abnormal liver chemistries - Influenza A swab positive - ESRD on HD - HTN - Syncope Complaints: no complaints Subjective: He was comfortable. No new complaints. He had a low grade temp, but other vitals signs remained stable. No chest pain, shortness of breath, palpitations. He tolerated clear liquid diet yesterday, and didnt have any nausea, vomiting or abdominal pain. No diarrhea. Review of Systems Constitutional: Reports: see HPI. Objective Last 24 Hrs of Vital Signs/I&O Vital Signs Date Time Temp Pulse Resp B/P B/P Pulse O2 O2 Flow FiO2 Mean Ox Delivery Rate 07/21 0000 94 Nasal 2.0L Cannula 07/20 2300 99.9 92 24 120/60 93 Nasal 2.0L Cannula 07/20 2000 93 Nasal 2.0L Cannula 07/20 1600 97 Nasal 2.0L Cannula 07/20 1600 97.2 89 14 148/70 95 Nasal 2.0L Cannula 07/20 0800 95 Nasal 2.0L Cannula 07/20 0800 97.1 88 16 138/70 95 Nasal 2.0L Cannula Intake & Output 07/21 0800 07/21 0000 07/20 1600 Intake Total 100 600 Output Total 200 Balance -100 600 Intake, Oral 100 600 Output, Urine 200 Physical Exam General Appearance: Alert, Oriented X3, Cooperative, No Acute Distress Skin: No Rashes Skin Temp/Moisture Exam: Warm/Dry Sepsis Skin Exam (color): Normal for Ethnicity, Cyanotic HEENT: Atraumatic, PERRLA Neck: Supple, No JVD, No thryomegaly Lymphatic: Axillary nl Cardiovascular: Regular Rate, Normal S1, Normal S2 Lungs: Normal Air Movement Abdomen: Normal Bowel Sounds, Soft, No Tenderness, No Hepatospenomegaly Neurological: Normal Speech, Strength at 5/5 X4 Ext, Normal Tone, Sensation Intact Extremities: No Clubbing, No Cyanosis, No Edema, Normal Pulses Vascular: Pulses Symmetrical Current Medications: Current Medications Sig/Tiffanie Start time Last Medication Dose Route Stop Time Status Admin Aspirin 81 MG DAILY 07/20 1000 AC 07/20 PO 08 Cholecalciferol 1,000 IU DAILY 07/20 1000 AC 07/20 PO 08 Epoetin Earnest 2,000 UNIT TU TH SAT 07/20 1424 AC 07/20 IV 1716 Gabapentin 300 MG QPM 07/20 2200 AC 07/20 PO 2128 Levothyroxine Sodium 0.05 MG DAILY 07/20 1000 AC 07/20 PO 0822 Lidocaine 1 ANI DAILY NEEDED PRN 07/20 1015 AC TOP Lidocaine/Prilocaine 1 ANI DAILY PRN 07/20 1315 AC 07/21 TOP 0603 Oseltamivir Phosphate 30 MG 2200 07/20 0001 AC 07/20 PO 07/24 0000 2128 Pantoprazole Sodium 40 MG DAILY 07/20 1000 AC 07/20 IV 0821 Paricalcitol 2 MCG ONCE ONE 07/20 1445 DC 07/20 IV 07/20 1446 1716 Sevelamer Carbonate 800 MG WM 07/20 0800 AC 07/20 PO 1719 Vitamin E 400 IU DAILY 07/20 1000 AC 07/20 PO 08 Last 24 Hrs of Lab/Jamel Results Last 24 Hrs of Labs/Mics: Laboratory Tests 07/21/17 0545: Anion Gap 17 H, Estimated GFR 10 L, BUN/Creatinine Ratio 8.6, Total Bilirubin 8.8 H, Direct Bilirubin 8.0 H, AST 90 H, ALT 102 H, Alkaline Phosphatase 364 H, Total Protein 6.0 L, Albumin 3.3 L, CBC w Diff NO MAN DIFF REQ, RBC 2.73 L, MCV 93.7, MCH 30.9, RDW 16.5 H, MPV 8.3, Gran % 80.5 H, Lymphocytes % 7.4 L, Monocytes % 10.8 H, Eosinophils % 1.2, Basophils % 0.1, Absolute Granulocytes 4.5, Absolute Lymphocytes 0.4 L, Absolute Monocytes 0.6, Absolute Eosinophils 0.1, Absolute Basophils 0, PUBS MCHC 33.0 Microbiology 07/20 2099 URINE ROUT: Legionella Antigen - COMP 07/20 2099 URINE ROUT: Streptococcus pneumoniae Antigen (M - COMP Assessment/Plan Assessment: Mr Martinez has a PMHx of coronary artery disease s/p CABG, colon cancer status post resection and anastomosis, HFpEF uses nocturnal O2 as needed, moderate , ROBYN not on CPAP, chronic back pain w/ neurostimulator in place, ESRD on HD was brought in after he was found to be hypoxemic 84% while he was sitting in his chair, and subsequently had a syncopal episode likely from dehydration. At the time of admission, he was afebrile, pulse in 70s, RR 20, BP 113/59, saturating 90% on 2 L nasal cannula. Overnight, vitals remained stable. Tm 99.3, BP was stable SBP 120-130s. Infl A +. Pertinent lab data: WBC: 4.7, Hb 8.8 Na 140, K 5.5, HCO3 19, AG 22 ( likely metabolic ). Sr Cr 7.4-->8.4( 07/20)-->5.6(07/21) Tbili 9.3-->5.6(07/20)-->8.8(07/21) AST 98-->69 (07/20)-->90(07/21) ALT 110-->102(07/20)-->102(07/21) Alk Phos 354-->314-->364(07/21), Alb 3.4, INR 1.4, tylenol neg, Lipase 353. TropI 0.03, 0.04; proBNP 21007 vit B12 > 1000 CT head: No evidence for acute intracranial injury. Age-appropriate appearance of the brain. CT chest, abdomen: 1. Asymmetric elevation of left diaphragm compared to right. Atelectasis at left lung base. No acute change of the chest. 2. Stable cystic lesion inferior right lobe of liver. No suspicious liver lesion. 3. Cholelithiasis without acute change of gallbladder wall. 4. Atrophic right kidney. Bilateral renal cysts. No acute abnormality of kidneys. 5. Diverticulosis of colon without acute change of bowel. Status post prior surgical anastomosis at sigmoid colon intact. 6. Stable left adrenal lesion. US abdomen: Liver of mildly heterogeneous echogenicity. No intrahepatic biliary ductal dilation. 4.8 cm cyst within the right lobe with peripheral calcification. Cholelithiasis without evidence of cholecystitis. Etiology for his acute change in his clinical state that resulted from influenza , which could have affected both repiratory and GI, resulting in dehydration that led to a syncopal episode. Since he had moderate , cardiac cause is not completely ruled out. In regards to his an acute drop in his conjugated bilirubin after he was admitted, could be attributed to a choledocholithiasis that may have been resolved, but he didnt have any symptoms such as nausea, abd pain. [place] negative. Other uncommon etiologies such as cholestasis from flu or could be entertained. He had abnormal pANCA in the past, which makes auto-immune casues a possibility, but unlikely. Plan: 1. Influenza- He was started on oseltamivir, which could be continued. Would consider increasing the dose, if needed; after discussing with the cartridge filler. 2. Abnormal liver chemistries- Since the liver chemistries showed improvement, we thought that the etiology was likely due to a gall stone that may have passed. Increase in bilirubin and worsening liver enzymes indicate some kind of systemic process such as infection causing biliary stasis. - Monitor vitals closely. If he as fever or has any abdominal pain, would consider ERCP - At this time, we plan to monitor closely on the general medicine floor. Pt is physically in the ICU. - Dr Obrien is advising. - Check US abdomen in the am. 3. Syncope- Likely from dehydration. - Was evaluated by the wind turbine machinist. - Echocardiogram done on 07/20 showed aortic stenosis (moderate). 3. ESRD on HD - He underwent a session of HD this am. - Renal dialysis diet. 4. HTN - Hold antihypertneisves for now. - Would restart if needed. 5. GI bleed- - H&H stable - Monitor closely. Housekeepin. Diet- Renal dialysis diet. 2. DVT PPx- ALPS for now. 3. Code- full code. 4. Consults-Nephor, GI. Problem List: 1. Influenza A 2. Elevated LFTs Pain Ratin Pain Location: back Pain Goal: Pain 4 or less Pain Plan: tylenol neurostimularo Tomorrow's Labs & Rationales: cbc bep lft inr Radha Cody 07/21/17 1430: Attending MD Review Statement Attending Statement Attending MD Statement: examined this patient, discuss w/resident/PA/WET SANDER, agreed w/resident/PA/WET SANDER, reviewed EMR data (avail), discussed with nursing Attending Assessment/Plan: pt seen and examined. LFTs fluctuating and up today. Appreciated GI input. Plan is to f/u on LFTs an repeat RUQ ultrasound over the weekend and GI will f/u on those along with us and decide if it warrants ERCP. plan is to transfer him to [facility] when bed becomes available.. d/w pt the care plan.
[2017-07-21 06:35] LABS: ABSOLUTE BASOPHIL COUNT 0 /CUMM (0.0-0.2); ABSOLUTE EOSINOPHIL COUNT 0.1 /CUMM (0.0-0.7); ABSOLUTE GRANULOCYTE CT 4.5 /CUMM (1.4-6.5); ABSOLUTE LYMPH COUNT 0.4 /CUMM (1.2-3.4); ABSOLUTE MONOCYTE COUNT 0.6 /CUMM (0.10-0.60); BASOPHIL % 0.1 % (0.0-2.0); EOSINOPHIL % 1.2 % (0-5); GRANULOCYTE % 80.5 % (42.2-75.2); HEMATOCRIT 25.6 % (42-52); MEAN CORPUSCULAR HGB 30.9 PG (27.0-31.0); MEAN CORPUSCULAR VOLUME 93.7 FL (80.0-94.0); MEAN PLATELET VOLUME 8.3 FL (7.4-10.4); PLATELET COUNT 182 /CUMM (130-400); RBC DISTRIBUTION WIDTH 16.5 % (11.5-14.5); RED BLOOD CELL CT 2.73 /CUMM (4.70-6.10); WHITE BLOOD CELL COUNT 5.7 /CUMM (4.8-10.8)
--- NOTE | 2017-07-21 07:58 | ECHOCARDIOGRAM REPORT ---
IRIS DREW Age: 87 : 1930 Gender: M Exam Date: 07/20/2017 19:03 Exam Location: [facility] Ht (in): 75 Wt (lb): 239 BSA: 2.42 BP: 146 / 68 Ordering Physician: Diandra Cassidy MD Referring Physician: Andrea Levine MD Technologist: Gracia Betts [facility] Room Number: 101 Indications: HEART FAILURE Rhythm: Other Technical Quality: fair FINDINGS Left Ventricle Normal global left ventricular size, wall thickness, systolic function with no obvious regional wall motion abnormalities. Normal left ventricular ejection fraction estimated at 60-65%. Right Ventricle Normal right ventricular size and function. Right Atrium Normal right atrial size. Left Atrium Mild to moderate left atrial dilatation. Mitral Valve Moderate mitral annular calcification. [id number] mitral stenosis. Aortic Valve Aortic valve not well visualized. [id number] aortic stenosis. Tricuspid Valve Tricuspid valve not well visualized, grossly normal. Moderate tricuspid regurgitation. Right ventricular systolic pressure estimated to be elevated at 50 mmHg. Pulmonic Valve Pulmonic valve not well visualized, grossly normal. Pericardium No pericardial effusion. Great Vessels Normal size aortic root. CONCLUSIONS Normal left ventricular systolic function. Left atrial enlargement. Mild to moderate Aortic stenosis. Mild to moderate Mitral stenosis. Moderate Pulmonary hypertension. Andrea Levine M.D. (Electronically Signed) Final Date: 21 July 2017 07:57 MEASUREMENTS (Male / Female) Normal Values 2D ECHO LV Diastolic Diameter PLAX 5.0 cm 4.2 - 5.9 / 3.9 - 5.3 cm LV Systolic Diameter PLAX 2.8 cm 2.1 - 4.0 cm LV Fractional Shortening PLAX 44.0 % 25 - 46 % LV Ejection Fraction 2D Teich 75.0 % IVS Diastolic Thickness 0.9 cm LVPW Diastolic Thickness 0.9 cm LV Relative Wall Thickness 0.4 RV Internal Dim ED PLAX 2.7 cm 1.9 - 3.8 cm LVOT Diameter 2.0 cm Aortic Root Diameter 3.0 cm LA Volume 92.0 cm 18 - 58 / 22 - 52 cm Ascending Aorta Diameter 4.0 cm DOPPLER AV Peak Velocity 251.0 cm/s AV Peak Gradient 25.2 mmHg AV Mean Velocity 172.0 cm/s AV Mean Gradient 14.0 mmHg AV Velocity Time Integral 52.7 cm LVOT Peak Velocity 117.0 cm/s LVOT Peak Gradient 5.5 mmHg LVOT Mean Velocity 85.7 cm/s LVOT Mean Gradient 3.0 mmHg LVOT Velocity Time Integral 26.5 cm LVOT Stroke Volume 83.3 cm AV Area Cont Eq vti 1.6 cm AV Area Cont Eq pk 1.5 cm MV Peak Velocity 195.5 cm/s MV Peak Gradient 15.3 mmHg MV Mean Velocity 116.5 cm/s MV Mean Gradient 7.0 mmHg Mitral E Point Velocity 168.0 cm/s MV PHT Velocity 204.5 cm/s MV Deceleration Johnson 697.5 cm/s MV Pressure Half Time 88.0 ms MV Area PHT 2.5 cm MV Deceleration Time 217.0 ms TR Peak Velocity 356.0 cm/s TR Peak Gradient 50.7 mmHg Right Atrial Pressure 5.0 mmHg Pulmonary Artery Systolic Pressu 55.7 mmHg Right Ventricular Systolic Press 55.7 mmHg PV Peak Velocity 116.0 cm/s PV Peak Gradient 5.4 mmHg PV Mean Velocity 71.5 cm/s PV Mean Gradient 3.0 mmHg PV Velocity Time Integral 25.2 cm LV E' Lateral Velocity 13.9 cm/s Mitral E to LV E' Lateral Ratio 12.1 LV E' Septal Velocity 15.0 cm/s Mitral E to LV E' Septal Ratio 11.2
[2017-07-21 08:00] VITALS: BP 118/70
--- NOTE | 2017-07-21 08:47 | PN- Gastroenterology ---
Assessment/Plan Assessment/Recommendations: 87 y/o male, full code, with numerous co-morbidities, remotely seen by myself in inpt GI consultation 10/02/15, with intermittent OB+ stool, not c/w outpt PillCam (*see below), post multiple EGD/colonoscopy/push enteroscopy, CKD & HD- dependent since spring 2016 (post LUE AVF 12/01/16), who presented to the [place] ER 07/19/17, BIBA with syncope (witnessed by his , Andrea), hypoxia, urinary & fecal incontinence (no witnessed seizure), history of falls, fatigue, nasal congestion, symptoms of URI with cough productive of brown sputum, found to be yellow with elevated LFTs. He denied any fevers, chills, rashes, myalgias , or acute arthralgias (aside from DJD). He had mild diarrhea 1 day [employer], treated with Imodium. When he was incontinent, the stools were "dark" without gross BRB or hematemesis. The stools were OB positive in the ER, without fresh blood. They were later dark brown, trace OB positive, on my digital exam . Upon arrival to the [place] ER 07/19/17 at 2:06 p.m., BP 92/50, P 76, R 20, T 97.5, O2 sat RA 90%, improving to 95% on 2L nc. His BP improved after IVF. He last had HD 07/17/17 & missed his HD slot 07/19/17, due to the above. He denied any nausea, vomiting, abdominal pain, early satiety, constipation, obstipation, tenesmus, or rectal bleeding. The mild diarrhea had resolved. He was on baby aspirin 81 mg daily. He denied any NSAIDs or Plavix. Regarding the dark stool, he was on iron, although apparently this was switched to IV Fe & EPO. He was not on any Pepto-Bismol. He was told he looked yellow at HD on . His GB was intact. He denied any dark urine, light stool, or pruritus. He currently denied any confusion, although he was slightly confused after the syncopal event, according to his . There was no documented head trauma or abdominal trauma. His GI ROS from above & below were otherwise negative. The patient was taking approximately 2 g of Tylenol daily. He had been off Percocet for some time. He denied any new medications or herbal medications, aside from low dose Vitamin E 400 IU daily, rxd by renal in 06/2017. He denied any additional OTC medications. He was subsequently found to have 07/19/17: *influenza type A His outpatient medication list included baby ASA, Amlodipine, Colace, Labetalol, vitamin D, isosorbide, Renvela, TORIBIO, Senokot, Colace, Atorvastatin, Vit E, Lidocaine patch, Tylenol, & Miralax. He denied any history of viral hepatitis. Apparently, he was recently started on Hep A & B vaccination series. He denied any EtOH, illicit street drugs, or IVDA. He had been transfused in the past. There was no gross hematuria, epistaxis, gum bleeding, or hemoptysis. He denied any chest pain or shortness of breath. Regarding the LFTs, there is no family history of any inherited liver disease or IBD. There is a positive family history of colon CA (pt's M- 58), & positive family history of colon adenoma (pt's dtr, Jessica). The patient's other numerous issues include prior rx narcotic-induced encephalopathy, which cleared after Narcan, chronic left chest wall pain post shingles, *chronic Fe def anemia, HTN, HLD, & ASHD post CABG 5 in 2000, ATKA, history of complex right-sided hepatic cysts, chronic low back pain with indwelling neurostimulator low back 05/2015, neuropathy, history of sciatica, diverticulosis coli, DJD, knee replacement, surgery, hypothyroid, carpal repair, , CHF, pulmonary HTN, ROBYN on O2-2L nc hs. 09/10/07: EGD- mild esophagitis, J-shaped stomach, H. pylori negative gastritis 10/24/07: Sigmoid resection by Dr. 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 There was no residual colon cancer found surgically, with negative lymph nodes. 09/25/07: PET- negative. 04/27/09: Colonoscopy to cecum- rectal telangiectasias of unknown etiology with clean anastomosis at 23 cm, left-sided diverticula plus removal of 2 benign tubular adenomas. 12/11/14: CEA 1.7, Fe sat 2.4%, ferritin 10.2. 12/19/14: *low IgA 78, tTG Ab- neg, DGP Ab- neg. 01/08/15: *Combined upper endoscopy to the third portion of the duodenum with biopsy, plus colonoscopy to the cecum with biopsies- normal esophageal mucosa with a minimally irregular Z-line at 40 cm, and a somewhat J-shaped stomach. Biopsy of 2 x 2 mm excrescences at the lesser curvature of the stomach- mild chronic fundic gastritis, H. pylori negative. Random biopsies of the second and third portions of the duodenum- no significant villous blunting (nothing on biopsies to suggest celiac sprue), mild chronic duodenitis, slightly nodular duodenal bulb showing Renzo gland hypertrophy and focal gastric metaplasia. Moderate left-sided diverticula, post sigmoid resection with a clean anastomosis at 23 cm, multiple sessile 5 mm polyps removed via cold biopsies, including one from the right colon showing benign tubular adenoma, two from the transverse colon showing benign sessile serrated polyp/adenoma, biopsy of the left colon unremarkable, biopsy of a small rectal polyp at 10 cm- benign hyperplastic polyp with focal sessile serrated polyp/adenoma. 05/30/15: normal LFTs, decreased ferritin 11.5, iron 24, TIBC 415, Fe sat 5.8%. 07/22/2015: normal SPEP/IPEP. 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 10/02/15: EGD to jejunum (160 cm from the incisors) with pedicolon- 1. Superficial antral erosions, without any active bleeding. 2. Superficial erosions in the duodenal bulb, without any active bleeding. 3. Clot washed clear from the post bulbar region, with normal-appearing underlying mucosa. 4. Slightly J-shaped stomach. 5. Otherwise, negative study to the jejunum. [The patient was endoscoped 3 times, with the single channel scope, the double channel scope, and the pediatric colonoscope from above, down to the jejunum, 160 cm from the incisors]. *The pt subsequently refused outpt PillCam multiple times (rule out angiodysplasias associated with CKD and/or ). The pt was most recently admitted to [place] 10/28/16 - 11/08/16, for acute on chronic respiratory failure, multifactorial volume overload, CKD, & normocytic anemia-> EPO. 09/06/16: *HIV- neg. 09/07/16: *Hep A Ab, Hep Bs Ag, Hep B core Ab, Hep C Ab- all neg. 07/19/17: Admission labs- WBC 4.7, H/H 8.9/25.6, MCV 90.6, RDW 17.6, PLT 239, PT 14.1, INR 1.35, PTT 38, glucose 111, BUN/Cr 81/7.4, GFR 7, Na 141, K 4.9, HCO3 19, AG 21, lactate 1.1, Ca 8.2, amylase/lipase 137/353, albumin 3.4, globulin 2.7, *TBil 9.3, DBil 8.6, alk phos 354, AST 98, ALT 110, nl NH3 30, [Tylenol] < 10; Fe 45 (? no TIBC), ferritin 497, BNP 25,300, *troponin- pending, *Hep A, B, & C serologies- pending. 07/19/17: *Rapid viral influenza A/B: + influenza Type A. 07/19/17: EKG- NSR @ 76, 1st degree AVB, NC .261, normal axis (V3 missing), NSST flattening. 07/19/17: XRY-PORTABLE CHEST XRAY- No definite evidence of pulmonary edema at this time. Elevated left hemidiaphragm, chronic. Mediastinum is difficult to assess with this technique. 07/19/17: CT CHEST, ABDOMEN AND PELVIS WITHOUT CONTRAST- 1. Asymmetric elevation of left diaphragm compared to right. Atelectasis at left lung base. No acute change of the chest. 2. Stable cystic lesion inferior right lobe of liver. No suspicious liver lesion. No ascites. 3. Cholelithiasis without acute change of gallbladder wall. No dilated ducts. 4. Atrophic right kidney. Bilateral renal cysts. No acute abnormality of kidneys. 5. Diverticulosis of colon without acute change of bowel. Status post prior surgical anastomosis at sigmoid colon intact. 6. Stable left adrenal lesion. 7. Small B/L IH. 8. DJD. Dextroscoliosis mid-L spine. 07/19/17: RUQ ABDOMINAL ULTRASOUND (LIMITED)- Liver of mildly heterogeneous echogenicity. No intrahepatic biliary ductal dilation. CBD 4 mm. Old 4.8 cm cyst within the right lobe with peripheral calcification. Cholelithiasis without evidence of cholecystitis. 07/19/17: CT HEAD WO IV CONTRAST- No evidence for acute intracranial injury. Age-appropriate appearance of the brain. Upon completion of the 07/19/17: GI consult, I felt that most likely, the patient's LFTs, which were more cholestatic > transaminitis, were most likely secondary to some systemic process, probably infectious in nature. The 07/19/17: *Rapid viral influenza A/B: + influenza Type A was noted, & perhaps this is the source. The patient was on no new medications to cause the above. He was on Atorvastatin, which usually causes more of a transaminitis than cholestasis. Amlodipine can cause hepatitis. The hypotension may have contributed to the LFTs , as well. I felt that his cholelithiasis was incidental in nature, without any cholecystitis, choledocholithiasis, or dilated ducts. His hepatic cyst was incidental as well. I felt that the yield of an MRCP would be low, and the patient has an implanted neurostimulator, probably prohibiting this. I did not feel that the risk:benefit ratio warranted the more invasive ERCP. Admission [ Tylenol] < 10. *With regards to the anemia, which is chronic in nature, on my exam he had brown , trace OB positive stool. He has had an extensive GI workup for the above, including relatively recent EGD/colonoscopy/push enteroscopy to the jejunum. The patient was repeatedly noncompliant with a suggested outpt PillCam. He certainly could have small bowel angiodysplasias, which could be associated with CKD and/or (Heyde's syndrome). Clinically, I did not feel that he was actively GI bleeding to the point that would warrant a repeat EGD. He was hypotensive, which resolved. I did not think this was from the mildly OB positive stool, but rather from dehydration and possible sepsis. 07/19/17: *Viral culture- pending. 07/19/17: *Hep A Ab, Hep Bs Ag, Hep B core Ab, Hep C Ab- all negative. 07/20/17: 12:20 a.m.- WBC 5.0 (87S/8L/5M), H/H 8.8/26.2, MCV 92.4, RDW 16.8, PLT 187, 07/20/17: 5:15 a.m.- WBC 4.7, H/H 8.8/26.7, MCV 92.8, RDW 16.9, PLT 191, PT 14.7 , INR 1.40, glucose 88, BUN/Cr 87/8.4, GFR 6, Na 140, K 5.5, HCO3 19, AG 22, Ca 8.3, PO4 7.2, Mg 1.7, alb 3.4, TBil 5.6, alk phos 314, AST 69, ALT 102, CK 127, B12 > 1000, troponin- neg x 2. *The patient was started on Tamiflu 07/20/17. The patient's Hgb remained relatively stable for him. His LFTs were improving. Numerous consultants' notes appreciated (i.e.- ICU, renal, cardiology, etc.). The patient's implantable neurostimulator was not compatible with MRCP. As his LFTs were coming down, I did not push for ERCP. He had no signs of cholangitis, nor any dilated ducts. Again, ? if LFTs were rx in nature to a systemic process, such as influenza A. He remained on EPO. Pantoprazole was continued. Atrovastatin was held. Ibuprofen was never given, & D/C'd. He remained on baby ASA. *As of 07/20/17, the patient remained hemodynamically stable & currently afebrile (T 97.2, Tm 99.3), with O2 sat 2L nc- 97%. He received HD 07/20/17, as he missed his routine HD 1 day prior. He denied any over GI bleeding (dark brown stool, trace OB+ on my 07/19/17: digital exam). He denied any subjecive fevers, chills, abdominal pain, nausea, vomiting, or diarrhea. He remained with a cough productive of brown sputum. He had no CP or SOB. His fatigue was improving & he was tolerating clears po. 07/20/17: S. 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 *As of 07/21/17, the patient remained hemodynamically stable in the ICU, with O2 sat 2L nc- 93%. T 98.7 with Tm 99.9, on Tamiflu. Serologic testing for atypical pneumonia- negative. There was no overt GI bleeding. The patient was getting HD. He had tolerated clears po. He was tentatively made NPO by the ICU team, as his bilirubin had bumped up. He remained completely asymptomatic from a GI perspective, without any abdominal pain, nausea, vomiting, chills, confusion, or pruritus. He remained yellow. Recent imaging studies, including CT/sono, without dilated ducts. Again, implantable neurostimulator prohibited MRCP. His outpt Atorvastatin had been discontinued. He had a dry cough, with some nasal congestion. He denied any chest pain or shortness of breath. *At the moment, I still felt that the patient's LFTs were probably reactive in nature, due to some systemic process, possibly the influenza A. His cholelithiasis most likely is incidental in nature. With the magnitude of his predominantly elevated direct bilirubin, I would expect dilated ducts on imaging studies, which he has not had. Unfortunately, MRCP could not be performed because of an implantable neurostimulator. At present, I feel that the risk: benefit ratio does not want an invasive ERCP. He had a completely benign abdominal exam. *SUGGEST: *Renal diet as tolerated. Implantable neurostimulator is incompatible with MRCP, & risk:benefit ratio currently does not warrant ERCP (no dilated ducts on CT/ sono; LFTs declining- ? if systemic in nature, from influenza A). Await 07/19/17 : viral cultures. *Continue to hold Atorvastatin for now. HD & EPO (+/- IV Fe), per renal. *Serial LFTs, INR, & CBC. *Tamiflu 30 mg after HD x 5d (dosing per renal). *Consider checking EBV/CMV/mono spot (but would expect more of a transaminitis with this). *Consider additional serologies (i.e.- DORA, AMA, etc. ), but probably low yield. 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 If LFTs persist, may ultimately need liver biopsy, but I anticipate these will gradually resolve. Follow-up CBC, but no plans for inpatient EGD, unless the patient actively bleeds. T&C 2u PRBC. Keep Hgb > 8 (hx ASHD). Empiric PPI. If anemia worsens, consider holding ASA 81 mg daily, if okay with cardiology. Outpt PillCam, as patient allows. *Avoid NSAIDS. DVT prophylaxis with mechanical ALPS. Keep Tylenol to < 2g daily. Avoid hepatotoxins. By dates, one could consider a repeat colonoscopy in 12/2017, 3 years after his last study, in view of his hx colonic TA/SSP, personal hx colon Ca, & +FHx colon Ca. However, he will be 88 y/o then, & I don't feel this would be warranted by the risk:benefit ratio. Further GI recommendations to follow, depending on clinical course. The above was again discussed with the medical house staff, the patient, & previously with the patient's , Andrea, at the bedside in the ICU. Dr. Suni De Leon is covering GI this weekend & is available for potential ERCP, if this becomes clinically warranted. *Consider repeating RUQ sono over weekend, last done 07/19/17. Problem List: 1. Elevated LFTs 2. Influenza A 3. Syncope 4. Jaundice 5. Cholelithiasis 6. Hepatic cyst 7. Iron (Fe) deficiency anemia 8. Diverticulosis of colon 9. History of colon cancer 10. Positive occult stool blood test 11. Family history of colon cancer in mother Subjective Subjective: 07/20/17: S. 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 *As of 07/21/17, the patient remained hemodynamically stable in the ICU, with O2 sat 2L nc- 93%. T 98.7 with Tm 99.9, on Tamiflu. Serologic testing for atypical pneumonia- negative. There was no overt GI bleeding. The patient was getting HD. He had tolerated clears po. He was tentatively made NPO by the ICU team, as his bilirubin had bumped up. He remained completely asymptomatic from a GI perspective, without any abdominal pain, nausea, vomiting, chills, confusion, or pruritus. He remained yellow. Recent imaging studies, including CT/sono, without dilated ducts. Again, implantable neurostimulator prohibited MRCP. His outpt Atorvastatin had been discontinued. He had a dry cough, with some nasal congestion. He denied any chest pain or shortness of breath. Review of Systems: Full 14 point ROS otherwise N/C, & as per HPI. Review of Systems Constitutional: Reports: malaise & weakness-> improving Denies: chills, diaphoresis, fever, unexplained weight loss. EENTM: Reports:chronic hearing changes. Denies: no symptoms (nasal congestion), blurred vision, double vision, visual changes, eye pain, eye drainage, eye tearing, icterus, ear discharge, ear pain, ear redness, nasal congestion, epistaxis, nasal pain, throat pain, throat swelling, mouth pain, tooth pain. Cardiovascular: Reports: peripheral edema (trace), syncope-> resolved. Denies: chest pain, edema, orthopena, palpitations. Respiratory: Reports: cough (brown sputum-> now dry), sputum production. Denies: hemoptysis, orthopnea, short of breath, stridor, wheezing. GI: Reports: melena (? dark stool- resolved). Denies: abdominal pain, bloating, constipation, diarrhea, distention, bowel incontinence, nausea, bloody stool, changes in stool, vomiting, steatorrhea. Genitourinary: Denies: discharge, dysuria, frequency, hematuria, hesitation, nocturia, pain, urgency. Musculoskeletal: Reports: back pain (chronic), joint pain (DJD). Denies: gout, joint swelling, muscle pain, muscle stiffness, neck pain. Skin: Reports: jaundice-> improving. Denies: cysts, change in skin color, change in hair/nails, dryness, erythema, lesions, lymphangitis, lumps, moles, rash. Neurological/Psychological: Reports: neuropathy & hx falls Denies: anxiety, ataxia, cognitive dysfunction, confusion, depressed, dementia, emotional problems, headache, numbness, paresthesia, pre-existing deficit, petit mal seizures, tingling, tremors, tonic-clonic seizures, unable to move lower ext , unable to move upper ext, weakness. Hematologic/Endocrine: Denies: bruising, bleeding, polyuria, polydipsia. Immunologic/Allergic: Denies: splenectomy, HIV/AIDS, lymphadenopathy. All Other Systems: Reviewed and Negative Objective Vital Signs and I&Os Vital Signs Date Time Temp Pulse Resp B/P B/P Pulse O2 O2 Flow FiO2 Mean Ox Delivery Rate 07/21 0800 93 Nasal 2.0L Cannula 07/21 0800 98.7 98 22 118/70 93 Nasal 2.0L Cannula 07/21 0000 94 Nasal 2.0L Cannula 07/20 2300 99.9 92 24 120/60 93 Nasal 2.0L Cannula 07/20 2000 93 Nasal 2.0L Cannula 07/20 1600 97 Nasal 2.0L Cannula 07/20 1600 97.2 89 14 148/70 95 Nasal 2.0L Cannula Intake & Output 07/21 1600 07/21 0400 07/20 1600 07/20 0400 07/19 1600 07/19 0400 Intake Total 300 100 750 620 Output Total 200 0 Balance 300 -100 750 620 Intake, IV 500 Intake, Oral 300 100 750 120 Output, Urine 200 0 Patient 240 lb 238 lb Weight Weight Bed scale Reported by Patient Measurement Method Physical Exam: Well-developed, well-nourished, chronically ill appearing, obese male in no distress. Sclera: less icteric. Conjunctiva slightly pale. Oropharynx clear. Poor dentition. There is no adenopathy, thyromegaly, or JVD. No peripheral stigmata of inflammatory bowel disease or chronic liver disease on exam. No spiders on the anterior chest wall. No gynecomastia. No CVA tenderness. No spine tenderness. Dextroscoliosis of mid-L spine. Tender left lateral chest wall (post -herpetic neuralgia), without gross zoster. Lungs: clear to A&P, with slight decreased BS at the left base. Heart exam: regular rate rhythm S1 and S2, with I/ systolic murmur. s/p CABG. Abdominal exam: normal bowel sounds, obese, soft belly, nontender, without guarding or rebound. Small B/L IH, otherwise, no mass. No organomegaly. Negative Mccauley sign. No fluid shift. No pulsatile mass. No epigastric bruit. Digital rectal exam done by myself 07/19/17: Dark brown stool (on iron), trace OB-positive, without mass. Smooth enlarged prostate. No nodules. No external hemorrhoids. No fissure. No bright red blood. Extremities: without cyanosis or clubbing. Trace pedal edema B/L. LUE AVF , with + thrill, + bruit. Positive DJD. No palpable cords. No palmar erythema. No Dupuytren's conttractures. Distal pulses 1+ bilaterally. DTRs 1+ bilaterally. Alert and oriented x 3. Less lethargic. ATKA. Right handed. Motor 4 /5 B/L. CN II-XII intact. No tremor. No asterixis. Current Medications: Current Medications Sig/Tiffanie Start time Last Medication Dose Route Stop Time Status Admin Aspirin 81 MG DAILY 07/20 1000 AC 07/20 PO 0822 Cholecalciferol 1,000 IU DAILY 07/20 1000 AC 07/20 PO 0822 Epoetin Earnest 2,000 UNIT TUES THURS SAT 07/20 1424 AC 07/20 IV 1716 Gabapentin 300 MG QPM 07/20 2200 AC 07/20 PO 2128 Levothyroxine Sodium 0.05 MG DAILY 07/20 1000 AC 07/20 PO 0822 Lidocaine 1 ANI DAILY NEEDED PRN 07/20 1015 AC TOP Lidocaine/Prilocaine 1 ANI DAILY PRN 07/20 1315 AC 07/21 TOP 0603 Oseltamivir Phosphate 30 MG 2200 07/20 0001 AC 07/20 PO 07/24 0000 2128 Pantoprazole Sodium 40 MG DAILY 07/20 1000 AC 07/20 IV 0821 Paricalcitol 2 MCG ONCE ONE 07/20 1445 DC 07/20 IV 07/20 1446 1716 Sevelamer Carbonate 800 MG WM 07/20 0800 AC 07/20 PO 1719 Vitamin E 400 IU DAILY 07/20 1000 AC 07/20 PO 0822 Results Pertinent Lab Results: Laboratory Tests 07/21 07/20 0545 UNK Chemistry Sodium (137 - 145 mmol/L) 138 Potassium (3.5 - 5.1 mmol/L) 4.2 Chloride (98 - 107 mmol/L) 97 L Carbon Dioxide (22 - 30 mmol/L) 23 Anion Gap (5 - 16) 17 H BUN (9 - 20 mg/dL) 48 H Creatinine (0.7 - 1.2 mg/dL) 5.6 *H Estimated GFR (>60 ml/min) 10 L BUN/Creatinine Ratio (7 - 25 %) 8.6 Total Bilirubin (0.2 - 1.3 mg/dL) 8.8 H Direct Bilirubin (< 0.4 mg/dL) 8.0 H AST (17 - 59 U/L) 90 H ALT (21 - 72 U/L) 102 H Alkaline Phosphatase (< 127 U/L) 364 H Total Protein (6.3 - 8.2 g/dL) 6.0 L Albumin (3.5 - 5.0 g/dL) 3.3 L Vitamin B12 Cancelled Hematology CBC w Diff NO MAN DIFF REQ WBC (4.8 - 10.8 /CUMM) 5.7 RBC (4.70 - 6.10 /CUMM) 2.73 L Hgb (14.0 - 18.0 G/DL) 8.4 L Hct (42 - 52 %) 25.6 L MCV (80.0 - 94.0 FL) 93.7 MCH (27.0 - 31.0 PG) 30.9 RDW (11.5 - 14.5 %) 16.5 H Plt Count (130 - 400 /CUMM) 182 MPV (7.4 - 10.4 FL) 8.3 Gran % (42.2 - 75.2 %) 80.5 H Lymphocytes % (20.5 - 51.1 %) 7.4 L Monocytes % (1.7 - 9.3 %) 10.8 H Eosinophils % (0 - 5 %) 1.2 Basophils % (0.0 - 2.0 %) 0.1 Absolute Granulocytes (1.4 - 6.5 /CUMM) 4.5 Absolute Lymphocytes (1.2 - 3.4 /CUMM) 0.4 L Absolute Monocytes (0.10 - 0.60 /CUMM) 0.6 Absolute Eosinophils (0.0 - 0.7 /CUMM) 0.1 Absolute Basophils (0.0 - 0.2 /CUMM) 0 PUBS MCHC (33.0 - 37.0 G/DL) 33.0 07/20 07/20 0515 0500 Chemistry Sodium (137 - 145 mmol/L) 140 Potassium (3.5 - 5.1 mmol/L) 5.5 H Chloride (98 - 107 mmol/L) 100 Carbon Dioxide (22 - 30 mmol/L) 19 L Anion Gap (5 - 16) 22 H BUN (9 - 20 mg/dL) 87 H Creatinine (0.7 - 1.2 mg/dL) 8.4 *H Estimated GFR (>60 ml/min) 6 L Glucose (65 - 99 mg/dL) 88 Calcium (8.4 - 10.2 mg/dL) 8.3 L Phosphorus (2.5 - 4.5 mg/dL) 7.2 H Magnesium (1.6 - 2.3 mg/dL) 1.7 Total Bilirubin (0.2 - 1.3 mg/dL) 5.6 H AST (17 - 59 U/L) 69 H ALT (21 - 72 U/L) 102 H Alkaline Phosphatase (< 127 U/L) 314 H Creatine Kinase (55 - 170 U/L) 127 Troponin I (<0.11 ng/ml) 0.04 Albumin (3.5 - 5.0 g/dL) 3.4 L Vitamin B12 (239 - 931 pg/mL) > 1000 H Cancelled Coagulation PT (9.4 - 12.5 SEC) 14.7 H INR (0.90 - 1.17) 1.40 H Hematology CBC w Diff NO MAN DIFF REQ WBC (4.8 - 10.8 /CUMM) 4.7 L RBC (4.70 - 6.10 /CUMM) 2.87 L Hgb (14.0 - 18.0 G/DL) 8.8 L Hct (42 - 52 %) 26.7 L MCV (80.0 - 94.0 FL) 92.8 MCH (27.0 - 31.0 PG) 30.6 RDW (11.5 - 14.5 %) 16.9 H Plt Count (130 - 400 /CUMM) 191 MPV (7.4 - 10.4 FL) 8.2 Gran % (42.2 - 75.2 %) 78.9 H Lymphocytes % (20.5 - 51.1 %) 10.2 L Monocytes % (1.7 - 9.3 %) 10.3 H Eosinophils % (0 - 5 %) 0.4 Basophils % (0.0 - 2.0 %) 0.2 Absolute Granulocytes (1.4 - 6.5 /CUMM) 3.7 Absolute Lymphocytes (1.2 - 3.4 /CUMM) 0.5 L Absolute Monocytes (0.10 - 0.60 /CUMM) 0.5 Absolute Eosinophils (0.0 - 0.7 /CUMM) 0 Absolute Basophils (0.0 - 0.2 /CUMM) 0 PUBS MCHC (33.0 - 37.0 G/DL) 33.0 07/20 07/19 07/19 0020 2133 1900 Chemistry Ammonia (9 - 30 umol/L) 30 Troponin I (<0.11 ng/ml) 0.03 Hematology CBC w Diff MAN DIFF ORDERED WBC (4.8 - 10.8 /CUMM) 5.0 RBC (4.70 - 6.10 /CUMM) 2.84 L Hgb (14.0 - 18.0 G/DL) 8.8 L Hct (42 - 52 %) 26.2 L MCV (80.0 - 94.0 FL) 92.4 MCH (27.0 - 31.0 PG) 30.8 RDW (11.5 - 14.5 %) 16.8 H Plt Count (130 - 400 /CUMM) 187 MPV (7.4 - 10.4 FL) 8.4 Gran % (42.2 - 75.2 %) 82.3 H Lymphocytes % (20.5 - 51.1 %) 10.7 L Monocytes % (1.7 - 9.3 %) 7.0 Eosinophils % (0 - 5 %) 0 Basophils % (0.0 - 2.0 %) 0 Absolute Granulocytes (1.4 - 6.5 /CUMM) 4.1 Segmented Neutrophils (42.2 - 75.2 %) 87 H Absolute Lymphocytes (1.2 - 3.4 /CUMM) 0.5 L Lymphocytes (20.5 - 51.1 %) 8 L Monocytes (1.7 - 9.3 %) 5 Absolute Monocytes (0.10 - 0.60 /CUMM) 0.3 Absolute Eosinophils (0.0 - 0.7 /CUMM) 0 Absolute Basophils (0.0 - 0.2 /CUMM) 0 Platelet Estimate (ADEQUATE) ADEQUATE Polychromasia 1+ Hypochromic-Microcytic 1+ Anisocytosis 1+ Target Cells 1+ Stomatocytes FEW Elliptocytes FEW PUBS MCHC (33.0 - 37.0 G/DL) 33.4 Serology Virus Culture Pending 07/19 07/19 07/19 1732 1546 1546 Chemistry Sodium (137 - 145 mmol/L) 141 Potassium (3.5 - 5.1 mmol/L) 4.9 Chloride (98 - 107 mmol/L) 100 Carbon Dioxide (22 - 30 mmol/L) 19 L Anion Gap (5 - 16) 21 H BUN (9 - 20 mg/dL) 81 H Creatinine (0.7 - 1.2 mg/dL) 7.4 *H Estimated GFR (>60 ml/min) 7 L BUN/Creatinine Ratio (7 - 25 %) 10.9 Glucose (65 - 99 mg/dL) 111 H Lactic Acid (0.7 - 2.1 mmol/L) Cancelled 1.1 Calcium (8.4 - 10.2 mg/dL) 8.2 L Iron (49 - 181 ug/dL) 45 L Ferritin (17.9 - 464 ng/mL) 497.0 H Total Bilirubin (0.2 - 1.3 mg/dL) 9.3 H Direct Bilirubin (< 0.4 mg/dL) 8.6 H AST (17 - 59 U/L) 98 H ALT (21 - 72 U/L) 110 H Alkaline Phosphatase (< 127 U/L) 354 H [id number] Pept (<125 pg/mL) 33826 H Total Protein (6.3 - 8.2 g/dL) 6.1 L Albumin (3.5 - 5.0 g/dL) 3.4 L Globulin (1.9 - 4.2 gm/dL) 2.7 Albumin/Globulin Ratio (1.1 - 2.2 %) 1.3 Amylase (30 - 110 U/L) 137 H Lipase (23 - 300 U/L) 353 H Coagulation PT (9.4 - 12.5 SEC) 14.1 H INR (0.90 - 1.17) 1.35 H APTT (25 - 37 SEC) 38 H Serology Hepatitis A IgM Ab (NONREACTIVE) NONREACTIVE Hep Bs Antigen (NONREACTIVE) NONREACTIVE Hep B Core IgM Ab Conf (NONREACTIVE) NONREACTIVE Hepatitis C Antibody (NONREACTIVE) NONREACTIVE Toxicology Acetaminophen (10.0 - 30.0 ug/mL) < 10.0 L 07/19 1440 Hematology CBC w Diff NO MAN DIFF REQ WBC (4.8 - 10.8 /CUMM) 4.7 L RBC (4.70 - 6.10 /CUMM) 2.83 L Hgb (14.0 - 18.0 G/DL) 8.9 L Hct (42 - 52 %) 25.6 L MCV (80.0 - 94.0 FL) 90.6 MCH (27.0 - 31.0 PG) 31.3 H RDW (11.5 - 14.5 %) 17.6 H Plt Count (130 - 400 /CUMM) 239 MPV (7.4 - 10.4 FL) 9.1 Gran % (42.2 - 75.2 %) 81.3 H Lymphocytes % (20.5 - 51.1 %) 10.6 L Monocytes % (1.7 - 9.3 %) 7.0 Eosinophils % (0 - 5 %) 1.1 Basophils % (0.0 - 2.0 %) 0 Absolute Granulocytes (1.4 - 6.5 /CUMM) 3.8 Absolute Lymphocytes (1.2 - 3.4 /CUMM) 0.5 L Absolute Monocytes (0.10 - 0.60 /CUMM) 0.3 Absolute Eosinophils (0.0 - 0.7 /CUMM) 0.1 Absolute Basophils (0.0 - 0.2 /CUMM) 0 PUBS MCHC (33.0 - 37.0 G/DL) 34.6 Imaging/Other Studies: 07/19/17: EKG- NSR @ 76, 1st degree AVB, NC .261, normal axis (V3 missing), NSST flattening. 07/19/17: XRY-PORTABLE CHEST XRAY- No definite evidence of pulmonary edema at this time. Elevated left hemidiaphragm, chronic. Mediastinum is difficult to assess with this technique. 07/19/17: CT CHEST, ABDOMEN AND PELVIS WITHOUT CONTRAST- 1. Asymmetric elevation of left diaphragm compared to right. Atelectasis at left lung base. No acute change of the chest. 2. Stable cystic lesion inferior right lobe of liver. No suspicious liver lesion. No ascites. 3. Cholelithiasis without acute change of gallbladder wall. No dilated ducts. 4. Atrophic right kidney. Bilateral renal cysts. No acute abnormality of kidneys. 5. Diverticulosis of colon without acute change of bowel. Status post prior surgical anastomosis at sigmoid colon intact. 6. Stable left adrenal lesion. 7. Small B/L IH. 8. DJD. Dextroscoliosis mid-L spine. 07/19/17: RUQ ABDOMINAL ULTRASOUND (LIMITED)- Liver of mildly heterogeneous echogenicity. No intrahepatic biliary ductal dilation. CBD 4 mm. Old 4.8 cm cyst within the right lobe with peripheral calcification. Cholelithiasis without evidence of cholecystitis. 07/19/17: CT HEAD WO IV CONTRAST- No evidence for acute intracranial injury. Age-appropriate appearance of the brain.
--- NOTE | 2017-07-21 09:31 | PN- Cardiology ---
Subjective Subjective: The patient is awake, alert The events of the last 24 hours as well as telemetry were reviewed. Review of Systems: The review of systems is negative for chest pains, palpitations nor lightheadedness. The remainder of the 14 point review of systems is noncontributory with the exception of above. Objective Vital Signs and I&Os Vital Signs Date Time Temp Pulse Resp B/P B/P Pulse O2 O2 Flow FiO2 Mean Ox Delivery Rate 07/21 08 93 Nasal 2.0L Cannula 07/21 08 98.7 98 22 118/70 93 Nasal 2.0L Cannula 07/21 0000 94 Nasal 2.0L Cannula 07/20 2300 99.9 92 24 120/60 93 Nasal 2.0L Cannula 07/20 2000 93 Nasal 2.0L Cannula 07/20 1600 97 Nasal 2.0L Cannula 07/20 1600 97.2 89 14 148/70 95 Nasal 2.0L Cannula Intake & Output 07/21 1600 07/21 0800 07/21 0000 07/20 1600 07/20 0800 07/20 0000 Intake Total 300 100 600 150 620 Output Total 200 0 Balance 300 -100 600 150 620 Intake, IV 500 Intake, Oral 300 100 600 150 120 Output, Urine 200 0 Patient 240 lb Weight Weight Bed scale Measurement Method Physical Exam: General: Nontoxic, no apparent distress. HEENT: Sclera and conjunctiva within normal limits, without xanthelasmas. Neck: Carotids 2+ without bruits. Respiratory: Scattered rhonchi, air movement is good, without accessory respiratory muscle use. Heart: Regular rate and rhythm, 2/6 systolic ejection murmur at left sternal border, without JVD. Abdomen: Soft, nontender, no masses, normoactive bowel sounds. Extremities: Without clubbing, cyanosis, without edema. Neuro: Nonfocal exam, strength, 5 out of 5 Skin: Within normal limits without lesions. Psych: Mood and affect: Normal Current Medications: Current Medications Sig/Tiffanie Start time Last Medication Dose Route Stop Time Status Admin Aspirin 81 MG DAILY 07/20 1000 AC 07/20 PO 08 Cholecalciferol 1,000 IU DAILY 07/20 1000 AC 07/20 PO 08 Epoetin Earnest 2,000 UNIT TUES THURS SAT 07/20 1424 AC 07/20 IV 1716 Gabapentin 300 MG QPM 07/20 2200 AC 07/20 PO 2128 Levothyroxine Sodium 0.05 MG DAILY 07/20 1000 AC 07/20 PO 0822 Lidocaine 1 ANI DAILY NEEDED PRN 07/20 1015 AC TOP Lidocaine/Prilocaine 1 ANI DAILY PRN 07/20 1315 AC 07/21 TOP 0603 Oseltamivir Phosphate 30 MG 2200 07/20 0001 AC 07/20 PO 07/24 0000 2128 Pantoprazole Sodium 40 MG DAILY 07/20 1000 AC 07/20 IV 0821 Paricalcitol 2 MCG ONCE ONE 07/20 1445 DC 07/20 IV 07/20 1446 1716 Sevelamer Carbonate 800 MG WM 07/20 0800 AC 07/20 PO 1719 Vitamin E 400 IU DAILY 07/20 1000 AC 07/20 PO 0822 Results Last 48 Hrs of Labs/Mics: Laboratory Tests 07/21/17 0545: Anion Gap 17 H, Estimated GFR 10 L, BUN/Creatinine Ratio 8.6, Total Bilirubin 8.8 H, Direct Bilirubin 8.0 H, AST 90 H, ALT 102 H, Alkaline Phosphatase 364 H, Total Protein 6.0 L, Albumin 3.3 L, CBC w Diff NO MAN DIFF REQ, RBC 2.73 L, MCV 93.7, MCH 30.9, RDW 16.5 H, MPV 8.3, Gran % 80.5 H, Lymphocytes % 7.4 L, Monocytes % 10.8 H, Eosinophils % 1.2, Basophils % 0.1, Absolute Granulocytes 4.5, Absolute Lymphocytes 0.4 L, Absolute Monocytes 0.6, Absolute Eosinophils 0.1, Absolute Basophils 0, PUBS MCHC 33.0 07/20/17 1000: Vitamin B12 Cancelled 07/20/17 0515: Anion Gap 22 H, Estimated GFR 6 L, Glucose 88, Calcium 8.3 L, Phosphorus 7.2 H, Magnesium 1.7, Total Bilirubin 5.6 H, AST 69 H, ALT 102 H, Alkaline Phosphatase 314 H, Creatine Kinase 127, Troponin I 0.04, Albumin 3.4 L, Vitamin B12 > 1000 H, PT 14.7 H, INR 1.40 H, CBC w Diff NO MAN DIFF REQ, RBC 2.87 L, MCV 92.8, MCH 30.6, RDW 16.9 H, MPV 8.2, Gran % 78.9 H, Lymphocytes % 10.2 L, Monocytes % 10.3 H, Eosinophils % 0.4, Basophils % 0.2, Absolute Granulocytes 3.7, Absolute Lymphocytes 0.5 L, Absolute Monocytes 0.5, Absolute Eosinophils 0, Absolute Basophils 0, PUBS MCHC 33.0 07/20/17 0500: Vitamin B12 Cancelled 07/20/17 0020: Troponin I 0.03, CBC w Diff MAN DIFF ORDERED, RBC 2.84 L, MCV 92.4, MCH 30.8, RDW 16.8 H, MPV 8.4, Gran % 82.3 H, Lymphocytes % 10.7 L, Monocytes % 7.0, Eosinophils % 0, Basophils % 0, Absolute Granulocytes 4.1, Segmented Neutrophils 87 H, Absolute Lymphocytes 0.5 L, Lymphocytes 8 L, Monocytes 5, Absolute Monocytes 0.3, Absolute Eosinophils 0, Absolute Basophils 0, Platelet Estimate ADEQUATE, Polychromasia 1+, Hypochromic-Microcytic 1+, Anisocytosis 1+, Target Cells 1+, Stomatocytes FEW, Elliptocytes FEW, PUBS MCHC 33.4 07/19/17 2133: Virus Culture Pending 07/19/17 1900: Ammonia 30 07/19/17 1732: Lactic Acid Cancelled 07/19/17 1546: Lactic Acid 1.1 07/19/17 1546: Anion Gap 21 H, Estimated GFR 7 L, BUN/Creatinine Ratio 10.9, Glucose 111 H, Calcium 8.2 L, Iron 45 L, Ferritin 497.0 H, Total Bilirubin 9.3 H, Direct Bilirubin 8.6 H, AST 98 H, ALT 110 H, Alkaline Phosphatase 354 H, Pro-B- Natriuretic Pept 11396 H, Total Protein 6.1 L, Albumin 3.4 L, Globulin 2.7, Albumin/Globulin Ratio 1.3, Amylase 137 H, Lipase 353 H, PT 14.1 H, INR 1.35 H, APTT 38 H, Hepatitis A IgM Ab NONREACTIVE, Hep Bs Antigen NONREACTIVE, Hep B Core IgM Ab Conf NONREACTIVE, Hepatitis C Antibody NONREACTIVE, Acetaminophen < 10.0 L 07/19/17 1440: CBC w Diff NO MAN DIFF REQ, RBC 2.83 L, MCV 90.6, MCH 31.3 H, RDW 17.6 H, MPV 9.1, Gran % 81.3 H, Lymphocytes % 10.6 L, Monocytes % 7.0, Eosinophils % 1.1, Basophils % 0, Absolute Granulocytes 3.8, Absolute Lymphocytes 0.5 L, Absolute Monocytes 0.3, Absolute Eosinophils 0.1, Absolute Basophils 0, PUBS MCHC 34.6 Microbiology 07/20 2099 URINE ROUT: Legionella Antigen - COMP 07/20 2099 URINE ROUT: Streptococcus pneumoniae Antigen (M - COMP 07/19 2199 UPPER RESP: Surveillance Culture - COMP 07/19 2199 NASOPHARYN: Influenza Virus A & B Rapid Smear - COMP INFLUENZA TYPE A 07/19 2199 GI: Surveillance Culture - COMP Assessment/Plan Assessment/Plan #1. Syncope: suspect severe dehydration and volume depletion related to diarrhea, flu, and mild-moderate aortic stenosis. #2. Elevated bilirubin and liver function #3. End-stage renal disease on dialysis #4. Coronary artery disease previous coronary artery bypass graft surgery #5. Mild-Moderate aortic stenosis #6. Cerebrovascular disease and carotid stenosis #7. Hypertension #8. Influenza Syncope: Most likely secondary to volume depletion in the setting of diarrhea as well as influenza. The patient's degree of aortic stenosis is only mild to moderate with a mean gradient of 14 and is likely not a significant contributing factor. Continue supportive care as per the ICU team. Aortic stenosis: Mild to moderate intensity. We will continue to monitor as an outpatient. Continue telemetry? Yes
--- NOTE | 2017-07-21 11:17 | PN- Nephrology ---
Assessment/Plan Assessment: ESRD - Routine HD today with minimal fluid removal to EDW. Anemia - Hg below goal. Cont BENJAMÍN. Will hold off on heparin with HD out of initial concern for GI bleed but if Hg remains stable will plan to use in future treatments. Influenza A - Got flu shot this year which unfortunately was not effective. On tamiflu. MBD -Above goal. CK not elevated. Hyperbilirubinemia - Mostly direct although imaging without biliary ductal dilitation. GI following. Suggestion: -HD today - minimal fluid removal to EDW -Next HD on Monday -Needs Lidocaine cream 1hr before HD -TIW Epogen 2000U - may need to uptitrate -Low phos diet; sevelamer 800mg TIDWM -Tamiflu - recommmended dose is 30mg after HD for 5 days (will be getting HD today and then Monday) -f/u GI recs re: further work-up for hyperbilirubinemia Please call [phone] with ?'s Subjective Subjective: Pt seen and examined on dialysis Breathing is OK Bilirubin back up TTE with mild-moderate MS and with moderate pulm HTN Objective Vital Signs and I&Os Vital Signs Date Time Temp Pulse Resp B/P B/P Pulse O2 O2 Flow FiO2 Mean Ox Delivery Rate 07/21 0800 93 Nasal 2.0L Cannula 07/21 0800 98.7 98 22 118/70 93 Nasal 2.0L Cannula 07/21 0000 94 Nasal 2.0L Cannula 07/20 2300 99.9 92 24 120/60 93 Nasal 2.0L Cannula 07/20 1999 93 Nasal 2.0L Cannula 07/20 1600 97 Nasal 2.0L Cannula 07/20 1600 97.2 89 14 148/70 95 Nasal 2.0L Cannula Intake & Output 07/21 1600 07/21 0400 07/20 1600 07/20 0400 07/19 1600 07/19 0400 Intake Total 300 100 750 620 Output Total 200 0 Balance 300 -100 750 620 Intake, IV 500 Intake, Oral 300 100 750 120 Output, Urine 200 0 Patient 240 lb 238 lb Weight Weight Bed scale Reported by Patient Measurement Method Physical Exam: Gen - OK appearing HEENT - supple CV - RRR, no m/r/g Chest - coarse breath sounds anteriorly Abd - soft, NTND Ext - no significant edema Neuro - alert, oriented, grossly nonfocal Access - ZOE AVF +thrill/+bruit Current Medications: Current Medications Sig/Tiffanie Start time Last Medication Dose Route Stop Time Status Admin Aspirin 81 MG DAILY 07/20 1000 AC 07/20 PO 0822 Cholecalciferol 1,000 IU DAILY 07/20 1000 AC 07/20 PO 0822 Epoetin Earnest 2,000 UNIT TUES THURS SAT 07/20 1424 AC 07/20 IV 1716 Gabapentin 300 MG QPM 07/20 2200 AC 07/20 PO 2128 Levothyroxine Sodium 0.05 MG DAILY 07/20 1000 AC 07/20 PO 0822 Lidocaine 1 ANI DAILY NEEDED PRN 07/20 1015 AC TOP Lidocaine/Prilocaine 1 ANI DAILY PRN 07/20 1315 AC 07/21 TOP 0603 Oseltamivir Phosphate 30 MG 2200 07/20 0001 AC 07/20 PO 07/24 0000 2128 Pantoprazole Sodium 40 MG DAILY 07/20 1000 AC 07/20 IV 0821 Paricalcitol 2 MCG ONCE ONE 07/20 1445 DC 07/20 IV 07/20 1446 1716 Sevelamer Carbonate 800 MG WM 07/20 0800 AC 07/20 PO 1719 Vitamin E 400 IU DAILY 07/20 1000 AC 07/20 PO 0822 Results Pertinent Lab Results: Laboratory Tests 07/21 07/20 0545 UNK Chemistry Sodium (137 - 145 mmol/L) 138 Potassium (3.5 - 5.1 mmol/L) 4.2 Chloride (98 - 107 mmol/L) 97 L Carbon Dioxide (22 - 30 mmol/L) 23 Anion Gap (5 - 16) 17 H BUN (9 - 20 mg/dL) 48 H Creatinine (0.7 - 1.2 mg/dL) 5.6 *H Estimated GFR (>60 ml/min) 10 L BUN/Creatinine Ratio (7 - 25 %) 8.6 Total Bilirubin (0.2 - 1.3 mg/dL) 8.8 H Direct Bilirubin (< 0.4 mg/dL) 8.0 H AST (17 - 59 U/L) 90 H ALT (21 - 72 U/L) 102 H Alkaline Phosphatase (< 127 U/L) 364 H Total Protein (6.3 - 8.2 g/dL) 6.0 L Albumin (3.5 - 5.0 g/dL) 3.3 L Vitamin B12 Cancelled Hematology CBC w Diff NO MAN DIFF REQ WBC (4.8 - 10.8 /CUMM) 5.7 RBC (4.70 - 6.10 /CUMM) 2.73 L Hgb (14.0 - 18.0 G/DL) 8.4 L Hct (42 - 52 %) 25.6 L MCV (80.0 - 94.0 FL) 93.7 MCH (27.0 - 31.0 PG) 30.9 RDW (11.5 - 14.5 %) 16.5 H Plt Count (130 - 400 /CUMM) 182 MPV (7.4 - 10.4 FL) 8.3 Gran % (42.2 - 75.2 %) 80.5 H Lymphocytes % (20.5 - 51.1 %) 7.4 L Monocytes % (1.7 - 9.3 %) 10.8 H Eosinophils % (0 - 5 %) 1.2 Basophils % (0.0 - 2.0 %) 0.1 Absolute Granulocytes (1.4 - 6.5 /CUMM) 4.5 Absolute Lymphocytes (1.2 - 3.4 /CUMM) 0.4 L Absolute Monocytes (0.10 - 0.60 /CUMM) 0.6 Absolute Eosinophils (0.0 - 0.7 /CUMM) 0.1 Absolute Basophils (0.0 - 0.2 /CUMM) 0 PUBS MCHC (33.0 - 37.0 G/DL) 33.0 07/20 07/20 0515 0500 Chemistry Sodium (137 - 145 mmol/L) 140 Potassium (3.5 - 5.1 mmol/L) 5.5 H Chloride (98 - 107 mmol/L) 100 Carbon Dioxide (22 - 30 mmol/L) 19 L Anion Gap (5 - 16) 22 H BUN (9 - 20 mg/dL) 87 H Creatinine (0.7 - 1.2 mg/dL) 8.4 *H Estimated GFR (>60 ml/min) 6 L Glucose (65 - 99 mg/dL) 88 Calcium (8.4 - 10.2 mg/dL) 8.3 L Phosphorus (2.5 - 4.5 mg/dL) 7.2 H Magnesium (1.6 - 2.3 mg/dL) 1.7 Total Bilirubin (0.2 - 1.3 mg/dL) 5.6 H AST (17 - 59 U/L) 69 H ALT (21 - 72 U/L) 102 H Alkaline Phosphatase (< 127 U/L) 314 H Creatine Kinase (55 - 170 U/L) 127 Troponin I (<0.11 ng/ml) 0.04 Albumin (3.5 - 5.0 g/dL) 3.4 L Vitamin B12 (239 - 931 pg/mL) > 1000 H Cancelled Coagulation PT (9.4 - 12.5 SEC) 14.7 H INR (0.90 - 1.17) 1.40 H Hematology CBC w Diff NO MAN DIFF REQ WBC (4.8 - 10.8 /CUMM) 4.7 L RBC (4.70 - 6.10 /CUMM) 2.87 L Hgb (14.0 - 18.0 G/DL) 8.8 L Hct (42 - 52 %) 26.7 L MCV (80.0 - 94.0 FL) 92.8 MCH (27.0 - 31.0 PG) 30.6 RDW (11.5 - 14.5 %) 16.9 H Plt Count (130 - 400 /CUMM) 191 MPV (7.4 - 10.4 FL) 8.2 Gran % (42.2 - 75.2 %) 78.9 H Lymphocytes % (20.5 - 51.1 %) 10.2 L Monocytes % (1.7 - 9.3 %) 10.3 H Eosinophils % (0 - 5 %) 0.4 Basophils % (0.0 - 2.0 %) 0.2 Absolute Granulocytes (1.4 - 6.5 /CUMM) 3.7 Absolute Lymphocytes (1.2 - 3.4 /CUMM) 0.5 L Absolute Monocytes (0.10 - 0.60 /CUMM) 0.5 Absolute Eosinophils (0.0 - 0.7 /CUMM) 0 Absolute Basophils (0.0 - 0.2 /CUMM) 0 PUBS MCHC (33.0 - 37.0 G/DL) 33.0 07/200 2133 1900 Chemistry Ammonia (9 - 30 umol/L) 30 Troponin I (<0.11 ng/ml) 0.03 Hematology CBC w Diff MAN DIFF ORDERED WBC (4.8 - 10.8 /CUMM) 5.0 RBC (4.70 - 6.10 /CUMM) 2.84 L Hgb (14.0 - 18.0 G/DL) 8.8 L Hct (42 - 52 %) 26.2 L MCV (80.0 - 94.0 FL) 92.4 MCH (27.0 - 31.0 PG) 30.8 RDW (11.5 - 14.5 %) 16.8 H Plt Count (130 - 400 /CUMM) 187 MPV (7.4 - 10.4 FL) 8.4 Gran % (42.2 - 75.2 %) 82.3 H Lymphocytes % (20.5 - 51.1 %) 10.7 L Monocytes % (1.7 - 9.3 %) 7.0 Eosinophils % (0 - 5 %) 0 Basophils % (0.0 - 2.0 %) 0 Absolute Granulocytes (1.4 - 6.5 /CUMM) 4.1 Segmented Neutrophils (42.2 - 75.2 %) 87 H Absolute Lymphocytes (1.2 - 3.4 /CUMM) 0.5 L Lymphocytes (20.5 - 51.1 %) 8 L Monocytes (1.7 - 9.3 %) 5 Absolute Monocytes (0.10 - 0.60 /CUMM) 0.3 Absolute Eosinophils (0.0 - 0.7 /CUMM) 0 Absolute Basophils (0.0 - 0.2 /CUMM) 0 Platelet Estimate (ADEQUATE) ADEQUATE Polychromasia 1+ Hypochromic-Microcytic 1+ Anisocytosis 1+ Target Cells 1+ Stomatocytes FEW Elliptocytes FEW PUBS MCHC (33.0 - 37.0 G/DL) 33.4 Serology Virus Culture Pending 07/19 07/19 07/19 1732 1546 1546 Chemistry Sodium (137 - 145 mmol/L) 141 Potassium (3.5 - 5.1 mmol/L) 4.9 Chloride (98 - 107 mmol/L) 100 Carbon Dioxide (22 - 30 mmol/L) 19 L Anion Gap (5 - 16) 21 H BUN (9 - 20 mg/dL) 81 H Creatinine (0.7 - 1.2 mg/dL) 7.4 *H Estimated GFR (>60 ml/min) 7 L BUN/Creatinine Ratio (7 - 25 %) 10.9 Glucose (65 - 99 mg/dL) 111 H Lactic Acid (0.7 - 2.1 mmol/L) Cancelled 1.1 Calcium (8.4 - 10.2 mg/dL) 8.2 L Iron (49 - 181 ug/dL) 45 L Ferritin (17.9 - 464 ng/mL) 497.0 H Total Bilirubin (0.2 - 1.3 mg/dL) 9.3 H Direct Bilirubin (< 0.4 mg/dL) 8.6 H AST (17 - 59 U/L) 98 H ALT (21 - 72 U/L) 110 H Alkaline Phosphatase (< 127 U/L) 354 H [id number] Pept (<125 pg/mL) 45149 H Total Protein (6.3 - 8.2 g/dL) 6.1 L Albumin (3.5 - 5.0 g/dL) 3.4 L Globulin (1.9 - 4.2 gm/dL) 2.7 Albumin/Globulin Ratio (1.1 - 2.2 %) 1.3 Amylase (30 - 110 U/L) 137 H Lipase (23 - 300 U/L) 353 H Coagulation PT (9.4 - 12.5 SEC) 14.1 H INR (0.90 - 1.17) 1.35 H APTT (25 - 37 SEC) 38 H Serology Hepatitis A IgM Ab (NONREACTIVE) NONREACTIVE Hep Bs Antigen (NONREACTIVE) NONREACTIVE Hep B Core IgM Ab Conf (NONREACTIVE) NONREACTIVE Hepatitis C Antibody (NONREACTIVE) NONREACTIVE Toxicology Acetaminophen (10.0 - 30.0 ug/mL) < 10.0 L 07/19 1440 Hematology CBC w Diff NO MAN DIFF REQ WBC (4.8 - 10.8 /CUMM) 4.7 L RBC (4.70 - 6.10 /CUMM) 2.83 L Hgb (14.0 - 18.0 G/DL) 8.9 L Hct (42 - 52 %) 25.6 L MCV (80.0 - 94.0 FL) 90.6 MCH (27.0 - 31.0 PG) 31.3 H RDW (11.5 - 14.5 %) 17.6 H Plt Count (130 - 400 /CUMM) 239 MPV (7.4 - 10.4 FL) 9.1 Gran % (42.2 - 75.2 %) 81.3 H Lymphocytes % (20.5 - 51.1 %) 10.6 L Monocytes % (1.7 - 9.3 %) 7.0 Eosinophils % (0 - 5 %) 1.1 Basophils % (0.0 - 2.0 %) 0 Absolute Granulocytes (1.4 - 6.5 /CUMM) 3.8 Absolute Lymphocytes (1.2 - 3.4 /CUMM) 0.5 L Absolute Monocytes (0.10 - 0.60 /CUMM) 0.3 Absolute Eosinophils (0.0 - 0.7 /CUMM) 0.1 Absolute Basophils (0.0 - 0.2 /CUMM) 0 PUBS MCHC (33.0 - 37.0 G/DL) 34.6 Imaging/Other Studies: TTE CONCLUSIONS Normal left ventricular systolic function. Left atrial enlargement. Mild to moderate Aortic stenosis. Mild to moderate Mitral stenosis. Moderate Pulmonary hypertension.
[2017-07-21 16:00] VITALS: BP 120/70
[2017-07-21 23:21] VITALS: BP 142/62
[2017-07-22 05:55] LABS: ABSOLUTE BASOPHIL COUNT 0 /CUMM (0.0-0.2); ABSOLUTE EOSINOPHIL COUNT 0.1 /CUMM (0.0-0.7); ABSOLUTE GRANULOCYTE CT 3.9 /CUMM (1.4-6.5); ABSOLUTE LYMPH COUNT 0.6 /CUMM (1.2-3.4); ABSOLUTE MONOCYTE COUNT 0.6 /CUMM (0.10-0.60); BASOPHIL % 0 % (0.0-2.0); EOSINOPHIL % 1.9 % (0-5); MEAN CORPUSCULAR HGB 30.8 PG (27.0-31.0); MEAN CORPUSCULAR HGB CONC 33.2 G/DL (33.0-37.0); MEAN PLATELET VOLUME 8.4 FL (7.4-10.4); PLATELET COUNT 186 /CUMM (130-400); RBC DISTRIBUTION WIDTH 16.6 % (11.5-14.5); WHITE BLOOD CELL COUNT 5.2 /CUMM (4.8-10.8)
[2017-07-22 08:00] VITALS: BP 160/60
--- NOTE | 2017-07-22 08:08 | RADIOLOGY REPORT ---
EXAMINATION: XR PORTABLE CHEST CLINICAL INFORMATION: Bilateral wheezing COMPARISON: 07/19/2017 TECHNIQUE: Portable AP view of the chest was obtained. FINDINGS: Marked elevation of the left hemidiaphragm is unchanged. There is increased linear atelectasis at the left lung base and mild subsegmental atelectasis at the right lung base. No dominant consolidation or evidence of pulmonary edema. Median sternotomy wires are demonstrated. The heart remains enlarged. IMPRESSION: Persistent marked elevation of the left hemidiaphragm with slight increased linear atelectasis at the left base and minimal atelectasis at the right base. No evidence of pulmonary edema.
--- NOTE | 2017-07-22 08:23 | PN- Housestaff ---
Ruchi BAIN,[facility] 07/22/17 0823: Subjective Follow-up For: - Abnormal liver chemistries - Influenza A swab positive - ESRD on HD - HTN - Syncope Subjective: Patient was seen and examined at bedside. He reports that he intermittently felt short of breath last night despite being on the oxygen. He gets breathing treatment which significantly improve his breathing. Denies any chest pain, nausea, vomitting, abdominal pain or any other associated symptoms. Review of Systems Constitutional: Reports: no symptoms. Objective Last 24 Hrs of Vital Signs/I&O Vital Signs Date Time Temp Pulse Resp B/P B/P Pulse O2 O2 Flow FiO2 Mean Ox Delivery Rate 07/22 08 98.1 96 24 160/60 95 Nasal 4.0L Cannula 07/22 08 96 Nasal 4.0L Cannula 07/22 0000 94 Nasal 2.0L Cannula 07/21 2321 98.5 96 20 142/62 94 Nasal 2.0L Cannula 07/21 2200 94 Nasal 2.0L Cannula 07/21 1600 93 Nasal 2.0L Cannula 07/21 1600 98.2 88 20 120/70 94 Nasal 2.0L Cannula Intake & Output 07/22 1600 07/22 0800 07/22 0000 Intake Total 0 120 Output Total 100 120 Balance -100 0 Intake, IV 0 0 Intake, Oral 0 120 Number 0 0 Bowel Movements Output, Urine 100 120 Patient 239 lb Weight Weight Bed scale Measurement Method Physical Exam General Appearance: Alert, Oriented X3, Cooperative, No Acute Distress Skin: No Rashes, No Breakdown Skin Temp/Moisture Exam: Warm/Dry Sepsis Skin Exam (color): Jaundiced HEENT: Atraumatic Cardiovascular: Regular Rate, systolic murmur Lungs: mild expiratory wheeze Abdomen: Soft, No Tenderness Neurological: Normal Speech Extremities: No Edema Assessment/Plan Assessment: Mr Martinez has a PMHx of coronary artery disease s/p CABG, colon cancer status post resection and anastomosis, HFpEF uses nocturnal O2 as needed, moderate , NASRA not on CPAP, chronic back pain w/ neurostimulator in place, ESRD on HD was brought in after he was found to be hypoxemic 84% while he was sitting in his chair, and subsequently had a syncopal episode likely from dehydration. Plan: 1. Influenza- He was started on oseltamivir, which will be continued. Will consider increasing dose after discussing with Nephrology. - He has significant wheezing. - Will start him on IV SoluMedrol q12. Will taper as condition improves. 2. Abnormal liver chemistries- - Monitor vitals closely. If he as fever or has any abdominal pain, would consider ERCP - His LFTs have been rising. GI has been consulted again this morning and they will be seeing him. - U/S abdomen in the meantime. His last U/S showed cholelithiasis without evidence of cholecystitis. 3. Syncope- Likely from dehydration. - Was evaluated by the feed elevator worker. - Echocardiogram done on 07/20 showed aortic stenosis (moderate). 3. ESRD on HD - He undergoes dialysis M/W/F - Renal dialysis diet. 4. HTN -Were held at admission - Restarted Amlodipine this morning as blood pressure is running on the high side. - Consider starting other HTN meds. 5. GI bleed- - H&H stable - Monitor closely. Housekeepin. Diet- Renal dialysis diet. 2. DVT PPx- ALPS for now. 3. Code- full code. 4. Consults-Nephor, GI. Problem List: 1. Elevated LFTs Pain Ratin Pain Location: none Pain Goal: Remain pain free Pain Plan: none Tomorrow's Labs & Rationales: CBC, BEP, LFTs Jay Currie MD 07/22/17 1228: Attending MD Review Statement Attending Statement Attending MD Statement: examined this patient, discuss w/resident/PA/ADULT EDUCATOR, agreed w/resident/PA/ADULT EDUCATOR, discussed with family, reviewed EMR data (avail), discussed with nursing, discussed with case mgmt, reviewed images, amended to note Attending Assessment/Plan: Impressoin 87 year old man * elevated lfts, jaundice * dyapnea - influenza - possible bronchiolitis/infectious reactive airways * nasra declines cpap therapy * esrd on hd * chronic hypoxemic and hypercarbic respiratory failure Plan -solumedrol 40mg iv q12h -TRC/Nebs - goal spo2 >90% -f/u gastroenterology recs -f/u ultrasound -f/u cardiology recs -tamiflu course for influenza A -HD per nephrology DVT prophylaxis at all times 1. Diet- Renal dialysis diet. 2. DVT PPx- ALPS for now. 3. Code- full code. 4. Consults-Nephor, GI. Problem List: 1. Elevated LFTs Pain Ratin Pain Location: none Pain Goal: Remain pain free Pain Plan: none Tomorrow's Labs & Rationales: CBC, BEP, LFTs Jay Currie MD 07/22/17 1228: Attending MD Review Statement Attending Statement Attending MD Statement: examined this patient, discuss w/resident/PA/ADULT EDUCATOR, agreed w/resident/PA/ADULT EDUCATOR, discussed with family, reviewed EMR data (avail), discussed with nursing, discussed with case mgmt, reviewed images, amended to note Attending Assessment/Plan: Impressoin 87 year old man * elevated lfts, jaundice * dyapnea - influenza - possible bronchiolitis/infectious reactive airways * nasra declines cpap therapy * esrd on hd * chronic hypoxemic and hypercarbic respiratory failure Plan -solumedrol 40mg iv q12h -TRC/Nebs - goal spo2 >90% -f/u gastroenterology recs -f/u ultrasound -f/u cardiology recs -tamiflu course for influenza A -HD per nephrology DVT prophylaxis at all times
[2017-07-22 12:00] VITALS: BP 162/82
--- NOTE | 2017-07-22 12:00 | Transfer of Care Summary ---
Hospital Course Course Hospital Course: Mr Martinez has a PMHx of coronary artery disease s/p CABG, colon cancer status post resection and anastomosis, HFpEF uses nocturnal O2 as needed, moderate , ROBYN not on CPAP, chronic back pain w/ neurostimulator in place, ESRD on HD was brought in after he was found to be hypoxemic 84% while he was sitting in his chair, and subsequently had a syncopal episode that lastted for ten minutes, which was witnessed by his . As per the , he was told that there was "yellowish tinge of his HD filters" likely from his jaundice, and also missed a dialysis session due to increased fatigue, sorethroat and myalgias a few days prior to the illness. At the time of admission, he was afebrile, pulse in 70s, RR 20, BP 113/59, saturating 90% on 2 L nasal cannula. Overnight, vitals remained stable. Tm 99.3, BP was stable SBP 120-130s. Infl A +. Also was found to have very high level of bilirubin. He was admitted to ICU for closer monitoring of vitals, with a plan to be downgraded if vitals remain stable for the first 24 hrs. Pertinent lab data while he was in the ICU: WBC: 4.7, Hb 8.8 Na 140, K 5.5, HCO3 19, AG 22 ( likely metabolic ). Sr Cr 7.4-->8.4( 07/20)-->5.6(07/21) Tbili 9.3-->5.6(07/20)-->8.8(07/21) AST 98-->69 (07/20)-->90(07/21) ALT 110-->102(07/20)-->102(07/21) Alk Phos 354-->314-->364(07/21), Alb 3.4, INR 1.4, tylenol neg, Lipase 353. TropI 0.03, 0.04; proBNP 49600 vit B12 > 1000 CT head: No evidence for acute intracranial injury. Age-appropriate appearance of the brain. CT chest, abdomen: 1. Asymmetric elevation of left diaphragm compared to right. Atelectasis at left lung base. No acute change of the chest. 2. Stable cystic lesion inferior right lobe of liver. No suspicious liver lesion. 3. Cholelithiasis without acute change of gallbladder wall. 4. Atrophic right kidney. Bilateral renal cysts. No acute abnormality of kidneys. 5. Diverticulosis of colon without acute change of bowel. Status post prior surgical anastomosis at sigmoid colon intact. 6. Stable left adrenal lesion. US abdomen: Liver of mildly heterogeneous echogenicity. No intrahepatic biliary ductal dilation. 4.8 cm cyst within the right lobe with peripheral calcification. Cholelithiasis without evidence of cholecystitis. 1. Influenza- He was started on oseltamivir, and largely remained stable. He did not require any abx for any secondary bacterial infection. He had occassional, low grade temperature but did not show any decompensation. While he showed an overal clinical improvement, he developed respiratory distress that required increase in oxygen demand during the course of stay in the ICU. Although, not ideal in view of influenza A, intravenous steoids were started for the acute tx of inflammation of lower airways. 2. Abnormal liver chemistries- Since the liver chemistries showed improvement, we thought that the etiology was likely due to a gall stone that may have passed. Increase in bilirubin and worsening liver enzymes indicated some kind of systemic process such as infection causing biliary stasis. Other uncommon etiologies such as cholestasis from flu or could be entertained. He had abnormal pANCA in the past, which makes auto-immune casues a possibility, but unlikely. Since, the liver chemistries that clearly did not show a uptrend, or hemodynamic unstabiltiy intervention such as ERCP was defered. Abstract Clerk, Dr. Strong was consulted for advise. Etilogy is still unclear in his case, and would prompt some immunological work up as an outpatient. If he has any worsenign symptoms, or have any s/o cholangitis, an arrangemnt should be made for an ERCP, although yield is low. 3. Syncope- Likely from dehydration. This acute change that could have resulted from influenza, which could have affected both repiratory and GI, resulting in dehydration that led to a syncopal episode. Since he had moderate , cardiac cause is not completely ruled out. He was evaluated by a cadiologist, and a repeat echocardiogram was obtained-which revealed moderate aortic stenosis, which is not completely attributed to his syncope. 3. ESRD on HD- Since he missed his session of HD, a few extra session was arranged by the investigator operator. HD sessions were largely uneventful. 4. HTN- In regards to his anti-hypertensives, the medications were restarted as the BP allowed. His other anti-hypertensives should be restarted as the BP allowed. 5. GI bleed- He did not have any episodes of GI bleed while he was in the ICU. After he was more stable after 24hrs, he was to be transfered to the general medical floors, but due to non[facility]availability [facility], he was kept in the ICU. Housekeepin. Diet- Renal dialysis diet. 2. DVT PPx- ALPS for now. 3. Code- full code. 4. Consults-Nephor, GI. Assessment/Plan: as above Attending Review Statement Documenting Attending: Jay Currie MD Discussed the plan w/ the attending and also GI. Attending Review Statement Documenting Attending: Jay Currie MD
--- NOTE | 2017-07-22 16:22 | ULTRASOUND REPORT ---
EXAMINATION: US ABDOMEN LIMITED CLINICAL INFORMATION: Jaundice. Elevated bilirubin. COMPARISON: Limited abdominal ultrasound done on 07/19/[address] of the abdomen and pelvis done on 07/19/2017. TECHNIQUE: Real-time imaging of the right upper quadrant abdominal viscera. FINDINGS: The evaluation is technically limited due to suboptimal visualization. PANCREAS: Not visualized. LIVER: Poorly visualized. Increased echotexture is noted. There is suggestion of subtle intrahepatic biliary ductal prominence present within the left lobe. There is a complex heterogeneous cystic mass identified within the right lobe measures 5.2 cm at its maximum dimension, better visualized on prior CT study done on 07/19/2017. GALLBLADDER: Not visualized. COMMON BILE DUCT: Not visualized. RIGHT KIDNEY: Not visualized. FREE FLUID: None. IMPRESSION: Suboptimal evaluation due to patient's body habitus. Alternative imaging modality such as MRCP may be considered for further full detailed evaluation, if clinically appropriate.
[2017-07-22 16:30] VITALS: BP 164/76
[2017-07-22 23:27] VITALS: BP 164/80
[2017-07-23 06:58] VITALS: BP 162/82
[2017-07-23 09:15] LABS: ABSOLUTE BASOPHIL COUNT 0 /CUMM (0.0-0.2); ABSOLUTE EOSINOPHIL COUNT 0 /CUMM (0.0-0.7); ABSOLUTE GRANULOCYTE CT 4.1 /CUMM (1.4-6.5); ABSOLUTE LYMPH COUNT 0.2 /CUMM (1.2-3.4); ABSOLUTE MONOCYTE COUNT 0.1 /CUMM (0.10-0.60); BASOPHIL % 0 % (0.0-2.0); EOSINOPHIL % 0 % (0-5); GRANULOCYTE % 92.1 % (42.2-75.2); HEMATOCRIT 25.7 % (42-52); MEAN CORPUSCULAR HGB 30.5 PG (27.0-31.0); MEAN CORPUSCULAR HGB CONC 32.7 G/DL (33.0-37.0); MEAN CORPUSCULAR VOLUME 93.3 FL (80.0-94.0); MEAN PLATELET VOLUME 8.4 FL (7.4-10.4); PLATELET COUNT 201 /CUMM (130-400); RBC DISTRIBUTION WIDTH 17.1 % (11.5-14.5); RED BLOOD CELL CT 2.75 /CUMM (4.70-6.10); WHITE BLOOD CELL COUNT 4.4 /CUMM (4.8-10.8)
--- NOTE | 2017-07-23 11:01 | PN- Att Addend ---
Attending Addendum Attending Brief Note Patient seen and examined his morning. He appears to be more comfortable and yesterday on steroids. Overall there were no events overnight. He has been transferred to the general medical floor. Blood pressure stable. He is saturating 92% on 4 L nasal cannula. His bilirubin is reduced from yesterday. Abdominal ultrasound was suboptimal due to patient's body habitus. An alternative imaging was recommended. Generally - Awake, alert and comfortable without distress Head and neck - normocephalic, atraumatic, EOMI grossly intact Cardiovascular - S1, S2 Lungs -bilateral rhonchi that are scattered Abdomen - Bowel sounds positive, soft, non-tender Extremities - without edema Current Medications Sig/Tiffanie Start time Last Medication Dose Route Stop Time Status Admin Albuterol Sulfate 3 ML EVERY 4 HRS/AWAKE 07/22 1200 AC 07/23 INH 0751 Amlodipine Besylate 10 MG DAILY 07/22 1117 AC 07/23 PO 0924 Aspirin 81 MG DAILY 07/20 1000 AC 07/23 PO 0924 Cholecalciferol 1,000 IU DAILY 07/20 1000 AC 07/23 PO 0924 Docusate Sodium 100 MG BID 07/22 1115 AC 07/23 PO 0924 Duloxetine HCl 30 MG DAILY 07/22 1116 AC 07/23 PO 0924 Epoetin Earnest 2,000 UNIT TU THURS SAT 07/20 1424 AC 07/20 IV 1716 Gabapentin 300 MG QPM 07/20 2200 AC 07/22 PO 2211 Isosorbide 15 MG QPM 07/22 2200 CAN Mononitrate PO Levothyroxine Sodium 0.05 MG DAILY 07/20 1000 AC 07/23 PO 0924 Lidocaine 2 PAT Q24H 07/21 1630 AC 07/22 EXT 1649 Lidocaine 1 ANI DAILY NEEDED PRN 07/20 1015 AC TOP Lidocaine/Prilocaine 1 ANI DAILY PRN 07/20 1315 AC 07/21 TOP 0603 Methylprednisolone 40 MG Q12 07/22 2200 DC 07/23 IV 0924 Methylprednisolone 40 MG Q8 07/22 1145 DC 07/22 IV 1239 Oseltamivir Phosphate 30 MG 2200 07/20 0001 AC 07/22 PO 07/24 0000 2211 Pantoprazole Sodium 40 MG DAILY 07/20 1000 AC 07/23 IV 0924 Polyethylene Glycol 17 GM DAILY AC 07/22 1118 AC 07/23 PO 0814 Prednisone 40 MG DAILY 07/23 1000 AC PO 07/26 1001 Senna 187 MG DAILY 07/22 1115 AC 07/23 PO 0924 Sevelamer Carbonate 800 MG WM 07/20 0800 AC 07/23 PO 0814 Vitamin E 400 IU DAILY 07/20 1000 AC 07/23 PO 0924 Laboratory Tests 07/23/17 0520: Anion Gap 18 H, Estimated GFR 9 L, BUN/Creatinine Ratio 9.7, Total Bilirubin 7.8 H, Direct Bilirubin 6.9 H, AST 85 H, ALT 101 H, Alkaline Phosphatase 425 H, Total Protein 6.4, Albumin 3.5, CBC w Diff MAN DIFF ORDERED, RBC 2.75 L, MCV 93.3, MCH 30.5, RDW 17.1 H, MPV 8.4, Gran % 92.1 H, Lymphocytes % 5.5 L, Monocytes % 2.4, Eosinophils % 0, Basophils % 0, Absolute Granulocytes 4.1, Segmented Neutrophils 79 H, Band Neutrophils 4, Absolute Lymphocytes 0.2 L, Lymphocytes 11 L, Monocytes 6, Absolute Monocytes 0.1, Absolute Eosinophils 0, Absolute Basophils 0, Nucleated RBCs 1 H, Platelet Estimate ADEQUATE, Hypochromic-Microcytic 2+, Anisocytosis 1+, PUBS MCHC 32.7 L Vital Signs Date Time Temp Pulse Resp B/P B/P Pulse O2 O2 Flow FiO2 Mean Ox Delivery Rate 07/23 0924 95 158/80 07/23 0800 Nasal 4.0L Cannula 07/23 0658 97.8 103 18 162/82 91 07/23 0000 94 Nasal 4.0L Cannula 07/22 2327 98.5 103 20 164/80 94 Nasal 4.0L Cannula 07/22 1631 92 Nasal 4.0L Cannula 07/22 1630 164/76 07/22 1600 94 Nasal 4.0L Cannula 07/22 1240 98 162/82 07/22 1200 98.7 98 20 16282 96 Nasal 4.0L Cannula Intake & Output 07/23 1600 07/23 0800 07/23 0000 Intake Total 480 615 Output Total 200 Balance 480 415 Intake, IV 15 Intake, Oral 480 600 Number 1 1 Bowel Movements Output, Urine 200 Patient 240 lb Weight Weight Bed scale Measurement Method Assessment/Plan Assessment/Plan Impressoin 87 year old man * elevated lfts, jaundice * dyapnea - influenza - possible bronchiolitis/infectious reactive airways * nasra declines cpap therapy * esrd on hd * chronic hypoxemic and hypercarbic respiratory failure Plan -keep solumedrol 40mg iv q12h with a plan to reduce to 40mg prednisone tomorrow -TRC/Nebs - goal spo2 >90% -f/u gastroenterology recs, f/u and trend lfts, d/w GI what imaging modality if any would be recommended -f/u cardiology recs -tamiflu course for influenza A -HD per nephrology DVT prophylaxis at all times Consult Acknowledgment - Thank you for your consult request.
[2017-07-23 15:16] VITALS: BP 160/80
[2017-07-23 19:30] VITALS: BP 160/80
[2017-07-23 21:56] VITALS: BP 170/84
--- NOTE | 2017-07-23 22:31 | Event Note ---
Event Note Event Note: S: Paged by nurse Patient is drowsy B: Patient has a PMHx of coronary artery disease s/p CABG, colon cancer status post resection and anastomosis, HFpEF uses nocturnal O2 as needed, moderate , ROBYN not on CPAP, chronic back pain w/ neurostimulator in place, ESRD on HD was brought in after he was found to be hypoxemic 84% while he was sitting in his chair, and subsequently had a syncopal episode that lastted for ten minutes, which was witnessed by his . He is currently being treated for influenza, syncope likely because of dehydration, abnormal liver chemistries of unclear etiology (His last U/S showed cholelithiasis without evidence of cholecystitis) A/R: Pt is presently gentleman lying in bed arousable only to pain stimulus, S1 plus S2, lungs clear. at bedside -ABGs ordered, PH 2.5 PCO2 52 oxygen 90 bicarbonate 23 saturating 94% -Patient started on BiPAP (18/12) was initially hesitant explained the pathophysiology and end point of intubation, she agreed to BiPAP Last time patient was alert and oriented around 9pm when he received his life medications as per the -We will repeat ABGs in 1 hour, chest x-ray ordered ammonia level ordered *Dr. Lang evaluated the pt and made above mentioned reccs -Chest x-ray unchanged from the previous one ammonia level 35 -Repeat ABGs show pH 7.28 PCO2 51 PO2 87, patient remains on BiPAP and is still not arousable. *Discussed with Dr. Lang -Patient will be kept on BiPAP RR 26 throughout the night with setting of repeat ABGs 6 AM in the morning
--- NOTE | 2017-07-23 23:25 | RADIOLOGY REPORT ---
EXAMINATION: XR PORTABLE CHEST CLINICAL INFORMATION: Unarousable, desaturations COMPARISON: 07/22/2017 TECHNIQUE: Portable frontal view of the chest was obtained. FINDINGS: There is redemonstrated elevation of the left hemidiaphragm with adjacent streaky opacity at the base favoring atelectasis. Subsegmental atelectasis is also suspected at the right lung base, similar to prior. No new consolidation is seen bilaterally. No evidence of pneumothorax or definite pleural effusion. The cardiac silhouette appears prominent in size, similar to prior. Sternal wires are present. No acute osseous findings are seen. IMPRESSION: No significant change from 07/22/2017. Redemonstrated left hemidiaphragm elevation and suspected bibasilar atelectasis.
[2017-07-24 00:10] VITALS: BP 152/76
[2017-07-24 06:31] VITALS: BP 152/84
--- NOTE | 2017-07-24 07:29 | PN- Gastroenterology ---
Assessment/Plan Assessment/Recommendations: 87 y/o male, full code, with numerous co-morbidities, remotely seen by myself in inpt GI consultation 10/02/15, with intermittent OB+ stool, not c/w outpt PillCam (*see below), post multiple EGD/colonoscopy/push enteroscopy, CKD & HD- dependent since spring 2016 (post LUE AVF 12/01/16), who presented to the [facility] 07/19/17, BIBA with syncope (witnessed by his , Andrea), hypoxia, urinary & fecal incontinence (no witnessed seizure), history of falls, fatigue, nasal congestion, symptoms of URI with cough productive of brown sputum, found to be yellow with elevated LFTs. He denied any fevers, chills, rashes, myalgias , or acute arthralgias (aside from DJD). He had mild diarrhea 1 day JACKSPOOLER, treated with Imodium. When he was incontinent, the stools were "dark" without gross BRB or hematemesis. The stools were OB positive in the ER, without fresh blood. They were later dark brown, trace OB positive, on my digital exam . Upon arrival to the [facility] 07/19/17 at 2:06 p.m., BP 92/50, P 76, R 20, T 97.5, O2 sat RA 90%, improving to 95% on 2L nc. His BP improved after IVF. He last had HD 07/17/17 & missed his HD slot 07/19/17, due to the above. He denied any nausea, vomiting, abdominal pain, early satiety, constipation, obstipation, tenesmus, or rectal bleeding. The mild diarrhea had resolved. He was on baby aspirin 81 mg daily. He denied any NSAIDs or Plavix. Regarding the dark stool, he was on iron, although apparently this was switched to IV Fe & EPO. He was not on any Pepto-Bismol. He was told he looked yellow at HD on . His GB was intact. He denied any dark urine, light stool, or pruritus. He currently denied any confusion, although he was slightly confused after the syncopal event, according to his . There was no documented head trauma or abdominal trauma. His GI ROS from above & below were otherwise negative. The patient was taking approximately 2 g of Tylenol daily. He had been off Percocet for some time. He denied any new medications or herbal medications, aside from low dose Vitamin E 400 IU daily, rxd by renal in 06/2017. He denied any additional OTC medications. He was subsequently found to have 07/19/17: *influenza type A His outpatient medication list included baby ASA, Amlodipine, Colace, Labetalol, vitamin D, isosorbide, Renvela, TORIBIO, Senokot, Colace, Atorvastatin, Vit E, Lidocaine patch, Tylenol, & Miralax. He denied any history of viral hepatitis. Apparently, he was recently started on Hep A & B vaccination series. He denied any EtOH, illicit street drugs, or IVDA. He had been transfused in the past. There was no gross hematuria, epistaxis, gum bleeding, or hemoptysis. He denied any chest pain or shortness of breath. Regarding the LFTs, there is no family history of any inherited liver disease or IBD. There is a positive family history of colon CA (pt's M- 58), & positive family history of colon adenoma (pt's dtr, Jessica). The patient's other numerous issues include prior rx narcotic-induced encephalopathy, which cleared after Narcan, chronic left chest wall pain post shingles, *chronic Fe def anemia, HTN, HLD, & ASHD post CABG 5 in 2000, [place], history of complex right-sided hepatic cysts, chronic low back pain with indwelling neurostimulator low back 05/2015, neuropathy, history of sciatica, diverticulosis coli, DJD, knee replacement, surgery, hypothyroid, carpal repair, , CHF, pulmonary HTN, ROBYN on O2-2L nc hs. 09/10/07: EGD- mild esophagitis, J-shaped stomach, H. pylori negative gastritis 10/24/07: Sigmoid resection by Dr. 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 There was no residual colon cancer found surgically, with negative lymph nodes. 09/25/07: PET- negative. 04/27/09: Colonoscopy to cecum- rectal telangiectasias of unknown etiology with clean anastomosis at 23 cm, left-sided diverticula plus removal of 2 benign tubular adenomas. 12/11/14: CEA 1.7, Fe sat 2.4%, ferritin 10.2. 12/19/14: *low IgA 78, tTG Ab- neg, DGP Ab- neg. 01/08/15: *Combined upper endoscopy to the third portion of the duodenum with biopsy, plus colonoscopy to the cecum with biopsies- normal esophageal mucosa with a minimally irregular Z-line at 40 cm, and a somewhat J-shaped stomach. Biopsy of 2 x 2 mm excrescences at the lesser curvature of the stomach- mild chronic fundic gastritis, H. pylori negative. Random biopsies of the second and third portions of the duodenum- no significant villous blunting (nothing on biopsies to suggest celiac sprue), mild chronic duodenitis, slightly nodular duodenal bulb showing Renzo gland hypertrophy and focal gastric metaplasia. Moderate left-sided diverticula, post sigmoid resection with a clean anastomosis at 23 cm, multiple sessile 5 mm polyps removed via cold biopsies, including one from the right colon showing benign tubular adenoma, two from the transverse colon showing benign sessile serrated polyp/adenoma, biopsy of the left colon unremarkable, biopsy of a small rectal polyp at 10 cm- benign hyperplastic polyp with focal sessile serrated polyp/adenoma. 05/30/15: normal LFTs, decreased ferritin 11.5, iron 24, TIBC 415, Fe sat 5.8%. 07/22/2015: normal SPEP/IPEP. 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 10/02/15: EGD to jejunum (160 cm from the incisors) with pedicolon- 1. Superficial antral erosions, without any active bleeding. 2. Superficial erosions in the duodenal bulb, without any active bleeding. 3. Clot washed clear from the post bulbar region, with normal-appearing underlying mucosa. 4. Slightly J-shaped stomach. 5. Otherwise, negative study to the jejunum. [The patient was endoscoped 3 times, with the single channel scope, the double channel scope, and the pediatric colonoscope from above, down to the jejunum, 160 cm from the incisors]. *The pt subsequently refused outpt PillCam multiple times (rule out angiodysplasias associated with CKD and/or ). The pt was most recently admitted to [facility] 10/28/16 - 11/08/16, for acute on chronic respiratory failure, multifactorial volume overload, CKD, & normocytic anemia-> EPO. 09/06/16: *HIV- neg. 09/07/16: *Hep A Ab, Hep Bs Ag, Hep B core Ab, Hep C Ab- all neg. 07/19/17: Admission labs- WBC 4.7, H/H 8.9/25.6, MCV 90.6, RDW 17.6, PLT 239, PT 14.1, INR 1.35, PTT 38, glucose 111, BUN/Cr 81/7.4, GFR 7, Na 141, K 4.9, HCO3 19, AG 21, lactate 1.1, Ca 8.2, amylase/lipase 137/353, albumin 3.4, globulin 2.7, *TBil 9.3, DBil 8.6, alk phos 354, AST 98, ALT 110, nl NH3 30, [Tylenol] < 10; Fe 45 (? no TIBC), ferritin 497, BNP 25,300, *troponin- pending, *Hep A, B, & C serologies- pending. 07/19/17: *Rapid viral influenza A/B: + influenza Type A. 07/19/17: EKG- NSR @ 76, 1st degree AVB, GA .261, normal axis (V3 missing), NSST flattening. 07/19/17: XRY-PORTABLE CHEST XRAY- No definite evidence of pulmonary edema at this time. Elevated left hemidiaphragm, chronic. Mediastinum is difficult to assess with this technique. 07/19/17: CT CHEST, ABDOMEN AND PELVIS WITHOUT CONTRAST- 1. Asymmetric elevation of left diaphragm compared to right. Atelectasis at left lung base. No acute change of the chest. 2. Stable cystic lesion inferior right lobe of liver. No suspicious liver lesion. No ascites. 3. Cholelithiasis without acute change of gallbladder wall. No dilated ducts. 4. Atrophic right kidney. Bilateral renal cysts. No acute abnormality of kidneys. 5. Diverticulosis of colon without acute change of bowel. Status post prior surgical anastomosis at sigmoid colon intact. 6. Stable left adrenal lesion. 7. Small B/L IH. 8. DJD. Dextroscoliosis mid-L spine. 07/19/17: RUQ ABDOMINAL ULTRASOUND (LIMITED)- Liver of mildly heterogeneous echogenicity. No intrahepatic biliary ductal dilation. CBD 4 mm. Old 4.8 cm cyst within the right lobe with peripheral calcification. Cholelithiasis without evidence of cholecystitis. 07/19/17: CT HEAD WO IV CONTRAST- No evidence for acute intracranial injury. Age-appropriate appearance of the brain. Upon completion of the 07/19/17: GI consult, I felt that most likely, the patient's LFTs, which were more cholestatic > transaminitis, were most likely secondary to some systemic process, probably infectious in nature. The 07/19/17: *Rapid viral influenza A/B: + influenza Type A was noted, & perhaps this is the source. The patient was on no new medications to cause the above. He was on Atorvastatin, which usually causes more of a transaminitis than cholestasis. Amlodipine can cause hepatitis. The hypotension may have contributed to the LFTs , as well. I felt that his cholelithiasis was incidental in nature, without any cholecystitis, choledocholithiasis, or dilated ducts. His hepatic cyst was incidental as well. I felt that the yield of an MRCP would be low, and the patient has an implanted neurostimulator, probably prohibiting this. I did not feel that the risk:benefit ratio warranted the more invasive ERCP. Admission [ Tylenol] < 10. *With regards to the anemia, which is chronic in nature, on my exam he had brown , trace OB positive stool. He has had an extensive GI workup for the above, including relatively recent EGD/colonoscopy/push enteroscopy to the jejunum. The patient was repeatedly noncompliant with a suggested outpt PillCam. He certainly could have small bowel angiodysplasias, which could be associated with CKD and/or (Heyde's syndrome). Clinically, I did not feel that he was actively GI bleeding to the point that would warrant a repeat EGD. He was hypotensive, which resolved. I did not think this was from the mildly OB positive stool, but rather from dehydration and possible sepsis. 07/19/17: *Viral culture- pending. 07/19/17: *Hep A Ab, Hep Bs Ag, Hep B core Ab, Hep C Ab- all negative. 07/20/17: 12:20 a.m.- WBC 5.0 (87S/8L/5M), H/H 8.8/26.2, MCV 92.4, RDW 16.8, PLT 187, 07/20/17: 5:15 a.m.- WBC 4.7, H/H 8.8/26.7, MCV 92.8, RDW 16.9, PLT 191, PT 14.7 , INR 1.40, glucose 88, BUN/Cr 87/8.4, GFR 6, Na 140, K 5.5, HCO3 19, AG 22, Ca 8.3, PO4 7.2, Mg 1.7, alb 3.4, TBil 5.6, alk phos 314, AST 69, ALT 102, CK 127, B12 > 1000, troponin- neg x 2. *The patient was started on Tamiflu 07/20/17. The patient's Hgb remained relatively stable for him. His LFTs were improving. Numerous consultants' notes appreciated (i.e.- ICU, renal, cardiology, etc.). The patient's implantable neurostimulator was not compatible with MRCP. As his LFTs were coming down, I did not push for ERCP. He had no signs of cholangitis, nor any dilated ducts. Again, ? if LFTs were rx in nature to a systemic process, such as influenza A. He remained on EPO. Pantoprazole was continued. Atrovastatin was held. Ibuprofen was never given, & D/C'd. He remained on baby ASA. *As of 07/20/17, the patient remained hemodynamically stable & currently afebrile (T 97.2, Tm 99.3), with O2 sat 2L nc- 97%. He received HD 07/20/17, as he missed his routine HD 1 day prior. He denied any over GI bleeding (dark brown stool, trace OB+ on my 07/19/17: digital exam). He denied any subjecive fevers, chills, abdominal pain, nausea, vomiting, or diarrhea. He remained with a cough productive of brown sputum. He had no CP or SOB. His fatigue was improving & he was tolerating clears po. 07/20/17: S. 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 *As of 07/21/17, the patient remained hemodynamically stable in the ICU, with O2 sat 2L nc- 93%. T 98.7 with Tm 99.9, on Tamiflu. Serologic testing for atypical pneumonia- negative. There was no overt GI bleeding. The patient was getting HD. He had tolerated clears po. He was tentatively made NPO by the ICU team, as his bilirubin had bumped up. He remained completely asymptomatic from a GI perspective, without any abdominal pain, nausea, vomiting, chills, confusion, or pruritus. He remained yellow. Recent imaging studies, including CT/sono, without dilated ducts. Again, implantable neurostimulator prohibited MRCP. His outpt Atorvastatin had been discontinued. He had a dry cough, with some nasal congestion. He denied any chest pain or shortness of breath. *At the moment, I still felt that the patient's LFTs were probably reactive in nature, due to some systemic process, possibly the influenza A. His cholelithiasis most likely is incidental in nature. With the magnitude of his predominantly elevated direct bilirubin, I would expect dilated ducts on imaging studies, which he has not had. Unfortunately, MRCP could not be performed because of an implantable neurostimulator. At present, I feel that the risk: benefit ratio does not want an invasive ERCP. He had a completely benign abdominal exam. 07/22/17: XRY-PORTABLE CHEST XRAY- Persistent marked elevation of the left hemidiaphragm with slight increased linear atelectasis at the left base and minimal atelectasis at the right base. No evidence of pulmonary edema. 07/22/17: US-LIMITED ABDOMEN- Suboptimal evaluation due to patient's body habitus. GB. CBD, & liver poorly visualized. Questionable subtle dilated IHD left lobe. Known stable cystic lesion inferior aspect of right lobe, dating back to at least 09/26/15. Alternative imaging modality such as MRCP may be considered for further full detailed evaluation, if clinically appropriate. DICTATED BY: Sunil Hood MD [As previously stated in my initial GI consult of 07/19/17, the patient *can't have MRCP due to implantable neurostimulator]. 07/23/17: XRY-PORTABLE CHEST XRAY- No significant change from 07/22/2017. Redemonstrated left hemidiaphragm elevation and suspected bibasilar atelectasis. *Weekend events & multiple notes noted. The patient was transferred to General Medicine on the ICU, as per transfer note of 07/22/17. The patient's major issues remain primarily related to his influenza and CO2 retention, with a smaller component of hypoxia. He was placed on BiPAP. He was lethargic the evening of 07/23/17, which improved after BiPAP. His LFTs had fluctuated. Repeat : RUQ sonogram was of very poor quality. *Again, MRCP cannot be done because of the patient's implantable neurostimulator. 07/23/17: 10:50 p.m.- ABL nc- 7.25/52/90/94%, HCO3 23, CO HB 1.7. 07/24/17: 1:35 a.m.- AB% FiO2 (BiPAP 18/, RR 22)- 7.28/51/87/94%, HCO3 23, CO HB 1.0. 07/24/17: 6:33 a.m.-AB% FiO2 (BiPAP 18/12, RR 26)- 7.28/88/101/95%,HCO3 22,CO HB 1.5. 07/23/17: WBC 4.4 (79S/4B/11L/6M/1 NRBC), H/H 8.4/25.7, MCV 93.3, RDW 17.1, PLT 201, BUN/Cr 59/6.1, GFR 9, Na 140, K 5.1, HCO3 24, AG 18, albumin 3.5, globulin 3.1, TBil 7.8, DBil 6.9, alk phos 425, AST 85, ALT 101, NH3 35. *As of 07/24/17, 152/84, P 94, R 18, T 98.2, without temperature spike. He was now mentating on BiPAP and A & O x 3. He had no symptoms referable to the GI tract or liver, and was just yellow. He had no pruritus, abdominal pain, nausea , vomiting, diarrhea, overt GI bleeding, melena, fevers, chills, recurrent syncope, or confusion. The patient is due for HD today, as his respiratory status allows. IV Solu-Medrol 40 mg Q12h had been added by the ICU/pulmonary team 07/23/17. He had no CP, but remained SOB, with a dry cough. *Tamiflu was completed on 07/24/17, post 5 days tx. *SUGGEST: *Renal diet as tolerated. Implantable neurostimulator is incompatible with MRCP, & risk:benefit ratio not insignificant for ERCP/EUS, the latter of which is not available here (no dilated ducts on 07/19/17: CT/sono; LFTs declining- ? if systemic in nature, from influenza A), vs. intrinsic liver issue, which would require liver bx. *At present, the patient's respiratory status is too unstable for any of the above modalities, and would consider transferring back patient to ICU, on BiPAP, for HD. Await 07/19/17: viral cultures. *Continue to hold Atorvastatin for now. HD & EPO (+/- IV Fe), per renal. Serial LFTs, INR, & CBC. *Tamiflu 30 mg after HD x 5d (dosing per renal), completed 07/24/17. Check Ca 19-9 (r/o cholangioCa and/or pancreatic Ca vs. ampullary lesuion, with painless jaundice; CT was w/o IV cont) *Consider checking EBV/CMV/mono spot (but would expect more of a transaminitis with this). *Consider additional serologies (i.e.- DORA, AMA, etc.), but probably low yield. 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 Follow-up CBC, but no plans for inpatient EGD, unless the patient actively bleeds. T&C 2u PRBC. Keep Hgb > 8 (hx ASHD). Empiric PPI. If anemia worsens, consider holding ASA 81 mg daily, if okay with cardiology. Outpt PillCam, as patient allows. *Avoid NSAIDS. DVT prophylaxis with mechanical ALPS. Keep Tylenol to < 2g daily. Avoid hepatotoxins. By dates, one could consider a repeat colonoscopy in 12/2017, 3 years after his last study, in view of his hx colonic TA/SSP, personal hx colon Ca, & +FHx colon Ca. However, he will be 88 y/o then, & I don' t feel this would be warranted by the risk:benefit ratio. Further GI recommendations to follow, depending on clinical course. The above was again discussed with the medical house staff, the patient, & with the patient's , Andrea, at the bedside, in great detail. Problem List: 1. Elevated LFTs 2. Influenza A 3. Syncope 4. Jaundice 5. Cholelithiasis 6. Hepatic cyst 7. Iron (Fe) deficiency anemia 8. Diverticulosis of colon 9. History of colon cancer 10. Positive occult stool blood test 11. Family history of colon cancer in mother Subjective Subjective: 07/22/17: XRY-PORTABLE CHEST XRAY- Persistent marked elevation of the left hemidiaphragm with slight increased linear atelectasis at the left base and minimal atelectasis at the right base. No evidence of pulmonary edema. 07/22/17: US-LIMITED ABDOMEN- Suboptimal evaluation due to patient's body habitus. GB. CBD, & liver poorly visualized. Questionable subtle dilated IHD left lobe. Known stable cystic lesion inferior aspect of right lobe, dating back to at least 09/26/15. Alternative imaging modality such as MRCP may be considered for further full detailed evaluation, if clinically appropriate. DICTATED BY: Sunil Hood MD [As previously stated in my initial GI consult of 07/19/17, the patient *can't have MRCP due to implantable neurostimulator]. 07/23/17: XRY-PORTABLE CHEST XRAY- No significant change from 07/22/2017. Redemonstrated left hemidiaphragm elevation and suspected bibasilar atelectasis. *Weekend events & multiple notes noted. The patient was transferred to General Medicine on the ICU, as per transfer note of 07/22/17. The patient's major issues remain primarily related to his influenza and CO2 retention, with a smaller component of hypoxia. He was placed on BiPAP. He was lethargic the evening of 07/23/17, which improved after BiPAP. His LFTs had fluctuated. Repeat : RUQ sonogram was of very poor quality. *Again, MRCP cannot be done because of the patient's implantable neurostimulator. 07/23/17: 10:50 p.m.- ABL nc- 7.25/52/90/94%, HCO3 23, CO HB 1.7. 07/24/17: 1:35 a.m.- AB% FiO2 (BiPAP 18/12, RR 22)- 7.28/51/87/94%, HCO3 23, CO HB 1.0. 07/24/17: 6:33 a.m.-AB% FiO2 (BiPAP 18/12, RR 26)- 7.28/88/101/95%,HCO3 22,CO HB 1.5. 07/23/17: WBC 4.4 (79S/4B/11L/6M/1 NRBC), H/H 8.4/25.7, MCV 93.3, RDW 17.1, PLT 201, BUN/Cr 59/6.1, GFR 9, Na 140, K 5.1, HCO3 24, AG 18, albumin 3.5, globulin 3.1, TBil 7.8, DBil 6.9, alk phos 425, AST 85, ALT 101, NH3 35. *As of 07/24/17, 152/84, P 94, R 18, T 98.2, without temperature spike. He was now mentating on BiPAP and A & O x 3. He had no symptoms referable to the GI tract or liver, and was just yellow. He had no pruritus, abdominal pain, nausea , vomiting, diarrhea, overt GI bleeding, melena, fevers, chills, recurrent syncope, or confusion. The patient is due for HD today, as his respiratory status allows. IV Solu-Medrol 40 mg Q12h had been added by the ICU/pulmonary team 07/23/17. He had no CP, but remained SOB, with a dry cough. *Tamiflu was completed on 07/24/17, post 5 days tx. Review of Systems: Full 14 point ROS otherwise N/C, & as per HPI. Review of Systems Constitutional: Reports: malaise & weakness Denies: chills, diaphoresis, fever, unexplained weight loss. EENTM: Reports:chronic hearing changes. Denies: no symptoms (nasal congestion), blurred vision, double vision, visual changes, eye pain, eye drainage, eye tearing, icterus, ear discharge, ear pain, ear redness, nasal congestion, epistaxis, nasal pain, throat pain, throat swelling, mouth pain, tooth pain. Cardiovascular: Reports: peripheral edema (trace), syncope-> resolved. Denies: chest pain, edema, orthopena, palpitations. Respiratory: Reports: cough (brown sputum-> now dry), sputum production< SOB-> BiPAP. Denies: hemoptysis, orthopnea, stridor, wheezing. GI: Reports: melena (? dark stool- *resolved). Denies: abdominal pain, bloating, constipation, diarrhea, distention, bowel incontinence, nausea, bloody stool, changes in stool, vomiting, steatorrhea. Genitourinary: Denies: discharge, dysuria, frequency, hematuria, hesitation, nocturia, pain, urgency. Musculoskeletal: Reports: back pain/left lat chest wall (chronic post zoster), joint pain (DJD). Denies: gout, joint swelling, muscle pain, muscle stiffness, neck pain. Skin: Reports: jaundice. Denies: cysts, change in skin color, change in hair/nails, dryness, erythema, lesions, lymphangitis, lumps, moles, rash. Neurological/Psychological: Reports: neuropathy & hx falls Denies: anxiety, ataxia, cognitive dysfunction, confusion, depressed, dementia, emotional problems, headache, numbness, paresthesia, pre-existing deficit, petit mal seizures, tingling, tremors, tonic-clonic seizures, unable to move lower ext , unable to move upper ext, weakness. Hematologic/Endocrine: Denies: bruising, bleeding, polyuria, polydipsia. Immunologic/Allergic: Denies: splenectomy, HIV/AIDS, lymphadenopathy. All Other Systems: Reviewed and Negative Objective Vital Signs and I&Os Vital Signs Date Time Temp Pulse Resp B/P B/P Pulse O2 O2 Flow FiO2 Mean Ox Delivery Rate 07/24 0631 98.2 94 18 152/84 96 07/24 0620 94 96 07/24 0511 93 97 07/24 0216 94 93 07/24 0140 97 93 07/24 0010 96 152/76 07/24 0000 BIPAP 07/23 2245 93 94 07/23 2156 97.1 99 20 170/84 94 Nasal 4.0L Cannula 07/23 1930 101 18 160/80 92 07/23 1812 100 152/80 07/23 1712 90 Nasal 4.0L Cannula 07/23 1600 94 Nasal 4.0L Cannula 07/23 1516 97.7 101 20 160/80 93 Nasal Cannula 07/23 0924 95 158/80 07/23 0800 Nasal 4.0L Cannula 07/23 0751 92 Nasal 4.0L Cannula Intake & Output 07/24 1600 07/24 0400 07/23 1600 07/23 0400 07/22 1600 07/22 0400 Intake Total 983 414 6954 615 60 120 Output Total 300 200 100 120 Balance 848 516 1591 415 -40 0 Intake, IV 20 15 0 0 Intake, Oral 642 306 4997 600 60 120 Number 0 2 1 0 0 Bowel Movements Output, Urine 300 200 100 120 Patient 248 lb 240 lb 239 lb Weight Weight Bed scale Bed scale Measurement Method Physical Exam: Well-developed, well-nourished, chronically ill appearing, obese male in mild distress. Sclera: slightly less icteric. Conjunctiva slightly pale. Oropharynx clear. Poor dentition. There is no adenopathy, thyromegaly, or JVD. No peripheral stigmata of inflammatory bowel disease or chronic liver disease on exam. No spiders on the anterior chest wall. No gynecomastia. No CVA tenderness. No spine tenderness. Dextroscoliosis of mid-L spine. Tender left lateral chest wall (post-herpetic neuralgia), without gross zoster. Lungs: clear to A&P, with slight decreased BS at the left base > right base. Heart exam: regular rate rhythm S1 and S2, with I/ systolic murmur. s/p CABG. Abdominal exam: normal bowel sounds, obese, soft belly, nontender, without guarding or rebound. Small B/L IH, otherwise, no mass. No organomegaly. Negative Mccauley sign. No fluid shift. No pulsatile mass. No epigastric bruit. Digital rectal exam done by myself 07/19/17: Dark brown stool (on iron), trace OB-positive, without mass. Smooth enlarged prostate. No nodules. No external hemorrhoids. No fissure. No bright red blood. Extremities: without cyanosis or clubbing. Trace pedal edema B/L. LUE AVF, with + thrill, + bruit. Positive DJD. No palpable cords. No palmar erythema. No Dupuytren's conttractures. Distal pulses 1+ bilaterally. DTRs 1+ bilaterally. Alert and oriented x 3. Less lethargic post BiPAP. [place]. Right handed. Motor 4/5 B/L. CN II-XII intact. Scant tremor. No asterixis. Current Medications: Current Medications Sig/Tiffanie Start time Last Medication Dose Route Stop Time Status Admin Albuterol Sulfate 3 ML EVERY 4 HRS/AWAKE 07/22 1200 AC 07/24 INH 0743 Amlodipine Besylate 2.5 MG ONCE ONE 07/23 1700 CAN PO 07/23 1701 Amlodipine Besylate 10 MG DAILY 07/22 1117 AC 07/23 PO 0924 Aspirin 81 MG DAILY 07/20 1000 AC 07/23 PO 0924 Cholecalciferol 1,000 IU DAILY 07/20 1000 AC 07/23 PO 0924 Docusate Sodium 100 MG BID 07/22 1115 AC 07/23 PO 2128 Duloxetine HCl 30 MG DAILY 07/22 1116 AC 07/23 PO 0924 Epoetin Earnest 2,000 UNIT TUES THURS SAT 07/20 1424 AC 07/20 IV 1716 Gabapentin 300 MG QPM 07/20 2200 AC 07/23 PO 2128 Labetalol HCl 100 MG ONCE ONE 07/23 1715 DC 07/23 PO 07/23 1716 1812 Levothyroxine Sodium 0.05 MG DAILY 07/20 1000 AC 07/23 PO 0924 Lidocaine 2 PAT Q24H 07/21 1630 AC 07/23 EXT 1639 Lidocaine 1 ANI DAILY NEEDED PRN 07/20 1015 AC TOP Lidocaine/Prilocaine 1 ANI DAILY PRN 07/20 1315 AC 07/21 TOP 0603 Methylprednisolone 40 MG Q12 07/23 2200 AC 07/23 IV 2127 Methylprednisolone 40 MG Q12 07/22 2200 DC 07/23 IV 0924 Oseltamivir Phosphate 30 MG 0 07/20 0001 DC 07/23 PO 07/24 0000 2128 Pantoprazole Sodium 40 MG DAILY 07/20 1000 AC 07/23 IV 0924 Polyethylene Glycol 17 GM DAILY AC 07/22 1118 AC 07/23 PO 0814 Prednisone 40 MG DAILY 07/23 1000 DC PO 07/26 1001 Senna 187 MG DAILY 07/22 1115 AC 07/23 PO 0924 Sevelamer Carbonate 800 MG WM 07/20 0800 AC 07/23 PO 1638 Vitamin E 400 IU DAILY 07/20 1000 AC 07/23 PO 0924 Results Pertinent Lab Results: Laboratory Tests 07/24 07/24 07/23 07/23 0615 0135 2618 3283 Blood Gas pH (7.35 - 7.45 PH) 7.28 *L 7.28 *L 7.25 *L pCO2 (35 - 45 TORR) 48 H 51 H 52 H pO2 (80 - 100 TORR) 101 H 87 90 HCO3 (21 - 28 MEQ/L) 22 23 23 ABG O2 Sat (Measured) (>96.0 %) 95.0 L 94.0 L 94.0 L P-50 (Temp Corrected) Y N Y Carboxyhemoglobin (1.5 - 5.0 %) 1.5 1.0 L 1.7 O2 Concentration % 35% 35% 4L Temperature (97.0 - 100.0 FARH) 98.2 98.6 97.1 Respiration Rate (BPM) 26 22 O2 Delivery Method VISION VISION-FFM NC Vent Mode ST ST Expiratory Pressure (CM H2O P) 6 6 Inspiratory Pressure (CM H2O P) 18 18 Chemistry Ammonia (9 - 30 umol/L) 35 H Miscellaneous Phlebotomy Draw Site LEFT RADIAL LEFT RADIAL RIGHT RADIAL 07/23 07/22 0520 0436 Chemistry Sodium (137 - 145 mmol/L) 140 142 Potassium (3.5 - 5.1 mmol/L) 5.1 4.1 Chloride (98 - 107 mmol/L) 98 101 Carbon Dioxide (22 - 30 mmol/L) 24 24 Anion Gap (5 - 16) 18 H 17 H BUN (9 - 20 mg/dL) 59 H 38 H Creatinine (0.7 - 1.2 mg/dL) 6.1 *H 4.2 H Estimated GFR (>60 ml/min) 9 L 14 L BUN/Creatinine Ratio (7 - 25 %) 9.7 9.0 Total Bilirubin (0.2 - 1.3 mg/dL) 7.8 H 11.4 H Direct Bilirubin (< 0.4 mg/dL) 6.9 H 10.3 H AST (17 - 59 U/L) 85 H 141 H ALT (21 - 72 U/L) 101 H 108 H Alkaline Phosphatase (< 127 U/L) 425 H 476 H Total Protein (6.3 - 8.2 g/dL) 6.4 6.1 L Albumin (3.5 - 5.0 g/dL) 3.5 3.3 L Hematology CBC w Diff MAN DIFF ORDERED NO MAN DIFF REQ WBC (4.8 - 10.8 /CUMM) 4.4 L 5.2 RBC (4.70 - 6.10 /CUMM) 2.75 L 2.80 L Hgb (14.0 - 18.0 G/DL) 8.4 L 8.6 L Hct (42 - 52 %) 25.7 L 26.0 L MCV (80.0 - 94.0 FL) 93.3 93.0 MCH (27.0 - 31.0 PG) 30.5 30.8 RDW (11.5 - 14.5 %) 17.1 H 16.6 H Plt Count (130 - 400 /CUMM) 201 186 MPV (7.4 - 10.4 FL) 8.4 8.4 Gran % (42.2 - 75.2 %) 92.1 H 75.0 Lymphocytes % (20.5 - 51.1 %) 5.5 L 12.3 L Monocytes % (1.7 - 9.3 %) 2.4 10.8 H Eosinophils % (0 - 5 %) 0 1.9 Basophils % (0.0 - 2.0 %) 0 0 Absolute Granulocytes (1.4 - 6.5 /CUMM) 4.1 3.9 Segmented Neutrophils (42.2 - 75.2 %) 79 H Band Neutrophils (0.0 - 5.0 %) 4 Absolute Lymphocytes (1.2 - 3.4 /CUMM) 0.2 L 0.6 L Lymphocytes (20.5 - 51.1 %) 11 L Monocytes (1.7 - 9.3 %) 6 Absolute Monocytes (0.10 - 0.60 /CUMM) 0.1 0.6 Absolute Eosinophils (0.0 - 0.7 /CUMM) 0 0.1 Absolute Basophils (0.0 - 0.2 /CUMM) 0 0 Nucleated RBCs (0.0 - 0.0 /100WBC) 1 H Platelet Estimate (ADEQUATE) ADEQUATE Hypochromic-Microcytic 2+ Anisocytosis 1+ PUBS MCHC (33.0 - 37.0 G/DL) 32.7 L 33.2 Imaging/Other Studies: 07/19/17: EKG- NSR @ 76, 1st degree AVB, GA .261, normal axis (V3 missing), NSST flattening. 07/19/17: XRY-PORTABLE CHEST XRAY- No definite evidence of pulmonary edema at this time. Elevated left hemidiaphragm, chronic. Mediastinum is difficult to assess with this technique. 07/19/17: CT CHEST, ABDOMEN AND PELVIS WITHOUT CONTRAST- 1. Asymmetric elevation of left diaphragm compared to right. Atelectasis at left lung base. No acute change of the chest. 2. Stable cystic lesion inferior right lobe of liver. No suspicious liver lesion. No ascites. 3. Cholelithiasis without acute change of gallbladder wall. No dilated ducts. 4. Atrophic right kidney. Bilateral renal cysts. No acute abnormality of kidneys. 5. Diverticulosis of colon without acute change of bowel. Status post prior surgical anastomosis at sigmoid colon intact. 6. Stable left adrenal lesion. 7. Small B/L IH. 8. DJD. Dextroscoliosis mid-L spine. 07/19/17: RUQ ABDOMINAL ULTRASOUND (LIMITED)- Liver of mildly heterogeneous echogenicity. No intrahepatic biliary ductal dilation. CBD 4 mm. Old 4.8 cm cyst within the right lobe with peripheral calcification. Cholelithiasis without evidence of cholecystitis. 07/19/17: CT HEAD WO IV CONTRAST- No evidence for acute intracranial injury. Age-appropriate appearance of the brain. 07/22/17: XRY-PORTABLE CHEST XRAY- Persistent marked elevation of the left hemidiaphragm with slight increased linear atelectasis at the left base and minimal atelectasis at the right base. No evidence of pulmonary edema. 07/22/17: US-LIMITED ABDOMEN- Suboptimal evaluation due to patient's body habitus. GB. CBD, & liver poorly visualized. Questionable subtle dilated IHD left lobe. Known stable cystic lesion inferior aspect of right lobe, dating back to at least 09/26/15. Alternative imaging modality such as MRCP may be considered for further full detailed evaluation, if clinically appropriate. DICTATED BY: Sana BAIN,Sunil [As previously stated in my initial GI consult of 07/19/17, the patient *can't have MRCP due to implantable neurostimulator]. 07/23/17: XRY-PORTABLE CHEST XRAY- No significant change from 07/22/2017. Redemonstrated left hemidiaphragm elevation and suspected bibasilar atelectasis.
--- NOTE | 2017-07-24 07:52 | PN- Housestaff ---
Evelyn Venegas 07/24/17 0752: Subjective Follow-up For: Flu Cholestasis Syncopal episode End-stage renal disease on dialysis Complaints: no complaints Subjective: Patient was seen and examined this morning. He was on BiPAP initially given his poor respiratory status and confusion overnight. Multiple ABGs were done which showed continuous acidosis which is most likely metabolic and would need hemodialysis today. I spoke with Dr. Currie as well as Dr. Zepeda and he is scheduled for hemodialysis later today. Patient was taken off of BiPAP and saturating fine on nasal cannula oxygen at the moment. He denied any chest pain , abdominal pain and is able to answer my questions appropriately. Review of Systems Constitutional: Denies: diaphoresis, fever. Cardiovascular: Denies: chest pain, edema, orthopena. Respiratory: Reports: short of breath. Gastrointestinal: Denies: constipation, distention. Genitourinary: Denies: dysuria, frequency. Musculoskeletal: Denies: joint pain, joint swelling. Objective Last 24 Hrs of Vital Signs/I&O Vital Signs Date Time Temp Pulse Resp B/P B/P Pulse O2 O2 Flow FiO2 Mean Ox Delivery Rate 07/24 0912 98.0 90 22 146/78 93 Nasal 4.0L Cannula 07/24 0800 94 BIPAP 35% 07/24 0759 22 94 BIPAP 35% 07/24 0748 91 94 07/24 0631 98.2 94 18 152/84 96 07/24 0620 94 96 07/24 0511 93 97 07/24 0216 94 93 07/24 0140 97 93 07/24 0010 96 152/76 07/24 0000 BIPAP 07/23 2245 93 94 07/23 2156 97.1 99 20 170/84 94 Nasal 4.0L Cannula 07/23 1930 101 18 160/80 92 07/23 1812 100 152/80 07/23 1712 90 Nasal 4.0L Cannula 07/23 1600 94 Nasal 4.0L Cannula 07/23 1516 97.7 101 20 160/80 93 Nasal Cannula Intake & Output 07/24 1600 07/24 0800 07/24 0000 Intake Total 240 920 Output Total 300 Balance 240 620 Intake, IV 20 Intake, Oral 240 900 Number 0 Bowel Movements Output, Urine 300 Patient 248 lb Weight Physical Exam General Appearance: Alert, Cooperative, Mild Distress Cardiovascular: Regular Rate, Normal S1, Normal S2, No Murmurs Lungs: Normal Air Movement Abdomen: Normal Bowel Sounds, Soft, No Tenderness Current Medications: Current Medications Sig/Tiffanie Start time Last Medication Dose Route Stop Time Status Admin Albuterol Sulfate 3 ML EVERY 4 HRS/AWAKE 07/22 1200 AC 07/24 INH 1140 Amlodipine Besylate 2.5 MG ONCE ONE 07/23 1700 CAN PO 07/23 1701 Amlodipine Besylate 10 MG DAILY 07/22 1117 AC 07/23 PO 0924 Aspirin 81 MG DAILY 07/20 1000 AC 07/23 PO 0924 Cholecalciferol 1,000 IU DAILY 07/20 1000 AC 07/23 PO 0924 Docusate Sodium 100 MG BID 07/22 1115 AC 07/23 PO 2128 Duloxetine HCl 30 MG DAILY 07/22 1116 AC 07/23 PO 0924 Epoetin Earnest 2,000 UNIT TUES THURS SAT 07/20 1424 AC 07/20 IV 1716 Gabapentin 300 MG QPM 07/20 2200 AC 07/23 PO 2128 Labetalol HCl 100 MG ONCE ONE 07/23 1715 DC 07/23 PO 07/23 1716 1812 Levothyroxine Sodium 0.05 MG DAILY 07/25 0600 AC PO Levothyroxine Sodium 0.05 MG DAILY 07/20 1000 DC 07/24 PO 0932 Lidocaine 2 PAT Q24H 07/21 1630 AC 07/23 EXT 1639 Lidocaine 1 ANI DAILY NEEDED PRN 07/20 1015 AC TOP Lidocaine/Prilocaine 1 ANI DAILY PRN 07/20 1315 AC 07/24 TOP 1213 Methylprednisolone 40 MG Q8 07/24 1400 AC IV Methylprednisolone 40 MG Q12 07/23 2200 DC 07/23 IV 2127 Oseltamivir Phosphate 30 MG 2200 07/20 0001 DC 07/23 PO 07/24 0000 2128 Pantoprazole Sodium 40 MG DAILY 07/20 1000 AC 07/24 IV 0932 Polyethylene Glycol 17 GM DAILY AC 07/22 1118 AC 07/23 PO 0814 Senna 187 MG DAILY 07/22 1115 AC 07/23 PO 0924 Sevelamer Carbonate 800 MG WM 07/20 0800 AC 07/23 PO 1638 Vitamin E 400 IU DAILY 07/20 1000 AC 07/23 PO 0924 Last 24 Hrs of Lab/Jamel Results Last 24 Hrs of Labs/Mics: Laboratory Tests 07/24/17 1056: Anion Gap 22 H, Estimated GFR 7 L, BUN/Creatinine Ratio 11.9, CBC w Diff Pending, WBC Pending, RBC Pending, Hgb Pending, Hct Pending, MCV Pending, MCH Pending, RDW Pending, Plt Count Pending, MPV Pending, Gran % Pending, Lymphocytes % Pending, Monocytes % Pending, Eosinophils % Pending, Basophils % Pending, Absolute Granulocytes Pending, Absolute Lymphocytes Pending, Absolute Monocytes Pending, Absolute Eosinophils Pending, Absolute Basophils Pending, PUBS MCHC Pending 07/24/17 0836: pH 7.28 *L, pCO2 48 H, pO2 96, HCO3 22, ABG O2 Sat (Measured) 96.0, P-50 (Temp Corrected) YES, Carboxyhemoglobin 0.9 L, O2 Concentration % 35%, Temperature 98.2, Respiration Rate 26, O2 Delivery Method BIPAP, Vent Mode ST, Expiratory Pressure 6, Inspiratory Pressure 18, Phlebotomy Draw Site RIGHT RADIAL 07/24/17 0615: pH 7.28 *L, pCO2 48 H, pO2 101 H, HCO3 22, ABG O2 Sat (Measured) 95.0 L, P-50 (Temp Corrected) Y, Carboxyhemoglobin 1.5, O2 Concentration % 35%, Temperature 98.2, Respiration Rate 26, O2 Delivery Method VISION, Vent Mode ST, Expiratory Pressure 6, Inspiratory Pressure 18, Phlebotomy Draw Site LEFT RADIAL 07/24/17 0600: CA 19-9 Antigen Pending 07/24/17 0135: pH 7.28 *L, pCO2 51 H, pO2 87, HCO3 23, ABG O2 Sat (Measured) 94.0 L, P-50 ( Temp Corrected) N, Carboxyhemoglobin 1.0 L, O2 Concentration % 35%, Temperature 98.6, Respiration Rate 22, O2 Delivery Method VISION-FFM, Vent Mode ST, Expiratory Pressure 6, Inspiratory Pressure 18, Phlebotomy Draw Site LEFT RADIAL 07/23/17 2250: pH 7.25 *L, pCO2 52 H, pO2 90, HCO3 23, ABG O2 Sat (Measured) 94.0 L, P-50 ( Temp Corrected) Y, Carboxyhemoglobin 1.7, O2 Concentration % 4L, Temperature 97.1, O2 Delivery Method NC, Phlebotomy Draw Site RIGHT RADIAL 07/23/17 2237: Ammonia 35 H Assessment/Plan Assessment: Mr Martinez has a PMHx of coronary artery disease s/p CABG, colon cancer status post resection and anastomosis, HFpEF uses nocturnal O2 as needed, moderate , ROBYN not on CPAP, chronic back pain w/ neurostimulator in place, ESRD on HD was brought in after he was found to be hypoxemic 84% while he was sitting in his chair, and subsequently had a syncopal episode likely from dehydration. He was also found to have influenza and was started on Tamiflu. Plan: 1. Influenza- He was started on oseltamivir, which will be continued with dialysis. 2. Abnormal liver chemistries- Patient was seen by gastroenterology and at this point his elevated liver enzymes are most likely cholestatic transaminitis and was because of underlying infectious histology. We will continue watching LFTs as they are trending down. We continue holding his statins as well. Patient is not a candidate for ERCP. After discussing with gastroenterology CA 199 was admitted in his labs and we will follow the results. 3. Syncope- Likely from dehydration. - Was evaluated by the dock pumper. - Echocardiogram done on 07/20 showed aortic stenosis (moderate). 3. ESRD on HD - He undergoes dialysis M/W/F - Renal dialysis diet. 4. HTN -Were held at admission - Restarted Amlodipine this morning as blood pressure is running on the high side. - Consider starting other HTN meds once stable. 5. GI bleed- - H&H stable - Monitor closely. Problem List: 1. Hepatic cyst 2. Influenza A 3. Cholelithiasis Pain Ratin Pain Location: Not applicable Pain Goal: Remain pain free Pain Plan: Tylenol Tomorrow's Labs & Rationales: CBC, basic electrolyte panel and LFTs Sofía Houston MD 07/24/17 1320: Attending MD Review Statement Attending Statement Attending MD Statement: examined this patient, discuss w/resident/PA/MAINTENANCE GROUNDMAN, agreed w/resident/PA/MAINTENANCE GROUNDMAN, reviewed EMR data (avail), discussed with nursing, discussed with case mgmt, reviewed images, amended to note Attending Assessment/Plan: Patient seen and examined, denies any complaints. THis am ABG continues to show acidosis. Pt awake, alert and talking. Denies any pain, n/v. Vital Signs Date Time Temp Pulse Resp B/P B/P Pulse O2 O2 Flow FiO2 Mean Ox Delivery Rate 07/24 0912 98.0 90 22 146/78 93 Nasal 4.0L Cannula 07/24 0800 94 BIPAP 35% 07/24 0759 22 94 BIPAP 35% 07/24 0748 91 94 07/24 0631 98.2 94 18 152/84 96 07/24 0620 94 96 07/24 0511 93 97 07/24 0216 94 93 07/24 0140 97 93 07/24 0010 96 152/76 07/24 0000 BIPAP 07/23 2245 93 94 07/23 2156 97.1 99 20 170/84 94 Nasal 4.0L Cannula 07/23 1930 101 18 160/80 92 07/23 1812 100 152/80 07/23 1712 90 Nasal 4.0L Cannula 07/23 1600 94 Nasal 4.0L Cannula 07/23 1516 97.7 101 20 160/80 93 Nasal Cannula on exam; aox3, nad. cv; s1,s2, rrr resp; decreased bs overall. abd; soft, nt, bs+ ext; no edema. Laboratory Tests 07/24 07/24 07/24 07/24 1056 0836 0615 0600 Blood Gas pH (7.35 - 7.45 PH) 7.28 *L 7.28 *L pCO2 (35 - 45 TORR) 48 H 48 H pO2 (80 - 100 TORR) 96 101 H HCO3 (21 - 28 MEQ/L) 22 22 ABG O2 Sat (Measured) (>96.0 %) 96.0 95.0 L P-50 (Temp Corrected) YES Y Carboxyhemoglobin (1.5 - 5.0 %) 0.9 L 1.5 O2 Concentration % 35% 35% Temperature (97.0 - 100.0 FARH) 98.2 98.2 Respiration Rate (BPM) 26 26 O2 Delivery Method BIPAP VISION Vent Mode ST ST Expiratory Pressure (CM H2O P) 6 6 Inspiratory Pressure (CM H2O P) 18 18 Chemistry Sodium (137 - 145 mmol/L) 140 Potassium (3.5 - 5.1 mmol/L) 5.1 Chloride (98 - 107 mmol/L) 98 Carbon Dioxide (22 - 30 mmol/L) 20 L Anion Gap (5 - 16) 22 H BUN (9 - 20 mg/dL) 87 H Creatinine (0.7 - 1.2 mg/dL) 7.3 *H Estimated GFR (>60 ml/min) 7 L BUN/Creatinine Ratio (7 - 25 %) 11.9 CA 19-9 Antigen Pending Hematology CBC w Diff Pending WBC Pending RBC Pending Hgb Pending Hct Pending MCV Pending MCH Pending RDW Pending Plt Count Pending MPV Pending Gran % Pending Lymphocytes % Pending Monocytes % Pending Eosinophils % Pending Basophils % Pending Absolute Granulocytes Pending Absolute Lymphocytes Pending Absolute Monocytes Pending Absolute Eosinophils Pending Absolute Basophils Pending PUBS MCHC Pending Miscellaneous Phlebotomy Draw Site RIGHT RADIAL LEFT RADIAL 07/24 07/23 07/23 0135 2250 2237 Blood Gas pH (7.35 - 7.45 PH) 7.28 *L 7.25 *L pCO2 (35 - 45 TORR) 51 H 52 H pO2 (80 - 100 TORR) 87 90 HCO3 (21 - 28 MEQ/L) 23 23 ABG O2 Sat (Measured) (>96.0 %) 94.0 L 94.0 L P-50 (Temp Corrected) N Y Carboxyhemoglobin (1.5 - 5.0 %) 1.0 L 1.7 O2 Concentration % 35% 4L Temperature (97.0 - 100.0 FARH) 98.6 97.1 Respiration Rate (BPM) 22 O2 Delivery Method VISION-FFM NC Vent Mode ST Expiratory Pressure (CM H2O P) 6 Inspiratory Pressure (CM H2O P) 18 Chemistry Ammonia (9 - 30 umol/L) 35 H Miscellaneous Phlebotomy Draw Site LEFT RADIAL RIGHT RADIAL A/P; 87 y/o M with pmh sig for CKD on hemodialysis Monday, Monday (he missed Hemodialysis session today), aortic stenosis, heart failure with preserved ejection fraction, coronary artery disease status post CABG 5, pulmonary hypertension, hyperlipidemia, hypertension, hypothyroidism, osteoarthritis, colonic cancer status post resection and anastomosis, CH hypercarbic resp failure, and obstructive sleep apnea on nocturnal oxygen supplementation admitted with abnl LFTs, + Influenza. Currently on IV steroids and folllowed by Pulm. Patient on Tamiflu. Will taper steroids per pulm. Needs HD today, Nephro aware. Continue other current meds, TRC nebs. Check CA19-9 per GI recs. DVT px; ALPS. PT eval.
[2017-07-24 09:12] VITALS: BP 146/78
--- NOTE | 2017-07-24 10:42 | PN- Pulmonary ---
Subjective HPI/Critical Care Issues: Patient seen and examined this morning. He was changed from BiPAP to nasal cannula overnight. He is awaiting dialysis this morning. His ABG represents mostly metabolic acidosis Objective Current Medications: Current Medications Sig/Tiffanie Start time Last Medication Dose Route Stop Time Status Admin Albuterol Sulfate 3 ML EVERY 4 HRS/AWAKE 07/22 1200 AC 07/24 INH 0743 Amlodipine Besylate 2.5 MG ONCE ONE 07/23 1700 CAN PO 07/23 1701 Amlodipine Besylate 10 MG DAILY 07/22 1117 AC 07/23 PO 0924 Aspirin 81 MG DAILY 07/20 1000 AC 07/23 PO 0924 Cholecalciferol 1,000 IU DAILY 07/20 1000 AC 07/23 PO 0924 Docusate Sodium 100 MG BID 07/22 1115 AC 07/23 PO 2128 Duloxetine HCl 30 MG DAILY 07/22 1116 AC 07/23 PO 0924 Epoetin Earnest 2,000 UNIT TUES THURS SAT 07/20 1424 AC 07/20 IV 1716 Gabapentin 300 MG QPM 07/20 2200 AC 07/23 PO 2128 Labetalol HCl 100 MG ONCE ONE 07/23 1715 DC 07/23 PO 07/23 1716 1812 Levothyroxine Sodium 0.05 MG DAILY 07/25 0600 AC PO Levothyroxine Sodium 0.05 MG DAILY 07/20 1000 DC 07/24 PO 0932 Lidocaine 2 PAT Q24H 07/21 1630 AC 07/23 EXT 1639 Lidocaine 1 ANI DAILY NEEDED PRN 07/20 1015 AC TOP Lidocaine/Prilocaine 1 ANI DAILY PRN 07/20 1315 AC 07/21 TOP 0603 Methylprednisolone 40 MG Q8 07/24 1400 AC IV Methylprednisolone 40 MG Q12 07/23 2200 DC 07/23 IV 2127 Oseltamivir Phosphate 30 MG 2200 07/20 0001 DC 07/23 PO 07/24 0000 2128 Pantoprazole Sodium 40 MG DAILY 07/20 1000 AC 07/24 IV 0932 Polyethylene Glycol 17 GM DAILY AC 07/22 1118 AC 07/23 PO 0814 Prednisone 40 MG DAILY 07/23 1000 DC PO 07/26 1001 Senna 187 MG DAILY 07/22 1115 AC 07/23 PO 0924 Sevelamer Carbonate 800 MG WM 07/20 0800 AC 07/23 PO 1638 Vitamin E 400 IU DAILY 01/18 1000 AC 07/23 PO 0924 Vital Signs & I&O Last 24 Hrs of Vitals and I&O: Vital Signs Date Time Temp Pulse Resp B/P B/P Pulse O2 O2 Flow FiO2 Mean Ox Delivery Rate 07/24 0912 98.0 90 22 146/78 93 Nasal 4.0L Cannula 07/24 0800 94 BIPAP 35% 07/24 0759 22 94 BIPAP 35% 07/24 0748 91 94 07/24 0631 98.2 94 18 152/84 96 07/24 0620 94 96 07/24 0511 93 97 07/24 0216 94 93 07/24 0140 97 93 07/24 0010 96 152/76 07/24 0000 BIPAP 07/23 2245 93 94 07/23 2156 97.1 99 20 170/84 94 Nasal 4.0L Cannula 07/23 1930 101 18 160/80 92 07/23 1812 100 152/80 07/23 1712 90 Nasal 4.0L Cannula 07/23 1600 94 Nasal 4.0L Cannula 07/23 1516 97.7 101 20 160/80 93 Nasal Cannula Intake & Output 07/24 1600 07/24 0800 07/24 0000 Intake Total 240 920 Output Total 300 Balance 240 620 Intake, IV 20 Intake, Oral 240 900 Number 0 Bowel Movements Output, Urine 300 Patient 248 lb Weight Exam Other Physical Findings: Generally - Awake, alert Head and neck - normocephalic, atraumatic, EOMI grossly intact Cardiovascular - S1, S2 Lungs -bilateral rhonchi that are scattered Abdomen - Bowel sounds positive, soft, non-tender Extremities - without edema Results Last 24 Hrs of Lab Results: Laboratory Tests 07/24/17 0836: pH 7.28 *L, pCO2 48 H, pO2 96, HCO3 22, ABG O2 Sat (Measured) 96.0, P-50 (Temp Corrected) YES, Carboxyhemoglobin 0.9 L, O2 Concentration % 35%, Temperature 98.2, Respiration Rate 26, O2 Delivery Method BIPAP, Vent Mode ST, Expiratory Pressure 6, Inspiratory Pressure 18, Phlebotomy Draw Site RIGHT RADIAL 07/24/17 0615: pH 7.28 *L, pCO2 48 H, pO2 101 H, HCO3 22, ABG O2 Sat (Measured) 95.0 L, P-50 (Temp Corrected) Y, Carboxyhemoglobin 1.5, O2 Concentration % 35%, Temperature 98.2, Respiration Rate 26, O2 Delivery Method VISION, Vent Mode ST, Expiratory Pressure 6, Inspiratory Pressure 18, Phlebotomy Draw Site LEFT RADIAL 07/24/17 0600: CA 19-9 Antigen Pending 07/24/17 0135: pH 7.28 *L, pCO2 51 H, pO2 87, HCO3 23, ABG O2 Sat (Measured) 94.0 L, P-50 ( Temp Corrected) N, Carboxyhemoglobin 1.0 L, O2 Concentration % 35%, Temperature 98.6, Respiration Rate 22, O2 Delivery Method VISION-FFM, Vent Mode ST, Expiratory Pressure 6, Inspiratory Pressure 18, Phlebotomy Draw Site LEFT RADIAL 07/23/17 2250: pH 7.25 *L, pCO2 52 H, pO2 90, HCO3 23, ABG O2 Sat (Measured) 94.0 L, P-50 ( Temp Corrected) Y, Carboxyhemoglobin 1.7, O2 Concentration % 4L, Temperature 97.1, O2 Delivery Method NC, Phlebotomy Draw Site RIGHT RADIAL 07/23/17 2237: Ammonia 35 H Impression/Plan Impression/Plan Impression/Plan: Impressoin 87 year old man * elevated lfts, jaundice * dyapnea - influenza - possible bronchiolitis/infectious reactive airways * nasra declines cpap therapy * esrd on hd * chronic hypoxemic and hypercarbic respiratory failure Plan -Continue IV Solu-Medrol 40 mg every 8 -Patient will require dialysis please discuss with nephrology -TRC/Nebs - goal spo2 >90% -f/u gastroenterology recs, f/u and trend lfts, d/w GI what imaging modality if any would be recommended -f/u cardiology recs -tamiflu course for influenza A -HD per nephrology DVT prophylaxis at all times
[2017-07-24 12:16] LABS: ABSOLUTE BASOPHIL COUNT 0 /CUMM (0.0-0.2); ABSOLUTE EOSINOPHIL COUNT 0 /CUMM (0.0-0.7); ABSOLUTE GRANULOCYTE CT 6.9 /CUMM (1.4-6.5); ABSOLUTE LYMPH COUNT 0.4 /CUMM (1.2-3.4); ABSOLUTE MONOCYTE COUNT 0.6 /CUMM (0.10-0.60); BASOPHIL % 0.1 % (0.0-2.0); EOSINOPHIL % 0 % (0-5); GRANULOCYTE % 87.5 % (42.2-75.2); HEMATOCRIT 24.4 % (42-52); MEAN CORPUSCULAR HGB 30.6 PG (27.0-31.0); MEAN CORPUSCULAR HGB CONC 32.9 G/DL (33.0-37.0); MEAN PLATELET VOLUME 8.2 FL (7.4-10.4); PLATELET COUNT 235 /CUMM (130-400); RBC DISTRIBUTION WIDTH 16.6 % (11.5-14.5); RED BLOOD CELL CT 2.63 /CUMM (4.70-6.10)
[2017-07-24 12:53] LABS: WHITE BLOOD CELL COUNT 7.9 /CUMM (4.8-10.8)
--- NOTE | 2017-07-24 17:31 | PN- Nephrology ---
Assessment/Plan Assessment: 1. ESRD 2. Influenza 3. Hyperbilirubinemia - direct - appears to be improving 4. Obstructive sleep apnea with chronic hypoxemia and hypercarbia 5. Coronary artery disease Suggestion: 1. Hemodialysis today with ultrafiltration to his target weight as tolerated 2. Next hemodialysis after today for Wednesday 07/26 3. GI, Pulmonary and Cardiology following Subjective Subjective: Patient was apparently confused last night but feels relatively well and appears to be oriented this morning. No specific complaints at this time. Seen with hemodialysis which is uneventful thus far. Objective Vital Signs and I&Os Vital Signs Date Time Temp Pulse Resp B/P B/P Pulse O2 O2 Flow FiO2 Mean Ox Delivery Rate 07/24 0912 98.0 90 22 146/78 93 Nasal 4.0L Cannula 07/24 0800 94 BIPAP 35% 07/24 0759 22 94 BIPAP 35% 07/24 0748 91 94 07/24 0631 98.2 94 18 152/84 96 07/24 0620 94 96 07/24 0511 93 97 07/24 0216 94 93 07/24 0140 97 93 07/24 0010 96 152/76 07/24 0000 BIPAP 07/23 2245 93 94 07/23 2156 97.1 99 20 170/84 94 Nasal 4.0L Cannula 07/23 1930 101 18 160/80 92 07/23 1812 100 152/80 Intake & Output 07/24 1600 07/24 0400 07/23 1600 07/23 0400 07/22 1600 07/22 0400 Intake Total 426 359 8983 615 60 120 Output Total 0 300 200 100 120 Balance 338 158 6494 415 -40 0 Intake, IV 10 20 15 0 0 Intake, Oral 020 177 6528 600 60 120 Number 0 0 2 1 0 0 Bowel Movements Output, Urine 0 300 200 100 120 Patient 248 lb 240 lb 239 lb Weight Weight Bed scale Bed scale Measurement Method Physical Exam: General: Well-developed, elderly white male in NAD Skin: + Jaundice, no rash or lesions HEENT: Conjunctivae pale, sclerae icteric, mucous membranes dry Neck: Without masses or thyromegaly, no supraclavicular or cervical adenopathy Chest: Clear to P&A Heart: Regular rate and rhythm without S3 or rub Abdomen: Soft and nontender without palpable masses or organomegaly Extremities: Without cyanosis or edema Neuro: No focal findings, no asterixis or myoclonus Results Pertinent Lab Results: Laboratory Tests 07/24 07/24 1056 0836 Blood Gas pH (7.35 - 7.45 PH) 7.28 *L pCO2 (35 - 45 TORR) 48 H pO2 (80 - 100 TORR) 96 HCO3 (21 - 28 MEQ/L) 22 ABG O2 Sat (Measured) (>96.0 %) 96.0 P-50 (Temp Corrected) YES Carboxyhemoglobin (1.5 - 5.0 %) 0.9 L O2 Concentration % 35% Temperature (97.0 - 100.0 FARH) 98.2 Respiration Rate (BPM) 26 O2 Delivery Method BIPAP Vent Mode ST Expiratory Pressure (CM H2O P) 6 Inspiratory Pressure (CM H2O P) 18 Chemistry Sodium (137 - 145 mmol/L) 140 Potassium (3.5 - 5.1 mmol/L) 5.1 Chloride (98 - 107 mmol/L) 98 Carbon Dioxide (22 - 30 mmol/L) 20 L Anion Gap (5 - 16) 22 H BUN (9 - 20 mg/dL) 87 H Creatinine (0.7 - 1.2 mg/dL) 7.3 *H Estimated GFR (>60 ml/min) 7 L BUN/Creatinine Ratio (7 - 25 %) 11.9 Hematology CBC w Diff MAN DIFF ORDERED WBC (4.8 - 10.8 /CUMM) 7.9 RBC (4.70 - 6.10 /CUMM) 2.63 L Hgb (14.0 - 18.0 G/DL) 8.0 L Hct (42 - 52 %) 24.4 L MCV (80.0 - 94.0 FL) 93.0 MCH (27.0 - 31.0 PG) 30.6 RDW (11.5 - 14.5 %) 16.6 H Plt Count (130 - 400 /CUMM) 235 MPV (7.4 - 10.4 FL) 8.2 Gran % (42.2 - 75.2 %) 87.5 H Lymphocytes % (20.5 - 51.1 %) 5.1 L Monocytes % (1.7 - 9.3 %) 7.3 Eosinophils % (0 - 5 %) 0 Basophils % (0.0 - 2.0 %) 0.1 Absolute Granulocytes (1.4 - 6.5 /CUMM) 6.9 H Absolute Lymphocytes (1.2 - 3.4 /CUMM) 0.4 L Absolute Monocytes (0.10 - 0.60 /CUMM) 0.6 Absolute Eosinophils (0.0 - 0.7 /CUMM) 0 Absolute Basophils (0.0 - 0.2 /CUMM) 0 Platelet Estimate (ADEQUATE) VERIFIED BY SMEAR Polychromasia 1+ Hypochromic-Microcytic 1+ Anisocytosis 1+ Stomatocytes 1+ PUBS MCHC (33.0 - 37.0 G/DL) 32.9 L Miscellaneous Phlebotomy Draw Site RIGHT RADIAL 07/24 07/24 07/24 07/23 0615 0600 0135 2250 Blood Gas pH (7.35 - 7.45 PH) 7.28 *L 7.28 *L 7.25 *L pCO2 (35 - 45 TORR) 48 H 51 H 52 H pO2 (80 - 100 TORR) 101 H 87 90 HCO3 (21 - 28 MEQ/L) 22 23 23 ABG O2 Sat (Measured) (>96.0 %) 95.0 L 94.0 L 94.0 L P-50 (Temp Corrected) Y N Y Carboxyhemoglobin (1.5 - 5.0 %) 1.5 1.0 L 1.7 O2 Concentration % 35% 35% 4L Temperature (97.0 - 100.0 FARH) 98.2 98.6 97.1 Respiration Rate (BPM) 26 22 O2 Delivery Method VISION VISION-FFM NC Vent Mode ST ST Expiratory Pressure (CM H2O P) 6 6 Inspiratory Pressure (CM H2O P) 18 18 Chemistry CA 19-9 Antigen Pending Miscellaneous Phlebotomy Draw Site LEFT RADIAL LEFT RADIAL RIGHT RADIAL 07/23 07/23 8976 0599 Chemistry Sodium (137 - 145 mmol/L) 140 Potassium (3.5 - 5.1 mmol/L) 5.1 Chloride (98 - 107 mmol/L) 98 Carbon Dioxide (22 - 30 mmol/L) 24 Anion Gap (5 - 16) 18 H BUN (9 - 20 mg/dL) 59 H Creatinine (0.7 - 1.2 mg/dL) 6.1 *H Estimated GFR (>60 ml/min) 9 L BUN/Creatinine Ratio (7 - 25 %) 9.7 Total Bilirubin (0.2 - 1.3 mg/dL) 7.8 H Direct Bilirubin (< 0.4 mg/dL) 6.9 H AST (17 - 59 U/L) 85 H ALT (21 - 72 U/L) 101 H Alkaline Phosphatase (< 127 U/L) 425 H Ammonia (9 - 30 umol/L) 35 H Total Protein (6.3 - 8.2 g/dL) 6.4 Albumin (3.5 - 5.0 g/dL) 3.5 Hematology CBC w Diff MAN DIFF ORDERED WBC (4.8 - 10.8 /CUMM) 4.4 L RBC (4.70 - 6.10 /CUMM) 2.75 L Hgb (14.0 - 18.0 G/DL) 8.4 L Hct (42 - 52 %) 25.7 L MCV (80.0 - 94.0 FL) 93.3 MCH (27.0 - 31.0 PG) 30.5 RDW (11.5 - 14.5 %) 17.1 H Plt Count (130 - 400 /CUMM) 201 MPV (7.4 - 10.4 FL) 8.4 Gran % (42.2 - 75.2 %) 92.1 H Lymphocytes % (20.5 - 51.1 %) 5.5 L Monocytes % (1.7 - 9.3 %) 2.4 Eosinophils % (0 - 5 %) 0 Basophils % (0.0 - 2.0 %) 0 Absolute Granulocytes (1.4 - 6.5 /CUMM) 4.1 Segmented Neutrophils (42.2 - 75.2 %) 79 H Band Neutrophils (0.0 - 5.0 %) 4 Absolute Lymphocytes (1.2 - 3.4 /CUMM) 0.2 L Lymphocytes (20.5 - 51.1 %) 11 L Monocytes (1.7 - 9.3 %) 6 Absolute Monocytes (0.10 - 0.60 /CUMM) 0.1 Absolute Eosinophils (0.0 - 0.7 /CUMM) 0 Absolute Basophils (0.0 - 0.2 /CUMM) 0 Nucleated RBCs (0.0 - 0.0 /100WBC) 1 H Platelet Estimate (ADEQUATE) ADEQUATE Hypochromic-Microcytic 2+ Anisocytosis 1+ PUBS MCHC (33.0 - 37.0 G/DL) 32.7 L 07/22 0436 Chemistry Sodium (137 - 145 mmol/L) 142 Potassium (3.5 - 5.1 mmol/L) 4.1 Chloride (98 - 107 mmol/L) 101 Carbon Dioxide (22 - 30 mmol/L) 24 Anion Gap (5 - 16) 17 H BUN (9 - 20 mg/dL) 38 H Creatinine (0.7 - 1.2 mg/dL) 4.2 H Estimated GFR (>60 ml/min) 14 L BUN/Creatinine Ratio (7 - 25 %) 9.0 Total Bilirubin (0.2 - 1.3 mg/dL) 11.4 H Direct Bilirubin (< 0.4 mg/dL) 10.3 H AST (17 - 59 U/L) 141 H ALT (21 - 72 U/L) 108 H Alkaline Phosphatase (< 127 U/L) 476 H Total Protein (6.3 - 8.2 g/dL) 6.1 L Albumin (3.5 - 5.0 g/dL) 3.3 L Hematology CBC w Diff NO MAN DIFF REQ WBC (4.8 - 10.8 /CUMM) 5.2 RBC (4.70 - 6.10 /CUMM) 2.80 L Hgb (14.0 - 18.0 G/DL) 8.6 L Hct (42 - 52 %) 26.0 L MCV (80.0 - 94.0 FL) 93.0 MCH (27.0 - 31.0 PG) 30.8 RDW (11.5 - 14.5 %) 16.6 H Plt Count (130 - 400 /CUMM) 186 MPV (7.4 - 10.4 FL) 8.4 Gran % (42.2 - 75.2 %) 75.0 Lymphocytes % (20.5 - 51.1 %) 12.3 L Monocytes % (1.7 - 9.3 %) 10.8 H Eosinophils % (0 - 5 %) 1.9 Basophils % (0.0 - 2.0 %) 0 Absolute Granulocytes (1.4 - 6.5 /CUMM) 3.9 Absolute Lymphocytes (1.2 - 3.4 /CUMM) 0.6 L Absolute Monocytes (0.10 - 0.60 /CUMM) 0.6 Absolute Eosinophils (0.0 - 0.7 /CUMM) 0.1 Absolute Basophils (0.0 - 0.2 /CUMM) 0 PUBS MCHC (33.0 - 37.0 G/DL) 33.2
[2017-07-24 18:06] VITALS: BP 158/77
[2017-07-24 21:44] VITALS: BP 134/70
[2017-07-25 00:24] LABS: PT 12.5 SEC (9.4-12.5)
[2017-07-25 05:22] VITALS: BP 132/60
--- NOTE | 2017-07-25 07:37 | PN- Gastroenterology ---
See Addendum Assessment/Plan Assessment/Recommendations: 87 y/o male, full code, with numerous co-morbidities, remotely seen by myself in inpt GI consultation 10/02/15, with intermittent OB+ stool, not c/w outpt PillCam (*see below), post multiple EGD/colonoscopy/push enteroscopy, CKD & HD- dependent since spring 2016 (post LUE AVF 12/01/16), who presented to the [facility] 07/19/17, BIBA with syncope (witnessed by his , Andrea), hypoxia, urinary & fecal incontinence (no witnessed seizure), history of falls, fatigue, nasal congestion, symptoms of URI with cough productive of brown sputum, found to be yellow with elevated LFTs. He denied any fevers, chills, rashes, myalgias , or acute arthralgias (aside from DJD). He had mild diarrhea 1 day [employer], treated with Imodium. When he was incontinent, the stools were "dark" without gross BRB or hematemesis. The stools were OB positive in the ER, without fresh blood. They were later dark brown, trace OB positive, on my digital exam . Upon arrival to the [facility] 07/19/17 at 2:06 p.m., BP 92/50, P 76, R 20, T 97.5, O2 sat RA 90%, improving to 95% on 2L nc. His BP improved after IVF. He last had HD 07/17/17 & missed his HD slot 07/19/17, due to the above. He denied any nausea, vomiting, abdominal pain, early satiety, constipation, obstipation, tenesmus, or rectal bleeding. The mild diarrhea had resolved. He was on baby aspirin 81 mg daily. He denied any NSAIDs or Plavix. Regarding the dark stool, he was on iron, although apparently this was switched to IV Fe & EPO. He was not on any Pepto-Bismol. He was told he looked yellow at HD on . His GB was intact. He denied any dark urine, light stool, or pruritus. He currently denied any confusion, although he was slightly confused after the syncopal event, according to his . There was no documented head trauma or abdominal trauma. His GI ROS from above & below were otherwise negative. The patient was taking approximately 2 g of Tylenol daily. He had been off Percocet for some time. He denied any new medications or herbal medications, aside from low dose Vitamin E 400 IU daily, rxd by renal in 06/2017. He denied any additional OTC medications. He was subsequently found to have 07/19/17: *influenza type A His outpatient medication list included baby ASA, Amlodipine, Colace, Labetalol, vitamin D, isosorbide, Renvela, TORIBIO, Senokot, Colace, Atorvastatin, Vit E, Lidocaine patch, Tylenol, & Miralax. He denied any history of viral hepatitis. Apparently, he was recently started on Hep A & B vaccination series. He denied any EtOH, illicit street drugs, or IVDA. He had been transfused in the past. There was no gross hematuria, epistaxis, gum bleeding, or hemoptysis. He denied any chest pain or shortness of breath. Regarding the LFTs, there is no family history of any inherited liver disease or IBD. There is a positive family history of colon CA (pt's M- 58), & positive family history of colon adenoma (pt's dtr, Jessica). The patient's other numerous issues include prior rx narcotic-induced encephalopathy, which cleared after Narcan, chronic left chest wall pain post shingles, *chronic Fe def anemia, HTN, HLD, & ASHD post CABG 5 in 2000, WRANGELL, history of complex right-sided hepatic cysts, chronic low back pain with indwelling neurostimulator low back 05/2015, neuropathy, history of sciatica, diverticulosis coli, DJD, knee replacement, surgery, hypothyroid, carpal repair, , CHF, pulmonary HTN, ROBYN on O2-2L nc hs. 09/10/07: EGD- mild esophagitis, J-shaped stomach, H. pylori negative gastritis 10/24/07: Sigmoid resection by Dr. 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 There was no residual colon cancer found surgically, with negative lymph nodes. 09/25/07: PET- negative. 04/27/09: Colonoscopy to cecum- rectal telangiectasias of unknown etiology with clean anastomosis at 23 cm, left-sided diverticula plus removal of 2 benign tubular adenomas. 12/11/14: CEA 1.7, Fe sat 2.4%, ferritin 10.2. 12/19/14: *low IgA 78, tTG Ab- neg, DGP Ab- neg. 01/08/15: *Combined upper endoscopy to the third portion of the duodenum with biopsy, plus colonoscopy to the cecum with biopsies- normal esophageal mucosa with a minimally irregular Z-line at 40 cm, and a somewhat J-shaped stomach. Biopsy of 2 x 2 mm excrescences at the lesser curvature of the stomach- mild chronic fundic gastritis, H. pylori negative. Random biopsies of the second and third portions of the duodenum- no significant villous blunting (nothing on biopsies to suggest celiac sprue), mild chronic duodenitis, slightly nodular duodenal bulb showing Renzo gland hypertrophy and focal gastric metaplasia. Moderate left-sided diverticula, post sigmoid resection with a clean anastomosis at 23 cm, multiple sessile 5 mm polyps removed via cold biopsies, including one from the right colon showing benign tubular adenoma, two from the transverse colon showing benign sessile serrated polyp/adenoma, biopsy of the left colon unremarkable, biopsy of a small rectal polyp at 10 cm- benign hyperplastic polyp with focal sessile serrated polyp/adenoma. 05/30/15: normal LFTs, decreased ferritin 11.5, iron 24, TIBC 415, Fe sat 5.8%. 07/22/2015: normal SPEP/IPEP. 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 10/02/15: EGD to jejunum (160 cm from the incisors) with pedicolon- 1. Superficial antral erosions, without any active bleeding. 2. Superficial erosions in the duodenal bulb, without any active bleeding. 3. Clot washed clear from the post bulbar region, with normal-appearing underlying mucosa. 4. Slightly J-shaped stomach. 5. Otherwise, negative study to the jejunum. [The patient was endoscoped 3 times, with the single channel scope, the double channel scope, and the pediatric colonoscope from above, down to the jejunum, 160 cm from the incisors]. *The pt subsequently refused outpt PillCam multiple times (rule out angiodysplasias associated with CKD and/or ). The pt was most recently admitted to [facility] 10/28/16 - 11/08/16, for acute on chronic respiratory failure, multifactorial volume overload, CKD, & normocytic anemia-> EPO. 09/06/16: *HIV- neg. 09/07/16: *Hep A Ab, Hep Bs Ag, Hep B core Ab, Hep C Ab- all neg. 07/19/17: Admission labs- WBC 4.7, H/H 8.9/25.6, MCV 90.6, RDW 17.6, PLT 239, PT 14.1, INR 1.35, PTT 38, glucose 111, BUN/Cr 81/7.4, GFR 7, Na 141, K 4.9, HCO3 19, AG 21, lactate 1.1, Ca 8.2, amylase/lipase 137/353, albumin 3.4, globulin 2.7, *TBil 9.3, DBil 8.6, alk phos 354, AST 98, ALT 110, nl NH3 30, [Tylenol] < 10; Fe 45 (? no TIBC), ferritin 497, BNP 25,300, *troponin- pending, *Hep A, B, & C serologies- pending. 07/19/17: *Rapid viral influenza A/B: + influenza Type A. 07/19/17: EKG- NSR @ 76, 1st degree AVB, AZ .261, normal axis (V3 missing), NSST flattening. 07/19/17: XRY-PORTABLE CHEST XRAY- No definite evidence of pulmonary edema at this time. Elevated left hemidiaphragm, chronic. Mediastinum is difficult to assess with this technique. 07/19/17: CT CHEST, ABDOMEN AND PELVIS WITHOUT CONTRAST- 1. Asymmetric elevation of left diaphragm compared to right. Atelectasis at left lung base. No acute change of the chest. 2. Stable cystic lesion inferior right lobe of liver. No suspicious liver lesion. No ascites. 3. Cholelithiasis without acute change of gallbladder wall. No dilated ducts. 4. Atrophic right kidney. Bilateral renal cysts. No acute abnormality of kidneys. 5. Diverticulosis of colon without acute change of bowel. Status post prior surgical anastomosis at sigmoid colon intact. 6. Stable left adrenal lesion. 7. Small B/L IH. 8. DJD. Dextroscoliosis mid-L spine. 07/19/17: RUQ ABDOMINAL ULTRASOUND (LIMITED)- Liver of mildly heterogeneous echogenicity. No intrahepatic biliary ductal dilation. CBD 4 mm. Old 4.8 cm cyst within the right lobe with peripheral calcification. Cholelithiasis without evidence of cholecystitis. 07/19/17: CT HEAD WO IV CONTRAST- No evidence for acute intracranial injury. Age-appropriate appearance of the brain. Upon completion of the 07/19/17: GI consult, I felt that most likely, the patient's LFTs, which were more cholestatic > transaminitis, were most likely secondary to some systemic process, probably infectious in nature. The 07/19/17: *Rapid viral influenza A/B: + influenza Type A was noted, & perhaps this is the source. The patient was on no new medications to cause the above. He was on Atorvastatin, which usually causes more of a transaminitis than cholestasis. Amlodipine can cause hepatitis. The hypotension may have contributed to the LFTs , as well. I felt that his cholelithiasis was incidental in nature, without any cholecystitis, choledocholithiasis, or dilated ducts. His hepatic cyst was incidental as well. I felt that the yield of an MRCP would be low, and the patient has an implanted neurostimulator, probably prohibiting this. I did not feel that the risk:benefit ratio warranted the more invasive ERCP. Admission [ Tylenol] < 10. *With regards to the anemia, which is chronic in nature, on my exam he had brown , trace OB positive stool. He has had an extensive GI workup for the above, including relatively recent EGD/colonoscopy/push enteroscopy to the jejunum. The patient was repeatedly noncompliant with a suggested outpt PillCam. He certainly could have small bowel angiodysplasias, which could be associated with CKD and/or (Heyde's syndrome). Clinically, I did not feel that he was actively GI bleeding to the point that would warrant a repeat EGD. He was hypotensive, which resolved. I did not think this was from the mildly OB positive stool, but rather from dehydration and possible sepsis. 07/19/17: *Viral culture- pending. 07/19/17: *Hep A Ab, Hep Bs Ag, Hep B core Ab, Hep C Ab- all negative. 07/20/17: 12:20 a.m.- WBC 5.0 (87S/8L/5M), H/H 8.8/26.2, MCV 92.4, RDW 16.8, PLT 187, 07/20/17: 5:15 a.m.- WBC 4.7, H/H 8.8/26.7, MCV 92.8, RDW 16.9, PLT 191, PT 14.7 , INR 1.40, glucose 88, BUN/Cr 87/8.4, GFR 6, Na 140, K 5.5, HCO3 19, AG 22, Ca 8.3, PO4 7.2, Mg 1.7, alb 3.4, TBil 5.6, alk phos 314, AST 69, ALT 102, CK 127, B12 > 1000, troponin- neg x 2. *The patient was started on Tamiflu 07/20/17. The patient's Hgb remained relatively stable for him. His LFTs were improving. Numerous consultants' notes appreciated (i.e.- ICU, renal, cardiology, etc.). The patient's implantable neurostimulator was not compatible with MRCP. As his LFTs were coming down, I did not push for ERCP. He had no signs of cholangitis, nor any dilated ducts. Again, ? if LFTs were rx in nature to a systemic process, such as influenza A. He remained on EPO. Pantoprazole was continued. Atrovastatin was held. Ibuprofen was never given, & D/C'd. He remained on baby ASA. *As of 07/20/17, the patient remained hemodynamically stable & currently afebrile (T 97.2, Tm 99.3), with O2 sat 2L nc- 97%. He received HD 07/20/17, as he missed his routine HD 1 day prior. He denied any over GI bleeding (dark brown stool, trace OB+ on my 07/19/17: digital exam). He denied any subjecive fevers, chills, abdominal pain, nausea, vomiting, or diarrhea. He remained with a cough productive of brown sputum. He had no CP or SOB. His fatigue was improving & he was tolerating clears po. 07/20/17: S. 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 *As of 07/21/17, the patient remained hemodynamically stable in the ICU, with O2 sat 2L nc- 93%. T 98.7 with Tm 99.9, on Tamiflu. Serologic testing for atypical pneumonia- negative. There was no overt GI bleeding. The patient was getting HD. He had tolerated clears po. He was tentatively made NPO by the ICU team, as his bilirubin had bumped up. He remained completely asymptomatic from a GI perspective, without any abdominal pain, nausea, vomiting, chills, confusion, or pruritus. He remained yellow. Recent imaging studies, including CT/sono, without dilated ducts. Again, implantable neurostimulator prohibited MRCP. His outpt Atorvastatin had been discontinued. He had a dry cough, with some nasal congestion. He denied any chest pain or shortness of breath. *At the moment, I still felt that the patient's LFTs were probably reactive in nature, due to some systemic process, possibly the influenza A. His cholelithiasis most likely is incidental in nature. With the magnitude of his predominantly elevated direct bilirubin, I would expect dilated ducts on imaging studies, which he has not had. Unfortunately, MRCP could not be performed because of an implantable neurostimulator. At present, I feel that the risk: benefit ratio does not want an invasive ERCP. He had a completely benign abdominal exam. 07/22/17: XRY-PORTABLE CHEST XRAY- Persistent marked elevation of the left hemidiaphragm with slight increased linear atelectasis at the left base and minimal atelectasis at the right base. No evidence of pulmonary edema. 07/22/17: US-LIMITED ABDOMEN- Suboptimal evaluation due to patient's body habitus. GB. CBD, & liver poorly visualized. Questionable subtle dilated IHD left lobe. Known stable cystic lesion inferior aspect of right lobe, dating back to at least 09/26/15. Alternative imaging modality such as MRCP may be considered for further full detailed evaluation, if clinically appropriate. DICTATED BY: Sunil Hood MD [As previously stated in my initial GI consult of 07/19/17, the patient *can't have MRCP due to implantable neurostimulator]. 07/23/17: XRY-PORTABLE CHEST XRAY- No significant change from 07/22/2017. Redemonstrated left hemidiaphragm elevation and suspected bibasilar atelectasis. *Weekend events & multiple notes noted. The patient was transferred to General Medicine on the ICU, as per transfer note of 07/22/17. The patient's major issues remain primarily related to his influenza and CO2 retention, with a smaller component of hypoxia. He was placed on BiPAP. He was lethargic the evening of 07/23/17, which improved after BiPAP. His LFTs had fluctuated. Repeat : RUQ sonogram was of very poor quality. *Again, MRCP cannot be done because of the patient's implantable neurostimulator. 07/23/17: 10:50 p.m.- ABL nc- 7.25/52/90/94%, HCO3 23, CO HB 1.7. 07/24/17: 1:35 a.m.- AB% FiO2 (BiPAP 18/, RR 22)- 7.28/51/87/94%, HCO3 23, CO HB 1.0. 07/24/17: 6:33 a.m.-AB% FiO2 (BiPAP 18/12, RR 26)- 7.28/88/101/95%,HCO3 22,CO HB 1.5. 07/23/17: WBC 4.4 (79S/4B/11L/6M/1 NRBC), H/H 8.4/25.7, MCV 93.3, RDW 17.1, PLT 201, BUN/Cr 59/6.1, GFR 9, Na 140, K 5.1, HCO3 24, AG 18, albumin 3.5, globulin 3.1, TBil 7.8, DBil 6.9, alk phos 425, AST 85, ALT 101, NH3 35. *As of 07/24/17, 152/84, P 94, R 18, T 98.2, without temperature spike. He was now mentating on BiPAP and A & O x 3. He had no symptoms referable to the GI tract or liver, and was just yellow. He had no pruritus, abdominal pain, nausea , vomiting, diarrhea, overt GI bleeding, melena, fevers, chills, recurrent syncope, or confusion. The patient is due for HD today, as his respiratory status allows. IV Solu-Medrol 40 mg Q12h had been added by the ICU/pulmonary team 07/23/17. He had no CP, but remained SOB, with a dry cough. *Tamiflu was completed on 07/24/17, post 5 days tx. 07/24/17: ABG (FiO2 35%/RR 26/BiPAP 18/12): 7.28/48/96/96%/HCO3 22, CO HB 0.9 07/24/17: WBC 7.9, H/H 8.0/24.4, MCV 93, RDW 16.6, PLT 235, PT 12.5, INR 1.19, BUN/Cr 87/7.3, GFR 7, Na 140, K 5.1, HCO3 20, AG 22, albumin 3.5, globulin 2.8, TBil 5.1, DBil 4.5, alk phos 364, AST is 21, ALT 82. 07/24/17: *CA 19-9: *pending. *As of 07/25/17, patient was doing better respiratory keating. He was off BiPAP, on 3 L nc- 93%, hemodynamically stable & afebrile, T 98.1. He had a mild dry cough. His LFTs were improving. He had uneventful HD on 07/24/17, & did not require transfer back to the ICU. The patient had no complaints referable to his GI tract or liver. He denied any confusion. He was slightly less yellow. He denied any pruritus, overt GI bleeding, melena, fevers, chills, nausea, or vomiting. He was tolerating a renal diet. Numerous liver serologies suggested on my initial 07/19/17: GI consult had not yet been sent. *SUGGEST: *Renal diet as tolerated. Implantable neurostimulator is incompatible with MRCP, & risk:benefit ratio not insignificant for ERCP/EUS, the latter of which is not available here (no dilated ducts on 07/19/17: CT/sono; LFTs declining- ? if systemic in nature, from influenza A), vs. intrinsic liver issue, which would require liver bx. Having stated that, *LFTs are declining (although occasionally , a cholangioCa can have fluctuating LFTs, if acting in a ball valve mechanism). *At present, the patient's respiratory status is improved, off BiPAP, on O2 3L nc. Await 07/19/17: *viral cultures. *Continue to hold Atorvastatin for now. HD & EPO (+/- IV Fe), per renal. Serial LFTs, INR, & CBC. *Tamiflu 30 mg after HD x 5d (dosing per renal), completed 07/24/17. Await 07/24/17: *CA 19-9 (r/o cholangioCa and/or pancreatic Ca vs. ampullary lesuion, with painless jaundice; CT was w/o IV cont) *Consider checking EBV/CMV/mono spot (but would expect more of a transaminitis with this). *Consider additional serologies (i.e.- DORA, AMA, etc.), but probably low yield. 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 Follow-up CBC, but no plans for inpatient EGD, unless the patient actively bleeds. T&C 2u PRBC. Keep Hgb > 8 (hx ASHD). Empiric PPI. If anemia worsens, consider holding ASA 81 mg daily, if okay with cardiology. Outpt PillCam, as patient allows. *Avoid NSAIDS. DVT prophylaxis with mechanical ALPS. Keep Tylenol to < 2g daily. Avoid hepatotoxins. By dates, one could consider a repeat colonoscopy in 12/2017, 3 years after his last study, in view of his hx colonic TA/SSP, personal hx colon Ca, & +FHx colon Ca. However, he will be 88 y/o then, & I don' t feel this would be warranted by the risk:benefit ratio. *Further GI recommendations to follow, depending on clinical course. The above was again discussed with the patient & the patient's RN, & previously with the patient's , Andrea, at the bedside, & the medical house staff in great detail. Problem List: 1. Elevated LFTs 2. Influenza A 3. Syncope 4. Jaundice 5. Cholelithiasis 6. Hepatic cyst 7. Iron (Fe) deficiency anemia 8. Diverticulosis of colon 9. History of colon cancer 10. Positive occult stool blood test 11. Family history of colon cancer in mother Subjective Subjective: 07/24/17: ABG (FiO2 35%/RR 26/BiPAP 18/12): 7.28/48/96/96%/HCO3 22, CO HB 0.9 07/24/17: WBC 7.9, H/H 8.0/24.4, MCV 93, RDW 16.6, PLT 235, PT 12.5, INR 1.19, BUN/Cr 87/7.3, GFR 7, Na 140, K 5.1, HCO3 20, AG 22, albumin 3.5, globulin 2.8, TBil 5.1, DBil 4.5, alk phos 364, AST is 21, ALT 82. 07/24/17: *CA 19-9: *pending. *As of 07/25/17, patient was doing better respiratory keating. He was off BiPAP, on 3 L nc- 93%, hemodynamically stable & afebrile, T 98.1. He had a mild dry cough. His LFTs were improving. He had uneventful HD on 07/24/17, & did not require transfer back to the ICU. The patient had no complaints referable to his GI tract or liver. He denied any confusion. He was slightly less yellow. He denied any pruritus, overt GI bleeding, melena, fevers, chills, nausea, or vomiting. He was tolerating a renal diet. Numerous liver serologies suggested on my initial 07/19/17: GI consult had not yet been sent. Review of Systems: Full 14 point ROS otherwise N/C, & as per HPI. Review of Systems Constitutional: Reports: malaise & weakness- improving. Denies: chills, diaphoresis, fever, unexplained weight loss. EENTM: Reports:chronic hearing changes. Denies: no symptoms (nasal congestion), blurred vision, double vision, visual changes, eye pain, eye drainage, eye tearing, icterus, ear discharge, ear pain, ear redness, nasal congestion, epistaxis, nasal pain, throat pain, throat swelling, mouth pain, tooth pain. Cardiovascular: Reports: peripheral edema (trace), syncope-> resolved. Denies: chest pain, edema, orthopena, palpitations. Respiratory: Reports: cough (brown sputum-> now dry), SOB-> better, off BiPAP. Denies: hemoptysis, orthopnea, stridor, wheezing. GI: Reports: melena (? dark stool- *resolved). Denies: abdominal pain, bloating, constipation, diarrhea, distention, bowel incontinence, nausea, bloody stool, changes in stool, vomiting, steatorrhea. Genitourinary: Denies: discharge, dysuria, frequency, hematuria, hesitation, nocturia, pain, urgency. Musculoskeletal: Reports: back pain/left lat chest wall (chronic post zoster), joint pain (DJD). Denies: gout, joint swelling, muscle pain, muscle stiffness, neck pain. Skin: Reports: jaundice. Denies: cysts, change in skin color, change in hair/nails, dryness, erythema, lesions, lymphangitis, lumps, moles, rash. Neurological/Psychological: Reports: neuropathy & hx falls Denies: anxiety, ataxia, cognitive dysfunction, confusion, depressed, dementia, emotional problems, headache, numbness, paresthesia, pre-existing deficit, petit mal seizures, tingling, tremors, tonic-clonic seizures, unable to move lower ext , unable to move upper ext, weakness. Hematologic/Endocrine: Denies: bruising, bleeding, polyuria, polydipsia. Immunologic/Allergic: Denies: splenectomy, HIV/AIDS, lymphadenopathy. All Other Systems: Reviewed and Negative Objective Vital Signs and I&Os Vital Signs Date Time Temp Pulse Resp B/P B/P Pulse O2 O2 Flow FiO2 Mean Ox Delivery Rate 07/25 0522 98.1 96 22 132/60 93 07/25 0000 Nasal 3.0L Cannula 07/244 97.9 88 20 134/70 93 Nasal 4.0L Cannula 07/24 1905 92 Nasal 3.0L Cannula 07/24 1806 101 158/77 07/24 180 97.8 101 20 158 96 Nasal 4.0L Cannula 07/24 1800 Nasal 2.0L Cannula 07/24 0912 98.0 90 22 146/78 93 Nasal 4.0L Cannula 07/24 0800 94 BIPAP 35% 07/24 0759 22 94 BIPAP 35% Intake & Output 07/25 1600 07/25 0400 07/24 1600 07/24 0400 07/23 1600 07/23 0400 Intake Total 240 600 005 889 6391 615 Output Total 300 0 300 200 Balance 240 300 109 661 3976 415 Intake, IV 100 10 20 15 Intake, Oral 240 500 148 023 1441 600 Number 0 0 2 1 Bowel Movements Output, Urine 300 0 300 200 Patient 234 lb 241 lb 248 lb 240 lb Weight Weight Bed scale Measurement Method Physical Exam: Well-developed, well-nourished, chronically ill appearing, obese male in mild distress. Sclera: slightly less icteric. Conjunctiva slightly pale. Oropharynx clear. Poor dentition. There is no adenopathy, thyromegaly, or JVD. No peripheral stigmata of inflammatory bowel disease or chronic liver disease on exam. No spiders on the anterior chest wall. No gynecomastia. No CVA tenderness. No spine tenderness. Dextroscoliosis of mid-L spine. Tender left lateral chest wall (post-herpetic neuralgia), without gross zoster. Lungs: clear to A&P, with slight decreased BS at the left base > right base. Heart exam: regular rate rhythm S1 and S2, with I/ systolic murmur. s/p CABG. Abdominal exam: normal bowel sounds, obese, soft belly, nontender, without guarding or rebound. Small B/L IH, otherwise, no mass. No organomegaly. Negative Mccauley sign. No fluid shift. No pulsatile mass. No epigastric bruit. Digital rectal exam done by myself 07/19/17: Dark brown stool (on iron), trace OB-positive, without mass. Smooth enlarged prostate. No nodules. No external hemorrhoids. No fissure. No bright red blood. Extremities: without cyanosis or clubbing. Trace pedal edema B/L. LUE AVF, with + thrill, + bruit. Positive DJD. No palpable cords. No palmar erythema. No Dupuytren's conttractures. Distal pulses 1+ bilaterally. DTRs 1+ bilaterally. Alert and oriented x 3. Less lethargic post BiPAP. WRANGELL. Right handed. Motor 4/5 B/L. CN II-XII intact. No tremor. No asterixis. Current Medications: Current Medications Sig/Tiffanie Start time Last Medication Dose Route Stop Time Status Admin Albuterol Sulfate 3 ML EVERY 4 HRS/AWAKE 07/22 1200 AC 07/24 INH 1905 Amlodipine Besylate 10 MG DAILY 07/22 1117 AC 07/24 PO 1806 Aspirin 81 MG DAILY 07/20 1000 AC 07/24 PO 1805 Cholecalciferol 1,000 IU DAILY 07/20 1000 AC 07/24 PO 1805 Docusate Sodium 100 MG BID 07/22 1115 AC 07/24 PO 2140 Duloxetine HCl 30 MG DAILY 07/22 1116 AC 07/24 PO 1806 Epoetin Earnest 2,000 UNIT TUES THURS SAT 07/20 1424 AC 07/20 IV 1716 Gabapentin 300 MG QPM 07/20 2200 AC 07/24 PO 2140 Levothyroxine Sodium 0.05 MG DAILY AC 07/26 0700 AC PO Levothyroxine Sodium 0.05 MG DAILY 07/25 0600 DC 07/25 PO 0528 Levothyroxine Sodium 0.05 MG DAILY 07/20 1000 DC 07/24 PO 0932 Lidocaine 2 PAT Q24H 07/21 1630 AC 07/24 EXT 1807 Lidocaine 1 ANI DAILY NEEDED PRN 07/20 1015 AC TOP Lidocaine/Prilocaine 1 ANI DAILY PRN 07/20 1315 AC 07/24 TOP 1213 Methylprednisolone 40 MG Q8 07/24 1400 AC 07/25 IV 0528 Methylprednisolone 40 MG Q12 07/23 2200 DC 07/23 IV 2127 Oseltamivir Phosphate 30 MG ONCE ONE 07/24 1330 CAN PO 07/24 1331 Pantoprazole Sodium 40 MG DAILY 07/20 1000 AC 07/24 IV 0932 Paricalcitol 2 MCG ONCE ONE 07/24 1415 DC IV 07/24 1416 Polyethylene Glycol 17 GM DAILY AC 07/22 1118 AC 07/25 PO 0529 Senna 187 MG DAILY 07/22 1115 AC 07/23 PO 0924 Sevelamer Carbonate 800 MG WM 07/20 0800 AC 07/24 PO 1805 Vitamin E 400 IU DAILY 07/20 1000 AC 07/24 PO 1806 Results Pertinent Lab Results: Laboratory Tests 07/25 07/24 07/24 0636 2245 1056 Chemistry Sodium (137 - 145 mmol/L) Pending 140 Potassium (3.5 - 5.1 mmol/L) Pending 5.1 Chloride (98 - 107 mmol/L) Pending 98 Carbon Dioxide (22 - 30 mmol/L) Pending 20 L Anion Gap (5 - 16) Pending 22 H BUN (9 - 20 mg/dL) Pending 87 H Creatinine (0.7 - 1.2 mg/dL) Pending 7.3 *H Estimated GFR (>60 ml/min) 7 L BUN/Creatinine Ratio (7 - 25 %) Pending 11.9 Total Bilirubin (0.2 - 1.3 mg/dL) Pending 5.1 H Direct Bilirubin (< 0.4 mg/dL) Pending 4.5 H AST (17 - 59 U/L) Pending 51 ALT (21 - 72 U/L) Pending 82 H Alkaline Phosphatase (< 127 U/L) Pending 364 H Total Protein (6.3 - 8.2 g/dL) Pending 6.3 Albumin (3.5 - 5.0 g/dL) Pending 3.5 Coagulation PT (9.4 - 12.5 SEC) 12.5 INR (0.90 - 1.17) 1.19 H Hematology CBC w Diff Pending MAN DIFF ORDERED WBC (4.8 - 10.8 /CUMM) Pending 7.9 RBC (4.70 - 6.10 /CUMM) Pending 2.63 L Hgb (14.0 - 18.0 G/DL) Pending 8.0 L Hct (42 - 52 %) Pending 24.4 L MCV (80.0 - 94.0 FL) Pending 93.0 MCH (27.0 - 31.0 PG) Pending 30.6 RDW (11.5 - 14.5 %) Pending 16.6 H Plt Count (130 - 400 /CUMM) Pending 235 MPV (7.4 - 10.4 FL) Pending 8.2 Gran % (42.2 - 75.2 %) 87.5 H Lymphocytes % (20.5 - 51.1 %) 5.1 L Monocytes % (1.7 - 9.3 %) 7.3 Eosinophils % (0 - 5 %) 0 Basophils % (0.0 - 2.0 %) 0.1 Absolute Granulocytes (1.4 - 6.5 /CUMM) 6.9 H Absolute Lymphocytes (1.2 - 3.4 /CUMM) 0.4 L Absolute Monocytes (0.10 - 0.60 /CUMM) 0.6 Absolute Eosinophils (0.0 - 0.7 /CUMM) 0 Absolute Basophils (0.0 - 0.2 /CUMM) 0 Platelet Estimate (ADEQUATE) VERIFIED BY SMEAR Polychromasia 1+ Hypochromic-Microcytic 1+ Anisocytosis 1+ Stomatocytes 1+ PUBS MCHC (33.0 - 37.0 G/DL) Pending 32.9 L 07/24 07/24 07/24 07/24 0836 0615 0600 0135 Blood Gas pH (7.35 - 7.45 PH) 7.28 *L 7.28 *L 7.28 *L pCO2 (35 - 45 TORR) 48 H 48 H 51 H pO2 (80 - 100 TORR) 96 101 H 87 HCO3 (21 - 28 MEQ/L) 22 22 23 ABG O2 Sat (Measured) (>96.0 %) 96.0 95.0 L 94.0 L P-50 (Temp Corrected) YES Y N Carboxyhemoglobin (1.5 - 5.0 %) 0.9 L 1.5 1.0 L O2 Concentration % 35% 35% 35% Temperature (97.0 - 100.0 FARH) 98.2 98.2 98.6 Respiration Rate (BPM) 26 26 22 O2 Delivery Method BIPAP VISION VISION-FFM Vent Mode ST ST ST Expiratory Pressure (CM H2O P) 6 6 6 Inspiratory Pressure (CM H2O P) 18 18 18 Chemistry CA 19-9 Antigen Pending Miscellaneous Phlebotomy Draw Site RIGHT RADIAL LEFT RADIAL LEFT RADIAL 07/23 07/23 07/23 8345 0601 4066 Blood Gas pH (7.35 - 7.45 PH) 7.25 *L pCO2 (35 - 45 TORR) 52 H pO2 (80 - 100 TORR) 90 HCO3 (21 - 28 MEQ/L) 23 ABG O2 Sat (Measured) (>96.0 %) 94.0 L P-50 (Temp Corrected) Y Carboxyhemoglobin (1.5 - 5.0 %) 1.7 O2 Concentration % 4L Temperature (97.0 - 100.0 FARH) 97.1 O2 Delivery Method NC Chemistry Sodium (137 - 145 mmol/L) 140 Potassium (3.5 - 5.1 mmol/L) 5.1 Chloride (98 - 107 mmol/L) 98 Carbon Dioxide (22 - 30 mmol/L) 24 Anion Gap (5 - 16) 18 H BUN (9 - 20 mg/dL) 59 H Creatinine (0.7 - 1.2 mg/dL) 6.1 *H Estimated GFR (>60 ml/min) 9 L BUN/Creatinine Ratio (7 - 25 %) 9.7 Total Bilirubin (0.2 - 1.3 mg/dL) 7.8 H Direct Bilirubin (< 0.4 mg/dL) 6.9 H AST (17 - 59 U/L) 85 H ALT (21 - 72 U/L) 101 H Alkaline Phosphatase (< 127 U/L) 425 H Ammonia (9 - 30 umol/L) 35 H Total Protein (6.3 - 8.2 g/dL) 6.4 Albumin (3.5 - 5.0 g/dL) 3.5 Hematology CBC w Diff MAN DIFF ORDERED WBC (4.8 - 10.8 /CUMM) 4.4 L RBC (4.70 - 6.10 /CUMM) 2.75 L Hgb (14.0 - 18.0 G/DL) 8.4 L Hct (42 - 52 %) 25.7 L MCV (80.0 - 94.0 FL) 93.3 MCH (27.0 - 31.0 PG) 30.5 RDW (11.5 - 14.5 %) 17.1 H Plt Count (130 - 400 /CUMM) 201 MPV (7.4 - 10.4 FL) 8.4 Gran % (42.2 - 75.2 %) 92.1 H Lymphocytes % (20.5 - 51.1 %) 5.5 L Monocytes % (1.7 - 9.3 %) 2.4 Eosinophils % (0 - 5 %) 0 Basophils % (0.0 - 2.0 %) 0 Absolute Granulocytes (1.4 - 6.5 /CUMM) 4.1 Segmented Neutrophils (42.2 - 75.2 %) 79 H Band Neutrophils (0.0 - 5.0 %) 4 Absolute Lymphocytes (1.2 - 3.4 /CUMM) 0.2 L Lymphocytes (20.5 - 51.1 %) 11 L Monocytes (1.7 - 9.3 %) 6 Absolute Monocytes (0.10 - 0.60 /CUMM) 0.1 Absolute Eosinophils (0.0 - 0.7 /CUMM) 0 Absolute Basophils (0.0 - 0.2 /CUMM) 0 Nucleated RBCs (0.0 - 0.0 /100WBC) 1 H Platelet Estimate (ADEQUATE) ADEQUATE Hypochromic-Microcytic 2+ Anisocytosis 1+ PUBS MCHC (33.0 - 37.0 G/DL) 32.7 L Miscellaneous Phlebotomy Draw Site RIGHT RADIAL Imaging/Other Studies: 07/19/17: EKG- NSR @ 76, 1st degree AVB, [place] .261, normal axis (V3 missing), NSST flattening. 07/19/17: XRY-PORTABLE CHEST XRAY- No definite evidence of pulmonary edema at this time. Elevated left hemidiaphragm, chronic. Mediastinum is difficult to assess with this technique. 07/19/17: CT CHEST, ABDOMEN AND PELVIS WITHOUT CONTRAST- 1. Asymmetric elevation of left diaphragm compared to right. Atelectasis at left lung base. No acute change of the chest. 2. Stable cystic lesion inferior right lobe of liver. No suspicious liver lesion. No ascites. 3. Cholelithiasis without acute change of gallbladder wall. No dilated ducts. 4. Atrophic right kidney. Bilateral renal cysts. No acute abnormality of kidneys. 5. Diverticulosis of colon without acute change of bowel. Status post prior surgical anastomosis at sigmoid colon intact. 6. Stable left adrenal lesion. 7. Small B/L IH. 8. DJD. Dextroscoliosis mid-L spine. 07/19/17: RUQ ABDOMINAL ULTRASOUND (LIMITED)- Liver of mildly heterogeneous echogenicity. No intrahepatic biliary ductal dilation. CBD 4 mm. Old 4.8 cm cyst within the right lobe with peripheral calcification. Cholelithiasis without evidence of cholecystitis. 07/19/17: CT HEAD WO IV CONTRAST- No evidence for acute intracranial injury. Age-appropriate appearance of the brain. 07/20/17: ECHOCARDIOGRAM- Normal left ventricular systolic function 60-65%. Left atrial enlargement. Mild to moderate Aortic stenosis. Mild to moderate Mitral stenosis. Moderate Pulmonary hypertension. 07/22/17: XRY-PORTABLE CHEST XRAY- Persistent marked elevation of the left hemidiaphragm with slight increased linear atelectasis at the left base and minimal atelectasis at the right base. No evidence of pulmonary edema. 07/22/17: US-LIMITED ABDOMEN- Suboptimal evaluation due to patient's body habitus. GB. CBD, & liver poorly visualized. Questionable subtle dilated IHD left lobe. Known stable cystic lesion inferior aspect of right lobe, dating back to at least 09/26/15. Alternative imaging modality such as MRCP may be considered for further full detailed evaluation, if clinically appropriate. DICTATED BY: Sunil Hood MD [As previously stated in my initial GI consult of 07/19/17, the patient *can't have MRCP due to implantable neurostimulator]. 07/23/17: XRY-PORTABLE CHEST XRAY- No significant change from 07/22/2017. Redemonstrated left hemidiaphragm elevation and suspected bibasilar atelectasis.
--- NOTE | 2017-07-25 08:13 | PN- Housestaff ---
Evelyn Venegas 07/25/17 0813: Subjective Follow-up For: Flu Cholestasis Syncopal episode End-stage renal disease on dialysis Subjective: Patient was seen and examined this morning. He was lying comfortably on bed without any significant complaints. He remained afebrile and hemodynamically stable. Saturating 96% on 3 L of nasal cannula. Review of Systems Constitutional: Denies: diaphoresis, fever, malaise. Cardiovascular: Denies: chest pain, orthopena. Respiratory: Denies: cough, hemoptysis. Gastrointestinal: Denies: bloating, distention. Genitourinary: Denies: dysuria, hematuria. Musculoskeletal: Denies: joint swelling. Objective Last 24 Hrs of Vital Signs/I&O is as Vital Signs Date Time Temp Pulse Resp B/P B/P Pulse O2 O2 Flow FiO2 Mean Ox Delivery Rate 07/25 1645 96 Nasal 3.0L Cannula 07/25 1451 97.7 85 20 157/88 94 Nasal 3.0L Cannula 07/25 1000 20 93 Nasal 3.0L Cannula 07/25 0918 78 132/80 07/25 0855 90 Nasal 3.0L Cannula 07/25 0800 95 Nasal 3.0L Cannula 07/25 0522 98.1 96 22 132/60 93 07/25 0000 Nasal 3.0L Cannula 07/24 2144 97.9 88 20 134/70 93 Nasal 4.0L Cannula 07/24 1905 92 Nasal 3.0L Cannula 07/24 1806 101 158/77 07/24 1806 97.8 101 20 158/77 96 Nasal 4.0L Cannula 07/24 1800 Nasal 2.0L Cannula Intake & Output 07/25 1600 07/25 0800 07/25 0000 Intake Total 810 240 600 Output Total 0 300 Balance 810 240 300 Intake, IV 10 100 Intake, Oral 800 240 500 Number 0 Bowel Movements Output, Urine 0 300 Patient 234 lb 241 lb Weight Physical Exam General Appearance: Alert, Oriented X3, Cooperative, No Acute Distress ([place]) Cardiovascular: Regular Rate, Normal S1, Normal S2 Lungs: Normal Air Movement Abdomen: Soft, No Tenderness Current Medications: Current Medications Sig/Tiffanie Start time Last Medication Dose Route Stop Time Status Admin Albuterol Sulfate 3 ML EVERY 4 HRS/AWAKE 07/22 1200 AC 07/25 INH 1646 Amlodipine Besylate 10 MG DAILY 07/22 1117 AC 07/25 PO 0918 Aspirin 81 MG DAILY 07/20 1000 AC 07/25 PO 0918 Cholecalciferol 1,000 IU DAILY 07/20 1000 AC 07/25 PO 0918 Docusate Sodium 100 MG BID 07/22 1115 AC 07/25 PO 0918 Duloxetine HCl 30 MG DAILY 07/22 1116 AC 07/25 PO 0918 Epoetin Earnest 2,000 UNIT TUES THURS SAT 07/20 1424 AC 07/20 IV 1716 Gabapentin 300 MG QPM 07/20 2200 AC 07/24 PO 2140 Levothyroxine Sodium 0.05 MG DAILY AC 07/26 0700 AC PO Levothyroxine Sodium 0.05 MG DAILY 07/25 0600 DC 07/25 PO 0528 Lidocaine 2 PAT Q24H 07/21 1630 AC 07/25 EXT 1745 Lidocaine 1 ANI DAILY NEEDED PRN 07/20 1015 AC TOP Lidocaine/Prilocaine 1 ANI DAILY PRN 07/20 1315 AC 07/24 TOP 1213 Methylprednisolone 40 MG Q12 07/25 2200 AC IV Methylprednisolone 40 MG Q8 07/24 1400 DC 07/25 IV 0528 Pantoprazole Sodium 40 MG DAILY 07/20 1000 AC 07/25 IV 0918 Polyethylene Glycol 17 GM DAILY AC 07/22 1118 AC 07/25 PO 0529 Senna 187 MG DAILY 07/22 1115 AC 07/23 PO 0924 Sevelamer Carbonate 800 MG WM 07/20 0800 AC 07/25 PO 1744 Vitamin E 400 IU DAILY 07/20 1000 AC 07/25 PO 0918 Last 24 Hrs of Lab/Jamel Results Last 24 Hrs of Labs/Mics: Laboratory Tests 07/25/17 0636: Anion Gap 16, Estimated GFR 12 L, BUN/Creatinine Ratio 10.7, Total Bilirubin 7.9 H, Direct Bilirubin 7.2 H, AST 96 H, ALT 104 H, Alkaline Phosphatase 375 H, Total Protein 6.1 L, Albumin 3.4 L, CBC w Diff NO MAN DIFF REQ, RBC 2.55 L, MCV 93.8, MCH 30.5, RDW 17.6 H, MPV 8.1, Gran % 91.7 H, Lymphocytes % 4.0 L, Monocytes % 4.2, Eosinophils % 0.1, Basophils % 0, Absolute Granulocytes 6.8 H, Absolute Lymphocytes 0.3 L, Absolute Monocytes 0.3, Absolute Eosinophils 0, Absolute Basophils 0, PUBS MCHC 32.5 L 07/24/17 2245: PT 12.5, INR 1.19 H Assessment/Plan Assessment: Mr Martinez has a PMHx of coronary artery disease s/p CABG, colon cancer status post resection and anastomosis, HFpEF uses nocturnal O2 as needed, moderate , ROBYN not on CPAP, chronic back pain w/ neurostimulator in place, ESRD on HD was brought in after he was found to be hypoxemic 84% while he was sitting in his chair, and subsequently had a syncopal episode likely from dehydration. He was also found to have influenza and was started on Tamiflu. Plan: 1. Influenza- He was started on oseltamivir and he completed 5 days. 2. Abnormal liver chemistries- Patient was seen by gastroenterology and at this point his elevated liver enzymes are most likely cholestatic transaminitis and was because of underlying infectious histology. We will continue watching LFTs as they are trending down. We continue holding his statins as well. Patient is not a candidate for ERCP. After discussing with gastroenterology CA 199 was sent which is still pending. His liver enzymes still trending up but I spoke with gastroenterology and according to the thought it might be due to cholestatic Parul midnight his and he can be discharged tomorrow to home/rehabilitation with instruction to follow-up with Dr. Flowers in a week. 3. Syncope- Likely from dehydration. - Was evaluated by the senior procurement manager. - Echocardiogram done on 07/20 showed aortic stenosis (moderate). 3. ESRD on HD - He undergoes dialysis M/W/F - Renal dialysis diet. 4. HTN On home regimen of antihypertensives 5. GI bleed- - H&H stable - Monitor closely. Problem List: 1. Cholelithiasis 2. Influenza A Pain Ratin Pain Location: Not applicable Pain Goal: Remain pain free Pain Plan: Tylenol Tomorrow's Labs & Rationales: CbC, basic electrolyte panel and LFTs Sofía Houston MD 07/25/17 1211: Attending Review Statement Attending Statement Attending MD Statement: examined this patient, discuss w/resident/PA/HEAD CASHIER, agreed w/resident/PA/HEAD CASHIER, reviewed EMR data (avail), discussed with nursing, discussed with case mgmt, reviewed images, amended to note Attending Assessment/Plan: Patient seen and examined, doing ok. Denies any complaints. Claims that breathing has improved. Vital Signs Date Time Temp Pulse Resp B/P B/P Pulse O2 O2 Flow FiO2 Mean Ox Delivery Rate 07/25 0918 78 132/80 07/25 0855 90 Nasal 3.0L Cannula 07/25 0800 95 Nasal 3.0L Cannula 07/25 0522 98.1 96 22 132/60 93 07/25 0000 Nasal 3.0L Cannula 07/24 2144 97.9 88 20 134/70 93 Nasal 4.0L Cannula 07/24 1905 92 Nasal 3.0L Cannula 07/24 1806 101 158/77 07/24 1806 97.8 101 20 158/77 96 Nasal 4.0L Cannula 07/24 1800 Nasal 2.0L Cannula on exam; awake, nad. cv; s1,s2, rrr resp; clear abd; soft, nt, bs+ ext; no edema. Laboratory Tests 07/25 07/24 0636 2245 Chemistry Sodium (137 - 145 mmol/L) 140 Potassium (3.5 - 5.1 mmol/L) 4.8 Chloride (98 - 107 mmol/L) 100 Carbon Dioxide (22 - 30 mmol/L) 24 Anion Gap (5 - 16) 16 BUN (9 - 20 mg/dL) 49 H Creatinine (0.7 - 1.2 mg/dL) 4.6 H Estimated GFR (>60 ml/min) 12 L BUN/Creatinine Ratio (7 - 25 %) 10.7 Total Bilirubin (0.2 - 1.3 mg/dL) 7.9 H Direct Bilirubin (< 0.4 mg/dL) 7.2 H AST (17 - 59 U/L) 96 H ALT (21 - 72 U/L) 104 H Alkaline Phosphatase (< 127 U/L) 375 H Total Protein (6.3 - 8.2 g/dL) 6.1 L Albumin (3.5 - 5.0 g/dL) 3.4 L Coagulation PT (9.4 - 12.5 SEC) 12.5 INR (0.90 - 1.17) 1.19 H Hematology CBC w Diff NO MAN DIFF REQ WBC (4.8 - 10.8 /CUMM) 7.4 RBC (4.70 - 6.10 /CUMM) 2.55 L Hgb (14.0 - 18.0 G/DL) 7.8 L Hct (42 - 52 %) 23.9 L MCV (80.0 - 94.0 FL) 93.8 MCH (27.0 - 31.0 PG) 30.5 RDW (11.5 - 14.5 %) 17.6 H Plt Count (130 - 400 /CUMM) 235 MPV (7.4 - 10.4 FL) 8.1 Gran % (42.2 - 75.2 %) 91.7 H Lymphocytes % (20.5 - 51.1 %) 4.0 L Monocytes % (1.7 - 9.3 %) 4.2 Eosinophils % (0 - 5 %) 0.1 Basophils % (0.0 - 2.0 %) 0 Absolute Granulocytes (1.4 - 6.5 /CUMM) 6.8 H Absolute Lymphocytes (1.2 - 3.4 /CUMM) 0.3 L Absolute Monocytes (0.10 - 0.60 /CUMM) 0.3 Absolute Eosinophils (0.0 - 0.7 /CUMM) 0 Absolute Basophils (0.0 - 0.2 /CUMM) 0 PUBS MCHC (33.0 - 37.0 G/DL) 32.5 L A/P: 87 y/o M with pmh sig for CKD on hemodialysis Monday, Monday (he missed Hemodialysis session today), aortic stenosis, heart failure with preserved ejection fraction, coronary artery disease status post CABG 5, pulmonary hypertension, hyperlipidemia, hypertension, hypothyroidism, osteoarthritis, colonic cancer status post resection and anastomosis, CH hypercarbic resp failure, and obstructive sleep apnea on nocturnal oxygen supplementation admitted with abnl LFTs, + Influenza. Agree with taking steroids. Completed 5 day course of Tamiflu. Continue other current medications. Patient was seen by physical therapy and recommended home physical therapy. Possible discharge home with home PT tomorrow.
[2017-07-25 09:26] LABS: ABSOLUTE BASOPHIL COUNT 0 /CUMM (0.0-0.2); ABSOLUTE EOSINOPHIL COUNT 0 /CUMM (0.0-0.7); ABSOLUTE GRANULOCYTE CT 6.8 /CUMM (1.4-6.5); ABSOLUTE LYMPH COUNT 0.3 /CUMM (1.2-3.4); ABSOLUTE MONOCYTE COUNT 0.3 /CUMM (0.10-0.60); BASOPHIL % 0 % (0.0-2.0); EOSINOPHIL % 0.1 % (0-5); HEMATOCRIT 23.9 % (42-52); MEAN CORPUSCULAR HGB 30.5 PG (27.0-31.0); MEAN CORPUSCULAR HGB CONC 32.5 G/DL (33.0-37.0); MEAN CORPUSCULAR VOLUME 93.8 FL (80.0-94.0); MEAN PLATELET VOLUME 8.1 FL (7.4-10.4); PLATELET COUNT 235 /CUMM (130-400); RBC DISTRIBUTION WIDTH 17.6 % (11.5-14.5); RED BLOOD CELL CT 2.55 /CUMM (4.70-6.10); WHITE BLOOD CELL COUNT 7.4 /CUMM (4.8-10.8)
[2017-07-25 10:41] LABS: GRANULOCYTE % 91.7 % (42.2-75.2)
--- NOTE | 2017-07-25 11:36 | PN- Pulmonary ---
Subjective HPI/Critical Care Issues: Patient seen and examined. He is status post dialysis and feels better we will plan to reduce steroids today. Objective Current Medications: Current Medications Sig/Tiffanie Start time Last Medication Dose Route Stop Time Status Admin Albuterol Sulfate 3 ML EVERY 4 HRS/AWAKE 07/22 1200 AC 07/25 INH 0851 Amlodipine Besylate 10 MG DAILY 07/22 1117 AC 07/25 PO 0918 Aspirin 81 MG DAILY 07/20 1000 AC 07/25 PO 0918 Cholecalciferol 1,000 IU DAILY 07/20 1000 AC 07/25 PO 0918 Docusate Sodium 100 MG BID 07/22 1115 AC 07/25 PO 0918 Duloxetine HCl 30 MG DAILY 07/22 1116 AC 07/25 PO 0918 Epoetin Earnest 2,000 UNIT TUES THURS SAT 07/20 1424 AC 07/20 IV 1716 Gabapentin 300 MG QPM 07/20 2200 AC 07/24 PO 2140 Levothyroxine Sodium 0.05 MG DAILY AC 07/26 0700 AC PO Levothyroxine Sodium 0.05 MG DAILY 07/25 0600 DC 07/25 PO 0528 Lidocaine 2 PAT Q24H 07/21 1630 AC 07/24 EXT 1807 Lidocaine 1 ANI DAILY NEEDED PRN 07/20 1015 AC TOP Lidocaine/Prilocaine 1 ANI DAILY PRN 07/20 1315 AC 07/24 TOP 1213 Methylprednisolone 40 MG Q8 07/24 1400 AC 07/25 IV 0528 Oseltamivir Phosphate 30 MG ONCE ONE 07/24 1330 CAN PO 07/24 1331 Pantoprazole Sodium 40 MG DAILY 07/20 1000 AC 07/25 IV 0918 Paricalcitol 2 MCG ONCE ONE 07/24 1415 DC IV 07/24 1416 Polyethylene Glycol 17 GM DAILY AC 07/22 1118 AC 07/25 PO 0529 Senna 187 MG DAILY 07/22 1115 AC 07/23 PO 0924 Sevelamer Carbonate 800 MG WM 07/20 0800 AC 07/25 PO 0919 Vitamin E 400 IU DAILY 07/20 1000 AC 07/25 PO 0918 Vital Signs & I&O Last 24 Hrs of Vitals and I&O: Vital Signs Date Time Temp Pulse Resp B/P B/P Pulse O2 O2 Flow FiO2 Mean Ox Delivery Rate 07/25 917 78 132/80 07/25 0855 90 Nasal 3.0L Cannula 07/25 0800 95 Nasal 3.0L Cannula 07/25 0522 98.1 96 22 132/60 93 07/25 0000 Nasal 3.0L Cannula 07/24 2144 97.9 88 20 134/70 93 Nasal 4.0L Cannula 07/24 1905 92 Nasal 3.0L Cannula 07/24 1806 101 158/77 07/24 1806 97.8 101 20 158/77 96 Nasal 4.0L Cannula 07/24 1800 Nasal 2.0L Cannula Intake & Output 07/25 1600 07/25 0800 07/25 0000 Intake Total 240 600 Output Total 300 Balance 240 300 Intake, IV 100 Intake, Oral 240 500 Output, Urine 300 Patient 234 lb 241 lb Weight Exam Other Physical Findings: Generally - Awake, alert Head and neck - normocephalic, atraumatic, EOMI grossly intact Cardiovascular - S1, S2 Lungs -bilateral rhonchi that are scattered Abdomen - Bowel sounds positive, soft, non-tender Extremities - without edema Results Last 24 Hrs of Lab Results: Laboratory Tests 07/25/17 0636: Anion Gap 16, Estimated GFR 12 L, BUN/Creatinine Ratio 10.7, Total Bilirubin 7.9 H, Direct Bilirubin 7.2 H, AST 96 H, ALT 104 H, Alkaline Phosphatase 375 H, Total Protein 6.1 L, Albumin 3.4 L, CBC w Diff NO MAN DIFF REQ, RBC 2.55 L, MCV 93.8, MCH 30.5, RDW 17.6 H, MPV 8.1, Gran % 91.7 H, Lymphocytes % 4.0 L, Monocytes % 4.2, Eosinophils % 0.1, Basophils % 0, Absolute Granulocytes 6.8 H, Absolute Lymphocytes 0.3 L, Absolute Monocytes 0.3, Absolute Eosinophils 0, Absolute Basophils 0, PUBS MCHC 32.5 L 07/24/17 2245: PT 12.5, INR 1.19 H Impression/Plan Impression/Plan Impression/Plan: Impressoin 87 year old man * elevated lfts, jaundice * dyapnea - influenza - possible bronchiolitis/infectious reactive airways * nasra declines cpap therapy * esrd on hd * chronic hypoxemic and hypercarbic respiratory failure Plan -Reduce IV Solu-Medrol 40 mg every 12 -TRC/Nebs - goal spo2 >90% -f/u gastroenterology recs, f/u and trend lfts, d/w GI what imaging modality if any would be recommended -f/u cardiology recs -tamiflu course for influenza A -HD per nephrology DVT prophylaxis at all times
[2017-07-25 14:51] VITALS: BP 157/88
[2017-07-25 22:29] VITALS: BP 150/80
--- NOTE | 2017-07-26 04:58 | Event Note ---
Event Note Event Note: S:Patient desaturated to 80s B:MHx of coronary artery disease s/p CABG, colon cancer status post resection and anastomosis, HFpEF uses nocturnal O2 as needed, moderate , ROBYN not on CPAP , chronic back pain w/ neurostimulator in place, ESRD on HD. He is currently being treated for influenza, syncope likely because of dehydration, abnormal liver chemistries of unclear etiology (likely secondary to infection) A/P Went in and evaluated the patient. -reports minor shortness of breath denies any other symptoms. -he is alert and oriented 3. S1 S2 lungs wheezes bilaterally. Bibasilar crackles. -respiratory paged -NC increased from 3 to 6L Patient did not receive dialysis yesterday. Might have fluid build up in lungs. -CXR orderd- results pending -Patient is currently satting at 95% on 6 L. -Will sign out to the morning team
[2017-07-26 06:10] VITALS: BP 176/84
--- NOTE | 2017-07-26 06:38 | RADIOLOGY REPORT ---
EXAMINATION: XR PORTABLE CHEST CLINICAL INFORMATION: Fluid overload, on dialysis COMPARISON: 07/23/2017 TECHNIQUE: Portable frontal view of the chest was obtained. FINDINGS: There is redemonstrated left hemidiaphragm elevation. There is increased left basilar opacification which may represent a combination of pleural effusion and underlying airspace disease. Mild interstitial prominence is noted bilaterally. No pneumothorax is seen. The cardiac silhouette remains enlarged. Sternal wires are present. IMPRESSION: Increased left basilar opacification which may represent a combination of pleural effusion and underlying atelectasis versus consolidation. Mild interstitial prominence may represent mild interstitial edema.
[2017-07-26 07:52] VITALS: BP 176/80
--- NOTE | 2017-07-26 08:10 | PN- Housestaff ---
Evelyn Venegas 07/26/17 0810: Subjective Follow-up For: Flu Cholestasis Syncopal episode End-stage renal disease on dialysis Subjective: Patient was seen and examined this morning. He was sitting comfortably on bed without any complaints. His oxygen requirement went up from 3 L to 6 L overnight. On examination he found to be slightly fluid overload. He denied any chest pain or worsening shortness of breath Review of Systems Constitutional: Denies: diaphoresis, fever. Cardiovascular: Denies: chest pain, orthopena. Respiratory: Denies: hemoptysis, short of breath. Gastrointestinal: Denies: diarrhea, distention. Musculoskeletal: Denies: joint swelling, muscle pain. Objective Last 24 Hrs of Vital Signs/I&O Vital Signs Date Time Temp Pulse Resp B/P B/P Pulse O2 O2 Flow FiO2 Mean Ox Delivery Rate 07/26 0916 22 94 Nasal 4.0L Cannula 07/26 0916 20 96 Nasal 6.0L Cannula 07/26 0850 96 Nasal 6.0L Cannula 07/26 0834 96 20 152/80 95 Nasal 6.0L Cannula 07/26 0800 93 Nasal 6.0L Cannula 07/26 0752 97.9 110 22 176/80 93 Nasal 6.0L Cannula 07/26 0749 110 176/84 07/26 0610 97.7 110 20 176/84 92 07/26 0358 94 07/26 0340 20 94 Nasal 6.0L Cannula 07/26 0000 Nasal 3.0L Cannula 07/25 2229 97.9 108 20 150/80 90 Nasal 3.0L Cannula 07/25 1645 96 Nasal 3.0L Cannula 07/25 1600 93 Nasal 3.0L Cannula 07/25 1451 97.7 85 20 157/88 94 Nasal 3.0L Cannula Intake & Output 07/26 1600 07/26 0800 07/26 0000 Intake Total 250 1000 Output Total 400 600 Balance -150 400 Intake, IV 10 Intake, Oral 240 1000 Number 0 1 Bowel Movements Output, Urine 400 600 Patient 251 lb Weight Physical Exam General Appearance: Alert, Oriented X3, Cooperative, No Acute Distress Cardiovascular: Regular Rate, Normal S1, Normal S2 Lungs: mild bilateral basal crackles Abdomen: Soft, No Tenderness Neurological: Normal Speech, Normal Tone Extremities: trace edema Current Medications: Current Medications Sig/Tiffanie Start time Last Medication Dose Route Stop Time Status Admin Albuterol Sulfate 3 ML EVERY 4 HRS/AWAKE 07/22 1200 AC 07/26 INH 1329 Amlodipine Besylate 10 MG DAILY 07/22 1117 AC 07/26 PO 0749 Aspirin 81 MG DAILY 07/20 1000 AC 07/25 PO 0918 Cholecalciferol 1,000 IU DAILY 07/20 1000 AC 07/25 PO 0918 Docusate Sodium 100 MG BID 07/22 1115 AC 07/25 PO 2152 Duloxetine HCl 30 MG DAILY 07/22 1116 AC 07/25 PO 0918 Epoetin Earnest 2,000 UNIT TUES THURS SAT 07/20 1424 AC 07/20 IV 1716 Gabapentin 300 MG QPM 07/20 2200 AC 07/25 PO 2152 Levothyroxine Sodium 0.05 MG DAILY AC 07/26 0700 AC 07/26 PO 0459 Lidocaine 2 PAT Q24H 07/21 1630 AC 07/25 EXT 1745 Lidocaine 1 ANI DAILY NEEDED PRN 07/20 1015 AC TOP Lidocaine/Prilocaine 1 ANI DAILY PRN 07/20 1315 AC 07/24 TOP 1213 Methylprednisolone 40 MG Q12 07/25 2200 AC 07/26 IV 0906 Methylprednisolone 40 MG Q8 07/24 1400 DC 07/25 IV 0528 Pantoprazole Sodium 40 MG DAILY 07/20 1000 AC 07/26 IV 0905 Polyethylene Glycol 17 GM DAILY AC 07/22 1118 AC 07/26 PO 0458 Senna 187 MG DAILY 07/22 1115 AC 07/23 PO 0924 Sevelamer Carbonate 800 MG WM 07/20 0800 AC 07/26 PO 1324 Vitamin E 400 IU DAILY 07/20 1000 AC 07/25 PO 0918 Last 24 Hrs of Lab/Jamel Results Last 24 Hrs of Labs/Mics: Laboratory Tests 07/26/17 0653: Anion Gap 18 H, Estimated GFR 9 L, BUN/Creatinine Ratio 12.5, Total Bilirubin 8.0 H, Direct Bilirubin 7.3 H, AST 83 H, ALT 109 H, Alkaline Phosphatase 372 H, Total Protein 6.2 L, Albumin 3.5, CBC w Diff MAN DIFF ORDERED, RBC 2.58 L, MCV 93.2, MCH 30.8, RDW 17.1 H, MPV 8.1, Gran % 91.1 H, Lymphocytes % 3.9 L, Monocytes % 4.9, Eosinophils % 0, Basophils % 0.1, Absolute Granulocytes 8.3 H, Segmented Neutrophils 88 H, Absolute Lymphocytes 0.4 L, Lymphocytes 5 L, Monocytes 6, Absolute Monocytes 0.4, Absolute Eosinophils 0, Absolute Basophils 0, Metamyelocytes 1, Nucleated RBCs 1 H, Platelet Estimate VERIFIED BY SMEAR, Polychromasia 1+, Hypochromic-Microcytic 1+, Basophilic Stippling 1+, Anisocytosis 1+, Stomatocytes 1+, PUBS MCHC 33.1 Assessment/Plan Assessment: Mr Martinez has a PMHx of coronary artery disease s/p CABG, colon cancer status post resection and anastomosis, HFpEF uses nocturnal O2 as needed, moderate , ROBYN not on CPAP, chronic back pain w/ neurostimulator in place, ESRD on HD was brought in after he was found to be hypoxemic 84% while he was sitting in his chair, and subsequently had a syncopal episode likely from dehydration. He was also found to have influenza and was started on Tamiflu. Plan: 1. Influenza- He was started on oseltamivir and he completed 5 days. 2. Abnormal liver chemistries- Patient was seen by gastroenterology and at this point his elevated liver enzymes are most likely cholestatic transaminitis and was because of underlying infectious histology. We will continue watching LFTs as they are trending down. We continue holding his statins as well. Patient is not a candidate for ERCP. After discussing with gastroenterology CA 199 was sent and came back [phone]. I get called from Dr. Avina and he spoke with the family, patient and Dr. Currie and decision was made to transfer him to [place] tomorrow for further investigation and interventions. 3. Syncope- Likely from dehydration. - Was evaluated by the manager video games. - Echocardiogram done on 07/20 showed aortic stenosis (moderate). 3. ESRD on HD - He undergoes dialysis M/W/F - Renal dialysis diet. 4. HTN On home regimen of antihypertensives 5. GI bleed- - H&H stable - Monitor closely. Problem List: 1. Cholelithiasis 2. Influenza A 3. Elevated LFTs Pain Ratin Pain Location: na Pain Goal: Remain pain free Pain Plan: tylenol Tomorrow's Labs & Rationales: beSofía Rousseau MD 07/26/17 1227: Attending MD Review Statement Attending Statement Attending MD Statement: examined this patient, discuss w/resident/PA/COMBATANT DIVER QUALIFIED, agreed w/resident/PA/COMBATANT DIVER QUALIFIED, reviewed EMR data (avail), discussed with nursing, discussed with case mgmt, reviewed images, amended to note Attending Assessment/Plan: Patient seen and examined, he himself denies any shortness of breath. This morning he became hypoxic and required more oxygen. Chest x-ray obtained this morning which shows the following. Increased left basilar opacification which may represent a combination of pleural effusion and underlying atelectasis versus consolidation. Vital Signs Date Time Temp Pulse Resp B/P B/P Pulse O2 O2 Flow FiO2 Mean Ox Delivery Rate 07/26 09 22 94 Nasal 4.0L Cannula 07/26 0916 20 96 Nasal 6.0L Cannula 07/26 0850 96 Nasal 6.0L Cannula 07/26 0834 96 20 152/80 95 Nasal 6.0L Cannula 07/26 0800 93 Nasal 6.0L Cannula 07/26 0752 97.9 110 22 176/80 93 Nasal 6.0L Cannula 07/26 0749 110 176/84 07/26 0610 97.7 110 20 176/84 92 07/26 0358 94 07/26 0340 20 94 Nasal 6.0L Cannula 07/26 0000 Nasal 3.0L Cannula 07/25 2229 97.9 108 20 150/80 90 Nasal 3.0L Cannula 07/25 1645 96 Nasal 3.0L Cannula 07/25 1600 93 Nasal 3.0L Cannula 07/25 1451 97.7 85 20 157/88 94 Nasal 3.0L Cannula on exam aox3, nad. cv; s1,s2 rrr resp; decreased bs at left base. abd; soft, nt, bs+ ext; no edema. Laboratory Tests 07/26 0653 Chemistry Sodium (137 - 145 mmol/L) 140 Potassium (3.5 - 5.1 mmol/L) 5.1 Chloride (98 - 107 mmol/L) 99 Carbon Dioxide (22 - 30 mmol/L) 23 Anion Gap (5 - 16) 18 H BUN (9 - 20 mg/dL) 74 H Creatinine (0.7 - 1.2 mg/dL) 5.9 *H Estimated GFR (>60 ml/min) 9 L BUN/Creatinine Ratio (7 - 25 %) 12.5 Total Bilirubin (0.2 - 1.3 mg/dL) 8.0 H Direct Bilirubin (< 0.4 mg/dL) 7.3 H AST (17 - 59 U/L) 83 H ALT (21 - 72 U/L) 109 H Alkaline Phosphatase (< 127 U/L) 372 H Total Protein (6.3 - 8.2 g/dL) 6.2 L Albumin (3.5 - 5.0 g/dL) 3.5 Hematology CBC w Diff MAN DIFF ORDERED WBC (4.8 - 10.8 /CUMM) 9.1 RBC (4.70 - 6.10 /CUMM) 2.58 L Hgb (14.0 - 18.0 G/DL) 7.9 L Hct (42 - 52 %) 24.0 L MCV (80.0 - 94.0 FL) 93.2 MCH (27.0 - 31.0 PG) 30.8 RDW (11.5 - 14.5 %) 17.1 H Plt Count (130 - 400 /CUMM) 257 MPV (7.4 - 10.4 FL) 8.1 Gran % (42.2 - 75.2 %) 91.1 H Lymphocytes % (20.5 - 51.1 %) 3.9 L Monocytes % (1.7 - 9.3 %) 4.9 Eosinophils % (0 - 5 %) 0 Basophils % (0.0 - 2.0 %) 0.1 Absolute Granulocytes (1.4 - 6.5 /CUMM) 8.3 H Segmented Neutrophils (42.2 - 75.2 %) 88 H Absolute Lymphocytes (1.2 - 3.4 /CUMM) 0.4 L Lymphocytes (20.5 - 51.1 %) 5 L Monocytes (1.7 - 9.3 %) 6 Absolute Monocytes (0.10 - 0.60 /CUMM) 0.4 Absolute Eosinophils (0.0 - 0.7 /CUMM) 0 Absolute Basophils (0.0 - 0.2 /CUMM) 0 Metamyelocytes (0.0 - 1.0 %) 1 Nucleated RBCs (0.0 - 0.0 /100WBC) 1 H Platelet Estimate (ADEQUATE) VERIFIED BY SMEAR Polychromasia 1+ Hypochromic-Microcytic 1+ Basophilic Stippling 1+ Anisocytosis 1+ Stomatocytes 1+ PUBS MCHC (33.0 - 37.0 G/DL) 33.1 A/P; 87 y/o M with pmh sig for CKD on hemodialysis Monday, Monday (he missed Hemodialysis session today), aortic stenosis, heart failure with preserved ejection fraction, coronary artery disease status post CABG 5, pulmonary hypertension, hyperlipidemia, hypertension, hypothyroidism, osteoarthritis, colonic cancer status post resection and anastomosis, CH hypercarbic resp failure, and obstructive sleep apnea on nocturnal oxygen supplementation admitted with abnl LFTs, + Influenza. Patient will be seen by Pulm. Pt to get HD today. Likely resp status will improve after HD. Please d/w pulm if any further w/u such as CT chest needed to look for this area atalectasis. Completed Tamiflu. Continue TRC Nebs. PT recommends Home services. Continue the rest of meds. Further GI w/u as outpatient. DVT px; ALPS. Pavel likely DC home in next 24 hours if Oxygenation improved.
[2017-07-26 08:22] LABS: ABSOLUTE BASOPHIL COUNT 0 /CUMM (0.0-0.2); ABSOLUTE EOSINOPHIL COUNT 0 /CUMM (0.0-0.7); ABSOLUTE GRANULOCYTE CT 8.3 /CUMM (1.4-6.5); ABSOLUTE LYMPH COUNT 0.4 /CUMM (1.2-3.4); ABSOLUTE MONOCYTE COUNT 0.4 /CUMM (0.10-0.60); BASOPHIL % 0.1 % (0.0-2.0); EOSINOPHIL % 0 % (0-5); GRANULOCYTE % 91.1 % (42.2-75.2); MEAN CORPUSCULAR HGB 30.8 PG (27.0-31.0); MEAN CORPUSCULAR HGB CONC 33.1 G/DL (33.0-37.0); MEAN CORPUSCULAR VOLUME 93.2 FL (80.0-94.0); MEAN PLATELET VOLUME 8.1 FL (7.4-10.4); PLATELET COUNT 257 /CUMM (130-400); RBC DISTRIBUTION WIDTH 17.1 % (11.5-14.5); RED BLOOD CELL CT 2.58 /CUMM (4.70-6.10); WHITE BLOOD CELL COUNT 9.1 /CUMM (4.8-10.8)
[2017-07-26 08:34] VITALS: BP 152/80
--- NOTE | 2017-07-26 14:11 | PN- Pulmonary ---
Subjective HPI/Critical Care Issues: Patient seen and examined this morning. White blood cell count is 9.1 he is saturating 94% on 4 L nasal cannula improved from 6 L. Objective Current Medications: Current Medications Sig/Tiffanie Start time Last Medication Dose Route Stop Time Status Admin Albuterol Sulfate 3 ML EVERY 4 HRS/AWAKE 07/22 1200 AC 07/26 INH 1329 Amlodipine Besylate 10 MG DAILY 07/22 1117 AC 07/26 PO 0749 Aspirin 81 MG DAILY 07/20 1000 AC 07/25 PO 0918 Cholecalciferol 1,000 IU DAILY 07/20 1000 AC 07/25 PO 0918 Docusate Sodium 100 MG BID 07/22 1115 AC 07/25 PO 2152 Duloxetine HCl 30 MG DAILY 07/22 1116 AC 07/25 PO 0918 Epoetin Earnest 2,000 UNIT TUES THURS SAT 07/20 1424 AC 07/20 IV 1716 Gabapentin 300 MG QPM 07/20 2200 AC 07/25 PO 2152 Levothyroxine Sodium 0.05 MG DAILY AC 07/26 0700 AC 07/26 PO 0459 Lidocaine 2 PAT Q24H 07/21 1630 AC 07/25 EXT 1745 Lidocaine 1 ANI DAILY NEEDED PRN 07/20 1015 AC TOP Lidocaine/Prilocaine 1 ANI DAILY PRN 07/20 1315 AC 07/24 TOP 1213 Methylprednisolone 40 MG Q12 07/25 2200 AC 07/26 IV 0906 Methylprednisolone 40 MG Q8 07/24 1400 DC 07/25 IV 0528 Pantoprazole Sodium 40 MG DAILY 07/20 1000 AC 07/26 IV 0905 Polyethylene Glycol 17 GM DAILY AC 07/22 1118 AC 07/26 PO 0458 Senna 187 MG DAILY 07/22 1115 AC 07/23 PO 0924 Sevelamer Carbonate 800 MG WM 07/20 0800 AC 07/26 PO 1324 Vitamin E 400 IU DAILY 07/20 1000 AC 07/25 PO 0918 Vital Signs & I&O Last 24 Hrs of Vitals and I&O: Vital Signs Date Time Temp Pulse Resp B/P B/P Pulse O2 O2 Flow FiO2 Mean Ox Delivery Rate 07/26 915 22 94 Nasal 4.0L Cannula 07/26 0916 20 96 Nasal 6.0L Cannula 07/26 0850 96 Nasal 6.0L Cannula 07/26 0834 96 20 152/80 95 Nasal 6.0L Cannula 07/26 0800 93 Nasal 6.0L Cannula 07/26 0752 97.9 110 22 176/80 93 Nasal 6.0L Cannula 07/26 0749 110 176/84 07/26 0610 97.7 110 20 176/84 92 07/26 0358 94 07/26 0340 20 94 Nasal 6.0L Cannula 07/26 0000 Nasal 3.0L Cannula 07/25 2229 97.9 108 20 150/80 90 Nasal 3.0L Cannula 07/25 1645 96 Nasal 3.0L Cannula 07/25 1600 93 Nasal 3.0L Cannula 07/25 1451 97.7 85 20 157/88 94 Nasal 3.0L Cannula Intake & Output 07/26 1600 07/26 0800 07/26 0000 Intake Total 250 1000 Output Total 400 600 Balance -150 400 Intake, IV 10 Intake, Oral 240 1000 Number 0 1 Bowel Movements Output, Urine 400 600 Patient 251 lb Weight Exam Other Physical Findings: Generally - Awake, alert Head and neck - normocephalic, atraumatic, EOMI grossly intact Cardiovascular - S1, S2 Lungs -bilateral rhonchi that are scattered Abdomen - Bowel sounds positive, soft, non-tender Extremities - without edema Results Last 24 Hrs of Lab Results: Laboratory Tests 07/26/17 0653: Anion Gap 18 H, Estimated GFR 9 L, BUN/Creatinine Ratio 12.5, Total Bilirubin 8.0 H, Direct Bilirubin 7.3 H, AST 83 H, ALT 109 H, Alkaline Phosphatase 372 H, Total Protein 6.2 L, Albumin 3.5, CBC w Diff MAN DIFF ORDERED, RBC 2.58 L, MCV 93.2, MCH 30.8, RDW 17.1 H, MPV 8.1, Gran % 91.1 H, Lymphocytes % 3.9 L, Monocytes % 4.9, Eosinophils % 0, Basophils % 0.1, Absolute Granulocytes 8.3 H, Segmented Neutrophils 88 H, Absolute Lymphocytes 0.4 L, Lymphocytes 5 L, Monocytes 6, Absolute Monocytes 0.4, Absolute Eosinophils 0, Absolute Basophils 0, Metamyelocytes 1, Nucleated RBCs 1 H, Platelet Estimate VERIFIED BY SMEAR, Polychromasia 1+, Hypochromic-Microcytic 1+, Basophilic Stippling 1+, Anisocytosis 1+, Stomatocytes 1+, PUBS MCHC 33.1 Impression/Plan Impression/Plan Impression/Plan: Impressoin 87 year old man * elevated lfts, jaundice * dyapnea - influenza - possible bronchiolitis/infectious reactive airways * nasra declines cpap therapy * esrd on hd * chronic hypoxemic and hypercarbic respiratory failure Plan -keep Solu-Medrol 40 mg every 12 - plan to reduce to PO tomorrow -TRC/Nebs - goal spo2 >90% -f/u gastroenterology recs, f/u and trend lfts, d/w GI what imaging modality if any would be recommended -f/u cardiology recs -s/p tamiflu course for influenza A -HD per nephrology DVT prophylaxis at all times
[2017-07-26 14:59] VITALS: BP 141/90
--- NOTE | 2017-07-26 16:58 | PN- Gastroenterology ---
Assessment/Plan Assessment/Recommendations: 87 y/o male, full code, with numerous co-morbidities, remotely seen by myself in inpt GI consultation 10/02/15, with intermittent OB+ stool, not c/w outpt PillCam (*see below), post multiple EGD/colonoscopy/push enteroscopy, CKD & HD- dependent since spring 2016 (post LUE AVF 12/01/16), who presented to the [facility] 07/19/17, BIBA with syncope (witnessed by his , Andrea), hypoxia, urinary & fecal incontinence (no witnessed seizure), history of falls, fatigue, nasal congestion, symptoms of URI with cough productive of brown sputum, found to be yellow with elevated LFTs. He denied any fevers, chills, rashes, myalgias , or acute arthralgias (aside from DJD). He had mild diarrhea 1 day [employer], treated with Imodium. When he was incontinent, the stools were "dark" without gross BRB or hematemesis. The stools were OB positive in the ER, without fresh blood. They were later dark brown, trace OB positive, on my digital exam . Upon arrival to the [facility] ER 07/19/17 at 2:06 p.m., BP 92/50, P 76, R 20, T 97.5, O2 sat RA 90%, improving to 95% on 2L nc. His BP improved after IVF. He last had HD 07/17/17 & missed his HD slot 07/19/17, due to the above. He denied any nausea, vomiting, abdominal pain, early satiety, constipation, obstipation, tenesmus, or rectal bleeding. The mild diarrhea had resolved. He was on baby aspirin 81 mg daily. He denied any NSAIDs or Plavix. Regarding the dark stool, he was on iron, although apparently this was switched to IV Fe & EPO. He was not on any Pepto-Bismol. He was told he looked yellow at HD on . His GB was intact. He denied any dark urine, light stool, or pruritus. He currently denied any confusion, although he was slightly confused after the syncopal event, according to his . There was no documented head trauma or abdominal trauma. His GI ROS from above & below were otherwise negative. The patient was taking approximately 2 g of Tylenol daily. He had been off Percocet for some time. He denied any new medications or herbal medications, aside from low dose Vitamin E 400 IU daily, rxd by renal in 06/2017. He denied any additional OTC medications. He was subsequently found to have 07/19/17: *influenza type A His outpatient medication list included baby ASA, Amlodipine, Colace, Labetalol, vitamin D, isosorbide, Renvela, TORIBIO, Senokot, Colace, Atorvastatin, Vit E, Lidocaine patch, Tylenol, & Miralax. He denied any history of viral hepatitis. Apparently, he was recently started on Hep A & B vaccination series. He denied any EtOH, illicit street drugs, or IVDA. He had been transfused in the past. There was no gross hematuria, epistaxis, gum bleeding, or hemoptysis. He denied any chest pain or shortness of breath. Regarding the LFTs, there is no family history of any inherited liver disease or IBD. There is a positive family history of colon CA (pt's M- 58), & positive family history of colon adenoma (pt's dtr, Jessica). The patient's other numerous issues include prior rx narcotic-induced encephalopathy, which cleared after Narcan, chronic left chest wall pain post shingles, *chronic Fe def anemia, HTN, HLD, & ASHD post CABG 5 in 2000, TANGIR[place]Q, history of complex right-sided hepatic cysts, chronic low back pain with indwelling neurostimulator low back 05/2015, neuropathy, history of sciatica, diverticulosis coli, DJD, knee replacement, surgery, hypothyroid, carpal repair, , CHF, pulmonary HTN, ROBYN on O2-2L nc hs. 09/10/07: EGD- mild esophagitis, J-shaped stomach, H. pylori negative gastritis 10/24/07: Sigmoid resection by Dr. 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 There was no residual colon cancer found surgically, with negative lymph nodes. 09/25/07: PET- negative. 04/27/09: Colonoscopy to cecum- rectal telangiectasias of unknown etiology with clean anastomosis at 23 cm, left-sided diverticula plus removal of 2 benign tubular adenomas. 12/11/14: CEA 1.7, Fe sat 2.4%, ferritin 10.2. 12/19/14: *low IgA 78, tTG Ab- neg, DGP Ab- neg. 01/08/15: *Combined upper endoscopy to the third portion of the duodenum with biopsy, plus colonoscopy to the cecum with biopsies- normal esophageal mucosa with a minimally irregular Z-line at 40 cm, and a somewhat J-shaped stomach. Biopsy of 2 x 2 mm excrescences at the lesser curvature of the stomach- mild chronic fundic gastritis, H. pylori negative. Random biopsies of the second and third portions of the duodenum- no significant villous blunting (nothing on biopsies to suggest celiac sprue), mild chronic duodenitis, slightly nodular duodenal bulb showing Renzo gland hypertrophy and focal gastric metaplasia. Moderate left-sided diverticula, post sigmoid resection with a clean anastomosis at 23 cm, multiple sessile 5 mm polyps removed via cold biopsies, including one from the right colon showing benign tubular adenoma, two from the transverse colon showing benign sessile serrated polyp/adenoma, biopsy of the left colon unremarkable, biopsy of a small rectal polyp at 10 cm- benign hyperplastic polyp with focal sessile serrated polyp/adenoma. 05/30/15: normal LFTs, decreased ferritin 11.5, iron 24, TIBC 415, Fe sat 5.8%. 07/22/2015: normal SPEP/IPEP. 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 10/02/15: EGD to jejunum (160 cm from the incisors) with pedicolon- 1. Superficial antral erosions, without any active bleeding. 2. Superficial erosions in the duodenal bulb, without any active bleeding. 3. Clot washed clear from the post bulbar region, with normal-appearing underlying mucosa. 4. Slightly J-shaped stomach. 5. Otherwise, negative study to the jejunum. [The patient was endoscoped 3 times, with the single channel scope, the double channel scope, and the pediatric colonoscope from above, down to the jejunum, 160 cm from the incisors]. *The pt subsequently refused outpt PillCam multiple times (rule out angiodysplasias associated with CKD and/or ). The pt was most recently admitted to [facility] 10/28/16 - 11/08/16, for acute on chronic respiratory failure, multifactorial volume overload, CKD, & normocytic anemia-> EPO. 09/06/16: *HIV- neg. 09/07/16: *Hep A Ab, Hep Bs Ag, Hep B core Ab, Hep C Ab- all neg. 07/19/17: Admission labs- WBC 4.7, H/H 8.9/25.6, MCV 90.6, RDW 17.6, PLT 239, PT 14.1, INR 1.35, PTT 38, glucose 111, BUN/Cr 81/7.4, GFR 7, Na 141, K 4.9, HCO3 19, AG 21, lactate 1.1, Ca 8.2, amylase/lipase 137/353, albumin 3.4, globulin 2.7, *TBil 9.3, DBil 8.6, alk phos 354, AST 98, ALT 110, nl NH3 30, [Tylenol] < 10; Fe 45 (? no TIBC), ferritin 497, BNP 25,300, *troponin- pending, *Hep A, B, & C serologies- pending. 07/19/17: *Rapid viral influenza A/B: + influenza Type A. 07/19/17: EKG- NSR @ 76, 1st degree AVB, [place] .261, normal axis (V3 missing), NSST flattening. 07/19/17: XRY-PORTABLE CHEST XRAY- No definite evidence of pulmonary edema at this time. Elevated left hemidiaphragm, chronic. Mediastinum is difficult to assess with this technique. 07/19/17: CT CHEST, ABDOMEN AND PELVIS WITHOUT CONTRAST- 1. Asymmetric elevation of left diaphragm compared to right. Atelectasis at left lung base. No acute change of the chest. 2. Stable cystic lesion inferior right lobe of liver. No suspicious liver lesion. No ascites. 3. Cholelithiasis without acute change of gallbladder wall. No dilated ducts. 4. Atrophic right kidney. Bilateral renal cysts. No acute abnormality of kidneys. 5. Diverticulosis of colon without acute change of bowel. Status post prior surgical anastomosis at sigmoid colon intact. 6. Stable left adrenal lesion. 7. Small B/L IH. 8. DJD. Dextroscoliosis mid-L spine. 07/19/17: RUQ ABDOMINAL ULTRASOUND (LIMITED)- Liver of mildly heterogeneous echogenicity. No intrahepatic biliary ductal dilation. CBD 4 mm. Old 4.8 cm cyst within the right lobe with peripheral calcification. Cholelithiasis without evidence of cholecystitis. 07/19/17: CT HEAD WO IV CONTRAST- No evidence for acute intracranial injury. Age-appropriate appearance of the brain. Upon completion of the 07/19/17: GI consult, I felt that most likely, the patient's LFTs, which were more cholestatic > transaminitis, were most likely secondary to some systemic process, probably infectious in nature. The 07/19/17: *Rapid viral influenza A/B: + influenza Type A was noted, & perhaps this is the source. The patient was on no new medications to cause the above. He was on Atorvastatin, which usually causes more of a transaminitis than cholestasis. Amlodipine can cause hepatitis. The hypotension may have contributed to the LFTs , as well. I felt that his cholelithiasis was incidental in nature, without any cholecystitis, choledocholithiasis, or dilated ducts. His hepatic cyst was incidental as well. I felt that the yield of an MRCP would be low, and the patient has an implanted neurostimulator, probably prohibiting this. I did not feel that the risk:benefit ratio warranted the more invasive ERCP. Admission [ Tylenol] < 10. *With regards to the anemia, which is chronic in nature, on my exam he had brown , trace OB positive stool. He has had an extensive GI workup for the above, including relatively recent EGD/colonoscopy/push enteroscopy to the jejunum. The patient was repeatedly noncompliant with a suggested outpt PillCam. He certainly could have small bowel angiodysplasias, which could be associated with CKD and/or (Heyde's syndrome). Clinically, I did not feel that he was actively GI bleeding to the point that would warrant a repeat EGD. He was hypotensive, which resolved. I did not think this was from the mildly OB positive stool, but rather from dehydration and possible sepsis. 07/19/17: *Viral culture- pending. 07/19/17: *Hep A Ab, Hep Bs Ag, Hep B core Ab, Hep C Ab- all negative. 07/20/17: 12:20 a.m.- WBC 5.0 (87S/8L/5M), H/H 8.8/26.2, MCV 92.4, RDW 16.8, PLT 187, 07/20/17: 5:15 a.m.- WBC 4.7, H/H 8.8/26.7, MCV 92.8, RDW 16.9, PLT 191, PT 14.7 , INR 1.40, glucose 88, BUN/Cr 87/8.4, GFR 6, Na 140, K 5.5, HCO3 19, AG 22, Ca 8.3, PO4 7.2, Mg 1.7, alb 3.4, TBil 5.6, alk phos 314, AST 69, ALT 102, CK 127, B12 > 1000, troponin- neg x 2. *The patient was started on Tamiflu 07/20/17. The patient's Hgb remained relatively stable for him. His LFTs were improving. Numerous consultants' notes appreciated (i.e.- ICU, renal, cardiology, etc.). The patient's implantable neurostimulator was not compatible with MRCP. As his LFTs were coming down, I did not push for ERCP. He had no signs of cholangitis, nor any dilated ducts. Again, ? if LFTs were rx in nature to a systemic process, such as influenza A. He remained on EPO. Pantoprazole was continued. Atrovastatin was held. Ibuprofen was never given, & D/C'd. He remained on baby ASA. *As of 07/20/17, the patient remained hemodynamically stable & currently afebrile (T 97.2, Tm 99.3), with O2 sat 2L nc- 97%. He received HD 07/20/17, as he missed his routine HD 1 day prior. He denied any over GI bleeding (dark brown stool, trace OB+ on my 07/19/17: digital exam). He denied any subjecive fevers, chills, abdominal pain, nausea, vomiting, or diarrhea. He remained with a cough productive of brown sputum. He had no CP or SOB. His fatigue was improving & he was tolerating clears po. 07/20/17: S. 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 *As of 07/21/17, the patient remained hemodynamically stable in the ICU, with O2 sat 2L nc- 93%. T 98.7 with Tm 99.9, on Tamiflu. Serologic testing for atypical pneumonia- negative. There was no overt GI bleeding. The patient was getting HD. He had tolerated clears po. He was tentatively made NPO by the ICU team, as his bilirubin had bumped up. He remained completely asymptomatic from a GI perspective, without any abdominal pain, nausea, vomiting, chills, confusion, or pruritus. He remained yellow. Recent imaging studies, including CT/sono, without dilated ducts. Again, implantable neurostimulator prohibited MRCP. His outpt Atorvastatin had been discontinued. He had a dry cough, with some nasal congestion. He denied any chest pain or shortness of breath. *At the moment, I still felt that the patient's LFTs were probably reactive in nature, due to some systemic process, possibly the influenza A. His cholelithiasis most likely is incidental in nature. With the magnitude of his predominantly elevated direct bilirubin, I would expect dilated ducts on imaging studies, which he has not had. Unfortunately, MRCP could not be performed because of an implantable neurostimulator. At present, I feel that the risk: benefit ratio does not want an invasive ERCP. He had a completely benign abdominal exam. 07/22/17: XRY-PORTABLE CHEST XRAY- Persistent marked elevation of the left hemidiaphragm with slight increased linear atelectasis at the left base and minimal atelectasis at the right base. No evidence of pulmonary edema. 07/22/17: US-LIMITED ABDOMEN- Suboptimal evaluation due to patient's body habitus. GB. CBD, & liver poorly visualized. Questionable subtle dilated IHD left lobe. Known stable cystic lesion inferior aspect of right lobe, dating back to at least 09/26/15. Alternative imaging modality such as MRCP may be considered for further full detailed evaluation, if clinically appropriate. DICTATED BY: Sunil Hood MD [As previously stated in my initial GI consult of 07/19/17, the patient *can't have MRCP due to implantable neurostimulator]. 07/23/17: XRY-PORTABLE CHEST XRAY- No significant change from 07/22/2017. Redemonstrated left hemidiaphragm elevation and suspected bibasilar atelectasis. *Weekend events & multiple notes noted. The patient was transferred to General Medicine on the ICU, as per transfer note of 07/22/17. The patient's major issues remain primarily related to his influenza and CO2 retention, with a smaller component of hypoxia. He was placed on BiPAP. He was lethargic the evening of 07/23/17, which improved after BiPAP. His LFTs had fluctuated. Repeat : RUQ sonogram was of very poor quality. *Again, MRCP cannot be done because of the patient's implantable neurostimulator. 07/23/17: 10:50 p.m.- ABL nc- 7.25/52/90/94%, HCO3 23, CO HB 1.7. 07/24/17: 1:35 a.m.- AB% FiO2 (BiPAP 18/, RR 22)- 7.28/51/87/94%, HCO3 23, CO HB 1.0. 07/24/17: 6:33 a.m.-AB% FiO2 (BiPAP 18/12, RR 26)- 7.28/88/101/95%,HCO3 22,CO HB 1.5. 07/23/17: WBC 4.4 (79S/4B/11L/6M/1 NRBC), H/H 8.4/25.7, MCV 93.3, RDW 17.1, PLT 201, BUN/Cr 59/6.1, GFR 9, Na 140, K 5.1, HCO3 24, AG 18, albumin 3.5, globulin 3.1, TBil 7.8, DBil 6.9, alk phos 425, AST 85, ALT 101, NH3 35. *As of 07/24/17, 152/84, P 94, R 18, T 98.2, without temperature spike. He was now mentating on BiPAP and A & O x 3. He had no symptoms referable to the GI tract or liver, and was just yellow. He had no pruritus, abdominal pain, nausea , vomiting, diarrhea, overt GI bleeding, melena, fevers, chills, recurrent syncope, or confusion. The patient is due for HD today, as his respiratory status allows. IV Solu-Medrol 40 mg Q12h had been added by the ICU/pulmonary team 07/23/17. He had no CP, but remained SOB, with a dry cough. *Tamiflu was completed on 07/24/17, post 5 days tx. 07/24/17: ABG (FiO2 35%/RR 26/BiPAP 18/12): 7.28/48/96/96%/HCO3 22, CO HB 0.9 07/24/17: WBC 7.9, H/H 8.0/24.4, MCV 93, RDW 16.6, PLT 235, PT 12.5, INR 1.19, BUN/Cr 87/7.3, GFR 7, Na 140, K 5.1, HCO3 20, AG 22, albumin 3.5, globulin 2.8, TBil 5.1, DBil 4.5, alk phos 364, AST is 21, ALT 82. 07/24/17: *CA 19-9: *5462 (< 34). *As of 07/25/17, patient was doing better respiratory keating. He was off BiPAP, on 3 L nc- 93%, hemodynamically stable & afebrile, T 98.1. He had a mild dry cough. His LFTs were improving. He had uneventful HD on 07/24/17, & did not require transfer back to the ICU. The patient had no complaints referable to his GI tract or liver. He denied any confusion. He was slightly less yellow. He denied any pruritus, overt GI bleeding, melena, fevers, chills, nausea, or vomiting. He was tolerating a renal diet. Numerous liver serologies suggested on my initial 07/19/17: GI consult had not yet been sent. *I later spoke to the medical house staff this afternoon, 07/25/17, who told me that the pt would be going to be D/C tomorrow. 07/19/17: *viral culture- pending. 07/24/17: *CA 19-9: pending. I called the pt's , Andrea, in the pt's room this p.m., & discussed the case with her. The plan is if tumor marker is elevated, to get ERCP/possible EUS. If tumor marker is normal & LFTs persist, outpt liver biopsy. The pt's is to call me for the results. 07/26/17: XRY-PORTABLE CHEST XRAY- Increased left basilar opacification which may represent a combination of pleural effusion and underlying atelectasis versus consolidation. Mild interstitial prominence may represent mild interstitial edema. 07/25/17: WBC 76.4, H/H 7.8/23.9, MCV 93.8, RDW 17.6, PLT 235, BUN/Cr 49/4.6, GFR 12, Na 140, K 4.8, HCO3 24, AG 16, alb 3.4, glob 2.7, TBil 7.9, DBil 7.2, alk phos 375, AST 96, ALT 104. 07/26/17: WBC 9.1 (88S/5L/6M/1 [place]/1 NRBC), H/H 7.9/24, MCV 93.2, RDW 17.1, PLT 257, BUN/Cr 74/5.9, GFR 9, Na 140, K 5.1, HCO3 23, AG 18, alb 3.5, glob 2.7, TBil 8.0, DBil 7.3, alk phos 372, AST 83, ALT 109. The patient remained in [facility] overnight because of recurrent hypoxia and desaturation, which was improving on 07/26/17. He was mildly hypertensive and borderline tachycardic, but persistently afebrile, with O2 sat 4L nc- 93%. He had required O2 6L nc overnight. 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 ampullary lesion. Aside from the patient's respiratory issues probably related to the flu , the patient remained without any GI symptoms or liver symptoms. Aside from being yellow, he denied any pruritus, confusion, increased peripheral edema, fevers, chills, nausea, vomiting, abdominal pain, melena, or overt GI bleeding. He was eating uneventfully. He was awaiting HD later this afternoon. *I previously spoke at length with the patient's , Andrea, & then had a long discussion with both the patient and his , Andrea, on 07/26/17, at the bedside. The patient's is aware that the elevated CA 199 probably implies an underlying malignancy, which has to be better defined. The patient is aware that there is some obstructive process going on with his bile ducts, and he is interested in working this up further. *Assuming this is a malignancy, with the patient's advanced age and numerous comorbidities, he certainly does not appear to be a candidate for a Whipple's procedure. If there is evidence of a cholangio-carcinoma, perhaps he could be a candidate for palliative stenting and brachytherapy. There is a very good chance the patient would have to be intubated for these procedures, keeping in mind his tenuous respiratory status. The patient and his would wish to have ERCP done where EUS could be performed as well, to try to save the patient a sedation and/or intubation. *SUGGEST: *Renal diet as tolerated. Implantable neurostimulator is incompatible with MRCP. With markedly elevated CA 199, etiologies include cholangioCa vs. pancreatic CA vs. ampullary lesion (painless jaundice, CT was w/o IV contrast). Fluctuating yet persistently elevated LFTs, predominantly cholestatic, could be from a ball valve mechanism of a cholangioCa. *At present, the patient's respiratory status is somewhat improved, off BiPAP, on O2 4L nc. Await 07/19/17: *viral cultures. * Continue to hold Atorvastatin for now. HD & EPO (+/- IV Fe), per renal. Serial LFTs, INR, & CBC. *Tamiflu 30 mg after HD x 5d (dosing per renal), completed 07/24/17. *Based on the elevated CA 19-9, at this point, can forego EBV/CMV/mono spot (but would expect more of a transaminitis with this), and/or additional serologies that were advised on admission (i.e.- DORA, AMA, etc.). 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 Follow-up CBC, but no plans for inpatient EGD, unless the patient actively bleeds. T&C 2u PRBC. Keep Hgb > 8 (hx ASHD). Empiric PPI. If anemia worsens, consider holding ASA 81 mg daily, if okay with cardiology. With markedly elevated CA 199, will defer outpt PillCam, which the patient previously refused as part of the workup of his Fe deficiency anemia. *Avoid NSAIDS. DVT prophylaxis with mechanical ALPS. Keep Tylenol to < 2g daily. Avoid hepatotoxins. The above was again discussed with the patient, the patient's , Andrea, the patient's RN, & the medical house staff in great detail. I also spoke with Dr. Currie. Once the patient is more stable pulmonary keating, the patient and his are agreeable to transfer to [facility] for ERCP/EUS, hopefully to be done in 1 sittng, if needed. *Further inpt GI follow- up as needed. Problem List: 1. Elevated LFTs 2. Elevated CA 19-9 level 3. Jaundice 4. Influenza A 5. Syncope 6. Cholelithiasis 7. Hepatic cyst 8. Iron (Fe) deficiency anemia 9. Diverticulosis of colon 10. History of colon cancer 11. Positive occult stool blood test 12. Family history of colon cancer in mother Subjective Subjective: 07/26/17: XRY-PORTABLE CHEST XRAY- Increased left basilar opacification which may represent a combination of pleural effusion and underlying atelectasis versus consolidation. Mild interstitial prominence may represent mild interstitial edema. 07/25/17: WBC 76.4, H/H 7.8/23.9, MCV 93.8, RDW 17.6, PLT 235, BUN/Cr 49/4.6, GFR 12, Na 140, K 4.8, HCO3 24, AG 16, alb 3.4, glob 2.7, TBil 7.9, DBil 7.2, alk phos 375, AST 96, ALT 104. 07/26/17: WBC 9.1 (88S/5L/6M/1 [place]/1 NRBC), H/H 7.9/24, MCV 93.2, RDW 17.1, PLT 257, BUN/Cr 74/5.9, GFR 9, Na 140, K 5.1, HCO3 23, AG 18, alb 3.5, glob 2.7, TBil 8.0, DBil 7.3, alk phos 372, AST 83, ALT 109. The patient remained in [facility] overnight because of recurrent hypoxia and desaturation, which was improving on 07/26/17. He was mildly hypertensive and borderline tachycardic, but persistently afebrile, with O2 sat 4L nc- 93%. He had required O2 6L nc overnight. 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 ampullary lesion. Aside from the patient's respiratory issues probably related to the flu , the patient remained without any GI symptoms or liver symptoms. Aside from being yellow, he denied any pruritus, confusion, increased peripheral edema, fevers, chills, nausea, vomiting, abdominal pain, melena, or overt GI bleeding. He was eating uneventfully. He was awaiting HD later this afternoon. Review of Systems: Full 14 point ROS otherwise N/C, & as per HPI. Review of Systems Constitutional: Reports: malaise & weakness- improving. Denies: chills, diaphoresis, fever, unexplained weight loss. EENTM: Reports:chronic hearing changes. Denies: no symptoms (nasal congestion), blurred vision, double vision, visual changes, eye pain, eye drainage, eye tearing, icterus, ear discharge, ear pain, ear redness, nasal congestion, epistaxis, nasal pain, throat pain, throat swelling, mouth pain, tooth pain. Cardiovascular: Reports: peripheral edema (trace), syncope-> resolved. Denies: chest pain, edema, orthopena, palpitations. Respiratory: Reports: cough (brown sputum-> now dry), SOB-> slowly improving, off BiPAP. Denies: hemoptysis, orthopnea, stridor, wheezing. GI: Denies: abdominal pain, bloating, constipation, diarrhea, distention, bowel incontinence, nausea, bloody stool, melena, changes in stool, vomiting, steatorrhea. Genitourinary: Denies: discharge, dysuria, frequency, hematuria, hesitation, nocturia, pain, urgency. Musculoskeletal: Reports: back pain/left lat chest wall (chronic post zoster), joint pain (DJD). Denies: gout, joint swelling, muscle pain, muscle stiffness, neck pain. Skin: Reports: jaundice. Denies: cysts, change in skin color, change in hair/nails, dryness, erythema, lesions, lymphangitis, lumps, moles, rash. Neurological/Psychological: Reports: neuropathy & hx falls Denies: anxiety, ataxia, cognitive dysfunction, confusion, depressed, dementia, emotional problems, headache, numbness, paresthesia, pre-existing deficit, petit mal seizures, tingling, tremors, tonic-clonic seizures, unable to move lower ext , unable to move upper ext, weakness. Hematologic/Endocrine: Denies: bruising, bleeding, polyuria, polydipsia. Immunologic/Allergic: Denies: splenectomy, HIV/AIDS, lymphadenopathy. All Other Systems: Reviewed and Negative Objective Vital Signs and I&Os Vital Signs Date Time Temp Pulse Resp B/P B/P Pulse O2 O2 Flow FiO2 Mean Ox Delivery Rate 07/26 1459 97.8 100 20 141/90 93 Nasal 4.0L Cannula 07/26 0916 22 94 Nasal 4.0L Cannula 07/26 0916 20 96 Nasal 6.0L Cannula 07/26 0850 96 Nasal 6.0L Cannula 07/26 0834 96 20 152/80 95 Nasal 6.0L Cannula 07/26 0800 93 Nasal 6.0L Cannula 07/26 0752 97.9 110 22 176/80 93 Nasal 6.0L Cannula 07/26 0749 110 176/84 07/26 0610 97.7 110 20 176/84 92 07/26 0358 94 07/26 0340 20 94 Nasal 6.0L Cannula 07/26 0000 Nasal 3.0L Cannula 07/25 2229 97.9 108 20 150/80 90 Nasal 3.0L Cannula Intake & Output 07/26 1600 07/26 0400 07/25 1600 07/25 0400 07/24 1600 07/24 0400 Intake Total 1170 1000 1050 600 950 920 Output Total 400 600 0 300 0 300 Balance 175 017 2344 300 950 620 Intake, IV 30 10 100 10 20 Intake, Oral 1140 1000 1040 500 940 900 Number 0 1 0 0 0 Bowel Movements Output, Urine 400 600 0 300 0 300 Patient 251 lb 234 lb 241 lb 248 lb Weight Physical Exam: Well-developed, well-nourished, chronically ill appearing, obese male in mild distress. Sclera: slightly less icteric. Conjunctiva slightly pale. Oropharynx clear. Poor dentition. There is no adenopathy, thyromegaly, or JVD. No peripheral stigmata of inflammatory bowel disease or chronic liver disease on exam. No spiders on the anterior chest wall. No gynecomastia. No CVA tenderness. No spine tenderness. Dextroscoliosis of mid-L spine. Tender left lateral chest wall (post-herpetic neuralgia), without gross zoster. Lungs: clear to A&P, with slight decreased BS at the left base > right base. No wheezing, rales, or rhonchi. Heart exam: regular rate rhythm S1 and S2, with I/ systolic murmur. s /p CABG. Abdominal exam: normal bowel sounds, obese, soft belly, nontender, without guarding or rebound. Small B/L IH, otherwise, no mass. No organomegaly. Negative Mccauley sign. No fluid shift. No pulsatile mass. No epigastric bruit. Digital rectal exam done by myself 07/19/17: Dark brown stool (on iron), trace OB-positive, without mass. Smooth enlarged prostate. No nodules. No external hemorrhoids. No fissure. No bright red blood. Extremities: without cyanosis or clubbing. Trace pedal edema B/L. LUE AVF, with + thrill, + bruit. Positive DJD. No palpable cords. No palmar erythema. No Dupuytren's conttractures. Distal pulses 1+ bilaterally. DTRs 1+ bilaterally. Alert and oriented x 3. No longer lethargic, off BiPAP. TANGIRNAQ. Right handed. Motor 4/5 B/L. CN II-XII intact. No tremor. No asterixis. Current Medications: Current Medications Sig/Tiffanie Start time Last Medication Dose Route Stop Time Status Admin Albuterol Sulfate 3 ML EVERY 4 HRS/AWAKE 07/22 1200 AC 07/26 INH 1637 Amlodipine Besylate 10 MG DAILY 07/22 1117 AC 07/26 PO 0749 Aspirin 81 MG DAILY 07/20 1000 AC 07/25 PO 0918 Cholecalciferol 1,000 IU DAILY 07/20 1000 AC 07/25 PO 0918 Docusate Sodium 100 MG BID 07/22 1115 AC 07/25 PO 2152 Duloxetine HCl 30 MG DAILY 07/22 1116 AC 07/25 PO 0918 Epoetin Earnest 2,000 UNIT TUES THURS SAT 07/20 1424 AC 07/20 IV 1716 Gabapentin 300 MG QPM 07/20 2200 AC 07/25 PO 2152 Levothyroxine Sodium 0.05 MG DAILY AC 07/26 0700 AC 07/26 PO 0459 Lidocaine 2 PAT Q24H 07/21 1630 AC 07/25 EXT 1745 Lidocaine 1 ANI DAILY NEEDED PRN 07/20 1015 AC TOP Lidocaine/Prilocaine 1 ANI DAILY PRN 07/20 1315 AC 07/26 TOP 1534 Methylprednisolone 40 MG Q12 07/25 2200 AC 07/26 IV 0906 Pantoprazole Sodium 40 MG DAILY 07/20 1000 AC 07/26 IV 0905 Polyethylene Glycol 17 GM DAILY AC 07/22 1118 AC 07/26 PO 0458 Senna 187 MG DAILY 07/22 1115 AC 07/23 PO 0924 Sevelamer Carbonate 800 MG WM 07/20 0800 AC 07/26 PO 1324 Vitamin E 400 IU DAILY 07/20 1000 AC 07/25 PO 0918 Results Pertinent Lab Results: Laboratory Tests 07/26 07/25 0653 0636 Chemistry Sodium (137 - 145 mmol/L) 140 140 Potassium (3.5 - 5.1 mmol/L) 5.1 4.8 Chloride (98 - 107 mmol/L) 99 100 Carbon Dioxide (22 - 30 mmol/L) 23 24 Anion Gap (5 - 16) 18 H 16 BUN (9 - 20 mg/dL) 74 H 49 H Creatinine (0.7 - 1.2 mg/dL) 5.9 *H 4.6 H Estimated GFR (>60 ml/min) 9 L 12 L BUN/Creatinine Ratio (7 - 25 %) 12.5 10.7 Total Bilirubin (0.2 - 1.3 mg/dL) 8.0 H 7.9 H Direct Bilirubin (< 0.4 mg/dL) 7.3 H 7.2 H AST (17 - 59 U/L) 83 H 96 H ALT (21 - 72 U/L) 109 H 104 H Alkaline Phosphatase (< 127 U/L) 372 H 375 H Total Protein (6.3 - 8.2 g/dL) 6.2 L 6.1 L Albumin (3.5 - 5.0 g/dL) 3.5 3.4 L Hematology CBC w Diff MAN DIFF ORDERED NO MAN DIFF REQ WBC (4.8 - 10.8 /CUMM) 9.1 7.4 RBC (4.70 - 6.10 /CUMM) 2.58 L 2.55 L Hgb (14.0 - 18.0 G/DL) 7.9 L 7.8 L Hct (42 - 52 %) 24.0 L 23.9 L MCV (80.0 - 94.0 FL) 93.2 93.8 MCH (27.0 - 31.0 PG) 30.8 30.5 RDW (11.5 - 14.5 %) 17.1 H 17.6 H Plt Count (130 - 400 /CUMM) 257 235 MPV (7.4 - 10.4 FL) 8.1 8.1 Gran % (42.2 - 75.2 %) 91.1 H 91.7 H Lymphocytes % (20.5 - 51.1 %) 3.9 L 4.0 L Monocytes % (1.7 - 9.3 %) 4.9 4.2 Eosinophils % (0 - 5 %) 0 0.1 Basophils % (0.0 - 2.0 %) 0.1 0 Absolute Granulocytes (1.4 - 6.5 /CUMM) 8.3 H 6.8 H Segmented Neutrophils (42.2 - 75.2 %) 88 H Absolute Lymphocytes (1.2 - 3.4 /CUMM) 0.4 L 0.3 L Lymphocytes (20.5 - 51.1 %) 5 L Monocytes (1.7 - 9.3 %) 6 Absolute Monocytes (0.10 - 0.60 /CUMM) 0.4 0.3 Absolute Eosinophils (0.0 - 0.7 /CUMM) 0 0 Absolute Basophils (0.0 - 0.2 /CUMM) 0 0 Metamyelocytes (0.0 - 1.0 %) 1 Nucleated RBCs (0.0 - 0.0 /100WBC) 1 H Platelet Estimate (ADEQUATE) VERIFIED BY SMEAR Polychromasia 1+ Hypochromic-Microcytic 1+ Basophilic Stippling 1+ Anisocytosis 1+ Stomatocytes 1+ PUBS MCHC (33.0 - 37.0 G/DL) 33.1 32.5 L 07/24 07/24 2245 1056 Chemistry Sodium (137 - 145 mmol/L) 140 Potassium (3.5 - 5.1 mmol/L) 5.1 Chloride (98 - 107 mmol/L) 98 Carbon Dioxide (22 - 30 mmol/L) 20 L Anion Gap (5 - 16) 22 H BUN (9 - 20 mg/dL) 87 H Creatinine (0.7 - 1.2 mg/dL) 7.3 *H Estimated GFR (>60 ml/min) 7 L BUN/Creatinine Ratio (7 - 25 %) 11.9 Total Bilirubin (0.2 - 1.3 mg/dL) 5.1 H Direct Bilirubin (< 0.4 mg/dL) 4.5 H AST (17 - 59 U/L) 51 ALT (21 - 72 U/L) 82 H Alkaline Phosphatase (< 127 U/L) 364 H Total Protein (6.3 - 8.2 g/dL) 6.3 Albumin (3.5 - 5.0 g/dL) 3.5 Coagulation PT (9.4 - 12.5 SEC) 12.5 INR (0.90 - 1.17) 1.19 H Hematology CBC w Diff MAN DIFF ORDERED WBC (4.8 - 10.8 /CUMM) 7.9 RBC (4.70 - 6.10 /CUMM) 2.63 L Hgb (14.0 - 18.0 G/DL) 8.0 L Hct (42 - 52 %) 24.4 L MCV (80.0 - 94.0 FL) 93.0 MCH (27.0 - 31.0 PG) 30.6 RDW (11.5 - 14.5 %) 16.6 H Plt Count (130 - 400 /CUMM) 235 MPV (7.4 - 10.4 FL) 8.2 Gran % (42.2 - 75.2 %) 87.5 H Lymphocytes % (20.5 - 51.1 %) 5.1 L Monocytes % (1.7 - 9.3 %) 7.3 Eosinophils % (0 - 5 %) 0 Basophils % (0.0 - 2.0 %) 0.1 Absolute Granulocytes (1.4 - 6.5 /CUMM) 6.9 H Absolute Lymphocytes (1.2 - 3.4 /CUMM) 0.4 L Absolute Monocytes (0.10 - 0.60 /CUMM) 0.6 Absolute Eosinophils (0.0 - 0.7 /CUMM) 0 Absolute Basophils (0.0 - 0.2 /CUMM) 0 Platelet Estimate (ADEQUATE) VERIFIED BY SMEAR Polychromasia 1+ Hypochromic-Microcytic 1+ Anisocytosis 1+ Stomatocytes 1+ PUBS MCHC (33.0 - 37.0 G/DL) 32.9 L 07/24 07/24 07/24 07/24 0836 0615 0600 0135 Blood Gas pH (7.35 - 7.45 PH) 7.28 *L 7.28 *L 7.28 *L pCO2 (35 - 45 TORR) 48 H 48 H 51 H pO2 (80 - 100 TORR) 96 101 H 87 HCO3 (21 - 28 MEQ/L) 22 22 23 ABG O2 Sat (Measured) (>96.0 %) 96.0 95.0 L 94.0 L P-50 (Temp Corrected) YES Y N Carboxyhemoglobin (1.5 - 5.0 %) 0.9 L 1.5 1.0 L O2 Concentration % 35% 35% 35% Temperature (97.0 - 100.0 FARH) 98.2 98.2 98.6 Respiration Rate (BPM) 26 26 22 O2 Delivery Method BIPAP VISION VISION-FFM Vent Mode ST ST ST Expiratory Pressure (CM H2O P) 6 6 6 Inspiratory Pressure (CM H2O P) 18 18 18 Chemistry CA 19-9 Antigen (<34 U/mL) 5462 H Miscellaneous Phlebotomy Draw Site RIGHT RADIAL LEFT RADIAL LEFT RADIAL 07/23 07/23 2801 5079 Blood Gas pH (7.35 - 7.45 PH) 7.25 *L pCO2 (35 - 45 TORR) 52 H pO2 (80 - 100 TORR) 90 HCO3 (21 - 28 MEQ/L) 23 ABG O2 Sat (Measured) (>96.0 %) 94.0 L P-50 (Temp Corrected) Y Carboxyhemoglobin (1.5 - 5.0 %) 1.7 O2 Concentration % 4L Temperature (97.0 - 100.0 FARH) 97.1 O2 Delivery Method NC Chemistry Ammonia (9 - 30 umol/L) 35 H Miscellaneous Phlebotomy Draw Site RIGHT RADIAL Imaging/Other Studies: 07/19/17: EKG- NSR @ 76, 1st degree AVB, [place] .261, normal axis (V3 missing), NSST flattening. 07/19/17: XRY-PORTABLE CHEST XRAY- No definite evidence of pulmonary edema at this time. Elevated left hemidiaphragm, chronic. Mediastinum is difficult to assess with this technique. 07/19/17: CT CHEST, ABDOMEN AND PELVIS WITHOUT CONTRAST- 1. Asymmetric elevation of left diaphragm compared to right. Atelectasis at left lung base. No acute change of the chest. 2. Stable cystic lesion inferior right lobe of liver. No suspicious liver lesion. No ascites. 3. Cholelithiasis without acute change of gallbladder wall. No dilated ducts. 4. Atrophic right kidney. Bilateral renal cysts. No acute abnormality of kidneys. 5. Diverticulosis of colon without acute change of bowel. Status post prior surgical anastomosis at sigmoid colon intact. 6. Stable left adrenal lesion. 7. Small B/L IH. 8. DJD. Dextroscoliosis mid-L spine. 07/19/17: RUQ ABDOMINAL ULTRASOUND (LIMITED)- Liver of mildly heterogeneous echogenicity. No intrahepatic biliary ductal dilation. CBD 4 mm. Old 4.8 cm cyst within the right lobe with peripheral calcification. Cholelithiasis without evidence of cholecystitis. 07/19/17: CT HEAD WO IV CONTRAST- No evidence for acute intracranial injury. Age-appropriate appearance of the brain. 07/20/17: ECHOCARDIOGRAM- Normal left ventricular systolic function 60-65%. Left atrial enlargement. Mild to moderate Aortic stenosis. Mild to moderate Mitral stenosis. Moderate Pulmonary hypertension. 07/22/17: XRY-PORTABLE CHEST XRAY- Persistent marked elevation of the left hemidiaphragm with slight increased linear atelectasis at the left base and minimal atelectasis at the right base. No evidence of pulmonary edema. 07/22/17: US-LIMITED ABDOMEN- Suboptimal evaluation due to patient's body habitus. GB. CBD, & liver poorly visualized. Questionable subtle dilated IHD left lobe. Known stable cystic lesion inferior aspect of right lobe, dating back to at least 09/26/15. Alternative imaging modality such as MRCP may be considered for further full detailed evaluation, if clinically appropriate. DICTATED BY: Sunil Hood MD [As previously stated in my initial GI consult of 07/19/17, the patient *can't have MRCP due to implantable neurostimulator]. 07/23/17: XRY-PORTABLE CHEST XRAY- No significant change from 07/22/2017. Redemonstrated left hemidiaphragm elevation and suspected bibasilar atelectasis. 07/26/17: XRY-PORTABLE CHEST XRAY- Increased left basilar opacification which may represent a combination of pleural effusion and underlying atelectasis versus consolidation. Mild interstitial prominence may represent mild interstitial edema.
--- NOTE | 2017-07-26 17:30 | Discharge Summary ---
Visit Information Visit Dates Admission Date: 07/19/17 Discharge Date: 07/27/2017 Hospital Course Course Attending Physician: Celso BAIN,Sofía Primary Care Physician: Pricila Duong APRN Consulting Request: Consulting Specialty: Gastroenterology Consulting Physician: Ligia BAIN,Enrike Bee Hospital Course: Mr Martinez has a PMHx of coronary artery disease s/p CABG, colon cancer status post resection and anastomosis, HFpEF uses nocturnal O2 as needed, moderate , ROBYN not on CPAP, chronic back pain w/ neurostimulator in place, ESRD on HD( Mondays, wednesdays and Fridays) was brought in after he was found to be hypoxemic 84% while he was sitting in his chair, and subsequently had a syncopal episode that lasted for ten minutes, which was witnessed by his . As per the , he was told that there was "yellowish tinge of his HD filters" likely from his jaundice, and also missed a dialysis session due to increased fatigue, sorethroat and myalgias a few days prior to the illness. At the time of admission, he was afebrile, pulse in 70s, RR 20, BP 113/59, saturating 90% on 2 L nasal cannula. Overnight, vitals remained stable. Tm 99.3, BP was stable SBP 120-130s. Infl A +. Also was found to have very high level of bilirubin. He was admitted to ICU for closer monitoring of vitals, with a plan to be downgraded if vitals remain stable for the first 24 hrs. Pertinent lab data while he was in the ICU: WBC: 4.7, Hb 8.8 Na 140, K 5.5, HCO3 19, AG 22 ( likely metabolic ). Sr Cr 7.4-->8.4( 07/20)-->5.6(07/21) Tbili 9.3-->5.6(07/20)-->8.8(07/21) AST 98-->69 (07/20)-->90(07/21) ALT 110-->102(07/20)-->102(07/21) Alk Phos 354-->314-->364(07/21), Alb 3.4, INR 1.4, tylenol neg, Lipase 353. TropI 0.03, 0.04; proBNP 23211 vit B12 > 1000 CT head: No evidence for acute intracranial injury. Age-appropriate appearance of the brain. CT chest, abdomen: 1. Asymmetric elevation of left diaphragm compared to right. Atelectasis at left lung base. No acute change of the chest. 2. Stable cystic lesion inferior right lobe of liver. No suspicious liver lesion. 3. Cholelithiasis without acute change of gallbladder wall. 4. Atrophic right kidney. Bilateral renal cysts. No acute abnormality of kidneys. 5. Diverticulosis of colon without acute change of bowel. Status post prior surgical anastomosis at sigmoid colon intact. 6. Stable left adrenal lesion. US abdomen: Liver of mildly heterogeneous echogenicity. No intrahepatic biliary ductal dilation. 4.8 cm cyst within the right lobe with peripheral calcification. Cholelithiasis without evidence of cholecystitis. Initially patient was admitted in ICU for first 3 days after stabilization was transferred to general medical floor. During his hospital course we addressed the following problems. 1. Influenza- rapid flu came back positive on July 19 and was started on oseltamivir, and largely remained stable. He did not require any abx for any secondary bacterial infection. He had occassional, low grade temperature but did not show any decompensation. While he showed an overal clinical improvement, he developed respiratory distress that required increase in oxygen demand during the course of stay in the ICU. Although, not ideal in view of influenza A, intravenous steoids were started for the acute tx of inflammation of lower airways. He completed a course of Tamiflu for 5 days during hospital stay. 2. Abnormal liver chemistries- Patient was noticed to be jaundiced by family and on admission his bilirubin was 9.3 with direct 8.6 and total bili was initially trended down and we thought it is cholestatic jaundice but later on it was started rising up from 7.9.. 8.0.. And 11.2 this morning.Since the liver chemistries showed improvement first, we thought that the etiology was likely due to a gall stone that may have passed. Increase in bilirubin and worsening liver enzymes indicated some kind of systemic process such as infection causing biliary stasis. Other uncommon etiologies such as cholestasis from flu or could be entertained. He had abnormal pANCA in the past, which makes auto-immune casues a possibility, but unlikely. Since, the liver chemistries that clearly did not show a uptrend at the beginning, or hemodynamic unstabiltiy intervention such as ERCP was defered. Senior It Recruiter, Dr. Strong was consulted for advise. CA 199 wasSent and came back very high to [id number]. Patient has a implantable neuro stimulator which is incompatible with MRCP. With markedly elevated CA 19/9 etiology includes cholangiocarcinoma versus pancreatic carcinoma versus papillary lesion and at this point his respiratory status is somewhat improved he is off of BiPAP,we will transfer this patient to [facility] for ERCP/EUS. --- Hepatitis panel came back negative, viral culture is still pending 3. Syncope- Likely from dehydration. This acute change that could have resulted from influenza, which could have affected both repiratory and GI, resulting in dehydration that led to a syncopal episode. Since he had moderate , cardiac cause is not completely ruled out. He was evaluated by a cadiologist, and a repeat echocardiogram was obtained-which revealed moderate aortic stenosis, which is not completely attributed to his syncope. 3. ESRD on HD- Since he missed his session of HD, a few extra session was arranged by the cabin furnishings installer. HD sessions were largely uneventful. He received his dialysis on Mondays, Wednesdays and Fridays. His last hemodialysis was done on July 26. 4. HTN- In regards to his anti-hypertensives, the medications were restarted as the BP allowed. He remained hemodynamically stable throughout his hospital course lately. 5. History of GI bleed- He did not have any episodes of GI bleed during hospital stay Complications: none Allergies: Coded Allergies: NO KNOWN ALLERGIES (09/28/15) Significant Procedures: SERVICE DATE: 07/19/17 EXAM TYPE: CAT - CT ABD & PELVIS W/O IV CONTRAS; CT CHEST WO IV CONTRAST EXAMINATION: CT CHEST, ABDOMEN AND PELVIS WITHOUT CONTRAST CLINICAL INFORMATION: Pneumonia. Cholecystitis. Pancreatitis. Malignancy. Syncope. Jaundice. Elevated bilirubin. COMPARISON: Portable chest 07/19/2017. CT chest 08/22/2016. CT abdomen and pelvis 09/26/2015, 10/10/2007. Renal ultrasound 09/28/2015. TECHNIQUE: Multidetector volumetric CT imaging of the chest, abdomen and pelvis was obtained without oral or intravenous contrast. Coronal and sagittal reformatted images are performed at the CT scanner. DLP: 904.00 mGy-cm FINDINGS: CT CHEST: Lungs: Asymmetric elevation of left diaphragm compared to right. Linear atelectasis at left lung base. No infiltrate. Central bronchial airways are open. Mediastinum: No bulky adenopathy. There are few small shotty lymph nodes measuring less than 1 cm in diameter at the pretracheal retrovascular space and the AP window. There is no pericardial effusion. There is vascular wall calcification of aorta and coronary arteries. Status post median sternotomy. Pleura: There is no pleural effusion. No pleural mass or thickening. Axilla: No lymphadenopathy. CT ABDOMEN AND PELVIS: Liver, Gallbladder, and Biliary Tree: Sharply marginated lobular hypodense lesion with linear calcifications again seen at the inferior posterior right lobe of liver, segment 6. This is unchanged since CAT scan 09/26/2015. No suspicious liver lesions. No intrahepatic bile duct dilatation. Small gallstones layering dependently in the gallbladder that are calcified. No edema around the gallbladder or gallbladder wall thickening. Pancreas: No acute change of the pancreas. No mass. No pancreatic duct dilatation. Spleen: Spleen normal in size and contour. No focal lesion. Adrenal Glands: Stable 2.4 cm left adrenal nodule unchanged since CAT scan 10/10/2007. Right adrenal gland normal. Kidneys and Ureters: Stable mild diffuse cortical thinning and atrophy of the right kidney. Right kidney measures 9 cm in length. Left kidney measures 11.6 cm. Stable bilateral multiple renal cysts. This includes ovoid lesion in the left parapelvic region from a hyperdense parapelvic cyst. This was demonstrated to be a cyst on the ultrasound exam of 09/28/2015. There is no hydronephrosis. No renal or ureteral calculi. Bladder: Unremarkable. Gastrointestinal Tract: Status post anastomosis at the mid sigmoid. There is diverticulosis of the descending colon. No diverticulitis. No acute change of the bowel. No bowel obstruction. No bowel wall thickening or edema. The appendix is normal. The small bowel loops are normal. Mesentery: No focal inflammation. No free fluid. No free air. Abdominal Wall: Small bilateral fat-containing inguinal hernia. Lymph Nodes: Normal. Vascular: Extensive atherosclerotic vascular wall calcifications throughout the abdomen and pelvis. No aneurysm of the aorta. Pelvic Viscera: Prostate measures 5.4 cm transverse. Osseous Structures: Multilevel degenerative spondylosis of the spine. Multilevel vacuum disc phenomena throughout the lumbar spine. Dextroscoliosis of the mid lumbar spine. IMPRESSION: 1. Asymmetric elevation of left diaphragm compared to right. Atelectasis at left lung base. No acute change of the chest. 2. Stable cystic lesion inferior right lobe of liver. No suspicious liver lesion. 3. Cholelithiasis without acute change of gallbladder wall. 4. Atrophic right kidney. Bilateral renal cysts. No acute abnormality of kidneys. 5. Diverticulosis of colon without acute change of bowel. Status post prior surgical anastomosis at sigmoid colon intact. 6. Stable left adrenal lesion. Pertinent Lab Results: SERVICE DATE: 07/19/17 EXAM TYPE: US - US-LIMITED ABDOMEN EXAMINATION: ABDOMINAL ULTRASOUND LIMITED CLINICAL INFORMATION: Jaundice. Elevated bilirubin. Follow-up abnormal exam. COMPARISON: Same day abdominal and pelvic CT. TECHNIQUE: Real-time imaging of the right upper quadrant abdominal viscera. FINDINGS: PANCREAS: The visualized pancreatic head and body are normal in appearance. The remainder of the pancreas is obscured from visualization by the overlying bowel gas. LIVER: The liver is of normal size and mildly heterogeneous echogenicity without intrahepatic biliary ductal dilation. There is a 4.8 cm cyst within the right lobe with a thin septation and likely peripheral calcification. GALLBLADDER: There are several small calculi within the gallbladder lumen without wall thickening or pericholecystic fluid. COMMON BILE DUCT: Normal in caliber measuring 0.4 cm in diameter. RIGHT KIDNEY: The right kidney is not well demonstrated. FREE FLUID: None. IMPRESSION: Liver of mildly heterogeneous echogenicity. No intrahepatic biliary ductal dilation. 4.8 cm cyst within the right lobe with peripheral calcification. Cholelithiasis without evidence of cholecystitis. Disposition Summary Disposition Principal Diagnosis: Elevated liver enzymes/jaundice most likely due to underlying hepatobiliary pathology/cholangiocarcinoma Additional Diagnosis: End-stage renal disease on dialysis Discharge Disposition: other general hospital Discharge Instructions General Discharge Information Code Status: Full Code Patient's Diet: Renal dialysis diet. Patient's Activity: As tolerated with assistance Follow-Up Instructions/Appts: Please follow-up with your primary care physician in one week of discharge Please follow with nephrology in one week of discharge Please follow-up with gastroenterology in 1-2 weeks of discharge Medications at Discharge Discharge Medications: Stop taking the following medications: Atorvastatin Calcium (Atorvastatin Calcium) 20 MG TABLET ORAL DAILY Qty = 90 Continue taking these medications: Docusate Sodium (Colace) 100 MG CAPSULE 1 Capsule ORAL TWICE DAILY Comments: Last Taken: 07/27/17 Time: 0900 AM Labetalol HCl (Labetalol HCl) 300 MG TABLET 1 Tablet ORAL Every Morning Qty = 60 Comments: NOT GIVEN IN HOSPITAL Sennosides (Senokot) 8.6 MG TABLET 1 Tablet ORAL DAILY Comments: Last Taken: 07/27/17 Time: 0900AM Levothyroxine Sodium (Levothyroxine Sodium) 50 MCG TABLET 1 Tablet ORAL DAILY Qty = 30 Comments: Last Taken: 07/27/17 Time: 0600AM Cholecalciferol (Vitamin D3) (Vitamin D) 1,000 UNIT TABLET 1 Tablet ORAL DAILY Comments: Last Taken: 07/27/17 Time: 0900AM Epoetin Earnest (Procrit) 40,000 UNIT/ML VIAL 40,000 Unit Inject into fatty tissue EVERY 2 WEEKS Comments: GIVEN WITH DIALYSIS Aspirin (Aspirin*) 81 MG TAB.CHEW 1 Tablet ORAL DAILY Qty = 30 Comments: Last Taken: 07/27/17 Time: 0900AM Sevelamer Carbonate (Renvela) 800 MG TABLET 1 Tablet ORAL WITH MEALS Qty = 30 Comments: Last Taken: 07/27/17 Time: 1200PM Nephro-Vitamins (Nephro-Becca Tablet) 0.8 MG TABLET 1 Tablet ORAL DAILY Qty = 30 Comments: Last Taken: 07/27/17 Time: 0900AM Gabapentin (Neurontin) 300 MG CAPSULE 1 Capsule ORAL Every night Comments: Last Taken: 07/26/17 Time: 2200PM Isosorbide Mononitrate (Isosorbide Mononitrate) 10 MG TABLET 1 Tablet ORAL TWICE DAILY Qty = 180 Comments: NOT GIVEN IN HOSPITAL Labetalol HCl (Labetalol HCl) 300 MG TABLET 150 Milligram ORAL Every night Comments: NOT GIVEN IN HOSPITAL Vitamin E (Dl,Tocopheryl Acet) (Vitamin E) 400 UNIT CAPSULE 1 Capsule ORAL DAILY Comments: Last Taken: 07/27/17 Time: 0900AM Lidocaine (Lidocaine) 5 % ADH..PATCH 1 Patch On the skin DAILY Qty = 30 Comments: Last Taken: 07/25/17 Time: 1700PM Duloxetine HCl (Duloxetine HCl) 30 MG CAPSULE.DR 1 Capsule ORAL DAILY Comments: Last Taken: 07/27/17 Time: 0900AM Start taking the following new medications: Prednisone (Prednisone) 10 MG TABLET 40 Milligram ORAL DAILY Qty = 20 No Refills Instructions: 40 MGX 2DAYS THEN 30 MG FOR 2 DAYS THEN 20 MG X 2 DAYS THEN 10 MG X 2 DAYS AND STOP Omeprazole (Omeprazole) 40 MG CAPSULE.DR 1 Capsule ORAL DAILY Qty = 30 No Refills Copies To: Pricila Duong APRN Attending Review Statement Documenting Attending: Celso BAIN,Sofía
[2017-07-26] MEDS ORDERED: PANTOPRAZOLE SO40 M2 IV (17:31)
[2017-07-26] MEDS ORDERED: SOLU-MEDRO40 MG/1 ML IV (17:31)
[2017-07-26 22:00] VITALS: BP 142/80
--- NOTE | 2017-07-26 22:27 | PN- Nephrology ---
Assessment/Plan Assessment: 1. ESRD 2. Influenza 3. Hyperbilirubinemia - direct 4. Obstructive sleep apnea with chronic hypoxemia and hypercarbia 5. Coronary artery disease Suggestion: 1. Hemodialysis today with ultrafiltration as tolerated 2. Next hemodialysis after today for Friday 07/28 3. GI, Pulmonary and Cardiology following Subjective Subjective: Episodically desaturates with transient sob. Dialysis today uneventful. Objective Vital Signs and I&Os Vital Signs Date Time Temp Pulse Resp B/P B/P Pulse O2 O2 Flow FiO2 Mean Ox Delivery Rate 07/26 2200 97.9 97 20 142/80 95 Nasal 3.0L Cannula 07/26 1640 96 Nasal 3.0L Cannula 07/26 1600 93 Nasal 4.0L Cannula 07/26 1459 97.8 100 20 141/90 93 Nasal 4.0L Cannula 07/26 0916 22 94 Nasal 4.0L Cannula 07/26 0916 20 96 Nasal 6.0L Cannula 07/26 0850 96 Nasal 6.0L Cannula 07/26 0834 96 20 152/80 95 Nasal 6.0L Cannula 07/26 0800 93 Nasal 6.0L Cannula 07/26 0752 97.9 110 22 176/80 93 Nasal 6.0L Cannula 07/26 0749 110 176/84 07/26 0610 97.7 110 20 176/84 92 07/26 0358 94 07/26 0340 20 94 Nasal 6.0L Cannula 07/26 0000 Nasal 3.0L Cannula 07/25 2229 97.9 108 20 150/80 90 Nasal 3.0L Cannula Intake & Output 07/26 1600 07/26 0400 07/25 1600 07/25 0400 07/24 1600 07/24 0400 Intake Total 1170 1000 1050 600 950 920 Output Total 400 600 0 300 0 300 Balance 043 302 4508 300 950 620 Intake, IV 30 10 100 10 20 Intake, Oral 1140 1000 1040 500 940 900 Number 0 1 0 0 0 Bowel Movements Output, Urine 400 600 0 300 0 300 Patient 251 lb 234 lb 241 lb 248 lb Weight Physical Exam: General: Well-developed, elderly white male in NAD Skin: + Jaundice, no rash or lesions HEENT: Conjunctivae pale, sclerae icteric, mucous membranes dry Neck: Without masses or thyromegaly, no supraclavicular or cervical adenopathy Chest: Scattered rhonchi Heart: Regular rate and rhythm without S3 or rub Abdomen: Soft and nontender without palpable masses or organomegaly Extremities: Without cyanosis or edema Neuro: No focal findings, no asterixis or myoclonus Results Pertinent Lab Results: Laboratory Tests 07/26 07/26 07/26 2059 1726 0653 Chemistry Sodium (137 - 145 mmol/L) Pending 140 140 Potassium (3.5 - 5.1 mmol/L) Pending 5.2 H 5.1 Chloride (98 - 107 mmol/L) Pending 98 99 Carbon Dioxide (22 - 30 mmol/L) Pending 22 23 Anion Gap (5 - 16) Pending 20 H 18 H BUN (9 - 20 mg/dL) Pending 84 H 74 H Creatinine (0.7 - 1.2 mg/dL) Pending 6.4 *H 5.9 *H Estimated GFR (>60 ml/min) 8 L 9 L BUN/Creatinine Ratio (7 - 25 %) Pending 13.1 12.5 Calcium (8.4 - 10.2 mg/dL) Pending 8.1 L Phosphorus (2.5 - 4.5 mg/dL) 6.0 H Magnesium (1.6 - 2.3 mg/dL) 2.1 Total Bilirubin (0.2 - 1.3 mg/dL) 8.0 H Direct Bilirubin (< 0.4 mg/dL) 7.3 H AST (17 - 59 U/L) 83 H ALT (21 - 72 U/L) 109 H Alkaline Phosphatase (< 127 U/L) 372 H Total Protein (6.3 - 8.2 g/dL) 6.2 L Albumin (3.5 - 5.0 g/dL) 3.8 3.5 Hematology CBC w Diff MAN DIFF ORDERED WBC (4.8 - 10.8 /CUMM) 9.1 RBC (4.70 - 6.10 /CUMM) 2.58 L Hgb (14.0 - 18.0 G/DL) 7.9 L Hct (42 - 52 %) 24.0 L MCV (80.0 - 94.0 FL) 93.2 MCH (27.0 - 31.0 PG) 30.8 RDW (11.5 - 14.5 %) 17.1 H Plt Count (130 - 400 /CUMM) 257 MPV (7.4 - 10.4 FL) 8.1 Gran % (42.2 - 75.2 %) 91.1 H Lymphocytes % (20.5 - 51.1 %) 3.9 L Monocytes % (1.7 - 9.3 %) 4.9 Eosinophils % (0 - 5 %) 0 Basophils % (0.0 - 2.0 %) 0.1 Absolute Granulocytes (1.4 - 6.5 /CUMM) 8.3 H Segmented Neutrophils (42.2 - 75.2 %) 88 H Absolute Lymphocytes (1.2 - 3.4 /CUMM) 0.4 L Lymphocytes (20.5 - 51.1 %) 5 L Monocytes (1.7 - 9.3 %) 6 Absolute Monocytes (0.10 - 0.60 /CUMM) 0.4 Absolute Eosinophils (0.0 - 0.7 /CUMM) 0 Absolute Basophils (0.0 - 0.2 /CUMM) 0 Metamyelocytes (0.0 - 1.0 %) 1 Nucleated RBCs (0.0 - 0.0 /100WBC) 1 H Platelet Estimate (ADEQUATE) VERIFIED BY SMEAR Polychromasia 1+ Hypochromic-Microcytic 1+ Basophilic Stippling 1+ Anisocytosis 1+ Stomatocytes 1+ PUBS MCHC (33.0 - 37.0 G/DL) 33.1 07/25 07/24 0636 2245 Chemistry Sodium (137 - 145 mmol/L) 140 Potassium (3.5 - 5.1 mmol/L) 4.8 Chloride (98 - 107 mmol/L) 100 Carbon Dioxide (22 - 30 mmol/L) 24 Anion Gap (5 - 16) 16 BUN (9 - 20 mg/dL) 49 H Creatinine (0.7 - 1.2 mg/dL) 4.6 H Estimated GFR (>60 ml/min) 12 L BUN/Creatinine Ratio (7 - 25 %) 10.7 Total Bilirubin (0.2 - 1.3 mg/dL) 7.9 H Direct Bilirubin (< 0.4 mg/dL) 7.2 H AST (17 - 59 U/L) 96 H ALT (21 - 72 U/L) 104 H Alkaline Phosphatase (< 127 U/L) 375 H Total Protein (6.3 - 8.2 g/dL) 6.1 L Albumin (3.5 - 5.0 g/dL) 3.4 L Coagulation PT (9.4 - 12.5 SEC) 12.5 INR (0.90 - 1.17) 1.19 H Hematology CBC w Diff NO MAN DIFF REQ WBC (4.8 - 10.8 /CUMM) 7.4 RBC (4.70 - 6.10 /CUMM) 2.55 L Hgb (14.0 - 18.0 G/DL) 7.8 L Hct (42 - 52 %) 23.9 L MCV (80.0 - 94.0 FL) 93.8 MCH (27.0 - 31.0 PG) 30.5 RDW (11.5 - 14.5 %) 17.6 H Plt Count (130 - 400 /CUMM) 235 MPV (7.4 - 10.4 FL) 8.1 Gran % (42.2 - 75.2 %) 91.7 H Lymphocytes % (20.5 - 51.1 %) 4.0 L Monocytes % (1.7 - 9.3 %) 4.2 Eosinophils % (0 - 5 %) 0.1 Basophils % (0.0 - 2.0 %) 0 Absolute Granulocytes (1.4 - 6.5 /CUMM) 6.8 H Absolute Lymphocytes (1.2 - 3.4 /CUMM) 0.3 L Absolute Monocytes (0.10 - 0.60 /CUMM) 0.3 Absolute Eosinophils (0.0 - 0.7 /CUMM) 0 Absolute Basophils (0.0 - 0.2 /CUMM) 0 PUBS MCHC (33.0 - 37.0 G/DL) 32.5 L 07/24 07/24 1056 0836 Blood Gas pH (7.35 - 7.45 PH) 7.28 *L pCO2 (35 - 45 TORR) 48 H pO2 (80 - 100 TORR) 96 HCO3 (21 - 28 MEQ/L) 22 ABG O2 Sat (Measured) (>96.0 %) 96.0 P-50 (Temp Corrected) YES Carboxyhemoglobin (1.5 - 5.0 %) 0.9 L O2 Concentration % 35% Temperature (97.0 - 100.0 FARH) 98.2 Respiration Rate (BPM) 26 O2 Delivery Method BIPAP Vent Mode ST Expiratory Pressure (CM H2O P) 6 Inspiratory Pressure (CM H2O P) 18 Chemistry Sodium (137 - 145 mmol/L) 140 Potassium (3.5 - 5.1 mmol/L) 5.1 Chloride (98 - 107 mmol/L) 98 Carbon Dioxide (22 - 30 mmol/L) 20 L Anion Gap (5 - 16) 22 H BUN (9 - 20 mg/dL) 87 H Creatinine (0.7 - 1.2 mg/dL) 7.3 *H Estimated GFR (>60 ml/min) 7 L BUN/Creatinine Ratio (7 - 25 %) 11.9 Total Bilirubin (0.2 - 1.3 mg/dL) 5.1 H Direct Bilirubin (< 0.4 mg/dL) 4.5 H AST (17 - 59 U/L) 51 ALT (21 - 72 U/L) 82 H Alkaline Phosphatase (< 127 U/L) 364 H Total Protein (6.3 - 8.2 g/dL) 6.3 Albumin (3.5 - 5.0 g/dL) 3.5 Hematology CBC w Diff MAN DIFF ORDERED WBC (4.8 - 10.8 /CUMM) 7.9 RBC (4.70 - 6.10 /CUMM) 2.63 L Hgb (14.0 - 18.0 G/DL) 8.0 L Hct (42 - 52 %) 24.4 L MCV (80.0 - 94.0 FL) 93.0 MCH (27.0 - 31.0 PG) 30.6 RDW (11.5 - 14.5 %) 16.6 H Plt Count (130 - 400 /CUMM) 235 MPV (7.4 - 10.4 FL) 8.2 Gran % (42.2 - 75.2 %) 87.5 H Lymphocytes % (20.5 - 51.1 %) 5.1 L Monocytes % (1.7 - 9.3 %) 7.3 Eosinophils % (0 - 5 %) 0 Basophils % (0.0 - 2.0 %) 0.1 Absolute Granulocytes (1.4 - 6.5 /CUMM) 6.9 H Absolute Lymphocytes (1.2 - 3.4 /CUMM) 0.4 L Absolute Monocytes (0.10 - 0.60 /CUMM) 0.6 Absolute Eosinophils (0.0 - 0.7 /CUMM) 0 Absolute Basophils (0.0 - 0.2 /CUMM) 0 Platelet Estimate (ADEQUATE) VERIFIED BY SMEAR Polychromasia 1+ Hypochromic-Microcytic 1+ Anisocytosis 1+ Stomatocytes 1+ PUBS MCHC (33.0 - 37.0 G/DL) 32.9 L Miscellaneous Phlebotomy Draw Site RIGHT RADIAL 07/24 07/24 07/24 07/23 0615 0600 0135 2250 Blood Gas pH (7.35 - 7.45 PH) 7.28 *L 7.28 *L 7.25 *L pCO2 (35 - 45 TORR) 48 H 51 H 52 H pO2 (80 - 100 TORR) 101 H 87 90 HCO3 (21 - 28 MEQ/L) 22 23 23 ABG O2 Sat (Measured) (>96.0 %) 95.0 L 94.0 L 94.0 L P-50 (Temp Corrected) Y N Y Carboxyhemoglobin (1.5 - 5.0 %) 1.5 1.0 L 1.7 O2 Concentration % 35% 35% 4L Temperature (97.0 - 100.0 FARH) 98.2 98.6 97.1 Respiration Rate (BPM) 26 22 O2 Delivery Method VISION VISION-FFM NC Vent Mode ST ST Expiratory Pressure (CM H2O P) 6 6 Inspiratory Pressure (CM H2O P) 18 18 Chemistry CA 19-9 Antigen (<34 U/mL) 5462 H Miscellaneous Phlebotomy Draw Site LEFT RADIAL LEFT RADIAL RIGHT RADIAL 07/23 2237 Chemistry Ammonia (9 - 30 umol/L) 35 H
[2017-07-27 06:05] VITALS: BP 138/72
--- NOTE | 2017-07-27 08:22 | PN- Housestaff ---
Evelyn Venegas 07/27/17 0822: Subjective Follow-up For: Flu Hyperbilirubinemia Syncopal episode End-stage renal disease on dialysis Subjective: Patient was seen and examined this morning. He was sitting comfortably on bed without any significant complaints. He remained afebrile and hemodynamically stable. Given his elevated CA 199 we will transfer patient to [facility] for endoscopy, ultrasound/ERCP Review of Systems Constitutional: Denies: chills, diaphoresis, malaise. Cardiovascular: Denies: edema, palpitations. Respiratory: Denies: hemoptysis, orthopnea. Gastrointestinal: Denies: constipation, distention. Genitourinary: Denies: dysuria, frequency. Musculoskeletal: Denies: joint pain, muscle pain. Objective Last 24 Hrs of Vital Signs/I&O Vital Signs Date Time Temp Pulse Resp B/P B/P Pulse O2 O2 Flow FiO2 Mean Ox Delivery Rate 07/27 1321 97.8 90 20 148/80 07/27 0918 90 148/80 07/27 0822 94 Nasal 3.0L Cannula 07/27 0800 95 Nasal 3.0L Cannula 07/27 0605 97.8 108 20 138/72 94 07/27 0000 95 Nasal 3.0L Cannula 07/26 2200 97.9 97 20 142/80 95 Nasal 3.0L Cannula 07/26 1640 96 Nasal 3.0L Cannula 07/26 1600 93 Nasal 4.0L Cannula 07/26 1459 97.8 100 20 141/90 93 Nasal 4.0L Cannula Intake & Output 07/27 1600 07/27 0800 07/27 0000 Intake Total 200 820 Output Total 200 2000 Balance 0 -1180 Intake, IV 0 20 Intake, Oral 200 800 Number 0 Bowel Movements Output, 2000 Dialysate Output, Urine 200 0 Patient 247 lb 238 lb Weight Weight Bed scale Measurement Method Physical Exam General Appearance: Alert, Oriented X3, Cooperative, No Acute Distress, jaundiced Cardiovascular: Normal S1, Normal S2 Lungs: bilateral ronchi Abdomen: Soft, No Tenderness Extremities: No Clubbing, No Cyanosis, mild edema Current Medications: Current Medications Sig/Tiffanie Start time Last Medication Dose Route Stop Time Status Admin Albuterol Sulfate 3 ML EVERY 4 HRS/AWAKE 07/22 1200 AC 07/27 INH 1117 Amlodipine Besylate 10 MG DAILY 07/22 1117 AC 07/27 PO 0918 Aspirin 81 MG DAILY 07/20 1000 AC 07/27 PO 0918 Cholecalciferol 1,000 IU DAILY 07/20 1000 AC 07/27 PO 0919 Docusate Sodium 100 MG BID 07/22 1115 AC 07/27 PO 0917 Duloxetine HCl 30 MG DAILY 07/22 1116 AC 07/27 PO 0918 Epoetin Earnest 2,000 UNIT JOSE LIMA SAT 07/20 1424 AC 07/20 IV 1716 Gabapentin 300 MG QPM 07/20 2200 AC 07/26 PO 2254 Levothyroxine Sodium 0.05 MG DAILY AC 07/26 0700 AC 07/27 PO 0559 Lidocaine 2 PAT Q24H 07/21 1630 AC 07/25 EXT 1745 Lidocaine 1 ANI DAILY NEEDED PRN 07/20 1015 AC TOP Lidocaine/Prilocaine 1 ANI DAILY PRN 07/20 1315 AC 07/26 TOP 1534 Methylprednisolone 40 MG Q12 07/25 2200 AC 07/27 IV 0918 Pantoprazole Sodium 40 MG DAILY 07/20 1000 AC 07/27 IV 0918 Paricalcitol 2 MCG ONCE ONE 07/26 2044 DC IV 07/26 204 Polyethylene Glycol 17 GM DAILY AC 07/22 1118 AC 07/27 PO 0559 Senna 187 MG DAILY 07/22 1115 AC 07/27 PO 0917 Sevelamer Carbonate 800 MG WM 07/20 0800 AC 07/27 PO 1244 Vitamin E 400 IU DAILY 07/20 1000 AC 07/27 PO 0917 Last 24 Hrs of Lab/Jamel Results Last 24 Hrs of Labs/Mics: Laboratory Tests 07/27/17 0905: Anion Gap 14, Estimated GFR 14 L, BUN/Creatinine Ratio 11.4, Total Bilirubin 11.2 H, Direct Bilirubin 10.3 H, AST 108 H, ALT 119 H, Alkaline Phosphatase 352 H, Total Protein 6.5, Albumin 3.6, CBC w Diff MAN DIFF ORDERED, RBC 2.59 L , MCV 92.1, MCH 30.2, MCHC 32.8 L, RDW 17.6 H, MPV 7.8, Gran % 90.5 H, Lymphocytes % 4.3 L, Monocytes % 5.1, Eosinophils % 0.1, Basophils % 0, Absolute Granulocytes 8.6 H, Segmented Neutrophils 89 H, Absolute Lymphocytes 0.4 L, Lymphocytes 5 L, Monocytes 2, Absolute Monocytes 0.5, Eosinophils 1, Absolute Eosinophils 0, Absolute Basophils 0, Metamyelocytes 2 H, Myelocytes 1 H, Platelet Estimate VERIFIED BY SMEAR, Polychromasia 1+, Basophilic Stippling 1 +, Anisocytosis 1+, Stomatocytes 1+ 07/26/172058: Anion Gap 16, Estimated GFR 27 L, BUN/Creatinine Ratio 11.7, Calcium 8.7 07/26/171725: Anion Gap 20 H, Estimated GFR 8 L, BUN/Creatinine Ratio 13.1, Calcium 8.1 L, Phosphorus 6.0 H, Magnesium 2.1, Albumin 3.8 Assessment/Plan Assessment: Mr Martinez has a PMHx of coronary artery disease s/p CABG, colon cancer status post resection and anastomosis, HFpEF uses nocturnal O2 as needed, moderate , ROBYN not on CPAP, chronic back pain w/ neurostimulator in place, ESRD on HD was brought in after he was found to be hypoxemic 84% while he was sitting in his chair, and subsequently had a syncopal episode likely from dehydration. He was also found to have influenza and was started on Tamiflu. Plan: 1. Influenza- He was started on oseltamivir and he completed 5 days. 2. Abnormal liver chemistries- Patient was seen by gastroenterology and at this point his elevated liver enzymes are most likely cholestatic transaminitis and was because of underlying infectious histology. We will continue watching LFTs as they are trending down. We continue holding his statins as well. Patient is not a candidate for ERCP. After discussing with gastroenterology CA 199 was sent and came back [phone]. Patient will be transferred to [facility] for ERCP/endoscopy, ultrasound. We have and accepting physician and will transfer him today. 3. Syncope- Likely from dehydration. - Was evaluated by the block feeder. - Echocardiogram done on 07/20 showed aortic stenosis (moderate). 3. ESRD on HD - He undergoes dialysis M/W/F - Renal dialysis diet. 4. HTN On home regimen of antihypertensives 5. GI bleed- - H&H stable - Monitor closely. Problem List: 1. Elevated CA 19-9 level 2. Cholelithiasis 3. 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 Patient currently on 3 L of oxygen. Patient had very high CA 199 levels. As discussed with gastroenterology Dr. England, he recommends that patient needs endoscopy, ultrasound as well as ERCP. He recommends transfer to [facility]. Discussed with Dr. Currie who agrees with transfer from respiratory standpoint. Called [facility] and we have an accepting physician Dr. Wu as well as excepting GI doctor Dr. Collins. Patient will be transferred to [facility]. He will be continued on his home medications but will hold Lipitor for now. He has completed the course of Tamiflu. He will be discharged also on a PPI as well as prednisone taper. I discussed patient's care with his at length who is in agreement.
[2017-07-27 09:25] LABS: ABSOLUTE BASOPHIL COUNT 0 /CUMM (0.0-0.2); ABSOLUTE EOSINOPHIL COUNT 0 /CUMM (0.0-0.7); ABSOLUTE GRANULOCYTE CT 8.6 /CUMM (1.4-6.5); ABSOLUTE LYMPH COUNT 0.4 /CUMM (1.2-3.4); ABSOLUTE MONOCYTE COUNT 0.5 /CUMM (0.10-0.60); BASOPHIL % 0 % (0.0-2.0); EOSINOPHIL % 0.1 % (0-5); GRANULOCYTE % 90.5 % (42.2-75.2); HEMATOCRIT 23.9 % (42-52); MEAN CORPUSCULAR HGB 30.2 PG (27.0-31.0); MEAN CORPUSCULAR HGB CONC 32.8 G/DL (33.0-37.0); MEAN CORPUSCULAR VOLUME 92.1 FL (80.0-94.0); MEAN PLATELET VOLUME 7.8 FL (7.4-10.4); PLATELET COUNT 282 /CUMM (130-400); RBC DISTRIBUTION WIDTH 17.6 % (11.5-14.5); RED BLOOD CELL CT 2.59 /CUMM (4.70-6.10); WHITE BLOOD CELL COUNT 9.4 /CUMM (4.8-10.8)
--- NOTE | 2017-07-27 12:00 | PN- Pulmonary ---
Subjective HPI/Critical Care Issues: Patient seen and examined this morning. We are anticipating discharge to [facility]. Objective Current Medications: Current Medications Sig/Tiffanie Start time Last Medication Dose Route Stop Time Status Admin Albuterol Sulfate 3 ML EVERY 4 HRS/AWAKE 07/22 1200 AC 07/27 INH 1117 Amlodipine Besylate 10 MG DAILY 07/22 1117 AC 07/27 PO 0918 Aspirin 81 MG DAILY 07/20 1000 AC 07/27 PO 0918 Cholecalciferol 1,000 IU DAILY 07/20 1000 AC 07/27 PO 0919 Docusate Sodium 100 MG BID 07/22 1115 AC 07/27 PO 0917 Duloxetine HCl 30 MG DAILY 07/22 1116 AC 07/27 PO 0918 Epoetin Earnest 2,000 UNIT TUES THURS SAT 07/20 1424 AC 07/20 IV 1716 Gabapentin 300 MG QPM 07/20 2200 AC 07/26 PO 2254 Levothyroxine Sodium 0.05 MG DAILY AC 07/26 0700 AC 07/27 PO 0559 Lidocaine 2 PAT Q24H 07/21 1630 AC 07/25 EXT 1745 Lidocaine 1 ANI DAILY NEEDED PRN 07/20 1015 AC TOP Lidocaine/Prilocaine 1 ANI DAILY PRN 07/20 1315 AC 07/26 TOP 1534 Methylprednisolone 40 MG Q12 07/25 2200 AC 07/27 IV 0918 Pantoprazole Sodium 40 MG DAILY 07/20 1000 AC 07/27 IV 0918 Paricalcitol 2 MCG ONCE ONE 07/26 2045 DC IV 07/26 2046 Polyethylene Glycol 17 GM DAILY AC 07/22 1118 AC 07/27 PO 0559 Senna 187 MG DAILY 07/22 1115 AC 07/27 PO 0917 Sevelamer Carbonate 800 MG WM 07/20 0800 AC 07/27 PO 0918 Vitamin E 400 IU DAILY 07/20 1000 AC 07/27 PO 0917 Vital Signs & I&O Last 24 Hrs of Vitals and I&O: Vital Signs Date Time Temp Pulse Resp B/P B/P Pulse O2 O2 Flow FiO2 Mean Ox Delivery Rate 07/27 0918 90 148/80 07/27 0822 94 Nasal 3.0L Cannula 07/27 0800 95 Nasal 3.0L Cannula 07/27 0605 97.8 108 20 138/72 94 07/27 0000 95 Nasal 3.0L Cannula 01/24 2200 97.9 97 20 142/80 95 Nasal 3.0L Cannula 07/26 1640 96 Nasal 3.0L Cannula 07/26 1600 93 Nasal 4.0L Cannula 07/26 1459 97.8 100 20 141/90 93 Nasal 4.0L Cannula Intake & Output 07/27 1600 07/27 0800 07/27 0000 Intake Total 200 820 Output Total 200 2000 Balance 0 -1180 Intake, IV 0 20 Intake, Oral 200 800 Number 0 Bowel Movements Output, 2000 Dialysate Output, Urine 200 0 Patient 247 lb 238 lb Weight Weight Bed scale Measurement Method Exam Other Physical Findings: Generally - Awake, alert Head and neck - normocephalic, atraumatic, EOMI grossly intact Cardiovascular - S1, S2 Lungs -bilateral rhonchi that are scattered Abdomen - Bowel sounds positive, soft, non-tender Extremities - without edema Results Last 24 Hrs of Lab Results: Laboratory Tests 07/27/17 0905: Anion Gap 14, Estimated GFR 14 L, BUN/Creatinine Ratio 11.4, Total Bilirubin 11.2 H, Direct Bilirubin 10.3 H, AST 108 H, ALT 119 H, Alkaline Phosphatase 352 H, Total Protein 6.5, Albumin 3.6, CBC w Diff MAN DIFF ORDERED, RBC 2.59 L , MCV 92.1, MCH 30.2, MCHC 32.8 L, RDW 17.6 H, MPV 7.8, Gran % 90.5 H, Lymphocytes % 4.3 L, Monocytes % 5.1, Eosinophils % 0.1, Basophils % 0, Absolute Granulocytes 8.6 H, Segmented Neutrophils 89 H, Absolute Lymphocytes 0.4 L, Lymphocytes 5 L, Monocytes 2, Absolute Monocytes 0.5, Eosinophils 1, Absolute Eosinophils 0, Absolute Basophils 0, Metamyelocytes 2 H, Myelocytes 1 H, Platelet Estimate VERIFIED BY SMEAR, Polychromasia 1+, Basophilic Stippling 1 +, Anisocytosis 1+, Stomatocytes 1+ 07/26/172058: Anion Gap 16, Estimated GFR 27 L, BUN/Creatinine Ratio 11.7, Calcium 8.7 07/26/17 172: Anion Gap 20 H, Estimated GFR 8 L, BUN/Creatinine Ratio 13.1, Calcium 8.1 L, Phosphorus 6.0 H, Magnesium 2.1, Albumin 3.8 Impression/Plan Impression/Plan Impression/Plan: Impressoin 87 year old man * elevated lfts, jaundice * dyapnea - influenza - possible bronchiolitis/infectious reactive airways * nasra declines cpap therapy * esrd on hd * chronic hypoxemic and hypercarbic respiratory failure Plan -dc solumedrol, prednisone 40mg today with a taper -elevated ca19-9, GI recommending ERCP/EUS -TRC/Nebs - goal spo2 >90% -f/u gastroenterology recs, f/u and trend lfts, d/w GI what imaging modality if any would be recommended -f/u cardiology recs -s/p tamiflu course for influenza A -HD per nephrology DVT prophylaxis at all times
[2017-07-27] MEDS ORDERED: PREDNISONE10 M2 PO (12:23)
[2017-07-27 12:25] VITALS: BP 148/76
--- NOTE | 2017-07-27 12:25 | Patient Discharge Instructions ---
Discharge Instructions General Discharge Information You were seen/treated for: PNEUMONIA HYPERBILIRUBINEMIA WITH ELEVATED CA 19-9 ESRD Special Instructions: please will follow up with primary care physician in one week of discharge Please follow-up with gastroenterology in 1-2 weeks of discharge Please take medications as prescribed Activity Additional ACTIVITY Info: as tolerated Acute Coronary Syndrome Inclusion Criteria At DC or during hospital stay patient has or had the following: ACS DIAGNOSIS No Discharge Core Measures Meds if any: Prescribed or Continued at Discharge Meds if any: NOT Prescribed or Continued at Discharge Congestive Heart Failure Inclusion Criteria At DC or during hospital stay patient has or had the following: CHF DIAGNOSIS No Discharge Core Measures Meds if any: Prescribed or Continued at Discharge Meds if any: NOT Prescribed or Continued at Discharge Cerebrovascular accident Inclusion Criteria At DC or during hospital stay patient has or had the following: CVA/TIA Diagnosis No Discharge Core Measures Meds if any: Prescribed or Continued at Discharge Meds if any: NOT Prescribed or Continued at Discharge Venous thromboembolism Inclusion Criteria VTE Diagnosis No VTE Type NONE VTE Confirmed by (Test) NONE Discharge Core Measures - Per Current guidelines, there needs to be overlap - treatment for the first 5 days of Warfarin therapy. - If discharged on Warfarin prior to 5 days of - overlap therapy, the patient will need to be - assessed for post discharge needs including - *Post discharge parental anticoagulation - *Warfarin and/or parental anticoagulation education - *Follow up date to check INR post discharge At least 5 days overlap therapy as Inpatient No Meds if any: Prescribed or Continued at Discharge Note: Overlap Therapy is Warfarin and Anticoagulant Meds if any: NOT Prescribed or Continued at Discharge
[2017-07-27] MEDS ORDERED: OMEPRAZOLE40 M1 PO (12:29)
[2017-07-27 13:21] VITALS: BP 148/80
== END 2017-07-27 15:45 | disposition short-term general hospital (02) | DRG 193 ==
LOC: ERH 14:06 → 2NB 19:10 → ERHI 19:10 → CRI 19:10 → ENRESERV 20:25 → ENTRNSPT 21:24 → EDTRNSPTSTS 21:27 → CMPTRNSPT 22:06 → CRI 22:20 → 2NB 07-22 12:18 → ENPENDDIS 07-27 12:43 → 2NB 07-27 15:45
PROVIDERS: Internal Medicine; Internal Medicine Endocrinology, Diabetes & Metabolism; Physician Assistant Medical; Student in an Organized Health Care Education/Training Program
PROC: 5A1D70Z Performance of Urinary Filtration, Intermittent, Less than 6 Hours Per Day (ICD-10-PCS; principal; 2017-07-20)
PROC: 5A1D70Z Performance of Urinary Filtration, Intermittent, Less than 6 Hours Per Day (ICD-10-PCS; 2017-07-21)
PROC: 5A1D70Z Performance of Urinary Filtration, Intermittent, Less than 6 Hours Per Day (ICD-10-PCS; 2017-07-24)
PROC: 5A1D70Z Performance of Urinary Filtration, Intermittent, Less than 6 Hours Per Day (ICD-10-PCS; 2017-07-26)
DX: J10.1 Influenza due to other identified influenza virus with other respiratory manifestations (principal); N18.6 End stage renal disease; I13.2 Hypertensive heart and chronic kidney disease with heart failure and with stage 5 chronic kidney disease, or end stage renal disease; J96.11 Chronic respiratory failure with hypoxia; I27.29 Other secondary pulmonary hypertension; J96.12 Chronic respiratory failure with hypercapnia; R17 Unspecified jaundice; I50.32 Chronic diastolic (congestive) heart failure; D63.1 Anemia in chronic kidney disease; E86.0 Dehydration; Z99.2 Dependence on renal dialysis; K80.20 Calculus of gallbladder without cholecystitis without obstruction; G47.33 Obstructive sleep apnea (adult) (pediatric); E80.6 Other disorders of bilirubin metabolism; I35.0 Nonrheumatic aortic (valve) stenosis; I25.10 Atherosclerotic heart disease of native coronary artery without angina pectoris; Z95.1 Presence of aortocoronary bypass graft; Z85.038 Personal history of other malignant neoplasm of large intestine; G89.29 Other chronic pain; Z99.81 Dependence on supplemental oxygen; M19.90 Unspecified osteoarthritis, unspecified site; E03.9 Hypothyroidism, unspecified; Z87.891 Personal history of nicotine dependence; M54.5 Low back pain; I44.0 Atrioventricular block, first degree; D50.9 Iron deficiency anemia, unspecified; I65.29 Occlusion and stenosis of unspecified carotid artery; R01.1 Cardiac murmur, unspecified
CPT/HCPCS: 2NBP; CCU; 36415; 71045; 74176; 82436; 87449; 87450; 87804; 87804-59; 93005; 93010; 93306; 96374; 97116-GO; 97161-GP; 97530-GO; G0480; J0885; J2501; J2920; J3490; J7040

== ENCOUNTER 2017-08-09 07:18 | Emergency (ER) | payer OTHER, MEDICARE ==
[~2017-08-09 07:18] MED LIST changes: +DULOXETINE HCL30 MG PO; +ISOSORBIDE MONO10 M1 PO; +LIDOCAINE1 EACH TOP; +NEURONTIN300 M1 PO; +OMEPRAZOLE40 M1 PO; +PANTOPRAZOLE SO40 M2 IV; +SOLU-MEDRO40 MG/1 ML IV; +VITAMIN E400 UNI1 PO
--- NOTE | 2017-08-09 07:24 | ED CRITICAL CARE ---
History of Present Illness General Chief Complaint: Cardiopulmonary Resuscitation Stated Complaint: CPR Source: family, old records, EMS Exam Limitations: clinical condition Vital Signs & Intake/Output Vital Signs & Intake/Output SEE TRIAGE NOTES Allergies Coded Allergies: NO KNOWN ALLERGIES (09/28/15) Reconcile Medications Aspirin (Aspirin*) 81 MG TAB.CHEW 1 TAB PO DAILY cad Cholecalciferol (Vitamin D3) (Vitamin D) 1,000 UNIT TABLET 1 TAB PO DAILY SUPPLEMENT (Reported) Docusate Sodium (Colace) 100 MG CAPSULE 1 CAP PO BID STOOL SOFTENER (Reported ) Duloxetine HCl 30 MG CAPSULE.DR 1 CAP PO DAILY Mental Health (Reported) Epoetin Earnest (Procrit) 40,000 UNIT/ML VIAL 40,000 UNIT SC Q2W ANEMIA ( Reported) Gabapentin (Neurontin) 300 MG CAPSULE 1 CAP PO QPM NEUROPATHY (Reported) Isosorbide Mononitrate 10 MG TABLET 1 TAB PO BID HEART (Reported) Labetalol HCl 300 MG TABLET 1 TAB PO QAM BP (Reported) Labetalol HCl 300 MG TABLET 150 MG PO QPM BP (Reported) Levothyroxine Sodium 50 MCG TABLET 1 TAB PO DAILY THYROID (Reported) Lidocaine 5 % ADH..PATCH 1 PAT TOP DAILY PAIN (Reported) Nephro-Vitamins (Nephro-Becca Tablet) 0.8 MG TABLET 1 TAB PO DAILY esrd Omeprazole 40 MG CAPSULE.DR 1 CAP PO DAILY ACID REFLUX Prednisone 10 MG TABLET 40 MG PO DAILY COPD 40 MGX 2DAYS THEN 30 MG FOR 2 DAYS THEN 20 MG X 2 DAYS THEN 10 MG X 2 DAYS AND STOP Sennosides (Senokot) 8.6 MG TABLET 1 TAB PO DAILY GI (Reported) Sevelamer Carbonate (Renvela) 800 MG TABLET 1 TAB PO WM ESRD Vitamin E (Dl,Tocopheryl Acet) (Vitamin E) 400 UNIT CAPSULE 1 CAP PO DAILY SUPPLEMENT (Reported) Triage Nurses Notes Reviewed? yes Onset: Abrupt Duration: minute(s): (FEW) Timing: single episode today Injury Environment: home Severity: severe HPI: 87 year old male with significant past medical history of ESRD recent admission for melena, GI bleed, transferred to [facility] for biliary stent diagnosed with biliary cancer presents from home for chief complaint of passing out on the toilet. According to EMS the reports he passed out on the toilet hit his head on the way down. He mumbles a few words about falling and then became unresponsive. He was found asystolic. Patient was intubated with a Combitube in the field, IV access was obtained. He received 9 epis in the field as well as 100 mg of Solu-Medrol. He was given an amp of calcium on route to the hospital. Patient remained without any return of spontaneous circulation, then founded PEA. Per patient's he was just discharged on Monday from [facility] after the biliary stent. They were supposed to follow up further on in the week to reevaluate his liver function tests. Past History Medical History Any Pertinent Medical History? 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 FATHER, , Age 70; Cause: Myocardial infarction. Relation not specified for: colon cancer in mother Hx Contributory? No Review of Systems Review of Systems Constitutional: Reports: see HPI (PATIENT IN CARDIAC ARREST). Physical Exam Physical Exam General Appearance: well developed/nourished, severe distress, obese Head: LEFT FOREHEAD HEMATOMA/LACERATION Eyes: Bilateral: other (FIXED/DILATED, CHEMOSIS). Neck: normal inspection Respiratory: B/L AIR ENTRY WITH BVM Cardiovascular: NO HEART SOUNDS HEARD Peripheral Pulses: 0 carotid (R), 0 carotid (L) Gastrointestinal: SOFT, OBESE, DISTENDED Extremities: MOTTLED Diagram Head: 1) HEMATOMA Core Measures ACS in differential dx? Yes CVA/TIA Diagnosis No Sepsis Present: No Sepsis Focused Exam Completed? No Progress Differential Diagnoses I considered the following diagnoses in my evaluation of the patient: [CARDIAC ARREST, PE, ICH, RESPIRATORY ARREST] Plan of Care: Current Medications Sig/Tiffanie Start time Last Medication Dose Stop Time Status Admin Epinephrine 1 MG ONCE ONE 08/09 744 UNVr (Epi Kit (1 MG Per 08/09 745 10 Ml) Inj) Epinephrine 1 MG ONCE ONE 08/09 744 UNVr (Epi Kit (1 MG Per 08/09 745 10 Ml) Inj) Sodium Bicarbonate 50 MEQ ONCE ONE 08/09 744 UNVr (Sodium Bicarbonate 08/09 745 8.4% Syringe) epi 2, bicarbonate 1 given. No carotid pulses. Ultrasound without any cardiac movement. PA on monitor. Code called at 7:21 AM. Resuscitation efforts lasted over one hour. FAMILY SENIOR DATA WAREHOUSE ARCHITECT RASHEED HAYWARD CONTACTED. Initial ED EKG: none Rhythm Strip: PEA Departure Departure Disposition: Condition: Stable Clinical Impression Primary Impression: Cardiac arrest Referrals: Pricila Duong APRN (PCP/Family) Departure Forms: General Discharge Information Critical Care Note Critical Care Note Critical Care Time: 30-74 min (INCLUDING DOCUMENTATION)
== END 2017-08-09 07:21 | disposition expired ==
LOC: ERH 07:18 → ENTRNSPT 14:05 → CMPTRNSPT 14:13 → EDTRNSPT 14:13 → EDTRNSPTSTS 14:13 → CMPTRNSPT 14:15
DX: I46.9 Cardiac arrest, cause unspecified (principal)
CPT/HCPCS: 1387; 94799; 96374; 96375; 99291